=== PATIENT | female | born 1955 | race Caucasian/White ===

== ENCOUNTER 2019-03-03 06:52 | Inpatient (IN) ==
[2019-03-03] MEDS ORDERED: ONDANSETRON INJ 2 MG/ML 2 ML VIAL IV STA (07:04)
[2019-03-03] MEDS ORDERED: SODIUM CHLORIDE 0.9% 1000ML 1,000 ML IV ONE (07:04)
[2019-03-03 07:11] LABS: Basophils # (auto) 0.02 K/uL (0-0.2); Basophils % (auto) 0.4 %; Eosinophils # (auto) 0.11 K/uL (0-0.5); Hematocrit (blood only) 24.8 % (37-47); Hemoglobin 8.4 g/dL (12.0-16.0); Immature Granulocytes # (auto) 0.01 K/uL (0.00-0.02); Immature Granulocytes % (auto) 0.2 %; Lymphocytes # (auto) 2.25 K/uL (1.2-3.4); Lymphocytes % (auto) 40.3 %; Mean Corpuscular Hemoglobin 28.1 pg (25-34); Mean Corpuscular Hgb Conc 33.9 g/dL (32-36); Mean Corpuscular Volume 82.9 fL (80-100); Mean Platelet Volume 9.4 fL (7.4-10.4); Monocytes # (auto) 0.42 K/uL (0.11-0.59); Monocytes % (auto) 7.5 %; Neutrophils # (auto) 2.78 K/uL (1.4-6.5); Neutrophils % (auto) 49.6 %; Platelet Count 305 K/uL (130-400); RDW Coefficient of Variation 14.6 % (11.5-14.5); Red Blood Count 2.99 M/uL (4.2-5.4); White Blood Count 5.59 K/uL (4.8-10.8)
[2019-03-03] MEDS ORDERED: PANTOprazole 80 MG in DEXTROSE 5% 100 ML IV SCH (07:15)
[2019-03-03] MEDS ORDERED: SODIUM CHLORIDE 0.9% 1000ML 1,000 ML IV SCH (07:15)
[2019-03-03 07:28] LABS: Alanine Aminotransferase 25 U/L (12-78); Aspartate Aminotransferase 14 U/L (15-37); BUN Creatinine Ratio 35.1 (10-20); Blood Urea Nitrogen 20 mg/dl (7-18); Calcium 8.2 mg/dl (8.5-10.1); Carbon Dioxide 25 mmol/L (21-32); Chloride 104 mmol/L (98-107); Creatinine Clr Calc Pharmacy 106.8 ml/min; Est GFR (African American) 114.5; Est GFR (Non-African American) 98.8; Glucose 150 mg/dl (70-99); Partial Thromboplastin Time 25.8 Seconds (21.0-31.0); Potassium 3.8 mmol/L (3.5-5.1); Prothrombin Time 10.3 Seconds (9.0-12.0); Sodium 139 mmol/L (136-145)
[2019-03-03] MEDS ORDERED: PANTOprazole 40 MG in DEXTROSE 5% 100 ML IV SCH (07:30)
[2019-03-03 07:33] LABS: Alkaline Phosphatase 80 U/L (45-117); Bilirubin,Total 0.6 mg/dl (0.2-1); Troponin I < 0.015 ng/ml (0-0.045)
--- NOTE | 2019-03-03 08:08 | Emergency Department Note ---
Entered by Hang Beyer acting as a scribe for History of Present Illness General Chief complaint: GI Assessment Stated complaint: DIZZY/GI ASSESSMENT Time Seen by Provider: 03/03/19 06:54 Source: patient and EMS History of Present Illness Provider complaint: GI assessment Onset (ago): day(s) 3 Location: abdomen Severity: similar to prior episodes Pain Consistency: + constant Relieved By: + none Exacerbated By: + none Associated symptoms: + denies other symptoms (Abdominal pain); no fever/chills and no nausea/vomiting The patient is a 63 year old female who presents to the Emergency Room for a GI assessment after having black tarry stool consistently for the past 3 days. Per EMS, the patient woke up this morning and became dizzy and short of breath while ambulating so she called EMS. The patient states she has had prior episodes of GI bleeding in the past and has needed blood transfusions. The patient also has a history of gastric ulcer and reports taking a lot of Ibuprofen as of late for chronic back pain caused by her history of scoliosis, spinal stenosis, and bulging discs. The patient adds that she has a colonoscopy scheduled in 2 days and she has had one before. She also has a history of hypertension. Per EMS, the patient's blood pressure was initially 107/52, his BSG was 172, and he was 98% on room air. Home Medications Home Medications Medication Instructions Recorded Confirmed Type alprazolam [Xanax] 0.5 mg PO HS PRN 03/03/19 03/03/19 History amlodipine [Norvasc] 10 mg PO DAILY 03/03/19 03/03/19 History aripiprazole [Abilify] 10 mg PO DAILY 03/03/19 03/03/19 History bupropion HCl [Wellbutrin SR] 450 mg PO DAILY 03/03/19 03/03/19 History dextroamphetamine-amphetamine 45 mg PO BID 03/03/19 03/03/19 History [Adderall] gabapentin 1,800 mg PO BID 03/03/19 03/03/19 History hydrocodone-acetaminophen [Stanton] 0 tab PO DAILY PRN 03/03/19 03/03/19 History hydromorphone [Dilaudid] 4 mg PO TID PRN 03/03/19 03/03/19 History Allergies Allergy/AdvReac Type Severity Reaction Status Date / Time Bactrim Allergy Unknown unknown Verified 03/20/13 21:21 Cipro Allergy Unknown unknown Verified 03/20/13 21:21 ciprofloxacin Allergy Unknown unknown Verified 03/03/19 07:19 sulfamethoxazole Allergy Unknown unknown Verified 03/03/19 07:19 trimethoprim Allergy Unknown unknown Verified 03/03/19 07:19 IVP CONTRAST DYE Allergy Unknown UNKNOWN Uncoded 03/03/19 07:19 Past Med/Surg History Medical History GI bleed Family History Other No pertinent family history in first degree relatives Social History Feels Safe at Home: Yes Smoking Status: Never smoker Review of Systems See HPI for pertinent positives & negatives. and A total of 10 systems reviewed and were otherwise negative Physical Exam Vital Signs Vital Signs - 24 hr 03/03/19 07:12 03/03/19 07:24 03/03/19 07:30 Temperature 36.6 C Temperature Source Oral Sepsis Recent Fever Within 48 Hours No Sepsis New/Unexplained Change in Mental Status No Sepsis Action Taken by Nursing No Action Required Pulse Rate 91 H 90 Pulse Rate [Apical] Pulse Rate from SpO2 Sensor 91 H Pulse Rhythm Regular Pulse Rhythm [Apical] Pulse Strength Normal Respiratory Rate 20 17 Respiratory Effort / Characteristics Non-Labored Spontaneous Respiratory Depth Normal Respiratory Pattern Regular Blood Pressure 118/70 124/66 Blood Pressure [Right Arm] Blood Pressure Mean 86 85 Blood Pressure Mean [Right Arm] Blood Pressure Position Lying Pulse Oximetry 99 99 100 Oxygen Delivery Method Room Air Room Air 03/03/19 08:00 Temperature Temperature Source Sepsis Recent Fever Within 48 Hours Sepsis New/Unexplained Change in Mental Status Sepsis Action Taken by Nursing Pulse Rate 89 Pulse Rate [Apical] 88 Pulse Rate from SpO2 Sensor 88 Pulse Rhythm Pulse Rhythm [Apical] Regular Pulse Strength Respiratory Rate 17 Respiratory Effort / Characteristics Non-Labored Spontaneous Respiratory Depth Normal Respiratory Pattern Regular Blood Pressure 121/64 Blood Pressure [Right Arm] 121/64 Blood Pressure Mean 83 Blood Pressure Mean [Right Arm] 83 Blood Pressure Position Pulse Oximetry 95 Oxygen Delivery Method Room Air GENERAL: Awake, alert, well-appearing, in no distress HENT: Normocephalic, atraumatic. Oropharynx unremarkable. EYES: Normal conjunctiva. Sclera non-icteric. NECK: Supple. No nuchal rigidity. FROM. No masses. RESPIRATORY: Clear to auscultation. No wheezes. No rales. Normal respiratory effort. CARDIAC: Normal rate. Normal rhythm. No murmurs. No rubs. Extremities warm and well perfused. Pulses equal. No JVD. GI: Soft, non-distended. No tenderness to palpation. No rebound or guarding. No masses. RECTAL: Black melanotic stool, heme positive. MUSCULOSKELETAL: Atraumatic. Chest examination reveals no tenderness. The back is symmetrical on inspection without obvious abnormality. There is no CVA tenderness to palpation. No joint edema. LOWER EXTREMITIES: Calves are equal size bilaterally and non-tender. No edema. No discoloration. NEURO: Normal sensorium. No sensory or motor deficits noted. Course 0655: Past medical records reviewed. The patient was evaluated in room B02, and a complete history and physical examination were performed. Given the patient's current symptoms and history, I informed her that it is very likely she will be hospitalized for further care. She is aware of the severity of the situation and agrees with the treatment plan. 0730: I spoke to Dr. Shea [facility] Hospitalist about the patient's case. He is going to accept the patient for further evaluation. Consultations Consultation #1: I spoke to Dr. Shabbir Munroe [facility] Hospitalist about the patient's case. He is going to accept the patient for further evaluation. Time: 07:30 Administered Medications Sodium Chloride (Nss 1000ml) 1,000 mls @ 100 mls/hr IV .Q10H TON Stop: 03/03/19 17:14 Last Admin: 03/03/19 07:30 Dose: 100 mls/hr Documented by: [id number] Pantoprazole Sodium 40 mg/ (Dextrose) 100 mls @ 20 mls/hr IV Q5H TON Stop: 03/03/19 12:29 Last Admin: 03/03/19 07:51 Dose: 20 mls/hr Documented by: [id number] Discontinued Medications Sodium Chloride (Nss 1000ml) 1,000 mls @ 999 mls/hr IV .Q1H1M ONE Stop: 03/03/19 08:04 Last Infusion: 03/03/19 07:48 Dose: 0 mls/hr Documented by: [id number] Admin: 03/03/19 07:23 Dose: 999 mls/hr Documented by: [id number] Pantoprazole Sodium 80 mg/ (Dextrose) 120 mls @ 480 mls/hr IV TODAY@0715 TON Stop: 03/03/19 07:29 Last Infusion: 03/03/19 07:51 Dose: 0 mls/hr Documented by: [id number] Admin: 03/03/19 07:29 Dose: 480 mls/hr Documented by: [id number] Ondansetron HCl (Zofran) 4 mg IV NOW STA Stop: 03/03/19 07:05 Last Admin: 03/03/19 07:29 Dose: 4 mg Documented by: [id number] Medical Decision Making Differential Diagnosis Differential: Diverticulitis, AVM, Coagulopathy, Colitis, Malignancy, Upper GI bleed, Fissure, Hemorrhoids, amongst other pathologies entertained. Medical Records Attestation: I reviewed the patient's medical records. Home Medications Current Medication List: was personally reviewed by me Laboratory Data Attestation: I reviewed the patient's lab results. Result diagrams: 03/03/19 06:25 03/03/19 06:25 Lab Results 03/03/19 03/03/19 03/03/19 Range/Units 06:25 06:25 06:25 WBC 5.59 (4.8-10.8) K/uL RBC 2.99 L (4.2-5.4) M/uL Hgb 8.4 L (12.0-16.0) g/dL Hct 24.8 L (37-47) % MCV 82.9 (80-100) fL MCH 28.1 (25-34) pg MCHC 33.9 (32-36) g/dL RDW Std Deviation 44.0 (36.4-46.3) fL RDW Coeff of Faizan 14.6 H (11.5-14.5) % Plt Count 305 (130-400) K/uL MPV 9.4 (7.4-10.4) fL Immature Gran % (Auto) 0.2 % Neut % (Auto) 49.6 % Lymph % (Auto) 40.3 % [place] % (Auto) 7.5 % Eos % (Auto) 2.0 % Baso % (Auto) 0.4 % Immature Gran # (Auto) 0.01 (0.00-0.02) K/uL Neut # (Auto) 2.78 (1.4-6.5) K/uL Lymph # (Auto) 2.25 (1.2-3.4) K/uL [place] # (Auto) 0.42 (0.11-0.59) K/uL Eos # (Auto) 0.11 (0-0.5) K/uL Baso # (Auto) 0.02 (0-0.2) K/uL PT 10.3 (9.0-12.0) Seconds INR 1.0 (0.9-1.1) APTT 25.8 (21.0-31.0) Seconds PTT Ratio 1.0 Sodium 139 (136-145) mmol/L Potassium 3.8 (3.5-5.1) mmol/L Chloride 104 (98-107) mmol/L Carbon Dioxide 25 (21-32) mmol/L Anion Gap 10.0 (3-11) BUN 20 H (7-18) mg/dl Creatinine 0.58 L (0.6-1.2) mg/dl Est Cr Clr Drug Dosing 106.8 ml/min Est GFR ( Amer) 114.5 Est GFR (Non-Af Amer) 98.8 BUN/Creatinine Ratio 35.1 H (10-20) Glucose 150 H (70-99) mg/dl Calcium 8.2 L (8.5-10.1) mg/dl Total Bilirubin 0.6 (0.2-1) mg/dl AST 14 L (15-37) U/L ALT 25 (12-78) U/L Alkaline Phosphatase 80 (45-117) U/L Troponin I < 0.015 (0-0.045) ng/ml Total Protein 6.0 L (6.4-8.2) gm/dl Albumin 3.0 L (3.4-5.0) gm/dl Globulin 3.0 (2.5-4.0) gm/dl Albumin/Globulin Ratio 1.0 (0.9-2) POC Stool Occult Blood (Negative) 03/03/19 Range/Units 07:11 WBC (4.8-10.8) K/uL RBC (4.2-5.4) M/uL Hgb (12.0-16.0) g/dL Hct (37-47) % MCV (80-100) fL MCH (25-34) pg MCHC (32-36) g/dL RDW Std Deviation (36.4-46.3) fL RDW Coeff of Faizan (11.5-14.5) % Plt Count (130-400) K/uL MPV (7.4-10.4) fL Immature Gran % (Auto) % Neut % (Auto) % Lymph % (Auto) % [place] % (Auto) % Eos % (Auto) % Baso % (Auto) % Immature Gran # (Auto) (0.00-0.02) K/uL Neut # (Auto) (1.4-6.5) K/uL Lymph # (Auto) (1.2-3.4) K/uL [place]ley # (Auto) (0.11-0.59) K/uL Eos # (Auto) (0-0.5) K/uL Baso # (Auto) (0-0.2) K/uL PT (9.0-12.0) Seconds INR (0.9-1.1) APTT (21.0-31.0) Seconds PTT Ratio Sodium (136-145) mmol/L Potassium (3.5-5.1) mmol/L Chloride (98-107) mmol/L Carbon Dioxide (21-32) mmol/L Anion Gap (3-11) BUN (7-18) mg/dl Creatinine (0.6-1.2) mg/dl Est Cr Clr Drug Dosing ml/min Est GFR ( Amer) Est GFR (Non-Af Amer) BUN/Creatinine Ratio (10-20) Glucose (70-99) mg/dl Calcium (8.5-10.1) mg/dl Total Bilirubin (0.2-1) mg/dl AST (15-37) U/L ALT (12-78) U/L Alkaline Phosphatase (45-117) U/L Troponin I (0-0.045) ng/ml Total Protein (6.4-8.2) gm/dl Albumin (3.4-5.0) gm/dl Globulin (2.5-4.0) gm/dl Albumin/Globulin Ratio (0.9-2) POC Stool Occult Blood Positive A (Negative) ECG Data Attestation: I personally reviewed and interpreted this ECG as follows: Indication: other (GI Bleed) Rate (beats per minute): 91 Rhythm: normal sinus Findings: no PAC, no PVC, no ST depression, no ST elevation, no acute ischemic change and no ectopy Blood Pressure Blood Pressure Findings: Normal blood pressure Blood Pressure Disposition: further management by hospitalist KERRI Narrative This is a 63-year-old female who presents emergency department complaining of melanotic stools. Patient has history of GI bleed and has been taking ibuprofen. She wishes to start following up with physicians up here as opposed to the [facility]. Her hemoglobin here was found to be 8.5. She was typed and screened and started on a Protonix bolus and drip. The patient was original ly hypotensive upon arrival to the emergency department therefore she was given a normal saline bolus x2. Repeat blood pressure revealed improvement in the patient's symptoms. I did discuss the case with the hospitalist service who agreed to admit the patient. Patient was in agreement with the treatment plan. Impression & Plan Acute GI bleeding, Acute hypotension, Anemia Discharge Plan Visit Data Chief Complaint: GI Assessment Stated Complaint: DIZZY/GI ASSESSMENT Other Complaint: Dizziness ED Provider: Killian Pratt Discharge Problem: Acute GI bleeding, Acute hypotension, Anemia Forms Stand Alone Forms: My [facility] Prescriptions Prescriptions: No Action bupropion HCl [Wellbutrin SR] 150 mg Tablet Sustained-Release 12 Hr 450 mg PO DAILY RF: 0 gabapentin 600 mg Tablet 1,800 mg PO BID RF: 0 hydrocodone-acetaminophen [Stanton] 10-325 mg Tablet PO DAILY PRN (Reason: Pain) RF: 0 dextroamphetamine-amphetamine [Adderall] 30 mg Tablet 45 mg PO BID RF: 0 alprazolam [Xanax] 0.5 mg Tablet 0.5 mg PO HS PRN (Reason: Sleep) RF: 0 amlodipine [Norvasc] 10 mg Tablet 10 mg PO DAILY RF: 0 hydromorphone [Dilaudid] 4 mg Tablet 4 mg PO TID PRN (Reason: Pain) RF: 0 aripiprazole [Abilify] 10 mg Tablet 10 mg PO DAILY RF: 0 Referrals Referrals: PCP,NO [Primary Care Provider] - Discharge Problem: Anemia Qualifiers: Anemia type: unspecified type Qualified Code(s): D64.9 - Anemia, unspecified The scribe's documentation has been prepared under my direction and personally reviewed by me in its entirety. I confirm that the note above accurately reflects all work, treatment, procedures, and medical decision making performed by me.
[2019-03-03] MEDS ORDERED: METOCLOPRAMIDE HCL INJ 5 MG/ML 2 ML VIAL IV STA (09:24)
--- NOTE | 2019-03-03 09:24 | Gastrointestinal Consultation ---
Date of Consultation March 03, 2019 Assessment & Plan (1) Acute GI bleeding: (2) Melena: 1. NPO for now. 2. Reglan 10 mg IV now. 3. EGD with Dr. Montgomery for further evaluation. 4. Continue PPI ggt at 8 mg/hr. 5. Maintain 2 large bore IVs. 6. Additional recommendations pending results of testing. Supervising Physician Co-Signing Physician Notes I personally evaluated the patient and agree with the findings as documented by MERNA Mackenzie Exam: abd: soft, nt, nd History of Present Illness Reason for Consultation: Melena Requesting Physician: Dr. Shea Attending Physician: Dr. Shea History of Present Illness Patient is a pleasant 63 year-old female with a history of obesity, depression, chronic low back pain, ADD, HTN and GIB one year ago. She is status post Manolo-en-Y gastric bypass greater than 5 years ago. She reports she had been taking Protonix after her last hospitalization for GIB she was taking oral Protonix but did eventually stop the medication as she was not having any abdominal pain or other GI complaints. One month ago, however, she moved from [place], [place] to [place], [place]. She reports that over the past two weeks, she has been taking oral NSAIDs as moving heavy boxes caused her low back pain to worsen. Three days ago, she began to notice black and tarry stools. This morning she passed two dark stools as well as became quite dizzy and short of breath just ambulating to the restroom from her bedroom. Due to these symptoms and prior history of GIB, she presented to the ER for further evaluation. On arrival, she was noted to have a H&H of 8.4/24.8 with MCV 82.9. BUN was slightly elevated at 20. INR was 1.0. Currently, she is reporting some mild nausea but no vomiting or hematemesis. She has been on placed on a PPI ggt. Last meal was yesterday. She has not had any liquids. Allergies Allergy/AdvReac Type Severity Reaction Status Date / Time Bactrim Allergy Unknown unknown Verified 03/20/13 21:21 Cipro Allergy Unknown unknown Verified 03/20/13 21:21 ciprofloxacin Allergy Unknown unknown Verified 03/03/19 07:19 sulfamethoxazole Allergy Unknown unknown Verified 03/03/19 07:19 trimethoprim Allergy Unknown unknown Verified 03/03/19 07:19 IVP CONTRAST DYE Allergy Unknown UNKNOWN Uncoded 03/03/19 07:19 Home Medications Home Medications Medication Instructions Recorded Confirmed Type alprazolam [Xanax] 0.5 mg PO HS PRN 03/03/19 03/03/19 History amlodipine [Norvasc] 10 mg PO DAILY 03/03/19 03/03/19 History aripiprazole [Abilify] 10 mg PO DAILY 03/03/19 03/03/19 History bupropion HCl [Wellbutrin SR] 450 mg PO DAILY 03/03/19 03/03/19 History dextroamphetamine-amphetamine 45 mg PO BID 03/03/19 03/03/19 History [Adderall] gabapentin 1,800 mg PO BID 03/03/19 03/03/19 History hydrocodone-acetaminophen [Gorin] 0 tab PO DAILY PRN 03/03/19 03/03/19 History hydromorphone [Dilaudid] 4 mg PO TID PRN 03/03/19 03/03/19 History Patient History Medical History GI bleed Family History Mother Colorectal cancer Father Lung cancer Social History Current Living Situation: Family Feels Safe at Home: Yes Smoking Status: Never smoker Hx Alcohol Use: No Immunizations: History as per HPI. Past surgical history significant for: EGD, colonoscopy, Manolo-en-Y bypass, L TKA, R MARTÍN, R TSA, R ankle surgery. Review of Systems Review of Systems: All systems reviewed & are unremarkable except as noted in HPI & below Physical Exam Constitutional: WD/WN, vitals as above Eyes: EOM intact bilaterally Neck: normal appearance Respiratory: normal respiratory effort, lungs clear to auscultation Cardiovascular: Rate/Rhythm: regular rhythm and + tachycardic Gastrointestinal (Abdomen): Inspection/Auscultation: abdomen normal to ins pection and + hyperactive bowel sounds Percussion/Palpation: + abdomen tender (bilateral lower quadrant) Musculoskeletal: Extremities: no cyanosis no lower extremity edema Skin: no rashes, warm and dry Neurologic: moves all extremities Psychiatric: A+Ox3, euthymic affect Results & Data Vital Signs (Past 12 Hours) Vital Signs Temp Pulse Pulse Resp BP BP Pulse Ox 03/03/19 08:00 89 88 17 121/64 121/64 95 10/03/19 07:30 90 17 124/66 100 03/03/19 07:24 99 03/03/19 07:12 36.6 C 91 H 20 118/70 99 Laboratory Results Abnormal lab results 03/03/19 03/03/19 03/03/19 Range/Units 06:25 06:25 07:11 RBC 2.99 L (4.2-5.4) M/uL Hgb 8.4 L (12.0-16.0) g/dL Hct 24.8 L (37-47) % RDW Coeff of Faizan 14.6 H (11.5-14.5) % BUN 20 H (7-18) mg/dl Creatinine 0.58 L (0.6-1.2) mg/dl BUN/Creatinine Ratio 35.1 H (10-20) Glucose 150 H (70-99) mg/dl Calcium 8.2 L (8.5-10.1) mg/dl AST 14 L (15-37) U/L Total Protein 6.0 L (6.4-8.2) gm/dl Albumin 3.0 L (3.4-5.0) gm/dl POC Stool Occult Blood Positive A (Negative) PG Care Time/CCT Total # of Minutes Spent Total Time Spent with Patient: Total time spent is greater than 50% in coordination of care (as documented) at patient's floor/unit and/or counseling patient:
[2019-03-03] MEDS ORDERED: METOCLOPRAMIDE HCL INJ 5 MG/ML 2 ML VIAL ONE (09:37)
--- NOTE | 2019-03-03 09:55 | History & Physical Report ---
Date of Service March 03, 2019 Assessment & Plan (1) Acute GI bleeding: likely upper GI bleed given h/o melena, epigastric pain, Ibuprofen use for the past few weeks will make NPO, plan for EGD of gastric pouch today Protonix drip GI consulted admit to tele (2) Melena: likely due to upper GI bleed melena for past three days (3) Acute hypotension: resolved with NSS bolus no signs of hemorrhagic shock HR < 100 (4) Anemia: acute blood loss anemia Hb is 8.4 repeat this afternoon with a type and cross at that time (5) Chronic pain: continue Dilaudid 4mg PO TID with sip of water (6) H/O gastric bypass: 9 years ago if the pouch shows no signs of bleeding then will discuss with GI to determine if we should transfer to tertiary care (7) Neuropathy: continue Gabapentin (8) Anxiety: continue Xanax HS (9) Depression: Abilify Wellbutrin (10) Osteoarthritis: advised to not take Ibuprofen in the future History of Present Illness Chief Complaint: I've had dark stools Primary Care Provider: NO PCP 63 yo female with history of gastric bypass, Hepatitis C that has been treated, chronic pain syndrome, severe osteoarthritis with multiple joint replacements p resents to the ED today with a chief complaint of dark stools for three days. She says she has a remote history of gastric ulcers. She says that she followed with GI group in the [place] area, her last colonoscopy was 7 years ago and she was actually scheduled for routine screening scope tomorrow. She just moved to the [facility] in the past few weeks. Has yet to establish medical c are here but is interested in transferring her care. She says that her stools have been dark, have been formed. She has had a poor appetite and has been experiencing nausea but no vomiting. She has some lower abdominal pain. She feels weak, light headed, short of breath on exertion. She did not eat this morning, last time she ate or drank was yesterday at 1pm. She denies any hematemesis, denies seeing any bright red blood per rectum. Confirmed her history of gastric bypass 9 years ago, Manolo-en-Y. She says that she has been taking Ibuprofen twice a day for the past few weeks due to arthritis pain. She does not always take the Ibuprofen with food. She denies alcohol consumption, denies taking steroids, denies smoking. In the ED her Hb is 8.4, vitals are stable. Asked to see patient for admission. Medical history: chronic pain syndrome, anxiety disorder, neuropathy, depression, severe osteoarthritis, spinal stenosis, scoliosis, degenerative disc disease, diverticular disease, h/o peptic ulcers, h/o hepatitis C that she reports is fully treated Surgical history: gastric bypass Manolo-en-Y 9 years ago, subsequent breast reduction surgery and tummy tuck, right MARTÍN, right TKA, multiple surgeries on her feet, total ankle replacement, colonoscopy, EGD Social history: non smoker, no alcohol, no drugs, retired Family history: mother from colon cancer, father from lung cancer with brain mets, he was a smoker Allergies Allergy/AdvReac Type Severity Reaction Status Date / Time Bactrim Allergy Unknown unknown Verified 03/20/13 21:21 Cipro Allergy Unknown unknown Verified 03/20/13 21:21 ciprofloxacin Allergy Unknown unknown Verified 03/03/19 07:19 sulfamethoxazole Allergy Unknown unknown Verified 03/03/19 07:19 trimethoprim Allergy Unknown unknown Verified 03/03/19 07:19 IVP CONTRAST DYE Allergy Unknown UNKNOWN Uncoded 03/03/19 07:19 Home Medications Home Medications Medication Instructions Recorded Confirmed Type alprazolam [Xanax] 0.5 mg PO HS PRN 03/03/19 03/03/19 History amlodipine [Norvasc] 10 mg PO DAILY 03/03/19 03/03/19 History aripiprazole [Abilify] 10 mg PO DAILY 03/03/19 03/03/19 History bupropion HCl [Wellbutrin SR] 450 mg PO DAILY 03/03/19 03/03/19 History dextroamphetamine-amphetamine 45 mg PO BID 03/03/19 03/03/19 History [Adderall] gabapentin 1,800 mg PO BID 03/03/19 03/03/19 History hydrocodone-acetaminophen [[place]] 0 tab PO DAILY PRN 03/03/19 03/03/19 History hydromorphone [Dilaudid] 4 mg PO TID PRN 03/03/19 03/03/19 History Past Med/Surg History Medical History GI bleed Family History Mother Colorectal cancer Father Lung cancer Social History Current Living Situation: Family Feels Safe at Home: Yes Smoking Status: Never smoker Hx Alcohol Use: No Review of Systems Review of Systems: All systems reviewed & are unremarkable except as noted in HPI & below Constitutional: + fatigue and + weakness; no fever, no chills and no sweats Respiratory: + dyspnea on exertion; no cough and no dyspnea Cardiovascular: no chest pain, no palpitations, no syncope and no edema Gastrointestinal: + abdominal pain, + nausea and + melena; no vomiting, no constipation, no diarrhea/loose stools and no blood in stools Genitourinary: no dysuria and no urinary frequency Musculoskeletal: + back pain and + joint pain Physical Exam Constitutional: WD/WN, vitals as above + overweight Eyes: PERRL, conjunctivae normal, anicteric sclerae ENMT: external ear and nose normal, oropharynx normal Neck: trachea midline, no thyromegaly Respiratory: normal respiratory effort, lungs clear to auscultation Cardiovascular: RRR, no murmur, no edema Gastrointestinal (Abdomen): Inspection/Auscultation: abdomen normal to inspection; abdomen not distended Percussion/Palpation: + abdomen tender (mild, diffuse), abdomen soft and normal to percussion; no guarding and no hepatosplenomegaly Musculoskeletal: no cyanosis or clubbing, extremities motor strength 5/5 Skin: no rashes, warm and dry Neurologic: patellar DTR's 2+ bilat, sensation intact and PERRL, EOMI, accommodation nl, no face palsy, no dysarthria Psychiatric: A+Ox3, euthymic affect Lymphatic: no cervical or axillary lymphadenopathy Results & Data Vital Signs (Past 12 Hours) Vital Signs Temp Pulse Pulse Resp BP BP Pulse Ox 03/03/19 08:00 89 88 17 121/64 121/64 95 03/03/19 07:30 90 17 124/66 100 03/03/19 07:24 99 03/03/19 07:12 36.6 C 91 H 20 118/70 99 Laboratory Results Laboratory Results - last 24 hr 03/03/19 03/03/19 03/03/19 06:25 06:25 06:25 WBC 5.59 RBC 2.99 L Hgb 8.4 L Hct 24.8 L MCV 82.9 MCH 28.1 MCHC 33.9 RDW Std Deviation 44.0 RDW Coeff of Faizan 14.6 H Plt Count 305 MPV 9.4 Immature Gran % (Auto) 0.2 Neut % (Auto) 49.6 Lymph % (Auto) 40.3 [place] % (Auto) 7.5 Eos % (Auto) 2.0 Baso % (Auto) 0.4 Immature Gran # (Auto) 0.01 Neut # (Auto) 2.78 Lymph # (Auto) 2.25 [place] # (Auto) 0.42 Eos # (Auto) 0.11 Baso # (Auto) 0.02 PT 10.3 INR 1.0 APTT 25.8 PTT Ratio 1.0 Sodium 139 Potassium 3.8 Chloride 104 Carbon Dioxide 25 Anion Gap 10.0 BUN 20 H Creatinine 0.58 L Est Cr Clr Drug Dosing 106.8 Est GFR ( Amer) 114.5 Est GFR (Non-Af Amer) 98.8 BUN/Creatinine Ratio 35.1 H Glucose 150 H Calcium 8.2 L Total Bilirubin 0.6 AST 14 L ALT 25 Alkaline Phosphatase 80 Troponin I < 0.015 Total Protein 6.0 L Albumin 3.0 L Globulin 3.0 Albumin/Globulin Ratio 1.0 POC Stool Occult Blood Blood Type Antibody Screen 03/03/19 03/03/19 07:11 07:11 WBC RBC Hgb Hct MCV MCH MCHC RDW Std Deviation RDW Coeff of Faizan Plt Count MPV Immature Gran % (Auto) Neut % (Auto) Lymph % (Auto) [place] % (Auto) Eos % (Auto) Baso % (Auto) Immature Gran # (Auto) Neut # (Auto) Lymph # (Auto) [place] # (Auto) Eos # (Auto) Baso # (Auto) PT INR APTT PTT Ratio Sodium Potassium Chloride Carbon Dioxide Anion Gap BUN Creatinine Est Cr Clr Drug Dosing Est GFR ( Amer) Est GFR (Non-Af Amer) BUN/Creatinine Ratio Glucose Calcium Total Bilirubin AST ALT Alkaline Phosphatase Troponin I Total Protein Albumin Globulin Albumin/Globulin Ratio POC Stool Occult Blood Positive A Blood Type A Positive Antibody Screen NEGATIVE Code Status & VTE Plan Code Status full code VTE Prophylaxis Plan VTE Prophylaxis will be ordered: Yes PG Care Time/CCT Total # of Minutes Spent Total Time Spent with Patient: Total time spent is greater than 50% in coordination of care (as documented) at patient's floor/unit and/or counseling patient: (1) Anemia Anemia type: unspecified type Qualified Code(s): D64.9 - Anemia, unspecified
[2019-03-03] MEDS ORDERED: MIDAZOLAM HCL 1 MG/ML 2ML VIAL ONE (10:30)
[2019-03-03] MEDS ORDERED: LIDOCAINE HCL 2% 2 ML VIAL/AMP(20MG/ML) INFIL ONE (10:30)
[2019-03-03] MEDS ORDERED: PROPOFOL IV EMULSION 10 MG/ML 20 ML VIAL IV ONE ×2 (10:30→11:17)
[2019-03-03] MEDS ORDERED: ONDANSETRON INJ 2 MG/ML 2 ML VIAL ONE (10:31)
--- NOTE | 2019-03-03 10:38 | Anesthesiology Consultation ---
Date of Service March 03, 2019 Assessment & Plan (1) Encounter for pre-operative examination: Chart Review Chart Review: Acceptable Risk for Surgery and Patient NOT seen in Pre Admission Testing Consults Requested none History Surgery Operation Date: 03/03/19 09:30 Proposed Procedures p Esophagogastroduodenoscopy Dr. Ulises Montgomery MD Height/Weight Height: 5 ft 4 in Weight: 86.1 kg Allergies Allergy/AdvReac Type Severity Reaction Status Date / Time Bactrim Allergy Unknown unknown Verified 03/20/13 21:21 Cipro Allergy Unknown unknown Verified 03/20/13 21:21 ciprofloxacin Allergy Unknown unknown Verified 03/03/19 07:19 sulfamethoxazole Allergy Unknown unknown Verified 03/03/19 07:19 trimethoprim Allergy Unknown unknown Verified 03/03/19 07:19 IVP CONTRAST DYE Allergy Unknown UNKNOWN Uncoded 03/03/19 07:19 Medications Home Medications Medication Instructions Recorded Confirmed Last Taken alprazolam [Xanax] 0.5 mg PO HS PRN 03/03/19 03/03/19 Unknown amlodipine [Norvasc] 10 mg PO DAILY 03/03/19 03/03/19 03/02/19 aripiprazole [Abilify] 10 mg PO DAILY 03/03/19 03/03/19 03/02/19 bupropion HCl [Wellbutrin SR] 450 mg PO DAILY 03/03/19 03/03/19 03/02/19 dextroamphetamine-amphetamine 45 mg PO BID 03/03/19 03/03/19 03/02/19 [Adderall] gabapentin 1,800 mg PO BID 03/03/19 03/03/19 03/02/19 hydrocodone-acetaminophen [[place]] 0 tab PO DAILY PRN 03/03/19 03/03/19 Unknown hydromorphone [Dilaudid] 4 mg PO TID PRN 03/03/19 03/03/19 Unknown Active Medications Generic Name Dose Route Start Last Admin Trade Name Freq PRN Reason Stop Dose Admin Sodium Chloride 1,000 mls @ 100 mls/hr 03/03/19 07:15 03/03/19 07:30 Nss 1000ml IV 03/03/19 17:14 100 mls/hr .Q10H TON Administration Pantoprazole Sodium 40 mg/ 100 mls @ 20 mls/hr 03/03/19 07:30 03/03/19 07:51 Dextrose IV 03/03/19 12:29 20 mls/hr Q5H TON Administration Past Medical History Medical History Osteoarthritis Neuropathy Chronic pain Melena Anemia (Acute) Anxiety Anxiety Depression GI bleed Hypertension Past Family History Family History Mother Colorectal cancer Father Lung cancer Past Surgical History Surgical History H/O gastric bypass Social History Smoking Status: Never smoker Hx Alcohol Use: No Physical Exam Vital Signs Last Vital Signs Temp 36.7 C 03/03/19 10:30 Pulse 89 03/03/19 10:30 Resp 16 03/03/19 10:30 BP 103/66 03/03/19 10:30 Pulse Ox 95 03/03/19 10:30 Testing Laboratory Results 03/03/19 06:25 03/03/19 06:25 PT 10.3 Seconds (9.0-12.0) 03/03/19 06:25 INR 1.0 (0.9-1.1) 03/03/19 06:25 APTT 25.8 Seconds (21.0-31.0) 03/03/19 06:25 Blood Type A Positive 03/03/19 07:11 Antibody Screen NEGATIVE 03/03/19 07:11 Electrocardiogram Date: 03/03/19 Findings: + NSR @ (91) and + NSST changes
[2019-03-03] MEDS ORDERED: ENDOSCOPIC MARKER 5 ML SYR TOP ONE (11:17)
[2019-03-03] MEDS ORDERED: PHENYLEPHRINE 100MCG/ML 5ML SYR ONE (11:27)
--- NOTE | 2019-03-03 11:31 | GI REPORT ---
Patient Name: Milagros Mcgraw Procedure Date: 03/03/2019 10:48 AM Date of : 1955 Admit Type: Emergency Department Age: 63 Gender: Female Attending MD: Anders Montgomery MD Procedure: Upper GI endoscopy Providers: Anders Montgomery MD Referring MD: Referred Self Indications: Melena Medicines: Monitored Anesthesia Care Complications: No immediate complications. Estimated blood loss: None. Estimated Blood Loss: Estimated blood loss: none. Procedure: Pre-Anesthesia Assessment: - Prior Anticoagulants: The patient has taken ibuprofen, last dose was 1 day prior to procedure. - ASA Grade Assessment: III - A patient with severe systemic disease. After obtaining informed consent, the endoscope was passed under direct vision. Throughout the procedure, the patient's blood pressure, pulse, and oxygen saturations were monitored continuously. The Endoscope was introduced through the mouth, and advanced to the afferent and efferent jejunal loops. The patient tolerated the procedure well. Findings: The examined esophagus was normal. Three non-bleeding cratered and superficial gastric ulcers were found. One ulcer with a visible vessel was found at the anastomosis. Area was successfully injected with 8 mL of a 1:10,000 solution of epinephrine for hemostasis. For hemostasis, two hemostatic clips were successfully placed. There was no bleeding at the end of the procedure. Estimated blood loss: none. --the remaining examined stomach was otherwise normal. The examined duodenum was normal. The examined jejunum was normal. Both afferent and efferent loops were examined without active bleeding. Impression: - Normal esophagus. - Non-bleeding gastric ulcers with a visible vessel. Injected. Clips were placed. - Normal examined duodenum. - Normal examined jejunum. - No specimens collected. Recommendation: - [facility]. - Clear liquid diet today. - No ibuprofen, naproxen, or other non-steroidal anti-inflammatory drugs. -Continue PPI drip for 72 hours then switch to protonix 40 mg BID for 8 weeks Anders Montgomery MD 03/03/2019 11:30:50 AM This report has been signed electronically. Note Initiated On: 03/03/2019 10:48 AM Number of Addenda: 0 I attest to the content of the Intraoperative Record and orders documented therein, exceptions below {[id number]}
--- NOTE | 2019-03-03 11:33 | Communication Note ---
Date of Service: March 03, 2019 GI brief procedure note: see full procedure note for complete details EGD performed and showed anastomotic ulcer with visible vessel, this was treated with epinephrine 1:10,000, 8 mL, and endoclips x 2 Recs: protonix drip for 72 hours, then protonix 40 mg BID for 8 weeks clear liquids now, advance diet as tolerated tomorrow morning rest as per primary team
--- NOTE | 2019-03-03 11:36 | Anesthesiology Progress Note ---
Date of Service March 03, 2019 Anesthesia Post Procedure Vital Signs Vital Signs: Temp Pulse Pulse Resp BP BP Pulse Ox 03/03/19 10:30 36.7 C 89 16 103/66 95 03/03/19 09:30 88 17 105/68 03/03/19 08:00 89 88 17 121/64 121/64 95 03/03/19 07:30 90 17 124/66 100 03/03/19 07:24 99 03/03/19 07:12 36.6 C 91 H 20 118/70 99 Transfer of Care Handoff Completed per policy Notes Mental Status: alert / awake / arousable Patient Amnestic to Procedure: Yes Nausea / Vomiting: adequately controlled Pain: adequately controlled Airway Patency, RR, SpO2: stable & adequate BP & HR: stable & adequate Hydration State: stable & adequate Anesthetic Complications: no major complications apparent and Pt Satisfied with anesthetic care Notes: The patient is awake and her vitals are stable.
[2019-03-03] MEDS: PANTOprazole 40 MG in DEXTROSE 5% 100 ML IV SCH ×3 (12:15→22:50)
[2019-03-03] MEDS ORDERED: SODIUM CHLORIDE 0.9% 250 ML IV PRN ×2 (12:44→13:40)
[2019-03-03] MEDS ORDERED: AMPHETAMINE ASP/SULF/DEXTRAMPH 20 MG TAB PO SCH (12:44)
[2019-03-03] MEDS ORDERED: ONDANSETRON INJ 2 MG/ML 2 ML VIAL IV PRN (12:44)
[2019-03-03 13:37] LABS: Hematocrit (blood only) 19.4 % (37-47); Hemoglobin 6.5 g/dL (12.0-16.0)
[2019-03-03] MEDS: GABAPENTIN 600 MG TAB PO SCH ×2 (13:48→21:25)
[2019-03-03] MEDS: ARIPiprazole 10 MG TAB PO SCH (13:48)
[2019-03-03] MEDS: BuPROPion SR 150 MG TABCR PO SCH (13:49)
[2019-03-03] MEDS: AMPHETAMINE ASP/SULF/DEXTRAMPH 5 MG TAB PO SCH ×2 (13:54→21:25)
[2019-03-03] MEDS: AMPHETAMINE ASP/SULF/DEXTRAMPH 20 MG TAB PO SCH ×2 (13:54→21:25)
[2019-03-03] MEDS: HYDROmorphone HCL 2 MG TAB PO PRN ×2 (13:55→18:21)
[2019-03-03 14:06] LABS: iSTAT Creatinine 0.5 mg/dl (0.6-1.3); iSTAT Hemoglobin 7.5 g/dl (12.0-16.0); iSTAT Ionized Calcium 1.1 mmol/l (1.12-1.32); iSTAT Potassium 3.8 mEq/L (3.3-5.0)
[2019-03-03] MEDS ORDERED: SUMAtriptan succinate 25 MG TAB PO ONE (20:53)
[2019-03-03] MEDS ORDERED: SUMAtriptan succinate 100 MG TAB PO ONE (20:53)
[2019-03-03] MEDS: ALPRAZolam 0.5 MG TABLET PO PRN (21:25)
[2019-03-03] MEDS: TRAVOPROST Z 0.004% OPH SOLN 2.5 ML BTL OPB SCH (21:26)
[2019-03-04] MEDS: HYDROmorphone HCL 2 MG TAB PO PRN ×3 (02:40→14:23)
[2019-03-04] MEDS: PANTOprazole 40 MG in DEXTROSE 5% 100 ML IV SCH ×5 (03:54→23:45)
[2019-03-04] MEDS ORDERED: SUMAtriptan succinate 100 MG TAB PO ONE (04:15)
[2019-03-04 07:36] LABS: Hematocrit (blood only) 26.6 % (37-47)
--- NOTE | 2019-03-04 07:41 | Anesthesiology Progress Note ---
Date of Service March 04, 2019 Anesthesia Post Procedure Vital Signs Vital Signs: Temp Pulse Pulse Pulse Resp BP BP 03/04/19 07:29 36.4 C L 81 18 115/74 03/04/19 04:00 36.7 C 92 H 18 03/03/19 23:50 36.9 C 95 H 20 106/70 03/03/19 20:13 36.7 C 92 H 18 129/77 03/03/19 19:32 36.7 C 90 18 117/66 03/03/19 18:42 36.7 C 94 H 20 122/74 03/03/19 18:22 90 18 121/73 03/03/19 18:00 36.9 C 97 H 16 115/70 03/03/19 17:57 36.9 C 93 H 20 122/72 03/03/19 17:41 36.9 C 97 H 20 120/72 03/03/19 17:33 36.9 C 97 H 18 114/69 03/03/19 17:15 36.4 C L 94 H 20 03/03/19 16:10 36.9 C 92 H 18 122/69 03/03/19 16:01 98 H 18 122/69 03/03/19 16:00 99 H 26 H 03/03/19 15:53 36.9 C 98 H 16 121/64 03/03/19 15:46 94 H 17 119/67 03/03/19 15:45 94 H 18 03/03/19 15:31 96 H 19 117/64 03/03/19 15:30 36.9 C 97 H 20 117/64 03/03/19 15:16 96 H 20 119/63 03/03/19 15:15 96 H 19 03/03/19 15:11 97 H 20 120/64 03/03/19 15:10 36.2 C L 64 20 120/64 03/03/19 15:00 97 H 24 03/03/19 14:54 36.2 C L 113 H 19 134/57 L 03/03/19 14:52 120 H 24 134/57 L 03/03/19 14:45 96 H 23 03/03/19 14:30 95 H 19 03/03/19 14:15 85 12 03/03/19 14:00 90 18 03/03/19 13:45 87 17 03/03/19 13:30 89 19 03/03/19 13:15 87 16 03/03/19 13:00 87 13 03/03/19 12:45 90 28 H 03/03/19 12:30 86 19 03/03/19 12:19 36.5 C 86 15 03/03/19 12:16 88 20 03/03/19 12:14 87 89 15 115/62 03/03/19 12:13 03/03/19 11:37 85 22 03/03/19 11:22 36.7 C 89 16 03/03/19 10:30 36.7 C 89 16 03/03/19 09:45 85 15 03/03/19 09:30 88 17 105/68 03/03/19 09:15 89 18 03/03/19 08:45 85 17 03/03/19 08:15 87 18 03/03/19 08:00 89 88 17 121/64 03/03/19 07:45 87 16 BP Pulse Ox 03/04/19 07:29 91 03/04/19 04:00 117/71 91 03/03/19 23:50 95 03/03/19 20:13 96 03/03/19 19:32 94 03/03/19 18:42 96 03/03/19 18:22 98 03/03/19 18:00 94 03/03/19 17:57 98 03/03/19 17:41 98 03/03/19 17:33 98 03/03/19 17:15 122/77 99 03/03/19 16:10 93 03/03/19 16:01 93 03/03/19 16:00 93 03/03/19 15:53 96 03/03/19 15:46 93 03/03/19 15:45 93 03/03/19 15:31 94 03/03/19 15:30 94 03/03/19 15:16 95 03/03/19 15:15 94 03/03/19 15:11 94 03/03/19 15:10 95 03/03/19 15:00 96 03/03/19 14:54 100 03/03/19 14:52 03/03/19 14:45 03/03/19 14:30 03/03/19 14:15 03/03/19 14:00 03/03/19 13:45 03/03/19 13:30 03/03/19 13:15 03/03/19 13:00 03/03/19 12:45 03/03/19 12:30 03/03/19 12:19 115/62 94 03/03/19 12:16 03/03/19 12:14 123/66 95 03/03/19 12:13 94 03/03/19 11:37 123/62 98 03/03/19 11:22 109/57 L 97 03/03/19 10:30 103/66 95 03/03/19 09:45 97 03/03/19 09:30 03/03/19 09:15 100 03/03/19 08:45 98 03/03/19 08:15 95 03/03/19 08:00 121/64 95 03/03/19 07:45 96 Pain Intensity Abdomen: Pain Intensity: 7 Notes Mental Status: alert / awake / arousable and participated in evaluation Patient Amnestic to Procedure: Yes Nausea / Vomiting: adequately controlled Pain: adequately controlled Airway Patency, RR, SpO2: stable & adequate BP & HR: stable & adequate Hydration State: stable & adequate Anesthetic Complications: Pt Satisfied with anesthetic care
[2019-03-04] MEDS: GABAPENTIN 600 MG TAB PO SCH ×2 (08:01→20:46)
[2019-03-04] MEDS: ARIPiprazole 10 MG TAB PO SCH (08:01)
[2019-03-04] MEDS: BuPROPion SR 150 MG TABCR PO SCH (08:01)
[2019-03-04 08:12] LABS: BUN Creatinine Ratio 23.7 (10-20); Calcium 8.1 mg/dl (8.5-10.1); Creatinine Clr Calc Pharmacy 105.5 ml/min; Est GFR (African American) 113.2; Est GFR (Non-African American) 97.7
[2019-03-04] MEDS: AMPHETAMINE ASP/SULF/DEXTRAMPH 20 MG TAB PO SCH ×2 (08:13→20:46)
[2019-03-04] MEDS: AMPHETAMINE ASP/SULF/DEXTRAMPH 5 MG TAB PO SCH ×2 (08:14→20:45)
--- NOTE | 2019-03-04 09:37 | Gastroenterology Progress Note ---
Date of Service March 04, 2019 Assessment & Plan (1) Ulcer at site of surgical anastomosis following bypass of stomach: (2) Melena: 1. Continue Protonix ggt for a total of 72 hours, then can switch to Protonix 40 mg PO BID. 2. Advance diet as tolerated. 3. Avoid NSAIDs. 4. Continue supportive care. 5. Recommend outpatient follow up in our office. Supervising Physician Co-Signing Physician Notes Agree with MERNA Mackenzie Complaining of "upset stomach after eating." Did have a black stool overnight H/H improved s/p transfusion Abd: Soft, NT, ND Continue current therapy with PPI gtt x [address] Pinzon to see patient over the weekend while console attendant. Subjective Status post EGD yesterday with findings of 3 ulcers at the anastomosis one with visible vessel requiring hemostasis with Endoclip placement. She remains on PPI ggt in this regard. Patient reports feeling well today. Did pass some melanotic stool overnight. Denies any abdominal pain, n/v or hematemesis. She did receive 2 units PRBCs. H&H was noted to be 9.0/26.6 this morning. On a clear liquid diet. Review of Systems Constitutional: no fever and no chills Respiratory: no cough and no dyspnea Cardiovascular: no chest pain Gastrointestinal: as per Subjective / HPI Psychiatric: see below Physical Exam Constitutional: WD/WN, vitals as above Respiratory: normal respiratory effort, lungs clear to auscultation Cardiovascular: RRR, no murmur, no edema Gastrointestinal (Abdomen): normal bowel sounds, soft, nontender, no hepatosplenomegaly Psychiatric: A+Ox3, euthymic affect Results & Data Vital Signs (Past 12 Hours) Vital Signs Temp Pulse Resp BP BP Pulse Ox 03/04/19 07:29 36.4 C L 81 18 115/74 91 03/04/19 04:00 36.7 C 92 H 18 117/71 91 03/03/19 23:50 36.9 C 95 H 20 106/70 95 Laboratory Results Abnormal lab results 03/03/19 03/03/19 03/03/19 Range/Units 07:04 07:11 12:59 Hgb 6.5 L* (12.0-16.0) g/dL POC Hgb 7.5 L (12.0-16.0) g/dl Hct 19.4 L* (37-47) % POC Hct 22 L (37-47) % Chloride (98-107) mmol/L POC Creatinine 0.5 L (0.6-1.3) mg/dl BUN/Creatinine Ratio (10-20) Glucose (70-99) mg/dl POC Glucose (other) 157 H (70-99) mg/dl Calcium (8.5-10.1) mg/dl POC Ioniz Calcium [place] 1.10 L (1.12-1.32) mmol/l Crossmatch See Detail 03/04/19 03/04/19 Range/Units 07:17 07:17 Hgb 9.0 L (12.0-16.0) g/dL POC Hgb (12.0-16.0) g/dl Hct 26.6 L (37-47) % POC Hct (37-47) % Chloride 112 H (98-107) mmol/L POC Creatinine (0.6-1.3) mg/dl BUN/Creatinine Ratio 23.7 H (10-20) Glucose 108 H (70-99) mg/dl POC Glucose (other) (70-99) mg/dl Calcium 8.1 L (8.5-10.1) mg/dl POC Ioniz Calcium [place] (1.12-1.32) mmol/l Crossmatch PG Care Time/CCT Total # of Minutes Spent Total Time Spent with Patient: Total time spent is greater than 50% in coordination of care (as documented) at patient's floor/unit and/or counseling patient:
--- NOTE | 2019-03-04 09:50 | Hospitalist Progress Note ---
Date of Service March 04, 2019 Assessment & Plan (1) Ulcer at site of surgical anastomosis following bypass of stomach: seen on EGD on 03/03 one ulcer with visible vessel, successfully treated with epinephrine and clip no signs of active bleeding needs Protonix drip for 72 hours, this will be up Thursday morning 03/06 NO MORE NSAIDS (2) Acute GI bleeding: due to bleeding ulcers, found 3 cratered ulcers in pouch near anastamosis one ulcer with visible vessel, treated with epinephrine and clip no signs of active bleeding, had one dark stool but likely old blood can likely transfer to medical later today (3) Melena: due to bleeding ulcers one episode this AM, old blood, watch for resolution (4) Acute hypotension: resolved with NSS bolus no signs of hemorrhagic shock HR < 100 (5) Anemia: acute blood loss anemia Hb dropped to 6.5 transfused two units, up to 9.0 this morning repeat tomorrow (6) Chronic pain: continue Dilaudid 4mg PO TID with sip of water (7) H/O gastric bypass: 9 years ago (8) Neuropathy: continue Gabapentin (9) Anxiety: continue Xanax HS (10) Depression: Abilify Wellbutrin (11) Osteoarthritis: advised to not take Ibuprofen in the future Subjective patient feeling really good this morning, no abdominal pain, no dyspnea, no light headedness had a small dark stool this AM, discussed that this is likely old blood Hb is 9.0 this morning GI saw patient, she can have regular diet this morning plan for 72 hours of PPI drip which will be Thursday AM d/w RN, if she remains stable this morning will transfer to medical this afternoon no chest pain, no fever, no nausea Review of Systems Review of Systems: All systems reviewed & are unremarkable except as noted in HPI & below Constitutional: no fever Respiratory: no cough and no dyspnea Cardiovascular: no chest pain Gastrointestinal: + melena (one episode); no abdominal pain, no nausea, no vomiting, no constipation, no diarrhea/loose stools and no blood in stools Physical Exam Constitutional: WD/WN, vitals as above + overweight Eyes: PERRL, conjunctivae normal, anicteric sclerae ENMT: external ear and nose normal, oropharynx normal Neck: trachea midline, no thyromegaly Respiratory: normal respiratory effort, lungs clear to auscultation Cardiovascular: RRR, no murmur, no edema Gastrointestinal (Abdomen): normal bowel sounds, soft, nontender, no hepatosplenomegaly Percussion/Palpation: normal to percussion Musculoskeletal: no cyanosis or clubbing, extremities motor strength 5/5 Skin: no rashes, warm and dry Neurologic: patellar DTR's 2+ bilat, sensation intact and PERRL, EOMI, accommodation nl, no face palsy, no dysarthria Psychiatric: A+Ox3, euthymic affect Lymphatic: no cervical or axillary lymphadenopathy Results & Data Vital Signs (Past 12 Hours) Vital Signs Temp Pulse Resp BP BP Pulse Ox 03/04/19 07:29 36.4 C L 81 18 115/74 91 03/04/19 04:00 36.7 C 92 H 18 117/71 91 03/03/19 23:50 36.9 C 95 H 20 106/70 95 Laboratory Results Laboratory Results - last 24 hr 03/03/19 03/03/19 03/03/19 07:04 07:11 12:59 Hgb 6.5 L* POC Hgb 7.5 L Hct 19.4 L* POC Hct 22 L POC Sodium 137 Sodium POC Potassium 3.8 Potassium POC Chloride 101 Chloride Carbon Dioxide POC Total CO2 25 Anion Gap POC Anion Gap 16.0 POC BUN 18 BUN Creatinine POC Creatinine 0.5 L Est Cr Clr Drug Dosing Est GFR ( Amer) Est GFR (Non-Af Amer) BUN/Creatinine Ratio Glucose POC Glucose (other) 157 H Calcium POC Ioniz Calcium Kelsey 1.10 L Blood Type A Positive Blood Type Recheck Antibody Screen NEGATIVE Crossmatch See Detail 03/03/19 03/04/19 03/04/19 13:05 07:17 07:17 Hgb 9.0 L POC Hgb Hct 26.6 L POC Hct POC Sodium Sodium 143 POC Potassium Potassium 4.0 POC Chloride Chloride 112 H Carbon Dioxide 27 POC Total CO2 Anion Gap 5.0 POC Anion Gap POC BUN BUN 14 Creatinine 0.60 POC Creatinine Est Cr Clr Drug Dosing 105.5 Est GFR ( Amer) 113.2 Est GFR (Non-Af Amer) 97.7 BUN/Creatinine Ratio 23.7 H Glucose 108 H POC Glucose (other) Calcium 8.1 L POC Ioniz Calcium Kelsey Blood Type Blood Type Recheck A Positive Antibody Screen Crossmatch Medications Administered Current Inpatient Medications Alprazolam (Xanax) 0.5 mg PO HS PRN PRN Reason: Sleep Stop: 04/02/19 12:43 Last Admin: 03/03/19 21:25 Dose: 0.5 mg Documented by: Amphetamine/Dextroamphetamine (Adderall) 5 mg PO BID [facility] Stop: 03/17/19 12:43 Last Admin: 03/04/19 08:14 Dose: 5 mg Documented by: Amphetamine/Dextroamphetamine (Adderall) 40 mg PO BID [facility] Stop: 04/02/19 12:43 Last Admin: 03/04/19 08:13 Dose: 40 mg Documented by: Aripiprazole (Abilify) 10 mg PO DAILY [facility] Stop: 04/02/19 12:43 Last Admin: 03/04/19 08:01 Dose: 10 mg Documented by: Bupropion HCl (Wellbutrin-Sr) 450 mg PO DAILY [facility] Stop: 04/02/19 12:43 Last Admin: 03/04/19 08:01 Dose: 450 mg Documented by: Gabapentin (Neurontin) 1,800 mg PO BID [facility] Stop: 04/02/19 12:43 Last Admin: 03/04/19 08:01 Dose: 1,800 mg Documented by: Hydromorphone HCl (Dilaudid) 4 mg PO TID PRN PRN Reason: Pain Stop: 04/02/19 12:43 Last Admin: 03/04/19 08:00 Dose: 4 mg Documented by: Sodium Chloride (Nss) 250 mls @ 15 mls/hr IV .[id number] PRN PRN Reason: For Transfusion Stop: 04/02/19 13:39 Pantoprazole Sodium 40 mg/ (Dextrose) 100 mls @ 20 mls/hr IV Q5H [facility] Stop: 03/06/19 06:59 Last Admin: 03/04/19 08:14 Dose: 20 mls/hr Documented by: Ondansetron HCl (Zofran) 4 mg IV Q6H PRN PRN Reason: Nausea Stop: 04/02/19 12:43 PG Care Time/CCT Total # of Minutes Spent Total Time Spent with Patient: Total time spent is greater than 50% in coordination of care (as documented) at patient's floor/unit and/or counseling patient: (1) Anemia Anemia type: unspecified type Qualified Code(s): D64.9 - Anemia, unspecified
[2019-03-04] MEDS: SUMAtriptan succinate 100 MG TAB PO PRN (16:02)
[2019-03-04] MEDS: TRAVOPROST Z 0.004% OPH SOLN 2.5 ML BTL OPB SCH (20:47)
[2019-03-04] MEDS: ALPRAZolam 0.5 MG TABLET PO PRN (20:50)
[2019-03-05] MEDS: HYDROmorphone HCL 2 MG TAB PO PRN ×2 (01:14→17:52)
[2019-03-05] MEDS ORDERED: ALPRAZolam 0.5 MG TABLET PO STA (01:44)
[2019-03-05] MEDS: PANTOprazole 40 MG in DEXTROSE 5% 100 ML IV SCH ×5 (04:27→23:16)
[2019-03-05 05:07] LABS: Hematocrit (blood only) 28.9 % (37-47); Hemoglobin 9.6 g/dL (12.0-16.0)
[2019-03-05 05:32] LABS: BUN Creatinine Ratio 20.4 (10-20); Calcium 8.2 mg/dl (8.5-10.1); Creatinine Clr Calc Pharmacy 95.9 ml/min; Est GFR (African American) 109.7; Est GFR (Non-African American) 94.7
[2019-03-05] MEDS: BuPROPion SR 150 MG TABCR PO SCH (08:51)
[2019-03-05] MEDS: AMPHETAMINE ASP/SULF/DEXTRAMPH 20 MG TAB PO SCH ×2 (08:52→13:55)
[2019-03-05] MEDS: ARIPiprazole 10 MG TAB PO SCH (08:52)
[2019-03-05] MEDS: GABAPENTIN 600 MG TAB PO SCH ×2 (08:52→20:26)
[2019-03-05] MEDS: AMPHETAMINE ASP/SULF/DEXTRAMPH 5 MG TAB PO SCH ×2 (08:53→13:56)
[2019-03-05] MEDS: SUMAtriptan succinate 100 MG TAB PO PRN (08:53)
[2019-03-05] MEDS ORDERED: DICYCLOMINE HCL 10 MG CAP PO PRN (12:48)
--- NOTE | 2019-03-05 12:59 | Hospitalist Progress Note ---
Date of Service March 05, 2019 Assessment & Plan (1) Ulcer at site of surgical anastomosis following bypass of stomach: seen on EGD on 03/03 one ulcer with visible vessel, successfully treated with epinephrine and clip no signs of active bleeding needs Protonix drip for 72 hours, this will be up Thursday morning 03/06 NO MORE NSAIDS (2) Acute GI bleeding: due to bleeding ulcers, found 3 cratered ulcers in pouch near anastamosis one ulcer with visible vessel, treated with epinephrine and clip had a loose dark stool this morning with some cramping and diaphoresis however, Hb went up to 9.6 from 9.0 no further dark stools this AM, will repeat Hb this afternoon (3) Melena: due to bleeding ulcers appear resolved, likely passed old blood this morning (4) Acute hypotension: resolved with NSS bolus no signs of hemorrhagic shock HR < 100 (5) Anemia: acute blood loss anemia Hb dropped to 6.5 transfused two units, up to 9.6 this morning repeat later today (6) Chronic pain: continue Dilaudid 4mg PO TID with sip of water (7) H/O gastric bypass: 9 years ago (8) Neuropathy: continue Gabapentin (9) Anxiety: continue Xanax HS (10) Depression: Abilify Wellbutrin (11) Osteoarthritis: advised to not take Ibuprofen in the future Subjective patient had some loose stools that were dark this morning associated with some abdominal cramping and diaphoresis she feels a little better this morning no nausea or vomiting Hb is up slightly at 9.6 vitals stable she later requested carafate and Bentyl as that makes her feel better in the past Review of Systems Review of Systems: All systems reviewed & are unremarkable except as noted in HPI & below Gastrointestinal: + abdominal pain (cramping), + diarrhea/loose stools and + melena; no nausea, no vomiting and no constipation Physical Exam Constitutional: WD/WN, vitals as above + overweight Eyes: PERRL, conjunctivae normal, anicteric sclerae ENMT: external ear and nose normal, oropharynx normal Neck: trachea midline, no thyromegaly Respiratory: normal respiratory effort, lungs clear to auscultation Cardiovascular: RRR, no murmur, no edema Gastrointestinal (Abdomen): normal bowel sounds, soft, nontender, no hepatosplenomegaly Inspection/Auscultation: abdomen normal to inspection; abdomen not distended Percussion/Palpation: normal to percussion Musculoskeletal: no cyanosis or clubbing, extremities motor strength 5/5 Skin: no rashes, warm and dry Neurologic: patellar DTR's 2+ bilat, sensation intact and PERRL, EOMI, accommodation nl, no face palsy, no dysarthria Psychiatric: A+Ox3, euthymic affect Lymphatic: no cervical or axillary lymphadenopathy Results & Data Vital Signs (Past 12 Hours) Vital Signs Temp Pulse Resp BP Pulse Ox 03/05/19 07:20 36.6 C 89 18 113/70 94 Laboratory Results Laboratory Results - last 24 hr 03/05/19 03/05/19 04:45 04:45 Hgb 9.6 L Hct 28.9 L Sodium 142 Potassium 4.0 Chloride 107 Carbon Dioxide 28 Anion Gap 7.0 BUN 13 Creatinine 0.66 Est Cr Clr Drug Dosing 95.9 Est GFR ( Amer) 109.7 Est GFR (Non-Af Amer) 94.7 BUN/Creatinine Ratio 20.4 H Glucose 95 Calcium 8.2 L Medications Administered Current Inpatient Medications Alprazolam (Xanax) 0.5 mg PO HS PRN PRN Reason: Sleep Stop: 04/02/19 12:43 Last Admin: 03/04/19 20:50 Dose: 0.5 mg Documented by: Amphetamine/Dextroamphetamine (Adderall) 5 mg PO BID [facility] Stop: 03/17/19 12:43 Last Admin: 03/05/19 08:53 Dose: 5 mg Documented by: Amphetamine/Dextroamphetamine (Adderall) 40 mg PO BID [facility] Stop: 04/02/19 12:43 Last Admin: 03/05/19 08:52 Dose: 40 mg Documented by: Aripiprazole (Abilify) 10 mg PO DAILY [facility] Stop: 04/02/19 12:43 Last Admin: 03/05/19 08:52 Dose: 10 mg Documented by: Bupropion HCl (Wellbutrin-Sr) 450 mg PO DAILY [facility] Stop: 04/02/19 12:43 Last Admin: 03/05/19 08:51 Dose: 450 mg Documented by: Dicyclomine HCl (Bentyl) 10 mg PO Q12 PRN PRN Reason: Cramping Stop: 04/04/19 20:59 Gabapentin (Neurontin) 1,800 mg PO BID [facility] Stop: 04/02/19 12:43 Last Admin: 03/05/19 08:52 Dose: 1,800 mg Documented by: Hydromorphone HCl (Dilaudid) 4 mg PO TID PRN PRN Reason: Pain Stop: 04/02/19 12:43 Last Admin: 03/05/19 01:14 Dose: 4 mg Documented by: Sodium Chloride (Nss) 250 mls @ 15 mls/hr IV .[id number] PRN PRN Reason: For Transfusion Stop: 04/02/19 13:39 Pantoprazole Sodium 40 mg/ (Dextrose) 100 mls @ 20 mls/hr IV Q5H [facility] Stop: 03/06/19 06:59 Last Admin: 03/05/19 08:57 Dose: 20 mls/hr Documented by: Ondansetron HCl (Zofran) 4 mg IV Q6H PRN PRN Reason: Nausea Stop: 04/02/19 12:43 Last Admin: 03/04/19 13:14 Dose: 4 mg Documented by: Sucralfate (Carafate) 1 gm PO QID [facility] Stop: 04/04/19 12:59 Sumatriptan Succinate (Imitrex) 100 mg PO DAILY PRN PRN Reason: Migraine Headache Stop: 04/03/19 14:58 Last Admin: 03/05/19 08:53 Dose: 100 mg Documented by: PG Care Time/CCT Total # of Minutes Spent Total Time Spent with Patient: Total time spent is greater than 50% in c oordination of care (as documented) at patient's floor/unit and/or counseling patient: (1) Anemia Anemia type: unspecified type Qualified Code(s): D64.9 - Anemia, unspecified
[2019-03-05] MEDS: SUCRALFATE 1 GM/10 ML UDC PO SCH ×3 (13:25→20:26)
[2019-03-05 13:28] LABS: Hematocrit (blood only) 27.8 % (37-47); Hemoglobin 9.2 g/dL (12.0-16.0)
[2019-03-05] MEDS: TRAVOPROST Z 0.004% OPH SOLN 2.5 ML BTL OPB SCH (20:27)
[2019-03-06] MEDS: SUMAtriptan succinate 100 MG TAB PO PRN (00:20)
[2019-03-06] MEDS: PANTOprazole 40 MG in DEXTROSE 5% 100 ML IV SCH (04:49)
[2019-03-06 06:27] LABS: Hematocrit (blood only) 26.8 % (37-47)
[2019-03-06] MEDS: SUCRALFATE 1 GM/10 ML UDC PO SCH (08:17)
[2019-03-06] MEDS: BuPROPion SR 150 MG TABCR PO SCH (08:17)
[2019-03-06] MEDS: GABAPENTIN 600 MG TAB PO SCH (08:18)
[2019-03-06] MEDS: ARIPiprazole 10 MG TAB PO SCH (08:18)
[2019-03-06] MEDS: AMPHETAMINE ASP/SULF/DEXTRAMPH 20 MG TAB PO SCH (08:19)
[2019-03-06] MEDS: AMPHETAMINE ASP/SULF/DEXTRAMPH 5 MG TAB PO SCH (08:19)
--- NOTE | 2019-03-06 10:15 | Discharge Summary ---
Date of Service March 06, 2019 Admission HPI Per Admitting Provider 63 yo female with history of gastric bypass, Hepatitis C that has been treated, chronic pain syndrome, severe osteoarthritis with multiple joint replacements presents to the ED today with a chief complaint of dark stools for three days. She says she has a remote history of gastric ulcers. She says that she followed with GI group in the [facility], her last colonoscopy was 7 years ago and she was actually scheduled for routine screening scope tomorrow. She just moved to the [facility] in the past few weeks. Has yet to establish medical care here but is interested in transferring her care. She says that her stools have been dark, have been formed. She has had a poor appetite and has been experiencing nausea but no vomiting. She has some lower abdominal pain. She feels weak, light headed, short of breath on exertion. She did not eat this morning, last time she ate or drank was yesterday at 1pm. She denies any hematemesis, denies seeing any bright red blood per rectum. Confirmed her history of gastric bypass 9 years ago, Manolo-en-Y. She says that she has been taking Ibuprofen twice a day for the past few weeks due to arthritis pain. She does not always take the Ibuprofen with food. She denies alcohol consumption, denies taking steroids, denies smoking. In the ED her Hb is 8.4, vitals are stable. Asked to see patient for admission. Medical history: chronic pain syndrome, anxiety disorder, neuropathy, depression, severe osteoarthritis, spinal stenosis, scoliosis, degenerative disc disease, diverticular disease, h/o peptic ulcers, h/o hepatitis C that she reports is fully treated Surgical history: gastric bypass Manolo-en-Y 9 years ago, subsequent breast reduction surgery and tummy tuck, right MARTÍN, right TKA, multiple surgeries on her feet, total ankle replacement, colonoscopy, EGD Social history: non smoker, no alcohol, no drugs, retired Family history: mother from colon cancer, father from lung cancer with brain mets, he was a smoker Principal Diagnosis GI bleed due to gastric ulcers Discharge Exam Constitutional WD/WN, vitals as above + overweight Eyes PERRL, conjunctivae normal, anicteric sclerae ENMT external ear and nose normal, oropharynx normal Neck trachea midline, no thyromegaly Respiratory normal respiratory effort, lungs clear to auscultation Cardiovascular RRR, no murmur, no edema Gastrointestinal (Abdomen) normal bowel sounds, soft, nontender, no hepatosplenomegaly Inspection/Auscultation: abdomen normal to inspection; abdomen not distended Percussion/Palpation: normal to percussion Musculoskeletal no cyanosis or clubbing, extremities motor strength 5/5 Skin no rashes, warm and dry Neurologic patellar DTR's 2+ bilat, sensation intact and PERRL, EOMI, accommodation nl, no face palsy, no dysarthria Psychiatric A+Ox3, euthymic affect Lymphatic no cervical or axillary lymphadenopathy Discharge Data Allergies Allergy/AdvReac Type Severity Reaction Status Date / Time Bactrim Allergy Unknown unknown Verified 03/20/13 21:21 Cipro Allergy Unknown unknown Verified 03/20/13 21:21 ciprofloxacin Allergy Unknown unknown Verified 03/03/19 07:19 Iodinated Contrast Media Allergy Unknown Unknown Verified 03/05/19 12:54 sulfamethoxazole Allergy Unknown unknown Verified 03/03/19 07:19 trimethoprim Allergy Unknown unknown Verified 03/03/19 07:19 Consultations 03/03/19 07:41 ED Decision to Admit Stat Procedures Performed Operation Date: 03/03/19 09:30 Actual Procedures p Esophagogastroduodenoscopy - Anders Montgomery MD Hospital Course (1) Ulcer at site of surgical anastomosis following bypass of stomach: seen on EGD on 03/03 one ulcer with visible vessel, successfully treated with epinephrine and clip no signs of active bleeding received Protonix drip for 72 hours, finished morning of 03/06 change to Protonix 40mg BID for next 4 weeks then once a day follow up with [facility] in [place] few weeks NO MORE NSAIDS (2) Acute GI bleeding: due to bleeding ulcers, found 3 cratered ulcers in pouch near anastamosis one ulcer with visible vessel, treated with epinephrine and clip had a loose dark stool in morning on 03/05 with some cramping and diaphoresis however, Hb has been stable for over 48 hours, 9.0 this morning no further dark stools the past 24 hours (3) Melena: due to bleeding ulcers appear resolved, likely passed old blood morning of 03/05 (4) Acute hypotension: resolved with NSS bolus no signs of hemorrhagic shock HR < 100 (5) Anemia: acute blood loss anemia Hb dropped to 6.5 on 03/03 (day of admission) transfused two units, up to 9.0 the following morning stable for 48 hours, 9.0 the day of discharge (6) Chronic pain: continue Dilaudid 4mg PO TID with sip of water (7) H/O gastric bypass: 9 years ago (8) Neuropathy: continue Gabapentin (9) Anxiety: continue Xanax HS (10) Depression: Abilify Wellbutrin (11) Osteoarthritis: advised to avoid all NSAIDS will need to discuss alternatives with her PCP Total Time Total Time Spent Total Time Spent (In Minutes): 35 minutes Total Time Includes: Examination of the Patient, Discharge Planning and Medication Reconciliation Discharge Plan Discharge Items Patient Disposition: Home - Self-Care Reason For Visit: GI BLEED Discharge Diagnosis: GI bleed due to ulcers at anastamosis of gastric bypass Acute blood loss anemia Condition on Discharge: Good Health Concerns: avoid all NSAIDs in the future (ibuprofen, naproxen, etc) Goals: improve disease control follow up with PCP and GI Activity: Resume your previous activity Non-emergency contact: Primary Care Provider and Portfolio Assistant Call non-emergency contact if: you have any medication questions, your symptoms worsen and you have a fever Follow-up/Referrals: PCP,NO [Primary Care Provider] - Diet: Regular Addtl Attending Provider Instructions: Medications: - PROTONIX: take twice a day for 4 weeks and then once a day to help prevent ulcers - CARAFATE: finish several more days to help ulcers heal Gastric ulcers at site of gastric bypass anastamosis, with signs of bleeding, acute blood loss anemia ulcers treated with Protonix drip for 72 hours, Hb has been stable since transfusion one ulcer was injected with epinephrine and clip was placed you will continue on Protonix 40mg twice a day for 4 weeks and then daily complete several more days of carafate AVOID ALL NSAIDS IN THE FUTURE, no ibuprofen, naproxen, etc FOLLOW UP - PCP in [place] in 1-2 weeks - [facility] in a few weeks, Pending Studies at Discharge: No Stand-Alone Forms: My [facility] Medications and DC Order Prescriptions: New sucralfate [Carafate] 100 mg/mL suspension 10 ml PO QID 6 Days Qty: 240 RF: 0 pantoprazole [Protonix] 40 mg tablet,delayed release (DR/EC) 40 mg PO BID 30 Days Qty: 60 RF: 1 Continued bupropion HCl [Wellbutrin SR] 150 mg Tablet Sustained-Release 12 Hr 450 mg PO DAILY RF: 0 gabapentin 600 mg Tablet 1,800 mg PO BID RF: 0 hydrocodone-acetaminophen [[place]] 10-325 mg Tablet PO DAILY PRN (Reason: Pain) RF: 0 dextroamphetamine-amphetamine [Adderall] 30 mg Tablet 45 mg PO BID RF: 0 alprazolam [Xanax] 0.5 mg Tablet 0.5 mg PO HS PRN (Reason: Sleep) RF: 0 amlodipine [Norvasc] 10 mg Tablet 10 mg PO DAILY RF: 0 hydromorphone [Dilaudid] 4 mg Tablet 4 mg PO TID PRN (Reason: Pain) RF: 0 aripiprazole [Abilify] 10 mg Tablet 10 mg PO DAILY RF: 0 Discharge Orders: Discharge Order (Routine); Ordered 03/06/19 Ordered By: Compa Shea Admission Data Admit Date/Time: 03/03/19 07:43 Attending Provider: Compa Shea Admit Provider: Compa Shea Primary Care Provider: PCP,NO Other Providers: Compa Shea Other Interventions: Discharge Summary Assessment (RN) Last Done: 03/06/19 09:44
[2019-03-06] MEDS ORDERED: ONDANSETRON 4 MG OD TAB PO STA (10:16)
== END 2019-03-06 12:41 | disposition home or self-care (01) | DRG 378 ==
LOC: ED 06:52 → 1E 07:43 → 2S 17:20 → 4W 03-04 09:50

== ENCOUNTER 2020-03-04 08:30 | Observation (INO) ==
[2020-03-04] MEDS ORDERED: PANTOprazole 80 MG in DEXTROSE 5% 100 ML IV ONE (08:45)
[2020-03-04] MEDS ORDERED: SODIUM CHLORIDE 0.9% 1000ML 1,000 ML IV SCH (08:45)
[2020-03-04] MEDS ORDERED: PANTOprazole 40 MG in SYRINGE 0 ML IV ONE (08:45)
[2020-03-04 09:01] LABS: Basophils # (auto) 0.04 K/uL (0-0.2); Basophils % (auto) 0.8 %; Eosinophils # (auto) 0.22 K/uL (0-0.5); Eosinophils % (auto) 4.4 %; Hematocrit (blood only) 34.4 % (37-47); Hemoglobin 11.3 g/dL (12.0-16.0); Lymphocytes # (auto) 1.85 K/uL (1.2-3.4); Lymphocytes % (auto) 36.9 %; Mean Corpuscular Hemoglobin 27.4 pg (25-34); Mean Corpuscular Hgb Conc 32.8 g/dL (32-36); Mean Corpuscular Volume 83.3 fL (80-100); Mean Platelet Volume 9.1 fL (7.4-10.4); Monocytes # (auto) 0.38 K/uL (0.11-0.59); Monocytes % (auto) 7.6 %; Neutrophils # (auto) 2.53 K/uL (1.4-6.5); Neutrophils % (auto) 50.3 %; Platelet Count 290 K/uL (130-400); RDW Coefficient of Variation 14.6 % (11.5-14.5); RDW Standard Deviation 44.8 fL (36.4-46.3); Red Blood Count 4.13 M/uL (4.2-5.4); White Blood Count 5.02 K/uL (4.8-10.8)
[2020-03-04 09:11] LABS: Partial Thromboplastin Time 27.6 Seconds (21.0-31.0); Prothrombin Time 10.6 Seconds (9.0-12.0)
[2020-03-04 09:17] LABS: Alanine Aminotransferase 21 U/L (12-78); Aspartate Aminotransferase 16 U/L (15-37); BUN Creatinine Ratio 40.1 (10-20); Blood Urea Nitrogen 25 mg/dl (7-18); Carbon Dioxide 29 mmol/L (21-32); Chloride 107 mmol/L (98-107); Creatinine Clr Calc Pharmacy 98.4 ml/min; Est GFR (African American) 110.6; Est GFR (Non-African American) 95.5; Glucose 132 mg/dl (70-99); Potassium 4.5 mmol/L (3.5-5.1); Sodium 140 mmol/L (136-145)
[2020-03-04 09:21] LABS: Albumin Globulin Ratio 0.9 (0.9-2); Alkaline Phosphatase 80 U/L (45-117); Bilirubin,Total 0.5 mg/dl (0.2-1); Globulin 3.4 gm/dl (2.5-4.0); Total Protein 6.4 gm/dl (6.4-8.2); Troponin I < 0.015 ng/ml (0-0.045)
[2020-03-04] MEDS: PANTOprazole 40 MG in DEXTROSE 5% 100 ML IV SCH ×2 (09:45→15:24)
--- NOTE | 2020-03-04 09:56 | Electrocardiogram Report ---
Test Reason : Blood Pressure : / mmHG Vent. Rate : 089 BPM Atrial Rate : 089 BPM P-R Int : 162 ms QRS Dur : 080 ms QT Int : 364 ms P-R-T Axes : 041 -19 049 degrees QTc Int : 442 ms Poor data quality, interpretation may be adversely affected Normal sinus rhythm Poor R wave progression, consider anterior VT vs. lead placement vs. LVH Abnormal ECG When compared with ECG of 03-MAR-2019 06:56, Minimal criteria for Anterior infarct are now Present Confirmed by Vic Crain ([id number]) on 03/04/2020 9:56:15 AM Referred By: REFERRED SELF Confirmed By:Prashant Crain
[2020-03-04] MEDS ORDERED: ONDANSETRON INJ 2 MG/ML 2 ML VIAL IV STA (12:19)
[2020-03-04] MEDS ORDERED: SODIUM CHLORIDE 0.9% 1000ML 1,000 ML IV ONE (12:19)
[2020-03-04] MEDS ORDERED: SODIUM CHLORIDE 0.9% 250 ML IV PRN ×2 (12:47→15:00)
[2020-03-04 12:48] LABS: iSTAT Creatinine 0.4 mg/dl (0.6-1.3); iSTAT Hemoglobin 7.8 g/dl (12.0-16.0); iSTAT Ionized Calcium 1.15 mmol/l (1.12-1.32); iSTAT Potassium 4.4 mmol/L (3.3-5.0)
--- NOTE | 2020-03-04 13:21 | Emergency Department Note ---
History of Present Illness General Chief complaint: GI Assessment Time Seen by Provider: 03/04/20 08:38 Source: patient Mode of arrival: ambulatory Limitations: no limitations History of Present Illness HPI Narrative: This is a 64-year-old female who presents to the ED with a chief complaint of rectal bleeding. The patient states that her symptoms started at 8:30 PM last night. She states that she has had 3 episodes of dark red bleeding from the rectum since 8:30 PM. She states that she has a history of gastric bypass with a anastomosis ulcer with previous bleeding from the area at least twice in the past. She has seen Dr. Montgomery for this. The patient has required intervention for this by Dr. Montgomery. She has a little shortness of breath and a little lightheadedness. The patient denies any other complaints at this time. Home Medications Home Medications Medication Instructions Recorded Confirmed Type gabapentin See Rx Instructions .ROUTE .COMPLEX 03/03/19 03/04/20 History bupropion HCl 150 mg tablet,12 hr 450 mg PO QAM ea 08/02/19 03/04/20 History sustained-release hydrocodone bitartrate 30 mg PO QAM 12/07/19 03/04/20 History hydromorphone 4 mg PO BID PRN 12/07/19 03/04/20 History Brain Power ~ Dr Stewart 2 tab PO BID 03/04/20 03/04/20 History Cholacol 1 tab PO TIDM 03/04/20 03/04/20 History Focus Energy ~ Dr Stewart 2 tab PO BID 03/04/20 03/04/20 History amlodipine 10 mg PO QAM 03/04/20 03/04/20 History aripiprazole 5 mg PO HS 03/04/20 03/04/20 History ascorbic acid (vitamin C) [Vitamin 3,000 mg PO TID 03/04/20 03/04/20 History C] dextroamphetamine-amphetamine 30 mg PO BID 03/04/20 03/04/20 History digestive enzymes 1 cap PO TIDM 03/04/20 03/04/20 History epinephrine 0.3 mg SUBCUT UD 03/04/20 03/04/20 History lorazepam 1.5 mg PO HS PRN 03/04/20 03/04/20 History magnesium oxide 800 mg PO HS 03/04/20 03/04/20 History melatonin 20 mg PO HS 03/04/20 03/04/20 History metoclopramide HCl [Reglan] 10 mg PO AC 03/04/20 03/04/20 History omega 3-chc-wwb-fish oil [Fish Oil] 1 cap PO BID 03/04/20 03/04/20 History sumatriptan succinate 4 mg SUBCUT UD PRN 03/04/20 03/04/20 History Allergies Allergy/AdvReac Type Severity Reaction Status Date / Time Bactrim Allergy Unknown unknown Verified 03/20/13 21:21 sulfamethoxazole Allergy Unknown at age 20, Verified 03/04/20 09:16 can not remember what happened trimethoprim Allergy Unknown at age 20, Verified 03/04/20 09:16 can not remember what happened Past Med/Surg History Medical History Anemia Anxiety Attention deficit disorder (ADD) Bulging discs Chronic pain Depression GI bleed hx of Glaucoma Hepatitis C hx - treated History of anesthesia reaction hx of waking up during procedures Hypertension Medical marijuana use Migraine Neuropathy Osteoarthritis Scoliosis Spinal stenosis Surgical History History of appendectomy History of bilateral breast reduction surgery History of bilateral cataract extraction History of bilateral tubal ligation History of cardiac cath 2005 [facility]---"fistula in heart between 2 valves"--no stents History of cholecystectomy History of colonoscopy History of esophagogastroduodenoscopy (EGD) History of eye surgery right---scar tissue from cataract sx History of fusion of cervical spine C4-C5--normal ROM History of lung biopsy right side--benign History of mandibular surgery 1978--wired shut History of open reduction and internal fixation (ORIF) procedure right ankle--hardware in place History of partial hysterectomy History of right shoulder replacement History of Manolo-en-Y gastric bypass History of tooth extraction History of total left knee replacement (TKR) x2 History of total right hip replacement History of wisdom tooth extraction Status post left foot surgery x7-hardware in place Status post right foot surgery x7--hardware in place Family History Mother Colorectal cancer Father Lung cancer Family history of esophageal cancer Brother Family history of esophageal cancer Grandfather (Maternal) Family history of esophageal cancer Other No family history of adverse response to anesthesia Social History Smoking Status: Never smoker Second Hand Exposure: Yes (parents smoked); Hx Alcohol Use: No Hx Substance Use: Yes (medical marijuana card) Last Used Substance: Days (ago) Last Used Substance Other:: uses daily for sleep Preferred Language: Faroese Communication Ability: Effective Non Destructive Testing Supervisor Required: No Beliefs That Will Affect Care: None Current Living Situation: Family Current Living Situation Comment: Lives with brother Feels Safe at Home: Yes Assistive Devices: None Review of Systems A total of 10 systems reviewed and were otherwise negative Physical Exam Vital Signs: Vital Signs - 24 hr 03/04/20 08:32 03/04/20 08:36 03/04/20 08:40 Temperature 36.7 C Temperature Source Oral Pulse Rate 91 H 95 H 92 H Pulse Rate from Sp O2 Sensor 91 H 92 H Respiratory Rate 14 18 20 Blood Pressure 136/75 136/75 Blood Pressure Lani n 83 95 Pulse Oximetry 94 96 96 Oxygen Delivery Me thod Room Air Sepsis Recent Feve r Within 48 Hours No Sepsis New/Unexpla ined Change in Men floyd Status No Sepsis Action Take n by Nursing No Action Required 03/04/20 08:56 03/04/20 09:27 03/04/20 09:28 Temperature Temperature Source Pulse Rate 98 H 94 H Pulse Rate from Sp O2 Sensor Respiratory Rate 16 16 Blood Pressure 111/70 Blood Pressure Lani n 93 Pulse Oximetry 96 Oxygen Delivery Me thod Room Air Sepsis Recent Feve r Within 48 Hours Sepsis New/Unexpla ined Change in Men floyd Status Sepsis Action Take n by Nursing 03/04/20 09:30 03/04/20 10:00 03/04/20 10:01 Temperature Temperature Source Pulse Rate 97 H 86 91 H Pulse Rate from Sp O2 Sensor Respiratory Rate 22 16 17 Blood Pressure 119/75 118/70 Blood Pressure Lani n 88 75 Pulse Oximetry Oxygen Delivery Me thod Sepsis Recent Feve r Within 48 Hours Sepsis New/Unexpla ined Change in Men floyd Status Sepsis Action Take n by Nursing 03/04/20 10:30 03/04/20 10:31 03/04/20 11:00 Temperature Temperature Source Pulse Rate 81 82 88 Pulse Rate from Sp O2 Sensor Respiratory Rate 15 18 26 H Blood Pressure 121/68 119/72 Blood Pressure Lani n 74 88 Pulse Oximetry Oxygen Delivery Me thod Sepsis Recent Feve r Within 48 Hours Sepsis New/Unexpla ined Change in Men floyd Status Sepsis Action Take n by Nursing 03/04/20 11:30 03/04/20 11:48 03/04/20 12:00 Temperature Temperature Source Pulse Rate 82 82 77 Pulse Rate from Sp O2 Sensor Respiratory Rate 17 16 15 Blood Pressure 93/58 L 92/55 L Blood Pressure Lani n 71 66 Pulse Oximetry Oxygen Delivery Me thod Sepsis Recent Feve r Within 48 Hours Sepsis New/Unexpla ined Change in Men floyd Status Sepsis Action Take n by Nursing 03/04/20 12:18 03/04/20 12:30 03/04/20 12:32 Temperature Temperature Source Pulse Rate 84 78 78 Pulse Rate from Sp O2 Sensor 83 79 79 Respiratory Rate 14 16 15 Blood Pressure 72/55 L 99/63 L Blood Pressure Lani n 59 73 Pulse Oximetry 93 93 93 Oxygen Delivery Me thod Sepsis Recent Feve r Within 48 Hours Sepsis New/Unexpla ined Change in Men floyd Status Sepsis Action Take n by Nursing Physical Exam: CONSTITUTIONAL/VITAL SIGNS: Reviewed / noted above. GENERAL: Non-toxic in appearance. INTEGUMENTARY: Warm, dry, and [place]. HEAD: Normocephalic. EYES: without scleral icterus or trauma. ENT/OROPHARYNX: clear and moist. LYMPHADENOPATHY/NECK: Is supple without lymphadenopathy or meningismus. RESPIRATORY: Lungs clear and equal. CARDIOVASCULAR: Regular rate and rhythm. GI/ABDOMEN: Soft and nontender. No organomegaly or pulsatile mass. No rebound or guarding. Normal bowel sounds. EXTREMITIES: Warm and well perfused. BACK: No CVA tenderness. NEUROLOGICAL: Intact without focal deficits. PSYCHIATRIC: normal affect. MUSCULOSKELETAL: Normally developed with good muscle tone. TRIAGE NURSING DOCUMENTATION REVIEWED. Course Administered Medications Pantoprazole Sodium 40 mg/ (Dextrose) 100 mls @ 20 mls/hr IV Q5H TON Stop: 04/03/20 09:29 Last Admin: 03/04/20 09:45 Dose: 8 mg/hr, 20 mls/hr Documented by: [id number] Sodium Chloride (Nss 1000ml) 1,000 mls @ 999 mls/hr IV .Q1H1M ONE Stop: 03/04/20 13:19 Last Admin: 03/04/20 12:39 Dose: 999 mls/hr Documented by: [id number] Discontinued Medications Sodium Chloride (Nss 1000ml) 1,000 mls @ 999 mls/hr IV .Q1H1M TON Stop: 03/04/20 09:45 Last Infusion: 03/04/20 10:45 Dose: 0 mls/hr Documented by: [id number] Admin: 03/04/20 09:45 Dose: 999 mls/hr Documented by: [id number] Pantoprazole Sodium 80 mg/ (Dextrose) 100 mls @ 400 mls/hr IV NOW ONE Stop: 03/04/20 08:59 Last Infusion: 03/04/20 10:00 Dose: 0 mls/hr Documented by: [id number] Admin: 03/04/20 09:45 Dose: 400 mls/hr Documented by: [id number] Ondansetron HCl (Ondansetron Inj 2 Mg/Ml 2 Ml Vial) 4 mg IV NOW STA Stop: 03/04/20 12:20 Last Admin: 03/04/20 12:39 Dose: 4 mg Documented by: [id number] Medical Decision Making Differential Diagnosis + hemorrhoids, + gastritis, + Ashley-Orta syndrome, + Upper gastrointestinal hemorrhage, + Lower gastrointestinal hemorrhage, + hematochezia, + melena, + coagulopathy, + malignancy and + variceal bleed Medical Records Attestation: I reviewed the patient's medical records. Home Medications Current Medication List: was personally reviewed by me Laboratory Data Attestation: I reviewed the patient's lab results. Result diagrams: 03/04/20 08:49 03/04/20 08:49 Lab Results 03/04/20 03/04/20 03/04/20 Range/Units 08:49 08:49 08:49 WBC 5.02 (4.8-10.8) K/uL RBC 4.13 L (4.2-5.4) M/uL Hgb 11.3 L (12.0-16.0) g/dL POC Hgb (12.0-16.0) g/dl Hct 34.4 L (37-47) % POC Hct (37-47) % MCV 83.3 (80-100) fL MCH 27.4 (25-34) pg MCHC 32.8 (32-36) g/dL RDW Std Deviation 44.8 (36.4-46.3) fL RDW Coeff of Faizan 14.6 H (11.5-14.5) % Plt Count 290 (130-400) K/uL MPV 9.1 (7.4-10.4) fL Immature Gran % (Auto) 0.0 % Neut % (Auto) 50.3 % Lymph % (Auto) 36.9 % [place] % (Auto) 7.6 % Eos % (Auto) 4.4 % Baso % (Auto) 0.8 % Neut # (Auto) 2.53 (1.4-6.5) K/uL Lymph # (Auto) 1.85 (1.2-3.4) K/uL [place] # (Auto) 0.38 (0.11-0.59) K/uL Eos # (Auto) 0.22 (0-0.5) K/uL Baso # (Auto) 0.04 (0-0.2) K/uL Immature Gran # (Auto) 0.00 (0.00-0.02) K/uL PT 10.6 (9.0-12.0) Seconds INR 1.0 (0.9-1.1) APTT 27.6 (21.0-31.0) Seconds PTT Ratio 1.0 POC Sodium (135-144) mmol/L Sodium (136-145) mmol/L POC Potassium (3.3-5.0) mmol/L Potassium (3.5-5.1) mmol/L POC Chloride (101-112) mmol/L Chloride (98-107) mmol/L Carbon Dioxide (21-32) mmol/L POC Total CO2 (24-31) mmol/L Anion Gap (3-11) POC Anion Gap (16-25) mmol/L POC BUN (7-18) mg/dl BUN (7-18) mg/dl Creatinine (0.6-1.2) mg/dl POC Creatinine (0.6-1.3) mg/dl Est Cr Clr Drug Dosing ml/min Est GFR ( Amer) Est GFR (Non-Af Amer) BUN/Creatinine Ratio (10-20) Glucose (70-99) mg/dl POC Glucose (other) (70-99) mg/dl Calcium (8.5-10.1) mg/dl POC Ioniz Calcium Kelsey (1.12-1.32) mmol/l Total Bilirubin (0.2-1) mg/dl AST (15-37) U/L ALT (12-78) U/L Alkaline Phosphatase (45-117) U/L Troponin I (0-0.045) ng/ml Total Protein (6.4-8.2) gm/dl Albumin (3.4-5.0) gm/dl Globulin (2.5-4.0) gm/dl Albumin/Globulin Ratio (0.9-2) Blood Type A Positive Antibody Screen POSITIVE A Antibody Identification Anti-E Antigen Identification E Antigen - NEGATIVE Crossmatch See Detail 03/04/20 03/04/20 Range/Units 08:49 12:35 WBC (4.8-10.8) K/uL RBC (4.2-5.4) M/uL Hgb (12.0-16.0) g/dL POC Hgb 7.8 L (12.0-16.0) g/dl Hct (37-47) % POC Hct 23 L (37-47) % MCV (80-100) fL MCH (25-34) pg MCHC (32-36) g/dL RDW Std Deviation (36.4-46.3) fL RDW Coeff of Faizan (11.5-14.5) % Plt Count (130-400) K/uL MPV (7.4-10.4) fL Immature Gran % (Auto) % Neut % (Auto) % Lymph % (Auto) % [place] % (Auto) % Eos % (Auto) % Baso % (Auto) % Neut # (Auto) (1.4-6.5) K/uL Lymph # (Auto) (1.2-3.4) K/uL [place] # (Auto) (0.11-0.59) K/uL Eos # (Auto) (0-0.5) K/uL Baso # (Auto) (0-0.2) K/uL Immature Gran # (Auto) (0.00-0.02) K/uL PT (9.0-12.0) Seconds INR (0.9-1.1) APTT (21.0-31.0) Seconds PTT Ratio POC Sodium 139 (135-144) mmol/L Sodium 140 (136-145) mmol/L POC Potassium 4.4 (3.3-5.0) mmol/L Potassium 4.5 (3.5-5.1) mmol/L POC Chloride 104 (101-112) mmol/L Chloride 107 (98-107) mmol/L Carbon Dioxide 29 (21-32) mmol/L POC Total CO2 25 (24-31) mmol/L Anion Gap 4.0 (3-11) POC Anion Gap 15.0 L (16-25) mmol/L POC BUN 23 H (7-18) mg/dl BUN 25 H (7-18) mg/dl Creatinine 0.63 (0.6-1.2) mg/dl POC Creatinine 0.4 L (0.6-1.3) mg/dl Est Cr Clr Drug Dosing 98.4 ml/min Est GFR ( Amer) 110.6 Est GFR (Non-Af Amer) 95.5 BUN/Creatinine Ratio 40.1 H (10-20) Glucose 132 H (70-99) mg/dl POC Glucose (other) 144 H (70-99) mg/dl Calcium 9.0 (8.5-10.1) mg/dl POC Ioniz Calcium Kelsey 1.15 (1.12-1.32) mmol/l Total Bilirubin 0.5 (0.2-1) mg/dl AST 16 (15-37) U/L ALT 21 (12-78) U/L Alkaline Phosphatase 80 (45-117) U/L Troponin I < 0.015 (0-0.045) ng/ml Total Protein 6.4 (6.4-8.2) gm/dl Albumin 3.0 L (3.4-5.0) gm/dl Globulin 3.4 (2.5-4.0) gm/dl Albumin/Globulin Ratio 0.9 (0.9-2) Blood Type Antibody Screen Antibody Identification Antigen Identification Crossmatch MDM Narrative The patient presents to the ED as above with history of upper GI bleeding related to an ulcer from her gastric bypass. The patient has had problems with this in the past and required transfusion and intervention. The patient states that she had 3 bloody bowel movement since last night. Her initial hemoglobin today was 11.3 and her BUN was 25. During the patient's ED stay, she became hypotensive with blood pressures in the 70 systolic range. A repeat hemoglobin 4 hours later shows a hemoglobin of 7.8 the patient was typed and crossed for 2 units of blood. Consent was signed. The blood was ordered for ministration in the emergency department. 2 IVs were established. The patient was seen by the hospitalist for further inpatient evaluation and care. She initially received 1000 cc of normal saline. A second liter bolus was provided after the h ypotension. She was also placed on Protonix IV bolus and drip. She was given IV Zofran. Impression & Plan Acute GI bleeding Critical Care Time Critical Care Time: Yes Total Critical Care Time: 40 I have personally spent 40 minutes of critical care time in the direct management of this patient. This includes bedside care, interpretation of diagnostic studies, and testing, discussion with consultants, patient, and family members, and other required patient management activities. This 40 minutes is in excess of all separately billable procedures. Discharge Plan Visit Data Chief Complaint: GI Assessment ED Provider: Killian Cortez Discharge Problem: Acute GI bleeding Patient Disposition: Being Evaluated by Hospitalist Forms Stand Alone Forms: My [facility] Prescriptions Prescriptions: No Action digestive enzymes Capsule 1 cap PO TIDM RF: 0 ascorbic acid (vitamin C) [Vitamin C] 1,000 mg Tablet 3,000 mg PO TID RF: 0 dextroamphetamine-amphetamine 30 mg tablet 30 mg PO BID RF: 0 magnesium oxide 400 mg (241.3 mg magnesium) Tablet 800 mg PO HS RF: 0 amlodipine 10 mg tablet 10 mg PO QAM RF: 0 lorazepam 1 mg tablet 1.5 mg PO HS PRN (Reason: .) RF: 0 epinephrine 0.3 mg/0.3 mL auto-injector 0.3 mg subcut UD RF: 0 metoclopramide HCl [Reglan] 10 mg Tablet 10 mg PO AC RF: 0 aripiprazole 5 mg tablet 5 mg PO HS RF: 0 sumatriptan succinate 4 mg/0.5 mL pen injector 4 mg SUBCUT UD PRN (Reason: Migraine Headache) RF: 0 omega 5-efp-psn-fish oil [Fish Oil] 1,000 mg (120 mg-180 mg) Capsule 1 cap PO BID RF: 0 melatonin 10 mg Tablet 20 mg PO HS RF: 0 Brain Power ~ Dr Amen 2 tab PO BID RF: 0 Cholacol 1 tab PO TIDM RF: 0 Focus Energy ~ Dr Amen 2 tab PO BID RF: 0 gabapentin 600 mg Tablet See Rx Instructions .ROUTE .COMPLEX RF: 0 bupropion HCl [Wellbutrin SR] 150 mg tablet sustained-release 12 hr 450 mg PO QAM RF: 0 hydromorphone 4 mg Tablet 4 mg PO BID PRN (Reason: Pain) RF: 0 hydrocodone bitartrate 30 mg Tablet,Oral Only,Ext.Rel.24 Hr 30 mg PO QAM RF: 0 Referrals Referrals: Sergio Peacock MD [Primary Care Provider] -
--- NOTE | 2020-03-04 13:22 | History & Physical Report ---
Date of Service March 04, 2020 Assessment & Plan (1) Acute GI bleedinyo C female with history of Manolo-en-Y gastric bypass surgery ?15 years ago, gastritis, prior UGIB secondary to ulcers at the anastamosis presenting with melena/symptomatic anemia/hypotension concerning for UGIB. Patient has been seen by GI in the past, most recently by Dr. Montgomery on 12/22/19. Last EGD on 12/13/19 with normal esophagus and gastritis present Last Colonoscopy on 07/05/19 with one 10mm polyp s/p resection otherwise normal -Admit to MICU -NPO -Maintain 2 large bore PIVs -Transfuse 2u PRBCs when blood becomes available. Patient has antibodies - spoke with blood bank who is in the process of identifying antibodies -Monitor CBC q 6 hours, transfuse for active bleed, symptomatic anemia, Hgb <7 -Protonix gtt -Zofran PRN -GI consult appreciated - [facility] -Patient should avoid ASA in the future given history of Gastritis and ulcers Present on Admission?: Yes (2) Acute hypotension: Patient with episode of hypotension, pre-syncope following a bloody BM in the ER. BP has improved with IVF -Transfusion of blood products as above -Normosol 125mL/hr x 1L Present on Admission?: Yes (3) Depression: Chronic. -Continue Bupropion 450mg po qAM -Continue [id number] po qHS Present on Admission?: Yes (4) Anxiety: Chronic -Holding PRN Lorazepam HS dosing -Continue to monitor Present on Admission?: Yes (5) Hypertension: Acute hypotension as above in setting of GIB -Hold Amlodipine -Continue to monitor Present on Admission?: Yes (6) Chronic pain: Patient feels well currently -Continue Hydrocodone 30mg po qAM -Continue Gabapentin -Holding PRN hydrmorphone -Continue to monitor and adjust treatment as needed F/E/N - Normosol 125mL/hr x 1L, transfusion as above, electrolytes WNL, NPO PPx - low risk for dvt, SCDs Code - Full Dispo - Admit to MICU Present on Admission?: Yes History of Present Illness Chief Complaint: UGIB Primary Care Provider: Sergio Peacock MD Milagros Mcgraw is a 64yo C female with history of Manolo-en-Y gastric bypass s urgery, gastritis, HTN. Patient has had 4 prior episodes of UGIB, most recently was March 2019. Yesterday AM she began having bloody bowel movements, 5 episodes of dark maroon stools. She has mild lower abdominal pain as well as nausea. +dizziness +presyncope +chills. No epigastric pain. No hematemesis. Patient does not drink EtOH. She does take ASA for migraine headache - approximately 500mg every other day. Denies vomiting/CP/SOB/fevers/chills. Patient had Coronavirus on November 10 and states she now has antibodies. No concern for additional exposure. Upon arrival to the ER patient afebrile, HD stable. HR =91, WO=598/75. Initial H/H found to be 11.3/34.4. Patient had a bloody BM in the ER with feeling of dizziness and pre-syncope. Her blood pressure dropped to 72/55 at that time. IStat Hgt/Hct performed at that time found to be 7.8/23 ER Course: Zofran 4mg IV, Protonix bolus and gtt, NSS x 2L Allergies Allergy/AdvReac Type Severity Reaction Status Date / Time Bactrim Allergy Unknown unknown Verified 03/20/13 21:21 sulfamethoxazole Allergy Unknown at age 20, Verified 03/04/20 09:16 can not remember what happened trimethoprim Allergy Unknown at age 20, Verified 03/04/20 09:16 can not remember what happened Home Medications Home Medications Medication Instructions Recorded Confirmed Type gabapentin See Rx Instructions .ROUTE .COMPLEX 03/03/19 03/04/20 History bupropion HCl 150 mg tablet,12 hr 450 mg PO QAM ea 08/02/19 03/04/20 History sustained-release hydrocodone bitartrate 30 mg PO QAM 12/07/19 03/04/20 History hydromorphone 4 mg PO BID PRN 12/07/19 03/04/20 History [employer] ~ Dr Stewart 2 tab PO BID 03/04/20 03/04/20 History Cholacol 1 tab PO TIDM 03/04/20 03/04/20 History [employer] ~ Dr Stewart 2 tab PO BID 03/04/20 03/04/20 History amlodipine 10 mg PO QAM 03/04/20 03/04/20 History aripiprazole 5 mg PO HS 03/04/20 03/04/20 History ascorbic acid (vitamin C) [Vitamin 3,000 mg PO TID 03/04/20 03/04/20 History C] dextroamphetamine-amphetamine 30 mg PO BID 03/04/20 03/04/20 History digestive enzymes 1 cap PO TIDM 03/04/20 03/04/20 History epinephrine 0.3 mg SUBCUT UD 03/04/20 03/04/20 History lorazepam 1.5 mg PO HS PRN 03/04/20 03/04/20 History magnesium oxide 800 mg PO HS 03/04/20 03/04/20 History melatonin 20 mg PO HS 03/04/20 03/04/20 History metoclopramide HCl [Reglan] 10 mg PO AC 03/04/20 03/04/20 History omega 8-[id number]-zmw-fish oil [Fish Oil] 1 cap PO BID 03/04/20 03/04/20 History sumatriptan succinate 4 mg SUBCUT UD PRN 03/04/20 03/04/20 History Past Med/Surg History Medical History Anemia Anxiety Attention deficit disorder (ADD) Bulging discs Chronic pain Depression GI bleed hx of Glaucoma Hepatitis C hx - treated History of anesthesia reaction hx of waking up during procedures Hypertension Medical marijuana use Migraine Neuropathy Osteoarthritis Scoliosis Spinal stenosis Surgical History History of appendectomy History of bilateral breast reduction surgery History of bilateral cataract extraction History of bilateral tubal ligation History of cardiac cath 2005 [facility]---"fistula in heart between 2 valves"--no stents History of cholecystectomy History of colonoscopy History of esophagogastroduodenoscopy (EGD) History of eye surgery right---scar tissue from cataract sx History of fusion of cervical spine C4-C5--normal ROM History of lung biopsy right side--benign History of mandibular surgery 1978--wired shut History of open reduction and internal fixation (ORIF) procedure right ankle--hardware in place History of partial hysterectomy History of right shoulder replacement History of Manolo-en-Y gastric bypass History of tooth extraction History of total left knee replacement (TKR) x2 History of total right hip replacement History of wisdom tooth extraction Status post left foot surgery x7-hardware in place Status post right foot surgery x7--hardware in place Family History Mother Colorectal cancer Father Lung cancer Family history of esophageal cancer Brother Family history of esophageal cancer Grandfather (Maternal) Family history of esophageal cancer Other No family history of adverse response to anesthesia Social History Smoking Status: Never smoker Second Hand Exposure: Yes (parents smoked); Hx Alcohol Use: No Hx Substance Use: Yes (medical marijuana card) Last Used Substance: Days (ago) Last Used Substance Other:: uses daily for sleep Preferred Language: Hungarian Communication Ability: Effective Low Raw Sugar Cutter Required: No Beliefs That Will Affect Care: None Current Living Situation: Family Current Living Situation Comment: Lives with brother Feels Safe at Home: Yes Assistive Devices: None Review of Systems Review of Systems: All systems reviewed & are unremarkable except as noted in HPI & below Physical Exam Physical Exam: General: patient resting comfortably, NAD, ill in appearance, AA&O x 4 Skin: warm, dry, intact, no rashes or lesions, patient appears pale HEENT: NC/AT, PERRL, EOMI, anicteric sclera, conjunctiva without injection, external ear normal to inspection and nontender, nares patent, moist mucus membranes, dentition intact, no oropharyngeal lesions, neck supple, trachea midline, no LAD, no thyromegaly, no JVD Heart: +S1/S2, regular, no m/r/g Lungs: equal air entry bilaterally, no rales/rhonchi/wheezes Abd: +BS, soft, ND, tender in the lower abdomen with deep palpation, voluntary guarding, no epigastric pain, no masses/organomegaly/ascites Ext: warm, 2+ pulses in UE/LE bilaterally, no clubbing/cyanosis or edema Neuro: nonfocal, patient AA&O x 4, speech intact, no facial droop, moving all extremities on command with equal strength 5/5 Results & Data Results & Data ([facility]) Vital Signs (Past 12 Hours) Vital Signs Temp Pulse Resp BP Pulse Ox 03/04/20 13:01 82 21 95 03/04/20 13:00 83 108/68 93 03/04/20 12:33 82 19 94 03/04/20 12:32 78 15 99/63 L 93 03/04/20 12:30 78 16 93 03/04/20 12:18 84 14 72/55 L 93 03/04/20 12:00 77 15 92/55 L 03/04/20 11:48 82 16 93/58 L 03/04/20 11:30 82 17 03/04/20 11:00 88 26 H 119/72 03/04/20 10:31 82 18 03/04/20 10:30 81 15 121/68 03/04/20 10:01 91 H 17 03/04/20 10:00 86 16 118/70 03/04/20 09:30 97 H 22 119/75 03/04/20 09:28 94 H 16 03/04/20 09:27 98 H 16 111/70 03/04/20 08:56 96 03/04/20 08:40 92 H 20 96 03/04/20 08:36 36.7 C 95 H 18 136/75 96 03/04/20 08:32 91 H 14 136/75 94 Laboratory Results Lab Results 03/04/20 03/04/20 03/04/20 Range/Units 08:49 08:49 08:49 WBC 5.02 (4.8-10.8) K/uL RBC 4.13 L (4.2-5.4) M/uL Hgb 11.3 L (12.0-16.0) g/dL POC Hgb (12.0-16.0) g/dl Hct 34.4 L (37-47) % POC Hct (37-47) % MCV 83.3 (80-100) fL MCH 27.4 (25-34) pg MCHC 32.8 (32-36) g/dL RDW Std Deviation 44.8 (36.4-46.3) fL RDW Coeff of Faizan 14.6 H (11.5-14.5) % Plt Count 290 (130-400) K/uL MPV 9.1 (7.4-10.4) fL Immature Gran % (Auto) 0.0 % Neut % (Auto) 50.3 % Lymph % (Auto) 36.9 % [place] % (Auto) 7.6 % Eos % (Auto) 4.4 % Baso % (Auto) 0.8 % Neut # (Auto) 2.53 (1.4-6.5) K/uL Lymph # (Auto) 1.85 (1.2-3.4) K/uL [place] # (Auto) 0.38 (0.11-0.59) K/uL Eos # (Auto) 0.22 (0-0.5) K/uL Baso # (Auto) 0.04 (0-0.2) K/uL Immature Gran # (Auto) 0.00 (0.00-0.02) K/uL PT 10.6 (9.0-12.0) Seconds INR 1.0 (0.9-1.1) APTT 27.6 (21.0-31.0) Seconds PTT Ratio 1.0 POC Sodium (135-144) mmol/L Sodium (136-145) mmol/L POC Potassium (3.3-5.0) mmol/L Potassium (3.5-5.1) mmol/L POC Chloride (101-112) mmol/L Chloride (98-107) mmol/L Carbon Dioxide (21-32) mmol/L POC Total CO2 (24-31) mmol/L Anion Gap (3-11) POC Anion Gap (16-25) mmol/L POC BUN (7-18) mg/dl BUN (7-18) mg/dl Creatinine (0.6-1.2) mg/dl POC Creatinine (0.6-1.3) mg/dl Est Cr Clr Drug Dosing ml/min Est GFR ( Amer) Est GFR (Non-Af Amer) BUN/Creatinine Ratio (10-20) Glucose (70-99) mg/dl POC Glucose (other) (70-99) mg/dl Calcium (8.5-10.1) mg/dl POC Ioniz Calcium Kelsey (1.12-1.32) mmol/l Total Bilirubin (0.2-1) mg/dl AST (15-37) U/L ALT (12-78) U/L Alkaline Phosphatase (45-117) U/L Troponin I (0-0.045) ng/ml Total Protein (6.4-8.2) gm/dl Albumin (3.4-5.0) gm/dl Globulin (2.5-4.0) gm/dl Albumin/Globulin Ratio (0.9-2) Blood Type A Positive Antibody Screen POSITIVE A Antibody Identification Anti-E Antigen Identification E Antigen - NEGATIVE Crossmatch See Detail 03/04/20 03/04/20 Range/Units 08:49 12:35 WBC (4.8-10.8) K/uL RBC (4.2-5.4) M/uL Hgb (12.0-16.0) g/dL POC Hgb 7.8 L (12.0-16.0) g/dl Hct (37-47) % POC Hct 23 L (37-47) % MCV (80-100) fL MCH (25-34) pg MCHC (32-36) g/dL RDW Std Deviation (36.4-46.3) fL RDW Coeff of Faizan (11.5-14.5) % Plt Count (130-400) K/uL MPV (7.4-10.4) fL Immature Gran % (Auto) % Neut % (Auto) % Lymph % (Auto) % [place] % (Auto) % Eos % (Auto) % Baso % (Auto) % Neut # (Auto) (1.4-6.5) K/uL Lymph # (Auto) (1.2-3.4) K/uL [place] # (Auto) (0.11-0.59) K/uL Eos # (Auto) (0-0.5) K/uL Baso # (Auto) (0-0.2) K/uL Immature Gran # (Auto) (0.00-0.02) K/uL PT (9.0-12.0) Seconds INR (0.9-1.1) APTT (21.0-31.0) Seconds PTT Ratio POC Sodium 139 (135-144) mmol/L Sodium 140 (136-145) mmol/L POC Potassium 4.4 (3.3-5.0) mmol/L Potassium 4.5 (3.5-5.1) mmol/L POC Chloride 104 (101-112) mmol/L Chloride 107 (98-107) mmol/L Carbon Dioxide 29 (21-32) mmol/L POC Total CO2 25 (24-31) mmol/L Anion Gap 4.0 (3-11) POC Anion Gap 15.0 L (16-25) mmol/L POC BUN 23 H (7-18) mg/dl BUN 25 H (7-18) mg/dl Creatinine 0.63 (0.6-1.2) mg/dl POC Creatinine 0.4 L (0.6-1.3) mg/dl Est Cr Clr Drug Dosing 98.4 ml/min Est GFR ( Amer) 110.6 Est GFR (Non-Af Amer) 95.5 BUN/Creatinine Ratio 40.1 H (10-20) Glucose 132 H (70-99) mg/dl POC Glucose (other) 144 H (70-99) mg/dl Calcium 9.0 (8.5-10.1) mg/dl POC Ioniz Calcium Kelsey 1.15 (1.12-1.32) mmol/l Total Bilirubin 0.5 (0.2-1) mg/dl AST 16 (15-37) U/L ALT 21 (12-78) U/L Alkaline Phosphatase 80 (45-117) U/L Troponin I < 0.015 (0-0.045) ng/ml Total Protein 6.4 (6.4-8.2) gm/dl Albumin 3.0 L (3.4-5.0) gm/dl Globulin 3.4 (2.5-4.0) gm/dl Albumin/Globulin Ratio 0.9 (0.9-2) Blood Type Antibody Screen Antibody Identification Antigen Identification Crossmatch ECG Additional Comments: Normal sinus rhythm Poor R wave progression, consider anterior MN vs. lead placement vs. LVH Abnormal ECG When compared with ECG of 03-MAR-2019 06:56, Minimal criteria for Anterior infarct are now Present Confirmed by Vic Crain ([id number]) on 03/04/2020 9:56:15 AM Code Status & VTE Plan Code Status FULL CODE Critical Care Time Critical Care Time: Yes Total Critical Care Time: 45 PG Care Time/CCT Total # of Minutes Spent Total Time Spent with Patient: Total time spent is greater than 50% in coordination of care (as documented) at patient's floor/unit and/or counseling patient: Critical Care Time: Yes Total Critical Care Time: 45 Coding Level of Care Code None Diagnoses Acute GI bleeding K92.2 Acute hypotension I95.9 Depression F32.9 Depression Type: major depressive disorder Major depression recurrence: unspecified whether recurrent Active/Remission status: remission status unspecified Anxiety F41.9 Hypertension I10 Hypertension type: essential hypertension Chronic pain G89.29 Chronic pain type: other chronic pain Additional Codes Critical Care Time - Critical Care Time: Yes ([id number]) (1) Depression Depression Type: major depressive disorder Major depression recurrence: unspecified whether recurrent Active/Remission status: remission status unspecified Qualified Code(s): F32.9 - Major depressive disorder, single episode, unspecified (2) Hypertension Hypertension type: essential hypertension Qualified Code(s): I10 - Essential (primary) hypertension (3) Chronic pain Chronic pain type: other chronic pain Qualified Code(s): G89.29 - Other chronic pain
--- NOTE | 2020-03-04 13:27 | Critical Care Consultation ---
Date of Consultation March 04, 2020 Assessment & Plan (1) Acute GI bleeding: Reason Critically Ill: 64-year-old female with acute GI bleed presumptively from anastomotic area of prior Manolo-en-Y. PLAN: Neuro: Chronic narcotic use -Dilaudid PRN for abdominal pain Anxiety Resp: Tachypnea -Likely secondary to functional anemia Fluids/Renal: Normosol at 125/h PPI infusion GI/Nutrition: Acute gastrointestinal hemorrhage Anastomosis ulcer Irritable bowel syndrome -PPI infusion Heme: Acute blood loss anemia -Receiving 2 units packed red blood cells DVT prophylaxis: SCDs Endocrine: Vascular access: 18-gauge IV in AC with 20-gauge IV, additional 18-gauge being placed by IV team Code Status: Full Disposition: Transfer to [facility] for interventional radiology and blood bank. I discussed the case with Dr. Shields at [facility] who is accepting the patient. We will proceed with helicopter transfer to minimize time outside the hospital as transport time is greater than 3 hours and the patient has had a significant drop in her H&H. (2) Ulcer at site of surgical anastomosis following bypass of stomach: (3) Melena: (4) H/O gastric bypass: (5) Gastritis: (6) Depression: (7) Anemia: (8) Chronic pain: (9) Irritable bowel syndrome with constipation: (10) Anxiety: (11) Red blood cell antibody positive, compatible PRBC difficult to obtain: History of Present Illness Reason for Consultation: Gastrointestinal hemorrhage Requesting Physician: Denise Posada DO Attending Physician: Denise Posada DO History of Present Illness Patient is a 64-year-old female with a significant past medical history of gastric bypass with recurrent anastomotic ulcer intervened 3 times. She had rectal bleeding which started at approximately 830 last night and has had 3 episodes of black tarry stools. Most recently she had another occurrence in the emergency department. Initially in the emergency department her initial hemoglobin was 11 it returned at 7.8. I spoke with gastroenterology given that she has been intervened upon 3 different times which includes clipping and injecting of the area this is likely entry level account representative of ischemia in scar tissue and would likely require interventions from interventional radiology. Additionally we are limited in our blood supply given red cell antibodies which are making obtaining crossmatch blood difficult. We have 2 units which we are transfusing at this time and have no additional blood aside from emergency release type O. Given these concerns both gastroenterology and myself recommend transfer to a [facility] with IR capabilities and a more robust blood bank supply. Allergies Allergy/AdvReac Type Severity Reaction Status Date / Time Bactrim Allergy Unknown unknown Verified 03/20/13 21:21 sulfamethoxazole Allergy Unknown at age 20, Verified 03/04/20 09:16 can not remember what happened trimethoprim Allergy Unknown at age 20, Verified 03/04/20 09:16 can not remember what happened Home Medications Home Medications Medication Instructions Recorded Confirmed Type gabapentin See Rx Instructions .ROUTE .COMPLEX 03/03/19 03/04/20 History bupropion HCl 150 mg tablet,12 hr 450 mg PO QAM ea 08/02/19 03/04/20 History sustained-release hydrocodone bitartrate 30 mg PO QAM 12/07/19 03/04/20 History hydromorphone 4 mg PO BID PRN 12/07/19 03/04/20 History Brain Power ~ Dr Stewart 2 tab PO BID 03/04/20 03/04/20 History Cholacol 1 tab PO TIDM 03/04/20 03/04/20 History [employer] ~ Dr Stewart 2 tab PO BID 03/04/20 03/04/20 History amlodipine 10 mg PO QAM 03/04/20 03/04/20 History aripiprazole 5 mg PO HS 03/04/20 03/04/20 History ascorbic acid (vitamin C) [Vitamin 3,000 mg PO TID 03/04/20 03/04/20 History C] dextroamphetamine-amphetamine 30 mg PO BID 03/04/20 03/04/20 History digestive enzymes 1 cap PO TIDM 03/04/20 03/04/20 History epinephrine 0.3 mg SUBCUT UD 03/04/20 03/04/20 History lorazepam 1.5 mg PO HS PRN 03/04/20 03/04/20 History magnesium oxide 800 mg PO HS 03/04/20 03/04/20 History melatonin 20 mg PO HS 03/04/20 03/04/20 History metoclopramide HCl [Reglan] 10 mg PO AC 03/04/20 03/04/20 History omega 0-vgv-ljh-fish oil [Fish Oil] 1 cap PO BID 03/04/20 03/04/20 History sumatriptan succinate 4 mg SUBCUT UD PRN 03/04/20 03/04/20 History Patient History Medical History Anemia Anxiety Attention deficit disorder (ADD) Bulging discs Chronic pain Depression GI bleed hx of Glaucoma Hepatitis C hx - treated History of anesthesia reaction hx of waking up during procedures Hypertension Medical marijuana use Migraine Neuropathy Osteoarthritis Scoliosis Spinal stenosis Surgical History History of appendectomy History of bilateral breast reduction surgery History of bilateral cataract extraction History of bilateral tubal ligation History of cardiac cath 2005 @ [facility]---"fistula in heart between 2 valves"--no stents History of cholecystectomy History of colonoscopy History of esophagogastroduodenoscopy (EGD) History of eye surgery right---scar tissue from cataract sx History of fusion of cervical spine C4-C5--normal ROM History of lung biopsy right side--benign History of mandibular surgery 1978--wired shut History of open reduction and internal fixation (ORIF) procedure right ankle--hardware in place History of partial hysterectomy History of right shoulder replacement History of Manolo-en-Y gastric bypass History of tooth extraction History of total left knee replacement (TKR) x2 History of total right hip replacement History of wisdom tooth extraction Status post left foot surgery x7-hardware in place Status post right foot surgery x7--hardware in place Family History Mother Colorectal cancer Father Lung cancer Family history of esophageal cancer Brother Family history of esophageal cancer Grandfather (Maternal) Family history of esophageal cancer Other No family history of adverse response to anesthesia Social History Smoking Status: Never smoker Second Hand Exposure: Yes (parents smoked); Hx Alcohol Use: No Hx Substance Use: No Preferred Language: Libyan Communication Ability: Effective Emergency Veterinary Technician Required: No Beliefs That Will Affect Care: None Current Living Situation: Family Current Living Situation Comment: Lives with brother Feels Safe at Home: Yes Assistive Devices: Glasses Review of Systems Review of Systems: Abdominal pain, dizziness, lightheadedness, pre-syncope. No hematemesis. NSAIDs for migraine headaches: Approximately 500 mg every other day. Patient had coronavirus on November 10 and now reports antibodies. No additional concern for exposures. Physical Exam Physical Exam: General: Alert. nontoxic. Skin: Warm, dry, pallor Head: Atraumatic Ears, nose, mouth and throat: airway patent Cardiovascular: Normal peripheral perfusion Respiratory: no respiratory distress Gastrointestinal: Non distended Musculoskeletal: No deformity Results & Data Results & Data ([facility]) Vital Signs (Past 12 Hours) Vital Signs Temp Pulse Resp BP Pulse Ox 03/04/20 13:01 82 21 95 03/04/20 13:00 83 108/68 93 03/04/20 12:33 82 19 94 03/04/20 12:32 78 15 99/63 L 93 03/04/20 12:30 78 16 93 03/04/20 12:18 84 14 72/55 L 93 03/04/20 12:00 77 15 92/55 L 03/04/20 11:48 82 16 93/58 L 03/04/20 11:30 82 17 03/04/20 11:00 88 26 H 119/72 03/04/20 10:31 82 18 03/04/20 10:30 81 15 121/68 03/04/20 10:01 91 H 17 03/04/20 10:00 86 16 118/70 03/04/20 09:30 97 H 22 119/75 03/04/20 09:28 94 H 16 03/04/20 09:27 98 H 16 111/70 03/04/20 08:56 96 03/04/20 08:40 92 H 20 96 03/04/20 08:36 36.7 C 95 H 18 136/75 96 03/04/20 08:32 91 H 14 136/75 94 Laboratory Results 03/04/20 03/04/20 03/04/20 Range/Units 15:30 15:08 15:08 WBC 4.21 L (4.8-10.8) K/uL RBC 3.30 L (4.2-5.4) M/uL Hgb 9.0 L (12.0-16.0) g/dL POC Hgb (12.0-16.0) g/dl Hct 27.2 L (37-47) % POC Hct (37-47) % MCV 82.4 (80-100) fL MCH 27.3 (25-34) pg MCHC 33.1 (32-36) g/dL RDW Std Deviation 44.1 (36.4-46.3) fL RDW Coeff of Faizan 14.6 H (11.5-14.5) % Plt Count 221 (130-400) K/uL MPV 8.9 (7.4-10.4) fL Immature Gran % (Auto) 0.2 % Neut % (Auto) 58.0 % Lymph % (Auto) 33.5 % [place] % (Auto) 5.7 % Eos % (Auto) 2.4 % Baso % (Auto) 0.2 % Neut # (Auto) 2.44 (1.4-6.5) K/uL Lymph # (Auto) 1.41 (1.2-3.4) K/uL [place] # (Auto) 0.24 (0.11-0.59) K/uL Eos # (Auto) 0.10 (0-0.5) K/uL Baso # (Auto) 0.01 (0-0.2) K/uL Immature Gran # (Auto) 0.01 (0.00-0.02) K/uL PT (9.0-12.0) Seconds INR (0.9-1.1) APTT (21.0-31.0) Seconds PTT Ratio POC Sodium (135-144) mmol/L Sodium (136-145) mmol/L POC Potassium (3.3-5.0) mmol/L Potassium (3.5-5.1) mmol/L POC Chloride (101-112) mmol/L Chloride (98-107) mmol/L Carbon Dioxide (21-32) mmol/L POC Total CO2 (24-31) mmol/L Anion Gap (3-11) POC Anion Gap (16-25) mmol/L POC BUN (7-18) mg/dl BUN (7-18) mg/dl Creatinine (0.6-1.2) mg/dl POC Creatinine (0.6-1.3) mg/dl Est Cr Clr Drug Dosing ml/min Est GFR ( Amer) Est GFR (Non-Af Amer) BUN/Creatinine Ratio (10-20) Glucose (70-99) mg/dl POC Glucose (other) (70-99) mg/dl Calcium (8.5-10.1) mg/dl POC Ioniz Calcium Kelsey (1.12-1.32) mmol/l Total Bilirubin (0.2-1) mg/dl AST (15-37) U/L ALT (12-78) U/L Alkaline Phosphatase (45-117) U/L Troponin I (0-0.045) ng/ml Total Protein (6.4-8.2) gm/dl Albumin (3.4-5.0) gm/dl Globulin (2.5-4.0) gm/dl Albumin/Globulin Ratio (0.9-2) Lipase 33 L (73-393) U/L Urine Color Urine Appearance (Clear) Urine pH (4.5-7.5) Ur Specific [place] (1.000-1.030) Urine Protein (Negative) Urine Glucose (UA) (Negative) Urine Ketones (Negative) Urine Blood (Negative) Urine Nitrite (Negative) Urine Bilirubin (Negative) Urine Urobilinogen (Negative) Ur Leukocyte Esterase (Negative) Urine WBC (Auto) (0-5) /hpf Urine RBC (Auto) (0-4) /hpf U Hyaline Cast (Auto) (0-5) /lpf U Epithel Cells (Auto) (0-5) /lpf Urine Bacteria (Auto) (Negative) Nasal Screen MRSA (PCR) Pending Blood Type Antibody Screen Antibody Identification Antibody ID Comment Antigen Identification Crossmatch 03/04/20 03/04/20 03/04/20 Range/Units 12:35 09:25 08:49 WBC (4.8-10.8) K/uL RBC (4.2-5.4) M/uL Hgb (12.0-16.0) g/dL POC Hgb 7.8 L (12.0-16.0) g/dl Hct (37-47) % POC Hct 23 L (37-47) % MCV (80-100) fL MCH (25-34) pg MCHC (32-36) g/dL RDW Std Deviation (36.4-46.3) fL RDW Coeff of Fazian (11.5-14.5) % Plt Count (130-400) K/uL MPV (7.4-10.4) fL Immature Gran % (Auto) % Neut % (Auto) % Lymph % (Auto) % [place] % (Auto) % Eos % (Auto) % Baso % (Auto) % Neut # (Auto) (1.4-6.5) K/uL Lymph # (Auto) (1.2-3.4) K/uL [place] # (Auto) (0.11-0.59) K/uL Eos # (Auto) (0-0.5) K/uL Baso # (Auto) (0-0.2) K/uL Immature Gran # (Auto) (0.00-0.02) K/uL PT (9.0-12.0) Seconds INR (0.9-1.1) APTT (21.0-31.0) Seconds PTT Ratio POC Sodium 139 (135-144) mmol/L Sodium 140 (136-145) mmol/L POC Potassium 4.4 (3.3-5.0) mmol/L Potassium 4.5 (3.5-5.1) mmol/L POC Chloride 104 (101-112) mmol/L Chloride 107 (98-107) mmol/L Carbon Dioxide 29 (21-32) mmol/L POC Total CO2 25 (24-31) mmol/L Anion Gap 4.0 (3-11) POC Anion Gap 15.0 L (16-25) mmol/L POC BUN 23 H (7-18) mg/dl BUN 25 H (7-18) mg/dl Creatinine 0.63 (0.6-1.2) mg/dl POC Creatinine 0.4 L (0.6-1.3) mg/dl Est Cr Clr Drug Dosing 98.4 ml/min Est GFR ( Amer) 110.6 Est GFR (Non-Af Amer) 95.5 BUN/Creatinine Ratio 40.1 H (10-20) Glucose 132 H (70-99) mg/dl POC Glucose (other) 144 H (70-99) mg/dl Calcium 9.0 (8.5-10.1) mg/dl POC Ioniz Calcium Kel[place] 1.15 (1.12-1.32) mmol/l Total Bilirubin 0.5 (0.2-1) mg/dl AST 16 (15-37) U/L ALT 21 (12-78) U/L Alkaline Phosphatase 80 (45-117) U/L Troponin I < 0.015 (0-0.045) ng/ml Total Protein 6.4 (6.4-8.2) gm/dl Albumin 3.0 L (3.4-5.0) gm/dl Globulin 3.4 (2.5-4.0) gm/dl Albumin/Globulin Ratio 0.9 (0.9-2) Lipase (73-393) U/L Urine Color Yellow Urine Appearance Clear (Clear) Urine pH 7.0 (4.5-7.5) Ur Specific [place] 1.026 (1.000-1.030) Urine Protein Negative (Negative) Urine Glucose (UA) Negative (Negative) Urine Ketones Negative (Negative) Urine Blood Negative (Negative) Urine Nitrite Positive A (Negative) Urine Bilirubin Negative (Negative) Urine Urobilinogen Negative (Negative) Ur Leukocyte Esterase Trace H (Negative) Urine WBC (Auto) 1-5 (0-5) /hpf Urine RBC (Auto) 0-4 (0-4) /hpf U Hyaline Cast (Auto) 0 (0-5) /lpf U Epithel Cells (Auto) 5-10 H (0-5) /lpf Urine Bacteria (Auto) 4+ H (Negative) Nasal Screen MRSA (PCR) Blood Type Antibody Screen Antibody Identification Antibody ID Comment Antigen Identification Crossmatch 03/04/20 03/04/20 03/04/20 Range/Units 08:49 08:49 08:49 WBC 5.02 (4.8-10.8) K/uL RBC 4.13 L (4.2-5.4) M/uL Hgb 11.3 L (12.0-16.0) g/dL POC Hgb (12.0-16.0) g/dl Hct 34.4 L (37-47) % POC Hct (37-47) % MCV 83.3 (80-100) fL MCH 27.4 (25-34) pg MCHC 32.8 (32-36) g/dL RDW Std Deviation 44.8 (36.4-46.3) fL RDW Coeff of Faizan 14.6 H (11.5-14.5) % Plt Count 290 (130-400) K/uL MPV 9.1 (7.4-10.4) fL Immature Gran % (Auto) 0.0 % Neut % (Auto) 50.3 % Lymph % (Auto) 36.9 % [place] % (Auto) 7.6 % Eos % (Auto) 4.4 % Baso % (Auto) 0.8 % Neut # (Auto) 2.53 (1.4-6.5) K/uL Lymph # (Auto) 1.85 (1.2-3.4) K/uL [place] # (Auto) 0.38 (0.11-0.59) K/uL Eos # (Auto) 0.22 (0-0.5) K/uL Baso # (Auto) 0.04 (0-0.2) K/uL Immature Gran # (Auto) 0.00 (0.00-0.02) K/uL PT 10.6 (9.0-12.0) Seconds INR 1.0 (0.9-1.1) APTT 27.6 (21.0-31.0) Seconds PTT Ratio 1.0 POC Sodium (135-144) mmol/L Sodium (136-145) mmol/L POC Potassium (3.3-5.0) mmol/L Potassium (3.5-5.1) mmol/L POC Chloride (101-112) mmol/L Chloride (98-107) mmol/L Carbon Dioxide (21-32) mmol/L POC Total CO2 (24-31) mmol/L Anion Gap (3-11) POC Anion Gap (16-25) mmol/L POC BUN (7-18) mg/dl BUN (7-18) mg/dl Creatinine (0.6-1.2) mg/dl POC Creatinine (0.6-1.3) mg/dl Est Cr Clr Drug Dosing ml/min Est GFR ( Amer) Est GFR (Non-Af Amer) BUN/Creatinine Ratio (10-20) Glucose (70-99) mg/dl POC Glucose (other) (70-99) mg/dl Calcium (8.5-10.1) mg/dl POC Ioniz Calcium [place] (1.12-1.32) mmol/l Total Bilirubin (0.2-1) mg/dl AST (15-37) U/L ALT (12-78) U/L Alkaline Phosphatase (45-117) U/L Troponin I (0-0.045) ng/ml Total Protein (6.4-8.2) gm/dl Albumin (3.4-5.0) gm/dl Globulin (2.5-4.0) gm/dl Albumin/Globulin Ratio (0.9-2) Lipase (73-393) U/L Urine Color Urine Appearance (Clear) Urine pH (4.5-7.5) Ur Specific [place] (1.000-1.030) Urine Protein (Negative) Urine Glucose (UA) (Negative) Urine Ketones (Negative) Urine Blood (Negative) Urine Nitrite (Negative) Urine Bilirubin (Negative) Urine Urobilinogen (Negative) Ur Leukocyte Esterase (Negative) Urine WBC (Auto) (0-5) /hpf Urine RBC (Auto) (0-4) /hpf U Hyaline Cast (Auto) (0-5) /lpf U Epithel Cells (Auto) (0-5) /lpf Urine Bacteria (Auto) (Negative) Nasal Screen MRSA (PCR) Blood Type A Positive Antibody Screen POSITIVE A Antibody Identification Anti-E Antibody ID Comment Pending Antigen Identification E Antigen - NEGATIVE Crossmatch See Detail Coding Level of Care Code Critical Care 1st 30-74 mins Diagnoses Acute GI bleeding K92.2 Ulcer at site of surgical anastomosis following bypass of stomach K28.9 Melena K92.1 H/O gastric bypass Z98.84 Gastritis K29.01 Gastritis type: other gastritis Chronicity: acute Gastritis bleeding: with bleeding Depression F32.9 Depression Type: major depressive disorder Major depression recurrence: unspecified whether recurrent Active/Remission status: remission status unspecified Anemia D62 Anemia type: other cause Other causes of anemia: acute posthemorrhagic Chronic pain G89.29 Chronic pain type: other chronic pain Irritable bowel syndrome with constipation K58.1 Anxiety F41.9 Red blood cell antibody positive, compatible PRBC difficult to obtain R76.8 Time Spent (min) 45 Comment I have personally spent 45 minutes of critical care time in the direct management of this patient. This is a life/limb threatening event. This includes time spent evaluating patient, direct bedside care, chart review, placing orders, interpretation of diagnostic studies, discussion with consultants, patient, and/or family members regarding treatment decisions, as well as other required patient management activities. This time is exclusive of all separately billable procedures, and teaching time and separate from and in addition to any other critical care service time. (1) Gastritis Gastritis type: other gastritis Chronicity: acute Gastritis bleeding: with bleeding Qualified Code(s): K29.01 - Acute gastritis with bleeding (2) Depression Depression Type: major depressive disorder Major depression recurrence: unspecified whether recurrent Active/Remission status: remission status unspecified Qualified Code(s): F32.9 - Major depressive disorder, single episode, unspecified (3) Anemia Anemia type: other cause Other causes of anemia: acute posthemorrhagic Qualified Code(s): D62 - Acute posthemorrhagic anemia (4) Chronic pain Chronic pain type: other chronic pain Qualified Code(s): G89.29 - Other chronic pain
[2020-03-04 14:48] LABS: Appearance Urine Clear (Clear); Bacteria Urine Automated 4+ (Negative); Bilirubin Urine Negative (Negative); Blood Urine Negative (Negative); Cast Urine Automated 0 /lpf (0-5); Color Urine Yellow; Glucose Urine UA Negative (Negative); Ketones Urine Negative (Negative); Leukocyte Esterase Urine Trace (Negative); Nitrite Urine Positive (Negative); Protein Urine Negative (Negative); RBC Urine Automated 0-4 /hpf (0-4); Specific Gravity Urine 1.026 (1.000-1.030); Urobilinogen Urine Negative (Negative)
[2020-03-04] MEDS ORDERED: ONDANSETRON INJ 2 MG/ML 2 ML VIAL IV PRN (14:58)
[2020-03-04] MEDS ORDERED: NORMOSOL-R 1,000 ML IV SCH (14:58)
[2020-03-04] MEDS ORDERED: ICU PROTOCOL FOR HYPERGLYCEMIA PRN (14:58)
[2020-03-04 15:23] LABS: Basophils # (auto) 0.01 K/uL (0-0.2); Basophils % (auto) 0.2 %; Eosinophils % (auto) 2.4 %; Hematocrit (blood only) 27.2 % (37-47); Immature Granulocytes # (auto) 0.01 K/uL (0.00-0.02); Immature Granulocytes % (auto) 0.2 %; Lymphocytes # (auto) 1.41 K/uL (1.2-3.4); Lymphocytes % (auto) 33.5 %; Mean Corpuscular Hemoglobin 27.3 pg (25-34); Mean Corpuscular Hgb Conc 33.1 g/dL (32-36); Mean Corpuscular Volume 82.4 fL (80-100); Mean Platelet Volume 8.9 fL (7.4-10.4); Monocytes # (auto) 0.24 K/uL (0.11-0.59); Monocytes % (auto) 5.7 %; Neutrophils # (auto) 2.44 K/uL (1.4-6.5); Platelet Count 221 K/uL (130-400); RDW Coefficient of Variation 14.6 % (11.5-14.5); RDW Standard Deviation 44.1 fL (36.4-46.3); White Blood Count 4.21 K/uL (4.8-10.8)
--- NOTE | 2020-03-04 20:55 | Consultation Report ---
DATE OF CONSULTATION: 03/04/2020 GASTROENTEROLOGY CONSULTATION NOTE REFERRED BY: Denise Posada DO. I was asked by Dr. Posada to consult on this woman for evaluation of GI bleeding. HISTORY OF PRESENT ILLNESS: The patient is a 64-year-old who is status post gastric bypass approximately 10 years ago at an outside institution. Over the past 2 years, she has had 4 GI bleeds related to anastomotic ulcer bleeding. She has had injection and clipping. She is maintained on a proton pump inhibitor at home. She is compliant with this. She does take occasional aspirin for migraines, but does not take any other nonsteroidal products. Last evening, she had a melenic stool and she had more this morning, which made her present to the Emergency Room. Initially, her hemoglobin was 11___ and with hydration went to 7.8. She has some mild generalized abdominal discomfort, but no significant abdominal pain. She has had no hematemesis. The patient received a transfusion of unmatched blood and has a significant history of multiple antibodies to blood products. PAST MEDICAL HISTORY: I reviewed her medical records and past medical history, and her past medical history is significant for what is already mentioned as well as a history of depression, anxiety, hypertension. ALLERGIES: SHE IS ALLERGIC TO SULFA AND TRIMETHOPRIM. OUTPATIENT MEDICATIONS: Include gabapentin, bupropion, hydrocodone p.r.n., Cholacol, amlodipine, aripiprazole, vitamins, dextroamphetamine, lorazepam, melatonin, metoclopramide p.r.n., sumatriptan. FAMILY HISTORY: Significant for colorectal cancer in her mother. Her most recent colonoscopy was this year. SOCIAL HISTORY: Significant for no smoking, but history of marijuana use. She does not drink. REVIEW OF SYSTEMS: As above, otherwise she has had no recent change in vision or hearing. She has had weakness. She denies any skin rashes, pruritus or jaundice. She has had no hair loss. She has had no easy bruising. She denies any joint swelling. She denies any heat or cold intolerance. She has had no productive cough. She has no chest pain. She has no dysuria. She denies any history of recent seizures. She has had no change in mood or mental status. She has had no change in gait. PHYSICAL EXAMINATION: GENERAL: Reveals a woman in the intensive care unit in no obvious distress. VITAL SIGNS: Most recent blood pressure is 108/62, pulse is 80, temperature is 36.9. SKIN: Anicteric. EYES: Show anicteric sclerae. MOUTH: Clear of lesions. NECK: Supple with no adenopathy. CHEST: Clear. HEART: Regular rate and rhythm. ABDOMEN: Has some mild tenderness to deep palpation, but is otherwise soft with good bowel sounds. There are no obvious masses or rebound tenderness. EXTREMITIES: Warm with fair distal pulses. NEUROLOGIC: She is alert and oriented x3 and grossly intact. LABORATORY DATA: Again, her hemoglobin on admission was 11.3 and after hydration went down to 7.8. BUN and creatinine are 23 and 0.4, respectively. Platelet count is normal and INR is normal. IMPRESSION AND PLAN: A 64-year-old woman with gastrointestinal bleeding, most likely related to anastomotic ulcer again. It is concerning that she has had 4 bleeds. It is also concerning that we do not have a robust blood supply to meet her needs if needed. I will discuss with the intensive care team consideration of where she might be best served since one therapeutic option might be needed such as interventional radiology with coiling of blood vessel. It may be difficult to give her the blood she may need as well. I have discussed these potential issues with the patient. At this point, we will continue to keep her n.p.o., keep her on IV proton pump inhibitor. Follow her hemoglobin. She will be stabilized.
[2020-03-04] MEDS ORDERED: AMPHETAMINE ASP/SULF/DEXTRAMPH 10 MG TAB PO SCH (21:00)
[2020-03-04] MEDS ORDERED: MAGNESIUM OXIDE 400 MG TAB PO SCH (21:00)
[2020-03-04] MEDS ORDERED: ARIPiprazole 5 MG TAB PO SCH (21:00)
[2020-03-04] MEDS ORDERED: MELATONIN 3 MG TAB PO SCH (21:00)
[2020-03-04] MEDS ORDERED: GABAPENTIN 600 MG TAB PO SCH (21:00)
[2020-03-05] MEDS ORDERED: BuPROPion SR 150 MG TABCR PO SCH (09:00)
[2020-03-05] MEDS ORDERED: GABAPENTIN 800 MG TAB PO SCH ×2 (09:00)
== END 2020-03-04 16:35 | disposition short-term general hospital (02) ==
LOC: ED 08:30 → INTOOBSV 13:20 → 1E 13:20

== ENCOUNTER 2022-06-02 21:11 | Inpatient (IN) ==
[2022-06-02 21:42] LABS: Basophils # (auto) 0.03 K/uL (0-0.2); Basophils % (auto) 0.5 %; Eosinophils # (auto) 0.09 K/uL (0-0.50); Eosinophils % (auto) 1.5 %; Hematocrit (blood only) 33.9 % (34.1-44.9); Hemoglobin 11.5 g/dl (12.0-16.0); Immature Granulocytes # (auto) 0.01 K/uL (0.00-0.02); Immature Granulocytes % (auto) 0.2 %; Lymphocytes % (auto) 33.4 %; Mean Corpuscular Hemoglobin 28.2 pg (25.0-34.0); Mean Corpuscular Hgb Conc 33.9 g/dL (32.0-36.0); Mean Corpuscular Volume 83.1 fL (80.0-100.0); Mean Platelet Volume 9.5 fL (9.4-12.3); Monocytes # (auto) 0.47 K/uL (0.24-0.82); Monocytes % (auto) 7.8 %; Neutrophils # (auto) 3.39 K/uL (1.4-6.5); Neutrophils % (auto) 56.6 %; Platelet Count 246 K/uL (130-400); RDW Coefficient of Variation 12.9 % (11.5-14.5); Red Blood Count 4.08 M/uL (3.93-5.22); White Blood Count 5.99 K/ul (4.8-10.8)
[2022-06-02 21:59] LABS: Albumin Globulin Ratio 1.6 (0.9-2); Albumin Level 4.2 gm/dl (3.4-5.0); BUN Creatinine Ratio 38.3 (10-20); Bilirubin,Total 0.7 mg/dl (0.2-1.0); Calcium 9.2 mg/dl (8.5-10.1); Creatinine Clr Calc Pharmacy 107.2 ml/min; Est GFR (African American) 110.9 ml/min; Est GFR (Non-African American) 95.7 ml/min; Globulin 2.6 gm/dl (2.5-4.0); Potassium 4.1 mmol/L (3.5-5.1); Total Protein 6.8 gm/dl (6.0-8.3)
[2022-06-02] MEDS ORDERED: PANTOPRAZOLE BOLUS/DRIP 1 EACH IV STA (22:03)
[2022-06-02] MEDS ORDERED: FAMOTIDINE 20MG IV PUSH 20 MG/5 ML SYR IV STA (22:03)
[2022-06-02] MEDS ORDERED: PANTOprazole 80 MG in DEXTROSE 5% 100 ML IV ONE (22:03)
[2022-06-02] MEDS ORDERED: SODIUM CHLORIDE 0.9% 1000ML 500 ML IV ONE (22:03)
[2022-06-02] MEDS ORDERED: SODIUM CHLORIDE 0.9% 1000ML 1,000 ML IV SCH (22:15)
[2022-06-02] MEDS ORDERED: HYDROmorphone INJ 0.5 MG/0.5 ML SYR IV STA (22:35)
[2022-06-02] MEDS ORDERED: ONDANSETRON INJ 2 MG/ML 2 ML VIAL IV STA (22:35)
--- NOTE | 2022-06-02 23:15 | Emergency Department Note ---
Impression & Plan UGIB (upper gastrointestinal bleed) ED Provider Note INFORMANT: Patient ED PROVIDER(S): Malcolm Fitch MD CHIEF COMPLAINT: Rectal bleeding PLAN: Disposition: Admitted Condition: Good Outpatient prescription management: none Referral: None MEDICAL DECISION MAKING: Patient presented with history concerning for GI bleed. She had tarry stools, black then noted some red blood. She has history of GI bleed as well as gastric bypass. Patient notes she is using NSAIDs which increases risk for GI bleeding significantly patient had an IV established. She was hydrated. Because of her history she was started on a Protonix bolus and drip. She was also given IV Pepcid. Patient did have some epigastric pain and was treated with IV Zofran and Dilaudid. Patient's ECG showed a sinus rhythm. Her CBC showed a mild anemia. Chemistry panel was unremarkable. CT imaging showed postsurgical changes without acute process. Chest x-ray was negative for acute process as well. Patient is going to require further management in the hospital due to her history and symptoms. Consultation was made with Dr. Bebeto Uribe of the [facility] service. Case was discussed and diagnostics were reviewed patient was evaluated in the ER for further management. Triage Nursing notes reviewed and agree them. Vital Signs: reviewed and remarkable for no significant abnormalities Prior /Outside records reviewed: none Differential diagnosis: Marginal ulcer, NSAID use, AVM, coagulopathy, colitis, inflammatory bowel disease, malignancy, Ashley-Orta tear, esophagitis, peptic ulcer disease, variceal bleed, gastritis, epistaxis, fissure, hemorrhoids, as well as other pathologies. Diagnostics, as interpreted by me: ECG: Twelve-lead ECG reveals normal sinus rhythm at 87 bpm. Poor R wave progression. No ST elevation or depression. Cardiac Monitoring: Cardiac monitoring ordered by me: The patient was placed on continuous cardiac monitoring and observed. It revealed a normal sinus rhythm at 92 beats per minute without ectopy or evidence of dysrhythmia. Medical decision rules: none Imaging studies: CT scan of the abdomen pelvis reveals no acute process. Prior surgical changes noted. I refer you to the EMR for further details. HPI: The patient is a 66 year old female with past medical history of GI bleed and gastric bypass who presents to the Emergency Room with complaints of rectal bleeding. This started today and is accompanied by a few days of dark tarry stools. The patient also notes the following associated symptoms, upper abdominal pain mild shortness of breath, nausea and dizziness. History of GI bleed 2 years ago. Patient notes she does use Aleve. The patient has taken no medication for relieving factors. Current pain is rated as 5/10. Pt denies LOC, headache, fevers, chills, diaphoresis, visual changes, neck pain, chest pain, vomiting, back pain, urinary symptoms, numbness, weakness, lymphadenopathy, rash, or other complaints. PAST MEDICAL HISTORY: See Below, GI bleed PAST SURGICAL HISTORY: See Below, gastric bypass SOCIAL HISTORY: See Below, non-smoker HOME MEDICATIONS: See Below ALLERGIES: See Below VITALS: See Below PHYSICAL EXAMINATION: GENERAL: Awake, alert, nontoxic-appearing, in no distress HENT: Normocephalic, atraumatic. Oropharynx unremarkable. EYES: Normal conjunctiva. Sclera non-icteric. NECK: Inspection normal. Non-tender. Supple. No nuchal rigidity. FROM. No masses. RESPIRATORY: Clear to auscultation. No wheezes. No rales. Normal respiratory effort. CARDIAC: Normal rate. Normal rhythm. No murmurs. No rubs. Extremities warm and well perfused. Pulses equal. No JVD. GI: Soft, non-distended. Epigastric tenderness to palpation. No rebound or guarding. No masses. RECTAL: Deferred. MUSCULOSKELETAL: Atraumatic. Chest examination reveals no tenderness. The back is symmetrical on inspection without obvious abnormality. There is no CVA tenderness to palpation. No joint edema. LOWER EXTREMITIES: Calves are equal size bilaterally and non-tender. No edema. No discoloration. NEURO: Normal sensorium. No sensory or motor deficits noted. SKIN: No rash or jaundice noted. Past Med/Surg History Medical History (Updated 06/03/22 @ 00:04 by René Miramontes MD) Anemia Anxiety Attention deficit disorder (ADD) Bulging discs Chronic back pain Chronic pain Depression GI bleed hx of Glaucoma Hepatitis C hx - treated History of anesthesia reaction hx of waking up during procedures Hypertension Medical marijuana use Migraine Neuropathy Osteoarthritis Scoliosis Spinal stenosis Surgical History History of appendectomy History of bilateral breast reduction surgery History of bilateral cataract extraction History of bilateral tubal ligation History of cardiac cath 2005 @ [facility]---"fistula in heart between 2 valves"--no stents History of cholecystectomy History of colonoscopy History of esophagogastroduodenoscopy (EGD) History of eye surgery right---scar tissue from cataract sx History of fusion of cervical spine C4-C5--normal ROM History of lung biopsy right side--benign History of mandibular surgery 1978--wired shut History of open reduction and internal fixation (ORIF) procedure right ankle--hardware in place History of partial hysterectomy History of right shoulder replacement History of Manolo-en-Y gastric bypass History of tooth extraction History of total left knee replacement (TKR) x2 History of total right hip replacement History of wisdom tooth extraction Status post left foot surgery x7-hardware in place Status post right foot surgery x7--hardware in place Family History Mother Colorectal cancer Father Lung cancer Family history of esophageal cancer Brother Family history of esophageal cancer Grandfather (Maternal) Family history of esophageal cancer Other No family history of adverse response to anesthesia Social History Smoking Status: Never smoker Second Hand Exposure: Yes (parents smoked); Hx Alcohol Use: No Hx Substance Use: No Preferred Language: Kazakh Communication Ability: Effective Air Brake Man Required: No Beliefs That Will Affect Care: None Current Living Situation: Family Current Living Situation Comment: Lives with brother Feels Safe at Home: Yes Assistive Devices: Glasses Allergies Allergies Allergy/AdvReac Type Severity Reaction Status Date / Time Bactrim Allergy Unknown unknown Verified 03/20/13 21:21 sulfamethoxazole Allergy Unknown at age 20, Verified 06/03/22 00:12 can not remember what happened trimethoprim Allergy Unknown at age 20, Verified 06/03/22 00:12 can not remember what happened milk AdvReac Diarrhea Unverified 06/03/22 00:13 ice cream AdvReac Diarrhea Uncoded 06/03/22 00:14 Home Meds Home Medications Medication Instructions Recorded Confirmed aripiprazole 10 mg tablet 10 mg PO QAM 06/03/22 06/03/22 bupropion HCl 150 mg 24 hr tablet, 150 mg PO QAM 06/03/22 06/03/22 extended release (Wellbutrin XL) bupropion HCl 300 mg 24 hr tablet, 300 mg PO QAM 06/03/22 06/03/22 extended release (Wellbutrin XL) cholecalciferol (vitamin D3) 10 10 mcg PO DAILY 06/03/22 06/03/22 mcg (400 unit) tablet dextroamphetamine-amphetamine 30 30 mg PO BID 06/03/22 06/03/22 mg tablet etodolac 500 mg tablet,extended 1,000 mg PO DAILY 06/03/22 06/03/22 release 24 hr gabapentin 600 mg tablet 1,800 mg PO AMHS 06/03/22 06/03/22 metoclopramide HCl 10 mg tablet 10 mg PO AC 06/03/22 06/03/22 morphine 15 mg tablet,extended 15 mg PO BID 06/03/22 06/03/22 release multivitamin (Multiple Vitamins 1 tab PO DAILY 06/03/22 06/03/22 tablet) sumatriptan succinate 100 mg tablet 100 mg PO .DAILY/UD PRN Migraine 06/03/22 06/03/22 Headache tizanidine 4 mg tablet 4 - 12 mg PO HS PRN Muscle Spasm 06/03/22 06/03/22 vitamin B complex 1 tab PO DAILY 06/03/22 06/03/22 Results & Data (ED) Vital Signs Vital Signs - 24 hr 06/02/22 21:29 06/02/22 21:33 06/02/22 21:35 Temperature 36.5 C Temperature Source Oral Pulse Rate Pulse Rate [Right Finger] 92 H Pulse Rhythm [Right Finger] Pulse Strength [Right Finger] Respiratory Rate Respiratory Effort / Characteristics Respiratory Depth Respiratory Pattern Blood Pressure Blood Pressure [Right Arm] 140/95 Blood Pressure Mean Blood Pressure Mean [Right Arm] 110 Blood Pressure Position [Right Arm] Pulse Oximetry 95 96 Oxygen Delivery Method Room Air Room Air Sepsis Recent Fever Within 48 Hours No Sepsis New/Unexplained Change in Mental Status No Sepsis Action Taken by Nursing No Action Required 06/02/22 23:31 06/03/22 00:30 06/03/22 01:00 Temperature Temperature Source Pulse Rate 81 92 H Pulse Rate [Right Finger] 83 Pulse Rhythm [Right Finger] Regular Pulse Strength [Right Finger] Normal Respiratory Rate 17 23 16 Respiratory Effort / Characteristics Non-Labored Spontaneous Respiratory Depth Normal Respiratory Pattern Regular Blood Pressure 138/78 124/55 L Blood Pressure [Right Arm] 134/79 Blood Pressure Mean 98 78 Blood Pressure Mean [Right Arm] 97 Blood Pressure Position [Right Arm] Sitting Pulse Oximetry 98 95 97 Oxygen Delivery Method Room Air Room Air Room Air Sepsis Recent Fever Within 48 Hours Sepsis New/Unexplained Change in Mental Status Sepsis Action Taken by Nursing 06/03/22 02:00 Temperature Temperature Source Pulse Rate 92 H Pulse Rate [Right Finger] Pulse Rhythm [Right Finger] Pulse Strength [Right Finger] Respiratory Rate 18 Respiratory Effort / Characteristics Respiratory Depth Respiratory Pattern Blood Pressure 116/79 Blood Pressure [Right Arm] Blood Pressure Mean 91 Blood Pressure Mean [Right Arm] Blood Pressure Position [Right Arm] Pulse Oximetry 95 Oxygen Delivery Method Room Air Sepsis Recent Fever Within 48 Hours Sepsis New/Unexplained Change in Mental Status Sepsis Action Taken by Nursing Laboratory Data Result diagrams: 06/02/22 21:28 06/02/22 21:28 Lab Results 06/02/22 06/02/22 06/02/22 Range/Units 21:28 21:28 21:28 WBC 5.99 (4.8-10.8) K/ul RBC 4.08 (3.93-5.22) M/uL Hgb 11.5 L (12.0-16.0) g/dl Hct 33.9 L (34.1-44.9) % MCV 83.1 (80.0-100.0) fL MCH 28.2 (25.0-34.0) pg MCHC 33.9 (32.0-36.0) g/dL RDW Std Deviation 39.0 (36.4-46.3) fL RDW Coeff of Faizan 12.9 (11.5-14.5) % Plt Count 246 (130-400) K/uL MPV 9.5 (9.4-12.3) fL Immature Gran % (Auto) 0.2 % Neut % (Auto) 56.6 % Lymph % (Auto) 33.4 % Pen[place] % (Auto) 7.8 % Eos % (Auto) 1.5 % Baso % (Auto) 0.5 % Neut # (Auto) 3.39 (1.4-6.5) K/uL Lymph # (Auto) 2.00 (1.2-3.4) K/uL [place] # (Auto) 0.47 (0.24-0.82) K/uL Eos # (Auto) 0.09 (0-0.50) K/uL Baso # (Auto) 0.03 (0-0.2) K/uL Immature Gran # (Auto) 0.01 (0.00-0.02) K/uL Sodium 139 (136-145) mmol/L Potassium 4.1 (3.5-5.1) mmol/L Chloride 103 (98-107) mmol/L Carbon Dioxide 30 (21-32) mmol/L Anion Gap 6 (3-11) BUN 23 (6-23) mg/dl Creatinine 0.60 (0.6-1.2) mg/dl Est Cr Clr Drug Dosing 107.2 ml/min Est GFR ( Amer) 110.9 ml/min Est GFR (Non-Af Amer) 95.7 ml/min BUN/Creatinine Ratio 38.3 H (10-20) Glucose 116 H (70-99(Fasting)) mg/dl Calcium 9.2 (8.5-10.1) mg/dl Magnesium (1.7-2.4) mg/dl Total Bilirubin 0.7 (0.2-1.0) mg/dl AST 19 (13-39) U/L ALT 18 (7-52) U/L Alkaline Phosphatase 78 (34-104) U/L Total Protein 6.8 (6.0-8.3) gm/dl Albumin 4.2 (3.4-5.0) gm/dl Globulin 2.6 (2.5-4.0) gm/dl Albumin/Globulin Ratio 1.6 (0.9-2) Lipase 10 L (11-82) U/L SARS-CoV-2, RNA, NAAT (NEGATIVE) Blood Type A Positive Antibody Screen POSITIVE A 06/02/22 06/02/22 Range/Units 21:28 22:27 WBC (4.8-10.8) K/ul RBC (3.93-5.22) M/uL Hgb (12.0-16.0) g/dl Hct (34.1-44.9) % MCV (80.0-100.0) fL MCH (25.0-34.0) pg MCHC (32.0-36.0) g/dL RDW Std Deviation (36.4-46.3) fL RDW Coeff of Faizan (11.5-14.5) % Plt Count (130-400) K/uL MPV (9.4-12.3) fL Immature Gran % (Auto) % Neut % (Auto) % Lymph % (Auto) % Pennington % (Auto) % Eos % (Auto) % Baso % (Auto) % Neut # (Auto) (1.4-6.5) K/uL Lymph # (Auto) (1.2-3.4) K/uL Pennington # (Auto) (0.24-0.82) K/uL Eos # (Auto) (0-0.50) K/uL Baso # (Auto) (0-0.2) K/uL Immature Gran # (Auto) (0.00-0.02) K/uL Sodium (136-145) mmol/L Potassium (3.5-5.1) mmol/L Chloride (98-107) mmol/L Carbon Dioxide (21-32) mmol/L Anion Gap (3-11) BUN (6-23) mg/dl Creatinine (0.6-1.2) mg/dl Est Cr Clr Drug Dosing ml/min Est GFR ( Amer) ml/min Est GFR (Non-Af Amer) ml/min BUN/Creatinine Ratio (10-20) Glucose (70-99(Fasting)) mg/dl Calcium (8.5-10.1) mg/dl Magnesium 2.0 (1.7-2.4) mg/dl Total Bilirubin (0.2-1.0) mg/dl AST (13-39) U/L ALT (7-52) U/L Alkaline Phosphatase (34-104) U/L Total Protein (6.0-8.3) gm/dl Albumin (3.4-5.0) gm/dl Globulin (2.5-4.0) gm/dl Albumin/Globulin Ratio (0.9-2) Lipase (11-82) U/L SARS-CoV-2, RNA, NAAT NEGATIVE (NEGATIVE) Blood Type Antibody Screen Administered Medications Pantoprazole Sodium 40 mg/ (Dextrose) 100 mls @ 20 mls/hr IV Q5H TON Stop: 07/02/22 22:29 Last Admin: 06/02/22 23:17 Dose: 8 mg/hr, 20 mls/hr Documented By: JEANA Sodium Chloride (Nss 1000ml) 1,000 mls @ 125 mls/hr IV .Q8H TON Stop: 07/02/22 22:14 Last Admin: 06/02/22 23:18 Dose: 125 mls/hr Documented By: JEANA Discontinued Medications Hydromorphone HCl (Hydromorphone Inj 0.5 Mg/0.5 Ml Syr) 0.25 mg IV NOW STA Stop: 06/02/22 22:36 Last Admin: 06/02/22 22:51 Dose: 0.25 mg Documented By: MELONIE Hydromorphone HCl (Hydromorphone Inj 0.5 Mg/0.5 Ml Syr) 0.25 mg IV NOW STA Stop: 06/03/22 00:51 Last Admin: 06/03/22 01:04 Dose: 0.25 mg Documented By: JEANA Famotidine (Pepcid 20mg Iv Push) 20 mg in 5 mls @ 2.5 mls/min IV NOW STA Stop: 06/02/22 22:04 Last Admin: 06/02/22 22:38 Dose: 2.5 mls/min Documented By: MELONIE Pantoprazole Sodium (Protonix Bolus/Drip) 0 mls @ 1 mls/hr IV ONE STA Stop: 06/02/22 22:04 Last Admin: 06/02/22 22:52 Dose: Not Given Documented By: MELONIE Pantoprazole Sodium 80 mg/ (Dextrose) 120 mls @ 400 mls/hr IV NOW ONE Stop: 06/02/22 22:20 Last Infusion: 06/02/22 22:48 Dose: 0 mls/hr Documented By: Admin: 06/02/22 22:30 Dose: 400 mls/hr Documented By: MELONIE Sodium Chloride (Nss 1000ml) 500 mls @ 999 mls/hr IV .Q31M ONE Stop: 06/02/22 22:33 Last Infusion: 06/02/22 23:12 Dose: 0 mls/hr Documented By: Admin: 06/02/22 22:24 Dose: 999 mls/hr Documented By: MELONIE Desmopressin Acetate 30 mcg/ (Sodium Chloride) 57.5 mls @ 100 mls/hr IV 0000 ONE Stop: 06/03/22 00:34 Last Infusion: 06/03/22 01:42 Dose: 0 mls/hr Documented By: Admin: 06/03/22 00:43 Dose: 100 mls/hr Documented By: JEANA Ondansetron HCl (Ondansetron Inj 2 Mg/Ml 2 Ml Vial) 4 mg IV NOW STA Stop: 06/02/22 22:36 Last Admin: 06/02/22 22:51 Dose: 4 mg Documented By: MELONIE Discharge Plan Visit Data Chief Complaint: Rectal Bleed ED Provider: Malcolm Fitch Discharge Problem: UGIB (upper gastrointestinal bleed) Forms Stand Alone Forms: [facility] [employer] Prescriptions Prescriptions: No Action bupropion HCl [Wellbutrin XL] 300 mg Tablet Extended Release 24 Hr 300 mg PO QAM Rx Instructions: TAKE WITH 15O MG ER = 450MG EVERY MORNING bupropion HCl [Wellbutrin XL] 150 mg Tablet Extended Release 24 Hr 150 mg PO QAM Rx Instructions: TAKE WITH 300MG XL =450MG XL EVERY MORNING sumatriptan succinate 100 mg tablet 100 mg PO .DAILY/UD MDD 2TABS PRN (Reason: Migraine Headache) Rx Instructions: ONE TABLET, NEEDED FOR MIGRAINE, MAY REPEAT IN TWO HOURS. MAX DAILY = 2 TABS gabapentin 600 mg tablet 1,800 mg PO AMHS dextroamphetamine-amphetamine 30 mg tablet 30 mg PO BID morphine 15 mg tablet extended release 15 mg PO BID aripiprazole 10 mg tablet 10 mg PO QAM etodolac 500 mg tablet extended release 24 hr 1,000 mg PO DAILY Rx Instructions: TAKE WITH FOOD tizanidine 4 mg tablet 4 - 12 mg PO HS PRN (Reason: Muscle Spasm) metoclopramide HCl 10 mg tablet 10 mg PO AC vitamin B complex Tablet 1 tab PO DAILY multivitamin [Multiple Vitamins] Tablet 1 tab PO DAILY cholecalciferol (vitamin D3) 10 mcg (400 unit) Tablet 10 mcg PO DAILY Referrals Referrals: Sergio Peacock MD [Primary Care Provider] -
[2022-06-02] MEDS: PANTOprazole 40 MG in DEXTROSE 5% 100 ML IV SCH (23:17)
[2022-06-03] MEDS ORDERED: DESMOPRESSIN ACETATE 30 MCG in SODIUM CHLORIDE 0.9% 50 ML IV ONE
--- NOTE | 2022-06-03 00:16 | History & Physical Report ---
Date of Service June 02, 2022 Assessment & Plan (1) UGIB (upper gastrointestinal bleed): Plan: Symptoms x1 week, progressive, with active melanotic/loose stools with dark red blood - 7-8 BMs per day. Hemodynamically stable. Suspect recurrent bleeding ulcer, likely near Manolo-en-Y anastomosis as previously. Patient is chronically on NSAIDs which is the likely impetus for upper GI bleed. - started on Protonix 80mg bolus + gtt - continue gtt - given recent NSAID use (Naproxen), in addition to difficulty obtaining pRBCs in this patient with RBC antibodies, will give Desmopressin 30mcg IV dose x1 - Hgb 11.1 currently - trend H/H Q6H and transfuse for Hgb <8 (symptomatic) - s/p NSS 500cc bolus in ED - continue with LR @125cc/hr - consulted GI - appreciate recs - counseled on NO NSAIDs - FOBT all stools (2) Chronic back pain: Plan: Patient takes long-acting Morphine 15mg BID, with Naproxen for breakthrough pain. - NO NSAIDs as stated above - continue with Dilaudid 0.5mg IV Q3H (~50% of chronic Morphine dose) - graduated PRN pain regimen for breakthrough pain: Tylenol 1g IV Q8H; Dilaudid 0.25mg IV Q6H (3) Hypertension: Plan: Normotensive in ED. Hold home Amlodipine while NPO (4) Irritable bowel syndrome with constipation: Plan: Hold home Reglan, Plecanatide and supplements while NPO (5) Depression: Plan: Hold home Wellbutrin and Abilify while NPO (6) Attention deficit disorder (ADD): Plan: Hold home meds while NPO (7) Migraine: Plan: No headache currently. Hold home PRN Triptan while NPO Plan FEN/GI: NPO, LR @125cc/hr DVT Prophylaxis: SCDs, chemoppx contraindicated due to upper GI bleed Code Status: full code Disposition: med/tele History of Present Illness Chief Complaint: rectal bleed Primary Care Provider: Sergio Peacock MD Milagros Mcgraw is a 66yo female with PMHx significant for Manolo-en-Y gastric bypass (~15 years ago), previous upper GI bleeds (last in 2019, due to ulceration at Manolo-en-Y anastomosis), chronic upper back pain (f/w pain management, on Morphine 30MMEs daily as well as chronic Naproxen PRN), gastroparesis, HTN and depression. She presented to [facility] ED on 06/02 for concern for upper GI bleed. Patient has been taking Naproxen at least 3x per week for breakthrough back pain for some time, and has had progressively worsening epigastric pain with associated nausea over the last week; has been difficult to eat/drink without symptoms. Then started to have 7-8 loose melanotic BMs with dark blood over the last 2 days, with associated lightheadedness and dyspnea on exertion. Last BM was loose/melanotic/bloody and at 19:00. In the ED the patient was afebrile and hemodynamically stable on room air. Labs significant for Hgb 11.5 (baseline 13.2). Type/screen with positive antibodies (h/o RBC antibodies on type/screen). CBC/CMP/Lipase otherwise WNL. COVID-[address] A/P without acute pathology. In the ED the patient received NSS 500cc bolus and was started on NSS @125cc/hr. Also Pepcid 20mg IV x1, Protonix 80mg IV bolus + gtt, Zofran x1, and Dilaudid 0.25mg IV x1. Allergies Allergy/AdvReac Type Severity Reaction Status Date / Time Bactrim Allergy Unknown unknown Verified 03/20/13 21:21 sulfamethoxazole Allergy Unknown at age 20, Verified 06/03/22 00:12 can not remember what happened trimethoprim Allergy Unknown at age 20, Verified 06/03/22 00:12 can not remember what happened milk AdvReac Diarrhea Unverified 06/03/22 00:13 ice cream AdvReac Diarrhea Uncoded 06/03/22 00:14 Home Medications Medication Instructions Recorded Confirmed Type aripiprazole 10 mg tablet 10 mg PO QAM 06/03/22 06/03/22 History bupropion HCl 150 mg 24 hr tablet, 150 mg PO QAM 06/03/22 06/03/22 History extended release (Wellbutrin XL) bupropion HCl 300 mg 24 hr tablet, 300 mg PO QAM 06/03/22 06/03/22 History extended release (Wellbutrin XL) cholecalciferol (vitamin D3) 10 10 mcg PO DAILY 06/03/22 06/03/22 History mcg (400 unit) tablet dextroamphetamine-amphetamine 30 30 mg PO BID 06/03/22 06/03/22 History mg tablet etodolac 500 mg tablet,extended 1,000 mg PO DAILY 06/03/22 06/03/22 History release 24 hr gabapentin 600 mg tablet 1,800 mg PO AMHS 06/03/22 06/03/22 History metoclopramide HCl 10 mg tablet 10 mg PO AC 06/03/22 06/03/22 History morphine 15 mg tablet,extended 15 mg PO BID 06/03/22 06/03/22 History release multivitamin (Multiple Vitamins 1 tab PO DAILY 06/03/22 06/03/22 History tablet) sumatriptan succinate 100 mg tablet 100 mg PO .DAILY/UD PRN Migraine 06/03/22 06/03/22 History Headache tizanidine 4 mg tablet 4 - 12 mg PO HS PRN Muscle Spasm 06/03/22 06/03/22 History vitamin B complex 1 tab PO DAILY 06/03/22 06/03/22 History Past Med/Surg History Medical History Anemia Anxiety Attention deficit disorder (ADD) Bulging discs Chronic back pain Chronic pain Depression GI bleed hx of Glaucoma Hepatitis C hx - treated History of anesthesia reaction hx of waking up during procedures Hypertension Medical marijuana use Migraine Neuropathy Osteoarthritis Scoliosis Spinal stenosis Surgical History History of appendectomy History of bilateral breast reduction surgery History of bilateral cataract extraction History of bilateral tubal ligation History of cardiac cath 2005 @ [facility]---"fistula in heart between 2 valves"--no stents History of cholecystectomy History of colonoscopy History of esophagogastroduodenoscopy (EGD) History of eye surgery right---scar tissue from cataract sx History of fusion of cervical spine C4-C5--normal ROM History of lung biopsy right side--benign History of mandibular surgery 1978--wired shut History of open reduction and internal fixation (ORIF) procedure right ankle--hardware in place History of partial hysterectomy History of right shoulder replacement History of Manolo-en-Y gastric bypass History of tooth extraction History of total left knee replacement (TKR) x2 History of total right hip replacement History of wisdom tooth extraction Status post left foot surgery x7-hardware in place Status post right foot surgery x7--hardware in place Family History Mother Colorectal cancer Father Lung cancer Family history of esophageal cancer Brother Family history of esophageal cancer Grandfather (Maternal) Family history of esophageal cancer Other No family history of adverse response to anesthesia Social History Smoking Status: Never smoker Second Hand Exposure: Yes (parents smoked); Hx Alcohol Use: No Hx Substance Use: No Preferred Language: Ukrainian Communication Ability: Effective Printing Supervisor Required: No Beliefs That Will Affect Care: None Current Living Situation: Family Current Living Situation Comment: Lives with brother Other Information That Helps Us Care for You: No Feels Safe at Home: Yes Assistive Devices: Glasses Review of Systems Review of Systems: All systems reviewed & are unremarkable except as noted in HPI & below Physical Exam Physical Exam: General: A&Ox3. NAD. Cooperative. HEENT: Atraumatic, normocephalic. Pulm: CTAB A&P. -wheezes, -rales, -rhonchi. Symmetrical chest rise. No increase work of breathing. No respiratory distress. Cardiac: RRR, -mrg. Radial pulses intact and symmetrical. No LE edema. Abdominal: soft, non-distended, moderate epigastric tenderness without guarding/rebound, NA BS x 4 Skin: warm, dry, no rash Results & Data Results & Data ([facility]) Vital Signs (Past 12 Hours) Vital Signs Temp Pulse Resp BP Pulse Ox O2 Del Method 06/02/22 23:31 83 17 134/79 98 Room Air 06/02/22 21:35 96 Room Air 06/02/22 21:33 92 H 140/95 95 Room Air 06/02/22 21:29 36.5 C Code Status & VTE Plan VTE Prophylaxis Plan VTE Prophylaxis will be ordered: Yes Supervising Physician Co-Signing Physician Notes Attending addendum: I have physically seen this patient, have supervised the medical residents activities, and agree with the H&P unless as otherwise noted. Assessment and Plan: Upper GI bleed- Likely brought on by use of naproxen- DDAVP 30 mcg IV x1 Suspect anastomotic ulcer Received Protonix 80 mg IV bolus and then Protonix drip, which will be continued H&H every 6 hours N.p.o. LR at 125 mils per hour Vital signs stable at this time, will admit to monitored bed Consult to gastroenterology Remaining orders and notations as noted Resident Activity Tracking Resident Involvement: Resident Care Provided Care Provided: Adult [facility] (1) Depression Active/Remission status: remission status unspecified Depression Type: major depressive disorder Major depression recurrence: unspecified whether recurrent Qualified Code(s): F32.9 - Major depressive disorder, single episode, unspecified (2) Hypertension Hypertension type: essential hypertension Qualified Code(s): I10 - Essential (primary) hypertension
[2022-06-03] MEDS ORDERED: HYDROmorphone INJ 0.5 MG/0.5 ML SYR IV STA (00:50)
[2022-06-03] MEDS ORDERED: ACETAMINOPHEN 1,000 MG/100 ML VIAL IV PRN (03:12)
[2022-06-03] MEDS ORDERED: ONDANSETRON INJ 2 MG/ML 2 ML VIAL IV PRN (03:12)
[2022-06-03] MEDS: LACTATED RINGER'S 1,000 ML IV SCH ×3 (03:27→21:10)
[2022-06-03] MEDS: HYDROmorphone INJ 0.5 MG/0.5 ML SYR IV SCH ×6 (03:28→18:16)
[2022-06-03] MEDS: PANTOprazole 40 MG in DEXTROSE 5% 100 ML IV SCH ×4 (03:43→21:09)
[2022-06-03 04:44] LABS: Basophils # (auto) 0.03 K/uL (0-0.2); Basophils % (auto) 0.4 %; Eosinophils # (auto) 0.16 K/uL (0-0.50); Eosinophils % (auto) 2.1 %; Hematocrit (blood only) 29.2 % (34.1-44.9); Immature Granulocytes # (auto) 0.02 K/uL (0.00-0.02); Immature Granulocytes % (auto) 0.3 %; Lymphocytes # (auto) 2.12 K/uL (1.2-3.4); Lymphocytes % (auto) 28.3 %; Mean Corpuscular Hemoglobin 28.7 pg (25.0-34.0); Mean Corpuscular Hgb Conc 34.2 g/dL (32.0-36.0); Mean Corpuscular Volume 83.9 fL (80.0-100.0); Mean Platelet Volume 9.5 fL (9.4-12.3); Monocytes # (auto) 0.63 K/uL (0.24-0.82); Monocytes % (auto) 8.4 %; Neutrophils # (auto) 4.52 K/uL (1.4-6.5); Neutrophils % (auto) 60.5 %; Platelet Count 215 K/uL (130-400); RDW Coefficient of Variation 13.2 % (11.5-14.5); RDW Standard Deviation 39.6 fL (36.4-46.3); Red Blood Count 3.48 M/uL (3.93-5.22); White Blood Count 7.48 K/ul (4.8-10.8)
[2022-06-03 05:25] LABS: BUN Creatinine Ratio 37.3 (10-20); Calcium 7.9 mg/dl (8.5-10.1); Est GFR (African American) 111.5 ml/min; Est GFR (Non-African American) 96.2 ml/min; Magnesium 1.8 mg/dl (1.7-2.4); Potassium 3.8 mmol/L (3.5-5.1)
--- NOTE | 2022-06-03 07:23 | CT Scan Report ---
ABDOMEN AND PELVIS CT WITHOUT CONTRAST CT DOSE: 1039.90 mGy.cm HISTORY: Acute generalized abdominal pain with GI bleed gi bleed TECHNIQUE: Multiaxial CT images of the abdomen and pelvis were performed without contrast. A dose lo wering technique was utilized adhering to the principles of ALARA. COMPARISON STUDY: None. FINDINGS: Clear lung bases. No pneumatosis or pneumoperitoneum. The unenhanced spleen, moderately atr ophic pancreas and adrenal glands are unremarkable. Cholecystectomy. Unremarkable liver. Right kidney is within normal limits. There are approximately 3 nonobstructing calculi of the left kidney measuri ng up to 3 mm. No ureteral calculi or hydronephrosis identified. Unremarkable urinary bladder. Hyster ectomy. Aorta and IVC are unremarkable. There is no lymphadenopathy identified. Small hiatal hernia. Manolo-en- Y gastric bypass. No bowel obstruction or bowel wall thickening. Mild colonic diverticulosis with mil d to moderate colonic fecal retention. The appendix is reportedly surgically absent. Unremarkable sof t tissues. No acute fracture identified. Right hip total joint arthroplasty. Lumbar levoscoliosis. IMPRESSION: 1. No bowel obstruction or bowel wall thickening. 2. Mild colonic diverticulosis without acute diverticulitis. 3. Nonobstructing left renal calculi. 4. Additional findings as above. ACT 112: Negative or not required by law. The above report was generated using voice recognition software. It may contain grammatical, syntax o r spelling errors. Electronically signed by: Reji Christine M.D. 06/03/2022 7:22 AM
--- NOTE | 2022-06-03 08:36 | XRay Report ---
XR chest 1V portable CLINICAL HISTORY: sob, gi bleed TECHNIQUE: Single frontal radiograph of the chest was obtained. Comparison: Comparison is made to chest radiograph 03/20/2013 FINDINGS: No lines and tubes are seen. The cardiomediastinal silhouette is normal. The lungs are clear. No evid ence of pleural effusion or pneumothorax. IMPRESSION: No acute chest disease. ACT 112: Negative or not required by law. Electronically signed by: Compa Garsia M.D. 06/03/2022 8:34 AM
--- NOTE | 2022-06-03 09:29 | Gastrointestinal Consultation ---
Date of Consultation June 03, 2022 Assessment & Plan (1) Melena: (2) Anemia: Plan Suspect anastomotic ulcer given history of repeated ulcers and her consistent NSAID use. Of note, her PPI was recently stopped. -IV Protonix 40 mg BID -Keep NPO for EGD today -Continue to monitor H/H -Given this patient's repeated hospitalizations for GI bleeding, I would advise continuing a PPI indefinitely. -Avoidance of NSAIDs. Further recommendations pending results of EGD. Supervising Physician Co-Signing Physician Notes I personally evaluated the patient and agree with the findings as documented by Denise Saenz, PAC Exam: abd: soft, mild diffuse tenderness, nd Proceed with EGD. risks/benefits and procedure discussed with patient, who agrees to proceed History of Present Illness Reason for Consultation: Anemia, Melena Attending Physician: Bill Rodriguez History of Present Illness Patient is a 66 yo female with PMH of ADD, migraines, HTN, anxiety, IBS-C, depression, osteoarthritis, & repeated GI bleeds from an anastomotic ulcer given her history of Manolo-en-y bypass. Unfortunately, she notes that she was told to stop her Protonix recently. After that, she began having epigastric abdominal pain. She takes Aleve 3 times per week. She notes that over the past 1 week she started noticing melena. She notes that her symptoms worsened to the point of seeking medical care. Her last EGD was in 2019 and was unremarkable. She denies pertinent family history. She notes she is exhausted and has not been able to properly sleep. She has an H/H of 10.0/29.2. She denies ongoing melena. She has not moved her bowels since presenting to the hospital. No additional symptoms to report. She has been NPO since prior to midnight. Allergies Allergy/AdvReac Type Severity Reaction Status Date / Time Bactrim Allergy Unknown unknown Verified 03/20/13 21:21 sulfamethoxazole Allergy Unknown at age 20, Verified 06/03/22 00:12 can not remember what happened trimethoprim Allergy Unknown at age 20, Verified 06/03/22 00:12 can not remember what happened milk AdvReac Diarrhea Unverified 06/03/22 00:13 ice cream AdvReac Diarrhea Uncoded 06/03/22 00:14 Home Medications Medication Instructions Recorded Confirmed Type aripiprazole 10 mg tablet 10 mg PO QAM 06/03/22 06/03/22 History bupropion HCl 150 mg 24 hr tablet, 150 mg PO QAM 06/03/22 06/03/22 History extended release (Wellbutrin XL) bupropion HCl 300 mg 24 hr tablet, 300 mg PO QAM 06/03/22 06/03/22 History extended release (Wellbutrin XL) cholecalciferol (vitamin D3) 10 10 mcg PO DAILY 06/03/22 06/03/22 History mcg (400 unit) tablet dextroamphetamine-amphetamine 30 30 mg PO BID 06/03/22 06/03/22 History mg tablet etodolac 500 mg tablet,extended 1,000 mg PO DAILY 06/03/22 06/03/22 History release 24 hr gabapentin 600 mg tablet 1,800 mg PO AMHS 06/03/22 06/03/22 History metoclopramide HCl 10 mg tablet 10 mg PO AC 06/03/22 06/03/22 History morphine 15 mg tablet,extended 15 mg PO BID 06/03/22 06/03/22 History release multivitamin (Multiple Vitamins 1 tab PO DAILY 06/03/22 06/03/22 History tablet) sumatriptan succinate 100 mg tablet 100 mg PO .DAILY/UD PRN Migraine 06/03/22 06/03/22 History Headache tizanidine 4 mg tablet 4 - 12 mg PO HS PRN Muscle Spasm 06/03/22 06/03/22 History vitamin B complex 1 tab PO DAILY 06/03/22 06/03/22 History Patient History Medical History Anemia Anxiety Attention deficit disorder (ADD) Bulging discs Chronic back pain Chronic pain Depression GI bleed hx of Glaucoma Hepatitis C hx - treated History of anesthesia reaction hx of waking up during procedures Hypertension Medical marijuana use Migraine Neuropathy Osteoarthritis Scoliosis Spinal stenosis Surgical History History of appendectomy History of bilateral breast reduction surgery History of bilateral cataract extraction History of bilateral tubal ligation History of cardiac cath 2005 @ [facility]---"fistula in heart between 2 valves"--no stents History of cholecystectomy History of colonoscopy History of esophagogastroduodenoscopy (EGD) History of eye surgery right---scar tissue from cataract sx History of fusion of cervical spine C4-C5--normal ROM History of lung biopsy right side--benign History of mandibular surgery 1978--wired shut History of open reduction and internal fixation (ORIF) procedure right ankle--hardware in place History of partial hysterectomy History of right shoulder replacement History of Manolo-en-Y gastric bypass History of tooth extraction History of total left knee replacement (TKR) x2 History of total right hip replacement History of wisdom tooth extraction Status post left foot surgery x7-hardware in place Status post right foot surgery x7--hardware in place Family History Mother Colorectal cancer Father Lung cancer Family history of esophageal cancer Brother Family history of esophageal cancer Grandfather (Maternal) Family history of esophageal cancer Other No family history of adverse response to anesthesia Social History Smoking Status: Never smoker Second Hand Exposure: Yes (parents smoked); Hx Alcohol Use: No Hx Substance Use: No Preferred Language: Kazakh Communication Ability: Effective Manager Skilled Required: No Beliefs That Will Affect Care: None Current Living Situation: Family Current Living Situation Comment: Lives with brother Other Information That Helps Us Care for You: No Feels Safe at Home: Yes Assistive Devices: Glasses Review of Systems Constitutional: no fever and no chills Respiratory: no cough and no dyspnea Cardiovascular: no chest pain Gastrointestinal: + melena (improved since admission) Integumentary: no problem reported Psychiatric: no problem reported Hematologic / Lymphatic: no unexplained weight loss Physical Exam Constitutional: well developed Respiratory: normal respiratory effort Cardiovascular: Rate/Rhythm: regular rate Gastrointestinal (Abdomen): normal bowel sounds, soft, nontender, no hepatosplenomegaly Musculoskeletal: Head/Neck/Chest: normocephalic Psychiatric: Orientation: alert and oriented x 3 Results & Data ([facility]) Vital Signs (Past 12 Hours) Vital Signs Temp Pulse Pulse Resp BP BP Pulse Ox 06/03/22 08:00 36.6 C 80 18 122/61 93 06/03/22 04:44 88 06/03/22 04:44 06/03/22 04:44 36.4 C L 110 H 16 151/84 H 96 06/03/22 02:31 92 H 17 130/73 96 06/03/22 02:00 92 H 18 116/79 95 06/03/22 01:00 92 H 16 124/55 L 97 06/03/22 00:30 81 23 138/78 95 06/02/22 23:31 83 17 134/79 98 06/02/22 21:35 96 06/02/22 21:33 92 H 140/95 95 06/02/22 21:29 36.5 C O2 Del Method 06/03/22 08:00 Room Air 06/03/22 04:44 06/03/22 04:44 Room Air 06/03/22 04:44 Room Air 06/03/22 02:31 Room Air 06/03/22 02:00 Room Air 06/03/22 01:00 Room Air 06/03/22 00:30 Room Air 06/02/22 23:31 Room Air 06/02/22 21:35 Room Air 06/02/22 21:33 Room Air 06/02/22 21:29 PG Care Time/CCT Total # of Minutes Spent Total Time Spent with Patient: Total time spent is greater than 50% in coordination of care (as documented) at patient's floor/unit and/or counseling patient: Coding Level of Care Code 78298 Initial Inpt Care Lvl 3 Diagnoses Melena K92.1 Anemia D62 Anemia type: other cause Other causes of anemia: acute posthemorrhagic (1) Anemia Anemia type: other cause Other causes of anemia: acute posthemorrhagic Qualified Code(s): D62 - Acute posthemorrhagic anemia
[2022-06-03 10:02] LABS: Hematocrit (blood only) 26.4 % (34.1-44.9)
--- NOTE | 2022-06-03 11:21 | Anesthesiology Consultation ---
Date of Service June 03, 2022 Assessment & Plan (1) Encounter for pre-operative examination: Chart Review Chart Review: Acceptable Risk for Surgery and Patient NOT seen in Pre Admission Testing Consults Requested none History Surgery Operation Date: 06/03/22 16:30 Proposed Procedures p Esophagogastroduodenoscopy Dr. Montgomery - Anders Montgomery MD Height/Weight Height: 5 ft 4 in Weight: 99.6 kg Allergies Allergy/AdvReac Type Severity Reaction Status Date / Time Bactrim Allergy Unknown unknown Verified 03/20/13 21:21 sulfamethoxazole Allergy Unknown at age 20, Verified 06/03/22 00:12 can not remember what happened trimethoprim Allergy Unknown at age 20, Verified 06/03/22 00:12 can not remember what happened milk AdvReac Diarrhea Unverified 06/03/22 00:13 ice cream AdvReac Diarrhea Uncoded 06/03/22 00:14 Medications Home Medications Medication Instructions Recorded Confirmed Last Taken aripiprazole 10 mg tablet 10 mg PO QAM 06/03/22 06/03/22 Unknown bupropion HCl 150 mg 24 hr tablet, 150 mg PO QAM 06/03/22 06/03/22 Unknown extended release (Wellbutrin XL) bupropion HCl 300 mg 24 hr tablet, 300 mg PO QAM 06/03/22 06/03/22 Unknown extended release (Wellbutrin XL) cholecalciferol (vitamin D3) 10 10 mcg PO DAILY 06/03/22 06/03/22 Unknown mcg (400 unit) tablet dextroamphetamine-amphetamine 30 30 mg PO BID 06/03/22 06/03/22 Unknown mg tablet etodolac 500 mg tablet,extended 1,000 mg PO DAILY 06/03/22 06/03/22 Unknown release 24 hr gabapentin 600 mg tablet 1,800 mg PO AMHS 06/03/22 06/03/22 Unknown metoclopramide HCl 10 mg tablet 10 mg PO AC 06/03/22 06/03/22 Unknown morphine 15 mg tablet,extended 15 mg PO BID 06/03/22 06/03/22 Unknown release multivitamin (Multiple Vitamins 1 tab PO DAILY 06/03/22 06/03/22 Unknown tablet) sumatriptan succinate 100 mg tablet 100 mg PO .DAILY/UD PRN Migraine 06/03/22 06/03/22 Unknown Headache tizanidine 4 mg tablet 4 - 12 mg PO HS PRN Muscle Spasm 06/03/22 06/03/22 Unk nown vitamin B complex 1 tab PO DAILY 06/03/22 06/03/22 Unknown Active Medications Generic Name Dose Route Start Last Admin Trade Name Annabel PRN Reason Stop Dose Admin Hydromorphone HCl 0.5 mg 06/03/22 03:30 06/03/22 08:48 Hydromorphone Inj 0.5 Mg/0.5 Ml Syr IV 06/17/22 03:11 0.5 mg Q3H TON Administration Pantoprazole Sodium 40 mg/ 100 mls @ 20 mls/hr 06/02/22 22:30 06/03/22 08:52 Dextrose IV 07/02/22 22:29 8 mg/hr Q5H TON 20 mls/hr Administration 8 MG/HR Lactated Ringer's 1,000 mls @ 125 mls/hr 06/03/22 03:12 06/03/22 03:27 Lr IV 07/03/22 03:11 125 mls/hr .Q8H TON Administration NPO Date Last Intake of Fluids: 06/02/22 Time Last Intake of Fluids: 19:30 Date Last Intake of Solids: 06/02/22 Time Last Intake of Solids: 17:00 Past Medical History Medical History Anemia Anxiety Attention deficit disorder (ADD) Bulging discs Chronic back pain Chronic pain Depression GI bleed hx of Glaucoma Hepatitis C hx - treated History of anesthesia reaction hx of waking up during procedures Hypertension Medical marijuana use Migraine Neuropathy Osteoarthritis Scoliosis Spinal stenosis Past Family History Family History Mother Colorectal cancer Father Lung cancer Family history of esophageal cancer Brother Family history of esophageal cancer Grandfather (Maternal) Family history of esophageal cancer Other No family history of adverse response to anesthesia Past Surgical History Surgical History History of appendectomy History of bilateral breast reduction surgery History of bilateral cataract extraction History of bilateral tubal ligation History of cardiac cath 2005 @ [facility]---"fistula in heart between 2 valves"--no stents History of cholecystectomy History of colonoscopy History of esophagogastroduodenoscopy (EGD) History of eye surgery right---scar tissue from cataract sx History of fusion of cervical spine C4-C5--normal ROM History of lung biopsy right side--benign History of mandibular surgery 1978--wired shut History of open reduction and internal fixation (ORIF) procedure right ankle--hardware in place History of partial hysterectomy History of right shoulder replacement History of Manolo-en-Y gastric bypass History of tooth extraction History of total left knee replacement (TKR) x2 History of total right hip replacement History of wisdom tooth extraction Status post left foot surgery x7-hardware in place Status post right foot surgery x7--hardware in place Social History Smoking Status: Never smoker Hx Alcohol Use: No Hx Substance Use: No substance use type: marijuana Last Used Substance: Days (ago) Last Used Substance Other:: uses daily for sleep Physical Exam Vital Signs Last Vital Signs Temp 36.6 C 06/03/22 11:01 Pulse 87 06/03/22 11:01 Resp 16 06/03/22 11:01 BP 123/70 06/03/22 11:01 Pulse Ox 94 06/03/22 11:01 O2 Del Method 06/03/22 11:01 Testing Laboratory Results 06/03/22 09:38 06/03/22 04:01 Blood Type A Positive 06/02/22 21:28 Antibody Screen POSITIVE A 06/02/22 21:28 Electrocardiogram Date: 06/02/22 Findings: + NSR @ (87) possible anterior infarct - similar to 2019 EKG Chest X-Ray Date: 06/02/22 XR chest 1V portable CLINICAL HISTORY: sob, gi bleed TECHNIQUE: Single frontal radiograph of the chest was obtained. Comparison: Comparison is made to chest radiograph 03/20/2013 FINDINGS: No lines and tubes are seen. The cardiomediastinal silhouette is normal. The lungs are clear. No evidence of pleural effusion or pneumothorax. IMPRESSION: No acute chest disease. ACT 112: Negative or not required by law. Electronically signed by: Compa Garsia M.D. 06/03/2022 8:34 AM Dictated:06/03/22 0832 Other Testing ABDOMEN AND PELVIS CT WITHOUT CONTRAST CT DOSE: 1039.90 mGy.cm HISTORY: Acute generalized abdominal pain with GI bleed gi bleed TECHNIQUE: Multiaxial CT images of the abdomen and pelvis were performed without contrast. A dose lowering technique was utilized adhering to the principles of ALARA. COMPARISON STUDY: None. FINDINGS: Clear lung bases. No pneumatosis or pneumoperitoneum. The unenhanced spleen, moderately atrophic pancreas and adrenal glands are unremarkable. Cholecystectomy. Unremarkable liver. Right kidney is within normal limits. There are approximately 3 nonobstructing calculi of the left kidney measuring up to 3 mm. No ureteral calculi or hydronephrosis identified. Unremarkable urinary bladder. Hysterectomy. Aorta and IVC are unremarkable. There is no lymphadenopathy identified. Small hiatal hernia. Manolo-en-Y gastric bypass. No bowel obstruction or bowel wall thickening. Mild colonic diverticulosis with mild to moderate colonic fecal retention. The appendix is reportedly surgically absent. Unremarkable soft tissues. No acute fracture identified. Right hip total joint arthroplasty. Lumbar levoscoliosis. IMPRESSION: 1. No bowel obstruction or bowel wall thickening. 2. Mild colonic diverticulosis without acute diverticulitis. 3. Nonobstructing left renal calculi. 4. Additional findings as above. ACT 112: Negative or not required by law. The above report was generated using voice recognition software. It may contain grammatical, syntax or spelling errors. Electronically signed by: Reji Christine M.D. 06/03/2022 7:22 AM Dictated:06/03/22 0714 Transcribed: 06/03/22 0714
--- NOTE | 2022-06-03 11:42 | XCELERA ---
[id number] \\[id number]
[2022-06-03] MEDS ORDERED: fentaNYL citrate 100 MCG/2 ML VIAL ONE (11:56)
[2022-06-03] MEDS ORDERED: PROPOFOL IV EMULSION 10 MG/ML 20 ML VIAL IV ONE ×2 (12:01→12:13)
[2022-06-03] MEDS ORDERED: ONDANSETRON INJ 2 MG/ML 2 ML VIAL ONE (12:01)
[2022-06-03] MEDS ORDERED: LIDOCAINE 2% MPF LOCAL 5 ML VIAL INFIL ONE (12:01)
--- NOTE | 2022-06-03 12:22 | GI REPORT ---
Patient Name: Milagros Mcgraw Procedure Date: 06/03/2022 11:35 AM Date of : 1955 Admit Type: Inpatient Age: 66 Gender: Female Attending MD: Anders Montgomery MD, Procedure: Upper GI endoscopy Providers: Anders Montgomery MD Referring MD: Sergio Peacock Md Indications: Hematochezia Medicines: Monitored Anesthesia Care Complications: No immediate complications. Estimated blood loss: None. Estimated Blood Loss: Estimated blood loss: none. Procedure: Pre-Anesthesia Assessment: - Prior Anticoagulants: The patient has taken no anticoagulant or antiplatelet agents. - ASA Grade Assessment: II - A patient with mild systemic disease. After obtaining informed consent, the endoscope was passed under direct vision. Throughout the procedure, the patient's blood pressure, pulse, and oxygen saturations were monitored continuously. The Endoscope was introduced through the mouth, and advanced to the second part of duodenum. The upper GI endoscopy was accomplished without difficulty. The patient tolerated the procedure well. Findings: The examined esophagus was normal. One linear gastric ulcer with a visible vessel was found at the anastomosis. Area was successfully injected with 4 mL of a 0.1 mg/mL solution of epinephrine for hemostasis. For hemostasis, two hemostatic clips were successfully placed. 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 There was no bleeding at the end of the procedure. The examined duodenum was normal. Impression: - Normal esophagus. - Gastric ulcer with a visible vessel. Injected. Clips were placed. 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 - Normal examined duodenum. - No specimens collected. Recommendation: - [facility]. - Clear liquid diet today. advance as tolerated if stable tonight. -protonix 40 mg BID for at least 3 months -avoid NSAIDS -repeat EGD in 3 months Anders Montgomery MD 06/03/2022 12:22:23 PM This report has been signed electronically. Note Initiated On: 06/03/2022 11:35 AM Number of Addenda: 0 I attest to the content of the Intraoperative Record and orders documented therein, exceptions below {[id number]}
--- NOTE | 2022-06-03 12:35 | Anesthesiology Progress Note ---
Date of Service June 03, 2022 Anesthesia Post Procedure Vital Signs Vital Signs: Temp Pulse Pulse Resp BP BP Pulse Ox 06/03/22 12:32 89 16 146/78 H 96 06/03/22 12:15 79 16 137/61 98 06/03/22 11:01 36.6 C 87 16 123/70 94 06/03/22 08:00 36.6 C 80 18 122/61 93 06/03/22 04:44 88 06/03/22 04:44 06/03/22 04:44 36.4 C L 110 H 16 151/84 H 96 06/03/22 02:31 92 H 17 130/73 96 06/03/22 02:00 92 H 18 116/79 95 06/03/22 01:00 92 H 16 124/55 L 97 06/03/22 00:30 81 23 138/78 95 06/02/22 23:31 83 17 134/79 98 06/02/22 21:35 96 06/02/22 21:33 92 H 140/95 95 06/02/22 21:29 36.5 C O2 Del Method 06/03/22 12:32 Room Air 06/03/22 12:15 Room Air 06/03/22 11:01 Room Air 06/03/22 08:00 Room Air 06/03/22 04:44 06/03/22 04:44 Room Air 06/03/22 04:44 Room Air 06/03/22 02:31 Room Air 06/03/22 02:00 Room Air 06/03/22 01:00 Room Air 06/03/22 00:30 Room Air 06/02/22 23:31 Room Air 06/02/22 21:35 Room Air 06/02/22 21:33 Room Air 06/02/22 21:29 Pain Intensity Abdomen: Pain Intensity: 3 Transfer of Care Handoff Completed per policy Notes Mental Status: alert / awake / arousable Patient Amnestic to Procedure: Yes Nausea / Vomiting: adequately controlled Pain: adequately controlled Airway Patency, RR, SpO2: stable & adequate BP & HR: stable & adequate Hydration State: stable & adequate Anesthetic Complications: no major complications apparent and Pt Satisfied with anesthetic care Notes: The patient has some abdominal pain related to the procedure. Her vital signs are stable.
--- NOTE | 2022-06-03 12:43 | Electrocardiogram Report ---
Test Reason : Blood Pressure : / mmHG Vent. Rate : 087 BPM Atrial Rate : 087 BPM P-R Int : 166 ms QRS Dur : 074 ms QT Int : 340 ms P-R-T Axes : 034 -15 021 degrees QTc Int : 409 ms Normal sinus rhythm Poor R wave progression, consider anterior GA vs. lead placement vs. LVH Abnormal ECG When compared with ECG of 04-MAR-2020 08:55, No significant change was found Confirmed by Zach Aceves ([id number]) on 06/03/2022 12:43:01 PM Referred By: REFERRED SELF Confirmed By:Zach Aceves
[2022-06-03] MEDS: HYDROmorphone INJ 0.5 MG/0.5 ML SYR IV PRN ×2 (14:22→21:21)
[2022-06-03 15:38] LABS: Hematocrit (blood only) 25.8 % (34.1-44.9); Hemoglobin 8.9 g/dl (12.0-16.0)
--- NOTE | 2022-06-03 20:50 | Hospitalist Progress Note ---
Date of Service June 03, 2022 Assessment & Plan (1) UGIB (upper gastrointestinal bleed): Plan: 2nd to gastric ulcer w/ visible vessel. s/p epi and clips x [address] Montgomery cont PPI twice daily IV then PO at discharge 2nd NSAIDs check Fe studies, B12, folate in am NO FURTHER NSAIDS Check CBC am (2) Chronic back pain: Plan: Patient takes long-acting Morphine 15mg BID Cont such but stop all NSAID use (3) Hypertension: Plan: cont to hold norvasc for now (4) Irritable bowel syndrome with constipation: Plan: Hold home Reglan, Plecanatide and supplements for now (5) Depression: Plan: resumed wellbutrin/abilify/stimulant meds (6) Attention deficit disorder (ADD): Plan: resume amphetamine/dextroamphetamine (7) Migraine: Plan: triptans prn (8) Acute blood loss anemia: Plan: 2nd to #1 cont to trend H/H check Fe studies, B12, folate in am cont PPI twice daily for gastric ulcer Plan start clears cont iv fluids advance diet in am if tolerating clears Admission and Anticipated Discharge Date Admission Date: June 02, 2022 Subjective saw patient post-EGD c/o mild stomach discomfort but has appetite and looking forward to liquids no nausea or emesis no BRBPR Review of Systems Review of Systems: gen - feels good, no fever cv- no chest pain pulm - no dyspnea Physical Exam Physical Exam: gen - obese, NAD mouth - MMM neck - no JVD heart - RRR, s1, s2, 1/6 STEPHANIE LSB lungs - CTA b/l abd - soft NT ND BS+ ext - no edema, pulses 2+ b/l psych - a/o x 3 Results & Data Results & [facility] ([facility]) Vital Signs (Past 12 Hours) Vital Signs Temp Pulse Resp BP Pulse Ox O2 Del Method 06/03/22 19:13 36.6 C 82 18 160/79 H 96 Room Air 06/03/22 16:00 36.5 C 73 18 148/75 H 96 Room Air 06/03/22 12:45 85 16 146/73 H 94 Room Air 06/03/22 12:32 89 16 146/78 H 96 Room Air 06/03/22 12:15 79 16 137/61 98 Room Air 06/03/22 11:01 36.6 C 87 16 123/70 94 Room Air Laboratory Results Laboratory Results - last 24 hr 06/03/22 15:16 WBC RBC Hgb 8.9 L Hct 25.8 L MCV MCH MCHC RDW Std Deviation RDW Coeff of Faizan Plt Count MPV Sodium Potassium Chloride Carbon Dioxide Anion Gap BUN Creatinine Est Cr Clr Drug Dosing Est GFR ( Amer) Est GFR (Non-Af Amer) BUN/Creatinine Ratio Glucose Calcium Iron TIBC Unsaturated IBC Transferrin % Sat Ferritin Vitamin B12 25-OH Vitamin D Total Folate PG Care Time/CCT Total # of Minutes Spent Total Time Spent with Patient: Total time spent is greater than 50% in coordination of care (as documented) at patient's floor/unit and/or counseling patient: Coding Level of Care Code 93886 SUB INP/OBS CARE MIN Diagnoses UGIB (upper gastrointestinal bleed) K92.2 Chronic back pain M54.9; G89.29 Hypertension I10 Hypertension type: essential hypertension Irritable bowel syndrome with constipation K58.1 Depression F32.9 Depression Type: major depressive disorder Major depression recurrence: unspecified whether recurrent Active/Remission status: remission status unspecified Attention deficit disorder (ADD) F98.8 Migraine G43.909 Acute blood loss anemia D62 (1) Hypertension Hypertension type: essential hypertension Qualified Code(s): I10 - Essential (primary) hypertension (2) Depression Depression Type: major depressive disorder Major depression recurrence: unspecified whether recurrent Active/Remission status: remission status unspecified Qualified Code(s): F32.9 - Major depressive disorder, single episode, unspecified
[2022-06-03] MEDS ORDERED: SUMAtriptan succinate 100 MG TAB PO PRN (20:54)
[2022-06-03] MEDS: MoRPHine SULFATE CR 15 MG TABCR PO SCH (22:36)
[2022-06-03] MEDS: GABAPENTIN 600 MG TAB PO SCH (22:36)
[2022-06-03] MEDS: ARIPiprazole 10 MG TAB PO SCH (22:37)
[2022-06-03] MEDS: AMPHETAMINE ASP/SULF/DEXTRAMPH 10 MG TAB PO SCH (22:46)
[2022-06-04] MEDS: PANTOprazole 40 MG in DEXTROSE 5% 100 ML IV SCH ×3 (00:01→09:27)
[2022-06-04] MEDS: LACTATED RINGER'S 1,000 ML IV SCH (04:43)
--- NOTE | 2022-06-04 06:18 | Billing Data ---
Date of Service June 04, 2022 Coding Level of Care Code 08271 INT INP/OBS CARE
[2022-06-04 07:18] LABS: Hemoglobin 8.7 g/dl (12.0-16.0); Mean Corpuscular Hemoglobin 28.6 pg (25.0-34.0); Mean Corpuscular Hgb Conc 34.8 g/dL (32.0-36.0); Mean Corpuscular Volume 82.2 fL (80.0-100.0); Mean Platelet Volume 9.2 fL (9.4-12.3); Platelet Count 166 K/uL (130-400); RDW Coefficient of Variation 12.8 % (11.5-14.5); RDW Standard Deviation 38.5 fL (36.4-46.3); Red Blood Count 3.04 M/uL (3.93-5.22); White Blood Count 5.28 K/ul (4.8-10.8)
[2022-06-04 07:47] LABS: BUN Creatinine Ratio 21.3 (10-20); Calcium 7.9 mg/dl (8.5-10.1); Creatinine Clr Calc Pharmacy 135.7 ml/min; Est GFR (African American) 120.1 ml/min; Est GFR (Non-African American) 103.7 ml/min; Potassium 3.6 mmol/L (3.5-5.1)
[2022-06-04 07:54] LABS: Ferritin 27.1 ng/ml (8-388)
[2022-06-04] MEDS: CHOLECALCIFEROL 400 UNITS 10 MCG TAB PO SCH (07:59)
[2022-06-04] MEDS: METOCLOPRAMIDE HCL 10 MG TABLET PO SCH ×3 (07:59→17:14)
[2022-06-04] MEDS: VITAMIN B COMPLEX TAB PO SCH (07:59)
[2022-06-04] MEDS: buPROPion XL 150 MG TABCR PO SCH (07:59)
[2022-06-04 08:00] LABS: Vitamin B12 906 pg/ml (180-914)
[2022-06-04] MEDS: buPROPion XL 300 MG TABCR PO SCH (08:00)
[2022-06-04] MEDS: GABAPENTIN 600 MG TAB PO SCH ×2 (08:00→20:32)
[2022-06-04 08:03] LABS: Vitamin D, 25 Hydrox 23.4 ng/ml (30-100)
[2022-06-04] MEDS: AMPHETAMINE ASP/SULF/DEXTRAMPH 10 MG TAB PO SCH ×2 (08:05→20:30)
[2022-06-04] MEDS: MoRPHine SULFATE CR 15 MG TABCR PO SCH ×2 (08:05→20:35)
--- NOTE | 2022-06-04 09:58 | Communication Note ---
Date of Service: June 04, 2022 Patient is a 66 yo female who underwent an EGD on 06/03/22 and was found to have a gastric ulcer. At the present time, I would advise Protonix 40 mg BID, complete avoidance of NSAIDs, and an EGD in 3 months. Our outpatient office will be in contact with patient to arrange a repeat EGD in 3 months. This patient should remain on PPI therapy indefinitely given her history of repeated GI bleeds.
[2022-06-04] MEDS ORDERED: IRON SUCROSE 300 MG in SODIUM CHLORIDE 0.9% 250 ML IV ONE (10:00)
[2022-06-04] MEDS: PANTOprazole 40 MG TAB PO SCH ×2 (13:17→20:32)
[2022-06-04 15:54] LABS: Hematocrit (blood only) 26.6 % (34.1-44.9); Hemoglobin 9.2 g/dl (12.0-16.0)
--- NOTE | 2022-06-04 18:12 | XRay Report ---
XR abdomen min 2V CLINICAL HISTORY: abd pain, gastric ulcer, constipation TECHNIQUE: 2 views of the abdomen were obtained. Comparison: Comparison is made to CT abdomen pelvis 06/02/2022 FINDINGS: Scattered surgical clips are seen within the abdomen. Degenerative changes are seen in the visualized skeleton. Scoliosis noted. Right hip total arthroplasty is seen. The bowel gas pattern is nonobstruc tive. Small stool burden is seen. IMPRESSION: Small stool burden without evidence of obstruction or fecal impaction. ACT 112: Negative or not required by law. Electronically signed by: Compa Garsia M.D. 06/04/2022 6:09 PM
--- NOTE | 2022-06-04 20:21 | Hospitalist Progress Note ---
Date of Service June 04, 2022 Assessment & Plan (1) UGIB (upper gastrointestinal bleed): Plan: 2nd to gastric ulcer w/ visible vessel. s/p epi and clips x [address] Montgomery 2nd NSAIDs in setting of gastric bypass status cont PPI BID add carafate 1mg QID due to mild post-prandial pain KUB x-ray checked to ensure no free air or significant constipation - neg for both H/H stable this afternoon despite her abd complaints Check CBC am (2) Chronic back pain: Plan: Patient takes long-acting Morphine 15mg BID Cont such but stop all NSAID use (3) Hypertension: Plan: resume amlodipine (4) Irritable bowel syndrome with constipation: Plan: resumed home Reglan (5) Depression: Plan: resumed wellbutrin/abilify/stimulant meds (6) Attention deficit disorder (ADD): Plan: resumed amphetamine/dextroamphetamine (7) Migraine: Plan: triptans prn (8) Acute blood loss anemia: Plan: 2nd to #1 cont to trend H/H Fe studies c/w Fe deficiency as below cont PPI twice daily for gastric ulcer add carafate QID (9) Iron deficiency: Plan: venofer 300mg IV x 1 today then repeat tomorrow will need another run in a couple of weeks as outpatient Plan allow diet as tolerated watch overnight for ongoing pain and to trend h/h if stable h/h and pain improved d/c home tomorrow with close f/u next week with PCP and later on GI Admission and Anticipated Discharge Date Admission Date: June 02, 2022 Subjective patient with mild post-prandial stomach discomfort this is despite PPI twice daily able to keep the food down - no vomiting no BRBPR otherwise feeling well tele wnl overnight Review of Systems Review of Systems: gen - no fevers, good energy cv - no chest pain pulm - no dyspnea GI - no nausea Physical Exam Physical Exam: gen - obese, NAD mouth - MMM neck - no JVD heart - RRR, s1, s2, 1/6 STEPHANIE LSB lungs - CTA b/l abd - soft NT ND BS+; same exam as yesterday, no changes ext - no edema, pulses 2+ b/l psych - a/o x 3 Results & Data Results & Data ([facility]) Vital Signs (Past 12 Hours) Vital Signs Temp Pulse Resp BP Pulse Ox O2 Del Method 06/04/22 19:08 36.5 C 90 16 160/81 H 92 Room Air 06/04/22 15:51 37.0 C 92 H 18 144/79 H 91 Room Air 06/04/22 11:23 36.8 C 86 18 132/82 93 Room Air Laboratory Results Laboratory Results - last 24 hr 06/04/22 06/04/22 06/04/22 06:52 06:52 06:52 WBC 5.28 RBC 3.04 L Hgb 8.7 L Hct 25.0 L MCV 82.2 MCH 28.6 MCHC 34.8 RDW Std Deviation 38.5 RDW Coeff of Faizan 12.8 Plt Count 166 MPV 9.2 L Sodium 132 L Potassium 3.6 Chloride 99 Carbon Dioxide 28 Anion Gap 5 BUN 10 Creatinine 0.47 L Est Cr Clr Drug Dosing 135.7 Est GFR ( Amer) 120.1 Est GFR (Non-Af Amer) 103.7 BUN/Creatinine Ratio 21.3 H Glucose 116 H Calcium 7.9 L Iron 61 TIBC 281 Unsaturated IBC 220 Transferrin % Sat 22 Ferritin 27.1 Vitamin B12 906 25-OH Vitamin D Total 23.4 L Folate > 22.30 06/04/22 15:32 WBC RBC Hgb 9.2 L Hct 26.6 L MCV MCH MCHC RDW Std Deviation RDW Coeff of Faizan Plt Count MPV Sodium Potassium Chloride Carbon Dioxide Anion Gap BUN Creatinine Est Cr Clr Drug Dosing Est GFR ( Amer) Est GFR (Non-Af Amer) BUN/Creatinine Ratio Glucose Calcium Iron TIBC Unsaturated IBC Transferrin % Sat Ferritin Vitamin B12 25-OH Vitamin D Total Folate PG Care Time/CCT Total # of Minutes Spent Total Time Spent with Patient: Total time spent is greater than 50% in coordination of care (as documented) at patient's floor/unit and/or counseling patient: Coding Level of Care Code 98493 SUB INP/OBS CARE 2/35MIN Diagnoses UGIB (upper gastrointestinal bleed) K92.2 Chronic back pain M54.9; G89.29 Hypertension I10 Hypertension type: essential hypertension Irritable bowel syndrome with constipation K58.1 Depression F32.9 Active/Remission status: remission status unspecified Depression Type: major depressive disorder Major depression recurrence: unspecified whether recurrent Attention deficit disorder (ADD) F98.8 Migraine G43.909 Acute blood loss anemia D62 Iron deficiency E61.1 (1) Depression Active/Remission status: remission status unspecified Depression Type: major depressive disorder Major depression recurrence: unspecified whether recurrent Qualified Code(s): F32.9 - Major depressive disorder, single episode, unspecified (2) Hypertension Hypertension type: essential hypertension Qualified Code(s): I10 - Essential (primary) hypertension
[2022-06-04] MEDS: SUCRALFATE 1 GM/10 ML UDC PO SCH ×2 (20:29)
[2022-06-04] MEDS: ARIPiprazole 10 MG TAB PO SCH (20:33)
[2022-06-05] MEDS: AMPHETAMINE ASP/SULF/DEXTRAMPH 10 MG TAB PO SCH (05:35)
[2022-06-05 06:39] LABS: Hematocrit (blood only) 27.6 % (34.1-44.9); Hemoglobin 9.4 g/dl (12.0-16.0); Mean Corpuscular Hemoglobin 28.6 pg (25.0-34.0); Mean Corpuscular Hgb Conc 34.1 g/dL (32.0-36.0); Mean Corpuscular Volume 83.9 fL (80.0-100.0); Mean Platelet Volume 9.2 fL (9.4-12.3); Platelet Count 192 K/uL (130-400); RDW Coefficient of Variation 13.3 % (11.5-14.5); RDW Standard Deviation 40.3 fL (36.4-46.3); Red Blood Count 3.29 M/uL (3.93-5.22); White Blood Count 3.47 K/ul (4.8-10.8)
[2022-06-05 07:25] LABS: BUN Creatinine Ratio 11.1 (10-20); Calcium 8.6 mg/dl (8.5-10.1); Creatinine Clr Calc Pharmacy 101.2 ml/min; Est GFR (African American) 109.1 ml/min; Est GFR (Non-African American) 94.1 ml/min; Potassium 3.9 mmol/L (3.5-5.1)
[2022-06-05] MEDS: PANTOprazole 40 MG TAB PO SCH (08:35)
[2022-06-05] MEDS: VITAMIN B COMPLEX TAB PO SCH (08:35)
[2022-06-05] MEDS: SUCRALFATE 1 GM/10 ML UDC PO SCH ×2 (08:35→11:49)
[2022-06-05] MEDS: GABAPENTIN 600 MG TAB PO SCH (08:35)
[2022-06-05] MEDS: CHOLECALCIFEROL 400 UNITS 10 MCG TAB PO SCH (08:36)
[2022-06-05] MEDS: METOCLOPRAMIDE HCL 10 MG TABLET PO SCH ×2 (08:36→11:49)
[2022-06-05] MEDS: buPROPion XL 300 MG TABCR PO SCH (08:36)
[2022-06-05] MEDS: buPROPion XL 150 MG TABCR PO SCH (08:36)
[2022-06-05] MEDS: MoRPHine SULFATE CR 15 MG TABCR PO SCH (08:48)
[2022-06-05] MEDS ORDERED: IRON SUCROSE 300 MG in SODIUM CHLORIDE 0.9% 250 ML IV ONE (09:00)
[2022-06-05] MEDS: HYDROmorphone INJ 0.5 MG/0.5 ML SYR IV PRN (10:35)
--- NOTE | 2022-06-05 13:56 | Discharge Summary ---
Date of Service date of admission - June 02, 2022 date of discharge - June 05, 2022 Admission HPI Per Admitting Provider Milagros Mcgraw is a 66yo female with PMHx significant for Manolo-en-Y gastric bypass (~15 years ago), previous upper GI bleeds (last in 2019, due to ulceration at Manolo-en-Y anastomosis), chronic upper back pain (f/w pain management, on Morphine 30MMEs daily as well as chronic Naproxen PRN), gastroparesis, HTN and depression. She presented to [facility] on 06/02 for concern for upper GI bleed. Patient has been taking Naproxen at least 3x per week for breakthrough back pain for some time, and has had progressively worsening epigastric pain with associated nausea over the last week; has been difficult to eat/drink without symptoms. Then started to have 7-8 loose melanotic BMs with dark blood over the last 2 days, with associated lightheadedness and dyspnea on exertion. Last BM was loose/melanotic/bloody and at 19:00. In the ED the patient was afebrile and hemodynamically stable on room air. Labs significant for Hgb 11.5 (baseline 13.2). Type/screen with positive antibodies (h/o RBC antibodies on type/screen). CBC/CMP/Lipase otherwise WNL. COVID-[address] A/P without acute pathology. In the ED the patient received NSS 500cc bolus and was started on NSS @125cc/hr. Also Pepcid 20mg IV x1, Protonix 80mg IV bolus + gtt, Zofran x1, and Dilaudid 0.25mg IV x1. Principal Diagnosis Upper GI bleeding due to gastric ulcer Discharge Exam gen - obese, NAD, looks good mouth - MMM neck - no JVD heart - RRR, s1, s2, 1/6 STEPHANIE LSB lungs - CTA b/l abd - soft NT ND BS+ ext - no edema, pulses 2+ b/l psych - a/o x 3 Discharge Data Allergies Allergy/AdvReac Type Severity Reaction Status Date / Time Bactrim Allergy Unknown unknown Verified 03/20/13 21:21 sulfamethoxazole Allergy Unknown at age 20, Verified 06/03/22 00:12 can not remember what happened trimethoprim Allergy Unknown at age 20, Verified 06/03/22 00:12 can not remember what happened milk AdvReac Diarrhea Unverified 06/03/22 00:13 ice cream AdvReac Diarrhea Uncoded 06/03/22 00:14 Consultations [facility] Procedures Performed 1. Operation Date: 06/03/22 16:30 Actual Procedures EGD Hemostasis - Anders Montgomery MD Findings: The examined esophagus was normal. One linear gastric ulcer with a visible vessel was found at the anastomosis. Area was successfully injected with 4 mL of a 0.1 mg/mL solution of epinephrine for hemostasis. For hemostasis, two hemostatic clips were successfully placed. Clip studio operations engineer in charge: [employer]. There was no bleeding at the end of the procedure. The examined duodenum was normal. 2. IV Venofer x 2 infusions Ordered Studies Abdomen/Pelvis CT 06/02/22 22:[address] WITHOUT CONTRAST CT DOSE: 1039.90 mGy.cm HISTORY: Acute generalized abdominal pain with GI bleed gi bleed TECHNIQUE: Multiaxial CT images of the abdomen and pelvis were performed without contrast. A dose lowering technique was utilized adhering to the principles of ALARA. COMPARISON STUDY: None. FINDINGS: Clear lung bases. No pneumatosis or pneumoperitoneum. The unenhanced spleen, moderately atrophic pancreas and adrenal glands are unremarkable. Cholecystectomy. Unremarkable liver. Right kidney is within normal limits. There are approximately 3 nonobstructing calculi of the left kidney measuring up to 3 mm. No ureteral calculi or hydronephrosis identified. Unremarkable urinary bladder. Hysterectomy. Aorta and IVC are unremarkable. There is no lymphadenopathy identified. Small hiatal hernia. Manolo-en-Y gastric bypass. No bowel obstruction or bowel wall thickening. Mild colonic diverticulosis with mild to moderate colonic fecal retention. The appendix is reportedly surgically absent. Unremarkable soft tissues. No acute fracture identified. Right hip total joint arthroplasty. Lumbar levoscoliosis. IMPRESSION: 1. No bowel obstruction or bowel wall thickening. 2. Mild colonic diverticulosis without acute diverticulitis. 3. Nonobstructing left renal calculi. 4. Additional findings as above. ACT 112: Negative or not required by law. The above report was generated using voice recognition software. It may contain grammatical, syntax or spelling errors. Electronically signed by: Reji Christine M.D. 06/03/2022 7:22 AM Chest X-Ray 06/02/22 22:03 XR chest 1V portable CLINICAL HISTORY: sob, gi bleed TECHNIQUE: Single frontal radiograph of the chest was obtained. Comparison: Comparison is made to chest radiograph 03/20/2013 FINDINGS: No lines and tubes are seen. The cardiomediastinal silhouette is normal. The lungs are clear. No evidence of pleural effusion or pneumothorax. IMPRESSION: No acute chest disease. ACT 112: Negative or not required by law. Electronically signed by: Compa Garsia M.D. 06/03/2022 8:34 AM Abdomen X-Ray 06/04/22 17:20 XR abdomen min 2V CLINICAL HISTORY: abd pain, gastric ulcer, constipation TECHNIQUE: 2 views of the abdomen were obtained. Comparison: Comparison is made to CT abdomen pelvis 06/02/2022 FINDINGS: Scattered surgical clips are seen within the abdomen. Degenerative changes are seen in the visualized skeleton. Scoliosis noted. Right hip total arthroplasty is seen. The bowel gas pattern is nonobstructive. Small stool burden is seen. IMPRESSION: Small stool burden without evidence of obstruction or fecal impaction. ACT 112: Negative or not required by law. Electronically signed by: Compa Garsia M.D. 06/04/2022 6:09 PM Hospital Course (1) UGIB (upper gastrointestinal bleed): 2nd to gastric ulcer with visible vessel as seen on EGD by Dr Anders Montgomery. s/p epi and clips x [address] Montgomery. This ulcer was 2nd NSAIDs in setting of gastric bypass status. Initially was on IV PPI --> transitioned to PO pantoprazole 40mg BID. After her EGD she continued with mild abdominal pain despite PPI; thus, carafate was added. With the addition of carafate her abdominal pain fully resolved. She was resumed on a clear liquid diet, and slowly advanced to regular diet. She was tolerating such prior to discharge. Presenting hemoglobin was 11.5; discharge hemoglobin was 9.4. Hemoglobin was stable for minimum 24+ hours prior to discharge. At discharge we advised - * pantoprazole 40mg BID x 3 months, then once daily thereafter - probably lifelong * carafate 1gm before meals x 7 days * discontinue ALL NSAIDs * bland diet for 7-10 days * avoid etoh, excessive use of caffeinated beverages, etc f/u with [facility] within 2-3 weeks of discharge. (2) Acute blood loss anemia: 2nd to #1 Fe studies c/w Fe deficiency as below cont PPI twice daily for gastric ulcer along with carafate discharge hemoglobin 9.4 (3) Iron deficiency: Ferritin = 27 s/p 2 doses of IV venofer while here recommend additional IV venofer as outpatient (4) Chronic back pain: Patient takes long-acting Morphine 15mg BID Cont morphine, but stop all NSAID use due to #1 Patient reported that she had a follow-up appointment with her pain management provider within 5 days of discharge Unfortunately she did not have enough supply to last her to that appointment Our team contacted her pain management office to alert them of this and the fact that we were going to prescribe her a very short course of her morphine A 3-day supply of her morphine was prescribed at discharge (5) Hypertension: continue amlodipine (6) Irritable bowel syndrome with constipation: continue home Reglan (7) Depression: continue wellbutrin/abilify (8) Attention deficit disorder (ADD): continue amphetamine/dextroamphetamine (9) Migraine: triptans prn (10) Vitamin D insufficiency: 25-OH vitamin D level = 23 we advised INCREASE in her vitamin D supplement to 1200 units / day (at minimum) with f/u level in a few months Total Time Total Time Spent Total Time Spent (In Minutes): 45 Discharge Plan Discharge Items Patient Disposition: Home - Self-Care Reason For Visit: UPPER GI BLEED Discharge Diagnosis: 1. Upper gastrointestinal bleeding due to gastric (stomach) ulcer 2. Iron deficiency anemia due to bleeding and prior gastric bypass procedure Activity: As commented below Activity Comment: gradually increase activities over the next 7-10 days Non-emergency contact: Primary Care Provider, Specialist and Tobacco Sorter Call non-emergency contact if: you have any medication questions and your symptoms worsen Follow-up/Referrals: Anders Montgomery MD [Physician] - (2 weeks - follow-up of gastric ulcer ) Sergio Peacock MD [Primary Care Provider] - (Please call to schedule an appointment tomorrow between 8am and 4pm) Diet: Bariatric Diet Comment: avoid fried/spicy foods for 7-10 days; avoid caffeinated drinks x 2 weeks Addtl Attending Provider Instructions: Mrs Mcgraw, You were hospitalized for upper gastrointestinal (GI) bleeding. Fortunately you did not require a blood transfusion. [facility] performed upper endoscopy ("EGD"). This showed a gastric (stomach) ulcer. This was the cause of your bleeding. The ulcer likely formed as a result of chronic use of anti-inflammatory pills for back pain. Heavy alcohol use, heavy caffeine consumption, and other factors sometimes can contribute to gastric ulcers. But, in this case, it was likely the etodolac anti-inflammatory pill. You improved with IV acid reducers. Your hemoglobin on day of discharge is 9.4. We checked your vitamin B12 and folate levels - these were sufficient. We checked your iron levels and these were LOW. Thus, we gave you 2 runs of IV iron. We also checked your vitamin D level and this was mildly low at 23 (normal 30 and up). Your echocardiogram showed normal heart function and normal valves. Recommendations - 1. DISCONTINUE etodolac. DO NOT USE any [id number] aspirin, motrin, ibuprofen, alleve, naprosyn, goodie powders, BC powders, etc. 2. OK to take tylenol if desired for aches/pains. Tylenol does not cause ulcers or bleeding. 3. RESUME pantoprazole 40mg twice daily. Take it twice daily for 3 months, then once daily indefinitely after that. 4. Take sucralfate (carafate) 1 gm before meals x 7 days. 5. For your mild vitamin D deficiency please INCREASE your vitamin D supplement to 1200 units daily. Have your vitamin D level repeated in a few months. 6. Please speak to your family doctor or your GI doctor about getting another outpatient iron infusion. This is not urgent; it can be done in a few weeks. 7. Avoid fried foods, spicy food, etc for at least 7-10 days. 8. No alcohol please. 9. Restrict caffeinated beverages over the next 2 weeks. 10. I have given you a 3-day supply of your morphine for you. Please follow-up with your pain management physician as scheduled next week for further refills. 11. Follow-up [facility] in about 2-3 weeks. 12. See your family doctor within 1 week. You will need a repeat hemoglobin (CBC) at that time. Know that you may see dark stool over the next few days. This is OLD blood. The stool should return to brown color after that. If you see dark/black stool at any time over the next few weeks this may indicate you are having GI bleeding again. Return to [facility] if - * you have concerns about recurrent GI bleeding * you are short of breath or have chest pain * you have worsening abdominal pains * you are dizzy or lightheaded * any other concerns It was our pleasure to care for you at [facility]! Dr Rodriguez Pending Studies at Discharge: No Stand-Alone Forms: My [facility], Smoking Cessation Medications and DC Order Prescriptions: New pantoprazole 40 mg Tablet,Delayed Release (Dr/Ec) 40 mg PO BID Qty: 60 2RF Continued bupropion HCl [Wellbutrin XL] 300 mg Tablet Extended Release 24 Hr 300 mg PO QAM Rx Instructions: TAKE WITH 15O MG ER = 450MG EVERY MORNING bupropion HCl [Wellbutrin XL] 150 mg Tablet Extended Release 24 Hr 150 mg PO QAM Rx Instructions: TAKE WITH 300MG XL =450MG XL EVERY MORNING sumatriptan succinate 100 mg tablet 100 mg PO .DAILY/UD MDD 2TABS PRN (Reason: Migraine Headache) Rx Instructions: ONE TABLET, NEEDED FOR MIGRAINE, MAY REPEAT IN TWO HOURS. MAX DAILY = 2 TABS gabapentin 600 mg tablet 1,800 mg PO AMHS dextroamphetamine-amphetamine 30 mg tablet 30 mg PO BID aripiprazole 10 mg tablet 10 mg PO QAM tizanidine 4 mg tablet 4 - 12 mg PO HS PRN (Reason: Muscle Spasm) metoclopramide HCl 10 mg tablet 10 mg PO AC vitamin B complex Tablet 1 tab PO DAILY multivitamin [Multiple Vitamins] Tablet 1 tab PO DAILY morphine 15 mg tablet extended release 15 mg PO BID 3 Days Qty: 6 0RF Changed cholecalciferol (vitamin D3) 10 mcg (400 unit) Tablet 30 mcg PO DAILY Qty: 1 0RF Discontinued etodolac 500 mg tablet extended release 24 hr 1,000 mg PO DAILY Rx Instructions: TAKE WITH FOOD Discharge Orders: Discharge Order (Routine); Ordered 06/05/22 Ordered By: Bill Reyes/Other Patient Handouts: Understanding Gastric Ulcers, ED Anemia, Iron- Deficiency (Adult) Admission Data Admit Date/Time: 06/02/22 23:49 Attending Provider: Bill Rodriguez Admit Provider: René Miramontes Primary Care Provider: Sergio Peacock Other Providers: Bebeto Uribe ; Anders Montgomery Other Interventions: Discharge Summary Assessment (RN) Last Done: 06/05/22 13:50 Coding Level of Care Code HOSP INP/OBS DISCH >30 MIN Diagnoses UGIB (upper gastrointestinal bleed) K92.2 Acute blood loss anemia D62 Iron deficiency E61.1 Chronic back pain M54.9; G89.29 Hypertension I10 Hypertension type: essential hypertension Irritable bowel syndrome with constipation K58.1 Depression F32.9 Active/Remission status: remission status unspecified Depression Type: major depressive disorder Major depression recurrence: unspecified whether recurrent Attention deficit disorder (ADD) F98.8 Migraine G43.909 Vitamin D insufficiency E55.9
== END 2022-06-05 15:45 | disposition home or self-care (01) | DRG 378 ==
LOC: ED 21:11 → SUATTDRO 23:49 → 2W 23:49

== ENCOUNTER 2023-11-28 23:46 | Inpatient (IN) ==
[2023-11-29 00:38] LABS: Basophils # (auto) 0.02 K/uL (0.00-0.20); Basophils % (auto) 0.3 %; Eosinophils # (auto) 0.07 K/uL (0.00-0.50); Eosinophils % (auto) 1.2 %; Hematocrit (blood only) 33.4 % (37.0-47.0); Hemoglobin 10.5 g/dl (12.0-16.0); Immature Granulocytes # (auto) 0.03 K/uL (0.01-0.20); Immature Granulocytes % (auto) 0.5 %; Lymphocytes % (auto) 16.8 %; Mean Corpuscular Hemoglobin 27.1 pg (25.0-34.0); Mean Corpuscular Hgb Conc 31.4 g/dL (32.0-36.0); Mean Corpuscular Volume 86.3 fL (80.0-100.0); Mean Platelet Volume 8.8 fL (9.4-12.4); Monocytes # (auto) 0.61 K/uL (0.11-0.59); Monocytes % (auto) 10.3 %; Neutrophils # (auto) 4.22 K/uL (1.40-6.50); Neutrophils % (auto) 70.9 %; Platelet Count 305 K/uL (130-400); RDW Coefficient of Variation 19.2 % (11.5-14.5); RDW Standard Deviation 58.8 fL (36.4-46.3); Red Blood Count 3.87 M/uL (4.20-5.40); White Blood Count 5.95 K/ul (4.8-10.8)
[2023-11-29 00:39] LABS: Appearance Urine Clear (Clear); Bacteria Urine Automated None Seen (None Seen); Bilirubin Urine Negative (Negative); Blood Urine Negative (Negative); Cast Urine Automated 0-2 /lpf (0-2); Color Urine Dark Yellow; Epithelial Cell Urine Auto 0-2 /hpf (0-2); Glucose Urine UA Negative (Negative); Ketones Urine Negative (Negative); Leukocyte Esterase Urine 1+ (Negative); Nitrite Urine Negative (Negative); Protein Urine Negative (Negative); Specific Gravity Urine 1.016 (1.000-1.030); Urobilinogen Urine Negative (Negative); pH Urine 5.5 (4.5-7.5)
[2023-11-29 00:46] LABS: Base Excess VBG 4.5 mEq/L; HCO3 VBG 30 mmol/L; Oxygen Saturation VBG < 60.0 %; PCO2 VBG 49 mmHg (38-50); PO2 VBG 32 mmHg
[2023-11-29 00:47] LABS: Albumin Level 3.8 gm/dl (3.4-5.0); BUN Creatinine Ratio 17.3 (10-20); Bilirubin Direct 0.3 mg/dl (0-0.2); Bilirubin,Total 1.2 mg/dl (0.2-1.0); Calcium 8.8 mg/dl (8.6-10.3); Creatinine Clr Calc Pharmacy 122.9 ml/min; Est GFR (African American) 114.6 ml/min; Est GFR (Non-African American) 98.9 ml/min; Magnesium 1.5 mg/dl (1.7-2.4); Potassium 3.3 mmol/L (3.5-5.1)
[2023-11-29 00:53] LABS: Troponin I High Sensitivity 6.9 pg/ml (0-14)
[2023-11-29] MEDS: ACETAMINOPHEN 1,000 MG/100 ML VIAL IV STA (00:57)
[2023-11-29] MEDS: SODIUM CHLORIDE 0.9% 1,000 ML IV SCH (00:58)
--- NOTE | 2023-11-29 01:04 | Emergency Department Note ---
Impression & Plan Acute hypoxemic respiratory failure, Acute alteration in mental status ED Provider Note NAME: IRVIN CERRATO AGE: 68 SEX: F : 1955 ARRIVES VIA: Ambulance INFORMANT: Patient, ED PROVIDER(S): Melissa Santillan MD CHIEF COMPLAINT: Altered mental status, hypoxia HPI: This is a 68-year-old female presenting for altered mental status. Patient is poorly found in a dry parking lot as she lost her keys to her car and was locked out. She had been acting somewhat confused and EMS was alerted. Upon my evaluation, patient is appear oriented and answering all questions appropriately. She notes that she feels somewhat weak and has had increased urination and generalized fatigue for the past 2 weeks. Her mother think she was having a stroke today but otherwise patient reports no previous history of stroke. She notes she has chronic left knee pain. ROS: See above HPI for pertinent positives & negatives. A total of 10 systems reviewed and were otherwise negative. PHYSICAL EXAMINATION: General: resting comfortably in no acute distress Head: Normocephalic and atraumatic Eyes: Normal inspection, extraocular muscles intact Ear, nose, throat: Normal external exam Neck: Normal range of motion Respiratory: lungs clear to auscultation bilaterally Cardiovascular: Regular rate/rhythm, no murmur GI: soft, nontender, no guarding or rebound Extremities: nontender, moves all extremities Neuro: The patient awake and alert, appropriately conversive, no focal deficits, symmetric faces, NIH 0 Skin: Warm, dry, and intact MEDICAL DECISION MAKING: This is a 68-year-old female presenting for confusion, hypoxia. Patient currently is hypoxic to around 88% on room air. Patient was initially on 2 L with oxygen saturation 90-91%. She was bumped up to 5 L with improvement to 95%. She denies any current cough, congestion. She is currently febrile to 38.2. Slightly tachycardic. Consider sepsis. -Upon record review present patient was here in the ER few days ago requesting opiate prescriptions due to running out of her previous. She was refilled for about 1 week. Patient does not have pinpoint pupils at this time and is not bradypneic. Opiate overdose is considered but considered less likely at this time clinically. -Will get basic blood work, chest x-ray, urinalysis and upper respiratory panel. -Chest Xray independently interpreted by me showing no pneumothorax, focal opacity, or pleural effusions. -Blood was reviewed showing no significant leukocytosis or anemia. Patient's electrolytes generally within normal limits. Procalcitonin negative. Urinalysis shows possible UTI. Will treat ceftriaxone due to her altered mental status initially. -Viral panel negative -Patient still hypoxic, has no chest pain. Will admit for further evaluation and workup. Differential diagnosis: Pneumonia, respiratory infection, opiate overdose, UTI, ER treatment provided: See below Diagnostics interpreted by me: ECG: ECG independently interpreted by me with normal sinus rhythm, rate of 109, normal CO, normal QRS, normal QTc, no ST segment elevations consistent with STEMI criteria Cardiac Monitoring: An order was placed for continuous cardiac monitoring. The monitor shows a rate of 86 with sinus rhythm. Laboratory studies: As stated above and show below. Imaging studies: See below. Past Med/Surg History Problem List (Updated 11/29/23 @ 06:17 by Melissa Santillan MD) Acute alteration in mental status (Acute) Acute hypoxemic respiratory failure (Acute) Hypokalemia Altered mental status Encounter for medication refill (Acute) Opiate withdrawal (Acute) Gastric ulcer Left wrist fracture Left wrist pain Painful total knee replacement Acute GI bleeding (Acute) Acute hypotension (Acute) Melena Encounter for pre-operative examination Ulcer at site of surgical anastomosis following bypass of stomach Diarrhea Medical marijuana use has not used several years Adenoma Gastritis Red blood cell antibody positive, compatible PRBC difficult to obtain Vitamin D insufficiency H/O gastric bypass Anxiety Osteoarthritis Neuropathy Chronic pain Anemia (Acute) Medical History Hx MRSA infection [facility] years ago, "it was in her blood" Irritable bowel syndrome with constipation Hepatitis C hx - treated History of anesthesia reaction hx of waking up during procedures Bulging discs Scoliosis Spinal stenosis Glaucoma Attention deficit disorder (ADD) Migraine Depression Hypertension hx GI bleed admitted to [facility] 06/2022; no current problems Surgical History History of partial hysterectomy History of bilateral breast reduction surgery History of bilateral tubal ligation Status post right foot surgery x7--hardware in place Status post left foot surgery x7-hardware in place History of open reduction and internal fixation (ORIF) procedure right ankle--hardware in place History of fusion of cervical spine C4-C5--normal ROM History of right shoulder replacement History of total right hip replacement History of total left knee replacement (TKR) x2 History of colonoscopy History of esophagogastroduodenoscopy (EGD) History of cholecystectomy History of appendectomy History of mandibular surgery 1978--wired shut History of tooth extraction History of wisdom tooth extraction History of eye surgery right---scar tissue from cataract sx History of bilateral cataract extraction History of cardiac cath 2005 [facility]---"fistula in heart between 2 valves"--no stents; no cardio, just PCP History of lung biopsy right side--benign Family History Mother Colorectal cancer Father Lung cancer Family history of esophageal cancer Brother Family history of esophageal cancer Grandfather (Maternal) Family history of esophageal cancer Other No family history of adverse response to anesthesia Social History Smoking Status: Never smoker Second Hand Exposure: Yes (hx growing up); Do You Dip or Chew Tobacco: No; Hx Alcohol Use: Yes Alcohol type: beer Hx Substance Use: No Preferred Language: Slovenian Communication Ability: Effective Nail Welter Required: No Beliefs That Will Affect Care: None Current Living Situation: Alone Current Living Situation Comment: Lives with brother Feels Safe at Home: Yes Assistive Devices: Glasses Allergies Allergies Allergy/AdvReac Type Severity Reaction Status Date / Time bee venom protein (honey bee) Allergy Severe Anaphylaxis Verified 11/29/23 01:06 sulfamethoxazole Allergy Unknown at age 20, Verified 11/29/23 01:06 can not remember what happened trimethoprim Allergy Unknown at age 20, Verified 11/29/23 01:06 can not remember what happened lactose AdvReac Intermediate ice cream Verified 11/29/23 04:52 gives her diarrhea milk AdvReac Intermediate Diarrhea Verified 11/29/23 01:06 Home Meds Home Medications Medication Instructions Recorded Confirmed bupropion HCl 150 mg 24 hr tablet, 150 mg PO QAM 06/03/22 11/29/23 extended release (Wellbutrin XL) bupropion HCl 300 mg 24 hr tablet, 300 mg PO QAM 06/03/22 11/29/23 extended release (Wellbutrin XL) dextroamphetamine-amphetamine 30 30 mg PO BID 06/03/22 11/29/23 mg tablet gabapentin 600 mg tablet 1,800 mg PO BID 06/03/22 11/29/23 metoclopramide HCl 10 mg tablet 10 mg PO BID PRN Nausea 06/03/22 11/29/23 multivitamin (Multiple Vitamins 1 tab PO QAM 06/03/22 11/29/23 tablet) sumatriptan succinate 100 mg tablet 100 mg PO UD PRN Migraine Headache 06/03/22 11/29/23 tizanidine 4 mg tablet 4 mg PO HS PRN MUSCLE SPASMS 06/03/22 11/29/23 vitamin B complex 1 tab PO QAM 06/03/22 11/29/23 aspirin 500 mg tablet,delayed 500 - 2,500 mg PO DAILY PRN Pain 09/24/23 11/29/23 release bismuth subsalicylate 262 mg 524 mg PO QID PRN .gi-upset 09/24/23 11/29/23 tablet (Pepto-Bismol) tafluprost (PF) 0.0015 % eye drops 2 drp OPB HS 09/24/23 11/29/23 in a dropperette timolol maleate 0.5 % eye drops 1 drp OPB QAM 09/24/23 11/29/23 epinephrine 0.3 mg/0.3 mL 0.3 mg IM DIRECTED PRN Allergic 11/29/23 11/29/23 injection, auto-injector (EpiPen) Reaction trazodone 150 mg tablet 150 mg PO HS PRN Sleep 11/29/23 11/29/23 Previous Rx's Medication Instructions Recorded pantoprazole 40 mg tablet,delayed 40 mg PO BID 90 days #180 tabs 10/14/23 release sucralfate 100 mg/mL oral 10 ml PO QID #1,000 mL 10/15/23 suspension (Carafate) hydrocodone 5 mg-acetaminophen 325 1 tab PO TID PRN pain 7 days #21 11/27/23 mg tablet tabs morphine 15 mg tablet,extended 15 mg PO Q12H 7 days #14 tabs 11/27/23 release Results & Data (ED) Vital Signs Vital Signs - 24 hr 11/28/23 23:53 11/28/23 23:54 11/28/23 23:57 Temperature 38.2 C H Temperature Source Oral Pulse Rate 110 H 109 H 112 H Pulse Rate from SpO2 Sensor 109 H Respiratory Rate 16 16 Blood Pressure 175/88 H 175/88 H Blood Pressure Mean 117 117 Pulse Oximetry 92 88 L Oxygen Delivery Method Nasal Cannula Room Air Oxygen Flow Rate 2 Sepsis Recent Fever Within 48 Hours Yes Sepsis New/Unexplained Change in Mental Status Yes Sepsis Action Taken by Nursing No Action Required Pulse Oximetry Post Tiitration 11/29/23 00:04 11/29/23 00:23 11/29/23 01:00 Temperature Temperature Source Pulse Rate 102 H Pulse Rate from SpO2 Sensor Respiratory Rate 18 Blood Pressure 112/90 Blood Pressure Mean 97 Pulse Oximetry 88 L 96 95 Oxygen Delivery Method Nasal Cannula Nasal Cannula Nasal Cannula Oxygen Flow Rate 2 5 5 Sepsis Recent Fever Within 48 Hours Sepsis New/Unexplained Change in Mental Status Sepsis Action Taken by Nursing Pulse Oximetry Post Tiitration 92 11/29/23 01:00 11/29/23 01:27 11/29/23 01:30 Temperature 37.4 C Temperature Source Oral Pulse Rate 102 H 99 H Pulse Rate from SpO2 Sensor 102 H 98 H Respiratory Rate 20 20 Blood Pressure 112/90 145/78 H Blood Pressure Mean 96 96 Pulse Oximetry 96 95 Oxygen Delivery Method Nasal Cannula Nasal Cannula Oxygen Flow Rate 5 5 Sepsis Recent Fever Within 48 Hours Sepsis New/Unexplained Change in Mental Status Sepsis Action Taken by Nursing Pulse Oximetry Post Tiitration 11/29/23 02:00 11/29/23 03:00 11/29/23 03:00 Temperature Temperature Source Pulse Rate 92 H 94 H 90 Pulse Rate from SpO2 Sensor 92 H 90 Respiratory Rate 17 18 17 Blood Pressure 128/72 124/70 124/70 Blood Pressure Mean 90 88 102 Pulse Oximetry 95 95 96 Oxygen Delivery Method Nasal Cannula Nasal Cannula Nasal Cannula Oxygen Flow Rate 5 3 3 Sepsis Recent Fever Within 48 Hours Sepsis New/Unexplained Change in Mental Status Sepsis Action Taken by Nursing Pulse Oximetry Post Tiitration 11/29/23 03:45 11/29/23 04:00 11/29/23 04:33 Temperature Temperature Source Pulse Rate 88 87 83 Pulse Rate from SpO2 Sensor 87 83 Respiratory Rate 20 19 Blood Pressure 128/72 118/68 Blood Pressure Mean 86 84 Pulse Oximetry 95 95 Oxygen Delivery Method Nasal Cannula Nasal Cannula Oxygen Flow Rate 3 3 Sepsis Recent Fever Within 48 Hours Sepsis New/Unexplained Change in Mental Status Sepsis Action Taken by Nursing Pulse Oximetry Post Tiitration 11/29/23 05:01 11/29/23 05:06 Temperature Temperature Source Pulse Rate 85 86 Pulse Rate from SpO2 Sensor 87 Respiratory Rate 18 22 Blood Pressure 119/61 119/61 Blood Pressure Mean 78 80 Pulse Oximetry 95 96 Oxygen Delivery Method Nasal Cannula Nasal Cannula Oxygen Flow Rate 3 3 Sepsis Recent Fever Within 48 Hours Sepsis New/Unexplained Change in Mental Status Sepsis Action Taken by Nursing Pulse Oximetry Post Tiitration Laboratory Data 11/29/23 00:00 11/29/23 00:00 Lab Results 11/29/23 11/29/23 11/29/23 Range/Units 00:00 00:08 00:31 WBC 5.95 (4.8-10.8) K/ul RBC 3.87 L (4.20-5.40) M/uL Hgb 10.5 L (12.0-16.0) g/dl Hct 33.4 L (37.0-47.0) % MCV 86.3 (80.0-100.0) fL MCH 27.1 (25.0-34.0) pg MCHC 31.4 L (32.0-36.0) g/dL RDW Std Deviation 58.8 H (36.4-46.3) fL RDW Coeff of Faizan 19.2 H (11.5-14.5) % Plt Count 305 (130-400) K/uL MPV 8.8 L (9.4-12.4) fL Immature Gran % (Auto) 0.5 % Neut % (Auto) 70.9 % Lymph % (Auto) 16.8 % [place] % (Auto) 10.3 % Eos % (Auto) 1.2 % Baso % (Auto) 0.3 % Neut # (Auto) 4.22 (1.40-6.50) K/uL Lymph # (Auto) 1.00 L (1.20-3.40) K/uL [place] # (Auto) 0.61 H (0.11-0.59) K/uL Eos # (Auto) 0.07 (0.00-0.50) K/uL Baso # (Auto) 0.02 (0.00-0.20) K/uL Immature Gran # (Auto) 0.03 (0.01-0.20) K/uL VBG pH 7.40 (7.36-7.41) VBG pCO2 49 (38-50) mmHg VBG pO2 32 mmHg VBG HCO3 30 mmol/L VBG O2 Saturation < 60.0 % VBG Base Excess 4.5 mEq/L Sodium 137 (136-145) mmol/L Potassium 3.3 L (3.5-5.1) mmol/L Chloride 101 (98-107) mmol/L Carbon Dioxide 29 (21-32) mmol/L Anion Gap 7 (3-11) BUN 9 (6-23) mg/dl Creatinine 0.52 L (0.6-1.2) mg/dl Est Cr Clr Drug Dosing 122.9 ml/min Est GFR ( Amer) 114.6 ml/min Est GFR (Non-Af Amer) 98.9 ml/min BUN/Creatinine Ratio 17.3 (10-20) Glucose 121 H (70-99(Fasting)) mg/dl POC Glucose (70-99) mg/dl Lactate 1.4 (0.4-2.0) mmol/L Calcium 8.8 (8.6-10.3) mg/dl Magnesium 1.5 L (1.7-2.4) mg/dl Total Bilirubin 1.2 H (0.2-1.0) mg/dl Direct Bilirubin 0.3 H (0-0.2) mg/dl AST 21 (13-39) U/L ALT 12 (7-52) U/L Alkaline Phosphatase 62 (34-104) U/L Troponin I High Sens 6.9 (0-14) pg/ml Total Protein 7.0 (6.0-8.3) gm/dl Albumin 3.8 (3.4-5.0) gm/dl Procalcitonin < 0.02 (0-0.5) ng/ml Urine Color Dark Yellow Urine Appearance Clear (Clear) Urine pH 5.5 (4.5-7.5) Ur Specific [place] 1.016 (1.000-1.030) Urine Protein Negative (Negative) Urine Glucose (UA) Negative (Negative) Urine Ketones Negative (Negative) Urine Blood Negative (Negative) Urine Nitrite Negative (Negative) Urine Bilirubin Negative (Negative) Urine Urobilinogen Negative (Negative) Ur Leukocyte Esterase 1+ H (Negative) Urine WBC (Auto) 6-10 H (0-5) /hpf Urine RBC (Auto) 3-5 H (0-2) /hpf U Hyaline Cast (Auto) 0-2 (0-2) /lpf U Epithel Cells (Auto) 0-2 (0-2) /hpf Urine Bacteria (Auto) None Seen (None Seen) Urine Opiates Screen Pos H (Neg) Ur Methadone, Qual Neg (Neg) Urine Fentanyl Screen Neg (Neg) Urine Barbiturates Neg (Neg) Ur Phencyclidine (PCP) Neg (Neg) U Amphetamin/Meth Scrn Neg (Neg) MDMA (Ecstasy) Screen Pos H (Neg) U Benzodiazepines Scrn Neg (Neg) Ur Cocaine Metabolite Neg (Neg) U Marijuana (THC) Screen Neg (Neg) Ethyl Alcohol mg/dL < 10.0 (<10.0) mg/dl Adenovirus (PCR) (NotDetected) B. pertussis DNA (PCR) (NotDetected) B.parapertussis DNA PCR (NotDetected) C. pneumoniae DNA (PCR) (NotDetected) Coronavirus OC43 (PCR) (NotDetected) Coronavirus HKU1 (PCR) (NotDetected) Coronavirus 229E (PCR) (NotDetected) SARS-CoV-2 (PCR) (NotDetected) Coronavirus NL63 (PCR) (NotDetected) Human Metapneumovir PCR (NotDetected) Influenza Type A (PCR) (NotDetected) Influenza Type B (PCR) (NotDetected) M. pneumoniae (PCR) (NotDetected) Parainfluenza 1 (PCR) (NotDetected) Parainfluenza 2 (PCR) (NotDetected) Parainfluenza 3 (PCR) (NotDetected) Parainfluenza 4 (PCR) (NotDetected) RSV (PCR) (NotDetected) Entero/Rhino (PCR) (NotDetected) 11/29/23 11/29/23 Range/Units 00:34 01:04 WBC (4.8-10.8) K/ul RBC (4.20-5.40) M/uL Hgb (12.0-16.0) g/dl Hct (37.0-47.0) % MCV (80.0-100.0) fL MCH (25.0-34.0) pg MCHC (32.0-36.0) g/dL RDW Std Deviation (36.4-46.3) fL RDW Coeff of Faizan (11.5-14.5) % Plt Count (130-400) K/uL MPV (9.4-12.4) fL Immature Gran % (Auto) % Neut % (Auto) % Lymph % (Auto) % [place] % (Auto) % Eos % (Auto) % Baso % (Auto) % Neut # (Auto) (1.40-6.50) K/uL Lymph # (Auto) (1.20-3.40) K/uL [place] # (Auto) (0.11-0.59) K/uL Eos # (Auto) (0.00-0.50) K/uL Baso # (Auto) (0.00-0.20) K/uL Immature Gran # (Auto) (0.01-0.20) K/uL VBG pH (7.36-7.41) VBG pCO2 (38-50) mmHg VBG pO2 mmHg VBG HCO3 mmol/L VBG O2 Saturation % VBG Base Excess mEq/L Sodium (136-145) mmol/L Potassium (3.5-5.1) mmol/L Chloride (98-107) mmol/L Carbon Dioxide (21-32) mmol/L Anion Gap (3-11) BUN (6-23) mg/dl Creatinine (0.6-1.2) mg/dl Est Cr Clr Drug Dosing ml/min Est GFR ( Amer) ml/min Est GFR (Non-Af Amer) ml/min BUN/Creatinine Ratio (10-20) Glucose (70-99(Fasting)) mg/dl POC Glucose 124 H (70-99) mg/dl Lactate (0.4-2.0) mmol/L Calcium (8.6-10.3) mg/dl Magnesium (1.7-2.4) mg/dl Total Bilirubin (0.2-1.0) mg/dl Direct Bilirubin (0-0.2) mg/dl AST (13-39) U/L ALT (7-52) U/L Alkaline Phosphatase (34-104) U/L Troponin I High Sens (0-14) pg/ml Total Protein (6.0-8.3) gm/dl Albumin (3.4-5.0) gm/dl Procalcitonin (0-0.5) ng/ml Urine Color Urine Appearance (Clear) Urine pH (4.5-7.5) Ur Specific [place] (1.000-1.030) Urine Protein (Negative) Urine Glucose (UA) (Negative) Urine Ketones (Negative) Urine Blood (Negative) Urine Nitrite (Negative) Urine Bilirubin (Negative) Urine Urobilinogen (Negative) Ur Leukocyte Esterase (Negative) Urine WBC (Auto) (0-5) /hpf Urine RBC (Auto) (0-2) /hpf U Hyaline Cast (Auto) (0-2) /lpf U Epithel Cells (Auto) (0-2) /hpf Urine Bacteria (Auto) (None Seen) Urine Opiates Screen (Neg) Ur Methadone, Qual (Neg) Urine Fentanyl Screen (Neg) Urine Barbiturates (Neg) Ur Phencyclidine (PCP) (Neg) U Amphetamin/Meth Scrn (Neg) MDMA (Ecstasy) Screen (Neg) U Benzodiazepines Scrn (Neg) Ur Cocaine Metabolite (Neg) U Marijuana (THC) Screen (Neg) Ethyl Alcohol mg/dL (<10.0) mg/dl Adenovirus (PCR) Not Detected (NotDetected) B. pertussis DNA (PCR) Not Detected (NotDetected) B.parapertussis DNA PCR Not Detected (NotDetected) C. pneumoniae DNA (PCR) Not Detected (NotDetected) Coronavirus OC43 (PCR) Not Detected (NotDetected) Coronavirus HKU1 (PCR) Not Detected (NotDetected) Coronavirus 229E (PCR) Not Detected (NotDetected) SARS-CoV-2 (PCR) Not Detected (NotDetected) Coronavirus NL63 (PCR) Not Detected (NotDetected) Human Metapneumovir PCR Not Detected (NotDetected) Influenza Type A (PCR) Not Detected (NotDetected) Influenza Type B (PCR) Not Detected (NotDetected) M. pneumoniae (PCR) Not Detected (NotDetected) Parainfluenza 1 (PCR) Not Detected (NotDetected) Parainfluenza 2 (PCR) Not Detected (NotDetected) Parainfluenza 3 (PCR) Not Detected (NotDetected) Parainfluenza 4 (PCR) Not Detected (NotDetected) RSV (PCR) Not Detected (NotDetected) Entero/Rhino (PCR) Not Detected (NotDetected) Administered Medications Discontinued Medications Sodium Chloride (Nss) 1,000 mls @ 999 mls/hr IV .Q1H1M TON Stop: 11/29/23 01:15 Last Infusion: 11/29/23 02:01 Dose: Infused Documented By: Admin: 11/29/23 00:58 Dose: 999 mls/hr Documented By: NELI Acetaminophen (Ofirmev) 1,000 mg in 100 mls @ 400 mls/hr IV NOW STA Stop: 11/29/23 00:55 Last Infusion: 11/29/23 01:13 Dose: Infused Documented By: Admin: 11/29/23 00:57 Dose: 400 mls/hr Documented By: NELI Ceftriaxone Sodium (Rocephin) 2,000 mg in 50 mls @ 100 mls/hr IV NOW STA Stop: 11/29/23 02:56 Last Infusion: 11/29/23 04:38 Dose: Infused Documented By: Admin: 11/29/23 03:40 Dose: 100 mls/hr Documented By: NELI Potassium Chloride (Potassium Chloride Crtab 20 Meq Tabcr) 40 meq PO NOW STA Stop: 11/29/23 04:51 Last Admin: 11/29/23 05:04 Dose: 40 meq Documented By: NELI Discharge Plan Visit Data Chief Complaint: Altered Mental Status Stated Complaint: AMS, Fever, Possible R Side Facial Droop ED Provider: Melissa Santillan Discharge Problem: Acute hypoxemic respiratory failure, Acute alteration in mental status Forms Stand Alone Forms: [facility] [email or web address] Prescriptions Prescriptions: No Action pantoprazole 40 mg tablet,delayed release (DR/EC) 40 mg PO BID 90 Days Qty: 180 1RF sucralfate [Carafate] 100 mg/mL suspension 10 ml PO QID Qty: 1000 2RF Rx Instructions: LAST FILLED 10/16/23 FOR 25 DAYS. swish in mouth and swallow; use after food/drink bupropion HCl [Wellbutrin XL] 300 mg Tablet Extended Release 24 Hr 300 mg PO QAM Rx Instructions: TAKE WITH 150 MG ER = 450MG EVERY MORNING bupropion HCl [Wellbutrin XL] 150 mg Tablet Extended Release 24 Hr 150 mg PO QAM Rx Instructions: TAKE WITH 300MG XL =450MG XL EVERY MORNING sumatriptan succinate 100 mg tablet 100 mg PO UD MDD 2TABS PRN (Reason: Migraine Headache) Rx Instructions: ONE TABLET, NEEDED FOR MIGRAINE, MAY REPEAT IN TWO HOURS. MAX DAILY = 2 TABS gabapentin 600 mg tablet 1,800 mg PO BID dextroamphetamine-amphetamine 30 mg tablet 30 mg PO BID Rx Instructions: LAST FILLED 09/25/23 FOR 60 TABS/30 DAYS. tizanidine 4 mg tablet 4 mg PO HS PRN (Reason: MUSCLE SPASMS) Rx Instructions: LAST FILLED 01/07/23 FOR 270 TABS/90 DAYS. metoclopramide HCl 10 mg tablet 10 mg PO BID PRN (Reason: Nausea) vitamin B complex Tablet 1 tab PO QAM multivitamin [Multiple Vitamins] Tablet 1 tab PO QAM morphine 15 mg tablet extended release 15 mg PO Q12H 7 Days Qty: 14 0RF hydrocodone-acetaminophen 5-325 mg tablet 1 tab PO TID PRN (Reason: pain) 7 Days Qty: 21 0RF trazodone 150 mg tablet 150 mg PO HS PRN (Reason: Sleep) epinephrine [EpiPen] 0.3 mg/0.3 mL Auto-Injector 0.3 mg IM DIRECTED PRN (Reason: Allergic Reaction) aspirin 500 mg Tablet,Delayed Release (Dr/Ec) 500 - 2,500 mg PO DAILY PRN (Reason: Pain) Pepto-Bismol 262 mg Tablet 524 mg PO QID PRN (Reason: .gi-upset) timolol maleate 0.5 % drops 1 drp OPB QAM tafluprost (PF) 0.0015 % dropperette 2 drp OPB HS Referrals Referrals: Sergio Peacock MD [Primary Care Provider] -
[2023-11-29 02:10] LABS: Adenovirus PCR Not Detected (NotDetected); Bordetella parapertussis PCR Not Detected (NotDetected); Bordetella pertussis PCR Not Detected (NotDetected); Chlamydia pneumoniae PCR Not Detected (NotDetected); Coronavirus 229E PCR Not Detected (NotDetected); Coronavirus CoV-2 (COVID19)PCR Not Detected (NotDetected); Coronavirus HKU1 PCR Not Detected (NotDetected); Coronavirus NL63 PCR Not Detected (NotDetected); Coronavirus OC43PCR Not Detected (NotDetected); Human Metapneumovirus PCR Not Detected (NotDetected); Influenza A PCR Not Detected (NotDetected); Influenza B PCR Not Detected (NotDetected); Mycoplasma pneumoniae PCR Not Detected (NotDetected); Parainfluenza Virus 1 PCR Not Detected (NotDetected); Parainfluenza Virus 2 PCR Not Detected (NotDetected); Parainfluenza Virus 3 PCR Not Detected (NotDetected); Parainfluenza Virus 4 PCR Not Detected (NotDetected); Respiratory Syncytial VirusPCR Not Detected (NotDetected); Rhinovirus/Enterovirus PCR Not Detected (NotDetected)
[2023-11-29 02:59] LABS: Amphetamines+Metham, Urine Neg (Neg); Barbiturates, Urine Neg (Neg); Benzodiazepine, Urine Neg (Neg); Cocaine, Urine Neg (Neg); Fentanyl, Urine Neg (Neg); MDMA (Ecstacy), Urine Pos (Neg); Marijuana, Urine Neg (Neg); Methadone, Urine Neg (Neg); Opiate, Urine Pos (Neg); Phencyclidine, Urine Neg (Neg)
[2023-11-29] MEDS: cefTRIAXone SODIUM 2,000 MG/50 ML BAG IV STA (03:40)
--- NOTE | 2023-11-29 04:36 | History & Physical Report ---
Date of Service November 29, 2023 Assessment & Plan (1) Altered mental status: Plan: Pt is 68 yo female with PMH of recurrent upper GI bleeds (2022), gastroparesis, HTN, and depression presenting after an episode of AMS. AMS - Lab work significant for no leukocytosis, Hgb 10.5, hypokalemia of 3.3, Cr 0.52, glucose 121, lactate 1.4, procal 0.02 - drug screen pos for opiates (pt does have prescriptions for morphine and hydrocodone d/t chronic knee pain- most recently filled 7 day script 11/26, prior to that 10/28 for 26 and 27 day scripts per PDMP) and MDMA (pt prescribed Wellbutrin and Adderall although pt has not had Adderall for at least a month); pt denies illicit drug use- awaiting confirmation studies - Alcohol level neg; however, will place pt on AWSS at risk protocol in case of unexpected withdrawal symptoms - VBG showing pH 7.40, pCO2 49, pO2 32 -RVP negative -CXR w/o obvious pathology; CT chest pending - CT head w/o obvious stroke, bleed, or mass- pending final read -Blood cultures pending -No obvious metabolic etiology for her AMS -Low suspicion for infectious source at this time d/t no leukocytosis, neg procal/lactate, neg UA; s/p ceftriaxone x1 in ER; will defer further ABX on admission - consider brain MRI pending final result of head CT Hypoxia - lowest recorded SpO2 88%; originally requiring 5L, now weaned to 3L upon admission - no hx of lung disease - CXR unrevealing; CT chest pending - do not suspect infectious etiology at this time - wean O2 as able Anemia - Hgb 10.5 upon admission (09/24/2023 showed Hgb of 12.2) - pt with extensive hx of bleeding ulcers; high suspicion for recurrence (despite no symptoms noted by pt) - continue home PPI - hemoccult stools; trend CBC Hypokalemia - 3.3 upon admission - supplement PRN; trend BMP Chronic pain - pt notes her pain management doc closed his office abruptly leading her to seek a refill recently at the ER - PDMP checked and appropriate with pts history in terms of controlled pain medications - low suspicion for drug misuse/opioid OD contributing to presentation - urine + for opiates as expected; confirmation pending Diet: heart healthy DVT ppx: will defer in the setting of concern for GI bleed; if Hgb remains stable and hospitalization prolonged, would recommend addition of DVT ppx Code: DNR/DNI Dispo: admit to PCU/tele (2) Anemia: (3) Chronic pain: (4) Hypokalemia: History of Present Illness Chief Complaint: AMS Primary Care Provider: Sergio Peacock MD Pt is 68 yo female with PMH of recurrent upper GI bleeds (2019, 2022), gastroparesis, HTN, and depression presenting after an episode of AMS. Pt found brought in via EMS from grocery store parking lot of being unable to get into her car and acting confused. Pt explains that she does not recall this episode. The last thing she remembers is shopping. She does not remember how she got to her car. However, she does recall being very stressed while shopping d/t the fact that she locked the keys in her car. She remembers waking up with lots of people around her and her riding in the ambulance. She notes that her PCP told her that he is suspicious that she may have had a series of strokes throughout this year. She has been having issues with her memory since Jun 2023. She also endorses some trouble walking and with word finding. She denies other hx of stroke or MA. She denies any recent med changes aside from being taken off etodolac and reglan- no new medications have been added. She denies drinking alcohol and denies drug use (specifically, MDMA). Pt endorses long standing hx of chronic left knee pain and bleeding ulcers. She has not had any recent increase in her pain medications and denies BRBPR/dark stools. In the ER, she was given 1L NS, Tylenol 1000mg x1, and ceftriaxone x1. Allergies Allergy/AdvReac Type Severity Reaction Status Date / Time bee venom protein (honey bee) Allergy Severe Anaphylaxis Verified 11/29/23 01:06 sulfamethoxazole Allergy Unknown at age 20, Verified 11/29/23 01:06 can not remember what happened trimethoprim Allergy Unknown at age 20, Verified 11/29/23 01:06 can not remember what happened lactose AdvReac Intermediate ice cream Verified 11/29/23 04:52 gives her diarrhea milk AdvReac Intermediate Diarrhea Verified 11/29/23 01:06 Home Medications Medication Instructions Recorded Confirmed Type bupropion HCl 150 mg 24 hr tablet, 150 mg PO QAM 06/03/22 11/29/23 History extended release (Wellbutrin XL) bupropion HCl 300 mg 24 hr tablet, 300 mg PO QAM 06/03/22 11/29/23 History extended release (Wellbutrin XL) dextroamphetamine-amphetamine 30 30 mg PO BID 06/03/22 11/29/23 History mg tablet gabapentin 600 mg tablet 1,800 mg PO BID 06/03/22 11/29/23 History metoclopramide HCl 10 mg tablet 10 mg PO BID PRN Nausea 06/03/22 11/29/23 History multivitamin (Multiple Vitamins 1 tab PO QAM 06/03/22 11/29/23 History tablet) sumatriptan succinate 100 mg tablet 100 mg PO UD PRN Migraine Headache 06/03/22 11/29/23 History tizanidine 4 mg tablet 4 mg PO HS PRN MUSCLE SPASMS 06/03/22 11/29/23 History vitamin B complex 1 tab PO QAM 06/03/22 11/29/23 History aspirin 500 mg tablet,delayed 500 - 2,500 mg PO DAILY PRN Pain 09/24/23 11/29/23 History release bismuth subsalicylate 262 mg 524 mg PO QID PRN .gi-upset 09/24/23 11/29/23 History tablet (Pepto-Bismol) tafluprost (PF) 0.0015 % eye drops 2 drp OPB HS 09/24/23 11/29/23 History in a dropperette timolol maleate 0.5 % eye drops 1 drp OPB QAM 09/24/23 11/29/23 History pantoprazole 40 mg tablet,delayed 40 mg PO BID 90 days #180 tabs 10/14/23 11/29/23 Rx release sucralfate 100 mg/mL oral 10 ml PO QID #1,000 mL 10/15/23 11/29/23 Rx suspension (Carafate) hydrocodone 5 mg-acetaminophen 325 1 tab PO TID PRN pain 7 days #21 11/27/23 11/29/23 Rx mg tablet tabs morphine 15 mg tablet,extended 15 mg PO Q12H 7 days #14 tabs 11/27/23 11/29/23 Rx release epinephrine 0.3 mg/0.3 mL 0.3 mg IM DIRECTED PRN Allergic 11/29/23 11/29/23 History injection, auto-injector (EpiPen) Reaction trazodone 150 mg tablet 150 mg PO HS PRN Sleep 11/29/23 11/29/23 History Past Med/Surg History Problem List (Updated 11/29/23 @ 18:14 by Vic Carpenter MD) Iron deficiency Acute alteration in mental status (Acute) Hypokalemia Painful total knee replacement Ulcer at site of surgical anastomosis following bypass of stomach Adenoma Red blood cell antibody positive, compatible PRBC difficult to obtain Vitamin D insufficiency H/O gastric bypass Anxiety Osteoarthritis Neuropathy Chronic pain Anemia (Acute) Medical History (Updated 11/29/23 @ 18:14 by Vic Carpenter MD) Acute hypoxemic respiratory failure Altered mental status Encounter for medication refill Opiate withdrawal Gastric ulcer Left wrist fracture Left wrist pain Gastritis Medical marijuana use has not used several years Diarrhea Encounter for pre-operative examination Melena Acute hypotension Acute GI bleeding Hx MRSA infection dx [facility] years ago, "it was in her blood" Irritable bowel syndrome with constipation Hepatitis C hx - treated History of anesthesia reaction hx of waking up during procedures Bulging discs Scoliosis Spinal stenosis Glaucoma Attention deficit disorder (ADD) Migraine Depression Hypertension hx GI bleed admitted to [facility] 06/2022; no current problems Surgical History History of partial hysterectomy History of bilateral breast reduction surgery History of bilateral tubal ligation Status post right foot surgery x7--hardware in place Status post left foot surgery x7-hardware in place History of open reduction and internal fixation (ORIF) procedure right ankle--hardware in place History of fusion of cervical spine C4-C5--normal ROM History of right shoulder replacement History of total right hip replacement History of total left knee replacement (TKR) x2 History of colonoscopy History of esophagogastroduodenoscopy (EGD) History of cholecystectomy History of appendectomy History of mandibular surgery 1978--wired shut History of tooth extraction History of wisdom tooth extraction History of eye surgery right---scar tissue from cataract sx History of bilateral cataract extraction History of cardiac cath [address] [facility]---"fistula in heart between 2 valves"--no stents; no cardio, just PCP History of lung biopsy right side--benign Family History Mother Colorectal cancer Father Lung cancer Family history of esophageal cancer Brother Family history of esophageal cancer Grandfather (Maternal) Family history of esophageal cancer Other No family history of adverse response to anesthesia Social History Smoking Status: Former smoker Second Hand Exposure: No; Do You Dip or Chew Tobacco: No; Tobacco Cessation Education Requested by Patient: No Hx Alcohol Use: No Hx Substance Use: No Preferred Language: Pashto Communication Ability: Effective Content Editor Required: No Beliefs That Will Affect Care: None Current Living Situation: Alone Current Living Situation Comment: Lives with brother Other Information That Helps Us Care for You: No Feels Safe at Home: Yes Safety Concerns: Feels Safe At This Time Assistive Devices: Cane Review of Systems Review of Systems: As per HPI Physical Exam Constitutional: NAD, vitals WNL. Eyes: Conjunctivae normal. Respiratory: CTA bilaterally. Non labored breathing. No rhonchi, wheezing, or crackles. Cardiovascular: RRR. No murmurs noted. Bilateral 1+ LE edema. Gastrointestinal (Abdomen): Nontender. No masses noted. Skin: No rashes or skin lesions noted. Neurologic: Sensation grossly intact. No FND appreciated. Psychiatric: Alert and oriented. Speech of normal pace and content. Mood and affect congruent. Results & Data Results & Data Vital Signs (Past 12 Hours) Vital Signs Temp Pulse Resp BP Pulse Ox O2 Del Method O2 Flow Rate 11/29/23 03:45 88 11/29/23 03:00 90 17 124/70 96 Nasal Cannula 3 11/29/23 03:00 94 H 18 124/70 95 Nasal Cannula 3 11/29/23 02:00 92 H 17 128/72 95 Nasal Cannula 5 11/29/23 01:30 99 H 20 145/78 H 95 Nasal Cannula 5 11/29/23 01:27 37.4 C 11/29/23 01:00 102 H 20 112/90 96 Nasal Cannula 5 11/29/23 01:00 102 H 18 112/90 95 Nasal Cannula 5 11/29/23 00:23 96 Nasal Cannula 5 11/29/23 00:04 88 L Nasal Cannula 2 11/28/23 23:57 38.2 C H 112 H 16 175/88 H 88 L Room Air 11/28/23 23:54 109 H 16 175/88 H 92 Nasal Cannula 2 11/28/23 23:53 110 H Supervising Physician Co-Signing Physician Notes Attending addendum: I have physically seen this patient, have supervised the medical residents activities, and agree with the H&P unless as otherwise noted. Assessment and Plan: Altered mental status- The patient will be admitted to telemetry for serial cardiac enzymes, serial EKG's, cardiac rhythm monitoring and a 2-D echocardiogram with Dopplers. UDS positive for opiates and MDMA, Alcohol level negative, but will be placed on AWSS protocol CT head negative Respiratory BioFire negative Received 1 L normal saline and Tylenol 1 g IV from the ED Follow urine cultures and blood cultures Clear etiology at this time, however, patient appears to have improved while in the ED, so may be a function of dehydration Hypoxia- Recorded is 88% on room air, with relatively normal-appearing chest x-ray Order CTA chest for further evaluation History of anemia- Hemoglobin 10.5 on admission Continue pantoprazole Chronic pain- UDS positive for opiates as expected No suggestion of inappropriate use of narcotics Resident Activity Tracking Resident Involvement: Resident Care Provided Care Provided: Adult Hospital Medicine (2) Anemia Anemia type: unspecified type Qualified Code(s): D64.9 - Anemia, unspecified (3) Chronic pain Chronic pain type: other chronic pain Qualified Code(s): G89.29 - Other chronic pain
[2023-11-29] MEDS: POTASSIUM CHLORIDE CRTAB 20 MEQ TABCR PO STA (05:04)
[2023-11-29] MEDS ORDERED: POLYETHYLENE (MIRALAX) 17 GM PACK PO PRN (05:05)
[2023-11-29] MEDS ORDERED: MELATONIN 3 MG TAB PO PRN (05:05)
[2023-11-29] MEDS ORDERED: ACETAMINOPHEN 325 MG TAB PO PRN (05:05)
[2023-11-29] MEDS ORDERED: LORazepam 1 MG TAB PO PRN (05:14)
[2023-11-29] MEDS ORDERED: LORazepam 1 MG in SYRINGE 0.5 ML IV PRN (05:14)
[2023-11-29 06:15] LABS: Hematocrit (blood only) 32.2 % (37.0-47.0)
--- NOTE | 2023-11-29 06:51 | Hospitalist Progress Note ---
Date of Service November 29, 2023 Assessment & Plan (1) H/O gastric bypass: (2) Acute alteration in mental status: (3) Hypokalemia: (4) Iron deficiency: Plan Pt is 68 yo female with PMH of recurrent upper GI bleeds (2022), gastroparesis, HTN, and depression presenting after an episode of AMS. 1) AMS - Lab work significant for no leukocytosis, Hgb 10.5, hypokalemia of 3.3, Cr 0.52, glucose 121, lactate 1.4, procal 0.02 - drug screen pos for opiates (pt does have prescriptions for morphine and hydrocodone d/t chronic knee pain- most recently filled 7 day script 11/26, prior to that 10/28 for 26 and 27 day scripts per PDMP) and MDMA (pt prescribed Wellbutrin and Adderall although pt has not had Adderall for at least a month); pt denies illicit drug use- awaiting confirmation studies - Alcohol level neg; however, will place pt on AWSS at risk protocol in case of unexpected withdrawal symptoms - VBG w/out concerning findings: pH 7.40, pCO2 49, pO2 32; BioFire RVP negative -CXR w/o obvious pathology - CT-chest: 1. Limited evaluation in the absence of contrast 2. No gross evidence of consolidation - CT head w/o obvious stroke, bleed, or mass; no acute intracranial abnormality seen -Blood cultures pending -Low suspicion for infectious source at this time d/t no leukocytosis, neg procal/lactate, neg UA; s/p ceftriaxone x1 in ER; will defer further ABX on admission - MRI-Brain: no acute intracranial findings/no foci of restricted diffusion to suggest acute infarcts - Iron panel: Fe, 15; TIBC, 241; %SatTransferrin, 6; transferrin, 190; ferritin pending --> see below (3) - Mg, 1.5; B12, pending 2) Hypoxia - lowest recorded SpO2 88%; originally requiring 5L, now weaned to 3L upon admission - no hx of lung disease - CXR unrevealing; CT chest pending - do not suspect infectious etiology at this time - wean O2 as able 3) Anemia - Hgb, 10.0 <-- 10.5 upon admission (09/24/2023 Hgb of 12.2) - pt with extensive hx of bleeding ulcers; high suspicion for recurrence (despite no symptoms noted by pt) - continue home PPI; hemoccult stools; trend CBC - Iron panel: Fe, 15; TIBC, 241; %SatTransferrin, 6; Transferrin, 190; ferritin, pending - Iron panel suggests inflammatory anemia 4) Hypokalemia - 3.3 upon admission - supplement PRN; trend BMP 5) Chronic pain - pt notes her pain management doc closed his office abruptly leading her to seek a refill recently at the ER - PDMP checked and appropriate with pts history in terms of controlled pain medications - low suspicion for drug misuse/opioid OD contributing to presentation - urine + for opiates as expected; confirmation pending 6) Anxiety - patient on Wellbutrin, 450 mg, daily, PO - positive Ecstasy UDS likely due to Wellbutrin 7) Hx of gastric bypass Diet: heart healthy DVT ppx: will defer in the setting of concern for GI bleed; if Hgb remains stable and hospitalization prolonged, would recommend addition of DVT ppx Code: DNR/DNI Dispo: admit to PCU/tele (2) Anemia: (3) Chronic pain: (4) Hypokalemia: Supervising Physician Co-Signing Physician Notes Attending attestation Pt seen and examined in concert with Dr. Carpenter. In agreement with the documented findings as noted in the resident documentation with any exceptions or additions as noted here. Resting comfortably in bed without acute complaint at present beyond chronic knee pain which is unchanged. On examination, S1/S2 nl RRR no MCG. CTAB. Abd NT/ND BS+ve. Some mild right sided facial droop with CN testing which may be chronic. Slight slowing of speech & distractability but AAOx4 Delirium without apparent etiology - CT without causation - MRI ordered today, as well as TSH, RPR, iron profile. Neurology consultation for ?seizure. UA mildly abnormal without urinary symptoms reported at present, f/u Cx. Else see resident documentation as noted. Subjective Chief Complaint: AMS Primary Care Provider: Sergio Peacock MD Pt is 68 yo female with PMH of recurrent upper GI bleeds (2022), gastroparesis, HTN, and depression presenting after an episode of AMS. Patient feels that since her fall in June, that she's had progressive worsening of word-finding difficulty and short-term memory issues. She has had co-workers that mentioned her behavior to her, wondering if she's had a stroke. Patient had her gastric bypass surgery done in ~ 2005 and has been very compliant in terms of taking recommended vitamin and mineral supplementation post-surgery. Patient was on her pain medication due to spinal stenosis of thoraco-lumbar region and a knee injury suffered during the fall in June. This past week patient said there were 2 days where she states that she felt "normal". Patient also states that she has had lots of FIERRO's recently and that her near vision has worsened this year. In August the patient was on a course of oral steroids (prednisone) due to recent hearing loss. Patient no longer on metoclopramide (stopped Abilify for similar reason), due to onset of tremors w/ this medication. Patient no longer takes trazodone. Patient no longer takes tizanidine. Patient takes sumatriptan for acute migraines. Patient had 2 [id number]-[id number] falls in Jun, 2023. Periodically since Jun, patient has felt "off", patient has continued to hold down 1 (and 2 previously) jobs. 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 Review of Systems Constitutional: + sweats, + fatigue and + weakness; no f ever and no chills Respiratory: + cough; no chest congestion and no dysp coty Cardiovascular: no chest pain and no palpitations Gastrointestinal: + abdominal pain (epigastric pain (4/10) ), + nausea and + constipation (weeklong Hx of constipation (takes nothing)); no vomiting and no diarrhea/loose stools Genitourinary: + urinary frequency (2 month Hx of incre ased freq) and + urinary urgency; no dysuria Neurologic: + falls (3 in calendar year), + localize d weakness (left leg gives out occasionally), + tremor(s) (both hands, both arms), + headache(s) and + memory loss; no tingling and no numbness Psychiatric: + depression (depressed in July, August) , + irritability, + anxiety and + difficulty concentrating Physical Exam Constitutional: WD/WN, vitals as above Respiratory: normal respiratory effort, lungs clear to auscultation Cardiovascular: RRR, no murmur, no edema Extremities: normal capillary refill; no calf tenderness and no pedal edema Gastrointestinal (Abdomen): normal bowel sounds, soft, nontender, no hepatosplenomegaly Musculoskeletal: l. knee pain at baseline since June 2023 fall Neurologic: Speech / Cognition: normal speech Motor/Sensory: + abnormal movement (decreased LLE strength secondary to pain (+4/5 strength)); no sensory deficit Cranial Nerves: PERRL, normal accommodation, EOM intact bilaterally, tongue midline, normal hearing and able to elevate shoulders bilaterally; + abnormal facial strength (slight r. facial droop w/ smile, seen w/ frown lines too pt unaware of this) Coordination: normal [id number]-[id number] test, normal [id number] test and normal rapid alternating movements Psychiatric: A+Ox3, euthymic affect Results & Data Results & Data Vital Signs (Past 12 Hours) Vital Signs Temp Pulse Resp BP Pulse Ox O2 Del Method O2 Flow Rate 11/29/23 06:00 87 13 124/72 95 Nasal Cannula 3 11/29/23 05:06 86 22 119/61 96 Nasal Cannula 3 11/29/23 05:01 85 18 119/61 95 Nasal Cannula 3 11/29/23 04:33 83 19 118/68 95 Nasal Cannula 3 11/29/23 04:00 87 20 128/72 95 Nasal Cannula 3 11/29/23 03:45 88 11/29/23 03:00 90 17 124/70 96 Nasal Cannula 3 11/29/23 03:00 94 H 18 124/70 95 Nasal Cannula 3 11/29/23 02:00 92 H 17 128/72 95 Nasal Cannula 5 11/29/23 01:30 99 H 20 145/78 H 95 Nasal Cannula 5 11/29/23 01:27 37.4 C 11/29/23 01:00 102 H 20 112/90 96 Nasal Cannula 5 11/29/23 01:00 102 H 18 112/90 95 Nasal Cannula 5 11/29/23 00:23 96 Nasal Cannula 5 11/29/23 00:04 88 L Nasal Cannula 2 11/28/23 23:57 38.2 C H 112 H 16 175/88 H 88 L Room Air 11/28/23 23:54 109 H 16 175/88 H 92 Nasal Cannula 2 11/28/23 23:53 110 H
--- NOTE | 2023-11-29 07:20 | CT Scan Report ---
Exam(s): CT CHEST Without Contrast EXAM: CT Chest Without Intravenous Contrast CLINICAL HISTORY: Reason for exam: hypoxia. TECHNIQUE: Axial computed tomography images of the chest without intravenous contrast. Automated exposure control was utilized for the study. A dose lowering technique was utilized adhering to the principles of ALARA. COMPARISON: No relevant prior studies available. FINDINGS: Limitations: Limited evaluation in the absence of contrast. Lungs: Mild dependent atelectatic changes. No mass. Pleural space: Unremarkable. No pneumothorax. No significant effusion. Heart: Coronary artery calcifications. No cardiomegaly. No significant pericardial effusion. Bones/joints: Right total shoulder arthroplasty changes. Degenerative changes in the spine. Partially visualized ACDF changes at C6-C7. No acute fracture. No dislocation. Soft tissues: Unremarkable. Vasculature: See above. Lymph nodes: Unremarkable. No enlarged lymph nodes. Gallbladder and bile ducts: Cholecystectomy changes. Stomach and bowel: Partially visualized Manolo-en-Y gastric bypass changes. Herniation of the gastric pouch and excluded stomach above the esophageal hiatus. IMPRESSION: 1. Limited evaluation in the absence of contrast. 2. No gross evidence of consolidation. 3. Incidental findings as described. Electronically signed by: Cruz Naqvi MD 11/29/23 07:19 AM
--- NOTE | 2023-11-29 07:22 | CT Scan Report ---
Exam(s): CT HEAD Without Contrast EXAM: CT Head Without Intravenous Contrast CLINICAL HISTORY: Reason for exam: AMS. TECHNIQUE: Axial computed tomography images of the head/brain without intravenous contrast. CTDI is 69.41 mGy and DLP is 1650.15 mGy-cm. Automated exposure control was utilized for the study. A dose lowering technique was utilized adhering to the principles of ALARA. COMPARISON: No relevant prior studies available. FINDINGS: Brain: No acute intracranial abnormality. Consider MRI if there is further concern. There are a few areas of decreased attenuation in the deep cerebral white matter consistent with mild small vessel ischemic/degenerative changes. The cerebral and cerebellar sulci are mildly prominent consistent with mild brain atrophy. No hemorrhage. Ventricles: Unremarkable. No ventriculomegaly. Bones/joints: Unremarkable. No acute fracture. Soft tissues: Unremarkable. Vasculature: Atherosclerotic disease. Sinuses: Unremarkable as visualized. Mastoid air cells: Unremarkable as visualized. No mastoid effusion. IMPRESSION: No acute intracranial abnormality. Consider MRI if there is further concern. Electronically signed by: Cruz Naqvi MD 11/29/23 07:21 AM
--- NOTE | 2023-11-29 07:36 | XRay Report ---
XR chest 1V portable CLINICAL HISTORY: Sepsis. COMPARISON STUDY: Chest radiograph September 24, 2023. FINDINGS: Right shoulder arthroplasty and postoperative findings within the cervical spine are incide ntally noted. Lung volumes are normal. Lungs are clear. There is no pneumothorax or pleural effusion. Cardiac size is normal. There is a small hiatal hernia. There is no evidence for pulmonary edema. IMPRESSION: No acute cardiopulmonary findings. ACT 112: Negative or not required by law. Electronically signed by: Shaggy Burris M.D. 11/29/2023 7:35 AM
[2023-11-29] MEDS ORDERED: traZODone HCL 50 MG TAB PO PRN (08:13)
[2023-11-29] MEDS: MoRPHine SULFATE CR 15 MG TABCR PO SCH (08:43)
[2023-11-29] MEDS: buPROPion XL 300 MG TABCR PO SCH (08:44)
[2023-11-29] MEDS: SUCRALFATE 1 GM/10 ML UDC PO SCH (08:44)
[2023-11-29] MEDS: PANTOprazole 40 MG TAB PO SCH (08:44)
[2023-11-29] MEDS: buPROPion XL 150 MG TABCR PO SCH (08:44)
[2023-11-29] MEDS: GABAPENTIN 600 MG TAB PO SCH (11:49)
[2023-11-29] MEDS: TIMOLOL MALEATE 0.5% OP SOLN 5 ML BTL OPB SCH (11:49)
[2023-11-29] MEDS: HYDROCODONE/ACETAMOPHEN 5/325MG TAB PO PRN (11:52)
[2023-11-29 12:29] LABS: Thyroid Stimulating Hormone 1.59 uIu/ml (0.300-4.500)
--- NOTE | 2023-11-29 14:19 | Electrocardiogram Report ---
Test Reason : Blood Pressure : / mmHG Vent. Rate : 109 BPM Atrial Rate : 109 BPM P-R Int : 172 ms QRS Dur : 090 ms QT Int : 314 ms P-R-T Axes : 051 -11 055 degrees QTc Int : 422 ms Sinus tachycardia Otherwise normal ECG When compared with ECG of 24-SEP-2023 18:38, No significant change was found Confirmed by Dayton Hagan ([id number]) on 11/29/2023 2:18:35 PM Referred By: REFERRED SELF Confirmed By:Dayton Hagan
--- NOTE | 2023-11-29 14:32 | Magnetic Resonance Report ---
MRI OF THE BRAIN WITHOUT CONTRAST CLINICAL HISTORY: Altered mental status. COMPARISON STUDY: Head CT November 29, 2023 at 3:04 AM. TECHNIQUE: Utilizing a 1.5 Nadia magnet and dedicated coil, multiplanar, multiecho imaging of the bra in was performed without IV contrast. FINDINGS: There are no foci of restricted diffusion to suggest acute infarct. No acute intracranial h emorrhage, midline shift or mass effect is present. Ventricular system is unremarkable. Basal cistern s are patent. There are no extra-axial collections. Flow-voids for the major intracranial vessels are present. No intracranial masses are identified on unenhanced exam. Coronal FLAIR sequence is mildly compromised by motion artifact. Calvarial signal is normal. There is no evidence for sinusitis. There is no mastoid fluid. IMPRESSION: No acute intracranial findings. ACT 112: Negative or not required by law. Electronically signed by: Shaggy Burris M.D. 11/29/2023 2:30 PM
[2023-11-29 18:07] LABS: Ferritin 81.2 ng/ml (8-388)
--- NOTE | 2023-11-29 18:21 | Neurology Consultation ---
Date of Consultation November 29, 2023 Assessment & Plan (1) Acute alteration in mental status: History of Present Illness Attending Physician: Bebeto Uribe MD History of Present Illness pt currently back to baseline and AOx4. no confusion. mri brain negative. chart reviewed. admission HPI: This is a 68-year-old female presenting for altered mental status. Patient is poorly found in a dry parking lot as she lost her keys to her car and was locked out. She had been acting somewhat confused and EMS was alerted. Upon my evaluation, patient is appear oriented and answering all questions appropriately. She notes that she feels somewhat weak and has had increased urination and generalized fatigue for the past 2 weeks. Her mother think she was having a stroke today but otherwise patient reports no previous history of stroke. She notes she has chronic left knee pain. Allergies Allergy/AdvReac Type Severity Reaction Status Date / Time bee venom protein (honey bee) Allergy Severe Anaphylaxis Verified 11/29/23 01:06 sulfamethoxazole Allergy Unknown at age 20, Verified 11/29/23 01:06 can not remember what happened trimethoprim Allergy Unknown at age 20, Verified 11/29/23 01:06 can not remember what happened lactose AdvReac Intermediate ice cream Verified 11/29/23 04:52 gives her diarrhea milk AdvReac Intermediate Diarrhea Verified 11/29/23 01:06 Home Medications Medication Instructions Recorded Confirmed Type bupropion HCl 150 mg 24 hr tablet, 150 mg PO QAM 06/03/22 11/29/23 History extended release (Wellbutrin XL) bupropion HCl 300 mg 24 hr tablet, 300 mg PO QAM 06/03/22 11/29/23 History extended release (Wellbutrin XL) dextroamphetamine-amphetamine 30 30 mg PO BID 06/03/22 11/29/23 History mg tablet gabapentin 600 mg tablet 1,800 mg PO BID 06/03/22 11/29/23 History metoclopramide HCl 10 mg tablet 10 mg PO BID PRN Nausea 06/03/22 11/29/23 History multivitamin (Multiple Vitamins 1 tab PO QAM 06/03/22 11/29/23 History tablet) sumatriptan succinate 100 mg tablet 100 mg PO UD PRN Migraine Headache 06/03/22 11/29/23 History tizanidine 4 mg tablet 4 mg PO HS PRN MUSCLE SPASMS 06/03/22 11/29/23 History vitamin B complex 1 tab PO QAM 06/03/22 11/29/23 History aspirin 500 mg tablet,delayed 500 - 2,500 mg PO DAILY PRN Pain 09/24/23 11/29/23 History release bismuth subsalicylate 262 mg 524 mg PO QID PRN .gi-upset 09/24/23 11/29/23 History tablet (Pepto-Bismol) tafluprost (PF) 0.0015 % eye drops 2 drp OPB HS 09/24/23 11/29/23 History in a dropperette timolol maleate 0.5 % eye drops 1 drp OPB QAM 09/24/23 11/29/23 History pantoprazole 40 mg tablet,delayed 40 mg PO BID 90 days #180 tabs 10/14/23 11/29/23 Rx release sucralfate 100 mg/mL oral 10 ml PO QID #1,000 mL 10/15/23 11/29/23 Rx suspension (Carafate) hydrocodone 5 mg-acetaminophen 325 1 tab PO TID PRN pain 7 days #21 11/27/23 11/29/23 Rx mg tablet tabs morphine 15 mg tablet,extended 15 mg PO Q12H 7 days #14 tabs 11/27/23 11/29/23 Rx release epinephrine 0.3 mg/0.3 mL 0.3 mg IM DIRECTED PRN Allergic 11/29/23 11/29/23 History injection, auto-injector (EpiPen) Reaction trazodone 150 mg tablet 150 mg PO HS PRN Sleep 11/29/23 11/29/23 History Patient History Medical History (Updated 11/29/23 @ 18:14 by Vic Carpenter MD) Acute hypoxemic respiratory failure Altered mental status Encounter for medication refill Opiate withdrawal Gastric ulcer Left wrist fracture Left wrist pain Gastritis Medical marijuana use has not used several years Diarrhea Encounter for pre-operative examination Melena Acute hypotension Acute GI bleeding Hx MRSA infection [facility] years ago, "it was in her blood" Irritable bowel syndrome with constipation Hepatitis C hx - treated History of anesthesia reaction hx of waking up during procedures Bulging discs Scoliosis Spinal stenosis Glaucoma Attention deficit disorder (ADD) Migraine Depression Hypertension hx GI bleed admitted to [facility] 06/2022; no current problems Surgical History History of partial hysterectomy History of bilateral breast reduction surgery History of bilateral tubal ligation Status post right foot surgery x7--hardware in place Status post left foot surgery x7-hardware in place History of open reduction and internal fixation (ORIF) procedure right ankle--hardware in place History of fusion of cervical spine C4-C5--normal ROM History of right shoulder replacement History of total right hip replacement History of total left knee replacement (TKR) x2 History of colonoscopy History of esophagogastroduodenoscopy (EGD) History of cholecystectomy History of appendectomy History of mandibular surgery 1978--wired shut History of tooth extraction History of wisdom tooth extraction History of eye surgery right---scar tissue from cataract sx History of bilateral cataract extraction History of cardiac cath 2005 [facility]---"fistula in heart between 2 valves"--no stents; no cardio, just PCP History of lung biopsy right side--benign Family History Mother Colorectal cancer Father Lung cancer Family history of esophageal cancer Brother Family history of esophageal cancer Grandfather (Maternal) Family history of esophageal cancer Other No family history of adverse response to anesthesia Social History Smoking Status: Former smoker Second Hand Exposure: No; Do You Dip or Chew Tobacco: No; Tobacco Cessation Education Requested by Patient: No Hx Alcohol Use: No Hx Substance Use: No Preferred Language: Serbian Communication Ability: Effective Transmission Specialist Required: No Beliefs That Will Affect Care: None Current Living Situation: Alone Current Living Situation Comment: Lives with brother Other Information That Helps Us Care for You: No Feels Safe at Home: Yes Safety Concerns: Feels Safe At This Time Assistive Devices: Cane Exam (Neuro) Physical Exam: HEENT: normocephalic grossly Neuro: Mental: AOx4, fluent speech, normal comprehension, no apraxia, no L/R confusion, no neglect CN: Full EOM, symmetric face, midline T/U/P, Motor: No abnormal movements, normal tone, 5/5 t/o bilaterally (left leg deferred testing as pt does not want left leg touched due to pain). Sens: intact to touch b/l grossly Coord: intact DTR: 1+ sym b/l Gait: intact grossly Impression: 68 yo female with subjective confusion/cognitive symptoms chronically in setting of polypharmacy and UTI and depression. her mri brain and work up is reassuring and it is likely that her symptoms are from polypharmacy (including opiates, high does of neurontin, and psych meds) and possibly UTI contributing also. I do not feel she has seizure disorder or s troke. Recommendations: continue current work up and care. i do not see need for further neuro work up at this point consider psych consult. f/u on Urine cx and possible tx. consider reducing neurontin dosage and avoid using opiates much as possible. please call again if new question. Chart reviewed I have spent more than 50% educating patient about potential diagnosis and neurological evaluation and coordinating care with patient's treatment team. Total time spent (including chart review and coordination of care): 60 min (this includes chart review). Results & Data Vital Signs (Past 12 Hours) Vital Signs Temp Pulse Pulse Pulse Resp BP BP 11/29/23 15:28 36.7 C 72 19 11/29/23 11:21 37.1 C 71 16 11/29/23 09:26 68 11/29/23 08:00 36.8 C 68 14 128/77 11/29/23 07:24 65 16 127/60 BP Pulse Ox O2 Del Method O2 Flow Rate 11/29/23 15:28 128/65 95 Room Air 11/29/23 11:21 134/72 92 Room Air 11/29/23 09:26 11/29/23 08:00 95 Room Air 11/29/23 07:24 96 3 PG Care Time/CCT Total # of Minutes Spent Total Time Spent with Patient: Total time spent is greater than 50% in coordination of care (as documented) at patient's floor/unit and/or counseling patient: Coding Level of Care Code 89925 IN/OBS CONSULT LVL 4,60M Diagnoses Acute alteration in mental status R41.82
--- NOTE | 2023-11-29 19:01 | Billing Data ---
Date of Service November 29, 2023 Coding Level of Care Code 52748 INT INP/OBS CARE
[2023-11-29] MEDS: POTASSIUM CHLORIDE 20 MEQ/15 ML UDC PO STA (19:54)
[2023-11-29] MEDS: LATANOPROST 0.005% OP SOLN 2.5 ML BTL OPB SCH (20:10)
[2023-11-30 06:51] LABS: Hematocrit (blood only) 29.9 % (37.0-47.0); Hemoglobin 9.1 g/dl (12.0-16.0); Mean Corpuscular Hemoglobin 26.6 pg (25.0-34.0); Mean Corpuscular Hgb Conc 30.4 g/dL (32.0-36.0); Mean Corpuscular Volume 87.4 fL (80.0-100.0); Mean Platelet Volume 8.8 fL (9.4-12.4); Platelet Count 273 K/uL (130-400); RDW Coefficient of Variation 18.9 % (11.5-14.5); RDW Standard Deviation 60.8 fL (36.4-46.3); Red Blood Count 3.42 M/uL (4.20-5.40); White Blood Count 4.17 K/ul (4.8-10.8)
--- NOTE | 2023-11-30 06:52 | Hospitalist Progress Note ---
Date of Service November 30, 2023 Assessment & Plan (1) H/O gastric bypass: (2) Acute alteration in mental status: (3) Hypokalemia: (4) Iron deficiency: Plan Pt is 68 yo female with PMH of recurrent upper GI bleeds (2022), gastroparesis, HTN, and depression presenting after an episode of AMS. #AMS, resolved - labs unremarkable for metabolic or infectious sources as a cause for AMS - no prior hx of AMS or seizures - drugs screen + opioids but pt has script and MDMA but has wellbutryin and adderall (although no adderall refill in 1 mo), alcohol neg - CT head wnl, MRI brain wnl, - ultimately unsure why pt has episode of AMS but this appears to have totally resolves and neuro consulted and recommend no further workup as pt is back to baseline #Anemia - Hgb, 10.5 upon admission (09/24/2023 Hgb of 12.2), today 9.1 - pt with extensive hx of bleeding ulcers; high suspicion for recurrence (despite no symptoms noted by pt) - Iron panel: Fe, 15; TIBC, 241; %SatTransferrin, 6; Transferrin, 190; ferritin 81.2 - continue home PPI; #Hypoxia, resolved - lowest recorded SpO2 88%; originally requiring 5L, now on RA - no hx of lung disease - CXR unrevealing; CT chest wnl - do not suspect infectious etiology at this time #Chronic pain - pt notes her pain management doc closed his office abruptly leading her to seek a refill recently at the ER - PDMP checked and appropriate with pts history in terms of controlled pain medications - low suspicion for drug misuse/opioid OD contributing to presentation - urine + for opiates as expected #Anxiety - patient on Wellbutrin, 450 mg, daily, PO - positive Ecstasy UDS likely due to Wellbutrin #Hx of gastric bypass DVT ppx: will defer in the setting of concern for GI bleed; if Hgb remains stable and hospitalization prolonged, would add DVT ppx Admission and Anticipated Discharge Date Admission Date: November 29, 2023 Subjective Pt is 68 yo female with PMH of recurrent upper GI bleeds (2022), gastro paresis, HTN, and depression presenting after an episode of AMS. Today, pt states she generally feels well. Alert and oriented x3. No questions or complaints at this time. Review of Systems Review of Systems: As per HPI Physical Exam Physical Exam: General:Alert and oriented, no acute distress, HEENT: Normocephalic, moist oral mucosa, Cardio: Regular rate and rhythm, no murmur, Resp:Lungs clear to auscultation b/l, no wheezes or rhonchi, Skin: Warm, pink, dry, Results & Data Results & Data Vital Signs (Past 12 Hours) Vital Signs Temp Pulse Pulse Resp BP Pulse Ox O2 Del Method 11/30/23 03:14 36.4 C L 68 18 127/75 92 Room Air 11/29/23 23:27 36.4 C L 72 19 134/72 94 Room Air 11/29/23 22:56 74 11/29/23 19:34 36.6 C 70 17 139/75 91 Room Air
[2023-11-30] MEDS ORDERED: ENOXAPARIN INJ 40 MG/0.4 ML SYR SQ SCH (09:00)
[2023-11-30 10:26] LABS: Calcium 8.8 mg/dl (8.6-10.3); Potassium 3.9 mmol/L (3.5-5.1)
[2023-11-30 10:31] LABS: BUN Creatinine Ratio 19.2 (10-20); Creatinine Clr Calc Pharmacy 122.9 ml/min; Est GFR (African American) 114.6 ml/min; Est GFR (Non-African American) 98.9 ml/min
[2023-11-30] MEDS: ONDANSETRON INJ 2 MG/ML 2 ML VIAL IV PRN (13:28)
--- NOTE | 2023-11-30 16:18 | Discharge Summary ---
Date of Service November 30, 2023 Admission HPI Per Admitting Provider Pt is 68 yo female with PMH of recurrent upper GI bleeds (2022), gastroparesis, HTN, and depression presenting after an episode of AMS. Pt found brought in via EMS from grocery store parking lot of being unable to get into her car and acting confused. Pt explains that she does not recall this episode. The last thing she remembers is shopping. She does not remember how she got to her car. However, she does recall being very stressed while shopping d/t the fact that she locked the keys in her car. She remembers waking up with lots of people around her and her riding in the ambulance. She notes that her PCP told her that he is suspicious that she may have had a series of strokes throughout this year. She has been having issues with her memory since Jun 2023. She also endorses some trouble walking and with word finding. She denies other hx of stroke or MD. She denies any recent med changes aside from being taken off etodolac and reglan- no new medications have been added. She denies drinking alcohol and denies drug use (specifically, MDMA). Pt endorses long standing hx of chronic left knee pain and bleeding ulcers. She has not had any recent increase in her pain medications and denies BRBPR/dark stools. In the ER, she was given 1L NS, Tylenol 1000mg x1, and ceftriaxone x1. Admission Exam Per Admitting Provider Constitutional: NAD, vitals WNL. Eyes: Conjunctivae normal. Respiratory: CTA bilaterally. Non labored breathing. No rhonchi, wheezing, or crackles. Cardiovascular: RRR. No murmurs noted. Bilateral 1+ LE edema. Gastrointestinal (Abdomen): Nontender. No masses noted. Skin: No rashes or skin lesions noted. Neurologic: Sensation grossly intact. No FND appreciated. Psychiatric: Alert and oriented. Speech of normal pace and content. Mood and affect congruent. Principal Diagnosis Altered mental status Discharge Exam General:Alert and oriented, no acute distress, HEENT: Normocephalic, moist oral mucosa, Cardio: Regular rate and rhythm, no murmur, Resp:Lungs clear to auscultation b/l, no wheezes or rhonchi, Skin: Warm, pink, dry, Discharge Data Allergies Allergy/AdvReac Type Severity Reaction Status Date / Time bee venom protein (honey bee) Allergy Severe Anaphylaxis Verified 11/29/23 01:06 sulfamethoxazole Allergy Unknown at age 20, Verified 11/29/23 01:06 can not remember what happened trimethoprim Allergy Unknown at age 20, Verified 11/29/23 01:06 can not remember what happened lactose AdvReac Intermediate ice cream Verified 11/29/23 04:52 gives her diarrhea milk AdvReac Intermediate Diarrhea Verified 11/29/23 01:06 Consultations 11/29/23 02:27 ED Decision to Admit Stat 11/29/23 11:33 Consult Neurology Routine Ordered Studies 11/29/23 02:28 CT head/brain wo con Stat 11/29/23 02:33 CT chest diagnostic wo con Stat 11/29/23 08:01 MRI Brain [MR brain wo con] Routine Hospital Course (1) H/O gastric bypass: (2) Acute alteration in mental status: (3) Hypokalemia: (4) Iron deficiency: Plan Pt is 68 yo female with PMH of recurrent upper GI bleeds (2019, 2022), gastroparesis, HTN, and depression presenting after an episode of AMS. #AMS, resolved - labs unremarkable for metabolic or infectious sources as a cause for AMS - no prior hx of AMS or seizures - drugs screen + opioids but pt has script and MDMA but has wellbutryin and adderall (although no adderall refill in 1 mo), alcohol neg - CT head wnl, MRI brain wnl, - ultimately unsure why pt has episode of AMS but this appears to have totally resolves and neuro consulted and recommend no further workup as pt is back to baseline - etiology of AMS polypharmacy vs mild dehydration, advised pt that given the number of medications she is on that a pill box for am and pm meds may help to avoid missing doses or accidental double dosing #Anemia, chronic - Hgb, 10.5 upon admission (09/24/2023 Hgb of 12.2), today 9.1 - pt with extensive hx of bleeding ulcers; no active signs of bleeding this admission - Iron panel: Fe, 15; TIBC, 241; %SatTransferrin, 6; Transferrin, 190; ferritin 81.2 - continue home PPI on discharge #Hypoxia, resolved - lowest recorded SpO2 88%; originally requiring 5L, now on RA - no hx of lung disease - CXR unrevealing; CT chest wnl - do not suspect infectious etiology at this time as scans negative and has resolved #Chronic pain, resolved - pt notes her pain management doc closed his office abruptly leading her to seek a refill recently at the ER - PDMP checked and appropriate with pts history in terms of controlled pain medications - low suspicion for drug misuse/opioid OD contributing to presentation - urine + for opiates as expected Will follow up in our [facility] office December 10 at 1:[address] Antoine, as her current pain management doctor quit and her pcp is unable to fill opioids. Total Time Total Time Spent Total Time Spent (In Minutes): <30 Discharge Plan Discharge Items Patient Disposition: Home - Self-Care Reason For Visit: ams Discharge Diagnosis: Altered mental status Activity: Resume your previous activity Non-emergency contact: Primary Care Provider Call non-emergency contact if: you have any medication questions and your symptoms worsen Follow-up/Referrals: Sergio Peacock MD [Primary Care Provider] - Diet: Regular Addtl Attending Provider Instructions: You were admitted to the hospital for altered mental status. While we cannot be 100% sure why you had this episode of forgetting what happened over the course of a few hours, we believe it may have been what we call transient global amnesia, or a short duration of forgetfulness, in the setting of mild dehydration or in relation to the drugs you take at home. As we discussed, you are on a lot of medications and it can be very easy to accidentally take a pill twice or forget to take it when not using an AM and PM labeled pill box. Usually when this happens, people do not even realized they have missed or doubled up. We advise you get a pill box that is labeled for AM and PM medications to further help ensure you only take what you need when you need to take them. On the dehydration front, try to keep well hydrated with 60-80 ounces of noncaffeinated beverages daily, more if out doing yard work, working out, or out in the hot weather. In terms of your chronic pain, I believe the best plan going forward to get your prescriptions refilled is for you to follow-up in our [facility] clinic with me (Dr. Odalys Antoine) so I can help bridge you to a new pain management doctor. I have made an appointment for you for next week, ThursdayDecember 10 at 1:25 pm. Our clinic is located on the second floor of the building in front of the hospital and our address is [address] [place] [address] [address], [place] [address]. 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 If you cannot make this appointment, please call [phone] during the hours of 8 am and 4:30 pm M-F (excluding this for the ) to let our office know. Thank you for letting us participate in your care. Pending Studies at Discharge: No Stand-Alone Forms: [facility] Medications and DC Order Prescriptions: Continued pantoprazole 40 mg tablet,delayed release (DR/EC) 40 mg PO BID 90 Days Qty: 180 1RF sucralfate [Carafate] 100 mg/mL suspension 10 ml PO QID Qty: 1000 2RF Rx Instructions: LAST FILLED 10/16/23 FOR 25 DAYS. swish in mouth and swallow; use after food/drink bupropion HCl [Wellbutrin XL] 300 mg Tablet Extended Release 24 Hr 300 mg PO QAM Rx Instructions: TAKE WITH 150 MG ER = 450MG EVERY MORNING bupropion HCl [Wellbutrin XL] 150 mg Tablet Extended Release 24 Hr 150 mg PO QAM Rx Instructions: TAKE WITH 300MG XL =450MG XL EVERY MORNING sumatriptan succinate 100 mg tablet 100 mg PO UD MDD 2TABS PRN (Reason: Migraine Headache) Rx Instructions: ONE TABLET, NEEDED FOR MIGRAINE, MAY REPEAT IN TWO HOURS. MAX DAILY = 2 TABS gabapentin 600 mg tablet 1,800 mg PO BID dextroamphetamine-amphetamine 30 mg tablet 30 mg PO BID Rx Instructions: LAST FILLED 09/25/23 FOR 60 TABS/30 DAYS. metoclopramide HCl 10 mg tablet 10 mg PO BID PRN (Reason: Nausea) vitamin B complex Tablet 1 tab PO QAM multivitamin [Multiple Vitamins] Tablet 1 tab PO QAM epinephrine [EpiPen] 0.3 mg/0.3 mL Auto-Injector 0.3 mg IM DIRECTED PRN (Reason: Allergic Reaction) hydrocodone-acetaminophen 5-325 mg tablet 1 tab PO TID PRN (Reason: pain) 14 Days Qty: 42 0RF morphine 15 mg tablet extended release 15 mg PO Q12H 14 Days Qty: 28 0RF aspirin 500 mg Tablet,Delayed Release (Dr/Ec) 500 - 2,500 mg PO DAILY PRN (Reason: Pain) Pepto-Bismol 262 mg Tablet 524 mg PO QID PRN (Reason: .gi-upset) timolol maleate 0.5 % drops 1 drp OPB QAM tafluprost (PF) 0.0015 % dropperette 2 drp OPB HS Discontinued tizanidine 4 mg tablet 4 mg PO HS PRN (Reason: MUSCLE SPASMS) Rx Instructions: LAST FILLED 01/07/23 FOR 270 TABS/90 DAYS. trazodone 150 mg tablet 150 mg PO HS PRN (Reason: Sleep) Discharge Orders: Discharge Order (Routine); Ordered 11/30/23 Ordered By: Odalys Antoine Admission Data Admit Date/Time: 11/29/23 05:05 Attending Provider: Candelario Morgan Admit Provider: Brie Payne Primary Care Provider: Sergio Peacock Other Providers: Bebeto Uribe; Daniel Anna; Quinton Spivey; Krissy Fonseca; Nadia Pulliam; Kalani Marshall; Malcolm Moody Other Interventions: Discharge Summary Assessment (RN) Last Done: 11/30/23 17:20 Supervising Physician Co-Signing Physician Notes I personally examined the patient and verified all delacruz points of history and exam, discussed case, and agree with decision making with Dr Antoine feels good. Feels like her normal self. Does not really recall events around admission. Once she became lucid again, however, she has stayed that way. Vitals noted, in general she is awake and alert oriented x 3 pleasant no d istress. HEENT normocephalic atraumatic mucous membranes moist. Breathing unlabored no accessory muscle use good effort. Skin shows no rashes no pallor or icterus. Neuro without focal deficits. Altered mental statustotally resolved. No CUSTOMER SERVICE ADMINISTRATOR injury; neurology input appreciateddoes not appear to be a primary neurologic process. As far as deliriumdoes not appear to have been dehydrated or infected in any way, accidental polypharmacy certainly could be the culpritwe discussed how this could, bowelshe keeps her medicines and attacker walks quite well organized, but does simply take them from the pill bottle, and we discussed how it could be very easy to take her meds without really being aware that she had taken them, forget that she had taken them, and then accidentally double dose. In that respect she will get daily pill counters so that she can slick out her pills and know whether or not she took them that day. Is no longer on tizanidine or trazodone. If it was not accidental polypharmacy, and a loose way a transient global amnesia phenotype could fit, and in that respect, the reassuring stroke workup is also doubly reassuring. Safe/stable for home. Chronic krupa notes having been on stable dosing of morphine and Vicodin for years as prescribed by pain management doctor she saw a reliably (review of the PDMP suggests this is reliable/is the case) but that her pain management doc recently and abruptly closed his practice due to his own health issues. Her PCPs entire group does not prescribe opiates at all, and understandably she has had an extremely difficult time finding a pain management physician who will prescribe medications. We discussed different optionsand we discussed that ultimately following up with the pain management physician would be optimal, but in the meantime PCP being able to act as a "bridge" so that she does not suffer withdrawal would be quite reasonable, and given that her PCP is entire practice does not prescribe opiates, she can transition to [facility] for ongoing care, at least until pain management can be set up. She was seen in the ER last week running out of medications and a week long refill was prescribed; she was scheduled with Dr Antoine At [facility] at the end of next weekso as to prevent withdrawal/medication crises I prescribed an additional 14 days of her chronic regimen so that she has enough to get through to her follow-up visit with a short buffer if needed for gathering details as she establishes with her new PCP. Will ask nurse navigator to assist in finding pain management as well. Resident Activity Tracking Resident Involvement: Resident Care Provided Care Provided: Adult Hospital Medicine
--- NOTE | 2023-11-30 19:10 | Billing Data ---
Date of Service November 30, 2023 Coding Level of Care Code 96884 IN/OBS DISCH 30 MIN/LESS
[2023-11-30] MEDS ORDERED: LATANOPROST 0.005% OP SOLN 2.5 ML BTL OPB SCH (21:00)
== END 2023-11-30 18:21 | disposition home or self-care (01) | DRG 918 ==
LOC: SUATTDRO → ED 23:46 → SUATTDRO 11-29 05:05 → 2S 11-29 05:05

== ENCOUNTER 2023-12-13 11:44 | Inpatient (IN) ==
--- OUTSIDE RECORDS SUMMARY | 2023-12-13 11:49 | External Medical Summary | Summary of Care ---
Author Name Unknown Organization [facility] Address [address] [place] [address] Phone [phone] Care Team Providers Care Pricing Coordinator Name Role Phone Sergio Peacock MD Primary Care Provider [phone] Reason for Visit * Reason Comments Follow Up Imaging studies Encounter Details Date Type Department Care Team ([facility] st Contact Info) Description 12/01/2023 12:30 PM EDT Telemedicine Orthopaedics, [facility] [address] [place] [address] Sergio Thomas, DO [address] [place] [id number] History of revision of total replacement of left knee joint*; Chronic pain of left knee Allergies Active Allergy Reactions Criticality Noted Date Comments Bee Venom Anaphylaxis High 10/09/2015 Other reaction(s): Other (document details in comments), Unspecified anaphylasis Ciprofloxacin 10/09/2015 Other reaction(s): Other (See Comments) nightmares Milk (Cow) 10/09/2015 Other reaction(s): Other (See Comments) Bloating, IBS Other Allergy (See Comments) 03/05/2020 Adhesive Tape Sulfamethoxazole-Trimetho prim Anaphylaxis,Hives High 10/09/2015 Other reaction(s): Other (document details in comments) documented as of this encounter (statuses as of 12/01/2023) Medications Medication Sig Dispensed Refills Start Date End Date Status ARIPiprazole 5 MG Oral Tablet (Abilify) Take 1 Tablet by mouth every night at bedtime. Active SUMAtriptan Succinate 100 MG Oral Tablet (Imitrex) Take 100 mg by mouth every 2 hours as needed for Migraine. Active Melatonin 10 MG Oral Tablet Take 2 Tablets by mouth at bedtime. Active Dextroamphetamine Sulfate 30 MG Oral Tablet (Zenzedi) Take 30 mg by mouth 2 times a day. Active Metoclopramide HCl 10 MG Oral Tablet (REGLAN) Take 1 Tablet by mouth in the morning. Active Morphine Sulfate ER 15 MG Oral Tablet Extended Release (Ms Contin) Take 1 Tablet by mouth in the morning and 1 Tablet before bedtime. 08/27/2021 Active Pantoprazole Sodium 40 MG Oral Tablet Delayed Release (Protonix) 06/25/2021 Active Ledipasvir-Sofosbuv ir 90-400 MG Oral Tablet Take by mouth 1 Tablet in the morning. Active Latanoprost 0.005 % Ophthalmic Solution (Xalatan) 1 Drop in the morning. Active Fluticasone Propionate HFA 110 MCG/ACT Inhalation Aerosol (Flovent Hfa) Inhale by mouth 1 Puff in the morning AND 1 Puff before bedtime. Active Bumetanide 1 MG Oral Tablet (Bumex) Take 1 Tablet by mouth in the morning. Active Bimatoprost 0.03 % External Solution (Latisse) 07/17/2021 Active Amoxicillin 500 MG Oral Capsule (Amoxil) TAKE FOUR CAPSULES BY MOUTH ONE HOUR BEFORE APPOINTMENT 07/30/2021 Active SUMAtriptan Succinate 4 MG/0.5ML Subcutaneous Solution Auto-injector (Imitrex STATdose System) use 1 injection every day as needed 12 mL 1 03/19/2023 Active predniSONE 10 MG Oral Tablet (Deltasone) Take 6 tab daily x 14 days, then 4 tab daily x 2 days, 2 tab daily x 3 days. 98 Tablet 07/24/2023 Active buPROPion HCl ER (XL) 150 MG Oral Tablet Extended Release 24 Hour (Wellbutrin XL) Take one tablet by mouth every day in the evening (total daily dose 450mg) 90 Tablet 08/01/2023 Active buPROPion HCl ER (XL) 300 MG Oral Tablet Extended Release 24 Hour (Wellbutrin XL) take 1 tablet by mouth every day in the am with 150mg to make 450mg 90 Tablet 2 08/19/2023 Active Gabapentin 600 MG Oral Tablet (Neurontin) take 2 tablets by mouth three times daily 540 Tablet 1 09/11/2023 Active documented as of this encounter (statuses as of 12/01/2023) Active Problems Problem Noted Date Diagnosed Date Upper gastrointestinal bleed 03/04/2020 Chronic low back pain 03/04/2020 Migraine 03/04/2020 Essential hypertension 03/04/2020 Depression 03/04/2020 documented as of this encounter (statuses as of 12/01/2023) Social History Tobacco Use Types Packs/Day Years Used Date Smoking Tobacco: Never Smokeless Tobacco: Never Alcohol Use Standard Drinks/Week Comments Yes 0 (1 standard drink = 0.6 oz pur e alcohol) occasional Utilities Answer Date Recorded Do you have trouble paying y our heating, water, or electric bill? (Adult - for ages 18 years and over) Not on file 11/17/2023 Is your family able to pay t he heat, water, or electric bill? (Household - for ages 0-17 years) Not on file 11/17/2023 Does your family have access to good internet? (Household - for ages 0-17 years) Not on file 11/17/2023 Social Connections Answer Date Recorded How often do you feel lonely or isolated from those around you? (Adult - for ages 18 years and over) Not on file 11/17/2023 Sex and Gender Information Value Date Recorded Sex Assigned at Female 12/14/2022 5:28 AM EDT Gender Identity Female 12/14/2022 5:28 AM EDT Sexual Orientation Straight 10/11/2023 4: 47 AM EDT Job Start Date Occupation Industry Not on file Not on file Not on file documented as of this encounter Functional Status Functional Status Response Date of Assess ment Are you deaf or do you have serious difficulty h earing? No 03/04/2020 Are you blind or do you have serious difficulty seeing, even when wearing glasses? No 03/04/2020 Do you have serious difficul ty walking or climbing stairs? (5 years old or older) No 03/04/2020 Do you have difficulty dress ing or bathing? (5 years old or older) No 03/04/2020 Because of a physical, menta l, or emotional condition, do you have difficulty doing errands alone such as visiting a doctor s office or shopping? (15 years old or older) No 10/04/20 20 Cognitive Status Response Date of Assessm ent Because of a physical, menta l, or emotional condition, do you have serious difficulty concentrating, remembering, or making decisions? (5 years old or older) No 03/04/2020 documented as of this encounter Progress Notes * Sergio Thomas DO - 12/01/2023 3:33 PM EDT Telephonic appointment needs to be rescheduled as current imaging studies have not been completed for review and discussion. documented in this encounter Plan of Treatment Upcoming Encounters Date Type Department Care Team (Late st Contact Info) Description 12/16/2023 2:15 PM EDT Office Visit Urogynecology [facility] [address] [place] [address] René Bar MD [address] [place] [address] Nurse Kristine Gomes [facility] [address] [place] [address] 12/24/2023 2:45 PM EDT Imaging Radiology [facility] [address] [place] [address] 01/12/2024 10:00 AM EDT Office Visit Otolaryngology [facility] [address] [place] [address] Bruce Vásquez DO [address] [place] [address] Health Maintenance Due Date Last Done Comments DXA Scan 1956 Depression Monitoring 1968 Hepatitis C Screening 1974 DTaP,Tdap,and Td Vaccines (1 - Tdap) 10/13/1975 Cologuard 2001 Colonoscopy 2001 Sigmoidoscopy 2001 Zoster Vaccines (1 of 2) 2006 Colorectal Cancer Screening 06/26/2010 Fecal Occult Blood Test 06/26/2010 06/26/2009 Mammogram 09/28/2012 09/29/2011 Pneumococcal Vaccine: 65+ Years (3 of 3 - PPSV23 or PCV20) 2021 05/23/2015, 02/16/2014, 04/25/2008 GFR 03/05/2022 03/05/2021, 10/2019, 03/05/2020, Additional history exists COVID-19 Vaccine ( season) 2023 09/23/2022, 08/31/2022, 08/31/2022, Additional history exists *BASELINE EKG FOR HTN 07/25/2023 Influenza Vaccine (FLU shot) (#1) 2024 02/24/2019, 03/03/2017, 03/18/2016, Additional history exists Diabetes Screening 03/05/2024 03/05/2021, 1 , 03/05/2020, Additional history exists Lipid Panel 03/05/2026 03/05/2021 Albumin/Creatinine Ratio 11/18/2026 11/19/2023 GARDASIL-HPV IMMUNIZATION SERIES Aged Out No longer eligible based on patient's age to complete this topic Hepatitis B Aged Out No longer eligi ble based on patient's age to complete this topic MENINGOCOCCAL (MENACTRA/MENVEO) Aged Out No longer eligible based on patient's age to complete this topic documented as of this encounter Medical Devices Not on filedocumented as of this encounter Visit Diagnoses Diagnosis History of revision of total replacement of left knee joint- Primary Chronic pain of left knee Pain in joint, lower leg documented in this encounter Advance Directives * Full Code (Latest Code Status on File) Date Activated Date Inactivated Comments 03/04/2020 5:15 PM 03/06/2020 7:49 PM This order r eflects the patients wishes and were consensually agreed upon. (Per discussion at referring hospital) Question Answer Comments Discussion of Advance Directives occurred with: Patient Does the patient have a Living Will? No Does the patient have Health Care Power of Attor diallo? No Care Teams Pricing Coordinator Relationship Specialty Start Date End Date Sergio Peacock MD [address] [place] [id number] PCP - General Geriatric Medicine 07/29/19 documented as of this encounter
--- OUTSIDE RECORDS SUMMARY | 2023-12-13 11:49 | External Medical Summary | Summary of Care ---
Author Name Unknown Organization [facility] Address [address] [place] [address] Phone [phone] Care Team Providers Care Lead Developer Name Role Phone Sergio Peacock MD Primary Care Provider [phone] Encounter Details Date Type Department Care Team (Late st Contact Info) Description 12/08/2023 Population Health External Data Unspecified Department Allergies Active Allergy Reactions Criticality Noted Date [...] as of this encounter (statuses as of 12/08/2023) Medications Medication Sig Dispensed Refills Start Date [...] as of this encounter (statuses as of 12/08/2023) Active Problems Problem Noted Date Diagnosed Date Upper gastrointestinal bleed 03/04/2020 Chronic low back pain 03/04/2020 Migraine 03/04/2020 Essential hypertension 03/04/2020 Depression 03/04/2020 documented as of this encounter (statuses as of 12/08/2023) Social History Tobacco Use Types Packs/Day Years [...] shopping? (15 years old or older) No 03/04/20 20 Cognitive Status Response Date of Assessm ent Because of a physical, menta l, or emotional condition, do you have serious difficulty concentrating, remembering, or making decisions? (5 years old or older) No 03/04/2020 documented as of this encounter Plan of Treatment Upcoming Encounters Date Type Department Care Team (Late st Contact Info) Description 12/16/2023 2:15 PM EDT Office Visit Urogynecology [facility] [address] [place] [id number] René Bar MD [address] [place] [address] [employer] Kristine newell Ryan [address] [place] [address] 12/24/2023 2:45 PM EDT Imaging Radiology [facility] [facility] [place] [address] [place] [address] 01/12/2024 10:00 AM EDT Office Visit Otolaryngology [facility] [address] [place] [id number] Bruce Vásquez DO [address] [place] [id number] Health Maintenance Due Date Last Done Comments [...] 10/2019, 03/05/2020, Additional history exists COVID-19 Vaccine (2022- season) 2023 09/23/2022, 08/31/2022, 08/31/2022, Additional history exists *BASELINE EKG FOR HTN 07/25/2023 Influenza Vaccine (FLU shot) (#1) 2024 02/24/2019, 03/03/2017, 03/18/2016, Additional history exists Diabetes Screening 03/05/2024 03/05/2021, 1 , 03/05/2020, Additional history exists Lipid Panel 03/05/2026 03/05/2021 Albumin/Creatinine Ratio 11/18/2026 11/19/2023 HPV (Gardasil) Vaccine Aged Out No lo nger eligible based on patient's age to complete this topic Hepatitis B Vaccine Aged Out No longe r eligible based on patient's age to complete this topic MENINGOCOCCAL (MENACTRA/MENVEO) Aged Out No longer eligible based on patient's age to complete this topic documented as of this encounter Medical Devices Not on filedocumented as of this encounter Advance Directives * Full Code [...] Power of Attor diallo? No Care Teams Lead Developer Relationship Specialty Start Date End Date Sergio Peacock MD [address] [place] [id number] PCP - General Geriatric Medicine 07/29/19 documented as of this encounter
[2023-12-13] MEDS ORDERED: fentaNYL citrate PF 100 MCG/2 ML VIAL ONE (11:55)
--- NOTE | 2023-12-13 12:06 | Emergency Department Note ---
Impression & Plan Fall, Rhabdomyolysis, Back pain, Bilateral hip pain, Bilateral knee pain ED Provider Note NAME: IRVIN CERRATO AGE: 68 SEX: F : 1955 ARRIVES VIA: Ambulance INFORMANT: Patient ED PROVIDER(S): Candelario Rosales DO CHIEF COMPLAINT: fall HPI: Patient is a 68-year-old female with a past medical history of anxiety, anemia, adenoma who presents to the ER following a fall on Thursday which she does not remember. She remembers waking up on the ground in the bathroom. She has been on the floor since then. She had to drive herself to the kitchen to be able to get a hold of anybody. She admits to a mild headache. Bilateral hip and knee pain. She notes she is unable to walk. Denies any chest pain or belly pain. Has pain in the lower lumbar region. No dysuria, urgency or frequency. No fevers. No other exacerbating or remitting factors. ADDITIONAL HISTORY OBTAINED: Per HPI Chronic Medical/Social Conditions Affecting Care: Per HPI PAST MEDICAL HISTORY:See Below PAST SURGICAL HISTORY:See Below FAMILY HISTORY:See Below SOCIAL HISTORY:See Below HOME MEDICATIONS:See Below ALLERGIES:See Below VITALS:See Below PHYSICAL EXAMINATION: GENERAL: Sitting up in bed, alert, well appearing, well nourished, no distress, non-toxic HEAD: NC/AT EYE EXAM: normal conjunctiva. PERRL and EOM's grossly intact. OROPHARYNX: no exudate, no erythema, lips, buccal mucosa, and tongue normal and mucous membranes are moist NECK: supple, no nuchal rigidity, no adenopathy, non-tender LUNGS: Clear to auscultation. Normal chest wall mechanics HEART: no murmurs, S1 normal and S2 normal ABDOMEN: abdomen soft, non-tender, normo-active bowel sounds, no masses, no rebound or guarding. BACK: Back is symmetrical on inspection and there is no deformity, no midline tenderness, no CVA tenderness. SKIN: no rashes and no bruising UPPER EXTREMITIES: Bilateral hips are tender to palpation at the right lower extremity externally rotated. Tenderness over the left knee. No tenderness over the mid or distal tib-fib ankle or foot. DPs and PTs 2 out of 4 bilaterally. Significant pain around right hip and right knee. No tenderness throughout the mid femur mid or distal tib-fib ankle or foot on the right. LOWER EXTREMITIES: No pitting edema. NEURO EXAM: Normal sensorium, cranial nerves II-XII grossly intact, normal speech, no gross weakness of arms. MEDICAL DECISION MAKING: Patient is a 68-year-old female who presents ER for the above-stated complaint. IV was established blood work was obtained. Labs show no significant leukocytosis. Mild anemia 10.8. INR unremarkable. BMP with mild hypokalemia 3.1. LFTs and bilirubin were unremarkable. Troponin was negative. Lipase normal. X-rays as well as CT of the head and cervical spine were fairly unremarkable. She was given multiple doses of morphine. She is updated bedside. Admitted to the hospitalist Dr. Bill Sims for further evaluation and management treatment after my discussion with him. Consults/Care Managements Discussions: Per MDM Triage Nursing notes reviewed. Limited review of prior medical records performed Vital Signs: reviewed and remarkable for no significant abnormalities Differential diagnosis: Infection, dehydration, metabolic abnormality, hypo/hyperglycemia, electrolyte disturbance, anemia, hypoxia, cardiac sources, intracerebral event, toxicologic, neurologic, as well as other pathologies. ER treatment provided: See below Diagnostics interpreted by me include EKG and cardiac monitoring as listed below: -Cardiac Monitoring: An order was placed for continuous cardiac monitoring. The monitor shows a rate of 80 with sinus rhythm. -ECG: none -Laboratory studies:Interpreted by me as stated above in MDM and shown below. Imaging studies: Xrays: As interpreted by me: X-ray of the pelvis and hip show no acute fracture X-rays of bilateral knees showed no acute fracture X-rays of the lumbar spine show no acute fracture CTs show: CT head and cervical spine was negative Procedures:none Critical Care: None Past Med/Surg History Problem List (Updated 12/13/23 @ 17:14 by Candelario Rosales DO) Bilateral knee pain (Acute) Bilateral hip pain (Acute) Back pain (Acute) Rhabdomyolysis (Acute) Fall (Acute) Iron deficiency Acute alteration in mental status (Acute) Hypokalemia Painful total knee replacement Ulcer at site of surgical anastomosis following bypass of stomach Adenoma Red blood cell antibody positive, compatible PRBC difficult to obtain Vitamin D insufficiency H/O gastric bypass Anxiety Osteoarthritis Neuropathy Chronic pain Anemia (Acute) Medical History (Updated 12/13/23 @ 17:14 by Candelario Rosales DO) Acute hypoxemic respiratory failure Altered mental status Gastric ulcer Left wrist fracture Left wrist pain Gastritis Medical marijuana use has not used several years Diarrhea Encounter for pre-operative examination Melena Acute hypotension Acute GI bleeding Hx MRSA infection dx [facility] years ago, "it was in her blood" Irritable bowel syndrome with constipation Hepatitis C hx - treated History of anesthesia reaction hx of waking up during procedures Bulging discs Scoliosis Spinal stenosis Glaucoma Attention deficit disorder (ADD) Migraine Depression Hypertension hx GI bleed admitted to [facility] 06/2022; no current problems Surgical History History of partial hysterectomy History of bilateral breast reduction surgery History of bilateral tubal ligation Status post right foot surgery x7--hardware in place Status post left foot surgery x7-hardware in place History of open reduction and internal fixation (ORIF) procedure right ankle--hardware in place History of fusion of cervical spine C4-C5--normal ROM History of right shoulder replacement History of total right hip replacement History of total left knee replacement (TKR) x2 History of colonoscopy History of esophagogastroduodenoscopy (EGD) History of cholecystectomy History of appendectomy History of mandibular surgery 1978--wired shut History of tooth extraction History of wisdom tooth extraction History of eye surgery right---scar tissue from cataract sx History of bilateral cataract extraction History of cardiac cath 2005 @ [facility]---"fistula in heart between 2 valves"--no stents; no cardio, just PCP History of lung biopsy right side--benign Family History Mother Colorectal cancer Father Lung cancer Family history of esophageal cancer Brother Family history of esophageal cancer Grandfather (Maternal) Family history of esophageal cancer Other No family history of adverse response to anesthesia Social History Smoking Status: Never smoker Second Hand Exposure: No; Do You Dip or Chew Tobacco: No; Hx Alcohol Use: No Hx Substance Use: No Preferred Language: Jordanian Communication Ability: Effective Exotic Dancer Required: No Beliefs That Will Affect Care: None Current Living Situation: Alone Current Living Situation Comment: Lives with brother Feels Safe at Home: Yes Assistive Devices: Cane Allergies Allergies Allergy/AdvReac Type Severity Reaction Status Date / Time aripiprazole [From Abilify] Allergy Severe Tremors Unverified 12/13/23 15:38 bee venom protein (honey bee) Allergy Severe Anaphylaxis Verified 12/13/23 15:38 sulfamethoxazole Allergy Unknown at age 20, Verified 12/13/23 15:38 can not remember what happened trimethoprim Allergy Unknown at age 20, Verified 12/13/23 15:38 can not remember what happened lactose AdvReac Intermediate ice cream Verified 12/13/23 15:38 gives her diarrhea milk AdvReac Intermediate Diarrhea Verified 12/13/23 15:38 Home Meds Home Medications Medication Instructions Recorded Confirmed bupropion HCl 150 mg 24 hr tablet, 150 mg PO QAM 06/03/22 12/13/23 extended release (Wellbutrin XL) bupropion HCl 300 mg 24 hr tablet, 300 mg PO QAM 06/03/22 12/13/23 extended release (Wellbutrin XL) dextroamphetamine-amphetamine 30 30 mg PO BID 06/03/22 12/13/23 mg tablet gabapentin 600 mg tablet 1,800 mg PO BID 06/03/22 12/13/23 metoclopramide HCl 10 mg tablet 10 mg PO BID PRN Nausea 06/03/22 12/13/23 multivitamin (Multiple Vitamins 1 tab PO QAM 06/03/22 12/13/23 tablet) sumatriptan succinate 100 mg tablet 100 mg PO UD PRN Migraine Headache 06/03/22 12/13/23 vitamin B complex 1 tab PO QAM 06/03/22 12/13/23 aspirin 500 mg tablet,delayed 500 - 2,500 mg PO DAILY PRN Pain 09/24/23 12/13/23 release bismuth subsalicylate 262 mg 524 mg PO QID PRN .gi-upset 09/24/23 12/13/23 tablet (Pepto-Bismol) tafluprost (PF) 0.0015 % eye drops 2 drp OPB HS 09/24/23 12/13/23 in a dropperette timolol maleate 0.5 % eye drops 1 drp OPB QAM 09/24/23 12/13/23 epinephrine 0.3 mg/0.3 mL 0.3 mg IM DIRECTED PRN Allergic 11/29/23 12/13/23 injection, auto-injector (EpiPen) Reaction Previous Rx's Medication Instructions Recorded pantoprazole 40 mg tablet,delayed 40 mg PO BID 90 days #180 tabs 10/14/23 release sucralfate 100 mg/mL oral 10 ml PO QID #1,000 mL 10/15/23 suspension (Carafate) Results & Data (ED) Vital Signs Vital Signs - 24 hr 12/13/23 12:02 12/13/23 12:02 12/13/23 12:26 Temperature 36.6 C Temperature Source Oral Pulse Rate 92 H 95 H Pulse Rate [Apical] Pulse Rate from SpO2 Sensor Pulse Rhythm Regular Pulse Rhythm [Apical] Pulse Strength Normal Pulse Strength [Apical] Respiratory Rate 20 Respiratory Effort / Characteristics Non-Labored Respiratory Depth Normal Respiratory Pattern Regular Blood Pressure 148/73 H Blood Pressure [Left Arm] Blood Pressure Mean 98 Blood Pressure Mean [Left Arm] Pulse Oximetry 99 99 Oxygen Delivery Method Room Air Room Air Oxygen Flow Rate Sepsis Recent Fever Within 48 Hours No Sepsis New/Unexplained Change in Mental Status No Sepsis Action Taken by Nursing No Action Required 12/13/23 12:42 12/13/23 12:42 12/13/23 13:03 Temperature Temperature Source Pulse Rate 97 H Pulse Rate [Apical] 97 H Pulse Rate from SpO2 Sensor Pulse Rhythm Pulse Rhythm [Apical] Regular Pulse Strength Pulse Strength [Apical] Normal Respiratory Rate 20 22 Respiratory Effort / Characteristics Non-Labored Respiratory Depth Normal Respiratory Pattern Regular Blood Pressure 120/77 Blood Pressure [Left Arm] Blood Pressure Mean 91 Blood Pressure Mean [Left Arm] Pulse Oximetry 82 L 92 98 Oxygen Delivery Method Room Air Nasal Cannula Nasal Cannula Oxygen Flow Rate 3 3 Sepsis Recent Fever Within 48 Hours Sepsis New/Unexplained Change in Mental Status Sepsis Action Taken by Nursing 12/13/23 13:30 12/13/23 13:54 12/13/23 14:00 Temperature Temperature Source Pulse Rate 95 H 94 H Pulse Rate [Apical] Pulse Rate from SpO2 Sensor 96 H Pulse Rhythm Pulse Rhythm [Apical] Pulse Strength Pulse Strength [Apical] Respiratory Rate 17 25 H Respiratory Effort / Characteristics Respiratory Depth Respiratory Pattern Blood Pressure 102/74 143/84 H Blood Pressure [Left Arm] Blood Pressure Mean 83 99 Blood Pressure Mean [Left Arm] Pulse Oximetry 98 97 Oxygen Delivery Method Nasal Cannula Oxygen Flow Rate 3 Sepsis Recent Fever Within 48 Hours Sepsis New/Unexplained Change in Mental Status Sepsis Action Taken by Nursing 12/13/23 14:09 12/13/23 14:58 12/13/23 15:00 Temperature Temperature Source Pulse Rate 89 Pulse Rate [Apical] Pulse Rate from SpO2 Sensor 89 Pulse Rhythm Pulse Rhythm [Apical] Pulse Strength Pulse Strength [Apical] Respiratory Rate 14 Respiratory Effort / Characteristics Respiratory Depth Respiratory Pattern Blood Pressure 151/75 H 135/68 Blood Pressure [Left Arm] Blood Pressure Mean 94 84 Blood Pressure Mean [Left Arm] Pulse Oximetry 99 Oxygen Delivery Method Oxygen Flow Rate Sepsis Recent Fever Within 48 Hours Sepsis New/Unexplained Change in Mental Status Sepsis Action Taken by Nursing 12/13/23 15:00 12/13/23 15:09 12/13/23 15:30 Temperature Temperature Source Pulse Rate 86 93 H Pulse Rate [Apical] Pulse Rate from SpO2 Sensor 86 92 H Pulse Rhythm Pulse Rhythm [Apical] Pulse Strength Pulse Strength [Apical] Respiratory Rate 12 16 Respiratory Effort / Characteristics Respiratory Depth Respiratory Pattern Blood Pressure 135/68 Blood Pressure [Left Arm] Blood Pressure Mean 84 Blood Pressure Mean [Left Arm] Pulse Oximetry 99 98 Oxygen Delivery Method Oxygen Flow Rate Sepsis Recent Fever Within 48 Hours Sepsis New/Unexplained Change in Mental Status Sepsis Action Taken by Nursing 12/13/23 15:30 12/13/23 16:00 12/13/23 16:00 Temperature Temperature Source Pulse Rate Pulse Rate [Apical] Pulse Rate from SpO2 Sensor Pulse Rhythm Pulse Rhythm [Apical] Pulse Strength Pulse Strength [Apical] Respiratory Rate Respiratory Effort / Characteristics Respiratory Depth Respiratory Pattern Blood Pressure 124/92 138/76 138/76 Blood Pressure [Left Arm] Blood Pressure Mean 103 92 92 Blood Pressure Mean [Left Arm] Pulse Oximetry Oxygen Delivery Method Oxygen Flow Rate Sepsis Recent Fever Within 48 Hours Sepsis New/Unexplained Change in Mental Status Sepsis Action Taken by Nursing 12/13/23 16:00 12/13/23 16:00 12/13/23 16:07 Temperature 36.7 C Temperature Source Oral Pulse Rate 93 H Pulse Rate [Apical] 85 Pulse Rate from SpO2 Sensor 94 H Pulse Rhythm Pulse Rhythm [Apical] Pulse Strength Pulse Strength [Apical] Respiratory Rate 23 18 Respiratory Effort / Characteristics Respiratory Depth Respiratory Pattern Blood Pressure 138/76 Blood Pressure [Left Arm] 138/76 Blood Pressure Mean 92 Blood Pressure Mean [Left Arm] 96 Pulse Oximetry 98 98 Oxygen Delivery Method Nasal Cannula Oxygen Flow Rate 2 Sepsis Recent Fever Within 48 Hours Sepsis New/Unexplained Change in Mental Status Sepsis Action Taken by Nursing 12/13/23 16:27 12/13/23 16:30 12/13/23 16:30 Temperature Temperature Source Pulse Rate 87 Pulse Rate [Apical] Pulse Rate from SpO2 Sensor 84 Pulse Rhythm Pulse Rhythm [Apical] Pulse Strength Pulse Strength [Apical] Respiratory Rate 17 Respiratory Effort / Characteristics Respiratory Depth Respiratory Pattern Blood Pressure 131/86 131/86 Blood Pressure [Left Arm] Blood Pressure Mean 92 92 Blood Pressure Mean [Left Arm] Pulse Oximetry 97 Oxygen Delivery Method Oxygen Flow Rate Sepsis Recent Fever Within 48 Hours Sepsis New/Unexplained Change in Mental Status Sepsis Action Taken by Nursing 12/13/23 16:35 12/13/23 16:45 12/13/23 17:00 Temperature Temperature Source Pulse Rate 78 84 Pulse Rate [Apical] Pulse Rate from SpO2 Sensor 85 Pulse Rhythm Pulse Rhythm [Apical] Pulse Strength Pulse Strength [Apical] Respiratory Rate 17 Respiratory Effort / Characteristics Respiratory Depth Respiratory Pattern Blood Pressure 135/74 Blood Pressure [Left Arm] Blood Pressure Mean 91 Blood Pressure Mean [Left Arm] Pulse Oximetry 98 Oxygen Delivery Method Oxygen Flow Rate Sepsis Recent Fever Within 48 Hours Sepsis New/Unexplained Change in Mental Status Sepsis Action Taken by Nursing 12/13/23 17:03 Temperature Temperature Source Pulse Rate 87 Pulse Rate [Apical] Pulse Rate from SpO2 Sensor 87 Pulse Rhythm Pulse Rhythm [Apical] Pulse Strength Pulse Strength [Apical] Respiratory Rate 18 Respiratory Effort / Characteristics Respiratory Depth Respiratory Pattern Blood Pressure Blood Pressure [Left Arm] Blood Pressure Mean Blood Pressure Mean [Left Arm] Pulse Oximetry 98 Oxygen Delivery Method Oxygen Flow Rate Sepsis Recent Fever Within 48 Hours Sepsis New/Unexplained Change in Mental Status Sepsis Action Taken by Nursing Laboratory Data 12/13/23 12:11 12/13/23 12:11 Lab Results 12/13/23 12/13/23 12/13/23 Range/Units 12:11 12:16 12:35 WBC 8.39 (4.8-10.8) K/ul RBC 4.01 L (4.20-5.40) M/uL Hgb 10.8 L (12.0-16.0) g/dl POC Hgb 11.6 L (12.0-16.0) g/dl Hct 34.0 L (37.0-47.0) % POC Hct 34 L (37-47) % MCV 84.8 (80.0-100.0) fL MCH 26.9 (25.0-34.0) pg MCHC 31.8 L (32.0-36.0) g/dL RDW Std Deviation 50.4 H (36.4-46.3) fL RDW Coeff of Faizan 16.1 H (11.5-14.5) % Plt Count 317 (130-400) K/uL MPV 9.1 L (9.4-12.4) fL Immature Gran % (Auto) 0.2 % Neut % (Auto) 79.8 % Lymph % (Auto) 12.6 % Sampson % (Auto) 7.0 % Eos % (Auto) 0.0 % Baso % (Auto) 0.4 % Neut # (Auto) 6.69 H (1.40-6.50) K/uL Lymph # (Auto) 1.06 L (1.20-3.40) K/uL Sampson # (Auto) 0.59 (0.11-0.59) K/uL Eos # (Auto) 0.00 (0.00-0.50) K/uL Baso # (Auto) 0.03 (0.00-0.20) K/uL Immature Gran # (Auto) 0.02 (0.01-0.20) K/uL PT 11.9 (9.0-12.0) Seconds INR 1.1 (0.9-1.1) POC Sodium 140 (135-144) mmol/L Sodium 141 (136-145) mmol/L POC Potassium 3.0 L (3.3-5.0) mmol/L Potassium 3.1 L (3.5-5.1) mmol/L POC Chloride 103 (101-112) mmol/L Chloride 104 (98-107) mmol/L Carbon Dioxide 26 (21-32) mmol/L POC Total CO2 23 L (24-31) mmol/L Anion Gap 11 (3-11) POC Anion Gap 18.0 (16-25) mmol/L POC BUN 16 (7-18) mg/dl BUN 19 (6-23) mg/dl Creatinine 0.46 L (0.6-1.2) mg/dl POC Creatinine 0.4 L (0.6-1.3) mg/dl Est Cr Clr Drug Dosing 130.4 ml/min Est GFR ( Amer) 119.3 ml/min Est GFR (Non-Af Amer) 102.9 ml/min BUN/Creatinine Ratio 41.3 H (10-20) Glucose 126 H (70-99(Fasting)) mg/dl POC Glucose (other) 128 H (70-99) mg/dl Lactate 1.0 (0.4-2.0) mmol/L Calcium 8.5 L (8.6-10.3) mg/dl POC Ioniz Calcium Kelsey 1.12 (1.12-1.32) mmol/l Total Bilirubin 1.3 H (0.2-1.0) mg/dl AST 94 H (13-39) U/L ALT 43 (7-52) U/L Alkaline Phosphatase 57 (34-104) U/L Total Creatine Kinase 3164 H (26-192) U/L Troponin I High Sens 11.4 (0-14) pg/ml Total Protein 6.7 (6.0-8.3) gm/dl Albumin 3.6 (3.4-5.0) gm/dl Globulin 3.1 (2.5-4.0) gm/dl Albumin/Globulin Ratio 1.2 (0.9-2) Lipase 9 L (11-82) U/L Administered Medications Morphine Sulfate (Morphine Sulfate 2 Mg/Ml Carp) 2 mg IV Q1H PRN PRN Reason: Moderate Pain (Rating 3,4,5,6) Stop: 12/27/23 11:58 Last Admin: 12/13/23 14:13 Dose: 2 mg Documented By: BROOKE Morphine Sulfate (Morphine Sulfate 4 Mg/Ml 1 Ml Carp\\Vial) 4 mg IV Q1H PRN PRN Reason: Severe Pain (Rating 7,8,9,10) Stop: 12/27/23 11:58 Last Admin: 12/13/23 15:29 Dose: 4 mg Documented By: Admin: 12/13/23 13:17 Dose: 4 mg Documented By: Admin: 12/13/23 12:24 Dose: 4 mg Documented By: OAC Discontinued Medications Acetaminophen (Acetaminophen 500 Mg Tab) 1,000 mg PO NOW STA Stop: 12/13/23 16:08 Last Admin: 12/13/23 16:18 Dose: 1,000 mg Documented By: WHIT Parenteral Electrolytes (Plasma-Lyte A Ph 7.4) 2,000 mls @ 999 mls/hr IV .Q2H1M ONE Stop: 12/13/23 13:58 Last Infusion: 12/13/23 14:24 Dose: Infused Documented By: Admin: 12/13/23 12:22 Dose: 999 mls/hr Documented By: BROOKE Morphine Sulfate (Morphine Sulfate 2 Mg/Ml Carp) 2 mg IV NOW STA Stop: 12/13/23 14:37 Last Admin: 12/13/23 14:31 Dose: 2 mg Documented By: BROOKE Imaging Data Radiologist's Impression: Hip/Pelvis X-Ray 12/13/23 11:59 XR hip NIDAI 2v w pelvis CLINICAL HISTORY: fall b/l hip pain COMPARISON STUDY: None. FINDINGS: No acute fracture or dislocation within the pelvis or hips. There is a right total hip arthroplasty. The hardware appears intact. Moderate degenerative changes within the left hip. The sacrum is intact. IMPRESSION: No acute fracture or dislocation within the pelvis or hips. ACT 112: Negative or not required by law. Electronically signed by: Darci Weathers M.D. 12/13/2023 3:08 PM Knee X-Ray 12/13/23 11:59 XR knee RT 1 or 2V routine, XR knee LT 1 or 2V routine CLINICAL HISTORY: b/l knee pain. Fall. COMPARISON STUDY: Left knee radiograph 06/09/2023. FINDINGS: No acute fracture or dislocation within the right or left knee. There is mild tricompartmental osteoarthritis within the right knee. No right knee effusion. Soft tissues are unremarkable. There is a left total knee arthroplasty. The hardware appears intact. A moderate left knee effusion persists. IMPRESSION: 1. No acute fracture or dislocation within the right or left knee. 2. Moderate left knee effusion, unchanged. 3. Left total knee arthroplasty again noted. ACT 112: Negative or not required by law. Electronically signed by: Darci Weathers M.D. 12/13/2023 3:13 PM Knee X-Ray 12/13/23 11:59 XR knee RT 1 or 2V routine, XR knee LT 1 or 2V routine CLINICAL HISTORY: b/l knee pain. Fall. COMPARISON STUDY: Left knee radiograph 06/09/2023. FINDINGS: No acute fracture or dislocation within the right or left knee. There is mild tricompartmental osteoarthritis within the right knee. No right knee effusion. Soft tissues are unremarkable. There is a left total knee arthroplasty. The hardware appears intact. A moderate left knee effusion persists. IMPRESSION: 1. No acute fracture or dislocation within the right or left knee. 2. Moderate left knee effusion, unchanged. 3. Left total knee arthroplasty again noted. ACT 112: Negative or not required by law. Electronically signed by: Darci Weathers M.D. 12/13/2023 3:13 PM Lumbar Spine X-Ray 12/13/23 11:59 XR lumbar spine 2-3V CLINICAL HISTORY: fall. Back pain. COMPARISON STUDY: None. FINDINGS: Moderate levoscoliosis of the lumbar spine. No acute fracture or subluxation. The L1-L2 vertebral bodies are fused. Moderate degenerative disease and facet osteoarthritis throughout the remaining lumbar spine. The visualized sacrum is intact. IMPRESSION: No acute fracture or subluxation within the lumbar spine. ACT 112: Negative or not required by law. Electronically signed by: Darci Weathers M.D. 12/13/2023 3:[address] 12/13/23 12:[address] DOSE: 1263.39 mGy.cm HISTORY: fall TECHNIQUE: Multiaxial CT images of the cervical spine were performed and reformatted in the sagittal and coronal plane without the use of contrast. A dose lowering technique was utilized adhering to the principles of ALARA. COMPARISON: None. FINDINGS: No fractures. No subluxation. Prevertebral soft tissues and the C1-C2 interval are intact. No pneumothorax. The C3-C4 facets are fused. There is anterior cervical discectomy and fusion from C4 through C7. IMPRESSION: No fractures within the cervical spine. ACT 112: Negative or not required by law. Electronically signed by: Darci Weathers M.D. 12/13/2023 1:15 PM Chest X-Ray 12/13/23 12:01 XR chest 1V portable HISTORY: fall COMPARISON: Chest 11/29/2023. FINDINGS: No pneumothorax. No pleural effusions. The lungs are clear. The cardiac silhouette is top normal in size. Cervical spinal fusion hardware is again noted. There is a right shoulder prosthesis. No acute fractures. Suture material again noted within the right midlung zone. IMPRESSION: No significant change compared to the prior study. No acute process. ACT 112: Negative or not required by law. Electronically signed by: Darci Weathers M.D. 12/13/2023 3:[address] 12/13/23 12:[address] DOSE: HISTORY: fall TECHNIQUE: Multiaxial CT images of the head were performed without the use of intravenous contrast. Automated exposure control was utilized for this study. A dose lowering technique was utilized adhering to the principles of ALARA. Comparison: Head CT 11/29/2023. Findings: Mild motion artifact. The paranasal sinuses and mastoid air cells are clear. The calvarium and skull base are intact. The ventricles and sulci are within normal limits. There is no mass, hematoma, midline shift, or acute infarct. Impression: No acute intracranial abnormality. ACT 112: Negative or not required by law. Electronically signed by: Dacri Weathers M.D. 12/13/2023 1:11 PM Discharge Plan Visit Data Chief Complaint: Fall Stated Complaint: FALL,CONFUSION, HIP PAIN, ED Provider: Candelario Rosales Discharge Problem: Fall, Rhabdomyolysis, Back pain, Bilateral hip pain, Bilateral knee pain Forms Stand Alone Forms: [facility] Prescriptions Prescriptions: No Action pantoprazole 40 mg tablet,delayed release (DR/EC) 40 mg PO BID 90 Days Qty: 180 1RF sucralfate [Carafate] 100 mg/mL suspension 10 ml PO QID Qty: 1000 2RF Rx Instructions: LAST FILLED 10/16/23 FOR 25 DAYS. swish in mouth and swallow; use after food/drink bupropion HCl [Wellbutrin XL] 300 mg Tablet Extended Release 24 Hr 300 mg PO QAM Rx Instructions: TAKE WITH 150 MG ER = 450MG EVERY MORNING bupropion HCl [Wellbutrin XL] 150 mg Tablet Extended Release 24 Hr 150 mg PO QAM Rx Instructions: TAKE WITH 300MG XL =450MG XL EVERY MORNING sumatriptan succinate 100 mg tablet 100 mg PO UD MDD 2TABS PRN (Reason: Migraine Headache) Rx Instructions: ONE TABLET, NEEDED FOR MIGRAINE, MAY REPEAT IN TWO HOURS. MAX DAILY = 2 TABS gabapentin 600 mg tablet 1,800 mg PO BID dextroamphetamine-amphetamine 30 mg tablet 30 mg PO BID Rx Instructions: LAST FILLED 09/25/23 FOR 60 TABS/30 DAYS. metoclopramide HCl 10 mg tablet 10 mg PO BID PRN (Reason: Nausea) vitamin B complex Tablet 1 tab PO QAM multivitamin [Multiple Vitamins] Tablet 1 tab PO QAM epinephrine [EpiPen] 0.3 mg/0.3 mL Auto-Injector 0.3 mg IM DIRECTED PRN (Reason: Allergic Reaction) aspirin 500 mg Tablet,Delayed Release (Dr/Ec) 500 - 2,500 mg PO DAILY PRN (Reason: Pain) Pepto-Bismol 262 mg Tablet 524 mg PO QID PRN (Reason: .gi-upset) timolol maleate 0.5 % drops 1 drp OPB QAM tafluprost (PF) 0.0015 % dropperette 2 drp OPB HS Referrals Referrals: Sergio Peacock MD [Primary Care Provider] - Discharge Problem: Fall Qualifiers: Encounter type: initial encounter Qualified Code(s): W19.XXXA - Unspecified fall, initial encounter Rhabdomyolysis Qualifiers: Rhabdomyolysis type: non-traumatic Qualified Code(s): M62.82 - Rhabdomyolysis Back pain Qualifiers: Back pain location: low back pain Chronicity: acute Back pain laterality: u nspecified Sciatica presence: unspecified whether sciatica present Qualified Code(s): M54.50 - Low back pain, unspecified Bilateral knee pain Qualifiers: Chronicity: acute Qualified Code(s): M25.561 - Pain in right knee; M25.562 - Pain in left knee
[2023-12-13] MEDS: PLASMA-LYTE A 2,000 ML IV ONE (12:22)
[2023-12-13] MEDS: MoRPHine SULFATE 4 MG/ML 1 ML CARP\\VIAL IV PRN ×2 (12:24→23:13)
[2023-12-13 12:29] LABS: iSTAT Creatinine 0.4 mg/dl (0.6-1.3); iSTAT Hemoglobin 11.6 g/dl (12.0-16.0); iSTAT Ionized Calcium 1.12 mmol/l (1.12-1.32)
[2023-12-13 12:31] LABS: Basophils # (auto) 0.03 K/uL (0.00-0.20); Basophils % (auto) 0.4 %; Hemoglobin 10.8 g/dl (12.0-16.0); Immature Granulocytes # (auto) 0.02 K/uL (0.01-0.20); Immature Granulocytes % (auto) 0.2 %; Lymphocytes # (auto) 1.06 K/uL (1.20-3.40); Lymphocytes % (auto) 12.6 %; Mean Corpuscular Hemoglobin 26.9 pg (25.0-34.0); Mean Corpuscular Hgb Conc 31.8 g/dL (32.0-36.0); Mean Corpuscular Volume 84.8 fL (80.0-100.0); Mean Platelet Volume 9.1 fL (9.4-12.4); Monocytes # (auto) 0.59 K/uL (0.11-0.59); Neutrophils # (auto) 6.69 K/uL (1.40-6.50); Neutrophils % (auto) 79.8 %; Platelet Count 317 K/uL (130-400); RDW Coefficient of Variation 16.1 % (11.5-14.5); RDW Standard Deviation 50.4 fL (36.4-46.3); Red Blood Count 4.01 M/uL (4.20-5.40); White Blood Count 8.39 K/ul (4.8-10.8)
[2023-12-13 12:47] LABS: BUN Creatinine Ratio 41.3 (10-20); Calcium 8.5 mg/dl (8.6-10.3); Creatinine Clr Calc Pharmacy 130.4 ml/min; Est GFR (African American) 119.3 ml/min; Est GFR (Non-African American) 102.9 ml/min; Potassium 3.1 mmol/L (3.5-5.1)
[2023-12-13 12:53] LABS: Troponin I High Sensitivity 11.4 pg/ml (0-14)
[2023-12-13 12:54] LABS: Albumin Globulin Ratio 1.2 (0.9-2); Albumin Level 3.6 gm/dl (3.4-5.0); Bilirubin,Total 1.3 mg/dl (0.2-1.0); Globulin 3.1 gm/dl (2.5-4.0); Total Protein 6.7 gm/dl (6.0-8.3)
[2023-12-13 13:01] LABS: INR 1.1 (0.9-1.1); Prothrombin Time 11.9 Seconds (9.0-12.0)
--- NOTE | 2023-12-13 13:13 | CT Scan Report ---
HEAD CT NONCONTRAST CT DOSE: HISTORY: fall TECHNIQUE: Multiaxial CT images of the head were performed without the use of intravenous contrast. A utomated exposure control was utilized for this study. A dose lowering technique was utilized adheri ng to the principles of ALARA. Comparison: Head CT 11/29/2023. Findings: Mild motion artifact. The paranasal sinuses and mastoid air cells are clear. The calvarium and skull base are intact. The ventricles and sulci are within normal limits. There is no mass, hemat jossie, midline shift, or acute infarct. Impression: No acute intracranial abnormality. ACT 112: Negative or not required by law. Electronically signed by: Darci Weathers M.D. 12/13/2023 1:11 PM
--- NOTE | 2023-12-13 13:17 | CT Scan Report ---
CERVICAL SPINE CT CT DOSE: 1263.39 mGy.cm HISTORY: fall TECHNIQUE: Multiaxial CT images of the cervical spine were performed and reformatted in the sagittal and coronal plane without the use of contrast. A dose lowering technique was utilized adhering to th e principles of ALARA. COMPARISON: None. FINDINGS: No fractures. No subluxation. Prevertebral soft tissues and the C1-C2 interval are intact. No pneumothorax. The C3-C4 facets are fused. There is anterior cervical discectomy and fusion from C4 through C7. IMPRESSION: No fractures within the cervical spine. ACT 112: Negative or not required by law. Electronically signed by: Darci Weathers M.D. 12/13/2023 1:15 PM
[2023-12-13] MEDS: MoRPHine SULFATE 2 MG/ML CARP IV PRN (14:13)
[2023-12-13] MEDS: MoRPHine SULFATE 2 MG/ML CARP IV STA (14:31)
--- NOTE | 2023-12-13 15:08 | XRay Report ---
XR lumbar spine 2-3V CLINICAL HISTORY: fall. Back pain. COMPARISON STUDY: None. FINDINGS: Moderate levoscoliosis of the lumbar spine. No acute fracture or subluxation. The L1-L2 kelle tebral bodies are fused. Moderate degenerative disease and facet osteoarthritis throughout the remain ing lumbar spine. The visualized sacrum is intact. IMPRESSION: No acute fracture or subluxation within the lumbar spine. ACT 112: Negative or not required by law. Electronically signed by: Darci Weathers M.D. 12/13/2023 3:07 PM
--- NOTE | 2023-12-13 15:09 | XRay Report ---
XR hip NIDIA 2v w pelvis CLINICAL HISTORY: fall b/l hip pain COMPARISON STUDY: None. FINDINGS: No acute fracture or dislocation within the pelvis or hips. There is a right total hip arth roplasty. The hardware appears intact. Moderate degenerative changes within the left hip. The sacrum is intact. IMPRESSION: No acute fracture or dislocation within the pelvis or hips. ACT 112: Negative or not required by law. Electronically signed by: Darci Weathers M.D. 12/13/2023 3:08 PM
--- NOTE | 2023-12-13 15:12 | XRay Report ---
XR chest 1V portable HISTORY: fall COMPARISON: Chest 11/29/2023. FINDINGS: No pneumothorax. No pleural effusions. The lungs are clear. The cardiac silhouette is top n ormal in size. Cervical spinal fusion hardware is again noted. There is a right shoulder prosthesis. No acute fractures. Suture material again noted within the right midlung zone. IMPRESSION: No significant change compared to the prior study. No acute process. ACT 112: Negative or not required by law. Electronically signed by: Darci Weathers M.D. 12/13/2023 3:10 PM
--- NOTE | 2023-12-13 15:16 | XRay Report ---
XR knee RT 1 or 2V routine, XR knee LT 1 or 2V routine CLINICAL HISTORY: b/l knee pain. Fall. COMPARISON STUDY: Left knee radiograph 06/09/2023. FINDINGS: No acute fracture or dislocation within the right or left knee. There is mild tricompartmen floyd osteoarthritis within the right knee. No right knee effusion. Soft tissues are unremarkable. Ther e is a left total knee arthroplasty. The hardware appears intact. A moderate left knee effusion persi sts. IMPRESSION: 1. No acute fracture or dislocation within the right or left knee. 2. Moderate left knee effusion, unchanged. 3. Left total knee arthroplasty again noted. ACT 112: Negative or not required by law. Electronically signed by: Darci Weathers M.D. 12/13/2023 3:13 PM
--- NOTE | 2023-12-13 15:55 | History & Physical Report ---
Date of Service December 13, 2023 Assessment & Plan (1) Fall: Plan: Unknown history surrounding fall. Monitor on telemetry for arrhythmia Appears just tired rather than encephalopathic - will reduce gabapentin and hold ER opiates PT/OT assessments (2) Rhabdomyolysis: Plan: IV fluids Repeat CK/Mg with AM labs (3) Hypoxia: Plan: Hypoxic last admission in admission without etiology but with altered mental status and on room air on discharge, possibly some obesity hypoventilation/AAYUSH in setting of lethargy Aim O2 sats > 90% (4) Generalized pain: Plan: Acetaminophen regularly Hold NSAIDs due to history of GI bleed Chronic opiate use with morphine ER but given current lethargic state would avoid extended release and use oxycodone 1st line, morphine 2nd line for breakthrough pain Suspect generalized pain from being off her usual opiates and on the floor since Thursday (5) Anemia: Plan: At baseline, monitor Plan VTE Prophylaxis - Lovenox 40mg SQ daily Diet - lactose intolerant Disposition - observation to med/tele Admission and Anticipated Discharge Date Admission Date: December 13, 2023 History of Present Illness Chief Complaint: Fall, generalized weakness and pain Primary Care Provider: Sergio Peacock MD Keri Mcgraw is a 68 year old female who presents from home after falling in the bathroom 2 days previously. She cannot remember any events surrounding the fall. Unknown if she lost consciousness. She couldn't walk but eventually crawled to the living room to call for help. She reports pain currently everywhere despite Fentanyl given on route and morphine given in the ER. Severity 10/10 currently. No fever, chills, headache, respiratory, gastrointestinal or urinary symptoms. She reports not taking any of her usual medications since Thursday. She was recently discharged 13 days ago with a diagnosis of altered mental status with unclear etiology - ?polypharmacy vs. mild dehydration. Allergies Allergy/AdvReac Type Severity Reaction Status Date / Time aripiprazole [From Abilify] Allergy Severe Tremors Unverified 12/13/23 15:38 bee venom protein (honey bee) Allergy Severe Anaphylaxis Verified 12/13/23 15:38 sulfamethoxazole Allergy Unknown at age 20, Verified 12/13/23 15:38 can not remember what happened trimethoprim Allergy Unknown at age 20, Verified 12/13/23 15:38 can not remember what happened lactose AdvReac Intermediate ice cream Verified 12/13/23 15:38 gives her diarrhea milk AdvReac Intermediate Diarrhea Verified 12/13/23 15:38 Home Medications Medication Instructions Recorded Confirmed Type bupropion HCl 150 mg 24 hr tablet, 150 mg PO QAM 06/03/22 12/13/23 History extended release (Wellbutrin XL) bupropion HCl 300 mg 24 hr tablet, 300 mg PO QAM 06/03/22 12/13/23 History extended release (Wellbutrin XL) dextroamphetamine-amphetamine 30 30 mg PO BID 06/03/22 12/13/23 History mg tablet gabapentin 600 mg tablet 1,800 mg PO BID 06/03/22 12/13/23 History metoclopramide HCl 10 mg tablet 10 mg PO BID PRN Nausea 06/03/22 12/13/23 History multivitamin (Multiple Vitamins 1 tab PO QAM 06/03/22 12/13/23 History tablet) sumatriptan succinate 100 mg tablet 100 mg PO UD PRN Migraine Headache 06/03/22 12/13/23 History vitamin B complex 1 tab PO QAM 06/03/22 12/13/23 History aspirin 500 mg tablet,delayed 500 - 2,500 mg PO DAILY PRN Pain 09/24/23 12/13/23 History release bismuth subsalicylate 262 mg 524 mg PO QID PRN .gi-upset 09/24/23 12/13/23 History tablet (Pepto-Bismol) tafluprost (PF) 0.0015 % eye drops 2 drp OPB HS 09/24/23 12/13/23 History in a dropperette timolol maleate 0.5 % eye drops 1 drp OPB QAM 09/24/23 12/13/23 History pantoprazole 40 mg tablet,delayed 40 mg PO BID 90 days #180 tabs 10/14/23 0 12/13/23 Rx release sucralfate 100 mg/mL oral 10 ml PO QID #1,000 mL 10/15/23 12/13/23 Rx suspension (Carafate) epinephrine 0.3 mg/0.3 mL 0.3 mg IM DIRECTED PRN Allergic 11/29/23 12/13/23 History injection, auto-injector (EpiPen) Reaction Past Med/Surg History Problem List (Updated 12/14/23 @ 06:47 by Bill Sims MD) Acute encephalopathy Hypoxia Generalized pain Bilateral knee pain (Acute) Bilateral hip pain (Acute) Back pain (Acute) Rhabdomyolysis (Acute) Fall (Acute) Iron deficiency Acute alteration in mental status (Acute) Hypokalemia Painful total knee replacement Ulcer at site of surgical anastomosis following bypass of stomach Adenoma Red blood cell antibody positive, compatible PRBC difficult to obtain Vitamin D insufficiency Anxiety Osteoarthritis Neuropathy Chronic pain Anemia (Acute) Medical History (Updated 12/14/23 @ 06:47 by Bill Sims MD) Acute hypoxemic respiratory failure Altered mental status Gastric ulcer Left wrist fracture Left wrist pain Gastritis Medical marijuana use has not used several years Diarrhea Encounter for pre-operative examination Melena Acute hypotension Acute GI bleeding Hx MRSA infection dx [facility] years ago, "it was in her blood" Irritable bowel syndrome with constipation Hepatitis C hx - treated History of anesthesia reaction hx of waking up during procedures Bulging discs Scoliosis Spinal stenosis Glaucoma Attention deficit disorder (ADD) Migraine Depression Hypertension hx GI bleed admitted to [facility] 06/2022; no current problems Surgical History (Updated 12/13/23 @ 21:59 by Bill Sims MD) H/O gastric bypass History of partial hysterectomy History of bilateral breast reduction surgery History of bilateral tubal ligation Status post right foot surgery x7--hardware in place Status post left foot surgery x7-hardware in place History of open reduction and internal fixation (ORIF) procedure right ankle--hardware in place History of fusion of cervical spine C4-C5--normal ROM History of right shoulder replacement History of total right hip replacement History of total left knee replacement (TKR) x2 History of colonoscopy History of esophagogastroduodenoscopy (EGD) History of cholecystectomy History of appendectomy History of mandibular surgery 1978--wired shut History of tooth extraction History of wisdom tooth extraction History of eye surgery right---scar tissue from cataract sx History of bilateral cataract extraction History of cardiac cath 2005 @ [facility]---"fistula in heart between 2 valves"--no stents; no cardio, just PCP History of lung biopsy right side--benign Family History Mother Colorectal cancer Father Lung cancer Family history of esophageal cancer Brother Family history of esophageal cancer Grandfather (Maternal) Family history of esophageal cancer Other No family history of adverse response to anesthesia Social History Smoking Status: Never smoker Second Hand Exposure: No; Do You Dip or Chew Tobacco: No; Tobacco Cessation Education Requested by Patient: No Hx Alcohol Use: No Hx Substance Use: No Preferred Language: Luxembourgish Communication Ability: Effective Help Desk Technician Required: No Beliefs That Will Affect Care: None Current Living Situation: Alone Current Living Situation Comment: Lives with brother Other Information That Helps Us Care for You: No Feels Safe at Home: Yes Safety Concerns: Feels Safe At This Time Assistive Devices: Cane Review of Systems Review of Systems: All systems reviewed & are unremarkable except as noted in HPI & below Physical Exam Constitutional: well developed; + not well nourished and no acute distress Eyes: PERRL, conjunctivae normal, anicteric sclerae ENMT: Mouth: + dry oral mucous membranes Respiratory: normal respiratory effort, lungs clear to auscultation Cardiovascular: RRR, no murmur, no edema Gastrointestinal (Abdomen): normal bowel sounds, soft, nontender, no hepatosplenomegaly Musculoskeletal: no cyanosis or clubbing, extremities motor strength 5/5 Skin: no rashes, warm and dry Neurologic: moves all extremities and awake; no focal motor deficits and not confused Psychiatric: Orientation: alert, oriented to person, oriented to place and oriented to time (year only) Genitourinary: + CVA tenderness (bilateral) Results & Data Results & Data Vital Signs (Past 12 Hours) Vital Signs Temp Pulse Pulse Resp BP Pulse Ox O2 Del Method 12/13/23 13:30 95 H 17 102/74 98 Nasal Cannula 12/13/23 13:03 97 H 22 120/77 98 Nasal Cannula 12/13/23 12:42 97 H 20 92 Nasal Cannula 12/13/23 12:42 82 L Room Air 12/13/23 12:26 95 H 12/13/23 12:02 99 Room Air 12/13/23 12:02 36.6 C 92 H 20 148/73 H 99 Room Air O2 Flow Rate 12/13/23 13:30 3 12/13/23 13:03 3 12/13/23 12:42 3 12/13/23 12:42 12/13/23 12:26 12/13/23 12:02 12/13/23 12:02 Laboratory Results Abnormal lab results 12/13/23 12/13/23 Range/Units 12:11 12:16 RBC 4.01 L (4.20-5.40) M/uL Hgb 10.8 L (12.0-16.0) g/dl POC Hgb 11.6 L (12.0-16.0) g/dl Hct 34.0 L (37.0-47.0) % POC Hct 34 L (37-47) % MCHC 31.8 L (32.0-36.0) g/dL RDW Std Deviation 50.4 H (36.4-46.3) fL RDW Coeff of Faizan 16.1 H (11.5-14.5) % MPV 9.1 L (9.4-12.4) fL Neut # (Auto) 6.69 H (1.40-6.50) K/uL Lymph # (Auto) 1.06 L (1.20-3.40) K/uL POC Potassium 3.0 L (3.3-5.0) mmol/L Potassium 3.1 L (3.5-5.1) mmol/L POC Total CO2 23 L (24-31) mmol/L Creatinine 0.46 L (0.6-1.2) mg/dl POC Creatinine 0.4 L (0.6-1.3) mg/dl BUN/Creatinine Ratio 41.3 H (10-20) Glucose 126 H (70-99(Fasting)) mg/dl POC Glucose (other) 128 H (70-99) mg/dl Calcium 8.5 L (8.6-10.3) mg/dl Total Bilirubin 1.3 H (0.2-1.0) mg/dl AST 94 H (13-39) U/L Total Creatine Kinase 3164 H (26-192) U/L Lipase 9 L (11-82) U/L Diagnostic Findings HEAD CT NONCONTRAST CT DOSE: HISTORY: fall TECHNIQUE: Multiaxial CT images of the head were performed without the use of intravenous contrast. Automated exposure control was utilized for this study. A dose lowering technique was utilized adhering to the principles of ALARA. Comparison: Head CT 11/29/2023. Findings: Mild motion artifact. The paranasal sinuses and mastoid air cells are clear. The calvarium and skull base are intact. The ventricles and sulci are within normal limits. There is no mass, hematoma, midline shift, or acute infarct. Impression: No acute intracranial abnormality. CERVICAL SPINE CT CT DOSE: 1263.39 mGy.cm HISTORY: fall TECHNIQUE: Multiaxial CT images of the cervical spine were performed and reformatted in the sagittal and coronal plane without the use of contrast. A dose lowering technique was utilized adhering to the principles of ALARA. COMPARISON: None. FINDINGS: No fractures. No subluxation. Prevertebral soft tissues and the C1-C2 interval are intact. No pneumothorax. The C3-C4 facets are fused. There is anterior cervical discectomy and fusion from C4 through C7. IMPRESSION: No fractures within the cervical spine. XR chest 1V portable HISTORY: fall COMPARISON: Chest 11/29/2023. FINDINGS: No pneumothorax. No pleural effusions. The lungs are clear. The cardiac silhouette is top normal in size. Cervical spinal fusion hardware is again noted. There is a right shoulder prosthesis. No acute fractures. Suture material again noted within the right midlung zone. IMPRESSION: No significant change compared to the prior study. No acute process. XR lumbar spine 2-3V CLINICAL HISTORY: fall. Back pain. COMPARISON STUDY: None. FINDINGS: Moderate levoscoliosis of the lumbar spine. No acute fracture or subluxation. The L1-L2 vertebral bodies are fused. Moderate degenerative disease and facet osteoarthritis throughout the remaining lumbar spine. The visualized sacrum is intact. IMPRESSION: No acute fracture or subluxation within the lumbar spine. XR knee RT 1 or 2V routine, XR knee LT 1 or 2V routine CLINICAL HISTORY: b/l knee pain. Fall. COMPARISON STUDY: Left knee radiograph 06/09/2023. FINDINGS: No acute fracture or dislocation within the right or left knee. There is mild tricompartmental osteoarthritis within the right knee. No right knee effusion. Soft tissues are unremarkable. There is a left total knee arthroplasty. The hardware appears intact. A moderate left knee effusion persists. IMPRESSION: 1. No acute fracture or dislocation within the right or left knee. 2. Moderate left knee effusion, unchanged. 3. Left total knee arthroplasty again noted. Medications Administered ER Medications Given: Plasma-lyte 2000mg IV bolus Morphine 2mg IV x2 Morphine 4mg IV x3 ECG Rate (beats per minute): 88 Rhythm: normal sinus Findings: no acute ischemic change Comparison ECG Date: from (November 28, 2023) Change: no significant change Code Status & VTE Plan Code Status DNR/DNI VTE Prophylaxis Plan VTE Prophylaxis will be ordered: Yes PG Care Time/CCT Total # of Minutes Spent Total Time Spent with Patient: Total time spent is greater than 50% in coordination of care (as documented) at patient's floor/unit and/or counseling patient: Coding Level of Care Code 03730 INT INP/OBS CARE 3/75MIN Diagnoses Fall W19.XXXA Encounter type: initial encounter Rhabdomyolysis M62.82 Rhabdomyolysis type: non-traumatic Hypoxia R09.02 Generalized pain R52 Anemia D64.9 Anemia type: unspecified type (1) Fall Encounter type: initial encounter Qualified Code(s): W19.XXXA - Unspecified fall, initial encounter (2) Rhabdomyolysis Rhabdomyolysis type: non-traumatic Qualified Code(s): M62.82 - Rhabdomyolysis (5) Anemia Anemia type: unspecified type Qualified Code(s): D64.9 - Anemia, unspecified
[2023-12-13] MEDS: ACETAMINOPHEN 500 MG TAB PO STA (16:18)
[2023-12-13] MEDS: oxyCODONE HCL IR 5 MG TAB (IMMEDIATE RELEASE) PO PRN (19:22)
[2023-12-13] MEDS: PANTOprazole 40 MG TAB PO SCH (20:19)
[2023-12-13] MEDS: SUCRALFATE 1 GM/10 ML UDC PO SCH (20:19)
[2023-12-13] MEDS: GABAPENTIN 600 MG TAB PO SCH (20:19)
[2023-12-13] MEDS: ENOXAPARIN INJ 40 MG/0.4 ML SYR SQ SCH (22:19)
[2023-12-13] MEDS: POTASSIUM CHLORIDE CRTAB 20 MEQ TABCR PO STA (22:20)
[2023-12-13] MEDS: LACTATED RINGER'S 1,000 ML IV SCH (22:20)
[2023-12-13 22:57] LABS: Appearance Urine Cloudy (Clear); Bacteria Urine Automated 4+ (None Seen); Bilirubin Urine 1+ (Negative); Blood Urine 2+ (Negative); Cast Urine Automated 0-2 /lpf (0-2); Color Urine Dark Yellow; Epithelial Cell Urine Auto 0-2 /hpf (0-2); Glucose Urine UA Negative (Negative); Ketones Urine 1+ (Negative); Leukocyte Esterase Urine 1+ (Negative); Nitrite Urine Positive (Negative); Protein Urine 1+ (Negative); RBC Urine Automated >20 /hpf (0-2); Specific Gravity Urine 1.032 (1.000-1.030); Urobilinogen Urine Negative (Negative); WBC Urine Automated >50 /hpf (0-5); pH Urine 5.5 (4.5-7.5)
--- NOTE | 2023-12-13 23:21 | Communication Note ---
Date of Service: December 13, 2023 Notified by nursing at 2310 that patient continues to have urinary frequency and dysuria. Noting that patient's urinalysis returned positive and she is not actively receiving antibiotics. Patient otherwise asymptomatic. Vitals: Hemodynamically stable. Afebrile. Labs: Urinalysis positive for nitrites, leukocytes, blood, and WBCs. Urine cultures pending. Assessment/Plan: - Given patient's positive urinalysis and ongoing symptoms, diagnostic for UTI - Patient has history of brown-sensitive Klebsiella in urine - Will start Ceftriaxone 1g IV q24h (note allergy to Sulfas/Bactrim) - Continue to follow for urine culture and narrow PO as appropriate. Resident Activity Tracking Resident Involvement: Resident Care Provided Care Provided: Adult Hospital Medicine
[2023-12-13] MEDS ORDERED: cefTRIAXone SODIUM 1,000 MG/50 ML BAG IV SCH (23:30)
[2023-12-13] MEDS: cefTRIAXone SODIUM 2,000 MG/50 ML BAG IV SCH (23:43)
[2023-12-13] MEDS: ACETAMINOPHEN 500 MG TAB PO SCH (23:44)
[2023-12-14] MEDS: MELATONIN 3 MG TAB PO PRN (00:17)
[2023-12-14] MEDS: PHENAZOPYRIDINE HCL 100 MG TAB PO PRN (00:22)
[2023-12-14 06:35] LABS: Basophils # (auto) 0.02 K/uL (0.00-0.20); Basophils % (auto) 0.4 %; Eosinophils % (auto) 1.8 %; Hematocrit (blood only) 33.1 % (37.0-47.0); Hemoglobin 10.2 g/dl (12.0-16.0); Immature Granulocytes # (auto) 0.03 K/uL (0.01-0.20); Immature Granulocytes % (auto) 0.5 %; Lymphocytes # (auto) 1.46 K/uL (1.20-3.40); Lymphocytes % (auto) 25.6 %; Mean Corpuscular Hemoglobin 26.9 pg (25.0-34.0); Mean Corpuscular Hgb Conc 30.8 g/dL (32.0-36.0); Mean Corpuscular Volume 87.3 fL (80.0-100.0); Monocytes # (auto) 0.53 K/uL (0.11-0.59); Monocytes % (auto) 9.3 %; Neutrophils # (auto) 3.56 K/uL (1.40-6.50); Neutrophils % (auto) 62.4 %; Platelet Count 249 K/uL (130-400); RDW Standard Deviation 51.9 fL (36.4-46.3); Red Blood Count 3.79 M/uL (4.20-5.40)
[2023-12-14 06:54] LABS: Albumin Globulin Ratio 1.1 (0.9-2); BUN Creatinine Ratio 24.4 (10-20); Bilirubin,Total 0.6 mg/dl (0.2-1.0); Calcium 8.5 mg/dl (8.6-10.3); Creatinine Clr Calc Pharmacy 145.9 ml/min; Est GFR (African American) 123.9 ml/min; Est GFR (Non-African American) 106.9 ml/min; Globulin 2.7 gm/dl (2.5-4.0); Magnesium 1.9 mg/dl (1.7-2.4); Potassium 4.4 mmol/L (3.5-5.1); Total Protein 5.7 gm/dl (6.0-8.3)
[2023-12-14] MEDS: VITAMIN B COMPLEX TAB PO SCH (08:28)
[2023-12-14] MEDS: buPROPion XL 150 MG TABCR PO SCH (08:29)
[2023-12-14] MEDS: buPROPion XL 300 MG TABCR PO SCH (08:29)
[2023-12-14] MEDS: MULTIVITAMIN TAB PO SCH (08:29)
[2023-12-14] MEDS: TIMOLOL MALEATE 0.5% OP SOLN 5 ML BTL OP SCH (08:32)
[2023-12-14] MEDS ORDERED: DEXTROAMPHETAMINE AMPHETAMINE 30 MG PO SCH (09:00)
--- NOTE | 2023-12-14 10:07 | Hospitalist Progress Note ---
Date of Service December 14, 2023 Assessment & Plan (1) Fall: Plan: She cannot recollect any details regarding falling at home. She does state that she woke up naked however. She does have evidence of UTI and perhaps the syncope was related to the urinary tract infection. Gabapentin remains on hold. No evidence of acute CVA. OT and PT ordered (2) Rhabdomyolysis: Plan: Mild. CK is down to 1426 this morning, December 13. IV fluids have been tapered down. Serial labs (3) Hypoxia: Plan: Present on admission. Now resolved. She is on room air at the time of my rounds this morning, December 13. Admission chest x-ray is unremarkable. (4) Generalized pain: Plan: Opioid dependent. Undoubtedly aggravated by mild rhabdomyolysis. Supportive care (5) Anemia: Plan: No overt GI bleeding seen. Serial labs Plan To be determined. OT and PT assessments requested Admission and Anticipated Discharge Date Admission Date: December 13, 2023 Subjective Alert and oriented. She has an IV in the right upper extremity so the IV that was placed in the right ankle area while in the ER will be removed. CK level is down to 1426 and IV fluid rate has been discontinued. Urine culture is pending. Continue intravenous Rocephin. Gabapentin is on hold. Potassium has been corrected to 4.4. Review of Systems 2 Review of Systems: Constitutional-no fever or chills ENT-no blurred vision, no double vision, no epistaxis, no sore throat Respiratory-no cough, no wheezing, no shortness of breath Cardiac-no palpitations, no chest pain, no syncope GI-no nausea, vomiting, diarrhea, melena, hematochezia -no urinary retention, no urinary incontinence, no dysuria, no hematuria Musculoskeletal-chronic pain, no muscle tenderness Skin-no bruising, no rashes, no pruritus Neuro-no isolated weakness, no paresthesia, no weakness Psych-appears depressed Physical Exam 2 Physical Exam: General-alert and oriented x3, no fever, no chills HEENT-head atraumatic and normocephalic, pupils equal and reactive to light, extraocular muscles intact Neck-no lymphadenopathy or thyromegaly, trachea midline Chest-clear to auscultation. No rales, wheezing or rhonchi Cardiac-regular rate and rhythm, normal S1 and S2 Abdomen-normal bowel sounds, no hepatosplenomegaly Extremities-no cyanosis, clubbing, or edema Neuro-cranial nerves II through XII intact, motor and sensory function within normal limits, strength symmetrical, no focal deficits Psych-depressed flat affect Results & Data Results & Data Vital Signs (Past 12 Hours) Vital Signs Temp Pulse Pulse Resp BP Pulse Ox O2 Del Method 12/14/23 09:34 60 97 Nasal Cannula 12/14/23 07:46 36.7 C 71 16 145/80 H 98 Nasal Cannula 12/14/23 03:01 36.5 C 79 18 135/80 98 Nasal Cannula 12/13/23 22:43 77 12/13/23 22:36 36.5 C 78 18 146/74 H 98 Nasal Cannula O2 Flow Rate 12/14/23 09:34 2 12/14/23 07:46 3 12/14/23 03:01 3 12/13/23 22:43 12/13/23 22:36 3 Laboratory Results 12/14/23 05:52 12/14/23 05:52 PG Care Time/CCT Total # of Minutes Spent Total Time Spent with Patient: Total time spent is greater than 50% in coordination of care (as documented) at patient's floor/unit and/or counseling patient: Coding Level of Care Code 62012 SUB INP/OBS CARE 3/50MIN Diagnoses Fall W19.XXXA Encounter type: initial encounter Rhabdomyolysis M62.82 Rhabdomyolysis type: non-traumatic Hypoxia R09.02 Generalized pain R52 Anemia D64.9 Anemia type: unspecified type (1) Fall Encounter type: initial encounter Qualified Code(s): W19.XXXA - Unspecified fall, initial encounter (2) Rhabdomyolysis Rhabdomyolysis type: non-traumatic Qualified Code(s): M62.82 - Rhabdomyolysis (5) Anemia Anemia type: unspecified type Qualified Code(s): D64.9 - Anemia, unspecified
--- NOTE | 2023-12-14 12:29 | Electrocardiogram Report ---
Test Reason : Blood Pressure : / mmHG Vent. Rate : 088 BPM Atrial Rate : 088 BPM P-R Int : 164 ms QRS Dur : 088 ms QT Int : 378 ms P-R-T Axes : 060 -01 052 degrees QTc Int : 457 ms Normal sinus rhythm Normal ECG When compared with ECG of 28-NOV-2023 23:52, No significant change was found Confirmed by Zach Aceves ([id number]) on 12/14/2023 12:29:23 PM Referred By: Confirmed By:Zach Aceves
[2023-12-14] MEDS: SUMAtriptan succinate 100 MG TAB PO PRN (16:57)
[2023-12-15 06:56] LABS: Basophils # (auto) 0.04 K/uL (0.00-0.20); Basophils % (auto) 0.9 %; Eosinophils # (auto) 0.18 K/uL (0.00-0.50); Hematocrit (blood only) 33.2 % (37.0-47.0); Hemoglobin 10.3 g/dl (12.0-16.0); Immature Granulocytes # (auto) 0.02 K/uL (0.01-0.20); Immature Granulocytes % (auto) 0.4 %; Lymphocytes # (auto) 1.09 K/uL (1.20-3.40); Lymphocytes % (auto) 24.5 %; Mean Corpuscular Hemoglobin 26.7 pg (25.0-34.0); Mean Platelet Volume 9.2 fL (9.4-12.4); Monocytes # (auto) 0.46 K/uL (0.11-0.59); Monocytes % (auto) 10.3 %; Neutrophils # (auto) 2.66 K/uL (1.40-6.50); Neutrophils % (auto) 59.9 %; Platelet Count 277 K/uL (130-400); RDW Coefficient of Variation 15.9 % (11.5-14.5); RDW Standard Deviation 50.2 fL (36.4-46.3); Red Blood Count 3.86 M/uL (4.20-5.40); White Blood Count 4.45 K/ul (4.8-10.8)
[2023-12-15 07:15] LABS: BUN Creatinine Ratio 19.4 (10-20); Calcium 8.4 mg/dl (8.6-10.3); Creatinine Clr Calc Pharmacy 167.1 ml/min; Est GFR (African American) 129.3 ml/min; Est GFR (Non-African American) 111.6 ml/min; Potassium 3.5 mmol/L (3.5-5.1)
[2023-12-15] MEDS: hydrALAZINE HCL 20 MG/ML VIAL IV ONE (08:07)
[2023-12-15] MEDS: oxyCODONE HCL IR 5 MG TAB (IMMEDIATE RELEASE) PO PRN (10:21)
[2023-12-15] MEDS: LOPERAMIDE HCL 2 MG CAP PO PRN (10:37)
[2023-12-15] MEDS: ONDANSETRON INJ 2 MG/ML 2 ML VIAL IV PRN (13:19)
--- NOTE | 2023-12-15 15:27 | Hospitalist Progress Note ---
Date of Service December 15, 2023 Assessment & Plan (1) Fall: Plan: She cannot recollect any details regarding falling at home. She does state that she woke up naked however. She does have evidence of UTI and perhaps the syncope was related to the urinary tract infection. Gabapentin had been resumed at a lower dose. No evidence of acute CVA. OT and PT ordered, recommending short-term rehab (2) Rhabdomyolysis: Plan: Mild. CK is trending down. IV fluids discontinued as blood pressure is creeping up. (3) Hypoxia: Plan: Present on admission. Now resolved. She is on room air. Admission chest x-ray is unremarkable. (4) Generalized pain: Plan: Opioid dependent. Undoubtedly aggravated by mild rhabdomyolysis. Supportive care Gabapentin has been resumed at half the dose. The lower dose of gabapentin could be causing the increased pain. The patient has been informed that we are making a choice. (5) Anemia: Plan: No overt GI bleeding seen. Serial labs (6) Acute encephalopathy: Plan: Patient presented with encephalopathy which could be partly metabolic due to UTI and partly toxic due to narcotics and gabapentin. Resolved Patient is back to baseline Gabapentin resumed at half the dose UTI is being treated Plan PT/OT recommended short-term rehab. Case management on board Admission and Anticipated Discharge Date Admission Date: December 13, 2023 Subjective Patient is complaining of back pain today. Review of Systems Review of Systems: All systems reviewed & are unremarkable except as noted in Subjective Physical Exam Physical Exam: General: Awake, conversant Heart: S1, S2/regular rate and rhythm, no murmur rubs or gallops Lungs: Clear to auscultation bilaterally. Normal effort Abdomen: Soft/nontender/nondistended. No hepatosplenomegaly Extremities: No clubbing/cyanosis. No edema Behavior: Appropriate, cooperative Results & Data Results & Data Vital Signs (Past 12 Hours) Vital Signs Temp Pulse Pulse Resp BP Pulse Ox O2 Del Method 12/15/23 15:18 36.7 C 70 18 161/82 H 95 Room Air 12/15/23 11:07 37.0 C 65 18 150/81 H 92 Room Air 12/15/23 07:57 36.7 C 86 18 185/103 H 97 Room Air 12/15/23 07:21 75 Laboratory Results Abnormal lab results 12/15/23 Range/Units 06:13 WBC 4.45 L (4.8-10.8) K/ul RBC 3.86 L (4.20-5.40) M/uL Hgb 10.3 L (12.0-16.0) g/dl Hct 33.2 L (37.0-47.0) % MCHC 31.0 L (32.0-36.0) g/dL RDW Std Deviation 50.2 H (36.4-46.3) fL RDW Coeff of Faizan 15.9 H (11.5-14.5) % MPV 9.2 L (9.4-12.4) fL Lymph # (Auto) 1.09 L (1.20-3.40) K/uL Creatinine 0.36 L (0.6-1.2) mg/dl Glucose 100 H (70-99(Fasting)) mg/dl Calcium 8.4 L (8.6-10.3) mg/dl Total Creatine Kinase 712 H (26-192) U/L PG Care Time/CCT Total # of Minutes Spent Total Time Spent with Patient: Total time spent is greater than 50% in coordination of care (as documented) at patient's floor/unit and/or counseling patient: Coding Level of Care Code 56383 SUB INP/OBS CARE MIN Diagnoses Fall W19.XXXA Encounter type: initial encounter Rhabdomyolysis M62.82 Rhabdomyolysis type: non-traumatic Hypoxia R09.02 Generalized pain R52 Anemia D64.9 Anemia type: unspecified type Acute encephalopathy G93.40 (1) Fall Encounter type: initial encounter Qualified Code(s): W19.XXXA - Unspecified fall, initial encounter (2) Rhabdomyolysis Rhabdomyolysis type: non-traumatic Qualified Code(s): M62.82 - Rhabdomyolysis (5) Anemia Anemia type: unspecified type Qualified Code(s): D64.9 - Anemia, unspecified
[2023-12-16 07:03] LABS: Basophils # (auto) 0.02 K/uL (0.00-0.20); Basophils % (auto) 0.5 %; Eosinophils # (auto) 0.15 K/uL (0.00-0.50); Eosinophils % (auto) 4.1 %; Hematocrit (blood only) 35.7 % (37.0-47.0); Hemoglobin 10.8 g/dl (12.0-16.0); Lymphocytes # (auto) 1.28 K/uL (1.20-3.40); Lymphocytes % (auto) 35.2 %; Mean Corpuscular Hemoglobin 26.2 pg (25.0-34.0); Mean Corpuscular Hgb Conc 30.3 g/dL (32.0-36.0); Mean Corpuscular Volume 86.4 fL (80.0-100.0); Mean Platelet Volume 9.1 fL (9.4-12.4); Monocytes # (auto) 0.41 K/uL (0.11-0.59); Monocytes % (auto) 11.3 %; Neutrophils # (auto) 1.78 K/uL (1.40-6.50); Neutrophils % (auto) 48.9 %; Platelet Count 325 K/uL (130-400); RDW Coefficient of Variation 15.9 % (11.5-14.5); RDW Standard Deviation 50.3 fL (36.4-46.3); Red Blood Count 4.13 M/uL (4.20-5.40); White Blood Count 3.64 K/ul (4.8-10.8)
[2023-12-16 07:28] LABS: BUN Creatinine Ratio 9.5 (10-20); Calcium 8.8 mg/dl (8.6-10.3); Creatinine Clr Calc Pharmacy 142.9 ml/min; Est GFR (African American) 122.9 ml/min; Est GFR (Non-African American) 106.1 ml/min; Potassium 3.4 mmol/L (3.5-5.1)
[2023-12-16] MEDS: POTASSIUM CHLORIDE CRTAB 20 MEQ TABCR PO STA (08:58)
--- NOTE | 2023-12-16 15:00 | Discharge Summary ---
Date of Service December 16, 2023 Admission HPI Per Admitting Provider Keri Mcgraw is a 68 year old female who presents from home after falling in the bathroom 2 days previously. She cannot remember any events surrounding the fall. Unknown if she lost consciousness. She couldn't walk but eventually crawled to the living room to call for help. She reports pain currently everywhere despite Fentanyl given on route and morphine given in the ER. Severity 10/10 currently. No fever, chills, headache, respiratory, gastrointestinal or urinary symptoms. She reports not taking any of her usual medications since Thursday. She was recently discharged 13 days ago with a diagnosis of altered mental status with unclear etiology - ?polypharmacy vs. mild dehydration. Admission Exam Per Admitting Provider Constitutional: well developed; + not well nourished and no acute distress Eyes: PERRL, conjunctivae normal, anicteric sclerae ENMT: Mouth: + dry oral mucous membranes Respiratory: normal respiratory effort, lungs clear to auscultation Cardiovascular: RRR, no murmur, no edema Gastrointestinal (Abdomen): normal bowel sounds, soft, nontender, no hepatosplenomegaly Musculoskeletal: no cyanosis or clubbing, extremities motor strength 5/5 Skin: no rashes, warm and dry Neurologic: moves all extremities and awake; no focal motor deficits and not confused Psychiatric: Orientation: alert, oriented to person, oriented to place and oriented to time (year only) Genitourinary: + CVA tenderness (bilateral) Principal Diagnosis Acute metabolic/toxic encephalopathy Fall Rhabdomyolysis Discharge Exam General: Awake, conversant Heart: S1, S2/regular rate and rhythm, no murmur rubs or gallops Lungs: Clear to auscultation bilaterally. Normal effort Abdomen: Soft/nontender/nondistended. No hepatosplenomegaly Extremities: No clubbing/cyanosis. No edema Behavior: Appropriate, cooperative Discharge Data Allergies Allergy/AdvReac Type Severity Reaction Status Date / Time aripiprazole [From Abilify] Allergy Severe Tremors Unverified 12/13/23 15:38 bee venom protein (honey bee) Allergy Severe Anaphylaxis Verified 12/13/23 15:38 sulfamethoxazole Allergy Unknown at age 20, Verified 12/13/23 15:38 can not remember what happened trimethoprim Allergy Unknown at age 20, Verified 12/13/23 15:38 can not remember what happened lactose AdvReac Intermediate ice cream Verified 12/13/23 15:38 gives her diarrhea milk AdvReac Intermediate Diarrhea Verified 12/13/23 15:38 Consultations 12/13/23 15:48 ED Decision to Admit Stat Ordered Studies 12/13/23 12:01 CT cervical spine wo con Stat CT head/brain wo con Stat Hospital Course (1) Fall: She cannot recollect any details regarding falling at home. She does state that she woke up naked however. She does have evidence of UTI and perhaps the syncope was related to the urinary tract infection. Gabapentin had been resumed at a lower dose. No evidence of acute CVA. PT and OT cleared the patient for discharge today. (2) Rhabdomyolysis: Mild. CK has trended down. IV fluids discontinued (3) Hypoxia: Present on admission. Now resolved. She is on room air. Admission chest x-ray is unremarkable. (4) Generalized pain: Opioid dependent. Undoubtedly aggravated by mild rhabdomyolysis. Supportive care Gabapentin has been resumed at half the dose. The lower dose of gabapentin could be causing the increased pain. The patient has been informed that we are making a choice. (5) Anemia: No overt GI bleeding seen. Serial labs (6) Acute encephalopathy: Patient presented with encephalopathy which could be partly metabolic due to UTI and partly toxic due to narcotics and gabapentin. Resolved Patient is back to baseline Gabapentin resumed at half the dose UTI is being treated. Discharged on Keflex. Plan PT/OT recommended short-term rehab. Case management on board Total Time Total Time Spent Total Time Spent (In Minutes): 35 Discharge Plan Discharge Items Patient Disposition: Home - Self-Care Reason For Visit: FALL Discharge Diagnosis: Acute metabolic/toxic encephalopathy Fall Rhabdomyolysis Activity: Resume your previous activity Non-emergency contact: Primary Care Provider Call non-emergency contact if: you have any medication questions and your symptoms worsen Follow-up/Referrals: Sergio Peacock MD [Primary Care Provider] - Diet: Heart Healthy and Lactose Intolerant Addtl Attending Provider Instructions: Advised to follow-up with PCP in 1 week Pending Studies at Discharge: No Stand-Alone Forms: My [facility] Medications and DC Order Prescriptions: New cephalexin 500 mg capsule 500 mg PO BID 3 Days Qty: 6 0RF Continued pantoprazole 40 mg tablet,delayed release (DR/EC) 40 mg PO BID 90 Days Qty: 180 1RF sucralfate [Carafate] 100 mg/mL suspension 10 ml PO QID Qty: 1000 2RF Rx Instructions: LAST FILLED 10/16/23 FOR 25 DAYS. swish in mouth and swallow; use after food/drink bupropion HCl [Wellbutrin XL] 300 mg Tablet Extended Release 24 Hr 300 mg PO QAM Rx Instructions: TAKE WITH 150 MG ER = 450MG EVERY MORNING bupropion HCl [Wellbutrin XL] 150 mg Tablet Extended Release 24 Hr 150 mg PO QAM Rx Instructions: TAKE WITH 300MG XL =450MG XL EVERY MORNING sumatriptan succinate 100 mg tablet 100 mg PO UD MDD 2TABS PRN (Reason: Migraine Headache) Rx Instructions: ONE TABLET, NEEDED FOR MIGRAINE, MAY REPEAT IN TWO HOURS. MAX DAILY = 2 TABS dextroamphetamine-amphetamine 30 mg tablet 30 mg PO BID Rx Instructions: LAST FILLED 09/25/23 FOR 60 TABS/30 DAYS. metoclopramide HCl 10 mg tablet 10 mg PO BID PRN (Reason: Nausea) vitamin B complex Tablet 1 tab PO QAM multivitamin [Multiple Vitamins] Tablet 1 tab PO QAM epinephrine [EpiPen] 0.3 mg/0.3 mL Auto-Injector 0.3 mg IM DIRECTED PRN (Reason: Allergic Reaction) aspirin 500 mg Tablet,Delayed Release (Dr/Ec) 500 - 2,500 mg PO DAILY PRN (Reason: Pain) Pepto-Bismol 262 mg Tablet 524 mg PO QID PRN (Reason: .gi-upset) timolol maleate 0.5 % drops 1 drp OPB QAM tafluprost (PF) 0.0015 % dropperette 2 drp OPB HS Changed gabapentin 600 mg tablet 900 mg PO BID Qty: 0 0RF Discharge Orders: Discharge Order (Routine); Ordered 12/16/23 Ordered By: Ko Reyes/Other Patient Handouts: Falls Prevent Use Cane Walker, ED Chronic Pain Admission Data Admit Date/Time: 12/16/23 13:35 Attending Provider: Bill Sims Admit Provider: Bill Sims Primary Care Provider: Sergio Peacock Other Providers: Bill Sims Other Interventions: Discharge Summary Assessment (RN) Last Done: 12/16/23 16:29 Coding Level of Care Code 29517 INP/OBS DISCH >30 MIN Diagnoses Fall W19.XXXA Encounter type: initial encounter Rhabdomyolysis M62.82 Rhabdomyolysis type: non-traumatic Hypoxia R09.02 Generalized pain R52 Anemia D64.9 Anemia type: unspecified type Acute encephalopathy G93.40
--- OUTSIDE RECORDS SUMMARY | 2023-12-17 02:53 | External Medical Summary | Continuity of Care Document ---
Author Name Unknown Organization [facility] [id number] [place] [phone] Care Team Providers Care Computational Theory Scientist Name Role Phone Sergio Peacock Karen Primary Care Physician [phone] Encounter [id number] Date(s): 12/11/23 - 12/11/23 [facility] [address] [address] [phone] Encounter Diagnosis Body mass index [BMI] 34.0-34.9, adult(Discharge Diagnosis) - 12/11/23 Chronic back pain(Discharge Diagnosis) - 12/11/23 History of left knee surgery(Discharge Diagnosis) - 12/11/23 Knee pain, left(Discharge Diagnosis) - 12/11/23 Gait instability(Discharge Diagnosis) - 12/11/23 Hospital discharge follow-up(Discharge Diagnosis) - 12/11/23 Encounter to establish care(Discharge Diagnosis) - 12/11/23 Migraines(Discharge Diagnosis) - 12/11/23 Headache, chronic daily(Discharge Diagnosis) - 12/11/23 Discharge Disposition: Home or Self Care Attending Physician: DO Jerez Allison B Referring Physician: DO Oliver Gretchen Elizabeth Allergies, Adverse Reactions, Alerts Substance Criticality Severity Reaction Reaction Severity Status Bactrim Hives Active Reglan Tremor Active Abilify Tremor Active Bee stings Anaphylaxis Active Assessment and Plan Extracted from: Title:FCM: Establish, hosp f/u, chronic pain Aut hor:DO Antoine Amanda Date:12/11/23 1.Chronic back pain Chronic condition not at goal/exacerbated/progressive/side effects of treatment Goal: _ Data:_ Plan: Discussed pain in depth with patient. Discussed with her that ideally we wean her off of opioids as long termuse can cause hyper analgesia and pt expressed a desire to also wean down as at one point she was just on 5 mg morphine once a day. She states her knee pain has been very much limiting her activity and the more sedentary sheis the worse her pain in her back is. She expresses worry of withdrawal as she had in the past when weaned off of dilaudid andworry about having pain without opioids. Ultimately she is agreeable. Discussed trying cymbalta again but pt hesitant at todays visit. Will fill current regime for 2 weeks, then will slow wean morphine XR from 15-15 to 15-10 to 10-10 and so forth, goal to stop morphine or at least reduce to 5 mg daily. 2.Knee pain, left Chronic condition not at goal/exacerbated/progressive/side effects of treatment Goal: _ Data:_ Plan: Will send to pain management and orthopedics as she would like to see our orthopedics to see what they can offer her for her knee since PT and injections have failed and her increased opioid use is due to her knee pain. 3.Gait instability Chronic condition, at goal Goal: _ Data:_ Plan: Will send to PT for gait instability secondary to and that worsens her knee pain. 4.Hospital discharge follow-up Symptoms leading to her admission have resolved. Alert and oriented today. Reviewed [facility], work up there was negative. She was seen by me during the admission she is following up on. 5.Encounter to establish care Here to establish with me as her PCP is unwilling to take over her opioid scripts. History tab reviewed and partially completed this visit. Full medical history not reviewed and to be reviewed at subsequent visits. Pt is to complete release of records forms for us from her previous PCP, pain management doc, and [facility]. Medications acetaminophen-hydrocodone 325 mg-5 mg oral tablet Start: 12/11/23 5:17:00 PM EDT, 1 tab, PO, q6h, Disp# 30 tab, Refills: 0, PRN: as needed for pain, Pharmacy: [facility]/pharmacy #[id number] Start Date: 12/11/23 Stop Date: 01/10/24 Status: Ordered aspirin 81 mg oral capsule Start: 12/11/23 3:00:00 PM EDT Start Date: 12/11/23 Status: Ordered buPROPion 150 mg/24 hours (XL) oral tablet, extended release Start: 12/11/23 2:46:00 PM EDT, 1 tab, PO, q24h Start Date: 12/11/23 Status: Ordered buPROPion 300 mg/24 hours (XL) oral tablet, extended release Start: 12/11/23 2:46:00 PM EDT, 1 tab, PO, q24h Start Date: 12/11/23 Status: Ordered dextroamphetamine 30 mg oral tablet Start: 12/11/23 2:59:00 PM EDT, Refills: 0 Start Date: 12/11/23 Status: Ordered gabapentin 600 mg oral tablet TAKE 2 TABLETS BY MOUTH 3 TIMES A DAY Start Date: 12/11/23 Status: Ordered metoclopramide 10 mg oral tablet TAKE ONE TABLET BY MOUTH THREE TIMES A DAY NEEDED Start Date: 12/11/23 Status: Ordered morphine 15 mg (8-12 HR) oral tablet, extended release Start: 12/11/23 5:17:00 PM EDT, 1 tab, PO, q12h, Disp# 28 tab, Refills: 0, Pharmacy: [facility]/pharmacy #[id number] Start Date: 12/11/23 Status: Ordered multivitamin Start: 12/11/23 2:59:00 PM EDT, 1 tab, PO, Daily Start Date: 12/11/23 Status: Ordered pantoprazole 40 mg oral delayed release tablet Start: 12/11/23 3:01:00 PM EDT, Start Date: 12/11/23 Status: Ordered Pepto-Bismol Start: 12/11/23 3:00:00 PM EDT Start Date: 12/11/23 Status: Ordered sucralfate 1 g/10 mL oral suspension Start: 12/11/23 3:02:00 PM EDT, 10 mL, PO, bid Start Date: 12/11/23 Status: Ordered SUMAtriptan 100 mg oral tablet Start: 12/11/23 2:46:00 PM EDT, 1 tab, PO, ONCE, PRN: as needed for migraine headache Start Date: 12/11/23 Status: Ordered tafluprost 0.0015% ophthalmic solution Start: 12/11/23 3:00:00 PM EDT Start Date: 12/11/23 Status: Ordered timolol hemihydrate 0.25% ophthalmic solution Start: 12/11/23 3:01:00 PM EDT, 1 drop, both eyes, Daily Start Date: 12/11/23 Status: Ordered tiZANidine 4 mg oral tablet Start: 12/11/23 2:59:00 PM EDT Start Date: 12/11/23 Status: Ordered Vitamin B Complex oral tablet Start: 12/11/23 2:57:00 PM EDT, 1 tab, PO, Daily Start Date: 12/11/23 Status: Ordered Mental Status 12/11/23 Barriers to Learning one year None evide nt Mandatory Health Literacy Documentation Yes Health Literacy Communication Barriers N ever Primary Language Liberian Problem List Condition Confirmation Course Effective Dates Status Health St atus Informant Chronic back pain Confirmed Active Diagnosis Diagnosis Type Effective Dates Health Status Clinical Service Informant Chronic back pain Discharge Diagnosis 12/11/23 Non-Specified Body mass index [BMI] 34.0-34.9, adult Discharge Diagnosis 12/11/23 Non-Specified Gait instability Discharge Diagnosis 12/11/23 Non-Specified Knee pain, left Discharge Diagnosis 12/11/23 Non-Specified History of left knee surgery Discharge Diagnosis 12/11/23 Non-Specified Hospital discharge follow-up Discharge Diagnosis 12/11/23 Non-Specified Encounter to establish care Discharge Diagnosis 12/11/23 Non-Specified Migraines Discharge Diagnosis 12/11/23 Non-Specified Headache, chronic daily Discharge Diagnosis 12/11/23 Non-Specified Vital Signs Most recent to oldest [Reference Range]: 1 Height 162.5 cm (12/11/23 1:53 PM) Patient Weight 92.2 kg (12/11/23 1:53 PM) Body Mass Index 34.92 kg/m2 (12/11/23 1:53 PM) Heart Rate 79 bpm (12/11/23 1:53 PM) Respiratory Rate 18 br/min (12/11/23 1:53 PM) Blood Pressure 124/76mmHg (12/11/23 1:53 PM) Cuff Pulse Pressure 48 mmHg (12/11/23 1:53 PM) Social History Social History Type Response Smoking Status Never smoker entered on: 12/11/23 Sex Female FCM Outpt Note * DO Antoine Amanda: PERFORM DO Jerez Allison B: MODIFY Event Display: FCM Outpt Note Authored Date: [id number] Chief Complaint hospital f/u History of Present Illness Pt is a 68 yo female who presents for #Establish care #Hospital follow-up - was recently at [facility] for episode of confusion while at a grocery store, which has resolved and the workup was negative - would like to switch from her PCP in [place] to us for convenience as she is living in/around [place] since 2019 - issue patient noted in the hospital was that she has chronic pain and was seeing a chronic pain doctor Dr. Richie Campbell at [facility] for many years but when she went for an appt recently she was told he had to stop practicing for health reasons and that she would need to se ek care elsewhere, so she contacted her PCP and they said they would be unwilling toprescribe heropioids as their practice has agreed to not prescribe them for anyone - was seeing Dr. Quiroz because she previously lived close tohis office and wanted to stay consistently with him - has hx of multiple surgeries on L knee, ankles, hips, neck surgery - hx gastric bypass 2003 at , hx hysterectomyat age 33, appendectomy and cholecystectomy - states she had a telehealth appt with her orthopedic doc on 11/30 but they did not call her so apptwas missed, so looking to see orthopedics about her knee - endoscopy last 2 years ago for bleeding ulcers - colonoscopy; 4 years ago, 3-5 recommended due to f/u for polyps - had a pelvic sling placed in 2002, [facility] #Chronic pain - lower back pain to middle of spine has been chronic for her, states until more recently she was on 5 mg morphine daily only - states that her back pain gets much better when she is moving around and that when she was working out her pain was almost zero - was doing back injections with a doc in [place] that help a ton, last one was a year ago and she still feels it has been benefitting her - she states recently it has really been her knee that has been causing her significant issues - has done PT before for back with moderate benefit - has been on Vicodin the last 3mo (uses 1-3 pills a day)and has been on morphine ER for the last 12 years or so - tried cymbaltain the past for fibromyalgia but states it did not really seem to help Review of Systems Per HPI. Physical Exam Vitals & Measurements HR:79(Monitored) RR:18 BP:124/76 SpO2:96% HT:162.5cm WT:92.200kg(Dosing) WT:92.2kg BMI:34.92 PHQ2 Data(Data Documented on:12/11/2023 13:52) Emotional health assessment NEGATIVE General:Alert and oriented, no acute distress, HEENT: Normocephalic, moist oral mucosa, Cardiovascular:Regular rate and rhythm, Respiratory: No increased resp effort, no resp distress Integumentary:Warm, pink, dry, Psych: Mood-affect congruence. Assessment/Plan 1.Chronic back pain Chronic condition not at goal/exacerbated/progressive/side effects of treatment Goal: _ Data:_ Plan: Discussed pain in depth with patient. Discussed with her that ideally we wean her off of opioids as long termuse can cause hyper analgesia and pt expressed a desire to also wean down as at one point she was just on 5 mg morphine once a day. She states her knee pain has been very much limiting her activity and the more sedentary sheis the worse her pain in her back is. She expresses worry of withdrawal as she had in the past when weaned off of dilaudid andworry about having pain without opioids. Ultimately she is agreeable. Discussed trying cymbalta again but pt hesitant at todays visit. Will fill current regime for 2 weeks, then will slow wean morphine XR from 15-15 to 15-10 to 10-10 and so forth, goal to stop morphine or at least reduce to 5 mg daily. 2.Knee pain, left Chronic condition not at goal/exacerbated/progressive/side effects of treatment Goal: _ Data:_ Plan: Will send to pain management and orthopedics as she would like to see our orthopedics to see what they can offer her for her knee since PT and injections have failed and her increased opioid use is due to her knee pain. 3.Gait instability Chronic condition, at goal Goal: _ Data:_ Plan: Will send to PT for gait instability secondary to and that worsens her knee pain. 4.Hospital discharge follow-up Symptoms leading to her admission have resolved. Alert and oriented today. Reviewed [facility], work up there was negative. She was seen by me during the admission she is following up on. 5.Encounter to establish care Here to establish with me as her PCP is unwilling to take over her opioid scripts. History tab reviewed and partially completed this visit. Full medical history not reviewed and to be reviewed at subsequent visits. Pt is to complete release of records forms for us from her previous PCP, pain management doc, and [facility]. Attestation Pt seen and examined in concert with Dr. Antoine_, agree with history and physical as documented above. Plan reviewed in detail. Any corrections or additions are noted here - Agree with plan. Long discussion with patient and will wean patient. Need old records. Continue current dose for now with plan to wean and patient agreeable. To Orthopedics. To consider started Cymbalta. Follow up in the office in 2 weeks or sooner as needed. Problem List/Past Medical History Ongoing Chronic back pain Medications acetaminophen-hydrocodone(acetaminophen-hydrocodone 325 mg-5 mg oral tablet), 1 tab, PO, q6h, PRN aspirin(aspirin 81 mg oral capsule) bismuth subsalicylate(Pepto-Bismol) buPROPion(buPROPion 150 mg/24 hours (XL) oral tablet, extended release), 150 mg= 1 tab, PO, q24h buPROPion(buPROPion 300 mg/24 hours (XL) oral tablet, extended release), 300 mg= 1 tab, PO, q24h dextroamphetamine(dextroamphetamine 30 mg oral tablet) gabapentin(gabapentin 600 mg oral tablet) metoclopramide(metoclopramide 10 mg oral tablet) morphine(morphine 15 mg (8-12 HR) oral tablet, extended release), 15 mg= 1 tab, PO, q12h multivitamin, 1 tab, PO, Daily multivitamin(Vitamin B Complex oral tablet), 1 tab, PO, Daily pantoprazole(pantoprazole 40 mg oral delayed release tablet) sucralfate(sucralfate 1 g/10 mL oral suspension), 1 g= 10 mL, PO, bid SUMAtriptan(SUMAtriptan 100 mg oral tablet), 100 mg= 1 tab, PO, ONCE, PRN tafluprost ophthalmic(tafluprost 0.0015% ophthalmic solution) timolol ophthalmic(timolol hemihydrate 0.25% ophthalmic solution), 1 drop, both eyes, Daily tiZANidine(tiZANidine 4 mg oral tablet) Allergies AbilifyTremor Bactriives Bee stingsAnaphylaxis ReglanTremor Social History Smoking Status Never smoked cigarettes Alcohol - Comments: Formerly struggled with alcohol, no drinks since 2011, strong family hx alcoholuse Employment/School - Comments: On 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[employer] Home/Environment - Comments: Lives alone, 3 cats Substance Abuse - Comments: 1979 had used multiple drugs, 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 that year Tobacco Use:Never smoker Recommendations Health Maintenance Pending(in the next year) Due Adult Influenza Vaccine due11/29/23and every 1year Medicare Annual Wellness Visit due12/11/23and every 1year Satisfied(in the past 1 year) There are no satisfied recommendations within the defined date range Electronic Signature on File Electronically Reviewed/Signed by: Odalys Antoine DO Author Signature Dt/Tm:12/11/2023 05:53 PM Resident Department of Family Medicine Electronically Reviewed/Signed by: Luz Jerez DO Cosigner Signature Dt/Tm: 12/11/2023 06:12 PM Department of Family Medicine AB Patient Care team information Care Team Personnel Name: MD Madonna, Sergio Jones Position: Referring Member Role: Primary Care Provider Address: Address: [facility] [address] [address]
== END 2023-12-16 17:05 | disposition home or self-care (01) | DRG 92 ==
LOC: ED 11:44 → 2N 11:44 → SUATTDRO 15:41 → 2N 17:54

== ENCOUNTER 2024-06-21 14:49 | Inpatient (IN) ==
--- NOTE | 2024-06-21 15:17 | Emergency Department Note ---
ED Provider Note NAME: IRVIN CERRATO AGE: 68 SEX: F : 1955 ARRIVES VIA: Ambulance INFORMANT: Patient, ED PROVIDER(S): Gorge Sahu MD CHIEF COMPLAINT: Possible SVT MEDICAL DECISION MAKING: Patient presents due to concerns for possible SVT based on an episode of racing heart and looking at her smart watch which showed a heart rate in the 180s. Patient also did reporting significant amount of salicylate. I did speak with the poison control recommends salicylate level and VBG in addition to electrolytes. This was ordered. Patient's blood work shows a normal white count hemoglobin 11 with a normal platelet count. The patient's kidney function is unremarkable. VBG pH is normal. Patient's initial troponin is elevated. No signs of obvious ischemia on EKG. Patient's initial salicylate level is not elevated. Per discussion with poison control they did recommend a repeat level. I did speak the on-call hospitalist after informing the patient the findings and the patient was admitted to the medicine service. I did discuss the patient's knee x-ray with Dr. Oseguera as there is some periprosthetic lucency. He had recommended the patient follow-up with her surgeon of record as an outpatient. He did not recommend any additional imaging at this time. Of note I did offer to perform arthrocentesis but the patient would prefer to be treated at this time. Patient did receive IV methylprednisolone. NSAIDs avoided given the patient's significant salicylate use. The patient does have warmth of the knee the patient does not have fever. Inflammatory markers were elevated but the patient does not have any redness noted. Also was noted the patient was taking aspirin with caffeine which may contribute to the elevated heart rate. Discussion w/ other healthcare providers: [place] poison control Dr. Oseguera orthopedics Dr. Rodriguez inpatient medicine service Prior /Outside records reviewed: None Differential diagnosis: Benign positional vertigo, dehydration, hypovolemia, anemia, infection, hypoglycemia, electrolyte abnormalities, arrhythmia, tox among others were considered. Diagnostics, as interpreted by me: ECG: Normal sinus rhythm, rate of 98, normal intervals, normal axis no ST elevations. No significant change for comparison February 12, 2024. Cardiac monitoring: An order was placed for continuous cardiac monitoring. The monitor shows a rate of 88 with sinus rhythm. Patient was placed on pulse oximetry Medical decision rules: None Imaging studies: I informally interpreted the patient's left knee x-ray shows effusion with formal report to follow. HPI: Patient is a 68 yo F w/ a PMHx of anastomotic ulcer, gastric ulcer/gastritis, IBS w/ constipation, scoliosis, spinal stenosis, migraines, depression, HTN, among other conditions presenting today after a sustained elevated heart of at least 181 (recorded by her smartwatch) accompanied by dizziness and nausea. Patient denies any CP, dyspnea, or wheezing. Patient does endorse recent night sweats, tactile fever (but no known temp). This is in the context of recurrent urinary symptoms of increased freq/urg, dysuria, suprapubic pressure for 4 weeks that occurred 4 weeks after previous Tx for an E. coli UTI; increased knee pain for ~ 2 weeks which required her to cancel her PT appts last week, begin using a walker instead of just a cane. Pt w/ a Hx of 2 TKR of left knee (2005, 2009 per pt); and increased epigastric pain, for which she already has an EGD scheduled for next Jun 28.Patient reportedly did receive 6 mg and 12 mg of adenosine which converted her to sinus tachycardia. Patient reportedly had SVT for EMS. PAST MEDICAL HISTORY: See Below PAST SURGICAL HISTORY: See Below SOCIAL HISTORY: See Below HOME MEDICATIONS: See Below ALLERGIES: See Below VITALS: See Below PHYSICAL EXAMINATION: GENERAL: NAD, non-toxic. EYE EXAM: Normal conjunctiva. PERRL, no anisocoria and EOM's grossly intact w/o pain. OROPHARYNX: Moist mucus membranes, grossly normal dentition. NECK: Trachea midline, no stridor. Supple, no nuchal rigidity, no adenopathy, non-tender. No signs of meningismus. FROM of the neck with good chin to chest and neck extension. LUNGS: Clear to auscultation. Normal chest wall mechanics. HEART: NSR, no MRG. ABDOMEN: Abdomen soft, non-tender, no masses, no rebound or guarding. BACK: No CVA TTP. SKIN: No rashes and no bruising. UPPER EXTREMITIES: Upper extremities are grossly normal. LOWER EXTREMITIES: Grossly normal, left knee swelling with warmth but no obvious erythema, pain with range of motion but compartments are soft and neurovascular intact distally. NEURO EXAM: A&O x3, cranial nerves II-XII grossly intact, normal speech, moves all 4 extremities. Past Med/Surg History Problem List (Updated 06/22/24 @ 11:01 by Candelario Goodson PA-C) Elevated erythrocyte sedimentation rate CRP elevated Anastomotic ulcer Depression Hypertension hx Chronic pain syndrome Painful total knee replacement, left Epigastric pain Acute encephalopathy Hypoxia Generalized pain Bilateral knee pain (Acute) Bilateral hip pain (Acute) Back pain (Acute) Rhabdomyolysis (Acute) Fall (Acute) Iron deficiency Acute alteration in mental status (Acute) Hypokalemia Painful total knee replacement Ulcer at site of surgical anastomosis following bypass of stomach Adenoma Red blood cell antibody positive, compatible PRBC difficult to obtain Vitamin D insufficiency Anxiety Osteoarthritis Neuropathy Chronic pain Anemia (Acute) Medical History Anastomotic ulcer Acute hypoxemic respiratory failure Altered mental status Gastric ulcer Left wrist fracture Left wrist pain Gastritis Medical marijuana use has not used several years Diarrhea Encounter for pre-operative examination Melena Acute hypotension Acute GI bleeding Hx MRSA infection dx [facility] years ago, "it was in her blood" Irritable bowel syndrome with constipation Hepatitis C hx - treated History of anesthesia reaction hx of waking up during procedures Bulging discs Scoliosis Spinal stenosis Glaucoma Attention deficit disorder (ADD) Migraine Depression Hypertension hx GI bleed admitted to [facility] 06/2022; no current problems Surgical History H/O gastric bypass History of partial hysterectomy History of bilateral breast reduction surgery History of bilateral tubal ligation Status post right foot surgery x7--hardware in place Status post left foot surgery x7-hardware in place History of open reduction and internal fixation (ORIF) procedure right ankle--hardware in place History of fusion of cervical spine C4-C5--normal ROM History of right shoulder replacement History of total right hip replacement History of total left knee replacement (TKR) x2 History of colonoscopy History of esophagogastroduodenoscopy (EGD) History of cholecystectomy History of appendectomy History of mandibular surgery 1978--wired shut History of tooth extraction History of wisdom tooth extraction History of eye surgery right---scar tissue from cataract sx History of bilateral cataract extraction History of cardiac cath 2005 @ [facility]---"fistula in heart between 2 valves"--no stents; no cardio, just PCP History of lung biopsy right side--benign Family History Mother Colorectal cancer Father Lung cancer Family history of esophageal cancer Brother Family history of esophageal cancer Grandfather (Maternal) Family history of esophageal cancer Other No family history of adverse response to anesthesia Social History (Updated 06/22/24 @ 05:42 by Bill Rodriguez MD) Smoking Status: Never smoker Second Hand Exposure: No; Do You Dip or Chew Tobacco: No; Hx Alcohol Use: No Hx Substance Use: No Preferred Language: Polish Communication Ability: Effective Land Economist Required: No Beliefs That Will Affect Care: None marital status: Single Current Living Situation: Alone Current Living Situation Comment: live in one story home with her two cats How many Children do You have: 1 Feels Safe at Home: Yes Assistive Devices: Cane and Walker Allergies Allergies Allergy/AdvReac Type Severity Reaction Status Date / Time aripiprazole [From Abilify] Allergy Severe Tremors Unverified 06/17/24 13:03 bee venom protein (honey bee) Allergy Severe Anaphylaxis Verified 06/17/24 13:03 sulfamethoxazole Allergy Unknown at age 20, Verified 06/17/24 13:03 can not remember what happened trimethoprim Allergy Unknown at age 20, Verified 06/17/24 13:03 can not remember what happened metoclopramide [From Reglan] Allergy Verified 06/17/24 13:11 lactose AdvReac Intermediate ice cream Verified 06/17/24 13:03 gives her diarrhea milk AdvReac Intermediate Diarrhea Verified 06/17/24 13:03 Home Meds Home Medications Medication Instructions Recorded Confirmed bupropion HCl 150 mg 24 hr tablet, 150 mg PO QAM 06/03/22 06/21/24 extended release (Wellbutrin XL) bupropion HCl 300 mg 24 hr tablet, 300 mg PO QAM 06/03/22 06/21/24 extended release (Wellbutrin XL) sumatriptan succinate 100 mg tablet 100 mg PO UD PRN Migraine Headache 06/03/22 06/21/24 aspirin 500 mg tablet,delayed 500 - 2,500 mg PO DAILY PRN Pain 09/24/23 06/21/24 release bismuth subsalicylate 262 mg 524 mg PO QID PRN .gi-upset 09/24/23 06/21/24 tablet (Pepto-Bismol) tafluprost (PF) 0.0015 % eye drops 2 drp OPB HS 09/24/23 06/21/24 in a dropperette timolol maleate 0.5 % eye drops 1 drp OPB QAM 09/24/23 06/21/24 epinephrine 0.3 mg/0.3 mL 0.3 mg IM DIRECTED PRN Allergic 11/29/23 06/21/24 injection, auto-injector (EpiPen) Reaction loperamide 2 mg capsule (Imodium 2 mg PO Q6H PRN Diarrhea 06/17/24 06/21/24 A-D) morphine 15 mg tablet,extended 15 mg PO UD 06/21/24 06/21/24 release Previous Rx's Medication Instructions Recorded gabapentin 600 mg tablet 900 mg (1.5 x 600 mg) PO BID #0 12/16/23 tabs pantoprazole 40 mg tablet,delayed 40 mg PO BID 90 days #180 tabs 06/08/24 release ondansetron 4 mg disintegrating 4 mg PO Q8H PRN nausea and 06/17/24 tablet vomiting #30 tabs cefuroxime axetil 500 mg tablet 500 mg PO BID #10 tabs 06/22/24 Results & Data (ED) Vital Signs Vital Signs - 24 hr 06/21/24 16:21 06/21/24 16:21 06/21/24 16:21 Temperature 36.7 C Temperature Source Oral Pulse Rate 88 Pulse Rate [Right Brachial] 88 Pulse Rhythm Regular Pulse Rhythm [Right Brachial] Pulse Strength Normal Pulse Strength [Right Brachial] Respiratory Rate 22 22 Respiratory Effort / Characteristics Non-Labored Non-Labored Respiratory Depth Normal Normal Respiratory Pattern Regular Blood Pressure 127/73 Blood Pressure [Right Arm] 127/73 Blood Pressure Mean 91 Blood Pressure Mean [Right Arm] 91 Blood Pressure Position Lying Blood Pressure Position [Right Arm] Pulse Oximetry 94 94 Oxygen Delivery Method Room Air Room Air Room Air Sepsis Recent Fever Within 48 Hours No Sepsis New/Unexplained Change in Mental Status N/A Sepsis Action Taken by Nursing No Action Required 06/21/24 16:21 06/21/24 16:32 06/21/24 18:00 Temperature Temperature Source Pulse Rate 89 Pulse Rate [Right Brachial] 85 Pulse Rhythm Pulse Rhythm [Right Brachial] Regular Pulse Strength Pulse Strength [Right Brachial] Normal Respiratory Rate 18 Respiratory Effort / Characteristics Non-Labored Respiratory Depth Normal Respiratory Pattern Regular Blood Pressure Blood Pressure [Right Arm] 136/82 Blood Pressure Mean Blood Pressure Mean [Right Arm] 100 Blood Pressure Position Blood Pressure Position [Right Arm] Lying Pulse Oximetry 94 94 Oxygen Delivery Method Room Air Room Air Sepsis Recent Fever Within 48 Hours Sepsis New/Unexplained Change in Mental Status Sepsis Action Taken by Long Term Medications Current Medication List: was personally reviewed by me Laboratory Data Attestation: I reviewed the patient's lab results. 06/21/24 16:16 06/22/24 05:38 Lab Results 06/21/24 06/21/24 06/21/24 Range/Units 16:16 17:14 17:24 WBC 5.34 (4.8-10.8) K/ul RBC 4.32 (4.20-5.40) M/uL Hgb 11.1 L (12.0-16.0) g/dl Hct 35.5 L (37.0-47.0) % MCV 82.2 (80.0-100.0) fL MCH 25.7 (25.0-34.0) pg MCHC 31.3 L (32.0-36.0) g/dL RDW Std Deviation 55.8 H (36.4-46.3) fL RDW Coeff of Faizan 18.6 H (11.5-14.5) % Plt Count 340 (130-400) K/uL MPV 8.6 L (9.4-12.4) fL Immature Gran % (Auto) 0.4 % Neut % (Auto) 54.4 % Lymph % (Auto) 31.5 % Boundary % (Auto) 10.5 % Eos % (Auto) 2.1 % Baso % (Auto) 1.1 % Neut # (Auto) 2.91 (1.40-6.50) K/uL Lymph # (Auto) 1.68 (1.20-3.40) K/uL Boundary # (Auto) 0.56 (0.11-0.59) K/uL Eos # (Auto) 0.11 (0.00-0.50) K/uL Baso # (Auto) 0.06 (0.00-0.20) K/uL Immature Gran # (Auto) 0.02 (0.01-0.20) K/uL ESR 47 H (0-30) mm/hr PT Cancelled 11.2 INR Cancelled 1.0 APTT Cancelled 31 PTT Ratio Cancelled 1.2 VBG pH 7.39 (7.36-7.41) VBG pCO2 50 (38-50) mmHg VBG pO2 23 mmHg VBG HCO3 30 mmol/L VBG O2 Saturation < 60.0 % VBG Base Excess 4.2 mEq/L Sodium 139 (136-145) mmol/L Potassium TNP 3.8 Chloride 105 (98-107) mmol/L Carbon Dioxide 28 (21-32) mmol/L Anion Gap 6 (3-11) BUN 10 (6-23) mg/dl Creatinine 0.48 L (0.6-1.2) mg/dl Est Cr Clr Drug Dosing 123.0 ml/min eGFR 103.75 BUN/Creatinine Ratio 20.8 H (10-20) Glucose 97 (70-99(Fasting)) mg/dl Calcium 9.1 (8.6-10.3) mg/dl Phosphorus 4.6 (2.5-4.9) mg/dl Magnesium 1.7 (1.7-2.4) mg/dl Total Bilirubin 0.4 (0.2-1.0) mg/dl AST TNP 19 ALT 10 (7-52) U/L Alkaline Phosphatase 69 (34-104) U/L Troponin I High Sens 102.2 H* 110.9 H* (0-14) pg/ml C-Reactive Protein 2.14 H (0-0.5) mg/dl Total Protein 6.8 (6.0-8.3) gm/dl Albumin 3.5 (3.4-5.0) gm/dl Globulin 3.3 (2.5-4.0) gm/dl Albumin/Globulin Ratio 1.1 (0.9-2) Lipase 9 L (11-82) U/L Urine Color Dark Yellow Urine Appearance Clear (Clear) Urine pH 5.5 (4.5-7.5) Ur Specific [place] 1.013 (1.000-1.030) Urine Protein Negative (Negative) Urine Glucose (UA) Negative (Negative) Urine Ketones Negative (Negative) Urine Blood Negative (Negative) Urine Nitrite Positive A (Negative) Urine Bilirubin 1+ H (Negative) Urine Urobilinogen Negative (Negative) Ur Leukocyte Esterase 1+ H (Negative) Urine WBC (Auto) 0-5 (0-5) /hpf Urine RBC (Auto) 0-2 (0-2) /hpf U Hyaline Cast (Auto) 0-2 (0-2) /lpf U Epithel Cells (Auto) 0-2 (0-2) /hpf Urine Bacteria (Auto) None Seen (None Seen) Calcium Oxalate Crystal Present A (None Prsent) Salicylates 11.2 (3.0-30) mg/dl Administered Medications Discontinued Medications Bupropion HCl (Bupropion Xl 300 Mg Tabcr) 300 mg PO QAM [facility] Stop: 07/22/24 08:59 Last Admin: 06/22/24 08:56 Dose: 300 mg Documented By: FELICIA Bupropion HCl (Bupropion Xl 150 Mg Tabcr) 150 mg PO QAM [facility] Stop: 07/22/24 08:59 Last Admin: 06/22/24 08:56 Dose: 150 mg Documented By: FELICIA Gabapentin (Gabapentin 300 Mg Cap) 900 mg PO BID TON Stop: 07/21/24 23:11 Last Admin: 06/22/24 08:56 Dose: 900 mg Documented By: Admin: 06/21/24 23:58 Dose: 900 mg Documented By: MONAE Ceftriaxone Sodium (Rocephin) 2,000 mg in 50 mls @ 100 mls/hr IV NOW STA Stop: 06/21/24 20:05 Last Infusion: 06/21/24 22:13 Dose: Infused Documented By: Admin: 06/21/24 21:20 Dose: 100 mls/hr Documented By: DOC Vancomycin HCl 2,000 mg/ (Sodium Chloride) 540 mls @ 200 mls/hr IV ONE ONE Stop: 06/21/24 22:41 Last Infusion: 06/22/24 00:36 Dose: Infused Documented By: Admin: 06/21/24 21:25 Dose: 200 mls/hr Documented By: DOC Vancomycin HCl 1,500 mg/ (Sodium Chloride) 530 mls @ 200 mls/hr IV Q12H TON Stop: 08/03/24 05:59 Last Infusion: 06/22/24 08:58 Dose: Infused Documented By: Admin: 06/22/24 05:49 Dose: 200 mls/hr Documented By: MONAE Lidocaine HCl (Lidocaine 2% Local 50 Ml Vial) Confirm Administered Dose 50 ml .ROUTE .STK-MED ONE Stop: 06/22/24 10:07 Last Admin: 06/22/24 10:18 Dose: 50 ml Documented By: FELICIA Methylprednisolone (Methylprednisolone 125 Mg/2 Ml Vial) 125 mg IV NOW STA Stop: 06/21/24 16:31 Last Admin: 06/21/24 17:17 Dose: 125 mg Documented By: ONEL Metoprolol Tartrate (Metoprolol Tartrate 25 Mg Tab) 25 mg PO BID TON Stop: 07/21/24 23:11 Last Admin: 06/22/24 08:57 Dose: 25 mg Documented By: Admin: 06/21/24 23:58 Dose: 25 mg Documented By: MONAE Miscellaneous (Order Awaiting Action: Tafluprost (Pf) 0.0015 % Dropperette) 1 each N/A QS TON Stop: 07/22/24 00:00 Last Admin: 06/22/24 08:56 Dose: Not Given Documented By: Admin: 06/22/24 00:36 Dose: Not Given Documented By: MONAE Morphine Sulfate (Morphine Sulfate 4 Mg/Ml 1 Ml Carp\\Vial) 4 mg IV NOW STA Stop: 06/21/24 16:32 Last Admin: 06/21/24 17:16 Dose: 4 mg Documented By: ONEL Morphine Sulfate (Morphine Sulfate 4 Mg/Ml 1 Ml Carp\\Vial) 4 mg IV NOW STA Stop: 06/21/24 21:13 Last Admin: 06/21/24 21:19 Dose: 4 mg Documented By: DOC Morphine Sulfate (Morphine Sulfate Cr 15 Mg Tabcr) 15 mg PO Q12H TON Stop: 07/05/24 23:11 Last Admin: 06/22/24 08:57 Dose: 15 mg Documented By: Admin: 06/21/24 23:57 Dose: 15 mg Documented By: MONAE Oxycodone HCl (Oxycodone Hcl Ir 5 Mg Tab (Immediate Release)) 10 mg PO Q4H PRN PRN Reason: Pain Stop: 07/05/24 23:11 Last Admin: 06/22/24 10:32 Dose: 10 mg Documented By: FELICIA Pantoprazole Sodium (Pantoprazole 40 Mg Tab) 40 mg PO BID TON Stop: 07/21/24 23:11 Last Admin: 06/22/24 08:57 Dose: 40 mg Documented By: Admin: 06/21/24 23:58 Dose: 40 mg Documented By: [facility] Timolol Maleate (Timolol Maleate 0.5% Op Soln 5 Ml Btl) 1 drops OP QAM TON Stop: 07/22/24 08:59 Last Admin: 06/22/24 08:58 Dose: 1 drops Documented By: FELICIA Imaging Data Radiologist's Impression: Chest X-Ray 06/21/24 14:55 INDICATION: Chest pain TECHNIQUE: Frontal radiograph of the chest. COMPARISON: Radiograph from 02/12/2024. FINDINGS: The cardiomediastinal silhouette and pulmonary vasculature appear within normal limits. No infiltrate, pleural effusion or pneumothorax. No acute osseous abnormality evident. Right shoulder prosthesis noted. IMPRESSION: No acute cardiopulmonary process. Electronically signed by Jorge Beaver 06-21-2024 4:18 PM Knee X-Ray 06/21/24 15:43 INDICATION: Knee pain. TECHNIQUE: 4 views of the left knee. COMPARISON: Radiograph from 12/13/2023. FINDINGS/IMPRESSION: Periprosthetic lucency along the inferior/medial margin of the femoral hardware internally for hardware loosening. Femoral anterior periprosthetic lucency seen on the lateral view appears similar to prior. Linear lucency through the distal/anterior femoral cortex similar to prior. Otherwise no acute fracture or dislocation. Small to moderate joint effusion. Soft tissue swelling. Electronically signed by Jorge Beaver 06-21-2024 4:18 PM Discharge Plan Visit Data Chief Complaint: Cardiac Assessment Stated Complaint: CARDIAC ASSESMEENT ED Provider: Gorge Sahu ED Midlevel Provider: Vic Carpenter Patient Disposition: Admitted As Inpatient Discharge Instructions Interventions: ED Discharge Assessment Last Done: 06/21/24 22:23
--- NOTE | 2024-06-21 16:18 | XRay Report ---
INDICATION: Chest pain TECHNIQUE: Frontal radiograph of the chest. COMPARISON: Radiograph from 02/12/2024. FINDINGS: The cardiomediastinal silhouette and pulmonary vasculature appear within normal limits. No infiltrate, pleural effusion or pneumothorax. No acute osseous abnormality evident. Right shoulder prosthesis noted. IMPRESSION: No acute cardiopulmonary process. Electronically signed by Jorge Beaver 06-21-2024 4:18 PM
--- NOTE | 2024-06-21 16:19 | XRay Report ---
INDICATION: Knee pain. TECHNIQUE: 4 views of the left knee. COMPARISON: Radiograph from 12/13/2023. FINDINGS/IMPRESSION: Periprosthetic lucency along the inferior/medial margin of the femoral hardware internally for hardware loosening. Femoral anterior periprosthetic lucency seen on the lateral view appears similar to prior. Linear lucency through the distal/anterior femoral cortex similar to prior. Otherwise no acute fracture or dislocation. Small to moderate joint effusion. Soft tissue swelling. Electronically signed by Jorge Beaver 06-21-2024 4:18 PM
[2024-06-21 16:46] LABS: Basophils # (auto) 0.06 K/uL (0.00-0.20); Basophils % (auto) 1.1 %; Eosinophils # (auto) 0.11 K/uL (0.00-0.50); Eosinophils % (auto) 2.1 %; Hematocrit (blood only) 35.5 % (37.0-47.0); Hemoglobin 11.1 g/dl (12.0-16.0); Immature Granulocytes # (auto) 0.02 K/uL (0.01-0.20); Immature Granulocytes % (auto) 0.4 %; Lymphocytes # (auto) 1.68 K/uL (1.20-3.40); Lymphocytes % (auto) 31.5 %; Mean Corpuscular Hemoglobin 25.7 pg (25.0-34.0); Mean Corpuscular Hgb Conc 31.3 g/dL (32.0-36.0); Mean Corpuscular Volume 82.2 fL (80.0-100.0); Mean Platelet Volume 8.6 fL (9.4-12.4); Monocytes # (auto) 0.56 K/uL (0.11-0.59); Monocytes % (auto) 10.5 %; Neutrophils # (auto) 2.91 K/uL (1.40-6.50); Neutrophils % (auto) 54.4 %; Platelet Count 340 K/uL (130-400); RDW Coefficient of Variation 18.6 % (11.5-14.5); RDW Standard Deviation 55.8 fL (36.4-46.3); Red Blood Count 4.32 M/uL (4.20-5.40); White Blood Count 5.34 K/ul (4.8-10.8)
--- NOTE | 2024-06-21 16:54 | Electrocardiogram Report ---
Test Reason : Blood Pressure : */* mmHG Vent. Rate : 98 BPM Atrial Rate : 98 BPM P-R Int : 162 ms QRS Dur : 78 ms QT Int : 310 ms P-R-T Axes : 51 2 50 degrees QTcB Int : 395 ms Normal sinus rhythm Normal ECG When compared with ECG of 12-Feb-2024 16:44, No significant change was found Confirmed by Vic Crain ([id number]) on 06/21/2024 4:54:07 PM Referred By: Confirmed By: Vic Crain
[2024-06-21 17:14] LABS: Alanine Aminotransferase 10 U/L (7-52); Albumin Globulin Ratio 1.1 (0.9-2); Albumin Level 3.5 gm/dl (3.4-5.0); Alkaline Phosphatase 69 U/L (34-104); Anion Gap 6 (3-11); BUN Creatinine Ratio 20.8 (10-20); Bilirubin,Total 0.4 mg/dl (0.2-1.0); Blood Urea Nitrogen 10 mg/dl (6-23); C Reactive Protein 2.14 mg/dl (0-0.5); Calcium 9.1 mg/dl (8.6-10.3); Carbon Dioxide 28 mmol/L (21-32); Chloride 105 mmol/L (98-107); Globulin 3.3 gm/dl (2.5-4.0); Glucose 97 mg/dl (70-99(Fasting)); Lipase 9 U/L (11-82); Magnesium 1.7 mg/dl (1.7-2.4); Phosphorus 4.6 mg/dl (2.5-4.9); Sodium 139 mmol/L (136-145); Total Protein 6.8 gm/dl (6.0-8.3); Troponin I High Sensitivity 102.2 pg/ml (0-14)
[2024-06-21] MEDS: MoRPHine SULFATE 4 MG/ML 1 ML CARP\\VIAL IV STA ×2 (17:16→21:19)
[2024-06-21] MEDS: methylPREDNISolone 125 MG/2 ML VIAL IV STA (17:17)
[2024-06-21 17:27] LABS: Base Excess VBG 4.2 mEq/L; HCO3 VBG 30 mmol/L; Oxygen Saturation VBG < 60.0 %; PCO2 VBG 50 mmHg (38-50); PO2 VBG 23 mmHg; pH VBG 7.39 (7.36-7.41)
[2024-06-21 17:46] LABS: Appearance Urine Clear (Clear); Bacteria Urine Automated None Seen (None Seen); Bilirubin Urine 1+ (Negative); Blood Urine Negative (Negative); Calcium Oxalate Crystals Urine Present (None Prsent); Cast Urine Automated 0-2 /lpf (0-2); Color Urine Dark Yellow; Epithelial Cell Urine Auto 0-2 /hpf (0-2); Glucose Urine UA Negative (Negative); Ketones Urine Negative (Negative); Leukocyte Esterase Urine 1+ (Negative); Nitrite Urine Positive (Negative); Protein Urine Negative (Negative); RBC Urine Automated 0-2 /hpf (0-2); Specific Gravity Urine 1.013 (1.000-1.030); Urobilinogen Urine Negative (Negative); WBC Urine Automated 0-5 /hpf (0-5); pH Urine 5.5 (4.5-7.5)
[2024-06-21 17:50] LABS: Potassium 3.8 mmol/L (3.5-5.1)
[2024-06-21 18:11] LABS: Partial Thromboplastin Ratio 1.2; Partial Thromboplastin Time 31 Seconds (21-31); Prothrombin Time 11.2 Seconds (9.0-12.0)
[2024-06-21] MEDS ORDERED: VANCOMYCIN CONSULT ACTIVE PRN (19:36)
--- NOTE | 2024-06-21 19:48 | History & Physical Report ---
Date of Service June 21, 2024 Assessment & Plan (1) SVT (supraventricular tachycardia): Plan: patient presented to [facility] with report of SVT per EMS. again I do not have an EKG or rhythm strips from EMS to verify the rhythm. she converted to sinus tach following 6mg and 12mg of adenosine. her report of the HR varying from 150s to 180s makes a.fib or variable block a.flutter more likely than AVNRT SVT. emergency room notes from 01/2024 do substantiate "SVT." since her tachyarrhythmia is not frequent she might be a candidate for a loop recorder as opposed to a 30-day event monitor or 14-day Holter. this may be a poor time to pursue loop recorder, however, given #[address] on telemetry. add metoprolol 25mg BID. check echo. consider cardiology evaluation while here. (2) Painful total knee replacement, left: Plan: the patient has had chronic discomfort related to her left TKR as documented in a 06/2023 outpatient ortho note by Dr Nikolay Posada. she presents with 2 weeks of severe left knee pain with swelling, warmth, and systemic symptoms (poor PO intake, hot/cold chills, etc). will send blood cultures and start IV rocephin 2gm daily + IV vanco to cover for the possibility of a septic left TKR. I sent correspondence to on-call orthopedics with my concerns and placed formal consult. Suspect she will need arthrocentesis. cont her usual MS-cont. allow oxycodone 10mg prn. (3) Neuropathy: Plan: cont her usual gabapentin 900m BID (4) Chronic pain syndrome: Plan: cont MS-Contin 15mg BID. for acute pain - oxy 10mg q4h prn. cont gabapentin. (5) Hypertension: Plan: listed on her problem list, but is not on any anti-hypertensive medication. adding metoprolol for #1 above, however. follow BPs. (6) Depression: Plan: cont wellbutrin (7) Anastomotic ulcer: Plan: history of cont PPI twice daily she was taking very large amounts of aspirin at home she should be counseled to avoid NSAIDs given her gastric bypass status & her prior ulcer ER providers checked salicylate levels and these were acceptable Plan DVT proph - defer on chemical means for now as she may need arthrocentesis of left knee History of Present Illness Chief Complaint: palpitations, left knee pain Primary Care Provider: NO PCP 68yo female with history of SVT in 01/2024 (did not require hospitalization), gastric bypass status, prior treated HepC infection, chronic pain syndrome on chronic narcotics (MS-contin BID), h/o anastomotic ulcer, migraines, mood disorder, and HTN presents from home via EMS due to concern for SVT and left knee pain. Patient reports that about 11am this morning she began to feel palpitations. She has a fit-bit watch and it noted her HR to be in the 150s. The heart rate gradually increased to as high as the 180s. The HR varied - it did not stay at a particular rate over the several hours of tachycardia. Due to the persistence of the tachycardia she finally called 911 about 1pm. While in the ambulance en route to [facility] she was told she was in SVT. She was given 6mg and 12mg of adenosine, respectively, for the reported SVT. This was successful as her HRs were low 100s by the time of arrival to [facility]. Unfortunately I do not have the EKG and/or rhythm strips obtained by EMS showing the reported SVT. By the time of my admission assessment the patient's HR was <100 and she was in NSR. In addition to the above the patient reports worsening left knee pain for about 2 weeks. She has chronic left knee pain but it has gotten to the point recently where she finds it difficult to weight bear, bend it, etc. The knee has been warm & swollen. During this 2-week time period she has been having hot/cold chills, having sweats at night, and her appetite has been poor. She was seen by Dr Nikolay Posada of orthopedics in 06/2023 for the knee. His records show that the knee was replaced in 2009, then revised in 2011. Dr Rahman was the orthopedist who performed the original surgery in 2009. Due to pain and swelling the ER today administered 125mg of IV solumedrol and also gave IV morphine. Allergies Allergy/AdvReac Type Severity Reaction Status Date / Time aripiprazole [From Abilify] Allergy Severe Tremors Unverified 06/17/24 13:03 bee venom protein (honey bee) Allergy Severe Anaphylaxis Verified 06/17/24 13:03 sulfamethoxazole Allergy Unknown at age 20, Verified 06/17/24 13:03 can not remember what happened trimethoprim Allergy Unknown at age 20, Verified 06/17/24 13:03 can not remember what happened metoclopramide [From Reglan] Allergy Verified 06/17/24 13:11 lactose AdvReac Intermediate ice cream Verified 06/17/24 13:03 gives her diarrhea milk AdvReac Intermediate Diarrhea Verified 06/17/24 13:03 Home Medications Medication Instructions Recorded Confirmed Type bupropion HCl 150 mg 24 hr tablet, 150 mg PO QAM 06/03/22 06/21/24 History extended release (Wellbutrin XL) bupropion HCl 300 mg 24 hr tablet, 300 mg PO QAM 06/03/22 06/21/24 History extended release (Wellbutrin XL) sumatriptan succinate 100 mg tablet 100 mg PO UD PRN Migraine Headache 06/03/22 06/21/24 History aspirin 500 mg tablet,delayed 500 - 2,500 mg PO DAILY PRN Pain 09/24/23 06/21/24 History release bismuth subsalicylate 262 mg 524 mg PO QID PRN .gi-upset 09/24/23 06/21/24 History tablet (Pepto-Bismol) tafluprost (PF) 0.0015 % eye drops 2 drp OPB HS 09/24/23 06/21/24 History in a dropperette timolol maleate 0.5 % eye drops 1 drp OPB QAM 09/24/23 06/21/24 History epinephrine 0.3 mg/0.3 mL 0.3 mg IM DIRECTED PRN Allergic 11/29/23 06/21/24 History injection, auto-injector (EpiPen) Reaction gabapentin 600 mg tablet 900 mg (1.5 x 600 mg) PO BID #0 12/16/23 06/21/24 Rx tabs pantoprazole 40 mg tablet,delayed 40 mg PO BID 90 days #180 tabs 06/08/24 06/21/24 Rx release loperamide 2 mg capsule (Imodium 2 mg PO Q6H PRN Diarrhea 06/17/24 06/21/24 History A-D) ondansetron 4 mg disintegrating 4 mg PO Q8H PRN nausea and 06/17/24 06/21/24 Rx tablet vomiting #30 tabs morphine 15 mg tablet,extended 15 mg PO UD 06/21/24 06/21/24 History release Past Med/Surg History Problem List (Updated 06/22/24 @ 05:57 by Bill Rodriguez MD) Anastomotic ulcer Depression Hypertension hx Chronic pain syndrome Painful total knee replacement, left Epigastric pain Acute encephalopathy Hypoxia Generalized pain Bilateral knee pain (Acute) Bilateral hip pain (Acute) Back pain (Acute) Rhabdomyolysis (Acute) Fall (Acute) Iron deficiency Acute alteration in mental status (Acute) Hypokalemia Painful total knee replacement Ulcer at site of surgical anastomosis following bypass of stomach Adenoma Red blood cell antibody positive, compatible PRBC difficult to obtain Vitamin D insufficiency Anxiety Osteoarthritis Neuropathy Chronic pain Anemia (Acute) Medical History Anastomotic ulcer Acute hypoxemic respiratory failure Altered mental status Gastric ulcer Left wrist fracture Left wrist pain Gastritis Medical marijuana use has not used several years Diarrhea Encounter for pre-operative examination Melena Acute hypotension Acute GI bleeding Hx MRSA infection dx [facility] years ago, "it was in her blood" Irritable bowel syndrome with constipation Hepatitis C hx - treated History of anesthesia reaction hx of waking up during procedures Bulging discs Scoliosis Spinal stenosis Glaucoma Attention deficit disorder (ADD) Migraine Depression Hypertension hx GI bleed admitted to [facility] 06/2022; no current problems Surgical History H/O gastric bypass History of partial hysterectomy History of bilateral breast reduction surgery History of bilateral tubal ligation Status post right foot surgery x7--hardware in place Status post left foot surgery x7-hardware in place History of open reduction and internal fixation (ORIF) procedure right ankle--hardware in place History of fusion of cervical spine C4-C5--normal ROM History of right shoulder replacement History of total right hip replacement History of total left knee replacement (TKR) x2 History of colonoscopy History of esophagogastroduodenoscopy (EGD) History of cholecystectomy History of appendectomy History of mandibular surgery 1978--wired shut History of tooth extraction History of wisdom tooth extraction History of eye surgery right---scar tissue from cataract sx History of bilateral cataract extraction History of cardiac cath 2005 @ [facility]---"fistula in heart between 2 valves"--no stents; no cardio, just PCP History of lung biopsy right side--benign Family History Mother Colorectal cancer Father Lung cancer Family history of esophageal cancer Brother Family history of esophageal cancer Grandfather (Maternal) Family history of esophageal cancer Other No family history of adverse response to anesthesia Social History (Updated 06/22/24 @ 05:42 by Bill Rodriguez MD) Smoking Status: Never smoker Second Hand Exposure: No; Do You Dip or Chew Tobacco: No; Hx Alcohol Use: No Hx Substance Use: No Preferred Language: Tanzanian Communication Ability: Effective Public Relations Player Required: No Beliefs That Will Affect Care: None marital status: Single Current Living Situation: Alone Current Living Situation Comment: live in one story home with her two cats How many Children do You have: 1 Feels Safe at Home: Yes Assistive Devices: Glasses and Walker Review of Systems Review of Systems: gen - no fevers, but has had sweats & chills x 2 weeks eyes - no visual changes HENT - no URI symptoms CV - no chest pain, but had palpitations earlier today when in SVT pulm - no dyspnea GI - no abd pain or vomiting - slight dysuria recently musculo - chronic right hip and acute/chronic left knee pain neuro - no headaches today endo - no diabetes skin - no rash Physical Exam Physical Exam: gen - sitting in chair, NAD, awake/alert eyes - PERRL, lens implaints b/l HENT - MMM, no lesions neck - no JVD, no thyroidmegaly heart - RRR, s1 s2, no murmur lungs - CTA b/l abd - soft NT ND BS+ ext - no peripheral edema, pulses 2+ b/l musculo - left knee - warm to touch, tender to palpation especially along the medial joint line; passive ROM causes pain; mild effusion present; TKR scar present; right knee with OA changes skin - no rash neuro - strength 5/5 x 4 exts psych - a/o x 3 Results & Data Results & Data Vital Signs (Past 12 Hours) Vital Signs Temp Pulse Pulse Resp BP BP Pulse Ox 06/21/24 18:00 85 18 136/82 94 06/21/24 16:32 89 06/21/24 16:21 94 06/21/24 16:21 88 22 127/73 94 06/21/24 16:21 06/21/24 16:21 36.7 C 88 22 127/73 94 O2 Del Method 06/21/24 18:00 Room Air 06/21/24 16:32 06/21/24 16:21 Room Air 06/21/24 16:21 Room Air 06/21/24 16:21 Room Air 06/21/24 16:21 Room Air Laboratory Results Laboratory Results - last 24 hr 06/21/24 06/21/24 06/21/24 16:16 17:14 17:24 WBC 5.34 RBC 4.32 Hgb 11.1 L Hct 35.5 L MCV 82.2 MCH 25.7 MCHC 31.3 L RDW Std Deviation 55.8 H RDW Coeff of Faizan 18.6 H Plt Count 340 MPV 8.6 L Immature Gran % (Auto) 0.4 Neut % (Auto) 54.4 Lymph % (Auto) 31.5 [place] % (Auto) 10.5 Eos % (Auto) 2.1 Baso % (Auto) 1.1 Neut # (Auto) 2.91 Lymph # (Auto) 1.68 [place] # (Auto) 0.56 Eos # (Auto) 0.11 Baso # (Auto) 0.06 Immature Gran # (Auto) 0.02 ESR 47 H PT Cancelled 11.2 INR Cancelled 1.0 APTT Cancelled 31 PTT Ratio Cancelled 1.2 VBG pH 7.39 VBG pCO2 50 VBG pO2 23 VBG HCO3 30 VBG O2 Saturation < 60.0 VBG Base Excess 4.2 Sodium 139 Potassium TNP 3.8 Chloride 105 Carbon Dioxide 28 Anion Gap 6 BUN 10 Creatinine 0.48 L Est Cr Clr Drug Dosing 123.0 eGFR 103.75 BUN/Creatinine Ratio 20.8 H Glucose 97 Calcium 9.1 Phosphorus 4.6 Magnesium 1.7 Total Bilirubin 0.4 AST TNP 19 ALT 10 Alkaline Phosphatase 69 Troponin I High Sens 102.2 H* 110.9 H* C-Reactive Protein 2.14 H Total Protein 6.8 Albumin 3.5 Globulin 3.3 Albumin/Globulin Ratio 1.1 Lipase 9 L Urine Color Dark Yellow Urine Appearance Clear Urine pH 5.5 Ur Specific [place] 1.013 Urine Protein Negative Urine Glucose (UA) Negative Urine Ketones Negative Urine Blood Negative Urine Nitrite Positive A Urine Bilirubin 1+ H Urine Urobilinogen Negative Ur Leukocyte Esterase 1+ H Urine WBC (Auto) 0-5 Urine RBC (Auto) 0-2 U Hyaline Cast (Auto) 0-2 U Epithel Cells (Auto) 0-2 Urine Bacteria (Auto) None Seen Calcium Oxalate Crystal Present A Salicylates 11.2 06/21/24 19:55 WBC RBC Hgb Hct MCV MCH MCHC RDW Std Deviation RDW Coeff of Faizan Plt Count MPV Immature Gran % (Auto) Neut % (Auto) Lymph % (Auto) [place] % (Auto) Eos % (Auto) Baso % (Auto) Neut # (Auto) Lymph # (Auto) [place] # (Auto) Eos # (Auto) Baso # (Auto) Immature Gran # (Auto) ESR PT INR APTT PTT Ratio VBG pH VBG pCO2 VBG pO2 VBG HCO3 VBG O2 Saturation VBG Base Excess Sodium Potassium Chloride Carbon Dioxide Anion Gap BUN Creatinine Est Cr Clr Drug Dosing eGFR BUN/Creatinine Ratio Glucose Calcium Phosphorus Magnesium Total Bilirubin AST ALT Alkaline Phosphatase Troponin I High Sens C-Reactive Protein Total Protein Albumin Globulin Albumin/Globulin Ratio Lipase Urine Color Urine Appearance Urine pH Ur Specific [place] Urine Protein Urine Glucose (UA) Urine Ketones Urine Blood Urine Nitrite Urine Bilirubin Urine Urobilinogen Ur Leukocyte Esterase Urine WBC (Auto) Urine RBC (Auto) U Hyaline Cast (Auto) U Epithel Cells (Auto) Urine Bacteria (Auto) Calcium Oxalate Crystal Salicylates 8.4 Diagnostic Findings Chest X-Ray 06/21/24 14:55 INDICATION: Chest pain TECHNIQUE: Frontal radiograph of the chest. COMPARISON: Radiograph from 02/12/2024. FINDINGS: The cardiomediastinal silhouette and pulmonary vasculature appear within normal limits. No infiltrate, pleural effusion or pneumothorax. No acute osseous abnormality evident. Right shoulder prosthesis noted. IMPRESSION: No acute cardiopulmonary process. Electronically signed by Jorge Beaver 06-21-2024 4:18 PM Knee X-Ray 06/21/24 15:43 INDICATION: Knee pain. TECHNIQUE: 4 views of the left knee. COMPARISON: Radiograph from 12/13/2023. FINDINGS/IMPRESSION: Periprosthetic lucency along the inferior/medial margin of the femoral hardware internally for hardware loosening. Femoral anterior periprosthetic lucency seen on the lateral view appears similar to prior. Linear lucency through the distal/anterior femoral cortex similar to prior. Otherwise no acute fracture or dislocation. Small to moderate joint effusion. Soft tissue swelling. Electronically signed by Jorge Beaver 06-21-2024 4:18 PM Code Status & VTE Plan Code Status DNR/DNI PG Care Time/CCT Total # of Minutes Spent Total Time Spent with Patient: Total time spent is greater than 50% in coordination of care (as documented) at patient's floor/unit and/or counseling patient: Coding Level of Care Code 29842 INT INP/OBS CARE 3/75MIN Diagnoses SVT (supraventricular tachycardia) I47.10 Painful total knee replacement, left T84.84XA; Z96.652 Neuropathy G62.9 Chronic pain syndrome G89.4 Essential hypertension I10 Hypertension type: essential hypertension Depression F32.9 Anastomotic ulcer K28.9 (5) Hypertension Hypertension type: essential hypertension Qualified Code(s): I10 - Essential (primary) hypertension
[2024-06-21] MEDS: cefTRIAXone SODIUM 2,000 MG/50 ML BAG IV STA (21:20)
[2024-06-21] MEDS: VANCOMYCIN HCL 2,000 MG in SODIUM CHLORIDE 0.9% 500 ML IV ONE (21:25)
[2024-06-21 22:24] VITALS: RESP 18
[2024-06-21] MEDS ORDERED: EPINEPHrine ADULT AUTO-INJECT 0.3 MG SYR IM PRN (23:12)
[2024-06-21] MEDS ORDERED: SUMAtriptan succinate 100 MG TAB PO PRN (23:12)
[2024-06-21] MEDS ORDERED: LOPERAMIDE HCL 2 MG CAP PO PRN (23:12)
[2024-06-21] MEDS ORDERED: ONDANSETRON INJ 2 MG/ML 2 ML VIAL IV PRN (23:12)
[2024-06-21] MEDS ORDERED: PNEUMOCOCCAL VACCINE (PCV20) 20-VAL CONJ-DIP CRM/PF 0.5 ML SYR IM ONE (23:30)
[2024-06-21] MEDS: MoRPHine SULFATE CR 15 MG TABCR PO SCH (23:57)
[2024-06-21] MEDS: PANTOprazole 40 MG TAB PO SCH (23:58)
[2024-06-21] MEDS: METOPROLOL TARTRATE 25 MG TAB PO SCH (23:58)
[2024-06-21] MEDS: GABAPENTIN 300 MG CAP PO SCH (23:58)
[2024-06-22 03:22] VITALS: O2SAT 95
[2024-06-22] MEDS: VANCOMYCIN HCL 1,500 MG in SODIUM CHLORIDE 0.9% 500 ML IV SCH (05:49)
[2024-06-22] MEDS ORDERED: EPINEPHrine INJ 1 MG/ML AMP IM PRN (06:00)
[2024-06-22 06:12] LABS: BUN Creatinine Ratio 24.4 (10-20); Calcium 9.3 mg/dl (8.6-10.3); Creatinine Clr Calc Pharmacy 145.4 ml/min; Potassium 3.9 mmol/L (3.5-5.1)
[2024-06-22 08:06] VITALS: BP 137/68; PULSE 69; TEMP 97.7
[2024-06-22] MEDS: buPROPion XL 300 MG TABCR PO SCH (08:56)
[2024-06-22] MEDS: buPROPion XL 150 MG TABCR PO SCH (08:56)
[2024-06-22] MEDS: TIMOLOL MALEATE 0.5% OP SOLN 5 ML BTL OP SCH (08:58)
--- NOTE | 2024-06-22 10:05 | XCELERA ---
[id number] [id number]
[2024-06-22] MEDS: LIDOCAINE 2% LOCAL 50 ML VIAL ONE (10:18)
--- NOTE | 2024-06-22 10:23 | Cardiology Consultation ---
Date of Consultation June 22, 2024 Assessment & Plan (1) SVT (supraventricular tachycardia): Plan 1. 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 However, we are handicapped by the absence of recordings. There is no recording in her record of an SVT treated in January of this year in our emergency room. There were also no recordings from the ENT evaluation last evening. In both circumstances it was reported to be a narrow complex tachycardia. She has a structurally normal heart and no other symptoms of cardiac disease. 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 Atrial fibrillation or flutter could not be definitively excluded, but they should not respond to adenosine as described. We discussed options moving forward. Since she has only had 2 episodes total and has tolerated them very well she is more interested and simply monitoring for recurrence. I believe this is reasonable. We did discuss different vagal maneuvers to try at home for termination. I also described the option of medication to limit recurrences and catheter-based therapy to limit the tachycardia altogether. She can follow-up in the clinic in 6 months to review any additional symptoms and discuss her options again. History of Present Illness Reason for Consultation: The patient is a 68-year-old woman with a history of SVT who presented to the hospital with SVT. It seems that yesterday she was feeling somewhat poorly. Lately she has been feeling unwell in general and having more left knee discomfort. She does have a watch at home that monitors her heart rate. She noticed yesterday afternoon and a slight increase in the heart rate. The heart rate gradually increased throughout the course of the day and despite her efforts to relax, do deep breathing and massage her neck the tachycardia persisted. She had some associated dizziness and perhaps mild dyspnea. No severe symptoms. By report she was administered adenosine en route to the hospital and her tachycardia improved. She reports 1 similar episode in January 2024. Again, she noticed an elevated heart rate on her watch. Some sense of palpitation. She waited a couple of hours without resolution and presented to the emergency room where she was given adenosine. By report this terminated her arrhythmia. She did not report any additional episodes. Generally not aware of palpitations. Lately her activity has been limited by worsening left knee discomfort. She generally ambulates with a cane but more recently has been using a walker. She has some mild dyspnea at times but this does not appear to be limiting. Generally speaking no dizziness or lightheadedness. She did not report fevers or chills recently but as noted above has been feeling unwell. She felt that she may have another urinary tract infection. Perhaps some mild pelvic discomfort. Attending Physician: Refugio Stephenson Allergies Allergy/AdvReac Type Severity Reaction Status Date / Time aripiprazole [From Abilify] Allergy Severe Tremors Unverified 06/17/24 13:03 bee venom protein (honey bee) Allergy Severe Anaphylaxis Verified 06/17/24 13:03 sulfamethoxazole Allergy Unknown at age 20, Verified 06/17/24 13:03 can not remember what happened trimethoprim Allergy Unknown at age 20, Verified 06/17/24 13:03 can not remember what happened metoclopramide [From Reglan] Allergy Verified 06/17/24 13:11 lactose AdvReac Intermediate ice cream Verified 06/17/24 13:03 gives her diarrhea milk AdvReac Intermediate Diarrhea Verified 06/17/24 13:03 Home Medications Medication Instructions Recorded Confirmed Type bupropion HCl 150 mg 24 hr tablet, 150 mg PO QAM 06/03/22 06/21/24 History extended release (Wellbutrin XL) bupropion HCl 300 mg 24 hr tablet, 300 mg PO QAM 06/03/22 06/21/24 History extended release (Wellbutrin XL) sumatriptan succinate 100 mg tablet 100 mg PO UD PRN Migraine Headache 06/03/22 06/21/24 History aspirin 500 mg tablet,delayed 500 - 2,500 mg PO DAILY PRN Pain 09/24/23 06/21/24 History release bismuth subsalicylate 262 mg 524 mg PO QID PRN .gi-upset 09/24/23 06/21/24 History tablet (Pepto-Bismol) tafluprost (PF) 0.0015 % eye drops 2 drp OPB HS 09/24/23 06/21/24 History in a dropperette timolol maleate 0.5 % eye drops 1 drp OPB QAM 09/24/23 06/21/24 History epinephrine 0.3 mg/0.3 mL 0.3 mg IM DIRECTED PRN Allergic 11/29/23 06/21/24 History injection, auto-injector (EpiPen) Reaction gabapentin 600 mg tablet 900 mg (1.5 x 600 mg) PO BID #0 12/16/23 06/21/24 Rx tabs pantoprazole 40 mg tablet,delayed 40 mg PO BID 90 days #180 tabs 06/08/24 06/21/24 Rx release loperamide 2 mg capsule (Imodium 2 mg PO Q6H PRN Diarrhea 06/17/24 06/21/24 History A-D) ondansetron 4 mg disintegrating 4 mg PO Q8H PRN nausea and 06/17/24 06/21/24 Rx tablet vomiting #30 tabs morphine 15 mg tablet,extended 15 mg PO UD 06/21/24 06/21/24 History release Patient History Medical History Anastomotic ulcer Acute hypoxemic respiratory failure Altered mental status Gastric ulcer Left wrist fracture Left wrist pain Gastritis Medical marijuana use has not used several years Diarrhea Encounter for pre-operative examination Melena Acute hypotension Acute GI bleeding Hx MRSA infection dx [facility] years ago, "it was in her blood" Irritable bowel syndrome with constipation Hepatitis C hx - treated History of anesthesia reaction hx of waking up during procedures Bulging discs Scoliosis Spinal stenosis Glaucoma Attention deficit disorder (ADD) Migraine Depression Hypertension hx GI bleed admitted to [facility] 06/2022; no current problems Surgical History H/O gastric bypass History of partial hysterectomy History of bilateral breast reduction surgery History of bilateral tubal ligation Status post right foot surgery x7--hardware in place Status post left foot surgery x7-hardware in place History of open reduction and internal fixation (ORIF) procedure right ankle--hardware in place History of fusion of cervical spine C4-C5--normal ROM History of right shoulder replacement History of total right hip replacement History of total left knee replacement (TKR) x2 History of colonoscopy History of esophagogastroduodenoscopy (EGD) History of cholecystectomy History of appendectomy History of mandibular surgery 1978--wired shut History of tooth extraction History of wisdom tooth extraction History of eye surgery right---scar tissue from cataract sx History of bilateral cataract extraction History of cardiac cath 2005 @ [facility]---"fistula in heart between 2 valves"--no stents; no cardio, just PCP History of lung biopsy right side--benign Family History Mother Colorectal cancer Father Lung cancer Family history of esophageal cancer Brother Family history of esophageal cancer Grandfather (Maternal) Family history of esophageal cancer Other No family history of adverse response to anesthesia Social History (Updated 06/22/24 @ 05:42 by Bill Rodriguez MD) Smoking Status: Never smoker Second Hand Exposure: No; Do You Dip or Chew Tobacco: No; Hx Alcohol Use: No Hx Substance Use: No Preferred Language: Chadian Communication Ability: Effective Machinery Erector Required: No Beliefs That Will Affect Care: None marital status: Single Current Living Situation: Alone Current Living Situation Comment: live in one story home with her two cats How many Children do You have: 1 Feels Safe at Home: Yes Safety Concerns: Feels Safe At This Time Assistive Devices: Glasses and Walker Review of Systems Review of Systems: Per HPI. Patient does report a history of a cardiac evaluation. She was leaves this was as long as 20 years ago. She was told at that time that she had a "fistula". She was instructed to take antibiotic prophylaxis for dental procedures. Her evaluation seem to involve a cardiac catheterization, outpatient monitoring and an echocardiogram. No other diagnoses by her report. Physical Exam Physical Exam: She is alert and oriented x3. Mood affect appear normal. She answered all questions appropriately. HEENT: Sclerae are anicteric. Pupils are equal and reactive to light and accommodation. Extraocular movements were intact. Neuro: Cranial nerves intact Neck: Left sided scar. Lungs: Lungs are clear to auscultation bilaterally. There are no rales wheezes or rhonchi. She has normal respiratory effort without use of accessory muscles. There is normal pulmonary excursion. Cardiac: The rhythm was regular. S1 and S2 were normal. Systolic murmur. The PMI was not markedly displaced on palpation. Extremities: Patient has bilateral radial pulses that are equal in intensity. There is no evidence cyanosis or clubbing. There was no evidence of significant peripheral edema bilaterally. Left knee is somewhat warm to the touch, but patient overall is slightly warm. No erythema or tenderness to palpation. Skin: There are no rashes noted on examination today. Results & Data Vital Signs (Past 12 Hours) Vital Signs Temp Pulse Pulse Resp BP Pulse Ox O2 Del Method 06/22/24 08:06 36.5 C 69 18 137/68 95 Room Air 06/22/24 02:38 36.7 C 63 18 149/83 H 95 Room Air 06/21/24 23:14 76 06/21/24 23:14 36.6 C 79 18 150/66 H 96 Room Air 06/21/24 22:21 91 H 18 Laboratory Results Abnormal Lab Results 06/21/24 06/21/24 06/21/24 16:16 17:14 17:24 WBC 5.34 RBC 4.32 Hgb 11.1 L Hct 35.5 L MCV 82.2 MCH 25.7 MCHC 31.3 L RDW Std Deviation 55.8 H RDW Coeff of Faizan 18.6 H Plt Count 340 MPV 8.6 L Immature Gran % (Auto) 0.4 Neut % (Auto) 54.4 Lymph % (Auto) 31.5 Donley % (Auto) 10.5 Eos % (Auto) 2.1 Baso % (Auto) 1.1 Neut # (Auto) 2.91 Lymph # (Auto) 1.68 Donley # (Auto) 0.56 Eos # (Auto) 0.11 Baso # (Auto) 0.06 Immature Gran # (Auto) 0.02 ESR 47 H PT Cancelled 11.2 INR Cancelled 1.0 APTT Cancelled 31 PTT Ratio Cancelled 1.2 VBG pH 7.39 VBG pCO2 50 VBG pO2 23 VBG HCO3 30 VBG O2 Saturation < 60.0 VBG Base Excess 4.2 Sodium 139 Potassium TNP 3.8 Chloride 105 Carbon Dioxide 28 Anion Gap 6 BUN 10 Creatinine 0.48 L Est Cr Clr Drug Dosing 123.0 eGFR 103.75 BUN/Creatinine Ratio 20.8 H Glucose 97 Calcium 9.1 Phosphorus 4.6 Magnesium 1.7 Total Bilirubin 0.4 AST TNP 19 ALT 10 Alkaline Phosphatase 69 Troponin I High Sens 102.2 H* 110.9 H* C-Reactive Protein 2.14 H Total Protein 6.8 Albumin 3.5 Globulin 3.3 Albumin/Globulin Ratio 1.1 Lipase 9 L Urine Color Dark Yellow Urine Appearance Clear Urine pH 5.5 Ur Specific [place] 1.013 Urine Protein Negative Urine Glucose (UA) Negative Urine Ketones Negative Urine Blood Negative Urine Nitrite Positive A Urine Bilirubin 1+ H Urine Urobilinogen Negative Ur Leukocyte Esterase 1+ H Urine WBC (Auto) 0-5 Urine RBC (Auto) 0-2 U Hyaline Cast (Auto) 0-2 U Epithel Cells (Auto) 0-2 Urine Bacteria (Auto) None Seen Calcium Oxalate Crystal Present A Salicylates 11.2 06/21/24 06/22/24 19:55 05:38 WBC RBC Hgb Hct MCV MCH MCHC RDW Std Deviation RDW Coeff of Faizan Plt Count MPV Immature Gran % (Auto) Neut % (Auto) Lymph % (Auto) Donley % (Auto) Eos % (Auto) Baso % (Auto) Neut # (Auto) Lymph # (Auto) Donley # (Auto) Eos # (Auto) Baso # (Auto) Immature Gran # (Auto) ESR PT INR APTT PTT Ratio VBG pH VBG pCO2 VBG pO2 VBG HCO3 VBG O2 Saturation VBG Base Excess Sodium 138 Potassium 3.9 Chloride 105 Carbon Dioxide 26 Anion Gap 7 BUN 10 Creatinine 0.41 L Est Cr Clr Drug Dosing 145.4 eGFR 107.77 BUN/Creatinine Ratio 24.4 H Glucose 175 H Calcium 9.3 Phosphorus Magnesium Total Bilirubin AST ALT Alkaline Phosphatase Troponin I High Sens C-Reactive Protein Total Protein Albumin Globulin Albumin/Globulin Ratio Lipase Urine Color Urine Appearance Urine pH Ur Specific [place] Urine Protein Urine Glucose (UA) Urine Ketones Urine Blood Urine Nitrite Urine Bilirubin Urine Urobilinogen Ur Leukocyte Esterase Urine WBC (Auto) Urine RBC (Auto) U Hyaline Cast (Auto) U Epithel Cells (Auto) Urine Bacteria (Auto) Calcium Oxalate Crystal Salicylates 8.4 Diagnostic Findings Echocardiogram 06/22/2024: Preserved LV systolic function with ejection fraction of 60 to 65%. Mild LVH. Stage I diastolic dysfunction. Mild left atrial dilation. ECG Additional Comments: EKG at the time admission revealed normal sinus rhythm. Normal EKG. PG Care Time/CCT Total # of Minutes Spent Total Time Spent with Patient: Total time spent is greater than 50% in coordination of care (as documented) at patient's floor/unit and/or counseling patient: Coding Level of Care Code 55927 INT INP/OBS CARE 3/75MIN Diagnoses SVT (supraventricular tachycardia) I47.10
[2024-06-22] MEDS: oxyCODONE HCL IR 5 MG TAB (IMMEDIATE RELEASE) PO PRN (10:32)
--- NOTE | 2024-06-22 10:49 | Pharmacy Report ---
Pharmacy PK ABX Note - Date of Service June 22, 2024 - Assessment and Plan Assessment 68 year old F receiving vancomycin and ceftriaxone for treatment of possible septic left knee s/p total knee replacement last year. Blood cultures pending. Orthopedics consulted. Renal function stable. Day #2 of antimicrobial therapy. Plan Vancomycin * Loading dose: 2000 mg IV x 1 * Maintenance dose: 1500 mg IV every 12 hours * Regimen is predicted to achieve target AUC/LESA of 400-600 mg/L.hr * Will obtain a level if therapy continued beyond 48h, or sooner if clinically indicated. Pharmacy will continue to follow and will adjust dose/frequency as necessary. Thank you. Pharmacy has transitioned to AUC monitoring for vancomycin. AUC/LESA is the preferred PK/PD target and is associated with decreased risk of nephrotoxicity compared to traditional trough targets.
--- NOTE | 2024-06-22 11:08 | Orthopedic Consultation ---
Date of Consultation June 22, 2024 Assessment & Plan (1) Painful total knee replacement, left: (2) CRP elevated: (3) Elevated erythrocyte sedimentation rate: Plan LEFT KNEE ASPIRATION Diagnosis: Left knee pain s/p revision L TKA 2011 by REFUGIO Lindsey Performed by: Candelario Goodson PA-C Side: Left Anesthesia: local -- 10 cc 2% lidocaine Material forwarded to lab: none Prior to starting, the potential diagnosis and the procedure were reviewed with the patient in detail. Possible risks, complications and alternative therapies were also reviewed. All questions were answered. Informed consent was obtained. Allergies and medication list was reviewed. The anterolateral knee surrounding tissues were prepped with a prep consisting of Betadine swab x3 and ChloraPrep pad x2. Sterile technique was maintained throughout the procedure. Ethyl chloride spray was not available for topical anesthetic purposes. After cleansing the skin, a 1.5 inch 22-gauge needle upon a 10 cc syringe was utilized for local anesthetic purposes, and the needle was advanced into the anterolateral left knee, infiltrating the skin and subcutaneous tissues with 2% lidocaine, then advancing into the synovium for further anesthetic purposes. A total of 10 cc of 2% lidocaine was injected for local anesthesia. This was allowed to set up for approximately 5 to 10 minutes. The patient requested some pain medicine, which was administered by the bedside nurse. Next, a 1 inch 18-gauge needle upon 20 cc syringe was advanced into the suprapatellar pouch, with attempt at aspiration. Approximately 5 cc of blood was obtained. There was no appearance of any purulence or cloudy synovial or bloody fluid. Patient tolerated the procedure well with no complications. Adequate hemostasis was achieved. A sterile Band-Aid, along with a pressure dressing of folded 2x2 gauze and silk tape, was applied at the aspiration site. Patient was monitored for a brief period afterwards. Any specific questions were answered. Patient voiced understanding of the instructions. Educated patient that since minimal blood was obtained, and seemingly no synovial fluid, that it may be difficult to achieve any accurate lab results, if the laboratory is able to even run the tests. However, we will attempt to check for aerobic/anaerobic culture and Gram stain, as well as cell count and crystals. Currently, very low suspicion for septic knee joint. Suspect that elevated ESR and CRP may be relative to recently elevated troponin I cardiac enzyme, as well as potentially and/or findings on urinalysis indicative of UTI. Ultimately, it was discussed with the patient that Dr. Posada's recommendation would be to follow-up with a tertiary care center, such as [facility], due to her multiple left knee operations, with a resultant revision left total knee arthroplasty in 2011, which she says has been bothersome to her to a degree ever since the second operation. We briefly discussed that they may want to consider doing a Synovasure analysis. --------- The patient was seen and examined by myself Nikolay Posada. Agree with above. Structurally from a radiographic as well as clinical standpoint she is got loosening of this knee replacement. Clinically it does not appear infected although that is always a concern particularly with a an elevated sed rate and CRP. The knee has been aspirated and sent for analysis and will follow-up with those results. Regardless as she is going need to have follow-up at a tertiary care center as this is going to require revision surgery. I discussed with this with her in detail and that she likely like to go to [facility]. Obviously, the most important thing right now is to get her cardiac situation straightened out. She can weight-bear as tolerated. Would recommend she follow-up with [facility] for further management of her right knee replacement. Any orthopedic questions can direct me [phone]. History of Present Illness Attending Physician: Refugio Stephenson History of Present Illness 06/21/24 ED provider note: "HPI: Patient is a 68 yo F w/ a PMHx of anastomotic ulcer, gastric ulcer/gastritis, IBS w/ constipation, scoliosis, spinal stenosis, migraines, depression, HTN, among other conditions presenting today after a sustained elevated heart of at least 181 (recorded by her smartwatch) accompanied by dizziness and nausea. Patient denies any CP, dyspnea, or wheezing. Patient does endorse recent night sweats, tactile fever (but no known temp). This is in the context of recurrent urinary symptoms of increased freq/urg, dysuria, suprapubic pressure for 4 weeks that occurred 4 weeks after previous Tx for an E. coli UTI; increased knee pain for ~ 2 weeks which required her to cancel her PT appts last week, begin using a walker instead of just a cane. Pt w/ a Hx of 2 TKR of left knee (2005, 2009 per pt); and increased epigastric pain, for which she already has an EGD scheduled for next Jun 28." 06/21/24 attending note: (2) Painful total knee replacement, left: Plan: the patient has had chronic discomfort related to her left TKR as documented in a 06/2023 outpatient orth[address] note by Dr Nikolay Posada. she presents with 2 weeks of severe left knee pain with swelling, warmth, and systemic symptoms (poor PO intake, hot/cold chills, etc). will send blood cultures and start IV rocephin 2gm daily + IV vanco to cover for the possibility of a septic left TKR. I sent correspondence to on-call orthopedics with my concerns and placed formal consult. Suspect she will need arthrocentesis. cont her usual MS-cont. allow oxycodone 10mg prn. ------- [facility] physician group orthopedics was consulted for further management, as the patient has a history of having seen Dr. Posada back in June 2023. At that time, she was being seen pertaining to her left knee, which was noted to have undergone a revision left total knee arthroplasty done at [facility] in [place], [place] in 2011, with the original surgery being in 2009. She apparently did do fairly well postoperatively and denied any history of infection. She states an injury in early June of last year prior to being seen in the orthopedics clinic, wherein she noted a popping in the knee when she went to straighten out the knee while in bed. She did have some labs drawn back then, to include an ESR and CRP. She did have elevation of both about 1 year ago; results show ESR of 51 in June 2023 and 47 done just yesterday, with CRP of 8.80 in June 2023, and 2.14 yesterday. So, it does seem that these inflammatory markers have actually gone down since last year. Today, the patient notes that she has been dealing with pain to the left knee for quite some time. She says that it can be stiff at times, but then seem to function more normally at other times. She has noticed this stiffness and pain more recently over the past couple of months or more. She says that the knee was not the reason for her coming to the emergency department yesterday, but that it has just been bothering her. X-rays were taken and reported to demonstrate a lucency at the bone/cement/implant interface at the anterior aspect of the distal femur and femoral component. It is noted that this appeared similar to radiographs done prior. Allergies Allergy/AdvReac Type Severity Reaction Status Date / Time aripiprazole [From Abilify] Allergy Severe Tremors Unverified 06/17/24 13:03 bee venom protein (honey bee) Allergy Severe Anaphylaxis Verified 06/17/24 13:03 sulfamethoxazole Allergy Unknown at age 20, Verified 06/17/24 13:03 can not remember what happened trimethoprim Allergy Unknown at age 20, Verified 06/17/24 13:03 can not remember what happened metoclopramide [From Reglan] Allergy Verified 06/17/24 13:11 lactose AdvReac Intermediate ice cream Verified 06/17/24 13:03 gives her diarrhea milk AdvReac Intermediate Diarrhea Verified 06/17/24 13:03 Home Medications Medication Instructions Recorded Confirmed Type bupropion HCl 150 mg 24 hr tablet, 150 mg PO QAM 06/03/22 06/21/24 History extended release (Wellbutrin XL) bupropion HCl 300 mg 24 hr tablet, 300 mg PO QAM 06/03/22 06/21/24 History extended release (Wellbutrin XL) sumatriptan succinate 100 mg tablet 100 mg PO UD PRN Migraine Headache 06/03/22 06/21/24 History aspirin 500 mg tablet,delayed 500 - 2,500 mg PO DAILY PRN Pain 09/24/23 06/21/24 History release bismuth subsalicylate 262 mg 524 mg PO QID PRN .gi-upset 09/24/23 06/21/24 History tablet (Pepto-Bismol) tafluprost (PF) 0.0015 % eye drops 2 drp OPB HS 09/24/23 06/21/24 History in a dropperette timolol maleate 0.5 % eye drops 1 drp OPB QAM 09/24/23 06/21/24 History epinephrine 0.3 mg/0.3 mL 0.3 mg IM DIRECTED PRN Allergic 11/29/23 06/21/24 History injection, auto-injector (EpiPen) Reaction gabapentin 600 mg tablet 900 mg (1.5 x 600 mg) PO BID #0 12/16/23 06/21/24 Rx tabs pantoprazole 40 mg tablet,delayed 40 mg PO BID 90 days #180 tabs 06/08/24 06/21/24 Rx release loperamide 2 mg capsule (Imodium 2 mg PO Q6H PRN Diarrhea 06/17/24 06/21/24 History A-D) ondansetron 4 mg disintegrating 4 mg PO Q8H PRN nausea and 06/17/24 06/21/24 Rx tablet vomiting #30 tabs morphine 15 mg tablet,extended 15 mg PO UD 06/21/24 06/21/24 History release cefuroxime axetil 500 mg tablet 500 mg PO BID #10 tabs 06/22/24 Rx Patient History Medical History Anastomotic ulcer Acute hypoxemic respiratory failure Altered mental status Gastric ulcer Left wrist fracture Left wrist pain Gastritis Medical marijuana use has not used several years Diarrhea Encounter for pre-operative examination Melena Acute hypotension Acute GI bleeding Hx MRSA infection dx [facility] years ago, "it was in her blood" Irritable bowel syndrome with constipation Hepatitis C hx - treated History of anesthesia reaction hx of waking up during procedures Bulging discs Scoliosis Spinal stenosis Glaucoma Attention deficit disorder (ADD) Migraine Depression Hypertension hx GI bleed admitted to [facility] 06/2022; no current problems Surgical History H/O gastric bypass History of partial hysterectomy History of bilateral breast reduction surgery History of bilateral tubal ligation Status post right foot surgery x7--hardware in place Status post left foot surgery x7-hardware in place History of open reduction and internal fixation (ORIF) procedure right ankle--hardware in place History of fusion of cervical spine C4-C5--normal ROM History of right shoulder replacement History of total right hip replacement History of total left knee replacement (TKR) x2 History of colonoscopy History of esophagogastroduodenoscopy (EGD) History of cholecystectomy History of appendectomy History of mandibular surgery 1978--wired shut History of tooth extraction History of wisdom tooth extraction History of eye surgery right---scar tissue from cataract sx History of bilateral cataract extraction History of cardiac cath [address] [facility]---"fistula in heart between 2 valves"--no stents; no cardio, just PCP History of lung biopsy right side--benign Family History Mother Colorectal cancer Father Lung cancer Family history of esophageal cancer Brother Family history of esophageal cancer Grandfather (Maternal) Family history of esophageal cancer Other No family history of adverse response to anesthesia Social History (Updated 06/22/24 @ 05:42 by Bill Rodriguez MD) Smoking Status: Never smoker Second Hand Exposure: No; Do You Dip or Chew Tobacco: No; Hx Alcohol Use: No Hx Substance Use: No Preferred Language: Syriac Communication Ability: Effective Pulp Mill Operator Required: No Beliefs That Will Affect Care: None marital status: Single Current Living Situation: Alone Current Living Situation Comment: live in one story home with her two cats How many Children do You have: 1 Feels Safe at Home: Yes Assistive Devices: Cane and Walker Physical Exam Musculoskeletal: Knee: + effusion (Minimally palpable with patellar ballottement test), + surgical incision (Healed), + limited ROM of knee (Left knee - extension 5, flexion 90) and + joint line tenderness; knee normal to inspection, no skin erythema and no ecchymosis Results & Data Vital Signs (Past 12 Hours) Vital Signs Temp Pulse Pulse Resp BP Pulse Ox O2 Del Method 06/22/24 08:06 36.5 C 69 18 137/68 95 Room Air 06/22/24 02:38 36.7 C 63 18 149/83 H 95 Room Air 06/21/24 23:14 76 06/21/24 23:14 36.6 C 79 18 150/66 H 96 Room Air Laboratory Results Laboratory Results - last 48 hr 06/21/24 06/21/24 06/21/24 16:16 17:14 17:24 WBC 5.34 RBC 4.32 Hgb 11.1 L Hct 35.5 L MCV 82.2 MCH 25.7 MCHC 31.3 L RDW Std Deviation 55.8 H RDW Coeff of Faizan 18.6 H Plt Count 340 MPV 8.6 L Immature Gran % (Auto) 0.4 Neut % (Auto) 54.4 Lymph % (Auto) 31.5 Bent % (Auto) 10.5 Eos % (Auto) 2.1 Baso % (Auto) 1.1 Neut # (Auto) 2.91 Lymph # (Auto) 1.68 Bent # (Auto) 0.56 Eos # (Auto) 0.11 Baso # (Auto) 0.06 Immature Gran # (Auto) 0.02 ESR 47 H PT Cancelled 11.2 INR Cancelled 1.0 APTT Cancelled 31 PTT Ratio Cancelled 1.2 VBG pH 7.39 VBG pCO2 50 VBG pO2 23 VBG HCO3 30 VBG O2 Saturation < 60.0 VBG Base Excess 4.2 Sodium 139 Potassium TNP 3.8 Chloride 105 Carbon Dioxide 28 Anion Gap 6 BUN 10 Creatinine 0.48 L Est Cr Clr Drug Dosing 123.0 eGFR 103.75 BUN/Creatinine Ratio 20.8 H Glucose 97 Calcium 9.1 Phosphorus 4.6 Magnesium 1.7 Total Bilirubin 0.4 AST TNP 19 ALT 10 Alkaline Phosphatase 69 Troponin I High Sens 102.2 H* 110.9 H* C-Reactive Protein 2.14 H Total Protein 6.8 Albumin 3.5 Globulin 3.3 Albumin/Globulin Ratio 1.1 Lipase 9 L Urine Color Dark Yellow Urine Appearance Clear Urine pH 5.5 Ur Specific [place] 1.013 Urine Protein Negative Urine Glucose (UA) Negative Urine Ketones Negative Urine Blood Negative Urine Nitrite Positive A Urine Bilirubin 1+ H Urine Urobilinogen Negative Ur Leukocyte Esterase 1+ H Urine WBC (Auto) 0-5 Urine RBC (Auto) 0-2 U Hyaline Cast (Auto) 0-2 U Epithel Cells (Auto) 0-2 Urine Bacteria (Auto) None Seen Calcium Oxalate Crystal Present A Fluid Comment Synovial Source Synovial Color Synovial Appearance Synovial WBC (Auto) Synovial RBC (Auto) Synovial Polynuclear % Synovial Mononuclear % Synovial Crystals Salicylates 11.2 06/21/24 06/22/24 06/22/24 19:55 05:38 10:43 WBC RBC Hgb Hct MCV MCH MCHC RDW Std Deviation RDW Coeff of Faizan Plt Count MPV Immature Gran % (Auto) Neut % (Auto) Lymph % (Auto) Bent % (Auto) Eos % (Auto) Baso % (Auto) Neut # (Auto) Lymph # (Auto) Bent # (Auto) Eos # (Auto) Baso # (Auto) Immature Gran # (Auto) ESR PT INR APTT PTT Ratio VBG pH VBG pCO2 VBG pO2 VBG HCO3 VBG O2 Saturation VBG Base Excess Sodium 138 Potassium 3.9 Chloride 105 Carbon Dioxide 26 Anion Gap 7 BUN 10 Creatinine 0.41 L Est Cr Clr Drug Dosing 145.4 eGFR 107.77 BUN/Creatinine Ratio 24.4 H Glucose 175 H Calcium 9.3 Phosphorus Magnesium Total Bilirubin AST ALT Alkaline Phosphatase Troponin I High Sens C-Reactive Protein Total Protein Albumin Globulin Albumin/Globulin Ratio Lipase Urine Color Urine Appearance Urine pH Ur Specific [place] Urine Protein Urine Glucose (UA) Urine Ketones Urine Blood Urine Nitrite Urine Bilirubin Urine Urobilinogen Ur Leukocyte Esterase Urine WBC (Auto) Urine RBC (Auto) U Hyaline Cast (Auto) U Epithel Cells (Auto) Urine Bacteria (Auto) Calcium Oxalate Crystal Fluid Comment Synovial Source Left Knee Synovial Color Red Synovial Appearance Bloody Synovial WBC (Auto) 583 H Synovial RBC (Auto) 1619872 Synovial Polynuclear % 75.1 Synovial Mononuclear % 24.9 Synovial Crystals Salicylates 8.4 Diagnostic Findings Knee X-Ray 06/21/24 15:43 INDICATION: Knee pain. TECHNIQUE: 4 views of the left knee. COMPARISON: Radiograph from 12/13/2023. FINDINGS/IMPRESSION: Periprosthetic lucency along the inferior/medial margin of the femoral hardware internally for hardware loosening. Femoral anterior periprosthetic lucency seen on the lateral view appears similar to prior. Linear lucency through the distal/anterior femoral cortex similar to prior. Otherwise no acute fracture or dislocation. Small to moderate joint effusion. Soft tissue swelling. Electronically signed by Jorge Beaver 06-21-2024 4:18 PM
[2024-06-22 12:24] LABS: Appearance Synovial Fluid Bloody; Color Synovial Fluid Red; Mononuclear WBC Synovial 24.9 %; Polynuclear WBC Synovial 75.1 %; RBC Synovial Fluid Auto 1512000 /uL; Source Synovial Fluid Left Knee; WBC Synovial Fluid Auto 583 /ul (0-200)
[2024-06-22] MEDS ORDERED: cefTRIAXone SODIUM 2,000 MG/50 ML BAG IV SCH (19:00)
--- NOTE | 2024-06-23 22:38 | Discharge Summary ---
Discharge Summary Date of Service June 22, 2024 Principal Dx & Hospital Course #1 = Principal Diagnosis (1) SVT (supraventricular tachycardia): patient presented to [facility] with report of SVT per EMS. again I do not have an EKG or rhythm strips from EMS to verify the rhythm. she converted to sinus tach following 6mg and 12mg of adenosine. her report of the HR varying from 150s to 180s makes a.fib or variable block a.flutter more likely than AVNRT SVT. emergency room notes from 01/2024 do substantiate "SVT." since her tachyarrhythmia is not frequent and resolves on its own without consequence, cardiology recommended no further medications or monitoring uless symptoms worsen. (2) Painful total knee replacement, left: the patient has had chronic discomfort related to her left TKR as documented in a 06/2023 outpatient ortho note by Dr Nikolay Posada. she presents with 2 weeks of severe left knee pain with swelling, warmth, and systemic symptoms (poor PO intake, hot/cold chills, etc). Intially treated with IV antibiotics, however within 24 hours, no swelling and no significant effusion was found. Ortho treid to aspirate knee but only obtained blood. will recommend followup with ortho Miguel Ángel. (3) Neuropathy: cont her usual gabapentin 900m BID (4) Chronic pain syndrome: cont MS-Contin 15mg BID. for acute pain - oxy 10mg q4h prn. cont gabapentin. (5) Hypertension: listed on her problem list, but is not on any anti-hypertensive medication. adding metoprolol for #1 above, however. follow BPs. (6) Depression: cont wellbutrin (7) Anastomotic ulcer: history of cont PPI twice daily she was taking very large amounts of aspirin at home she should be counseled to avoid NSAIDs given her gastric bypass status & her prior ulcer ER providers checked salicylate levels and these were acceptable Admission HPI Per Admitting Provider 68yo female with history of SVT in 01/2024 (did not require hospitalization), gastric bypass status, prior treated HepC infection, chronic pain syndrome on ch ronic narcotics (MS-contin BID), h/o anastomotic ulcer, migraines, mood disorder, and HTN presents from home via EMS due to concern for SVT and left knee pain. Patient reports that about 11am this morning she began to feel palpitations. She has a fit-bit watch and it noted her HR to be in the 150s. The heart rate gradually increased to as high as the 180s. The HR varied - it did not stay at a particular rate over the several hours of tachycardia. Due to the persistence of the tachycardia she finally called 911 about 1pm. While in the ambulance en route to [facility] she was told she was in SVT. She was given 6mg and 12mg of adenosine, respectively, for the reported SVT. This was successful as her HRs were low 100s by the time of arrival to [facility]. Unfortunately I do not have the EKG and/or rhythm strips obtained by EMS showing the reported SVT. By the time of my admission assessment the patient's HR was <100 and she was in NSR. In addition to the above the patient reports worsening left knee pain for about 2 weeks. She has chronic left knee pain but it has gotten to the point recently where she finds it difficult to weight bear, bend it, etc. The knee has been warm & swollen. During this 2-week time period she has been having hot/cold chills, having sweats at night, and her appetite has been poor. She was seen by Dr Nikolay Posada of orthopedics in 06/2023 for the knee. His records show that the knee was replaced in 2009, then revised in 2011. Dr Rahman was the orthopedist who performed the original surgery in 2009. Due to pain and swelling the ER today administered 125mg of IV solumedrol and also gave IV morphine. Discharge Exam Constitutional WD/WN, vitals as above ENMT external ear and nose normal, oropharynx normal Respiratory normal respiratory effort, lungs clear to auscultation Cardiovascular RRR, no murmur, no edema Musculoskeletal left knee: minimal swelling. Discharge Plan Discharge Items Patient Disposition: Home - Self-Care Reason For Visit: SVT, PAINFUL LEFT KNEE Discharge Diagnosis: painful left knee Activity: Resume your previous activity Non-emergency contact: Primary Care Provider Call non-emergency contact if: you have any medication questions Follow-up/Referrals: Pierre Hill DO [Primary Care Provider] - Diet: Regular Addtl Attending Provider Instructions: Will treat for uncomplicated UTI for 5 more days. First dose will be tonight at [facility] time, please take every 12 hours. recommend followup with PCP on Thursday. Will defer to PCP on who you should followup with regarding cardiology and orthopedics. Pending Studies at Discharge: No Stand-Alone Forms: My [facility], Smoking Cessation Medications and DC Order Prescriptions: New cefuroxime axetil 500 mg tablet 500 mg PO BID Qty: 10 0RF Continued loperamide [Imodium A-D] 2 mg capsule 2 mg PO Q6H PRN (Reason: Diarrhea) ondansetron 4 mg tablet,disintegrating 4 mg PO Q8H PRN (Reason: nausea and vomiting) Qty: 30 0RF bupropion HCl [Wellbutrin XL] 300 mg Tablet Extended Release 24 Hr 300 mg PO QAM Rx Instructions: TAKE WITH 150 MG ER = 450MG EVERY MORNING bupropion HCl [Wellbutrin XL] 150 mg Tablet Extended Release 24 Hr 150 mg PO QAM Rx Instructions: TAKE WITH 300MG XL =450MG XL EVERY MORNING sumatriptan succinate 100 mg tablet 100 mg PO UD MDD 2TABS PRN (Reason: Migraine Headache) Rx Instructions: ONE TABLET, NEEDED FOR MIGRAINE, MAY REPEAT IN TWO HOURS. MAX DAILY = 2 TABS epinephrine [EpiPen] 0.3 mg/0.3 mL Auto-Injector 0.3 mg IM DIRECTED PRN (Reason: Allergic Reaction) morphine 15 mg tablet extended release 15 mg PO UD Rx Instructions: fill history of 05/20 30 day supply 15 mg po bid Pepto-Bismol 262 mg Tablet 524 mg PO QID PRN (Reason: .gi-upset) timolol maleate 0.5 % drops 1 drp OPB QAM tafluprost (PF) 0.0015 % dropperette 2 drp OPB HS gabapentin 600 mg tablet 900 mg PO BID Qty: 0 0RF Held pantoprazole 40 mg tablet,delayed release (DR/EC) 40 mg PO BID 90 Days Qty: 180 1RF Hold Instructions: Resume on 06/28/24. resume after you completed antibiotics aspirin 500 mg Tablet,Delayed Release (Dr/Ec) 500 - 2,500 mg PO DAILY PRN (Reason: Pain) Hold Instructions: Provider's Order until seen by PCP. Discharge Orders: Discharge Order (Routine); Ordered 06/22/24 Ordered By: Refugio Stephenson Admission Data Admit Date/Time: 01/21/25 19:48 Attending Provider: Refugio Stephenson Admit Provider: Bill Rodriguez Primary Care Provider: Pierre Hill Other Providers: Nikolay Posada; Vic Crain Other Interventions: Discharge Summary Assessment (RN) Last Done: 06/22/24 11:47 Hospital Stay Data Consultations 06/21/24 19:48 Consult Orthopedic Surgery Routine 06/22/24 08:35 Consult Cardiology Routine Pending Results Patient Have Any Pending Studies at Discharge: No Discharge Instructions Given to Patient (Per Discharging Provider) Will treat for uncomplicated UTI for 5 more days. First dose will be tonight at [facility] time, please take every 12 hours. recommend followup with PCP on Thursday. Will defer to PCP on who you should followup with regarding cardiology and orthopedics. Total Time Total Time Spent Total Time Spent (In Minutes): 32 Coding Level of Care Code 55691 INP/OBS DISCH >30 MIN Diagnoses SVT (supraventricular tachycardia) I47.10 Painful total knee replacement, left T84.84XA; Z96.652 Neuropathy G62.9 Chronic pain syndrome G89.4 Essential hypertension I10 Hypertension type: essential hypertension Depression F32.9 Anastomotic ulcer K28.9
== END 2024-06-22 12:52 | disposition home or self-care (01) | DRG 560 ==
LOC: ED 14:49 → SUATTDRO 19:48 → EDINP 19:48 → 2E 22:23
DX: Z79.82 Long term (current) use of aspirin; Z79.899 Other long term (current) drug therapy; I10 Essential (primary) hypertension; R79.89 Other specified abnormal findings of blood chemistry; Y79.2 Prosthetic and other implants, materials and accessory orthopedic devices associated with adverse incidents; T84.84XA Pain due to internal orthopedic prosthetic devices, implants and grafts, initial encounter; F32.A Depression, unspecified; G89.4 Chronic pain syndrome; Z86.14 Personal history of Methicillin resistant Staphylococcus aureus infection; Z91.011 Allergy to milk products; Z88.2 Allergy status to sulfonamides; R70.0 Elevated erythrocyte sedimentation rate; G62.9 Polyneuropathy, unspecified; Z98.84 Bariatric surgery status; Z87.11 Personal history of peptic ulcer disease; Z79.891 Long term (current) use of opiate analgesic; I47.10 Supraventricular tachycardia, unspecified; Z88.8 Allergy status to other drugs, medicaments and biological substances; T84.033A Mechanical loosening of internal left knee prosthetic joint, initial encounter

== ENCOUNTER 2024-08-03 18:32 | Inpatient (IN) ==
--- NOTE | 2024-08-03 19:00 | Emergency Department Note ---
Impression & Plan Sustained SVT, Elevated troponin, Shortness of breath ED Provider Note NAME: IRVIN CERRATO AGE: 68 SEX: F : 1955 ARRIVES VIA: Ambulance INFORMANT: Patient ED PROVIDER(S): Candelario Rosales DO CHIEF COMPLAINT: shortness of breath HPI: Patient is a 68-year-old female with a past medical history of SVT, rhabdo, arthritis, anemia who presents to the ER for palpitations. She notes her symptoms started around 3:00 and ended just around 6:00 after receiving a total of 18 of adenosine via EMS. Patient was having shortness of breath. She was dizzy and lightheaded with any movement. She was found to be hypoxic by EMS and was consequently placed on nasal cannula and brought in. She reported feeling close to the fourth or fifth episode of this. ADDITIONAL HISTORY OBTAINED: EMS provides additional history and notes that patient was found to be hypoxic and placed on 2 L nasal cannula. Chronic Medical/Social Conditions Affecting Care: Per HPI PAST MEDICAL HISTORY:See Below PAST SURGICAL HISTORY:See Below FAMILY HISTORY:See Below SOCIAL HISTORY:See Below HOME MEDICATIONS:See Below ALLERGIES:See Below VITALS:See Below PHYSICAL EXAMINATION: GENERAL: Sitting up in bed, alert, well appearing, well nourished, no distress, non-toxic EYE EXAM: normal conjunctiva. PERRL and EOM's grossly intact. OROPHARYNX: mucous membranes are moist NECK: supple, no nuchal rigidity, no adenopathy, non-tender LUNGS: Clear to auscultation. Normal chest wall mechanics HEART: no murmurs, S1 normal and S2 normal ABDOMEN: abdomen soft, non-tender, normo-active bowel sounds, no masses, no rebound or guarding. UPPER EXTREMITIES: upper extremities are grossly normal. LOWER EXTREMITIES: No pitting edema. NEURO EXAM: Normal sensorium, cranial nerves II-XII grossly intact, normal speech, no gross weakness of arms, no gross weakness of legs. MEDICAL DECISION MAKING: Patient is a 68-year-old female who presents ER with above-stated complaint. IV was established and blood work was obtained. Labs show no significant leukocytosis. Mild anemia 11.4. BMP along with LFTs and bilirubin is unremarkable. Troponin mildly elevated at 70. This is trending up from 30. Lipase was normal. Chest x-ray was unremarkable. Patient was updated at bedside. With the elevated troponin patient was discussed with the hospitalist for further evaluation management treatment. Shortness of breath had resolved upon here and she was taken off the oxygen. Consults/Care Managements Discussions: Per MDM Triage Nursing notes reviewed. Limited review of prior medical records performed Vital Signs: reviewed and remarkable for tachycardic Differential diagnosis: Differential diagnoses includes but is not limited to pneumonia, bronchitis, COPD/Asthma exacerbation, pneumothorax, pulmonary embolism, congestive heart failure, acute coronary syndrome ER treatment provided: See below Diagnostics interpreted by me include EKG and cardiac monitoring as listed below: -Cardiac Monitoring: An order was placed for continuous cardiac monitoring. The monitor shows a rate of 90 with sinus rhythm. -ECG: Sinus tachycardia rate of 107 Normal axis No PVCs QTc 432 -Laboratory studies:Interpreted by me as stated above in MDM and shown below. Imaging studies: Xrays: As interpreted by me: Portable AP upright 1 view of the chest shows no focal infiltrate CTs show: none Procedures:none Critical Care: None Past Med/Surg History Problem List (Updated 08/03/24 @ 23:11 by Candelario Rosales DO) Shortness of breath (Acute) Elevated troponin (Acute) Sustained SVT (Acute) Current use of aspirin (Acute) SVT (supraventricular tachycardia) (Acute) Elevated troponin (Acute) Elevated erythrocyte sedimentation rate CRP elevated Anastomotic ulcer Depression Hypertension hx Chronic pain syndrome Painful total knee replacement, left (Acute) Epigastric pain Acute encephalopathy Hypoxia Generalized pain Bilateral knee pain (Acute) Bilateral hip pain (Acute) Back pain (Acute) Rhabdomyolysis (Acute) Fall (Acute) Iron deficiency Acute alteration in mental status (Acute) Hypokalemia Painful total knee replacement Ulcer at site of surgical anastomosis following bypass of stomach Adenoma Red blood cell antibody positive, compatible PRBC difficult to obtain Vitamin D insufficiency Anxiety Osteoarthritis Neuropathy Chronic pain Anemia (Acute) Medical History Anastomotic ulcer Acute hypoxemic respiratory failure Altered mental status Gastric ulcer Left wrist fracture Left wrist pain Gastritis Medical marijuana use has not used several years Diarrhea Encounter for pre-operative examination Melena Acute hypotension Acute GI bleeding Hx MRSA infection [facility] years ago, "it was in her blood" Irritable bowel syndrome with constipation Hepatitis C hx - treated History of anesthesia reaction hx of waking up during procedures Bulging discs Scoliosis Spinal stenosis Glaucoma Attention deficit disorder (ADD) Migraine Depression Hypertension hx GI bleed admitted to [facility] 06/2022; no current problems Surgical History H/O gastric bypass History of partial hysterectomy History of bilateral breast reduction surgery History of bilateral tubal ligation Status post right foot surgery x7--hardware in place Status post left foot surgery x7-hardware in place History of open reduction and internal fixation (ORIF) procedure right ankle--hardware in place History of fusion of cervical spine C4-C5--normal ROM History of right shoulder replacement History of total right hip replacement History of total left knee replacement (TKR) x2 History of colonoscopy History of esophagogastroduodenoscopy (EGD) History of cholecystectomy History of appendectomy History of mandibular surgery 1978--wired shut History of tooth extraction History of wisdom tooth extraction History of eye surgery right---scar tissue from cataract sx History of bilateral cataract extraction History of cardiac cath 2005 @ [facility]---"fistula in heart between 2 valves"--no stents; no cardio, just PCP History of lung biopsy right side--benign Family History Mother Colorectal cancer Father Lung cancer Family history of esophageal cancer Brother Family history of esophageal cancer Grandfather (Maternal) Family history of esophageal cancer Other No family history of adverse response to anesthesia Social History (Updated 06/22/24 @ 05:42 by Bill Rodriguez MD) Smoking Status: Never smoker Second Hand Exposure: No; Do You Dip or Chew Tobacco: No; Hx Alcohol Use: No Hx Substance Use: No Preferred Language: Bulgarian Communication Ability: Effective [employer] Wafer Required: No Beliefs That Will Affect Care: None marital status: Single Current Living Situation: Alone Current Living Situation Comment: live in one story home with her two cats How many Children do You have: 1 Feels Safe at Home: Yes Assistive Devices: Cane and Walker Allergies Allergies Allergy/AdvReac Type Severity Reaction Status Date / Time aripiprazole [From Abilify] Allergy Severe Tremors Unverified 06/17/24 13:03 bee venom protein (honey bee) Allergy Severe Anaphylaxis Verified 06/17/24 13:03 sulfamethoxazole Allergy Unknown at age 20, Verified 06/17/24 13:03 can not remember what happened trimethoprim Allergy Unknown at age 20, Verified 06/17/24 13:03 can not remember what happened metoclopramide [From Reglan] Allergy Verified 06/17/24 13:11 lactose AdvReac Intermediate ice cream Verified 06/17/24 13:03 gives her diarrhea milk AdvReac Intermediate Diarrhea Verified 06/17/24 13:03 Home Meds Home Medications Medication Instructions Recorded Confirmed bupropion HCl 150 mg 24 hr tablet, 150 mg PO QAM 06/03/22 06/21/24 extended release (Wellbutrin XL) bupropion HCl 300 mg 24 hr tablet, 300 mg PO QAM 06/03/22 06/21/24 extended release (Wellbutrin XL) sumatriptan succinate 100 mg tablet 100 mg PO UD PRN Migraine Headache 06/03/22 06/21/24 aspirin 500 mg tablet,delayed 500 - 2,500 mg PO DAILY PRN Pain 09/24/23 06/21/24 release bismuth subsalicylate 262 mg 524 mg PO QID PRN .gi-upset 09/24/23 06/21/24 tablet (Pepto-Bismol) tafluprost (PF) 0.0015 % eye drops 2 drp OPB HS 09/24/23 06/21/24 in a dropperette timolol maleate 0.5 % eye drops 1 drp OPB QAM 09/24/23 06/21/24 epinephrine 0.3 mg/0.3 mL 0.3 mg IM DIRECTED PRN Allergic 11/29/23 06/21/24 injection, auto-injector (EpiPen) Reaction loperamide 2 mg capsule (Imodium 2 mg PO Q6H PRN Diarrhea 06/17/24 06/21/24 A-D) morphine 15 mg tablet,extended 15 mg PO UD 06/21/24 06/21/24 release Previous Rx's Medication Instructions Recorded gabapentin 600 mg tablet 900 mg (1.5 x 600 mg) PO BID #0 12/16/23 tabs pantoprazole 40 mg tablet,delayed 40 mg PO BID 90 days #180 tabs 06/08/24 release ondansetron 4 mg disintegrating 4 mg PO Q8H PRN nausea and 06/17/24 tablet vomiting #30 tabs cefuroxime axetil 500 mg tablet 500 mg PO BID #10 tabs 06/22/24 Results & Data (ED) Vital Signs Vital Signs - 24 hr 08/03/24 18:35 08/03/24 18:40 08/03/24 19:00 Temperature 36.3 C L Temperature Source Oral Pulse Rate 107 H 109 H 111 H Pulse Rate from SpO2 Sensor 99 H Respiratory Rate 19 24 Respiratory Effort / Characteristics Non-Labored Spontaneous Respiratory Depth Normal Blood Pressure 146/92 H 143/77 H Blood Pressure Mean 110 99 Pulse Oximetry 95 91 Oxygen Delivery Method Room Air Room Air Sepsis Recent Fever Within 48 Hours Yes Sepsis New/Unexplained Change in Mental Status No Sepsis Action Taken by Nursing No Action Required 08/03/24 19:18 08/03/24 19:19 08/03/24 20:00 Temperature Temperature Source Pulse Rate 97 H Pulse Rate from SpO2 Sensor 98 H Respiratory Rate 27 H Respiratory Effort / Characteristics Respiratory Depth Blood Pressure 167/95 H Blood Pressure Mean 119 Pulse Oximetry 91 91 92 Oxygen Delivery Method Room Air Room Air Room Air Sepsis Recent Fever Within 48 Hours Sepsis New/Unexplained Change in Mental Status Sepsis Action Taken by Nursing 08/03/24 20:15 08/03/24 20:30 08/03/24 21:00 Temperature Temperature Source Pulse Rate 92 H 88 Pulse Rate from SpO2 Sensor 92 H Respiratory Rate 16 12 Respiratory Effort / Characteristics Respiratory Depth Blood Pressure 153/82 H 152/84 H Blood Pressure Mean 122 106 Pulse Oximetry 95 92 Oxygen Delivery Method Room Air Room Air Sepsis Recent Fever Within 48 Hours Sepsis New/Unexplained Change in Mental Status Sepsis Action Taken by Nursing 08/03/24 21:00 08/03/24 21:18 08/03/24 21:30 Temperature Temperature Source Pulse Rate 90 Pulse Rate from SpO2 Sensor Respiratory Rate 14 Respiratory Effort / Characteristics Respiratory Depth Blood Pressure 152/84 H 164/87 H Blood Pressure Mean 107 109 Pulse Oximetry Oxygen Delivery Method Sepsis Recent Fever Within 48 Hours Sepsis New/Unexplained Change in Mental Status Sepsis Action Taken by Nursing Laboratory Data 08/03/24 18:45 08/03/24 18:45 Lab Results 08/03/24 08/03/24 Range/Units 18:45 20:24 WBC 5.13 (4.8-10.8) K/ul RBC 4.56 (4.20-5.40) M/uL Hgb 11.4 L (12.0-16.0) g/dl Hct 36.5 L (37.0-47.0) % MCV 80.0 (80.0-100.0) fL MCH 25.0 (25.0-34.0) pg MCHC 31.2 L (32.0-36.0) g/dL RDW Std Deviation 44.1 (36.4-46.3) fL RDW Coeff of Faizan 15.3 H (11.5-14.5) % Plt Count 232 (130-400) K/uL MPV 8.6 L (9.4-12.4) fL Immature Gran % (Auto) 0.4 % Neut % (Auto) 59.2 % Lymph % (Auto) 27.9 % [place] % (Auto) 8.2 % Eos % (Auto) 3.7 % Baso % (Auto) 0.6 % Neut # (Auto) 3.04 (1.40-6.50) K/uL Lymph # (Auto) 1.43 (1.20-3.40) K/uL [place] # (Auto) 0.42 (0.11-0.59) K/uL Eos # (Auto) 0.19 (0.00-0.50) K/uL Baso # (Auto) 0.03 (0.00-0.20) K/uL Immature Gran # (Auto) 0.02 (0.01-0.20) K/uL APTT 34 H (21-31) Seconds PTT Ratio 1.3 Sodium 143 (136-145) mmol/L Potassium 3.6 (3.5-5.1) mmol/L Chloride 108 H (98-107) mmol/L Carbon Dioxide 30 (21-32) mmol/L Anion Gap 5 (3-11) BUN 13 (6-23) mg/dl Creatinine 0.51 L (0.6-1.2) mg/dl Est Cr Clr Drug Dosing 117.2 ml/min eGFR 102.25 BUN/Creatinine Ratio 25.5 H (10-20) Glucose 118 H (70-99(Fasting)) mg/dl Estimat Average Glucose 111 mg/dl Hemoglobin A1c 5.5 (4.5-5.6) % Calcium 9.4 (8.6-10.3) mg/dl Magnesium 1.8 (1.7-2.4) mg/dl Total Bilirubin 0.3 (0.2-1.0) mg/dl AST 17 (13-39) U/L ALT 10 (7-52) U/L Alkaline Phosphatase 73 (34-104) U/L Troponin I High Sens 38.6 H 69.5 H* D (0-14) pg/ml Total Protein 7.3 (6.0-8.3) gm/dl Albumin 3.7 (3.4-5.0) gm/dl Globulin 3.6 (2.5-4.0) gm/dl Albumin/Globulin Ratio 1.0 (0.9-2) Lipase 11 (11-82) U/L TSH 1.157 (0.300-4.500) uIu/ml Administered Medications Magnesium Sulfate/Dextrose (Magnesium Sulfate / D5w) 1 gm in 100 mls @ 50 mls/hr IV ONE ONE Stop: 08/03/24 23:58 Last Admin: 08/03/24 22:09 Dose: 50 mls/hr Documented By: DOC Discontinued Medications Sodium Chloride (Nss) 1,000 mls @ 999 mls/hr IV .Q1H1M ONE Stop: 08/03/24 19:49 Last Infusion: 08/03/24 20:01 Dose: Infused Documented By: Admin: 08/03/24 19:07 Dose: 999 mls/hr Documented By: DOC Sodium Chloride (Nss) 500 mls @ 999 mls/hr IV .Q31M ONE Stop: 08/03/24 20:26 Last Infusion: 08/03/24 20:27 Dose: Infused Documented By: Admin: 08/03/24 20:01 Dose: 999 mls/hr Documented By: DOC Promethazine HCl (Phenergan) 6.25 mg in 50.25 mls @ 201 mls/hr IV NOW STA Stop: 08/03/24 22:26 Last Admin: 08/03/24 22:47 Dose: 201 mls/hr Documented By: DOC Metoprolol Tartrate (Metoprolol Tartrate 1 Mg/Ml Vial) 2.5 mg IV NOW STA Stop: 08/03/24 22:13 Last Admin: 08/03/24 22:53 Dose: Not Given Documented By: DOC Morphine Sulfate (Morphine Sulfate Cr 15 Mg Tabcr) 15 mg PO NOW STA Stop: 08/03/24 22:35 Last Admin: 08/03/24 22:47 Dose: 15 mg Documented By: DOC Potassium Chloride (Potassium Chloride Crtab 20 Meq Tabcr) 40 meq PO NOW STA Stop: 08/03/24 21:38 Last Admin: 08/03/24 22:08 Dose: 40 meq Documented By: DOC Imaging Data Radiologist's Impression: Chest X-Ray 08/03/24 18:50 Clinical History: Chest pain Technique: A frontal view of the chest was obtained Comparison is made to the prior examination dated 06/21/2024 Findings: There are no confluent pulmonary infiltrates. The heart size is within normal limits. No pleural effusion or pneumothorax is seen. There is no definite pulmonary nodule. There is a cervical fusion. There is a right shoulder replacement Impression: No active disease Electronically signed by Markie Varghese 08-03-2024 7:58 PM Discharge Plan Visit Data Chief Complaint: Arrhythmia/Palpitations Stated Complaint: CHEST PAIN, SVT ED Provider: Candelario Rosales Discharge Problem: Sustained SVT, Elevated troponin, Shortness of breath Patient Disposition: Admitted As Inpatient Discharge Instructions Interventions: ED Discharge Assessment Last Done: 08/03/24 22:28
[2024-08-03 19:01] LABS: Basophils # (auto) 0.03 K/uL (0.00-0.20); Basophils % (auto) 0.6 %; Eosinophils # (auto) 0.19 K/uL (0.00-0.50); Eosinophils % (auto) 3.7 %; Hematocrit (blood only) 36.5 % (37.0-47.0); Hemoglobin 11.4 g/dl (12.0-16.0); Immature Granulocytes # (auto) 0.02 K/uL (0.01-0.20); Immature Granulocytes % (auto) 0.4 %; Lymphocytes # (auto) 1.43 K/uL (1.20-3.40); Lymphocytes % (auto) 27.9 %; Mean Corpuscular Hgb Conc 31.2 g/dL (32.0-36.0); Mean Platelet Volume 8.6 fL (9.4-12.4); Monocytes # (auto) 0.42 K/uL (0.11-0.59); Monocytes % (auto) 8.2 %; Neutrophils # (auto) 3.04 K/uL (1.40-6.50); Neutrophils % (auto) 59.2 %; Platelet Count 232 K/uL (130-400); RDW Coefficient of Variation 15.3 % (11.5-14.5); RDW Standard Deviation 44.1 fL (36.4-46.3); Red Blood Count 4.56 M/uL (4.20-5.40); White Blood Count 5.13 K/ul (4.8-10.8)
[2024-08-03] MEDS: SODIUM CHLORIDE 0.9% 1,000 ML IV ONE (19:07)
[2024-08-03 19:16] LABS: Albumin Level 3.7 gm/dl (3.4-5.0); BUN Creatinine Ratio 25.5 (10-20); Bilirubin,Total 0.3 mg/dl (0.2-1.0); Calcium 9.4 mg/dl (8.6-10.3); Creatinine Clr Calc Pharmacy 117.2 ml/min; Globulin 3.6 gm/dl (2.5-4.0); Potassium 3.6 mmol/L (3.5-5.1); Total Protein 7.3 gm/dl (6.0-8.3)
[2024-08-03 19:23] LABS: Troponin I High Sensitivity 38.6 pg/ml (0-14)
--- NOTE | 2024-08-03 19:58 | XRay Report ---
Clinical History: Chest pain Technique: A frontal view of the chest was obtained Comparison is made to the prior examination dated 06/21/2024 Findings: There are no confluent pulmonary infiltrates. The heart size is within normal limits. No pleural effusion or pneumothorax is seen. There is no definite pulmonary nodule. There is a cervical fusion. There is a right shoulder replacement Impression: No active disease Electronically signed by Markie Varghese 08-03-2024 7:58 PM
[2024-08-03] MEDS: SODIUM CHLORIDE 0.9% 500 ML IV ONE (20:01)
[2024-08-03 21:56] LABS: Magnesium 1.8 mg/dl (1.7-2.4)
--- NOTE | 2024-08-03 21:57 | History & Physical Report ---
Date of Service August 03, 2024 Assessment & Plan (1) Palpitations: Plan: Palpitations likely from recurrent SVT Hypertension, currently elevated, not on maintenance medications GERD on PPI chronic anemia, hemoglobin at baseline HCV status post Rx history of gastric bypass ADHD, not on maintenance medications chronic pain on narcotic Rx hyperglycemia rule out DM Incidental finding of thyroid nodule on chest CTA OBS Admit to PCU Initiate beta-maren Cardiology consult re: palpitations, likely recurrent SVT (Patient awaiting outpatient [facility] Check hemoglobin A1c Outpatient workup/NT eval for nonfunctioning thyroid nodule DVT prophylaxis per Lovenox subcu Full code Text document was generated using [email or web address] voice recognition software. It may contain grammatical or spelling errors. Kindly contact undersigned for clarification of any documentation item in question. History of Present Illness Chief Complaint: Palpitations Primary Care Provider: Pierre Hill DO History obtained from patient and records. Medical history significant for PSVT, hypertension, GERD, chronic anemia (baseline hemoglobin 10-11), HCV status post Rx, history of gastric bypass, migraine, ADHD, mood disorder, chronic pain on narcotic Rx. Recent confinement June 2024 for palpitations at home attributed to recurrent SVT status post adenosine administration by EMS. 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 Vagal maneuvers recommended on discharge for termination of attacks. Patient awaiting for outpatient [facility] [place] cardi[place] EPS evaluation. ZIO monitor recommended by specialist office as per outpatient notes. Patient was watching television tonight when she experienced SOB, palpitations reminiscent of SVT attack but more intense. Patient felt sweaty, nauseous and dizzy. No actual chest pain. Heart rate on her watch 1 80-1 90s as per patient. EMS called to patient's home. Symptoms and heart rate improved after IV adenosine administration en route to the ER. Patient currently comfortable except for nausea symptoms.. SBP currently 160s. 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 Allergies Allergy/AdvReac Type Severity Reaction Status Date / Time bee venom protein (honey bee) Allergy Severe Anaphylaxis Verified 06/17/24 13:03 sulfamethoxazole Allergy Unknown at age 20, Verified 06/17/24 13:03 can not remember what happened trimethoprim Allergy Unknown at age 20, Verified 06/17/24 13:03 can not remember what happened aripiprazole [From Abilify] AdvReac Severe Tremors Unverified 08/04/24 01:19 lactose AdvReac Intermediate ice cream Verified 06/17/24 13:03 gives her diarrhea milk AdvReac Intermediate Diarrhea Verified 06/17/24 13:03 metoclopramide [From Reglan] AdvReac Unknown Verified 08/04/24 01:19 Home Medications Medication Instructions Recorded Confirmed Type bupropion HCl 150 mg 24 hr tablet, 150 mg PO QAM 06/03/22 08/03/24 History extended release (Wellbutrin XL) bupropion HCl 300 mg 24 hr tablet, 300 mg PO QAM 06/03/22 08/03/24 History extended release (Wellbutrin XL) sumatriptan succinate 100 mg tablet 100 mg PO UD PRN Migraine Headache 06/03/22 08/03/24 History bismuth subsalicylate 262 mg 524 mg PO QID PRN .gi-upset 09/24/23 08/03/24 History tablet (Pepto-Bismol) tafluprost (PF) 0.0015 % eye drops 2 drp OPB HS 09/24/23 08/03/24 History in a dropperette timolol maleate 0.5 % eye drops 1 drp OPB QAM 09/24/23 08/03/24 History epinephrine 0.3 mg/0.3 mL 0.3 mg IM DIRECTED PRN Allergic 11/29/23 08/03/24 History injection, auto-injector (EpiPen) Reaction pantoprazole 40 mg tablet,delayed 40 mg PO BID 90 days #180 tabs 06/08/24 08/03/24 Rx release loperamide 2 mg capsule (Imodium 2 mg PO Q6H PRN Diarrhea 06/17/24 08/03/24 H istory A-D) ondansetron 4 mg disintegrating 4 mg PO Q8H PRN nausea and 06/17/24 08/03/24 Rx tablet vomiting #30 tabs morphine 15 mg tablet,extended 15 mg PO UD 06/21/24 08/03/24 History release duloxetine 20 mg capsule,delayed 20 mg PO QAM 08/03/24 08/03/24 History release furosemide 20 mg tablet 20 mg PO QAM 08/03/24 08/03/24 History triamcinolone acetonide 0.1 % 1 applic topical BID 08/03/24 08/03/24 History topical ointment gabapentin 600 mg tablet 1,800 mg PO BID 08/04/24 08/04/24 History Past Med/Surg History Problem List (Updated 08/04/24 @ 08:56 by Dwight Hinson MD) Palpitations Shortness of breath (Acute) Elevated troponin (Acute) Sustained SVT (Acute) Current use of aspirin (Acute) SVT (supraventricular tachycardia) (Acute) Elevated troponin (Acute) Elevated erythrocyte sedimentation rate CRP elevated Anastomotic ulcer Depression Hypertension hx Chronic pain syndrome Painful total knee replacement, left (Acute) Epigastric pain Acute encephalopathy Hypoxia Generalized pain Bilateral knee pain (Acute) Bilateral hip pain (Acute) Back pain (Acute) Rhabdomyolysis (Acute) Fall (Acute) Iron deficiency Acute alteration in mental status (Acute) Hypokalemia Painful total knee replacement Ulcer at site of surgical anastomosis following bypass of stomach Adenoma Red blood cell antibody positive, compatible PRBC difficult to obtain Vitamin D insufficiency Anxiety Osteoarthritis Neuropathy Chronic pain Anemia (Acute) Medical History Anastomotic ulcer Acute hypoxemic respiratory failure Altered mental status Gastric ulcer Left wrist fracture Left wrist pain Gastritis Medical marijuana use has not used several years Diarrhea Encounter for pre-operative examination Melena Acute hypotension Acute GI bleeding Hx MRSA infection [facility] years ago, "it was in her blood" Irritable bowel syndrome with constipation Hepatitis C hx - treated History of anesthesia reaction hx of waking up during procedures Bulging discs Scoliosis Spinal stenosis Glaucoma Attention deficit disorder (ADD) Migraine Depression Hypertension hx GI bleed admitted to [facility] 06/2022; no current problems Surgical History H/O gastric bypass History of partial hysterectomy History of bilateral breast reduction surgery History of bilateral tubal ligation Status post right foot surgery x7--hardware in place Status post left foot surgery x7-hardware in place History of open reduction and internal fixation (ORIF) procedure right ankle--hardware in place History of fusion of cervical spine C4-C5--normal ROM History of right shoulder replacement History of total right hip replacement History of total left knee replacement (TKR) x2 History of colonoscopy History of esophagogastroduodenoscopy (EGD) History of cholecystectomy History of appendectomy History of mandibular surgery 1978--wired shut History of tooth extraction History of wisdom tooth extraction History of eye surgery right---scar tissue from cataract sx History of bilateral cataract extraction History of cardiac cath 2005 @ ---"fistula in heart between 2 valves"--no stents; no cardio, just PCP History of lung biopsy right side--benign Family History Mother Colorectal cancer Father Lung cancer Family history of esophageal cancer Brother Family history of esophageal cancer Grandfather (Maternal) Family history of esophageal cancer Other No family history of adverse response to anesthesia Social History (Updated 06/22/24 @ 05:42 by Bill Rodriguez MD) Smoking Status: Never smoker Second Hand Exposure: No; Do You Dip or Chew Tobacco: No; Hx Alcohol Use: No Hx Substance Use: No Preferred Language: Divehi Communication Ability: Effective Scow Captain Required: No Beliefs That Will Affect Care: None marital status: Single Current Living Situation: Alone Current Living Situation Comment: live in one story home with her two cats How many Children do You have: 1 Other Information That Helps Us Care for You: Yes (home alone, no support person) Feels Safe at Home: Yes Safety Concerns: Feels Safe At This Time Assistive Devices: Cane and Walker Review of Systems Review of Systems: As per HPI, all other systems reviewed and negative Physical Exam Physical Exam: GENERAL: Comfortable, pleasant, obese, no respiratory distress SKIN: Normal color, warm HEENT: [place] palpebral conjunctivae, no ptosis, dry buccal mucosa NECK : Supple, no tenderness CHEST : CTA, no tenderness HEART : RRR, no obvious murmurs ABDOMEN: Some distention, nontender EXTREMITIES : No LE swelling/tenderness, palpable pulses, no other conspicuous deformities noted NEUROLOGIC : Coherent, no facial asymmetry, no other gross focality Results & Data Results & Data Vital Signs (Past 12 Hours) Vital Signs Temp Pulse Resp BP Pulse Ox O2 Del Method 08/03/24 21:00 88 12 152/84 H 92 Room Air 08/03/24 20:30 153/82 H 08/03/24 20:15 92 H 16 95 Room Air 08/03/24 20:00 97 H 27 H 167/95 H 92 Room Air 08/03/24 19:19 91 Room Air 08/03/24 19:18 91 Room Air 08/03/24 19:00 111 H 24 143/77 H 91 Room Air 08/03/24 18:40 109 H 08/03/24 18:35 36.3 C L 107 H 19 146/92 H 95 Room Air Laboratory Results Laboratory Results WBC 5.13 K/ul (4.8-10.8) 08/03/24 18:45 RBC 4.56 M/uL (4.20-5.40) 08/03/24 18:45 Hgb 11.4 g/dl (12.0-16.0) L 08/03/24 18:45 Hct 36.5 % (37.0-47.0) L 08/03/24 18:45 MCV 80.0 fL (80.0-100.0) 08/03/24 18:45 MCH 25.0 pg (25.0-34.0) 08/03/24 18:45 MCHC 31.2 g/dL (32.0-36.0) L 08/03/24 18:45 RDW Std Deviation 44.1 fL (36.4-46.3) 08/03/24 18:45 RDW Coeff of Faizan 15.3 % (11.5-14.5) H 08/03/24 18:45 Plt Count 232 K/uL (130-400) 08/03/24 18:45 MPV 8.6 fL (9.4-12.4) L 08/03/24 18:45 Immature Gran % (Auto) 0.4 % 08/03/24 18:45 Neut % (Auto) 59.2 % 08/03/24 18:45 Lymph % (Auto) 27.9 % 08/03/24 18:45 [facility] % (Auto) 8.2 % 08/03/24 18:45 Eos % (Auto) 3.7 % 08/03/24 18:45 Baso % (Auto) 0.6 % 08/03/24 18:45 Neut # (Auto) 3.04 K/uL (1.40-6.50) 08/03/24 18:45 Lymph # (Auto) 1.43 K/uL (1.20-3.40) 08/03/24 18:45 [facility] # (Auto) 0.42 K/uL (0.11-0.59) 08/03/24 18:45 Eos # (Auto) 0.19 K/uL (0.00-0.50) 08/03/24 18:45 Baso # (Auto) 0.03 K/uL (0.00-0.20) 08/03/24 18:45 Immature Gran # (Auto) 0.02 K/uL (0.01-0.20) 08/03/24 18:45 Sodium 143 mmol/L (136-145) 08/03/24 18:45 Potassium 3.6 mmol/L (3.5-5.1) 08/03/24 18:45 Chloride 108 mmol/L (98-107) H 08/03/24 18:45 Carbon Dioxide 30 mmol/L (21-32) 08/03/24 18:45 Anion Gap 5 (3-11) 08/03/24 18:45 BUN 13 mg/dl (6-23) 08/03/24 18:45 Creatinine 0.51 mg/dl (0.6-1.2) L 08/03/24 18:45 Est Cr Clr Drug Dosing 117.2 ml/min 08/03/24 18:45 eGFR 102.25 08/03/24 18:45 BUN/Creatinine Ratio 25.5 (10-20) H 08/03/24 18:45 Glucose 118 mg/dl (70-99(Fasting)) H 08/03/24 18:45 Calcium 9.4 mg/dl (8.6-10.3) 08/03/24 18:45 Magnesium 1.8 mg/dl (1.7-2.4) 08/03/24 18:45 Total Bilirubin 0.3 mg/dl (0.2-1.0) 08/03/24 18:45 AST 17 U/L (13-39) 08/03/24 18:45 ALT 10 U/L (7-52) 08/03/24 18:45 Alkaline Phosphatase 73 U/L (34-104) 08/03/24 18:45 Troponin I High Sens 69.5 pg/ml (0-14) H* D 08/03/24 20:24 Total Protein 7.3 gm/dl (6.0-8.3) 08/03/24 18:45 Albumin 3.7 gm/dl (3.4-5.0) 08/03/24 18:45 Globulin 3.6 gm/dl (2.5-4.0) 08/03/24 18:45 Albumin/Globulin Ratio 1.0 (0.9-2) 08/03/24 18:45 Lipase 11 U/L (11-82) 08/03/24 18:45 Impressions Chest X-Ray 08/03/24 18:50 Clinical History: Chest pain Technique: A frontal view of the chest was obtained Comparison is made to the prior examination dated 06/21/2024 Findings: There are no confluent pulmonary infiltrates. The heart size is within normal limits. No pleural effusion or pneumothorax is seen. There is no definite pulmonary nodule. There is a cervical fusion. There is a right shoulder replacement Impression: No active disease Electronically signed by Markie Varghese 08-03-2024 7:[address] chest: 1. No evidence of pulmonary embolism or significant vascular stenosis. 2. Bilateral congestive changes with stable calcified right lung nodules 3. Moderate para-esophageal hiatus hernia, with related gastro-esophageal junction surgical sutures. 4. Right thyroid hypodense nodule measuring 12 mm. 5. Splenomegaly. Diagnostic Findings EKG as per my interpretation: rate 105, sinus tachycardia, LAD, LAFB, no ischemia
[2024-08-03 22:06] LABS: Estimated Average Glucose 111 mg/dl; Hemoglobin A1C 5.5 % (4.5-5.6)
[2024-08-03] MEDS: POTASSIUM CHLORIDE CRTAB 20 MEQ TABCR PO STA (22:08)
[2024-08-03] MEDS: MAGNESIUM SULFATE / D5W 1 GM/100 ML BAG IV ONE (22:09)
[2024-08-03 22:12] LABS: Thyroid Stimulating Hormone 1.157 uIu/ml (0.300-4.500)
[2024-08-03 22:18] LABS: Partial Thromboplastin Ratio 1.3; Partial Thromboplastin Time 34 Seconds (21-31)
[2024-08-03] MEDS: PROMETHAZINE 6.25 MG/50.25 ML BAG IV STA (22:47)
[2024-08-03] MEDS: MoRPHine SULFATE CR 15 MG TABCR PO STA (22:47)
[2024-08-03] MEDS: METOPROLOL TARTRATE 1 MG/ML VIAL IV STA (22:53)
[2024-08-03] MEDS: ACETAMINOPHEN 325 MG TAB PO STA (23:10)
[2024-08-04] MEDS: OPTIRAY 320 125ml IV ONE (00:14)
--- NOTE | 2024-08-04 01:47 | CT Scan Report ---
EXAM: CT angio chest PE protocol CLINICAL HISTORY: sob TECHNIQUE: CT angiography of the chest was performed with and without intravenous contrast with the following protocol: axial images with, reconstructed coronal and sagittal images. Non-contrast images were initially acquired, followed by contrast-enhanced images in arterial and venous phases. Intravenous contrast 118 ML OPTIRAY 320 was administered using automated injection techniques. Bolus tracking was employed to optimize arterial phase imaging. One of these 3D techniques was utilized: Maximum Intensity Pixel (MIP), 3D Reconstructed Images, Volume Rendered Images, Surface Shaded Rendering. One of the following dose reduction techniques was utilized for this exam: Automated exposure control, adjustment of the mA and/or kV according to patient size, and use of iterative reconstruction. COMPARISON: prior 02/12/2024 FINDINGS: Aorta and Great Vessels: Ascending Aorta: Normal in caliber, no aneurysm, dissection, or significant atherosclerosis. Aortic Arch: Normal in caliber, no aneurysm, dissection, or significant atherosclerosis. Descending Aorta: Normal in caliber, no aneurysm, dissection, or significant atherosclerosis. Pulmonary Arteries: The main pulmonary artery and its branches are patent. No evidence of pulmonary embolism or significant stenosis. Heart: Cardiac Chambers: no gross abnormality. Pericardium: No pericardial effusion or thickening. Lungs and Pleura: Bilateral congestive changes. No evidence of consolidation, collapse, or focal lesions. Bilateral upper lobar patchy ground glass attenuation, likely respiratory related. bilateral basal subpleural ground glass attenuation, likely gravitational. Right upper lobar apical and middle lobar perifissural 3 and 4 mm calcified nodules (stable). No pleural effusion or pleural thickening. Mediastinum: No mediastinal mass or abnormal lymphadenopathy. Normal appearance of the trachea and central bronchi. Hilar Structures: Hilar structures are normal without enlargement. Chest Wall: No mass lesions or abnormalities in the chest wall. Vascular Structures: Superior Vena Cava: Patent without evidence of stenosis or thrombus. Inferior Vena Cava: Patent without evidence of stenosis or thrombus. Bones and Soft Tissues: Spondylotic changes. Bilateral arthritic changes of the glenohumeral joints, with the right humeral hardware arthroplasty. No fractures, lytic, or blastic lesions of the visualized bony structures. Soft tissues are unremarkable. Moderate para-esophageal hiatus hernia, with related gastro-esophageal junction surgical sutures. Right thyroid hypodense nodule measuring 12 mm. Splenomegaly. IMPRESSION: 1. No evidence of pulmonary embolism or significant vascular stenosis. 2. Bilateral congestive changes with stable calcified right lung nodules 3. Moderate para-esophageal hiatus hernia, with related gastro-esophageal junction surgical sutures. 4. Right thyroid hypodense nodule measuring 12 mm. 5. Splenomegaly. 6. No significant interval changes. Electronically signed by Ainsley Galeas 08-04-2024 01:46 AM
[2024-08-04] MEDS: GABAPENTIN 600 MG TAB PO SCH ×2 (02:24→04:16)
[2024-08-04] MEDS: SODIUM CHLOR 0.45% + 20MEQ KCL 20 MEQ/1,000 ML BAG IV ONE (03:03)
[2024-08-04] MEDS: TRIAMCINOLONE ACET 0.1% OINT 15 GM TUBE TOP SCH (04:29)
[2024-08-04] MEDS: PROMETHAZINE 6.25 MG/50.25 ML BAG IV PRN (04:29)
[2024-08-04 06:54] LABS: Basophils # (auto) 0.03 K/uL (0.00-0.20); Basophils % (auto) 0.5 %; Eosinophils # (auto) 0.11 K/uL (0.00-0.50); Eosinophils % (auto) 1.7 %; Hematocrit (blood only) 35.8 % (37.0-47.0); Hemoglobin 11.3 g/dl (12.0-16.0); Immature Granulocytes # (auto) 0.02 K/uL (0.01-0.20); Immature Granulocytes % (auto) 0.3 %; Lymphocytes # (auto) 2.81 K/uL (1.20-3.40); Lymphocytes % (auto) 42.8 %; Mean Corpuscular Hemoglobin 25.3 pg (25.0-34.0); Mean Corpuscular Hgb Conc 31.6 g/dL (32.0-36.0); Mean Corpuscular Volume 80.3 fL (80.0-100.0); Mean Platelet Volume 8.6 fL (9.4-12.4); Monocytes # (auto) 0.59 K/uL (0.11-0.59); Neutrophils # (auto) 3.01 K/uL (1.40-6.50); Neutrophils % (auto) 45.7 %; Platelet Count 266 K/uL (130-400); RDW Coefficient of Variation 15.3 % (11.5-14.5); Red Blood Count 4.46 M/uL (4.20-5.40); White Blood Count 6.57 K/ul (4.8-10.8)
[2024-08-04 07:25] LABS: BUN Creatinine Ratio 20.5 (10-20); Calcium 9.3 mg/dl (8.6-10.3); Creatinine Clr Calc Pharmacy 135.9 ml/min; Potassium 4.2 mmol/L (3.5-5.1)
[2024-08-04 08:31] LABS: Troponin I High Sensitivity 57.4 pg/ml (0-14)
--- OUTSIDE RECORDS SUMMARY | 2024-08-04 08:57 | External Medical Summary | Summary of Care ---
Author Name Unknown Organization [facility] Address [address] [place] [address] Phone [phone] Care Team Providers Care General Operator Name Role Phone Pierre Hill DO Primary Care Provider [phone] Reason for Referral * Evaluate & Treat - Unlimited Visits (Within 10 days (routine)) - Authorized Specialty Diagnoses / Procedures Referred By Contkarin t Referred To Contact Psychiatry Diagnoses Chronic pain syndrome Severe episode of recurrent major depressive disorder, 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, predominantly inattentive type Pierre Hill DO [address] [place] [address] Phone: tel: fax: Referral ID Status Reason Start Date Expiration Date Visits Requested Visits Authorized [id number] Authorized Specialty Services Required 08/01/2024 999 [id number] Question Answer Referral Priority Within 10 days (routine) Where should this appointment be scheduled? [facility] Is this referral for medication management? Yes Reason for Referral ADHD Specific Condition ADHD Diagnosed and Needs Medication Management Comments Depression, and chronic pain Reason for Visit * Reason Comments Follow Up Pt here for 1m follo w up - bed sore on bottom: on going 4m. Washing the area, using Zinc oxide Pt is on Morphine ER and Aspirin for right hip pain - on going about 1 month. Rates pain about 8 Wants to know if she can go back on Aderall. Having a hard time getting daily things done. Gets overwhelmed. Encounter Details Date Type Department Care Team (Latest Contact Info) Description 08/01/2024 11:20 AM EST Office Visit [facility] [address], [place] [address] [place] [address] Pierre Hill, DO [address] [place] [address] HTN, goal below 140/90*; Chronic pain syndrome; Spinal stenosis of lumbar region with neurogenic claudication; Severe episode of recurrent major depressive disorder, without psychotic features (HCC); Status post total left knee replacement; Vitamin D deficiency; SVT (supraventricular tachycardia) (HCC); Gastroesophageal reflux disease without esophagitis; Gastric bypass status for obesity; Chronic pain of left knee; Attention-deficit hyperactivity disorder, predominantly inattentive type; Hepatitis C virus infection without hepatic coma, unspecified chronicity; Skin lesion Allergies Active Allergy Reactions Criticality Noted Date [...] as of this encounter (statuses as of 08/01/2024) Medications buPROPion HCl ER (XL) 300 MG Oral Tablet Extended Release 24 Hour (Wellbutrin XL) take 1 tablet by mouth every day in the am with 150mg to make 450mg 90 Tablet 2 5 12:05 PM EST 08/19/19 24 Active Gabapentin 600 MG Oral Tablet (Neurontin) take 2 tablets by mouth three times daily 540 Tablet 1 5 12:01 PM EST 09/11/19 24 Active Additional Information Patient taking differently: 1,800 mg Oral BID (.AM/PM), Reported on 08/01/2024 EPINEPHrine 0.3 MG/0.3ML Injection Solution Auto-injector (Autoinjector) USE DIRECTED 6 Each 3 03/08/20 Active Tafluprost (PF) 0.0015 % Ophthalmic Solution (Zioptan) Instill 1 Drop into both eyes at bedtime. Active Timolol Maleate 0.25 % Ophthalmic Solution (Timoptic) Instill 1 Drop into both eyes in the morning. 09/24/19 24 Active SUMAtriptan Succinate 100 MG Oral Tablet (Imitrex) Take 1 tablet at onset of migraine may repeat dose 2 hours later as needed for migraine headache maximum 200 mg per 24 hour 10 Tablet 2 03/31/20 24 Active buPROPion HCl ER (XL) 150 MG Oral Tablet Extended Release 24 Hour (Wellbutrin XL)Indications:E pisode of recurrent major depressive disorder, unspecified depression episode severity (HCC) Take 1 Tablet by mouth in the morning. 90 Tablet 3 06/03/19 25 Active Pepto-Bismol 262 MG Oral Tablet (Bismuth Subsalicylate) Take 2 Tablets by mouth daily as needed for Heartburn (abdominal pain). Active Pantoprazole Sodium 40 MG Oral Tablet Delayed Release (Protonix)Indica tions:Gastroesop hageal reflux disease without esophagitis Take 1 Tablet by mouth in the morning and 1 Tablet before bedtime. 120 Tablet 5 2:26 PM EST 06/13/19 25 Active Loperamide HCl 2 MG Oral Capsule (Imodium) Take 1 Capsule by mouth as needed for Diarrhea. Active Lactase 3000 UNIT Oral Tablet (Lactaid) Take 1 Tablet by mouth as needed (lactose intolerance). Active Acetaminophen 500 MG Oral Tablet (Tylenol) Take 1 Tablet by mouth 2 times a day as needed for Pain, Breakthrough (with the morphine dose). (Up to 3000 mg per day) Active Vitamin B-12 1000 MCG Oral Tablet (Cyanocobalamin) Indications:Praveena ike bypass status for obesity Take 1 Tablet by mouth in the morning. 06/28/19 25 Active Triamcinolone Acetonide 0.1 % External Ointment (Aristocort)Quin cations:Dermatit is Apply topically to affected area 2 times a day. To affected area. 30 g 1 5 7:25 AM EST 07/08/19 25 Active Furosemide 20 MG Oral Tablet (Lasix)Indicatio ns:Leg edema Take 1 Tablet by mouth in the morning. 100 Tablet 3 5 11:13 AM EST 07/08/19 25 Active Morphine Sulfate ER 15 MG Oral Tablet Extended Release (Ms Contin)Indicatio ns:Chronic pain syndrome,Chronic pain of left knee Take 1 Tablet by mouth in the morning and 1 Tablet before bedtime. 60 Tablet 07/28/19 25 Active Multivitamin Gummies Adult Oral Tablet Chewable Take 1 Tablet by mouth in the morning. Active DULoxetine HCl 20 MG Oral Capsule Delayed Release Particles (Cymbalta)Indica tions:Spinal stenosis of lumbar region with neurogenic claudication Take 2 Capsules by mouth in the morning. Do not cut, crush or chew. 200 Capsule 3 08/02/19 25 Active Cefuroxime Axetil 500 MG Oral Tablet (Ceftin) Take 1 Tablet by mouth in the morning and 1 Tablet before bedtime. 06/22/19 25 025 Discontin ued(Medic ation List Clean Up) DULoxetine HCl 20 MG Oral Capsule Delayed Release Particles (Cymbalta)Indica tions:Spinal stenosis of lumbar region with neurogenic claudication Take 1 Capsule by mouth in the morning. Do not cut, crush or chew. 100 Capsule 3 5 11:13 AM EST 07/08/19 25 025 Discontin ued(Refil l) documented as of this encounter (statuses as of 08/01/2024) Active Problems Problem Noted Date Diagnosed Date Hepatitis C virus infection without hepatic coma 06/26/2024 Severe episode of recurrent major depressive disorder, without psychotic features 06/24/2024 Gastric bypass status for obesity 06/24/2024 SVT (supraventricular tachycardia) 06/24/2024 Chronic pain of left knee 06/24/2024 Status post total left knee replacement 06/24/19 25 Food insecurity 04/11/2024 Overview: Per [facility] Protocol Chronic pain syndrome 04/08/2024 Gastroesophageal reflux disease without esophagi tis 04/08/2024 Postmenopausal status, age-related 03/20/2024 Vitamin D deficiency 03/20/2024 Controlled substance agreement signed 03/20/2024 Primary open angle glaucoma (POAG) of both eyes, severe stage 03/14/2024 Attention-deficit hyperactiv ity disorder, predominantly inattentive type 03/14/2024 Spinal stenosis of lumbar re gion with neurogenic claudication 03/14/2024 DDD (degenerative disc disease), cervical 2023 Chronic low back pain 03/04/2020 Migraine 03/04/2020 HTN, goal below 140/90 03/04/2020 documented as of this encounter (statuses as of 08/01/2024) Resolved Problems Problem Noted Date Diagnosed Date Resolved Date Severe episode of recurrent major depressive disorder, without psychotic features 06/24/2024 Opioid dependence with withdrawal 03/14/2024 06/24/2024 Acute respiratory failure with hypoxia 03/14/2024 03/14/2024 Primary open angle glaucoma (POAG) 03/14/2024 03/21/2024 Overview (03/21/2024): More specified on pl Right eye, severe stage Near syncope 03/07/2024 08/01/2024 Complicated UTI (urinary tract infection) 03/07/2024 06/24/2024 Upper gastrointestinal bleed 03/04/2020 03/21/2024 Overview (03/21/2024): historical Depression 03/04/2020 06/24/2024 documented as of this encounter (statuses as of 08/01/2024) Immunizations Name Administration Dates Next Due COVID-19 mRNA, LNP-s, No Pre serve, 2-Dose Series ([employer]) 08/31/2022,08/30/2020,07/30/2020 COVID-19, MRNA-LNP, PF, 30 M CG/0.3 mL, 12 YRS AND ABOVE, IM ([employer]-Comirnat) 03/14/2024 Covid-19, Mrna, Lnp-s, Pf, B ivalent, 30 Mcg, IM, 12 yrs and above (Pfizer) 09/23/2022 Pneumococcal Conjugate Vacc, 13 Valent (Prevnar) 05/23/2015 Pneumococcal Conjugate Vacci ne, 20-valent ([id number]) 06/24/2024 Pneumococcal Polysaccharide PPV23 (Pneumovax) 02/16/2014,04/25/2008 RSV Vac., Recomb, Adjuvant, PF,0.5 Ml (Arexvy) 06/24/2024 Seasonal Influenza Vac., MDV , IM, 0.5 mL (Fluzone) 02/24/2019,03/03/2017,03/18/2016,04/17,04/16/2015,02/02/2014,04/04/2013 ,04/03/2013,03/23/2013,04/12/2012,04/01,03/27/2011 Seasonal Influenza Virus Vac cine, Unspecified Formulation 02/19/2010 Seasonal Influenza, High Dos e, Trivalent, PF, IM (Fluzone HD) 03/14/2024 TDAP, Age 7 and older, IM (Adacel) 02/24/2019 documented as of this encounter Social History Tobacco Use Types Packs/Day Years Used Date Smoking Tobacco: Never Smokeless Tobacco: Never Tobacco Cessation:Counseling Given: Yes Alcohol Use Standard Drinks/Week Comments Not Currently 0 (1 standard drink = 0.6 oz pur e alcohol) occasional PHQ-2 Answer Date Recorded PHQ Adult Total Score 0 06/27/2024 Hunger Vital Sign Answer Date Recorded Within the past 12 months, y ou worried that your food would run out before you got the money to buy more. Sometimes true Within the past 12 months, t he food you bought just didn't last and you didn't have money to get more. Sometimes true Childcare Answer Date Recorded Do you feel overwhelmed with taking care of a child, family member or friend? No 06/24/2024 Does your family need help f inding childcare? (Household - for ages 0-17 years) Not on file 06/24/2024 Clothing Answer Date Recorded Have you been unable to get clothing when it was really needed? No 06/24/2024 Is your family able to get c lothes or diapers when needed? (Household - for ages 0-17 years) Not on file 06/24/2024 Personal Safety Answer Date Recorded Do you feel unsafe or have concerns for your saf ety? No 06/24/2024 Do you have concerns for you r family's safety? (Household - for ages 0-17 years) Not on file 06/24/2024 Utilities Answer Date Recorded Do you have trouble paying y our heating, water, or electric bill? Yes 06/24/2024 Is your family able to pay t he heat, water, or electric bill? (Household - for ages 0-17 years) Not on file 06/24/2024 Does your family have access to good internet? (Household - for ages 0-17 years) Not on file 06/24/2024 Employment Status Answer Date Recorded Are you unemployed or without regular income? No 06/24/2024 Does the household have a re gular source of income? (Household - for ages 0-17 years) Not on file 06/24/2024 Social Connections Answer Date Recorded How often do you feel lonely or isolated from th ose around you? Never 06/24/2024 Financial Resource Strain Answer Date R ecorded Do you have any trouble payi ng for your medications, or do you think you might in the future? Yes 06/24/2024 Does your family have troubl e paying for medicine? (Household - for ages 0-17 years) Not on file 06/24/2024 Transportation Needs Answer Date Record ed Do you have trouble getting a ride to medical visits or work? (Adult - for ages 18 years and over) Not on file 06/24/2024 Does your family have a hard time getting a ride to doctors visits? (Household - for ages 0-17 years) Not on file 06/24/2024 Has lack of transportation k ept you from medical appointments, meetings, work, or from getting things needed for daily living? Check all that apply. Yes, it has kept me from medical appointments 06/24/2024 Do you (or your family) have trouble finding or paying for a ride (transportation)? (Household - for ages 0-17 years) Not on file 06/24/2024 Housing Stability Answer Date Recorded Do you currently live in a s helter or have no steady place to sleep at night? No 06/24/2024 Do you think you are at risk of becoming homeless? (Adult - for ages 18 years and over) Not on file 06/24/2024 Does your family worry about paying for your home or becoming homeless? (Household - for ages 0-17 years) Not on file 0 06/24/2024 Are you homeless or worried that you might be in the future? No 06/24/2024 Are you (or your family) kathryn eless or worried that you might be in the future? (Household - for ages 0-17 years) Not on file 01 / Food Insecurity Answer Date Recorded Do you need food for this week? No 06/24/2024 Are you able to get enough f ood for your family? (Household - for ages 0-17 years) Not on file 06/24/2024 Does your family need food t his week? (Household - for ages 0-17 years) Not on file 06/24/2024 Do you always have enough fo od for your family? (Household - for ages 0-17 years) Not on file 06/24/2024 Food Insecurity Answer Date Recorded Within the past 12 months, y ou worried that your food would run out before you got the money to buy more. Sometimes true Within the past 12 months, t he food you bought just didn't last and you didn't have money to get more. Sometimes true Do you need food for this week? No 06/24/2024 Comments No Sex and Gender Information Value Date Recorded Sex Assigned at Female 12/14/2022 5:28 AM EDT Legal Sex Female 1:33 AM EDT Gender Identity Female 12/14/2022 5:28 AM EDT Sexual Orientation Straight 10/11/2023 4: 47 AM EDT documented as of this encounter Last Filed Vital Signs Vital Sign Reading Time Taken Comments Blood Pressure 154/84 08/01/2024 11:39 AM EST Pulse 73 08/01/2024 11:39 AM EST Temperature 36.9 C (98.5 F) 08/01/2024 11:[address] Respiratory Rate - - Oxygen Saturation 98% 08/01/2024 11:39 AM EST Inhaled Oxygen Concentration - - Weight 87.2 kg (192 lb 3.2 oz) 08/01/2024 11:39 AM EST Height 162.6 cm (5' 4") 08/01/2024 11:39 AM EST Body Mass Index 32.99 08/01/2024 11:39 AM EST documented in this encounter Functional Status * Are you deaf or do you have serious difficulty hearing? Answer Date of Assessment Author No 03/07/2024 3:06 PM EDT Kiki Lang RN * Are you blind or do you have serious difficulty seeing, even when wearing glasses? Answer Date of Assessment Author No 03/07/2024 3:06 PM EDT Kiki Lang RN * Do you have serious difficulty walking or climbing stairs? (5 years old or older) Answer Date of Assessment Author Yes 03/07/2024 3:06 PM EDT Kiki Lang RN * Do you have difficulty dressing or bathing? (5 years old or older) Answer Date of Assessment Author No 03/07/2024 3:06 PM Kiki Robin RN * Because of a physical, mental, or emotional condition, do you have difficulty doing errands alone such as visiting a doctors office or shopping? (15 years old or older) Answer Date of Assessment Author No 03/07/2024 3:06 PM Kiki Robin RN documented as of this encounter Mental Status * Because of a physical, mental, or emotional condition, do you have serious difficulty concentrating, remembering, or making decisions? (5 years old or older) Answer Entry Date Author Yes 03/07/2024 3:06 PM EDT Kiki Lang RN documented in this encounter Progress Notes * Pierre Hill, - 08/01/2024 1:14 PM EST SUBJECTIVE: Milagros Mcgraw is a 68 year old female. Chief Complaint Patient presents with Follow Up Pt here for 1m follow up - bed sore on bottom: on going 4m. Washing the area, using Zinc oxide Pt is on Morphine ER and Aspirin for right hip pain - on going about 1 month. Rates pain about 8 Wants to know if she can go back on Aderall. Having a hard time getting daily things done. Gets overwhelmed. HPI: Patient is a 68 year old female with a history of HTN, Chronic pain, Chronic back pain, Chronic left knee pain, left knee replacement, Migraine Headaches, Glaucoma, Lumbar Spinal Stenosis, Attention Deficit Disorder, DDD cervical spine, GERD, SVT, GAsric Bypass to treat Obesity, and Hepatitis C that is here for continued pain. Back pain is unchanged. The pain is in the left low back and radiates down the left thigh. Left knee pain is present at all times and the patient is scheduled for orthopedics evaluation in 07/2024. Chronic pain and myalgias are unchanged. No chest pain or shortness of breath are present. Weight is up weight is down and patient uses Furosemide as needed for leg swelling. BP is up. Patient Active Problem List Diagnosis Chronic low back pain Migraine HTN, goal below 140/90 Primary open angle glaucoma (POAG) of both eyes, severe stage Attention-deficit hyperactivity disorder, predominantly inattentive type Spinal stenosis of lumbar region with neurogenic claudication DDD (degenerative disc disease), cervical Postmenopausal status, age-related Vitamin D deficiency Controlled substance agreement signed Chronic pain syndrome Gastroesophageal reflux disease without esophagitis Food insecurity Severe episode of recurrent major depressive disorder, without psychotic features (HCC) Gastric bypass status for obesity SVT (supraventricular tachycardia) (HCC) Chronic pain of left knee Status post total left knee replacement Hepatitis C virus infection without hepatic coma Current Outpatient Medications Medication Sig Dispense Refill buPROPion HCl ER (XL) 300 MG Oral Tablet Extended Release 24 Hour (Wellbutrin XL) take 1 tablet by mouth every day in the am with 150mg to make 450mg 90 Tablet 2 Gabapentin 600 MG Oral Tablet (Neurontin) take 2 tablets by mouth three times daily (Patient takingdifferently: Take 3 Tablets by mouth in the morning and 3 Tablets before bedtime.) 540 Tablet 1 EPINEPHrine 0.3 MG/0.3ML Injection Solution Auto-injector (Autoinjector) USE DIRECTED 6 Each 3 Tafluprost (PF) 0.0015 % Ophthalmic Solution (Zioptan) Instill 1 Drop into both eyes at bedtime. Timolol Maleate 0.25 % Ophthalmic Solution (Timoptic) Instill 1 Drop into both eyes in the morning. SUMAtriptan Succinate 100 MG Oral Tablet (Imitrex) Take 1 tablet at onset of migraine may repeat dose 2 hours later as needed for migraine headache maximum 200 mg per 24 hour 10 Tablet 2 buPROPion HCl ER (XL) 150 MG Oral Tablet Extended Release 24 Hour (Wellbutrin XL) Take 1 Tablet by mouth in the morning. 90 Tablet 3 Pepto-Bismol 262 MG Oral Tablet (Bismuth Subsalicylate) Take 2 Tablets by mouth daily as needed forHeartburn (abdominal pain). Pantoprazole Sodium 40 MG Oral Tablet Delayed Release (Protonix) Take 1 Tablet by mouth in the morning and 1 Tablet before bedtime. 120 Tablet 0 Loperamide HCl 2 MG Oral Capsule (Imodium) Take 1 Capsule by mouth as needed for Diarrhea. Lactase 3000 UNIT Oral Tablet (Lactaid) Take 1 Tablet by mouth as needed (lactose intolerance). Acetaminophen 500 MG Oral Tablet (Tylenol) Take 1 Tablet by mouth 2 times a day as needed for Pain,Breakthrough (with the morphine dose). (Up to 3000 mg per day) Vitamin B-12 1000 MCG Oral Tablet (Cyanocobalamin) Take 1 Tablet by mouth in the morning. Furosemide 20 MG Oral Tablet (Lasix) Take 1 Tablet by mouth in the morning. 100 Tablet 3 Morphine Sulfate ER 15 MG Oral Tablet Extended Release (Ms Contin) Take 1 Tablet by mouth in the morning and 1 Tablet before bedtime. 60 Tablet 0 Multivitamin Gummies Adult Oral Tablet Chewable Take 1 Tablet by mouth in the morning. DULoxetine HCl 20 MG Oral Capsule Delayed Release Particles (Cymbalta) Take 2 Capsules by mouth in the morning. Do not cut, crush or chew. 200 Capsule 3 Triamcinolone Acetonide 0.1 % External Ointment (Aristocort) Apply topically to affected area 2 times a day. To affected area. 30 g 1 No current facility-administered medications for this visit. The patient's medication list was reviewed and updated as needed. Past Medical History: Diagnosis Date Attention-deficit hyperactivity disorder, predominantly inattentive type 03/14/2024 Chronic low back pain 03/04/2020 Chronic pain syndrome 04/08/2024 DDD (degenerative disc disease), cervical 03/14/2024 Depression Gastric bypass status for obesity 06/24/2024 Gastroesophageal reflux disease without esophagitis 04/08/2024 GI bleed Hypertension Migraine 03/04/2020 Personal history of gastric bypass Severe episode of recurrent major depressive disorder, without psychotic features ([facility]) 06/24/2024 Spinal stenosis of lumbar region with neurogenic claudication 03/14/2024 Status post total left knee replacement 06/24/2024 SVT (supraventricular tachycardia) ([facility]) 06/24/2024 Upper gastrointestinal bleed 03/04/2020 historical Past Surgical History: Procedure Laterality Date ARTHROPLASTY KNEE TOTAL Left EGD, FLEXIBLE, DIAGNOSTIC N/A 03/05/2020 ESOPHAGOGASTRODUODENOSCOPY (EGD), FLEXIBLE, TRANSORAL, DIAGNOSTIC performed by Cruz Cano DO at [facility] GASTRIC BYPASS FOR OBESITY 2009 MISCELLANEOUS ORDER Right Ankle fracture repair PARTIAL HYSTERECTOMY OH APPENDECTOMY N/A OH ARTHROPLASTY GLENOHUMERAL JOINT TOTAL SHOULDER Right OH CHOLECYSTECTOMY TOTAL HIP REPLACEMENT & PROSTHESIS Right Review of patient's allergies indicates: Allergen Reactions Bee Venom Anaphylaxis Other reaction(s): Other (document details in comments), Unspecified anaphylasis Sulfamethoxazole-Trimethoprim Anaphylaxis and Hives Other reaction(s): Other (document details in comments) Ciprofloxacin Other reaction(s): Other (See Comments) nightmares Milk (Cow) Other reaction(s): Other (See Comments) Bloating, IBS Other Allergy (See Comments) Adhesive Tape Review of Systems Constitutional: Positive for fatigue. Negative for unexpected weight change. HENT: Negative for congestion, sore throat and trouble swallowing. Respiratory: Negative for cough, shortness of breath and wheezing. Cardiovascular: Negative for chest pain, palpitations and leg swelling. Gastrointestinal: Negative for abdominal pain, blood in stool, constipation, diarrhea, nausea and vomiting. Genitourinary: Negative for dysuria, frequency and hematuria. Musculoskeletal: Positive for arthralgias, back pain, gait problem, myalgias and neck pain. Neurological: Negative for dizziness, syncope and headaches. Psychiatric/Behavioral: Positive for decreased concentration. Negative for dysphoric mood and sleepdisturbance. OBJECTIVE: BP 154/84 (BP Site: Left Arm, BP Position: Sitting, BP Cuff Size: Regular) | Pulse 73 | Temp 98.5 F (36.9 C) | Ht 5' 4" (1.626 m) | Wt 192 lb 3.2 oz (87.2 kg) | LMP (LMP Unknown) | SpO2 98% | BMI32.99 kg/m | BSA 1.98 m Physical Exam Vitals and nursing note reviewed. Exam conducted with a feed preparation operator present. Constitutional: General: She is not in acute distress. Appearance: Normal appearance. She is not toxic-appearing. HENT: Head: Normocephalic and atraumatic. Cardiovascular: Rate and Rhythm: Normal rate and regular rhythm. Heart sounds: Normal heart sounds. No murmur heard. No gallop. Pulmonary: Effort: Pulmonary effort is normal. Breath sounds: Normal breath sounds. No wheezing, rhonchi or rales. Abdominal: General: Bowel sounds are normal. There is no distension. Palpations: Abdomen is soft. Tenderness: There is no abdominal tenderness. Musculoskeletal: Right lower leg: No edema. Left lower leg: No edema. Skin: Comments: Area of dry skin on left guteal fold. No ulceration is presnet Neurological: Mental Status: She is alert and oriented to person, place, and time. Mental status is at baseline. Gait: Gait abnormal. Psychiatric: Attention and Perception: She is inattentive. Mood and Affect: Mood is anxious and depressed. PLAN AND ASSESSMENT: HTN, goal below 140/90 (Primary) Repeat BP in 1 month Chronic pain syndrome - ADULT/PEDS PSYCHIATRY REFERRAL OP Continue Morphine ER, Gabapentin, and Duloxetine Spinal stenosis of lumbar region with neurogenic claudication - DULoxetine HCl 20 MG Oral Capsule Delayed Release Particles (Cymbalta); Take 2 Capsules by mouthin the morning. Do not cut, crush or chew. Severe episode of recurrent major depressive disorder, without psychotic features (HCC) - ADULT/PEDS PSYCHIATRY REFERRAL OP Continue Bupropion ER Increase Duloxetine to 40 mg daily Status post total left knee replacement Chronic left knee pain unchanged Patient scheduled with Orthopedics for possible joint loosening Vitamin D deficiency Continue Vitamin D SVT (supraventricular tachycardia) (HCC) Gastroesophageal reflux disease without esophagitis Continue Pantoprazole Gastric bypass status for obesity - FOLIC ACID; Future; Expected date: 08/01/2024 - IRON SCREEN, INCLUDING TIBC; Future; Expected date: 08/01/2024 - FERRITIN; Future; Expected date: 08/01/2024 - VITAMIN B1 (THIAMINE), BLOOD, LC/MS/MS; Future; Expected date: 08/01/2024 - FOLIC ACID - IRON SCREEN, INCLUDING TIBC - FERRITIN - VITAMIN B1 (THIAMINE), BLOOD, LC/MS/MS Chronic pain of left knee Attention-deficit hyperactivity disorder, predominantly inattentive type - ADULT/PEDS PSYCHIATRY REFERRAL OP Hepatitis C virus infection without hepatic coma, unspecified chronicity - HEPATITIS C RNA QUANTITATIVE; Future; Expected date: 08/01/2024 - HEPATITIS C RNA QUANTITATIVE Skin lesion Area of dry skin. No ulceration is present. Follow Up: Return in about 1 month (around 09/01/2024), or if symptoms worsen or fail to improve. Pierre Hill DO 1:14 PM 08/01/2024 documented in this encounter Nursing Notes * Constance Nino CCMA - 08/01/2024 11:35 AM EST Chief Complaint Patient presents with Follow Up Pt here for 1m follow up - bed sore on bottom: on going 4m. Washing the area, using Zinc oxide Pt is on Morphine ER and Aspirin for right hip pain - on going about 1 month. Rates pain about 8 Wants to know if she can go back on Aderall. Having a hard time getting daily things done. Gets overwhelmed. Patient has been verbally educated on the need or importance of Breast Cancer Screening, Dexa Scan,and Shingles Vaccine and has declined topic(s). documented in this encounter Plan of Treatment Upcoming Encounters Date Type Department Care Team (Late st Contact Info) Description 08/04/2024 10:30 AM EST Office Visit Orthopaedics [facility] [address] [place] [phone] Sergio Thomas, [address] [place] [address] 08/12/2024 2:00 PM EDT Office Visit Orthopaedics Spine Surgery [facility] [address] [place] [phone] Hallie Faria CRNP [address] [place] [phone] 08/31/2024 11:00 AM EDT Office Visit Pharmacy, [facility] [address] [phone] [facility] [address] [place] [id number] 09/08/2024 12:30 PM EDT Office Visit Orthopaedics [facility] [address] [place] [phone] Sergio Thomas, [address] [place] [address] 09/19/2024 11:20 AM EDT Office Visit Family Practice [address] [place] [address] [address] [place] [phone] Pierre Hill, [address] [place] [address] 10/07/2024 10:30 AM EDT Office Visit Otolaryngology [facility] [address] [facility] [place] [address] Nanci Schwarz MD [address] [place] [address] Jovanna Salcedo Au.D. [address] [facility] [place] [address] 10/14/2024 11:45 AM EDT Office Visit Cardiology, [facility] [address] [facility] [place] [address] Leighann Lilly, DO [address] [facility] [address] Pending Results Name Type Priority Associated Diagnoses Date /Time HEPATITIS C RNA QUANTITATIVE Lab Routine Hepatitis C virus infection without hepatic coma, unspecified chronicity 08/01/2024 12:16 PM EST FOLIC ACID Lab Routine Gastric bypass status for obesity 08/01/2024 12:16 PM EST IRON SCREEN, INCLUDING TIBC Lab Routine Gastric bypass status for obesity 08/01/2024 12:16 PM EST FERRITIN Lab Routine Gastric bypass status for obesity 08/01/2024 12:16 PM EST VITAMIN B1 (THIAMINE), BLOOD, LC/MS/MS Lab Routine Gastric bypass status for obesity 08/01/2024 12:16 PM EST Scheduled Orders Name Type Priority Associated Diagnoses Orde r Schedule HEPATITIS C RNA QUANTITATIVE Lab Routine Hepatitis C virus infection without hepatic coma, unspecified chronicity Expected: 08/01/2024 (Approximate), Expires: 08/01/2025 FOLIC ACID Lab Routine Gastric bypass status for obesity Expected: 08/01/2024 (Approximate), Expires: 08/01/2025 IRON SCREEN, INCLUDING TIBC Lab Routine Gastric bypass status for obesity Expected: 08/01/2024 (Approximate), Expires: 08/01/2025 FERRITIN Lab Routine Gastric bypass status for obesity Expected: 08/01/2024 (Approximate), Expires: 08/01/2025 VITAMIN B1 (THIAMINE), BLOOD, LC/MS/MS Lab Routine Gastric bypass status for obesity Expected: 08/01/2024, Expires: 08/01/2025 Scheduled Referrals Name Type Priority Associated Diagnoses Orde r Schedule ADULT/PEDS PSYCHIATRY REFERRAL OP Referral Within 10 days (routine) Chronic pain syndrome Severe episode of recurrent major depressive disorder, 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, predominantly inattentive type Ordered: 08/01/2024 Health Maintenance Due Date Last Done Comments DXA Scan 1956 Cologuard 2001 Colonoscopy 2001 Sigmoidoscopy 2001 Zoster Vaccines (1 of 2) 2006 Colorectal Cancer Screening 06/26/2010 Fecal Occult Blood Test 06/26/2010 06/26/2009 Mammogram 09/28/2012 09/29/2011 Adult Wellness Visit 2022 COVID-19 Vaccine ( season) 2024 03/14/2024, 09/23/2022, 08/31/2022, Additional history exists GFR 06/24/2025 06/24/2024, 12/2023, 03/07/2024, Additional history exists Depression Monitoring 06/27/2025 06/27/2024, 025 Albumin/Creatinine Ratio 11/18/2026 11/19/2023 Diabetes Screening 06/24/2027 06/24/2024, 1 , 03/07/2024, Additional history exists DTap/Tdap Vaccines (2 - Td or Tdap) 02/24/2029 02/24/2019 Lipid Panel 06/24/2029 06/24/2024, 03/01, 03/05/2021 Influenza Vaccine (FLU shot) Completed , 02/24/2019, 03/03/2017, Additional history exists Pneumococcal Vaccine: 50+ Years Completed 06/24/2024, 05/23/2015, 02/16/2014, Additional history exists HPV (Gardasil) Vaccine Aged Out No lo nger eligible based on patient's age to complete this topic Hepatitis B Vaccine Aged Out No longe r eligible based on patient's age to complete this topic MENINGOCOCCAL (MENACTRA/MENVEO) Aged Out No longer eligible based on patient's age to complete this topic Meningitis B Vaccine (Bexsero/Trumemba) Aged Out No longer eligible based on patient's age to complete this topic documented as of this encounter Medical Devices Not on filedocumented as of this encounter Visit Diagnoses Diagnosis HTN, goal below 140/90- Primary Unspecified essential hypertension Chronic pain syndrome Spinal stenosis of lumbar region with neurogenic claudication Spinal stenosis, lumbar region, with neurogenic claudication Severe episode of recurrent major depressive disorder, without psychotic features (HCC) Status post total left knee replacement Vitamin D deficiency Unspecified vitamin D deficiency SVT (supraventricular tachycardia) (HCC) Other specified cardiac dysrhythmias Gastroesophageal reflux disease without esophagitis Esophageal reflux Gastric bypass status for obesity Bariatric surgery status Chronic pain of left knee Pain in joint, lower leg Attention-deficit hyperactivity disorder, predominantly inattentive type Attention deficit disorder without mention of hyperactivity Hepatitis C virus infection without hepatic coma, unspecified chronicity Skin lesion Unspecified disorder of skin and subcutaneous tissue documented in this encounter Advance Directives * Full Code (Latest Code Status on File) Date Activated Date Inactivated Comments 03/07/2024 2:08 PM 03/08/2024 9:35 PM This order r eflects the patients wishes and were consensually agreed upon. Question Answer Comments Discussion of Advance Directives occurred with: Patient * Full Code Date Activated Date Inactivated Comments 03/04/2020 5:15 PM 03/06/2020 7:49 PM This order r eflects the patients wishes and were consensually agreed upon. (Per discussion at referring hospital) Question Answer Comments Discussion of Advance Directives occurred with: Patient Does the patient have a Living Will? No Does the patient have Health Care Power of Attor diallo? No Care Teams General Operator Relationship Specialty Start Date End Date Pierre Hill DO [address] [facility] [place] [address] PCP - General Internal Medicine 06/24/24 documented as of this encounter
--- OUTSIDE RECORDS SUMMARY | 2024-08-04 08:58 | External Medical Summary ---
Author Name Unknown Address Unknown Organization [id number]:[facility] [address] [facility] [address] Laboratory Report Ordering Provider Test Date Status ROSA MEDRANO 08/01/2024 12:16:45 Final Observation Date Value Abnormality Reference (Units) Status Hep C RNA viral load 08/01/2024 12:16:45 Negative. No HCV RNA detected. Negative. No HCV RNA detected. Final Genetic variant clinical significance [Interpretation] in Blood or Tissue by Molecular genetics method 08/01/2024 12:16:45 The HCV assay is an in vitro nucleic acid amplification test for both the detection and quantitation of hepatitis C virus (HCV) RNA, in human EDTA plasma, of HCV antibody positive or HCV-infected individuals. Specimens containing HCV genotypes 1 to 6 are validated for detection and quantitation in the assay. This assay is intended for use as an aid in the diagnosis of HCV infection in the following populations: individuals who are HCV antibody-positive and with evidence of liver disease, individuals suspected to be actively infected with HCV antibody evidence, and individuals at risk for HCV infection with antibodies to HCV. Detection of HCV RNA indicates that the virus is replicating and therefore is evidence of active infection. This assay is intended for use as an aid in the management of HCV-infected patients undergoing anti-viral therapy. The assay can be used to quantify HCV RNA in serum of patients with chronic HCV infection (HCV antibody-positive), monitor disease progression in chronic HCV infection and response to antiviral therapy and determine cure and detection of relapse after completion of antiviral therapy. The results must be interpreted within the context of all relevant clinical and laboratory findings. This assay has not been approved for use as a screening test for the presence of HCV in blood or blood products. Final Genetic variant clinical significance [Interpretation] in Blood or Tissue by Molecular genetics method 08/01/2024 12:16:45 Final Additional comments [RFC] 08/01/2024 12:16:45 The HCV assay is an in vitro nucleic acid amplification test using an automated system for specimen processing, amplification and detection. Detection of antibodies to HCV (anti-HCV) indicates prior exposure to hepatitis C but does not distinguish between cleared or active infection (i.e where the virus is still replicating). Detection of HCV RNA with the detection of anti-HCV identifies an active hepatitis C infection. The results of HCV RNA testing together with other biochemical and clinical information, may be used to confirm an active HCV infection, measure the level of virus in the blood and assist in HCV prevention counseling, medical care and treatment decision making. The test can quantitate HCV RNA over the reportable range of 15-100,000,000 IU/mL (1.18 log to 8.00 log IU/mL). Final Additional comments [RFC] 08/01/2024 12:16:45 Final Additional comments [RFC] 08/01/2024 12:16:45 The assay was verified and performance characteristics determined by the [facility] at [facility]. This test is used for clinical purposes. Final FDA package insert References section 08/01/2024 12:16:45 1. Doyle P, Favian C, Corinne S: How to Use Virological Tools for the Optimal Management of Chronic Hepatitis C. Liver Int 2011;31 Suppl 1:3-12. Final FDA package insert References section 08/01/2024 12:16:45 2. Centers for Disease Control and Prevention. Testing for HCV Infection: an Update of Guidance for Clinicians and Laboratorians. MMWR Morb Mortal Wkly Rep 2013;62(18):362-365. Final FDA package insert References section 08/01/2024 12:16:45 3. [place] Association for the Study of Liver Diseases and Infectious Diseases Society of [place]: HCV Guidance: Recommendations for Testing, Managing, and Treating Hepatitis C. Accessed December 12, 2016. Available at www.hcvguidelines.org /vzrt-gokyak-[email or web address] Final FDA package insert References section 08/01/2024 12:16:45 Final Performing Location [facility] [address] [facility] [id number]
--- OUTSIDE RECORDS SUMMARY | 2024-08-04 08:58 | External Medical Summary | Summary of Care ---
Author Name Unknown Organization [facility] Address [address] [place] [address] Phone [phone] Care Team Providers Care Spray Applicator Name Role Phone Mitchell Hill DO Primary Care Provider [phone] Reason for Visit * Reason Onset Date Comments Medication Refill 07/28/2024 Encounter Details Date Type Department Care Team ([facility] st Contact Info) Description 07/28/2024 Refill Family Practice [address] [place] [phone] Mitchell Hill DO [address] [place] [address] Chronic pain syndrome; Chronic pain of left knee Allergies Active [...] as of this encounter (statuses as of 07/28/2024) Medications buPROPion HCl ER (XL) 300 MG [...] 1,800 mg Oral BID (.AM/PM), Reported on 07/08/2024 EPINEPHrine 0.3 MG/0.3ML Injection Solution Auto-injector (Autoinjector) [...] 120 Tablet 5 2:26 PM EST 06/13/19 Active Cefuroxime Axetil 500 MG Oral Tablet (Ceftin) Take 1 Tablet by mouth in the morning and 1 Tablet before bedtime. 06/22/19 25 Active Loperamide HCl 2 MG Oral [...] mouth in the morning. 06/28/19 25 Active DULoxetine HCl 20 MG Oral Capsule Delayed Release Particles (Cymbalta)Indica tions:Spinal stenosis of lumbar region with neurogenic claudication Take 1 Capsule by mouth in the morning. Do not cut, crush or chew. 100 Capsule 3 5 11:13 AM EST 07/08/19 25 Active Triamcinolone Acetonide 0.1 % External [...] before bedtime. 60 Tablet 07/28/19 25 Active Morphine Sulfate ER 15 MG Oral Tablet Extended Release (Ms Contin)Indicatio ns:Chronic pain syndrome,Chronic pain of left knee Take 1 Tablet by mouth in the morning and 1 Tablet before bedtime. 60 Tablet 06/24/19 25 025 Discontin ued(Refil l) documented as of this encounter (statuses as of 07/28/2024) Active Problems Problem Noted Date Diagnosed Date [...] 03/14/2024 DDD (degenerative disc disease), cervical 2023 Near syncope 03/07/2024 Chronic low back pain 03/04/2020 Migraine 03/04/2020 HTN, goal below 140/90 03/04/2020 documented as of this encounter (statuses as of 07/28/2024) Resolved Problems Problem Noted Date Diagnosed Date Resolved Date Severe episode of recurrent major depressive disorder, without psychotic features 06/24/2024 Opioid dependence with withdrawal 03/14/2024 06/24/2024 Acute respiratory failure with hypoxia 03/14/2024 03/14/2024 Primary open angle glaucoma (POAG) 03/14/2024 03/21/2024 Overview (03/21/2024): More specified on pl Right eye, severe stage Complicated UTI (urinary tract infection) 03/07/2024 06/24/2024 Upper gastrointestinal bleed 03/04/2020 03/21/2024 Overview (03/21/2024): historical Depression 03/04/2020 06/24/2024 documented as of this encounter (statuses as of 07/28/2024) Immunizations Name Administration Dates Next Due COVID-19 mRNA, LNP-s, No Pre serve, 2-Dose Series (Pfizer) 08/31/2022,08/30/2020,07/30/2020 COVID-19, MRNA-LNP, PF, 30 M CG/0.3 mL, 12 YRS AND ABOVE, IM ([employer]) 03/14/2024 Covid-19, Mrna, Lnp-s, Pf, B ivalent, 30 Mcg, IM, 12 yrs and above (Pfizer) 09/23/2022 Pneumococcal Conjugate Vacc, 13 Valent (Prevnar) 05/23/2015 Pneumococcal Conjugate Vacci ne, 20-valent ([id number]) 06/24/2024 Pneumococcal Polysaccharide PPV23 (Pneumovax) 02/16/2014,04/25/2008 RSV [...] Tobacco: Never Alcohol Use Standard Drinks/Week Comments Not Currently [...] 06/24/2024 Does the household have a re lar source of income? (Household - for ages [...] for ages 0-17 years) Not on file Food Insecurity Answer Date Recorded Do you [...] AM EDT documented as of this encounter Functional Status * Are you [...] 3:06 PM EDT Kiki Lang RN * Because of a physical, mental, or emotional condition, do you have difficulty doing errands alone such as visiting a doctors office or shopping? (15 years old or older) Answer Date of Assessment Author No 03/07/2024 3:06 PM EDT Kiki Lang RN documented as of this encounter Mental Status * Because of a physical, mental, or emotional condition, do you have serious difficulty concentrating, remembering, or making decisions? (5 years old or older) Answer Entry Date Author Yes 03/07/2024 3:06 PM EDT Kiki Lang RN documented in this encounter Miscellaneous Notes * Telephone Encounter - Mitchell Hill DO - 07/28/2024 3:56 PM ESTSigned Prescriptions: Disp Refills Morphine Sulfate ER 15 MG Oral Tablet Exte*60 Tab*0 Sig: Take 1 Tablet by mouth in the morning and 1 Tablet before bedtime.Authorizing Provider: MITCHELL HILL----- * Telephone Encounter - Mitchell Hill DO - 07/28/2024 3:55 PM EST I have reviewed the patients controlled substance dispensing history in the Prescription Drug Monitoring Program in compliance with the [facility] regulations before prescribing a controlled substance. Last Tox Screen Results: Results for orders placed or performed in visit on 06/24/24 PAIN MANAGEMENT DRUG PANEL, URINE W/ INTERPRETATION Result Value Pain Management Interpretation Based on the medication information provided: The positive morphine/codeine screening result is CONSISTENT with morphine use. Confirmatory testing is available upon request. Amphetamines Screen, U Negative Benzodiazepines Screen, U Negative Cannabinoids Screen, U Negative Cocaine Metabolite Screen, U Negative Fentanyl Screen, U Negative Hydrocodone Screen, U Negative Methadone Metabolite Screen, U Negative Morphine/Codeine Screen, U Positive (A) Oxycodone Screen, U Negative Specimen Validity Interpretation Normal Creatinine, U 41 Narrative Cutoff Concentrations: Drug Level Amphetamines 500 ng/mL Benzodiazepines 100 ng/mL Cannabinoids 50 ng/mL Cocaine Metabolite 150 ng/mL Fentanyl 1 ng/mL Hydrocodone / Hydromorphone 300 ng/mL Methadone Metabolite 100 ng/mL Morphine / Codeine 300 ng/mL Oxycodone / Oxymorphone 100 ng/mL Screening results are presumptive and can only be used for medical purposes. Confirmatory testing is available upon request. Results for orders placed or performed in visit on 03/14/24 PAIN MANAGEMENT DRUG PANEL, URINE Result Value Amphetamines Screen, U Negative Benzodiazepines Screen, U Negative Cannabinoids Screen, U Negative Cocaine Metabolite Screen, U Negative Fentanyl Screen, U Negative Hydrocodone Screen, U Negative Methadone Metabolite Screen, U Negative Morphine/Codeine Screen, U Positive (A) Oxycodone Screen, U Negative Specimen Validity Interpretation Normal Creatinine, U 51 Narrative Cutoff Concentrations: Drug Level Amphetamines 500 ng/mL Benzodiazepines 100 ng/mL Cannabinoids 50 ng/mL Cocaine Metabolite 150 ng/mL Fentanyl 1 ng/mL Hydrocodone / Hydromorphone 300 ng/mL Methadone Metabolite 100 ng/mL Morphine / Codeine 300 ng/mL Oxycodone / Oxymorphone 100 ng/mL Screening results are presumptive and can only be used for medical purposes. Confirmatory testing is available upon request. Medication due 07/23/2024 * Telephone Encounter - Natalia Crum [facility] - 07/28/2024 2:52 PM ESTPending Prescriptions: Disp Refills Morphine Sulfate ER 15 MG Oral Tablet Exte*60 Tab*0 Sig: Take 1 Tablet by mouth in the morning and 1 Tablet before bedtime. * Telephone Encounter - Natalia Crum RP - 07/28/2024 2:51 PM EST I have reviewed the patients controlled substance dispensing history in the Prescription Drug Monitoring Program in compliance with the [facility] regulations before prescribing a controlled substance. PDMP checked on 07/28/2024. Pending Prescriptions: Disp Refills Morphine Sulfate ER 15 MG Oral Tablet Ext*60 Tab*0 Sig: Take 1 Tablet by mouth in the morning and 1 Tablet before bedtime. Last Visit: 07/08/2024 (in office), Visit date not found (telemedicine) Next Visit: 08/01/2024 Date medication was last filled: 06/24/24 Date medication is due for refill: 07/23/24 Pharmacy: [id number] [facility] Is this request for a controlled substance? Yes and Urine Drug Screen was completed Toxicology results: Results for orders placed or performed in visit on 06/24/24 PAIN MANAGEMENT DRUG PANEL, URINE W/ INTERPRETATION Result Value Pain Management Interpretation Based on the medication information provided: The positive morphine/codeine screening result is CONSISTENT with morphine use. Confirmatory testing is available upon request. Amphetamines Screen, U Negative Benzodiazepines Screen, U Negative Cannabinoids Screen, U Negative Cocaine Metabolite Screen, U Negative Fentanyl Screen, U Negative Hydrocodone Screen, U Negative Methadone Metabolite Screen, U Negative Morphine/Codeine Screen, U Positive (A) Oxycodone Screen, U Negative Specimen Validity Interpretation Normal Creatinine, U 41 Narrative Cutoff Concentrations: Drug Level Amphetamines 500 ng/mL Benzodiazepines 100 ng/mL Cannabinoids 50 ng/mL Cocaine Metabolite 150 ng/mL Fentanyl 1 ng/mL Hydrocodone / Hydromorphone 300 ng/mL Methadone Metabolite 100 ng/mL Morphine / Codeine 300 ng/mL Oxycodone / Oxymorphone 100 ng/mL Screening results are presumptive and can only be used for medical purposes. Confirmatory testing is available upon request. Results for orders placed or performed in visit on 03/14/24 PAIN MANAGEMENT DRUG PANEL, URINE Result Value Amphetamines Screen, U Negative Benzodiazepines Screen, U Negative Cannabinoids Screen, U Negative Cocaine Metabolite Screen, U Negative Fentanyl Screen, U Negative Hydrocodone Screen, U Negative Methadone Metabolite Screen, U Negative Morphine/Codeine Screen, U Positive (A) Oxycodone Screen, U Negative Specimen Validity Interpretation Normal Creatinine, U 51 Narrative Cutoff Concentrations: Drug Level Amphetamines 500 ng/mL Benzodiazepines 100 ng/mL Cannabinoids 50 ng/mL Cocaine Metabolite 150 ng/mL Fentanyl 1 ng/mL Hydrocodone / Hydromorphone 300 ng/mL Methadone Metabolite 100 ng/mL Morphine / Codeine 300 ng/mL Oxycodone / Oxymorphone 100 ng/mL Screening results are presumptive and can only be used for medical purposes. Confirmatory testing is available upon request. Please approve if appropriate. Natalia Lentz Clinical Pharmacist [facility] ([facility]) [phone] 07/28/2024, 2:51 PM * Telephone Encounter - Neha Alegria PHARM Tech - 07/28/2024 2:43 PM EST Pt will be out of rx tomorrow. Did you pend patient's preferred pharmacy and medication before forwarding?yes Pharmacy: [id number] Pending Prescriptions: Disp Refills Morphine Sulfate ER 15 MG Oral Tablet Ext*60 Tab*0 Sig: Take 1 Tablet by mouth in the morning and 1 Tablet before bedtime. Last Visit: 07/08/2024 (in office), Visit date not found (telemedicine) Next Visit: 08/01/2024 If no future appointments scheduled, and last appointment is greater than a year ago, please schedule patient for a follow-up appointment Last date the medication was ordered: 06/24/2024 Is this request for a controlled substance?Yes, What was the last refill date 06/24/2024 w/ and dosage 15 and Urine Drug Screen was completed Urine Drug Screen: Results for orders placed or performed in visit on 06/24/24 PAIN MANAGEMENT DRUG PANEL, URINE W/ INTERPRETATION Result Value Pain Management Interpretation Based on the medication information provided: The positive morphine/codeine screening result is CONSISTENT with morphine use. Confirmatory testing is available upon request. Amphetamines Screen, U Negative Benzodiazepines Screen, U Negative Cannabinoids Screen, U Negative Cocaine Metabolite Screen, U Negative Fentanyl Screen, U Negative Hydrocodone Screen, U Negative Methadone Metabolite Screen, U Negative Morphine/Codeine Screen, U Positive (A) Oxycodone Screen, U Negative Specimen Validity Interpretation Normal Creatinine, U 41 Narrative Cutoff Concentrations: Drug Level Amphetamines 500 ng/mL Benzodiazepines 100 ng/mL Cannabinoids 50 ng/mL Cocaine Metabolite 150 ng/mL Fentanyl 1 ng/mL Hydrocodone / Hydromorphone 300 ng/mL Methadone Metabolite 100 ng/mL Morphine / Codeine 300 ng/mL Oxycodone / Oxymorphone 100 ng/mL Screening results are presumptive and can only be used for medical purposes. Confirmatory testing is available upon request. Results for orders placed or performed in visit on 03/14/24 PAIN MANAGEMENT DRUG PANEL, URINE Result Value Amphetamines Screen, U Negative Benzodiazepines Screen, U Negative Cannabinoids Screen, U Negative Cocaine Metabolite Screen, U Negative Fentanyl Screen, U Negative Hydrocodone Screen, U Negative Methadone Metabolite Screen, U Negative Morphine/Codeine Screen, U Positive (A) Oxycodone Screen, U Negative Specimen Validity Interpretation Normal Creatinine, U 51 Narrative Cutoff Concentrations: Drug Level Amphetamines 500 ng/mL Benzodiazepines 100 ng/mL Cannabinoids 50 ng/mL Cocaine Metabolite 150 ng/mL Fentanyl 1 ng/mL Hydrocodone / Hydromorphone 300 ng/mL Methadone Metabolite 100 ng/mL Morphine / Codeine 300 ng/mL Oxycodone / Oxymorphone 100 ng/mL Screening results are presumptive and can only be used for medical purposes. Confirmatory testing is available upon request. Patient Phone Numbers Labs: Lab Results Component Value Date/Time CREAT 0.6 06/24/2024 02:43 PM CREAT 0.6 03/06/2020 07:27 AM POTASSIUM 3.9 06/24/2024 02:43 PM POTASSIUM 3.7 03/06/2020 07:27 AM TSH 1.50 06/24/2024 02:43 PM LDL 81 06/24/2024 02:43 PM ALT 16 06/24/2024 02:43 PM ALT 16 03/04/2020 07:18 PM documented in this encounter Plan of Treatment Upcoming Encounters Date Type Department Care Team (Late st Contact Info) Description 08/01/2024 11:20 AM EST Office Visit Family Practice [address] [place] [address] Mitchell Hill, DO [address] [place] [address] 08/04/2024 10:30 AM EST Office Visit Orthopaedics [facility] [address] [place] [phone] Sergio Thomas, DO [address] [place] [address] 08/12/2024 2:00 PM EDT Office Visit Orthopaedics Spine Surgery [facility] [address] [place] [phone] Hallie Faria CRNP [address] [place] [address] 08/31/2024 11:00 AM EDT Office Visit Pharmacy, [facility] [address] [place] [address] [facility] [address] [place] [address] 09/08/2024 12:30 PM EDT Office Visit Orthopaedics [facility] [address] [place] [phone] Sergio Thomas, DO [address] [place] [address] 10/07/2024 10:30 AM EDT Office Visit Otolaryngology [facility] [address] [place] [address] Nanci Schwarz MD [address] [place] [address] Jovanna Salcedo Au.D. [address] [place] [address] 10/14/2024 11:45 AM EDT Office Visit Cardiology, [facility] [address] [place] [address] Leighann Lilly, [address] [place] [address] Health Maintenance Due Date Last Done Comments [...] as of this encounter Visit Diagnoses Diagnosis Chronic pain syndrome Chronic pain of left knee Pain in [...] Power of Attor diallo? No Care Teams Spray Applicator Relationship Specialty Start Date End Date Mitchell Hill DO [address] [place] [address] PCP - General Internal Medicine 06/24/24 documented as of this encounter
--- OUTSIDE RECORDS SUMMARY | 2024-08-04 08:58 | External Medical Summary | Summary of Care ---
Author Name Unknown Organization [facility] Address [address] [place] [address] Phone [phone] Care Team Providers Care Hand Binder Cutter Name Role Phone Pierre Hill DO Primary Care Provider [phone] Reason for Referral * Evaluate & Treat - Unlimited Visits (Within 30 days (routine)) - Authorized Specialty Diagnoses / Procedures Referred By Dmitri pitts Referred To Contact Physical Therapy / Physical Medicine And Rehab Diagnoses Knee pain, left Pierre Hill DO [address] [place] [address] Phone: tel: fax: Referral ID Status Reason Start Date Expiration Date Visits Requested Visits Authorized [id number] Authorized Specialty Services Required 07/13/2024 [id number] Question Answer Referral Priority Within 30 days (routine) Where should this appointment be scheduled? Donna Comments [facility] Reason for Visit * Reason Onset Date Comments Referral 07/12/2024 Encounter Details Date Type Department Care Team ([facility] st Contact Info) Description 07/12/2024 Telephone Family Practice [facility] [address] [place] [address] Pierre Hill DO [address] [place], [place] [phone] Referral Allergies Active Allergy Reactions Criticality Noted Date [...] as of this encounter (statuses as of 07/14/2024) Medications buPROPion HCl ER (XL) 300 MG Oral Tablet Extended Release 24 Hour (Wellbutrin XL) take 1 tablet by mouth every day in the am with 150mg to make 450mg 90 Tablet 2 07/13/2024 12:05 PM EST 4 Active Gabapentin 600 MG Oral Tablet (Neurontin) take 2 tablets by mouth three times daily 540 Tablet 1 06/20/2024 12:01 PM EST 4 Active Additional Information Patient taking differently: 1,800 mg Oral BID (.AM/PM), Reported on 07/08/2024 EPINEPHrine 0.3 MG/0.3ML Injection Solution Auto-injector (Autoinjector) USE DIRECTED 6 Each 3 4 Active Tafluprost (PF) 0.0015 % Ophthalmic Solution (Zioptan) Instill 1 Drop into both eyes at bedtime. Active Timolol Maleate 0.25 % Ophthalmic Solution (Timoptic) Instill 1 Drop into both eyes in the morning. 4 Active SUMAtriptan Succinate 100 MG Oral Tablet (Imitrex) Take 1 tablet at onset of migraine may repeat dose 2 hours later as needed for migraine headache maximum 200 mg per 24 hour 10 Tablet 2 4 Active buPROPion HCl ER (XL) 150 MG Oral Tablet Extended Release 24 Hour (Wellbutrin XL)Indications:E pisode of recurrent major depressive disorder, unspecified depression episode severity (HCC) Take 1 Tablet by mouth in the morning. 90 Tablet 3 5 Active Pepto-Bismol 262 MG Oral Tablet (Bismuth Subsalicylate) Take 2 Tablets by mouth daily as needed for Heartburn (abdominal pain). Active Pantoprazole Sodium 40 MG Oral Tablet Delayed Release (Protonix)Indica tions:Gastroesop hageal reflux disease without esophagitis Take 1 Tablet by mouth in the morning and 1 Tablet before bedtime. 120 Tablet 06/14/2024 2:26 PM EST 5 Active Cefuroxime Axetil 500 MG Oral Tablet (Ceftin) Take 1 Tablet by mouth in the morning and 1 Tablet before bedtime. 5 Active Loperamide HCl 2 MG Oral Capsule [...] (Up to 3000 mg per day) Active Morphine Sulfate ER 15 MG Oral Tablet Extended Release (Ms Contin)Indicatio ns:Chronic pain syndrome,Chronic pain of left knee Take 1 Tablet by mouth in the morning and 1 Tablet before bedtime. 60 Tablet 5 Active Vitamin B-12 1000 MCG Oral Tablet (Cyanocobalamin) Indications:Praveena ike bypass status for obesity Take 1 Tablet by mouth in the morning. 5 Active DULoxetine HCl 20 MG Oral Capsule Delayed Release Particles (Cymbalta)Indica tions:Spinal stenosis of lumbar region with neurogenic claudication Take 1 Capsule by mouth in the morning. Do not cut, crush or chew. 100 Capsule 3 07/12/2024 11:13 AM EST 5 Active Triamcinolone Acetonide 0.1 % External Ointment (Aristocort)Quin cations:Dermatit is Apply topically to affected area 2 times a day. To affected area. 30 g 1 07/12/2024 11:13 AM EST 5 Active Furosemide 20 MG Oral Tablet (Lasix)Indicatio ns:Leg edema Take 1 Tablet by mouth in the morning. 100 Tablet 3 07/12/2024 11:13 AM EST 5 Active documented as of this encounter (statuses as of 07/14/2024) Active Problems Problem Noted Date Diagnosed Date [...] as of this encounter (statuses as of 07/14/2024) Resolved Problems Problem Noted Date Diagnosed Date [...] as of this encounter (statuses as of 07/14/2024) Immunizations Name Administration Dates Next Due COVID-19 mRNA, LNP-s, No Pre serve, 2-Dose Series ([employer]) 08/31/2022,08/30/2020,07/30/2020 COVID-19, MRNA-LNP, PF, 30 M CG/0.3 mL, 12 YRS AND ABOVE, IM ([employer]-Com[employer]) 03/14/2024 Covid-19, Mrna, Lnp-s, Pf, B ivalent, 30 Mcg, IM, 12 yrs and above (Pfizer) 09/23/2022 Pneumococcal Conjugate Vacc, 13 Valent (Prevnar) 05/23/2015 Pneumococcal Conjugate Vacci ne, 20-valent ([id number]) 06/24/2024 Pneumococcal Polysaccharide PPV23 (Pneumovax) 02/16/2014,04/25/2008 RSV [...] No 06/24/2024 Does the household have a [facility] source of income? (Household - for ages [...] of Assessment Author No 03/07/2024 3:06 PM EDKiki Mendez RN documented as of this encounter Mental Status * Because of a physical, mental, or emotional condition, do you have serious difficulty concentrating, remembering, or making decisions? (5 years old or older) Answer Entry Date Author Yes 03/07/2024 3:06 PM EDT Kiki Lang RN documented in this encounter Miscellaneous Notes * Telephone Encounter - Araceli Aggarwal LPN - 07/13/2024 3:31 PM EST Message Faxed to [email or web address] in [place] per request * Addendum Note - Araceli Aggarwal LPN - 07/13/2024 3:19 PM ESTAddended by: ARACELI AGGARWAL on: 07/13/2024 03:19 PM Modules accepted: Orders * Telephone Encounter - Araceli Aggarwal LPN - 07/13/2024 3:19 PM EST Order placed, please assist. Thank you * Telephone Encounter - Sandra Delgado OSA - 07/13/2024 3:11 PM EST Patient called in requesting PT referral for left knee to be sent to [facility] in [facility], she is being seen there for her bback . * Telephone Encounter - Yandy Valentine LPN - 07/12/2024 2:16 PM EST Pt left voicemail asking for PT referral to be sent to [place]. Faxed info as requested. documented in this encounter Plan of Treatment Upcoming Encounters Date Type Department Care Team (Late st Contact Info) Description 07/19/2024 1:40 PM EST Office Visit Family Practice [address] [place] [address], [place] [address] Pierre Hill, DO [address] [place] [address] 08/01/2024 11:20 AM EST Office Visit Family [address] [facility] [place] [address] Pierre Hill, DO [address] [place] [address] 08/04/2024 10:30 AM EST Office Visit Orthopaedics [facility] [address] [place] [phone] Sergio Thomas, DO [address] [place] [address] 08/12/2024 2:00 PM EDT Office Visit Orthopaedics Spine Surgery [facility] [address] [place] [phone] Hallie Faria CRNP [address] [place] [address] 08/31/2024 11:00 AM EDT Office Visit Pharmacy, Health system [address] [facility] [place] [address] [facility] [place] [address] 10/07/2024 10:30 AM EDT Office Visit Otolaryngology Health system [address] [facility] [place] [address] Nanci Schwarz MD [address] [facility] [place] [address] Jovanna Salcedo Au.D. [address] [place] [address] 10/14/2024 11:45 AM EDT Office Visit Cardiology, Health system [address] [facility] [place] [address] [place] Araceli, [address] [place] [phone] Scheduled Referrals Name Type Priority Associated Diagnoses Orde r Schedule PHYSICAL THERAPY REFERRAL OP Referral Within 30 days (routine) Knee pain, left Ordered: 07/13/2024 Health Maintenance Due Date Last Done Comments DXA Scan 1956 Cologuard 2001 Colonoscopy 2001 Sigmoidoscopy 2001 Zoster Vaccines (1 of 2) 2006 Colorectal Cancer Screening 06/26/2010 Fecal Occult Blood Test 06/26/2010 06/26/2009 Mammogram 09/28/2012 09/29/2011 Adult Wellness Visit 2022 GFR 06/24/2025 06/24/2024, 10/0 12/2023, 03/07/2024, Additional history exists Depression Monitoring 06/27/2025 06/27/2024, 025 Albumin/Creatinine Ratio 11/18/2026 11/19/2023 Diabetes Screening 06/24/2027 06/24/2024, 1 , 03/07/2024, Additional history exists DTap/Tdap Vaccines (2 - Td or Tdap) 02/24/2029 02/24/2019 Lipid Panel 06/24/2029 06/24/2024, 03/01, 03/05/2021 COVID-19 Vaccine Completed 03/14/2024, , 08/31/2022, Additional history exists Influenza Vaccine (FLU shot) Completed , 02/24/2019, [...] as of this encounter Visit Diagnoses Diagnosis Knee pain, left- Primary Pain in joint, lower leg documented in [...] Power of Attor diallo? No Care Teams Hand Binder Cutter Relationship Specialty Start Date End Date Pierre Hill DO [address] [place] [address] PCP - General Internal Medicine 06/24/24 documented as of this encounter
--- OUTSIDE RECORDS SUMMARY | 2024-08-04 08:58 | External Medical Summary ---
Author Name Unknown Address Unknown Organization K01:[facility] [place] [address] [place] [address] Laboratory Report Ordering Provider Test Date Status ROSA MEDRANO 08/01/2024 12:16:45 Final Observation Date Value Abnormality Reference (Units ) Status Ferritin 08/01/2024 12:16:45 82 13-150 (ng /mL) Final Postmenopausal women have hi gher ferritin levels than pre-menopausal women. The above reference interval is based on pre-menopausal women. Performing Location [facility] - [address] [place] [address]
--- OUTSIDE RECORDS SUMMARY | 2024-08-04 08:58 | External Medical Summary | Summary of Care ---
Author Name Unknown Organization [facility] Address [address] [place] [address] Phone [phone] Care Team Providers Care Astronautical Engineer Name Role Phone Pierre Hill DO Primary Care Provider [phone] Reason for Referral * Evaluate & Treat - Unlimited Visits (Within 30 days (routine)) - Authorized Specialty Diagnoses / Procedures Referred By Dmitri pitts Referred To Contact Physical Therapy / Physical Medicine And Rehab Diagnoses Knee pain, left Pierre Hlil DO [address] [place] [address] Phone: tel: fax: Referral ID Status Reason Start Date Expiration Date Visits Requested Visits Authorized [id number] Authorized Specialty Services Required 07/13/2024 999 999 Question Answer Referral Priority Within 30 days (routine) Where should this appointment be scheduled? Donna Comments Pheabbix tiki Reason for Visit * Reason Onset Date Comments Referral 07/12/2024 Encounter Details Date Type Department Care Team ([facility] st Contact Info) Description 07/12/2024 Telephone Family Practice [facility] [address] [place] [address] Pierre Hill DO [address] [place], [place] [phone] Referral Allergies Active Allergy Reactions Criticality Noted [...] mRNA, LNP-s, No Pre serve, 2-Dose Series ([employer]) 08/31/2022,08/30/2020,07/30/2020 COVID-19, MRNA-LNP, PF, 30 M CG/0.3 mL, 12 YRS AND ABOVE, IM (PFIZER-Comirnaty) 03/14/2024 Covid-19, Mrna, Lnp-s, Pf, B ivalent, 30 Mcg, IM, 12 yrs and above (Pfizer) 09/23/2022 Pneumococcal Conjugate Vacc, 13 Valent (Prevnar) 05/23/2015 Pneumococcal Conjugate Vacci ne, 20-valent ([id number]) 06/24/2024 Pneumococcal Polysaccharide PPV23 (Pneumovax) 02/16/2014,04/25/2008 RSV [...] No 06/24/2024 Does the household have a [facility] source of income? (Household - for ages [...] 07/13/2024 3:31 PM EST Message Faxed to [employer] in [place] per request * Addendum Note - Araceli [...] for left knee to be sent to [facility] in [facility], she is being seen there for her bback . * Telephone Encounter - Yandy Valentine LPN - 07/12/2024 2:16 PM EST Pt left voicemail asking for PT referral to be sent to [place]. Faxed info as requested. documented in this encounter Plan of Treatment Upcoming Encounters Date Type Department Care Team (Late st Contact Info) Description 07/19/2024 1:40 PM EST Office Visit Family Practice [address] [place] [address], [place] [address] Pierre Hill, DO 293 [place] [address] 08/01/2024 11:20 AM EST Office Visit Family [address] 293 [facility] [place] [address] Pierre Hill, DO [address] [place] [address] 08/04/2024 10:30 AM EST Office Visit Orthopaedics [facility] [address] [place] [phone] Sergio Thomas, DO [address] [place] [address] 08/12/2024 2:00 PM EDT Office Visit Orthopaedics Spine Surgery [facility] [address] [place] [phone] Hallie Faria CRNP [address] [place] [address] 08/31/2024 11:00 AM EDT Office Visit Pharmacy, [facility] 132 [facility] [place] [address] Eliseo [facility] [place] [address] 10/07/2024 10:30 AM EDT Office Visit Otolaryngology [facility] 132 [facility] [place] [address] Nanci Schwarz MD 132 [facility] [place] [address] Jovanna Salcedo Au.D. [address] [place] [address] 10/14/2024 11:45 AM EDT Office Visit Cardiology, [facility] 132 [facility] [place] [address] Leighann Lilly Araceli, [address] [place] [phone] Scheduled Referrals Name Type Priority Associated Diagnoses [...] Power of Attor diallo? No Care Teams Astronautical Engineer Relationship Specialty Start Date End Date Pierre Hill DO [address] [place] [address] PCP - General Internal Medicine 06/24/24 documented as of this encounter
--- OUTSIDE RECORDS SUMMARY | 2024-08-04 08:58 | External Medical Summary ---
Author Name Unknown Address Unknown Organization K01:[facility] [place] [address] [place] [address] Laboratory Report Ordering Provider Test Date Status MITCHELLROSA 08/01/2024 12:16:45 Final Observation Date Value Abnormality Reference (Units ) Status Iron 08/01/2024 12:16:45 23 Below low normal 33-151 (ug/dL) Final Iron-binding capacity 08/01/2024 12:16:45 313 250-425 (ug/dL) Final Transferrin Sat % 08/01/2024 12:16:45 7 Below low normal 15-55 (%) Final Performing Location [facility] [place] [address] [place] [address]
--- OUTSIDE RECORDS SUMMARY | 2024-08-04 08:58 | External Medical Summary | Summary of Care ---
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, predominantly inattentive type Pierre Hill DO [address] [place] [address] Phone: tel: fax: Referral ID Status Reason Start Date Expiration Date Visits Requested Visits Authorized [id number] Authorized Specialty Services Required 08/01/2024 999 999 [...] EST Office Visit Family Practice [address] [place] [address] [place] [address] Pierre Hill, DO [address] [place] [address] HTN, goal below 140/90*; Chronic pain syndrome; [...] mRNA, LNP-s, No Pre serve, 2-Dose Series ([employer]) 08/31/2022,08/30/2020,07/30/2020 COVID-19, MRNA-LNP, PF, 30 M CG/0.3 mL, 12 YRS AND ABOVE, IM ([place] [employer]-Comirnat) 03/14/2024 Covid-19, Mrna, Lnp-s, Pf, B ivalent, 30 Mcg, IM, 12 yrs and above (Pfizer) 09/23/2022 Pneumococcal Conjugate Vacc, 13 Valent (Prevnar) 05/23/2015 Pneumococcal Conjugate Vacci ne, 20-valent ([id number]) 06/24/2024 Pneumococcal Polysaccharide PPV23 (Pneumovax) 02/16/2014,04/25/2008 RSV [...] recurrent major depressive disorder, without psychotic features ([facility]) 06/24/2024 Spinal stenosis of lumbar region with neurogenic claudication 03/14/2024 Status post total left knee replacement 06/24/2024 SVT (supraventricular tachycardia) ([facility]) 06/24/2024 Upper gastrointestinal bleed 03/04/2020 historical Past Surgical History: Procedure Laterality Date ARTHROPLASTY KNEE TOTAL Left EGD, FLEXIBLE, DIAGNOSTIC N/A 03/05/2020 ESOPHAGOGASTRODUODENOSCOPY (EGD), FLEXIBLE, TRANSORAL, DIAGNOSTIC performed by Cruz Cano DO at ENDOSCOPY [facility] GASTRIC BYPASS FOR OBESITY 2009 MISCELLANEOUS ORDER [...] nursing note reviewed. Exam conducted with a datastage architect present. Constitutional: General: She is not in [...] Release Particles (Cymbalta); Take 2 Capsules by mouth in the [...] 08/04/2024 10:30 AM EST Office Visit Orthopaedics [facility] [address] [place] [phone] Sergio Thomas, [address] [place] [address] 08/12/2024 2:00 PM EDT Office Visit Orthopaedics Spine [facility] [address] [place] [phone] Hallie Faria CRNP [address] [place] [address] 08/31/2024 11:00 AM EDT Office Visit Pharmacy, [facility] [address] [place] [address] [facility] [address] [place] [address] 09/08/2024 12:30 PM EDT Office Visit Orthopaedics [facility] [address] [place] [phone] Sergio Thomas, [address] [place] [address] 09/19/2024 11:20 AM EDT Office Visit Family Practice [address] [place] [address] 293 [facility] [place] [address] Pierre Hill, 293 [facility] [place] [address] 10/07/2024 10:30 AM EDT Office Visit [facility] [place] [address] Nanci Schwarz MD 132 [place] [address] Jovanna Salcedo Au.D. 132 [facility] [place] [address] 10/14/2024 11:45 AM EDT Office Visit Cardiology, [facility] [place] [address] Leighann Lilly, DO [address] [facility] [address] Pending Results Name Type Priority Associated Diagnoses [...] Power of Attor diallo? No Care Teams Bleacher Operator Relationship Specialty Start Date End Date Pierre Hill DO 293 [facility] [place] [address] PCP - General Internal Medicine 06/24/24 documented as of this encounter
--- OUTSIDE RECORDS SUMMARY | 2024-08-04 08:58 | External Medical Summary ---
Author Name Unknown Address Unknown Organization K01:[facility] [place] [address] [place] [address] Laboratory Report Ordering Provider Test Date Status ROSA MEDRANO 08/01/2024 12:16:45 Final Observation Date Value Abnormality Reference (Units ) Status Folic Acid 08/01/2024 12:16:45 17.6 >4.5 (ng/ mL) Final Performing Location [facility] [place] [address] [place] [address]
--- OUTSIDE RECORDS SUMMARY | 2024-08-04 08:58 | External Medical Summary | Summary of Care ---
Author Name Unknown Organization [facility] Address [address] [place] [address] Phone [phone] Care Team Providers Care Corporate Tax Manager Name Role Phone Pierre Hill DO Primary Care Provider [phone] Reason for Referral * Evaluate & Treat - Unlimited Visits (Within 30 days (routine)) - Authorized Specialty Diagnoses / Procedures Referred By Dmitri pitts Referred To Contact Physical Therapy / Physical Medicine And Rehab Diagnoses Knee pain, left Pierre Hill DO [address] [place] [address] Phone: tel: fax: Referral ID Status Reason Start Date Expiration Date Visits Requested Visits Authorized [id number] Authorized Specialty Services Required 07/13/2024 999 999 Question Answer Referral Priority Within 30 days (routine) Where should this appointment be scheduled? Donna Comments Pheabbix tiki Reason for Visit * Reason Onset Date Comments Referral 07/12/2024 Encounter Details Date Type Department Care Team ([facility] st Contact Info) Description 07/12/2024 Telephone Family Practice [facility] [address] [place] [address] Pierre Hill DO [address] [place], [place] [phone] Referral Allergies Active Allergy Reactions Criticality Noted [...] mRNA, LNP-s, No Pre serve, 2-Dose Series ([employer]) 08/31/2022,08/30/2020,07/30/2020 COVID-19, MRNA-LNP, PF, 30 M CG/0.3 mL, 12 YRS AND ABOVE, IM (PFIZER-Comirnaty) 03/14/2024 Covid-19, Mrna, Lnp-s, Pf, B ivalent, 30 Mcg, IM, 12 yrs and above (Pfizer) 09/23/2022 Pneumococcal Conjugate Vacc, 13 Valent (Prevnar) 05/23/2015 Pneumococcal Conjugate Vacci ne, 20-valent ([id number]) 06/24/2024 Pneumococcal Polysaccharide PPV23 (Pneumovax) 02/16/2014,04/25/2008 RSV [...] No 06/24/2024 Does the household have a [facility] source of income? (Household - for [...] 07/13/2024 3:31 PM EST Message Faxed to [employer] in [place] per request * Addendum Note - Araceli [...] left knee to be sent to [facility] in [facility], she is being seen there for her bback . * Telephone Encounter - Yandy Valentine LPN - 07/12/2024 2:16 PM EST Pt left voicemail asking for PT referral to be sent to [place]. Faxed info as requested. documented in this encounter Plan of Treatment Upcoming Encounters Date Type Department Care Team (Late st Contact Info) Description 07/19/2024 1:40 PM EST Office Visit Family Practice [address] [place] [address], [place] [address] Pierre Hill, DO 293 [place] [address] 08/01/2024 11:20 AM EST Office Visit Family [address] 293 [place] [address] Pierre Hill, DO 293 [place] [address] 08/04/2024 10:30 AM EST Office Visit Orthopaedics [facility] [address] [place] [phone] Sergio Thomas, DO [address] [place] [address] 08/12/2024 2:00 PM EDT Office Visit Orthopaedics Spine Surgery [facility] [address] [place] [phone] Hallie Faria CRNP [address] [place] [address] 08/31/2024 11:00 AM EDT Office Visit Pharmacy, [facility] 132 [facility] [place] [address] Eliseo [facility] [place] [address] 10/07/2024 10:30 AM EDT Office Visit Otolaryngology [facility] 132 [facility] [place] [address] Nanci Schwarz MD 132 [facility] [place] [address] Jovanna Salcedo Au.D. [address] [place] [address] 10/14/2024 11:45 AM EDT Office Visit Cardiology, [facility] 132 [facility] [place] [address] Leighann Lilly Araceli, [address] [place] [phone] Scheduled Referrals Name Type Priority Associated Diagnoses [...] Power of Attor diallo? No Care Teams Corporate Tax Manager Relationship Specialty Start Date End Date Pierre Hill DO [address] [place] [address] PCP - General Internal Medicine 06/24/24 documented as of this encounter
--- OUTSIDE RECORDS SUMMARY | 2024-08-04 08:58 | External Medical Summary | Summary of Care ---
Author Name Unknown Organization [facility] Address [address] [place] [address] Phone [phone] Care Team Providers Care Service Station Attendant Name Role Phone Pierre Hill DO Primary Care Provider [phone] Reason for Visit * Reason Onset Date Comments Appointment 07/25/2024 Right hip pain Encounter Details Date Type Department Care Team ([facility] st Contact Info) Description 07/25/2024 Telephone Family Practice 65 [facility] [address] [place] [address] Pierre Hill DO [address] [place] [address] Appointment (Right hip pain) Allergies Active Allergy Reactions Criticality Noted Date [...] as of this encounter (statuses as of 07/27/2024) Medications buPROPion HCl ER (XL) 300 MG [...] as of this encounter (statuses as of 07/27/2024) Active Problems Problem Noted Date Diagnosed Date [...] as of this encounter (statuses as of 07/27/2024) Resolved Problems Problem Noted Date Diagnosed Date [...] as of this encounter (statuses as of 07/27/2024) Immunizations Name Administration Dates Next Due COVID-19 mRNA, LNP-s, No Pre serve, 2-Dose Series ([employer]) 08/31/2022,08/30/2020,07/30/2020 COVID-19, MRNA-LNP, PF, 30 M CG/0.3 mL, 12 YRS AND ABOVE, IM ([employer]-Comirnat) 03/14/2024 Covid-19, Mrna, Lnp-s, Pf, B ivalent, 30 Mcg, IM, 12 yrs and above (Pfizer) 09/23/2022 Pneumococcal Conjugate Vacc, 13 Valent (Prevnar) 05/23/2015 Pneumococcal Conjugate Vacci ne, 20-valent ([id number]) 06/24/2024 Pneumococcal Polysaccharide PPV23 (Pneumovax) 02/16/2014,04/25/2008 RSV [...] Author No 03/07/2024 3:06 PM EDT Kiki Lang, RN documented as of this encounter Mental Status * Because of a physical, mental, or emotional condition, do you have serious difficulty concentrating, remembering, or making decisions? (5 years old or older) Answer Entry Date Author Yes 03/07/2024 3:06 PM EDT Kiki Lang RN documented in this encounter Miscellaneous Notes * Telephone Encounter - Flora Epps OSA - 07/27/2024 10:25 AM EST Pt has appt on 08/04 but it's for her R knee. I let her know she can ask questions if she'd like, butideally we would want to schedule her for a separate appt for her hip. Was able to get her on for 09/08 for the hip. She was agreeable to this. * Telephone Encounter - Jacqueline Drew RN - 07/27/2024 10:16 AM EST She is requesting to be seen by an orthopedic surgeon because it is for the right hip, which was replaced in approx 2012. She has transportation issues and needs to be seen at [facility] * Telephone Encounter - Jacqueline Drew RN - 07/25/2024 2:23 PM EST Patient called into PCP office with complaints of right hip pain that radiates down to the top of her thigh. It was replaced in 2012 at [facility] in [place]. Requesting CM to send message to an "experienced doctor" with orthopaedics. She can only be seen at [facility] office due to transportation issues. Please contact patient for scheduling. Thank you. documented in this encounter Plan of Treatment Upcoming Encounters Date Type Department Care Team (Late st Contact Info) Description 08/01/2024 11:20 AM EST Office Visit Family [address] 293 [facility] [place] [address] Pierre Hill, DO 293 [place] [address] 08/04/2024 10:30 AM EST Office Visit Orthopaedics [facility] [address] [place] [phone] Sergio Thomas, DO [address] [place] [address] 08/12/2024 2:00 PM EDT Office Visit Orthopaedics Spine Surgery [facility] [address] [place] [phone] Hallie Faria CRNP [address] [place] [address] 08/31/2024 11:00 AM EDT Office Visit Pharmacy, [facility] 132 [facility] [place] [address] [facility] 132 [facility] [place] [address] 09/08/2024 12:30 PM EDT Office Visit Orthopaedics [facility] [address] [place] [phone] Sergio Thomas, DO [address] [place] [address] 10/07/2024 10:30 AM EDT Office Visit Otolaryngology [facility] [address] [place] [address] Nanci Schwarz MD [address] [place] [address] Jovanna Salcedo Au.D. [address] [place] [address] 10/14/2024 11:45 AM EDT Office Visit Cardiology, [facility] [address] [place] [address] Leighann Lilly, [address] [place] [phone] Health Maintenance Due Date Last Done Comments [...] Power of Attor diallo? No Care Teams Service Station Attendant Relationship Specialty Start Date End Date Pierre Hill DO [address] [place] [address] PCP - General Internal Medicine 06/24/24 documented as of this encounter
--- OUTSIDE RECORDS SUMMARY | 2024-08-04 08:58 | External Medical Summary | Summary of Care ---
Author Name Unknown Organization [facility] Address [address] [place] [address] Phone [phone] Care Team Providers Care Technology Teacher Name Role Phone Pierre Hill DO Primary Care Provider [phone] Reason for Referral * Evaluate & Treat - Unlimited Visits (Within 30 days (routine)) - Authorized Specialty Diagnoses / Procedures Referred By Dmitri pitts Referred To Contact Physical Therapy / Physical Medicine And Rehab Diagnoses Knee pain, left Pierre Hill DO [address] [place] [address] Phone: tel: fax: Referral ID Status Reason Start Date Expiration Date Visits Requested Visits Authorized [id number] Authorized Specialty Services Required 07/13/2024 999 999 Question Answer Referral Priority Within 30 days (routine) Where should this appointment be scheduled? Donna Comments Pheabbix tiki Reason for Visit * Reason Onset Date Comments Referral 07/12/2024 Encounter Details Date Type Department Care Team ([facility] st Contact Info) Description 07/12/2024 Telephone Family Practice 65 [facility] [address] [place] [address] Pierre Hill DO [address] [place], [place] [phone] Referral Allergies Active Allergy Reactions Criticality Noted [...] mRNA, LNP-s, No Pre serve, 2-Dose Series ([employer]) 08/31/2022,08/30/2020,07/30/2020 COVID-19, MRNA-LNP, PF, 30 M CG/0.3 mL, 12 YRS AND ABOVE, IM (PFIZER-Comirnaty) 03/14/2024 Covid-19, Mrna, Lnp-s, Pf, B ivalent, 30 Mcg, IM, 12 yrs and above (Pfizer) 09/23/2022 Pneumococcal Conjugate Vacc, 13 Valent (Prevnar) 05/23/2015 Pneumococcal Conjugate Vacci ne, 20-valent ([id number]) 06/24/2024 Pneumococcal Polysaccharide PPV23 (Pneumovax) 02/16/2014,04/25/2008 RSV [...] No 06/24/2024 Does the household have a [facility] source of income? (Household - for ages [...] 07/13/2024 3:31 PM EST Message Faxed to [employer] in [place] per request * Addendum Note - Araceli [...] for left knee to be sent to [facility] in [facility], she is being seen there for her bback . * Telephone Encounter - Yandy Valentine LPN - 07/12/2024 2:16 PM EST Pt left voicemail asking for PT referral to be sent to [place]. Faxed info as requested. documented in this encounter Plan of Treatment Upcoming Encounters Date Type Department Care Team (Late st Contact Info) Description 07/19/2024 1:40 PM EST Office Visit Family Practice [address] [place] [address], [place] [address] Pierre Hill, DO 293 [facility] [place] [address] 08/01/2024 11:20 AM EST Office Visit Family [address] 293 [place] [address] Pierre Hill, DO 293 [facility] [place] [address] 08/04/2024 10:30 AM EST Office Visit Orthopaedics [facility] [address] [place] [phone] Sergio Thomas, DO [address] [place] [address] 08/12/2024 2:00 PM EDT Office Visit Orthopaedics Spine Surgery [facility] [address] [place] [phone] Hallie Faria CRNP [address] [place] [address] 08/31/2024 11:00 AM EDT Office Visit Pharmacy, [facility] 132 [facility] [place] [address] Eliseo [facility] [place] [address] 10/07/2024 10:30 AM EDT Office Visit Otolaryngology [facility] 132 [facility] [place] [address] Nanci Schwarz MD 132 [facility] [place] [address] Jovanna Salcedo Au.D. [address] [place] [address] 10/14/2024 11:45 AM EDT Office Visit Cardiology, [facility] 132 [facility] [place] [address] Leighann Lilly Araceli, [address] [place] [phone] Scheduled Referrals Name Type Priority Associated Diagnoses [...] Power of Attor diallo? No Care Teams Technology Teacher Relationship Specialty Start Date End Date Pierre Hill DO [address] [place] [address] PCP - General Internal Medicine 06/24/24 documented as of this encounter
--- OUTSIDE RECORDS SUMMARY | 2024-08-04 08:59 | External Medical Summary | Summary of Care ---
Author Name Unknown Organization [facility] Address [address] [place] [address] Phone [phone] Care Team Providers Care Filler Leaf Cutter Long Name Role Phone Pierre Hill DO Primary Care Provider [phone] Reason for Visit * Reason Onset Date Comments Referral 07/12/2024 Encounter Details Date Type Department Care Team ([facility] st Contact Info) Description 07/12/2024 Telephone Family Practice [address] [place] [address] [place] [address] Pierre Hill DO [address] [place] [address] Referral Allergies Active Allergy Reactions Criticality Noted [...] as of this encounter (statuses as of 07/12/2024) Medications buPROPion HCl ER (XL) 300 MG Oral Tablet Extended Release 24 Hour (Wellbutrin XL) take 1 tablet by mouth every day in the am with 150mg to make 450mg 90 Tablet 2 4 Active Gabapentin 600 MG Oral Tablet [...] as of this encounter (statuses as of 07/12/2024) Active Problems Problem Noted Date Diagnosed Date [...] as of this encounter (statuses as of 07/12/2024) Resolved Problems Problem Noted Date Diagnosed Date [...] as of this encounter (statuses as of 07/12/2024) Immunizations Name Administration Dates Next Due COVID-19 mRNA, LNP-s, No Pre serve, 2-Dose Series ([place]) 08/31/2022,08/30/2020,07/30/2020 COVID-19, MRNA-LNP, PF, 30 M CG/0.3 mL, 12 YRS AND ABOVE, IM ([employer]-Comirnat) 03/14/2024 Covid-19, Mrna, Lnp-s, Pf, B ivalent, 30 Mcg, IM, 12 yrs and above ([place]) 09/23/2022 Pneumococcal Conjugate Vacc, 13 Valent (Prevnar) 05/23/2015 Pneumococcal Conjugate Vacci ne, 20-valent ([id number]) 06/24/2024 Pneumococcal Polysaccharide PPV23 (Pneumovax) 02/16/2014,04/25/2008 RSV [...] encounter Miscellaneous Notes * Telephone Encounter - Yandy Valentine LPN - 07/12/2024 2:16 PM EST Pt left voicemail asking for PT referral to be sent to [place]. Faxed info as requested. documented in this encounter Plan of Treatment Upcoming Encounters Date Type Department Care Team (Late st Contact Info) Description 07/19/2024 1:40 PM EST Office Visit Family Practice [address] [place] [address] 293 [place] [address] Pierre Hill, DO [address] [place] [address] 08/01/2024 11:20 AM EST Office Visit Family [address] [place] [address] Pierre Hill, DO [address] [place] [address] 08/04/2024 10:30 AM EST Office Visit Orthopaedics [facility] [address] [place] [phone] Sergio Thomas, DO [address] [place] [address] 08/12/2024 2:00 PM EDT Office Visit Orthopaedics Spine Surgery [facility] [address] [place] [phone] Hallie Faria CRNP [address] [place] [address] 08/31/2024 11:00 AM EDT Office Visit Pharmacy, [facility] [address] [facility] [place] [address] [facility] [place] [address] 10/07/2024 10:30 AM EDT Office Visit Otolaryngology [facility] [address] [facility] [place] [address] Nanci Schwarz MD 132 [facility] [place] [address] Jovanna Salcedo Au.D. [address] [place] [address] 10/14/2024 11:45 AM EDT Office Visit Cardiology, [facility] [address] [facility] [place] [address] Leighann Lilly, [address] [place] [address] Health Maintenance Due Date Last Done Comments DXA Scan 1956 Cologuard 2001 Colonoscopy 2001 Sigmoidoscopy 2001 Zoster Vaccines (1 of 2) 2006 Colorectal Cancer Screening 06/26/2010 Fecal Occult Blood Test 06/26/2010 06/26/2009 Mammogram 09/28/2012 09/29/2011 Adult Wellness Visit 2022 GFR 06/24/2025 06/24/2024, 12/2023, 03/07/2024, Additional history [...] Power of Attor diallo? No Care Teams Filler Leaf Cutter Long Relationship Specialty Start Date End Date Pierre Hill DO [address] [place] [address] PCP - General Internal Medicine 06/24/24 documented as of this encounter
--- OUTSIDE RECORDS SUMMARY | 2024-08-04 08:59 | External Medical Summary | Summary of Care ---
Author Name Unknown Organization [facility] Address [address] [place] [address] Phone [phone] Care Team Providers Care Mental Health Advanced Practice Nurse Name Role Phone Pierre Hill Primary Care Provider [phone] Reason for Visit * Reason Onset Date Comments Referral 07/05/2024 Encounter Details Date Type Department Care Team (Late st Contact Info) Description 07/05/2024 New Patient Triage (RECORD CHANGER ASSEMBLER USE ONLY) Cardiology, [address] [id number] Araceli Joyner, BAIT MAKER [address] [place] [address] Referral Allergies Active Allergy Reactions Criticality Noted [...] as of this encounter (statuses as of 07/05/2024) Medications buPROPion HCl ER (XL) 300 MG [...] 1,800 mg Oral BID (.AM/PM), Reported on 06/24/2024 EPINEPHrine 0.3 MG/0.3ML Injection Solution Auto-injector (Autoinjector) [...] Oral Tablet Extended Release 24 Hour (Wellbutrin XL)Indications: Episode of recurrent major depressive disorder, unspecified depression episode severity (HCC) Take 1 Tablet by mouth in the morning. 90 Tablet 3 5 Active Pepto-Bismol 262 MG Oral Tablet (Bismuth Subsalicylate) Take 2 Tablets by mouth daily as needed for Heartburn (abdominal pain). Active Pantoprazole Sodium 40 MG Oral Tablet Delayed Release (Protonix)Indic ations:Gastroes ophageal reflux disease without esophagitis Take 1 Tablet [...] 15 MG Oral Tablet Extended Release (Ms Contin)Indicati ons:Chronic pain syndrome,Chroni c pain of left knee Take 1 Tablet by mouth in the morning and 1 Tablet before bedtime. 60 Tablet Active Vitamin B-12 1000 MCG Oral Tablet (Cyanocobalamin )Indications:Ga stric bypass status for obesity Take 1 Tablet by mouth in the morning. 5 Active documented as of this encounter (statuses as of 07/05/2024) Active Problems Problem Noted Date Diagnosed Date [...] as of this encounter (statuses as of 07/05/2024) Resolved Problems Problem Noted Date Diagnosed Date [...] as of this encounter (statuses as of 07/05/2024) Immunizations Name Administration Dates Next Due COVID-19 mRNA, LNP-s, No Pre serve, 2-Dose Series ([employer]) 08/31/2022,08/30/2020,07/30/2020 COVID-19, MRNA-LNP, PF, 30 M CG/0.3 mL, 12 YRS AND ABOVE, IM ([email or web address]) 03/14/2024 Covid-19, Mrna, Lnp-s, Pf, B ivalent, 30 Mcg, IM, 12 yrs and above ([employer]) 09/23/2022 Pneumococcal Conjugate Vacc, 13 Valent (Prevnar) 05/23/2015 Pneumococcal Conjugate Vacci ne, 20-valent ([id number]) 06/24/2024 Pneumococcal Polysaccharide PPV23 (Pneumovax) 02/16/2014,04/25/2008 RSV [...] ages 0-17 years) Not on file 06/24/2024 Comments No Sex and Gender Information [...] documented in this encounter Progress Notes * Annette Hill, FAUSTINO - 07/05/2024 8:31 AM EST Images from the original note were not included. New Patient Triage What is the diagnosis/reason for referral?: SVT (supraventricular tachycardia) ([facility]) [I47.10] - Primary Enter order ID here: [id number] Specialty specific documentation: Other Pt was in [facility] ER 03/07/24, Zio ordered but wasn't completed. Referral 06/28/24 from PCP is in regardsto ER visit at [place] 06/21/24. The patient was seen in the ED at [facility] on 06/21/2024 and was treated for SVT Discussed care plan with patient or proxy?: Yes pt via myg msg Communicated with patient on Date (mm/dd/yydaniely): 07/05/24 at Time ([facility]): [id number] APPOINTMENT INFO: 10/04/24 Dr Lilly INFO FROM CARDIAC REFERRAL Referred by PCP Liz EKG/ECHO/ZIO/CARDIAC TESTING Zio was ordered but looks like it was never applied & completed. Recommended in myg to pt that she wear monitor. LABS Results for orders placed or performed in visit on 06/24/24 COMPREHENSIVE METABOLIC PANEL Result Value Ref Range BUN 12 6 - 20 mg/dL CREATININE 0.6 0.5 - 1.0 mg/dL EGFR >90 >=60 mL/min SODIUM 139 135 - 146 mmol/L POTASSIUM 3.9 3.5 - 5.1 mmol/L CHLORIDE 101 98 - 107 mmol/L CO2 24 22 - 32 mmol/L ANION GAP 14 7 - 15 mmol/L GLUCOSE 76 70 - 120 mg/dL Albumin 4.1 3.8 - 5.0 g/dL AST 23 10 - 35 U/L Alkaline Phosphatase 100 35 - 130 U/L Bilirubin, Total 0.3 <=1.2 mg/dL CALCIUM 9.2 8.4 - 10.2 mg/dL Protein 7.1 6.0 - 8.3 g/dL ALT 16 10 - 35 U/L VITAMIN B12 Result Value Ref Range Vitamin B12 399 232 - 1,245 pg/mL LIPID PANEL WITH DIRECT LDL IF TG IS HIGH Result Value Ref Range Triglycerides 80 <=174 mg/dL Cholesterol 202 (H) <200 mg/dL HDL Cholesterol 105 >49 mg/dL Non-HDL Cholesterol 97 <=159 mg/dL LDL Cholesterol 81 <=129 mg/dL TSH WITH FREE T4 IF INDICATED Result Value Ref Range TSH 1.50 0.27 - 4.20 uIU/mL CBC Result Value Ref Range WBC 6.17 4.00 - 10.80 K/uL RBC 4.79 3.85 - 5.15 M/uL HGB 12.5 12.0 - 15.3 g/dL HCT 42.1 36.0 - 45.2 % MCV 87.9 81.5 - 97.5 fL MCH 26.1 27.0 - 34.0 pg MCHC 29.7 32.0 - 36.0 g/dL RDW 17.8 11.5 - 15.5 % PLT 485 (H) 140 - 400 K/uL MPV 8.9 6.6 - 11.1 fL nRBCs 0 <=0 /100 WBCs DIFFERENTIAL, AUTOMATED Result Value Ref Range WBC 6.17 4.00 - 10.80 K/uL Neutrophils % 54.7 40.0 - 75.0 % Lymphocytes % 31.3 18.0 - 42.0 % Monocytes % 8.9 1.0 - 11.0 % Eosinophils % 3.2 0.0 - 6.0 % Basophils % 1.1 0.0 - 2.0 % Immature Granulocytes % 0.8 0.0 - 2.0 % Absolute Neutrophils 3.37 1.80 - 7.70 K/uL Absolute Lymphocytes 1.93 1.00 - 4.80 K/ul Absolute Monocytes 0.55 0.00 - 1.10 K/uL Absolute Eosinophils 0.20 0.00 - 0.70 K/uL Absolute Basophils 0.07 0.00 - 0.20 K/uL Absolute Immature Granulocytes 0.05 0.00 - 0.20 K/uL PAIN MANAGEMENT DRUG PANEL, URINE W/ INTERPRETATION Result Value Ref Range Pain Management Interpretation Based on the medication information provided: The positive morphine/codeine screening result is CONSISTENT with morphine use. Confirmatory testing is available upon request. Amphetamines Screen, U Negative Negative Benzodiazepines Screen, U Negative Negative Cannabinoids Screen, U Negative Negative Cocaine Metabolite Screen, U Negative Negative Fentanyl Screen, U Negative Negative Hydrocodone Screen, U Negative Negative Methadone Metabolite Screen, U Negative Negative Morphine/Codeine Screen, U Positive (A) Negative Oxycodone Screen, U Negative Negative Specimen Validity Interpretation Normal Creatinine, U 41 mg/dL MEDICATIONS Current Outpatient Medications Medication Sig Dispense Refill [...] 1 Tablet before bedtime. 120 Tablet 0 Cefuroxime Axetil 500 MG Oral Tablet (Ceftin) Take 1 Tablet by mouth in the morning and 1 Tablet before bedtime. (Patient not taking: Reported on 06/24/2024) Loperamide HCl 2 MG Oral Capsule (Imodium) Take 1 Capsule by mouth as needed for Diarrhea. Lactase 3000 UNIT Oral Tablet (Lactaid) Take 1 Tablet by mouth as needed (lactose intolerance). Acetaminophen 500 MG Oral Tablet (Tylenol) Take 1 Tablet by mouth 2 times a day as needed for Pain,Breakthrough (with the morphine dose). (Up to 3000 mg per day) Morphine Sulfate ER 15 MG Oral Tablet Extended Release (Ms Contin) Take 1 Tablet by mouth in the morning and 1 Tablet before bedtime. 60 Tablet 0 Vitamin B-12 1000 MCG Oral Tablet (Cyanocobalamin) Take 1 Tablet by mouth in the morning. No current facility-administered medications for this visit. ' documented in this encounter Plan of Treatment Upcoming Encounters Date Type Department Care Team (Late st Contact Info) Description 08/01/2024 11:20 AM EST Office Visit Family Practice [address] [place] [address] 293 [facility] [place] [address] Pierre Hill DO 293 [facility], [place] [address] 08/04/2024 10:30 AM EST Office Visit Orthopaedics [facility] [address] [facility] [place] [phone] Sergio Thomas DO [address] [place] [address] 08/12/2024 2:00 PM EDT Office Visit Orthopaedics Spine Surgery [facility] [address] [place] [phone] Hallie Faria CRNP [address] [facility] [place] [phone] 08/31/2024 11:00 AM EDT Office Visit [facility], [facility] [place] [address] [facility] [address] [place] [address] 10/04/2024 1:00 PM EDT Office Visit Cardiology, [place] [address] [place] [address] Leighann Lilly DO [address] [place] [address] 10/07/2024 10:30 AM EDT Office Visit Otolaryngology [facility] [address] [place] [address] Nanci Schwarz MD [address] [place] [address] Jovanna Salcedo Au.D. [address] [place] [address] Health Maintenance Due Date Last Done Comments DXA Scan 1956 Cologuard 2001 Colonoscopy 2001 Sigmoidoscopy 2001 Zoster Vaccines (1 of 2) 2006 Colorectal Cancer Screening 06/26/2010 Fecal Occult Blood Test 06/26/2010 06/26/2009 Mammogram 09/28/2012 09/29/2011 Adult Wellness Visit 2022 GFR 06/24/2025 06/24/2024, 2023, 03/07/2024, Additional history exists Depression Monitoring 06/27/2025 [...] Power of Attor diallo? No Care Teams Mental Health Advanced Practice Nurse Relationship Specialty Start Date End Date Pierre Hill DO [address] [facility] [place] [address] PCP - General Internal Medicine 06/24/24 documented as of this encounter
--- OUTSIDE RECORDS SUMMARY | 2024-08-04 08:59 | External Medical Summary | Summary of Care ---
Author Name Unknown Organization [facility] Address [address] [place] [address] Phone [phone] Care Team Providers Care Fur Glosser Name Role Phone Pierre Hill DO Primary Care Provider [phone] Reason for Visit * Reason Comments Acute Encounter Details Date Type Department Care Team ([facility] st Contact Info) Description 07/08/2024 2:20 PM EST Office Visit Family Practice [facility] [address] [place] [address] Pierre Hill DO [address] [place] [address] Spinal stenosis of lumbar region with neurogenic claudication*; Dermatitis; Chronic pain of left knee; Leg edema; Gastric bypass status for obesity; Chronic pain syndrome; SVT (supraventricular tachycardia) (HCC); Severe episode of recurrent major depressive disorder, without psychotic features (HCC); Status post total left knee replacement; Hepatitis C virus infection without hepatic coma, unspecified chronicity; Gastroesophageal reflux disease without esophagitis; HTN, goal below 140/90 Allergies Active Allergy Reactions Criticality Noted Date [...] as of this encounter (statuses as of 07/08/2024) Medications buPROPion HCl ER (XL) 300 MG Oral Tablet Extended Release 24 Hour (Wellbutrin XL) take 1 tablet by mouth every day in the am with 150mg to make 450mg 90 Tablet 2 Active Gabapentin 600 MG Oral Tablet (Neurontin) take 2 tablets by mouth three times daily 540 Tablet 1 06/20/19 25 12:01 PM EST Active Additional Information Patient taking differently: 1,800 mg Oral BID (.AM/PM), Reported on 07/08/2024 EPINEPHrine 0.3 MG/0.3ML Injection Solution Auto-injector (Autoinjector) USE DIRECTED 6 Each 3 Active Tafluprost (PF) 0.0015 % Ophthalmic Solution (Zioptan) Instill 1 Drop into both eyes at bedtime. Active Timolol Maleate 0.25 % Ophthalmic Solution (Timoptic) Instill 1 Drop into both eyes in the morning. Active SUMAtriptan Succinate 100 MG Oral Tablet (Imitrex) Take 1 tablet at onset of migraine may repeat dose 2 hours later as needed for migraine headache maximum 200 mg per 24 hour 10 Tablet 2 Active buPROPion HCl ER (XL) 150 MG Oral Tablet Extended Release 24 Hour (Wellbutrin XL)Indications:E pisode of recurrent major depressive disorder, unspecified depression episode severity (HCC) Take 1 Tablet by mouth in the morning. 90 Tablet 3 Active Pepto-Bismol 262 MG Oral Tablet (Bismuth Subsalicylate) Take 2 Tablets by mouth daily as needed for Heartburn (abdominal pain). Active Pantoprazole Sodium 40 MG Oral Tablet Delayed Release (Protonix)Indica tions:Gastroesop hageal reflux disease without esophagitis Take 1 Tablet by mouth in the morning and 1 Tablet before bedtime. 120 Tablet 06/14/19 25 2:26 PM EST Active Cefuroxime Axetil 500 MG Oral Tablet (Ceftin) Take 1 Tablet by mouth in the morning and 1 Tablet before bedtime. Active Loperamide HCl 2 MG Oral Capsule [...] and 1 Tablet before bedtime. 60 Tablet 025 Active Vitamin B-12 1000 MCG Oral Tablet (Cyanocobalamin) Indications:Praveena ike bypass status for obesity Take 1 Tablet by mouth in the morning. Active DULoxetine HCl 20 MG Oral Capsule Delayed Release Particles (Cymbalta)Indica tions:Spinal stenosis of lumbar region with neurogenic claudication Take 1 Capsule by mouth in the morning. Do not cut, crush or chew. 100 Capsule 3 025 Active Triamcinolone Acetonide 0.1 % External Ointment (Aristocort)Quin cations:Dermatit is Apply topically to affected area 2 times a day. To affected area. 30 g 1 Active Furosemide 20 MG Oral Tablet (Lasix)Indicatio ns:Leg edema Take 1 Tablet by mouth in the morning. 100 Tablet 3 025 Active Arexvy 120 MCG/0.5ML Intramuscular Suspension Reconstituted (RSV PreF3 Vac Recomb Adjuvanted)Indic ations:Need for RSV vaccination Inject 0.5 mL into a large muscle once for 1 dose. 1 Each 06/24/19 25 3:19 PM EST 2024 Discontinued Furosemide 20 MG Oral Tablet (Lasix)Indicatio ns:Leg edema Take 1 Tablet by mouth in the morning. 30 Tablet 11 025 2024 Discontinued(R efill) documented as of this encounter (statuses as of 07/08/2024) Active Problems Problem Noted Date Diagnosed Date [...] as of this encounter (statuses as of 07/08/2024) Resolved Problems Problem Noted Date Diagnosed Date [...] as of this encounter (statuses as of 07/08/2024) Immunizations Name Administration Dates Next Due COVID-19 mRNA, LNP-s, No Pre serve, 2-Dose Series (Harvest) 08/31/2022,08/30/2020,07/30/2020 COVID-19, MRNA-LNP, PF, 30 M CG/0.3 mL, 12 YRS AND ABOVE, IM (PFIZER-Comirnaty) 03/14/2024 Covid-19, Mrna, Lnp-s, Pf, B ivalent, 30 Mcg, IM, 12 yrs and above (Pfizer) 09/23/2022 Pneumococcal Conjugate Vacc, 13 Valent (Prevnar) 05/23/2015 Pneumococcal Conjugate Vacci ne, 20-valent ([id number]) 06/24/2024 Pneumococcal Polysaccharide PPV23 (Pneumovax) 02/16/2014,04/25/2008 RSV [...] Sign Reading Time Taken Comments Blood Pressure 162/80 07/08/2024 2:35 PM EST Pulse 64 07/08/2024 2:35 PM EST Temperature 36.4 C (97.5 F) 07/08/2024 2:35 PM ES T Respiratory Rate 16 07/08/2024 2:35 PM EST Oxygen Saturation 95% 07/08/2024 2:35 PM EST Inhaled Oxygen Concentration - - Weight 90.3 kg (199 lb) 07/08/2024 2:35 PM EST Height 162.6 cm (5' 4") 07/08/2024 2:35 PM EST Body Mass Index 34.16 07/08/2024 2:35 PM EST documented in this encounter Functional Status [...] encounter Progress Notes * Pierre Hill, - 07/08/2024 3:18 PM EST SUBJECTIVE: Milagros Mcgraw is a 68 year old female. Chief Complaint Patient presents with Acute HPI: Patient is a 68 year old female with a history of HTN, Chronic pain, Chronic back pain, Chronic left knee pain, left knee replacement, Migraine Headaches, Glaucoma, Lumbar Spinal Stenosis, Attention Deficit Disorder, DDD cervical spine, GERD, SVT, GAsric Bypass to treat Obesity, and Hepatitis C that is here for bilateral ankle swelling. Back pain is unchanged. Left knee pain is present at all times and the patient is scheduled for orthopedics evaluation in 07/2024. Chronic pain and myalgias are unchanged. No chest pain ro shortness of breath are present. Weight is up. Patient has rash on arms,legs, neck and face for 6 days. Patient Active Problem List Diagnosis Chronic low back pain Migraine HTN, goal below 140/90 Near syncope Primary open angle glaucoma (POAG) of both [...] Auto-injector (Autoinjector) USE DIRECTED 6 Each 3 SUMAtriptan Succinate 100 MG Oral Tablet (Imitrex) [...] Oral Capsule Delayed Release Particles (Cymbalta) Take 1 Capsule by mouth in the morning. Do not cut, crush or chew. 100 Capsule 3 Triamcinolone Acetonide 0.1 % External Ointment (Aristocort) Apply topically to affected area 2 times a day. To affected area. 30 g 1 Furosemide 20 MG Oral Tablet (Lasix) Take 1 Tablet by mouth in the morning. 100 Tablet 3 Tafluprost (PF) 0.0015 % Ophthalmic Solution (Zioptan) Instill 1 Drop into both eyes at bedtime. Timolol Maleate 0.25 % Ophthalmic Solution (Timoptic) Instill 1 Drop into both eyes in the morning. Cefuroxime Axetil 500 MG Oral Tablet (Ceftin) Take 1 Tablet by mouth in the morning and 1 Tablet before bedtime. (Patient not taking: Reported on 06/24/2024) No current facility-administered medications for this visit. [...] recurrent major depressive disorder, without psychotic features ([facility]) 06/24/2024 Spinal stenosis of lumbar region with neurogenic claudication 03/14/2024 Status post total left knee replacement 06/24/2024 SVT (supraventricular tachycardia) ([facility]) 06/24/2024 Upper gastrointestinal bleed 03/04/2020 historical Past Surgical History: Procedure Laterality Date ARTHROPLASTY KNEE TOTAL Left EGD, FLEXIBLE, DIAGNOSTIC N/A 03/05/2020 ESOPHAGOGASTRODUODENOSCOPY (EGD), FLEXIBLE, TRANSORAL, DIAGNOSTIC performed by Cruz Cano DO at [facility]ES[facility] 2009 MISCELLANEOUS ORDER Right Ankle fracture repair PARTIAL HYSTERECTOMY ND APPENDECTOMY N/A ND ARTHROPLASTY GLENOHUMERAL JOINT TOTAL SHOULDER Right ND CHOLECYSTECTOMY TOTAL HIP REPLACEMENT & PROSTHESIS Right [...] Tape Review of Systems Constitutional: Positive for fatigue and unexpected weight change. Negative for appetite change, chills and fever. HENT: Negative for congestion, sore throat and trouble swallowing. Respiratory: Negative for cough, shortness of breath and wheezing. Cardiovascular: Positive for leg swelling. Negative for chest pain and palpitations. Gastrointestinal: Negative for abdominal pain, blood in stool, constipation, diarrhea, nausea and vomiting. Genitourinary: Negative for dysuria, frequency and hematuria. Musculoskeletal: Positive for arthralgias, back pain, gait problem, myalgias and neck pain. Neurological: Negative for dizziness, syncope and headaches. Psychiatric/Behavioral: Negative for confusion, decreased concentration and sleep disturbance. OBJECTIVE: BP 162/80 | Pulse 64 | Temp 97.5 F (36.4 C) | Resp 16 | Ht 5' 4" (1.626 m) | Wt 199 lb (90.3 kg) | LMP (LMP Unknown) | SpO2 95% | BMI 34.16 kg/m | BSA 2.02 m Physical Exam Vitals and nursing note reviewed. Constitutional: General: She is not in acute [...] no abdominal tenderness. Musculoskeletal: Right lower leg: Edema present. Left lower leg: Edema present. Skin: Comments: Maculopapular dermatitis on arms , legs, and neck Neurological: Mental Status: She is alert. Mental status is at baseline. Motor: No weakness. Gait: Gait abnormal. Psychiatric: Mood and Affect: Mood normal. Behavior: Behavior normal. PLAN AND ASSESSMENT: Spinal stenosis of lumbar region with neurogenic claudication (Primary) - Start DULoxetine HCl 20 MG Oral Capsule Delayed Release Particles (Cymbalta); Take 1 Capsule by mouth in the morning. Do not cut, crush or chew. Continue Gabapentin, and Morphine Dermatitis - Start Triamcinolone Acetonide 0.1 % External Ointment (Aristocort); Apply topically to affected area 2 times a day. To affected area. Chronic pain of left knee Patient scheduled to see orthopedics Continue current pain medications. Leg edema - Start Furosemide 20 MG Oral Tablet (Lasix); Take 1 Tablet by mouth in the morning. Gastric bypass status for obesity Chronic pain syndrome Start Duloxetine Continue Gabapentin SVT (supraventricular tachycardia) (HCC) Severe episode of recurrent major depressive disorder, without psychotic features (HCC) Continue Bupropion ER Start Duloxetine Status post total left knee replacement Hepatitis C virus infection without hepatic coma, unspecified chronicity Treated and cured Gastroesophageal reflux disease without esophagitis Continue Pantoprazole HTN, goal below 140/90 Follow Up: Return in about 1 week (around 07/15/2024), or if symptoms worsen or fail to improve. Pierre Hill DO 3:18 PM 07/08/2024 documented in this encounter Nursing Notes * Araceli Aggarwal LPN - 07/08/2024 2:35 PM EST Patient states both feet are swollen, L>R. States increased left knee pain--does not see ortho as of yet--has appt in July documented in this encounter Plan of Treatment Upcoming Encounters Date Type Department Care Team (Late st Contact Info) Description 07/19/2024 1:40 PM EST Office Visit Family Practice [address] [place] [address] [address] [place] [address] Pierre Hill, DO 293 [place] [address] 08/01/2024 11:20 AM EST Office Visit Family Practice [facility] [address] [facility], [place] [address] Pierre Hill, DO [address] [facility], [place] [address] 08/04/2024 10:30 AM EST Office Visit Orthopaedics [facility] [address] [place] [phone] Sergio Thomas, DO [address] [place] [address] 08/12/2024 2:00 PM EDT Office Visit Orthopaedics Spine Surgery [facility] [address] [place] [phone] Hallie Faria CRNP [address] [place] [phone] 08/31/2024 11:00 AM EDT Office Visit Pharmacy, [facility] [address] [place] [address] Eliseo [facility] [address] [place] [address] 10/07/2024 10:30 AM EDT Office Visit Otolaryngology [facility] [address] [place] [address] Nanci Schwarz MD [address] [place] [address] Jovanna Salcedo Au.D. [address] [place] [address] 10/14/2024 11:45 AM EDT Office Visit Cardiology, [facility] 132 [facility] [place] [address] Leighann Lilly, [address] [facility] [place] [address] Health Maintenance Due Date Last Done Comments [...] as of this encounter Visit Diagnoses Diagnosis Spinal stenosis of lumbar region with neurogenic claudication- Primary Spinal stenosis, lumbar region, with neurogenic claudication Dermatitis Contact dermatitis and other eczema, due to unspecified cause Chronic pain of left knee Pain in joint, lower leg Leg edema Edema Gastric bypass status for obesity Bariatric surgery status Chronic pain syndrome SVT (supraventricular tachycardia) (HCC) Other specified cardiac dysrhythmias Severe episode of recurrent major depressive disorder, without psychotic features (HCC) Status post total left knee replacement Hepatitis C virus infection without hepatic coma, unspecified chronicity Gastroesophageal reflux disease without esophagitis Esophageal reflux HTN, goal below 140/90 Unspecified essential hypertension documented in this encounter Advance Directives * [...] Power of Attor diallo? No Care Teams Fur Glosser Relationship Specialty Start Date End Date Pierre Hill DO [address] [place] [address] PCP - General Internal Medicine 06/24/24 documented as of this encounter
--- OUTSIDE RECORDS SUMMARY | 2024-08-04 08:59 | External Medical Summary | Summary of Care ---
Author Name Unknown Organization [facility] Address [address] [place] [address] Phone [phone] Care Team Providers Care Facing Machine Operator Name Role Phone LizPierre DO Primary Care Provider [phone] Reason for Visit * Reason Onset Date Comments Appointment 07/01/2024 Encounter Details Date Type Department Care Team (Late st Contact Info) Description 07/01/2024 Telephone Orthopaedics [facility] [address] [place] [phone] Breanna Jorge MD [address] [place] [address] Appointment Allergies Active Allergy Reactions Criticality Noted Date [...] as of this encounter (statuses as of 07/02/2024) Medications buPROPion HCl ER (XL) 300 MG Oral Tablet Extended Release 24 Hour (Wellbutrin XL) take 1 tablet by mouth every day in the am with 150mg to make 450mg 90 Tablet 2 03/20/202 4 Active Gabapentin 600 MG Oral Tablet [...] as of this encounter (statuses as of 07/02/2024) Active Problems Problem Noted Date Diagnosed Date [...] as of this encounter (statuses as of 07/02/2024) Resolved Problems Problem Noted Date Diagnosed Date [...] as of this encounter (statuses as of 07/02/2024) Immunizations Name Administration Dates Next Due COVID-19 mRNA, LNP-s, No Pre serve, 2-Dose Series (Virool) 08/31/2022,08/30/2020,07/30/2020 COVID-19, MRNA-LNP, PF, 30 M CG/0.3 mL, 12 YRS AND ABOVE, IM ([facility]) 03/14/2024 Covid-19, Mrna, Lnp-s, Pf, B ivalent, 30 Mcg, IM, 12 yrs and above (Virool) 09/23/2022 Pneumococcal Conjugate Vacc, 13 Valent (Prevnar) 05/23/2015 Pneumococcal Conjugate Vacci ne, 20-valent ([id number]) 06/24/2024 Pneumococcal Polysaccharide PPV23 (Pneumovax) 02/16/2014,04/25/2008 RSV [...] Telephone Encounter - Flora Epps OSA - 07/02/2024 10:59 AM EST Per message from Sarita yesterday, I re-scheduled pt with Dr. Thomas, pt has an appt for 08/04 at 10:30 * Telephone Encounter - Pierre Hill DO - 07/01/2024 11:43 AM EST Patient does not have transportation. See if she can be seen by local orthopedics group. * Telephone Encounter - Breanna Jorge MD - 07/01/2024 11:23 AM EST It appears this patient is scheduled me for chronic left knee pain status post left knee arthroplasty. Please note that I do not treat patient's who have had total knee replacements. This patient haspreviously seen Dr. Thomas and was referred to Dr. Lugo for this problem. She saw Dr. Lugo in the fall and was to follow up after 3 months. Please reschedule with Dr. Lugo accordingly. FYI to the referring doctor documented in this encounter Plan of Treatment Upcoming Encounters Date Type Department Care Team (Late st Contact Info) Description 07/06/2024 3:10 PM EST Home Visit Care Coordination and Integration [address] [place] [address] Silvia Erazo, [employer] Employee Communications Specialist [address] [place] [address] 08/01/2024 11:20 AM EST Office Visit Family Practice [address] [place] [address] [address] [place] [address] Pierre Hill, DO [address] [place] [address] 08/04/2024 10:30 AM EST Office Visit Orthopaedics [facility] [address] [place] [phone] Sergio Thomas, DO [address] [place] [address] 08/12/2024 2:00 PM EDT Office Visit Orthopaedics Spine Surgery [facility] [address] [place] [phone] Hallie Faria CRNP [address] [facility] [place] [phone] 08/31/2024 11:00 AM EDT Office Visit Pharmacy, [facility] [address] [place] [address] Eliseo [facility] [address] [place] [address] 10/04/2024 1:00 PM EDT Office Visit Cardiology, [place] [address] [place] [address] Leighann Lilly DO [address] [place] [address] 10/07/2024 10:30 AM EDT Office Visit Otolaryngology [facility] [address] [place] [address] Nanci Schwarz MD [address] [place] [address] Jovanna Salcedo Au.D. [address] [place] [address] Health Maintenance Due Date Last Done Comments [...] Power of Attor diallo? No Care Teams Facing Machine Operator Relationship Specialty Start Date End Date Pierre Hill DO 293 [place] [address] PCP - General Internal Medicine 06/24/24 documented as of this encounter
--- OUTSIDE RECORDS SUMMARY | 2024-08-04 08:59 | External Medical Summary | Summary of Care ---
Author Name Unknown Organization [facility] Address [address] [place] [address] Phone [phone] Care Team Providers Care Battery Filler Name Role Phone Pierre Hill Primary Care Provider [phone] Reason for Visit * Reason Onset Date Comments Referral 07/05/2024 Encounter Details Date Type Department Care Team (Late st Contact Info) Description 07/05/2024 New Patient Triage (BICYCLE MESSENGER USE ONLY) Cardiology, [address] [phone] Araceli Joyner, BUFFER CHROME [address] [place] [address] Referral Allergies Active Allergy Reactions [...] as of this encounter (statuses as of 07/06/2024) Medications buPROPion HCl ER (XL) 300 MG [...] as of this encounter (statuses as of 07/06/2024) Active Problems Problem Noted Date Diagnosed Date [...] as of this encounter (statuses as of 07/06/2024) Resolved Problems Problem Noted Date Diagnosed Date [...] as of this encounter (statuses as of 07/06/2024) Immunizations Name Administration Dates Next Due COVID-19 mRNA, LNP-s, No Pre serve, 2-Dose Series (Peach) 08/31/2022,08/30/2020,07/30/2020 COVID-19, MRNA-LNP, PF, 30 M CG/0.3 mL, 12 YRS AND ABOVE, IM ([employer]) 03/14/2024 Covid-19, Mrna, Lnp-s, Pf, B ivalent, 30 Mcg, IM, 12 yrs and above (Peach) 09/23/2022 Pneumococcal Conjugate Vacc, 13 Valent (Prevnar) 05/23/2015 Pneumococcal Conjugate Vacci ne, 20-valent ([id number]) 06/24/2024 Pneumococcal Polysaccharide PPV23 (Pneumovax) 02/16/2014,04/25/2008 RSV [...] documented in this encounter Progress Notes * Kalani Landa PA-C - 07/05/2024 7:26 PM EST Does patient need to be seen?: Yes Modality: Office visit Urgency: Within 30 days (routine) Discussed care plan with patient or proxy?: Yes via MyG Communicated with patient on Date (mm/dd/yyyy): 07/05/2024 at [facility] 0915 68 year old female referred by PCP for SVT. Eval in ED at [facility] 06/22/2024. No rhythm strip or EKG toconfirm SVT. HR 150-180 with conversion s/p 6mg and 12mg adenosine. Cardiology did not recommend further tx as SVT infrequent. Zio patch ordered but not completed Agree with application of zio patch prior to appointment Scheduled 10/04/[address] Lilly Appointment is appropriate as scheduled Thank you Kalani Landa PA-C Department of Cardiology, [facility] * Annette HillFAUSTINO - 07/05/2024 8:31 AM EST Images from the original note were not included. New Patient Triage What is the diagnosis/reason for referral?: SVT (supraventricular tachycardia) (HCC) [I47.10] - Primary Enter order ID here: [id number] Specialty specific documentation: Other Pt was in [facility] ER 03/07/24, Zio ordered but wasn't completed. Referral 06/28/24 from PCP is in regardsto ER visit at [place] 06/21/24. The patient was seen in the ED at [facility] on 06/21/2024 and was treated for SVT Discussed care plan with patient or proxy?: Yes pt via myg msg Communicated with patient on Date (mm/dd/yyyy): 07/05/24 at Time ([facility]): 0915 APPOINTMENT INFO: 10/04/24 Dr Lilly INFO FROM [...] 11:20 AM EST Office Visit Family Practice [address] [place] [address] 293 [facility] [place] [address] Pierre Hill, 293 [facility] [address] 08/04/2024 10:30 AM EST Office Visit Orthopaedics [facility] [address] [place] [phone] Sergio Thomas, 132 [facility] [place] [address] 08/12/2024 2:00 PM EDT Office Visit Orthopaedics Spine Surgery [facility] [address] [place] [phone] Hallie Faria CRNP [address] [place] [address] [place] [phone] 08/31/2024 11:00 AM EDT Office Visit Pharmacy, [facility] [address] [place] [address] Eliseo [facility] [place] [address] 10/04/2024 1:00 PM EDT Office Visit Cardiology, [place] [address] [place] [address] [place] [address] Leighann Lilly Araceli, DO [address] [place] [address] 10/07/2024 10:30 AM EDT Office Visit Otolaryngology [facility] [address] [place] [address] Nanci Schwarz MD [address] [place] [address] Jovanna Salcedo Au.D. [address] [place] [address] Health Maintenance Due Date Last Done Comments DXA Scan 1956 Cologuard 2001 Colonoscopy 2001 Sigmoidoscopy 2001 Zoster Vaccines (1 of 2) 2006 Colorectal Cancer Screening 06/26/2010 Fecal Occult Blood Test 06/26/2010 06/26/2009 Mammogram 09/28/2012 09/29/2011 Adult Wellness Visit 2022 GFR 06/24/2025 06/24/2024, 1012/2023, 03/07/2024, Additional history exists Depression Monitoring 06/27/2025 [...] Power of Attor diallo? No Care Teams Battery Filler Relationship Specialty Start Date End Date Pierre Hill DO [address] [place] [address] PCP - General Internal Medicine 06/24/24 documented as of this encounter
--- OUTSIDE RECORDS SUMMARY | 2024-08-04 09:00 | External Medical Summary | Summary of Care ---
Author Name Unknown Organization [facility] Address [address] [place] [address] Phone [phone] Care Team Providers Care Environmental Engineering Assistant Name Role Phone LizPierre DO Primary Care Provider [phone] Encounter Details Date Type Department Care Team (Late st Contact Info) Description 06/30/2024 11:00 AM EST Scheduled Telephone Care Coordination and Integration [address], [place] [id number] Giselle Garcia, Community Health Associate [address] [place] [address] Allergies Active Allergy Reactions Criticality Noted Date [...] as of this encounter (statuses as of 06/30/2024) Medications buPROPion HCl ER (XL) 300 MG [...] as of this encounter (statuses as of 06/30/2024) Active Problems Problem Noted Date Diagnosed Date [...] as of this encounter (statuses as of 06/30/2024) Resolved Problems Problem Noted Date Diagnosed Date [...] as of this encounter (statuses as of 06/30/2024) Immunizations Name Administration Dates Next Due COVID-19 mRNA, LNP-s, No Pre serve, 2-Dose Series (Kuddle) 08/31/2022,08/30/2020,07/30/2020 COVID-19, MRNA-LNP, PF, 30 M CG/0.3 mL, 12 YRS AND ABOVE, IM (RentShare-Comirnatttwick) 03/14/2024 Covid-19, Mrna, Lnp-s, Pf, B ivalent, 30 Mcg, IM, 12 yrs and above (Pfizer) 09/23/2022 Pneumococcal Conjugate Vacc, 13 Valent (Prevnar) 05/23/2015 Pneumococcal Conjugate Vacci ne, 20-valent ([id number]) 06/24/2024 Pneumococcal Polysaccharide PPV23 (Pneumovax) 02/16/2014,04/25/2008 RSV [...] Entry Date Author Yes 03/07/2024 3:06 PM Kiki Robin RN documented in this encounter Progress Notes * Giselle Garcia Community Health Associate - 06/30/2024 10:56 AM EST Telemedicine visit: No Community Health Associate (LUIS A) documentation: [facility] azra [facility] documented in this encounter Plan of Treatment Upcoming Encounters Date Type Department Care Team (Late st Contact Info) Description 07/04/2024 12:30 PM EST Office Visit [facility]opaedics [facility] [address] [place] [address] Breanna Jorge MD [address] [place] [address] 07/06/2024 3:10 PM EST Home Visit Care Coordination and Integration [address] [place] [address] Silvia Erazo, Community Health Associate [address] [place] [address] 08/01/2024 11:20 AM EST Office Visit Family Practice [address] [facility] [place] [address] [place] [address] Pierre Hill, DO [address] [place] [address] 08/12/2024 2:00 PM EDT Office Visit Orthopaedics Spine Surgery [facility] [address] [facility] [place] [phone] Hallie [facility]aria CR[facility] [phone] 08/31/2024 11:00 AM EDT Office Visit Pharmacy, Health system [address] [facility] [place] [address] [facility] 132 [facility] [place] [address] 10/04/2024 1:00 PM EDT Office Visit Cardiology, [place] [address] [facility] [place] [address] Leighann Lilly [address] [facility] [place] [address] 10/07/2024 10:30 AM EDT Office Visit Otolaryngology Health system 132 [facility] [place] [address] Nanci Schwarz MD 132 [facility] [place] [address] Jovanna Salcedo Au.D. [address] [place] [address] Health Maintenance Due Date Last Done Comments [...] Power of Attor diallo? No Care Teams Environmental Engineering Assistant Relationship Specialty Start Date End Date Pierre Hill DO [address] [place] [address] PCP - General Internal Medicine 06/24/24 documented as of this encounter
--- OUTSIDE RECORDS SUMMARY | 2024-08-04 09:00 | External Medical Summary | Summary of Care ---
Author Name Unknown Organization [facility] Address [address] [place] [address] Phone [phone] Care Team Providers Care Licensed Psychologist Name Role Phone Pierre Hill DO Primary Care Provider [phone] Reason for Visit * Reason Onset Date Comments Dosage Adjustment In Person (Anticoag Clinic) Follow Up New Consultation Immunization RSV Vaccine 06/24/2024 Encounter Details Date Type Department Care Team (Late st Contact Info) Description 06/24/2024 1:00 PM [facility] Pharmacy Family Practice [address] [phone] College, Pharmacist [address] [address] Medication management*; Need for RSV vaccination; Need for pneumococcal vaccination Allergies Active Allergy Reactions Criticality Noted Date [...] as of this encounter (statuses as of 06/26/2024) Medications buPROPion HCl ER (XL) 300 MG Oral Tablet Extended Release 24 Hour (Wellbutrin XL) take 1 tablet by mouth every day in the am with 150mg to make 450mg 90 Tablet 2 08/19/19 Active Gabapentin 600 MG Oral Tablet (Neurontin) take 2 tablets by mouth three times daily 540 Tablet 1 5 12:01 PM EST 09/11/19 Active Additional Information Patient taking differently: 1,800 mg Oral BID (.AM/PM), Reported on 06/24/2024 EPINEPHrine 0.3 MG/0.3ML Injection Solution Auto-injector (Autoinjector) USE DIRECTED 6 Each 3 03/08/20 Active Tafluprost (PF) 0.0015 % Ophthalmic Solution (Zioptan) Instill 1 Drop into both eyes at bedtime. Active Timolol Maleate 0.25 % Ophthalmic Solution (Timoptic) Instill 1 Drop into both eyes in the morning. 09/24/19 Active SUMAtriptan Succinate 100 MG Oral Tablet (Imitrex) Take 1 tablet at onset of migraine may repeat dose 2 hours later as needed for migraine headache maximum 200 mg per 24 hour 10 Tablet 2 03/31/20 Active buPROPion HCl ER (XL) 150 MG Oral Tablet Extended Release 24 Hour (Wellbutrin XL)Indications:Ep isode of recurrent major depressive disorder, unspecified depression episode severity (HCC) Take 1 Tablet by mouth in the morning. 90 Tablet 3 06/03/19 Active Pepto-Bismol 262 MG Oral Tablet (Bismuth Subsalicylate) Take 2 Tablets by mouth daily as needed for Heartburn (abdominal pain). Active Pantoprazole Sodium 40 MG Oral Tablet Delayed Release (Protonix)Indicat ions:Gastroesopha geal reflux disease without esophagitis Take 1 Tablet [...] (Up to 3000 mg per day) Active Melatonin 10 MG Oral Tablet Take 2 Tablets by mouth at bedtime. Discontinu ed(Medicat ion List Clean Up) Latanoprost 0.005 % Ophthalmic Solution (Xalatan) 1 Drop in the morning. Discontinu ed(Medicat ion List Clean Up) Bimatoprost 0.03 % External Solution (Latisse) 07/17/19 Discontinu ed(Medicat ion List Clean Up) B Complex Vitamins Oral Capsule Take 1 Capsule by mouth in the morning. Discontinu ed(Medicat ion List Clean Up) Multi-Vitamin HP/Minerals Oral Capsule Take by mouth. Discontinu ed(Medicat ion List Clean Up) NATURAL SUPPLEMENT Take by mouth daily. Sisal Brain Vitality Discontinu ed(Medicat ion List Clean Up) traZODone HCl 150 MG Oral Tablet (Desyrel) Take 1 Tablet by mouth at bedtime. Takes 2/3 of a tab at bedtime Discontinu ed(Medicat ion List Clean Up) Morphine Sulfate ER 15 MG Oral Tablet Extended Release (Ms Contin) Take 1 Tablet by mouth in the morning and 1 Tablet before bedtime. 60 Tablet 05/18/20 Discontinu ed(Refill) Aspirin 500 MG Oral Tablet Take 5 Tablets by mouth as needed for Pain. Discontinu ed(Medicat ion/Dose Changed) Arexvy 120 MCG/0.5ML Intramuscular Suspension Reconstituted (RSV PreF3 Vac Recomb Adjuvanted)Indica tions:Need for RSV vaccination Inject 0.5 mL into a large muscle once for 1 dose. 1 Each 5 3:19 PM EST 06/24/19 25 025 documented as of this encounter (statuses as of 06/26/2024) Active Problems Problem Noted Date Diagnosed Date [...] as of this encounter (statuses as of 06/26/2024) Resolved Problems Problem Noted Date Diagnosed Date [...] as of this encounter (statuses as of 06/26/2024) Immunizations Name Administration Dates Next Due COVID-19 mRNA, LNP-s, No Pre serve, 2-Dose Series (Adwanted) 08/31/2022,08/30/2020,07/30/2020 COVID-19, MRNA-LNP, PF, 30 M CG/0.3 mL, 12 YRS AND ABOVE, IM (PFIZER-Comirnaty) 03/14/2024 Covid-19, Mrna, Lnp-s, Pf, B ivalent, 30 Mcg, IM, 12 yrs and above (Pfizer) 09/23/2022 Pneumococcal Conjugate Vacc, 13 Valent (Prevnar) 05/23/2015 Pneumococcal Conjugate Vacci ne, 20-valent ([id number]) 06/24/2024 Pneumococcal Polysaccharide PPV23 (Pneumovax) 02/16/2014,04/25/2008 RSV [...] Answer Date Recorded PHQ Adult Total Score 1 06/24/2024 Hunger Vital Sign Answer Date Recorded Within [...] No 03/07/2024 3:06 PM EDKiki Mendez RN * Because of a physical, mental, [...] Kiki Robin RN documented in this encounter Patient Instructions * Patient Instructions* Gris Naik RPh - 06/24/2024 1:36 PM EST Possible side effects of RSV vaccine, (Respiratory Syncytial Virus), are usually mild and can include: Soreness, swelling or redness at injection site Low grade fever Body aches or joint pain Headache Nausea or diarrhea You may use a fever/pain reducing medication for these symptoms. LET YOUR DOCTOR KNOW IMMEDIATELY IF YOU HAVE DIFFICULTY BREATHING OR SWALLOWING, EXPERIENCE ITCHINGOF FEET OR HANDS, HAVE SWELLING OF EYES, FACE OR INSIDE OF NOSE. documented in this encounter Progress Notes * Gris Naik RPh - 06/24/2024 1:03 PM EST Medication Therapy Disease Management Clinic - Medication Reconciliation Encounter Type: discussed with patient Med Bottles Available for Review: no Med Rec Reason: New Patient Prescription insurance information: P Gold Other prescription coverage: None Transition of Care Date of Admission: 06/21/24 - [facility] Date of Discharge: 06/23/24 Reason for Admission: SVT and infected knee/pain Medication changes during admission/on discharge: Added: cefuroxime 500mg BID x 5 days Modified: none Discontinued: aspirin PRN Does the patient currently have all of their medications in their home? No, not able to get to pharmacy and can't afford the $10 copay until 07/05 when she has the money. [x] Preferred pharmacy reviewed/updated [x] Problem list reviewed [x] Allergies reviewed and updated if needed [x] Drug interaction check completed [x] HEDIS list addressed Immunizations indicated: Pneumococcal, RSV, Zoster Medication Organization/Adherence: Has home care nurse or caregiver: No Patient uses a pill box/blister packs? Yes, refill(s) completed by self When you are at home, how often do you miss doses of medications? Less than once a week Reason: missing due to not having money to get meds or no transportation. How difficult is it for you to pay for your medications? Very difficult How often do you experience adverse effects from your medications? Never Labs/Vitals/Risk Scores: The 10-year ASCVD risk score (Shad BARNES, et al., 2019) is: 8.7% Values used to calculate the score: Age: 68 years Sex: Female Is Non- : No Diabetic: No Tobacco smoker: No Systolic Blood Pressure: 150 mmHg Is BP treated: No HDL Cholesterol: 56 mg/dL Total Cholesterol: 174 mg/dL BP Readings from Last 3 Encounters: 04/08/24 150/76 03/14/24 152/80 03/08/24 141/59 No results for input(s): "HGBA1C" in the last 25670 hours. Recent Labs Units 03/08/24 0617 03/07/24 1041 ESTIMATED GLOMERULAR FILTRATION RATE - [facility] mL/min >90 >90 Serum creatinine: 0.5 mg/dL 03/08/24 0617 Estimated creatinine clearance: 72.6 mL/min Assessment: Medication discrepancies identified: - not taking ceforuxime for leg due to not able to pay at pharmacy - Reports being out of bupropion 150mg so taking 1.5 tabs of 300mg tabs - reports being out of morphine - taking multiple aspirin 500mg at a time - up to 5 at a time. - stopped sucralfate for ulcer due to diarrhea, not interested in trying again. Dose/frequency of medications appropriate for current renal function? yes Other medication problems identified: - overuse of aspirin while she has bleeding ulcer - uncontrolled pain - lack of migraine ppx - patient reports she's tried multiple agents in the past and nothing has worked. Plan: Immunizations facilitated: Pneumococcal, RSV Patient education provided: - risk of taking aspirin in high doses - better to take tylenol, also has analgesic effect with hermorphine. - vaccines - mail order Referral pended for follow up management of: N/A - PCP referred patient for pain management. Medication recommendations: - STOP aspirin, try tylenol coadministered with morphine (< 3000 mg per day) I spent a total of 20-29 minutes (exact time 27 mins) on the date of service in preparation, delivery, and documentation of the care provided to Milagros Mcgraw excluding any time spent in the performance of separately billed services or time spent by another provider/QHP. Gris Beltran [facility] Clinical Pharmacist - Hazardous Material Specialist Medication Therapy Management Clinic 06/24/2024, 1:04 PM documented in this encounter Plan of Treatment Upcoming Encounters Date Type Department Care Team (Late st Contact Info) Description 06/27/2024 1:00 PM EST Scheduled Telephone Family Practice [address] [place] [address] [address] [place] [phone] Araceli Edwards RN [address] [place] [phone] 08/01/2024 11:20 AM EST Office Visit Family [address] [place] [phone] Pierre Hill DO [address] [place] [address] 08/12/2024 2:00 PM EDT Office Visit Orthopaedics Spine Surgery [facility] [address] [place] [phone] Hallie Faria CRNP [address] [place] [address] 10/07/2024 10:30 AM EDT Office Visit Otolaryngology [facility] 132 [facility] [place] [address] Nanci Schwarz MD [address] [place] [address] Jovanna Salcedo Au.D. [address] [place] [address] Health Maintenance Due Date Last Done Comments DXA Scan 1956 Hepatitis C Screening 1974 Cologuard 2001 Colonoscopy 2001 Sigmoidoscopy 2001 Zoster Vaccines (1 of 2) 2006 Colorectal Cancer Screening 06/26/2010 Fecal Occult Blood Test 06/26/2010 06/26/2009 Mammogram 09/28/2012 09/29/2011 Adult Wellness Visit 2022 Depression Monitoring 06/24/2025 06/24/2024 GFR 06/24/2025 06/24/2024, 10/0 12/2023, 03/07/2024, Additional history exists Albumin/Creatinine Ratio 11/18/2026 11/19/2023 Diabetes Screening 06/24/2027 06/24/2024, 1 , 03/07/2024, Additional history exists DTap/Tdap Vaccines (2 - Td or Tdap) 02/24/2029 02/24/2019 Lipid Panel 06/24/2029 06/24/2024, 1008/2023, 03/05/2021 COVID-19 Vaccine Completed 03/14/2024, , 08/31/2022, [...] as of this encounter Visit Diagnoses Diagnosis Medication management- Primary Encounter for long-term (current) use of other medications Need for RSV vaccination Need for prophylactic vaccination and inoculation against respiratory syncytial virus Need for pneumococcal vaccination Need for prophylactic vaccination against streptococcus pneumoniae (pneumococcus) documented in this encounter Advance Directives * [...] Power of Attor diallo? No Care Teams Licensed Psychologist Relationship Specialty Start Date End Date Pierre Hill DO [address] [place] [address] PCP - General Internal Medicine 06/24/24 documented as of this encounter
--- OUTSIDE RECORDS SUMMARY | 2024-08-04 09:00 | External Medical Summary | Summary of Care ---
Author Name Unknown Organization [facility] Address [address] [place] [address] Phone [phone] Care Team Providers Care Lens Mold Setter Name Role Phone Pierre Hill DO Primary Care Provider [phone] Reason for Visit * Reason Onset Date Comments Appointment 07/01/2024 Encounter Details Date Type Department Care Team (Late st Contact Info) Description 07/01/2024 Telephone Orthopaedics [facility] [address] [place] [address] Sergio Thomas DO [address] [facility] [place] [address] Appointment Allergies Active Allergy Reactions Criticality Noted [...] as of this encounter (statuses as of 07/01/2024) Medications buPROPion HCl ER (XL) 300 MG [...] as of this encounter (statuses as of 07/01/2024) Active Problems Problem Noted Date Diagnosed Date [...] as of this encounter (statuses as of 07/01/2024) Resolved Problems Problem Noted Date Diagnosed Date [...] as of this encounter (statuses as of 07/01/2024) Immunizations Name Administration Dates Next Due COVID-19 mRNA, LNP-s, No Pre serve, 2-Dose Series (Virax) 08/31/2022,08/30/2020,07/30/2020 COVID-19, MRNA-LNP, PF, 30 M CG/0.3 mL, 12 YRS AND ABOVE, IM ([employer]) 03/14/2024 Covid-19, Mrna, Lnp-s, Pf, B ivalent, 30 Mcg, IM, 12 yrs and above (Virax) 09/23/2022 Pneumococcal Conjugate Vacc, 13 Valent (Prevnar) 05/23/2015 Pneumococcal Conjugate Vacci ne, 20-valent ([id number]) 06/24/2024 Pneumococcal Polysaccharide PPV23 (Pneumovax) 02/16/2014,04/25/2008 RSV [...] Telephone Encounter - Flora Epps OSA - 07/01/2024 2:50 PM EST Pt was scheduled with Dr. Jorge, she needs to be scheduled with a surgeon, as he had a Total Leftknee done. I left her a voicemail with the new date and time, if she needs to re-schedule, what's available is accurate. documented in this encounter Plan of Treatment Upcoming Encounters Date Type Department Care Team (Late st Contact Info) Description 07/06/2024 3:10 PM EST Home Visit Care Coordination and Integration [address] [place] [address] Silvia Erazo, Community Health [employer] Wireless Manager [address] [place] [address] 08/01/2024 11:20 AM EST Office Visit Family Practice [address] [place] [address], [place] 293 [facility] [place] [address] Pierre Hill, DO 293 [facility] [place] [address] 08/04/2024 10:30 AM EST Office Visit Orthopaedics [facility] [address] [place] [phone] Sergio Thomas, DO [address] [place] [address] 08/12/2024 2:00 PM EDT Office Visit Orthopaedics Spine Surgery [facility] [address] [place] [phone] Hallie Faria CRNP 310 [facility] [place] [phone] 08/31/2024 11:00 AM EDT Office Visit Pharmacy, [facility] 132 [facility] [place] [address] [facility] [address] [place] [address] 10/04/2024 1:00 PM EDT Office Visit Cardiology, [place] [address] [place] [address] Leighann Lilly DO [address] [place] [address] 10/07/2024 10:30 AM EDT Office Visit Otolaryngology [facility] [address] [place] [address] Nanci Schwarz MD [address] [place] [address] Jovanna Salcedo Au.D. [address] [place] [address] Health Maintenance Due Date Last Done Comments [...] Power of Attor diallo? No Care Teams Lens Mold Setter Relationship Specialty Start Date End Date Pierre Hill DO [address] [facility] [place] [address] PCP - General Internal Medicine 06/24/24 documented as of this encounter
--- OUTSIDE RECORDS SUMMARY | 2024-08-04 09:00 | External Medical Summary | Summary of Care ---
Author Name Unknown Organization [facility] Address [address] [place] [address] Phone [phone] Care Team Providers Care Aluminum Can Collector Name Role Phone SebastiánblossomPierre DO Primary Care Provider [phone] Reason for Visit * Reason Onset Date Comments Referral 06/24/2024 [facility] Pain Manage ment Encounter Details Date Type Department Care Team (Late st Contact Info) Description 06/24/2024 Telephone Pharmacy, [facility] [address] [place] [address] [facility] [address] [place] [address] Referral ([facility] Pain Management) Allergies Active Allergy Reactions Criticality Noted Date [...] as of this encounter (statuses as of 06/27/2024) Medications buPROPion HCl ER (XL) 300 MG [...] (Up to 3000 mg per day) Active documented as of this encounter (statuses as of 06/27/2024) Active Problems Problem Noted Date Diagnosed Date [...] as of this encounter (statuses as of 06/27/2024) Resolved Problems Problem Noted Date Diagnosed Date [...] as of this encounter (statuses as of 06/27/2024) Immunizations Name Administration Dates Next Due COVID-19 mRNA, LNP-s, No Pre serve, 2-Dose Series ([employer]) 08/31/2022,08/30/2020,07/30/2020 COVID-19, MRNA-LNP, PF, 30 M CG/0.3 mL, 12 YRS AND ABOVE, IM (PFIZER-Comirnaty) 03/14/2024 Covid-19, Mrna, Lnp-s, Pf, B ivalent, 30 Mcg, IM, 12 yrs and above (Pfizer) 09/23/2022 Pneumococcal Conjugate Vacc, 13 Valent (Prevnar) 05/23/2015 Pneumococcal Conjugate Vacci ne, 20-valent ([id number]) 06/24/2024 Pneumococcal Polysaccharide PPV23 (Pneumovax) 02/16/2014,04/25/2008 RSV [...] No 06/24/2024 Does the household have a rustlar source of income? (Household - for ages [...] Author No 03/07/2024 3:06 PM EDT Kiki aLng RN * Do you have serious difficulty walking or climbing stairs? (5 years old or older) Answer Date of Assessment Author Yes 03/07/2024 3:06 PM EDT iKki Lang RN * Do you have difficulty [...] encounter Miscellaneous Notes * Telephone Encounter - Hallie Randolph RPh - 06/27/2024 7:54 AM EST Referral reviewed and is appropriate. Please schedule. Initial appt length: 60 minutes Patient referred to [facility] clinic for Pain Management Regimen optimization on behalf of Dr. Hill. Referral reviewed and relevant pre-visit information listed below: Pain Follow-up as scheduled. Hallie Randolph RPh 06/27/2024, 7:54 AM * Telephone Encounter - Annette Jackson PHARM Tech - 06/24/2024 2:46 PM EST Comments Pharmacist Medication Therapy Management: Minimum frequency patient should be seen in person for medication management: as appropriate per clinical condition and patient status By my signature, I understand that my patient Milagros Mcgraw will have her medication therapy managed by the [facility] Medication Therapy Disease Management Clinic ([facility]) per established policies,procedures, and protocols. I also certify that this referral may serve as an initiation of service for the management of drug therapy in the above noted patient. [facility] providers will be responsible for scheduling patient visits, obtaining appropriate laboratory studies, and adjusting medication management therapy per patient's need, in addition to those roles spelled out in the clinic policy, procedures, and drug management protocols. I understand that the service provided by the [facility] is voluntary and have informed patient that they can refuse the service at their discretion. I am aware that the [facility] Clinic will provide me with a copy of the patient encounter via my [employer] [facility]. I authorize the [facility] to carry out these activities on my behalf. I consider this program to be a necessary part of the patient's medical care. Pierre Hill DO Order Specific Questions Referral Priority Within 10 days (routine) Where should this appointment be scheduled? [facility] Referring Provider Role: Primary Care Reason for Referral: Pain Pain Diagnosis: Back pain DJD Chronic Pain Syndrome Further Details of Diagnosis: Chronic pain back, neck, and left knee whiche was replaced Pain Treatment Options: Opioids and/or Non-opioids Does patient have a signed MICHELE? This is required for patients on opioids Yes Has patient completed a Urine Drug Screen in the past 3 months? This is required for patients on opioids Yes Pain Treatment Goal: Med Optimization documented in this encounter Plan of Treatment Upcoming Encounters Date Type Department Care Team (Late st Contact Info) Description 06/27/2024 1:00 PM EST Scheduled Telephone Family Practice [address] [place] [address] [facility] [phone] Araceli Edwards RN 293 [place] [address] Arrived 08/01/2024 11:20 AM EST Office Visit Family Practice [address] [facility] [address] [facility] [phone] Pierre Hill DO [facility] [address] 08/12/2024 2:00 PM EDT Office Visit Orthopaedics Spine Surgery [facility] [address] [place] [phone] Hallie Faria CRNP [address] [place] [phone] 10/07/2024 10:30 AM EDT Office Visit Otolaryngology [facility] [address] [place] [address] Nanci Schwarz MD [address] [place] [address] Jovanna Salcedo Au.D. [address] [place] [address] Health Maintenance Due Date Last Done Comments DXA Scan 1956 Cologuard 2001 Colonoscopy 2001 Sigmoidoscopy 2001 Zoster Vaccines (1 of 2) 2006 Colorectal Cancer Screening 06/26/2010 Fecal Occult Blood Test 06/26/2010 06/26/2009 Mammogram 09/28/2012 09/29/2011 Adult Wellness Visit 2022 Depression Monitoring 06/24/2025 06/24/2024 GFR 06/24/2025 06/24/2024, 1012/2023, 03/07/2024, Additional history exists Albumin/Creatinine Ratio 11/18/2026 [...] Power of Attor diallo? No Care Teams Aluminum Can Collector Relationship Specialty Start Date End Date Pierre Hill DO [address] [place] [address] PCP - General Internal Medicine 06/24/24 documented as of this encounter
--- OUTSIDE RECORDS SUMMARY | 2024-08-04 09:00 | External Medical Summary | Summary of Care ---
Author Name Unknown Organization [facility] Address [address] [place] [address] Phone [phone] Care Team Providers Care Hotel Maintenance Technician Name Role Phone Pierre Hill Ronna BESS Primary Care Provider [phone] Reason for Visit * Reason Onset Date Comments Appointment 07/01/2024 Encounter Details Date Type Department Care Team (Late st Contact Info) Description 07/01/2024 Telephone Orthopaedics [facility] [address] [place] [address] [...] Tablet by mouth in the morning. Active documented as of this encounter (statuses [...] mRNA, LNP-s, No Pre serve, 2-Dose Series ([employer]) 08/31/2022,08/30/2020,07/30/2020 COVID-19, MRNA-LNP, PF, 30 M CG/0.3 mL, 12 YRS AND ABOVE, IM ([employer] [employer]) 03/14/2024 Covid-19, Mrna, Lnp-s, Pf, B ivalent, 30 Mcg, IM, 12 yrs and above ([employer]) 09/23/2022 Pneumococcal Conjugate Vacc, 13 Valent (Prevnar) 05/23/2015 Pneumococcal Conjugate Vacci ne, 20-valent ([id number]) 06/24/2024 Pneumococcal Polysaccharide PPV23 (Pneumovax) 02/16/2014,04/25/2008 RSV [...] encounter Miscellaneous Notes * Telephone Encounter - Pierre Hill DO [...] Visit Care Coordination and Integration [address] [place] [address] Silvia Erazo, Community Health Engineering Lab Technician [address] [place] [address] 08/01/2024 11:20 AM EST Office Visit Family Practice [address] [place] [address] [address] [place] [address] Pierre Hill, DO [address] [place] [address] 08/04/2024 10:30 AM EST Office Visit Orthopaedics [facility] [address] [place] [phone] Sergio Thomas, DO [address] [place] [address] 08/12/2024 2:00 PM EDT Office Visit Orthopaedics Spine Surgery [facility] [address] [place] [phone] Hallie aFria CRNP [address] [place] [phone] 08/31/2024 11:00 AM EDT Office Visit Pharmacy, [facility] [address] [place] [address] Eliseo [facility] 132 [facility] [place] [address] 10/04/2024 1:00 PM EDT Office Visit Cardiology, [place] [address] [place] [address] Leighann Lilly DO [address] [place] [address] 10/07/2024 10:30 AM EDT Office Visit Otolaryngology [facility] [address] [place] [address] Nanci Schwarz MD [address] [place] [address] Jovanna Salcedo Au.D. [address] [place] [address] Health Maintenance Due Date Last Done Comments [...] Power of Attor diallo? No Care Teams Hotel Maintenance Technician Relationship Specialty Start Date End Date Pierre Hill DO [address] [facility] [place] [address] PCP - General Internal Medicine 06/24/24 documented as of this encounter
--- OUTSIDE RECORDS SUMMARY | 2024-08-04 09:00 | External Medical Summary | Summary of Care ---
Author Name Unknown Organization [facility] Address [address] [place] [address] Phone [phone] Care Team Providers Care Sheep Herder Name Role Phone Pierre Hill DO Primary Care Provider [phone] Reason for Visit * Reason Onset Date Comments Follow Up 06/27/2024 Encounter Details Date Type Department Care Team (Late st Contact Info) Description 06/27/2024 1:00 PM EST Scheduled Telephone Family Practice 65 [facility] [place] [address] [place] [address] Araceli Edwards RN [address] [place] [address] Arrived Allergies Active Allergy Reactions Criticality Noted Date [...] 1 Tablet before bedtime. 60 Tablet Active documented as of this encounter (statuses as of 06/27/2024) Active Problems Problem Noted Date Diagnosed Date Hepatitis C virus infection without hepatic coma 06/26/2024 Severe episode of recurrent major depressive disorder, without psychotic features 06/24/2024 Gastric bypass status for obesity 06/24/2024 SVT (supraventricular tachycardia) 06/24/2024 Chronic pain of left knee 06/24/2024 Status post total left knee replacement 06/24/19 Food insecurity 04/11/2024 Overview: Per [employer] [...] mRNA, LNP-s, No Pre serve, 2-Dose Series ([employer]) 08/31/2022,08/30/2020,07/30/2020 COVID-19, MRNA-LNP, PF, 30 M CG/0.3 mL, 12 YRS AND ABOVE, IM (PHARMAJET-Comirnaty) 03/14/2024 Covid-19, Mrna, Lnp-s, Pf, B ivalent, 30 Mcg, IM, 12 yrs and above (Pfizer) 09/23/2022 Pneumococcal Conjugate Vacc, 13 Valent (Prevnar) 05/23/2015 Pneumococcal Conjugate Vacci ne, 20-valent ([id number]) 06/24/2024 Pneumococcal Polysaccharide PPV23 (Pneumovax) 02/16/2014,04/25/2008 RSV [...] Miscellaneous Notes * Telephone Encounter - Araceli Edwards RN - 06/27/2024 1:46 PM EST Call not needed-pt is being followed by case management. documented in this encounter Plan of Treatment Upcoming Encounters Date Type Department Care Team (Late st Contact Info) Description 08/01/2024 11:20 AM EST Office Visit Family Practice 65 [facility] 293 [place] [address] Pierre Hill, 293 [place] [address] 08/12/2024 2:00 PM EDT Office Visit Orthopaedics Spine Surgery [facility] [address] [place] [phone] Hallie Faria CRNP [address] [place] [phone] 10/07/2024 10:30 AM EDT Office Visit Otolaryngology [facility] [address] [place] [address] Nanci Schwarz MD [address] [place] [address] Jovanna Salcedo Au.D. [address] [place] [address] Health Maintenance Due Date Last Done Comments [...] Power of Attor diallo? No Care Teams Sheep Herder Relationship Specialty Start Date End Date Pierre Hill DO 293 [place] [address] PCP - General Internal Medicine 06/24/24 documented as of this encounter
--- OUTSIDE RECORDS SUMMARY | 2024-08-04 09:00 | External Medical Summary | Summary of Care ---
Author Name Unknown Organization [facility] Address [address] [place] [address] Phone [phone] Care Team Providers Care Paperhanger Apprentice Name Role Phone Pierre iHll DO Primary Care Provider [phone] Reason for Referral * Evaluate & Treat - Unlimited Visits (Within 10 days (routine)) - Authorized Specialty Diagnoses / Procedures Referred By Contact Referred To Contact Cardiovascular Medicine / Cardiology Diagnoses SVT (supraventricular tachycardia) ([facility]) Pierre Hill DO [address] [place] [address] Phone: tel: fax: Referral ID Status Reason Start Date Expiration Date Visits Requested Visits Authorized [id number] Authorized Specialty Services Required 06/28/[phone] Question Answer Referral Priority Within 10 days (routine) [facility] this [facility] be scheduled? [facility] For which of the following conditions are you referring? SVT (Supraventricular Tachycardia) Is the patient symptomatic (palpitations, light headedness, chest discomfort)? Yes Reason for Visit * Reason Onset Date Comments Referral 06/28/2024 Encounter Details Date Type Department Care Team (Late st Contact Info) Description 06/28/2024 Telephone Family Practice 65 [facility] [place] [address] [place] [phone] Pierre Hill DO [address] [place] [address] Referral Allergies Active Allergy Reactions Criticality Noted [...] bedtime. 120 Tablet 06/14/2024 2:26 PM EST Active Cefuroxime Axetil 500 [...] mRNA, LNP-s, No Pre serve, 2-Dose Series (iDiDiD) 08/31/2022,08/30/2020,07/30/2020 COVID-19, MRNA-LNP, PF, 30 M CG/0.3 mL, 12 YRS AND ABOVE, IM (PFIZER-Comirnaty) 03/14/2024 Covid-19, Mrna, Lnp-s, Pf, B ivalent, 30 Mcg, IM, 12 yrs and above (Pfizer) 09/23/2022 Pneumococcal Conjugate Vacc, 13 Valent (Prevnar) 05/23/2015 Pneumococcal Conjugate Vacci ne, 20-valent ([id number]) 06/24/2024 Pneumococcal Polysaccharide PPV23 (Pneumovax) 02/16/2014,04/25/2008 RSV [...] encounter Miscellaneous Notes * Telephone Encounter - Lesia Nguyen OSA - 06/30/2024 1:16 PM EST Scheduled patient for first available which was September 30 and was placed on the wait list. Message left for patient and advised to call if this is not agreeable. * Telephone Encounter - Milagros Blair OSA - 06/28/2024 3:16 PM EST LMAM for patient to call and get appt scheduled * Telephone Encounter - Pierre Hill DO - 06/28/2024 2:22 PM EST Schedule with Cardiology. * Telephone Encounter - Araceli Aggarwal LPN - 06/28/2024 12:58 PM EST Pended referral for cardiology with SVT diagnosis. Should she see cardio? * Telephone Encounter - Sandra Delgado OSA - 06/28/2024 12:43 PM EST Patient called ,stating that when she was in hospital last week,they recommended for her to f/u with cardiology. She requests referral to cardiology. documented in this encounter Plan of Treatment Upcoming Encounters Date Type Department Care Team (Late st Contact Info) Description 07/04/2024 12:30 PM EST Office Visit Orthopaedics [facility] [address] [place] [phone] Breanna Jorge MD [address] [place] [phone] 07/06/2024 3:10 PM EST Home Visit Care Coordination and Integration [address] [facility] [place] [address] Silvia Erazo, Community Health Heavy Equipment Field Mechanic [address] [place] [address] 08/01/2024 11:20 AM EST Office Visit Family Practice [address] [place] [address] 293 [place] [address] Pierre Hill, DO [address] [place] [address] 08/12/2024 2:00 PM EDT Office Visit Orthopaedics Spine Surgery [facility] [address] [facility] [place] [phone] Hallie Faria CRNP [address] [facility] [place] [phone] 08/31/2024 11:00 AM EDT Office Visit Pharmacy, [facility] 132 [facility] [place] [address] [facility] 132 [facility] [place] [address] 10/04/2024 1:00 PM EDT Office Visit Cardiology, [place] [address] [place] [address] Leighann Lilly [address] [place] [address] 10/07/2024 10:30 AM EDT Office Visit Otolaryngology [facility] [address] [place] [address] Nanci Schwarz MD [address] [place] [address] Jovanna Salcedo Au.D. [address] [place] [address] Scheduled Referrals Name Type Priority Associated Diagnoses Orde r Schedule CARDIOLOGY REFERRAL OP Referral Within 10 days (routine) SVT (supraventricular tachycardia) (HCC) Ordered: 06/28/2024 Health Maintenance Due Date Last Done Comments [...] as of this encounter Visit Diagnoses Diagnosis SVT (supraventricular tachycardia) (HCC)- Primary Other specified cardiac dysrhythmias documented in this encounter Advance Directives * [...] Power of Attor diallo? No Care Teams Paperhanger Apprentice Relationship Specialty Start Date End Date Pierre Hill DO [address] [place] [address] PCP - General Internal Medicine 06/24/24 documented as of this encounter
--- OUTSIDE RECORDS SUMMARY | 2024-08-04 09:01 | External Medical Summary ---
Author Name Unknown Address Unknown Organization [id number]:LABORATORY [facility] [place] - [address] [facility] [address] [facility] [address] Laboratory Report Ordering Provider Test Date Status ROSA MEDRANO 06/24/2024 14:43:22 Final Observation Date Value Abnormality Reference (Units ) Status WBC, Total 06/24/2024 14:43:22 6.17 4.00-10.80 (K/uL) Final RBC 06/24/2024 14:43:22 4.79 3.85-5.15 (M/uL) Final Hemoglobin 06/24/2024 14:43:22 12.5 12.0-15.3 (g/dL) Final HCT 06/24/2024 14:43:22 42.1 36.0-45.2 (%) Final MCV 06/24/2024 14:43:22 87.9 81.5-97.5 (fL) Final MCH 06/24/2024 14:43:22 26.1 27.0-34.0 (pg) Final MCHC 06/24/2024 14:43:22 29.7 32.0-36.0 (g/dL) Final RDW 06/24/2024 14:43:22 17.8 11.5-15.5 (%) Final Platelets 06/24/2024 14:43:22 485 Above high normal 140-400 (K/uL) Final MPV 06/24/2024 14:43:22 8.9 6.6-11.1 (fL) Final Nucleated erythrocytes/100 leukocytes [Ratio] in Blood by Automated count 06/24/2024 14:43:22 0 <=0 (/100 WBCs) Final Performing Location LABORATORY [facility] - [address] [facility] [address]
--- OUTSIDE RECORDS SUMMARY | 2024-08-04 09:01 | External Medical Summary ---
Author Name Unknown Address Unknown Organization K01:LABORATORY [facility] [place] - [address] [place] [address] Laboratory Report Ordering Provider Test Date Status ROSA MEDRANO 06/24/2024 14:43:22 Final Observation Date Value Abnormality Reference (Units ) Status Vitamin B12 06/24/2024 14:43:22 700 [id number] (pg/mL) Final Performing Location LABORATORY [facility] - [address] [place] [address]
--- OUTSIDE RECORDS SUMMARY | 2024-08-04 09:01 | External Medical Summary | Summary of Care ---
Author Name Unknown Organization [facility] Address [address] [place] [address] Phone [phone] Care Team Providers Care Teletype Clerk Name Role Phone Pierre Hill DO Primary Care Provider Reason for Referral * Evaluate & Treat - Unlimited Visits (Within 10 days (routine)) - Authorized Specialty Diagnoses / Procedures Referred By Dmitri pitts Referred To Contact Pharmacist / Pharmacy Diagnoses Chronic pain syndrome Pierre Hill DO [address] [place] [address] Phone: tel: fax: Referral ID Status Reason Start Date Expiration Date Visits Requested Visits Authorized [id number] Authorized Specialty Services Required 06/24/2024 12/21/2024 99 [phone] Question Answer Referral Priority Within 10 days (routine) Where should this appointment be scheduled? [facility] Referring Provider Role: Primary Care Reason for Referral: Pain Pain Diagnosis: Back pain, DJD, Chronic Pain Syndrome Further Details of Diagnosis: Chronic pain back, neck, and left knee whiche was replaced Pain Treatment Options: Opioids and/or Non-opioids Does patient have a signed MICHELE? This is required for patients on opioids Yes Has patient completed a Urine Drug Screen in the past 3 months? This is required for patients on opioids Yes Pain Treatment Goal: Med Optimization Comments Pharmacist Medication Therapy Management: Minimum frequency patient should be seen in person for medication management: as appropriate per clinical condition and patient status By my signature, I understand that my patient Milagros Mcgraw will have her medication therapy managed by the [facility] ([facility] per established policies, procedures, and protocols. I also certify that this referral may serve as an initiation of service for the management of drug therapy in the above noted patient. [facility] providers will be responsible for scheduling patient visits, obtaining appropriate laboratory studies, and adjusting medication management therapy per patient's need, in addition to those roles spelled out in the clinic policy, procedures, and drug management protocols. I understand that the service provided by the [facility] is voluntary and have informed patient that they can refuse the service at their discretion. I am aware that the [facility] will provide me with a copy of the patient encounter via my [employer]. I authorize the [facility] to carry out these activities on my behalf. I consider this program to be a necessary part of the patient's medical care. Pierre Hill DO * Evaluate & Treat - Unlimited Visits (Within 10 days (routine)) - Authorized Specialty Diagnoses / Procedures Referred By Dmitri pitts Referred To Contact Orthopaedic Surgery / Orthopedics Diagnoses Chronic pain of left knee Pierre Hill DO [address] [place] [address] Phone: tel: fax: Referral ID Status Reason Start Date Expiration Date Visits Requested Visits Authorized [id number] Authorized Specialty Services Required 06/24/[phone] Question Answer Referral Priority Within 10 days (routine) Where should this appointment be scheduled? [facility] What body part is the patient being seen for? Thigh/Knee What condition is the patient being seen for? Arthritis including related infection * Evaluate & Treat - Unlimited Visits (Within 10 days (routine)) - Authorized Specialty Diagnoses / Procedures Referred By Dmitri pitts Referred To Contact Physical Therapy / Physical Medicine And Rehab Diagnoses DDD (degenerative disc disease), cervical Spinal stenosis of lumbar region with neurogenic claudication Pierre Hill DO [address] [place] [address] Phone: tel: fax: Referral ID Status Reason Start Date Expiration Date Visits Requested Visits Authorized [id number] Authorized Specialty Services Required 06/24/[phone] Question Answer Referral Priority Within 10 days (routine) Where should this appointment be scheduled? [facility] * Social Care (Within 10 days (routine)) - Authorized Specialty Diagnoses / Procedures Referred By Dmitri pitts Referred To Contact Rectifying Attendant Diagnoses Chronic pain syndrome Pierre Hill DO [address] [place] [address] Phone: tel: fax: Referral ID Status Reason Start Date Expiration Date Visits Requested Visits Authorized [id number] Authorized Specialty Services Required 06/24/[phone] Question Answer Referral Priority Within 10 days (routine) Where should this appointment be scheduled? [facility] Role Community Health Sales Floor Associate Community Health Sales Floor Associate Referral Reason Home Visit Comments Is patient being transitioned from [facility] to Complex Case Management? No * Ancillary Services (Within 30 days (routine)) - Authorized Specialty Diagnoses / Procedures Referred By Dmitri pitts Referred To Contact Gastroenterology Diagnoses Special screening for malignant neoplasms, colon Pierre Hill DO [address] [place] [address] Phone: tel: fax: Referral ID Status Reason Start Date Expiration Date Visits Requested Visits Authorized [id number] Authorized Ancillary Services Required 06/24/[phone] Question Answer Referral Priority Within 30 days (routine) Where should this appointment be scheduled? [facility] Comments ALERT: Do not order for pediatric patients (18 years or younger). Cancel off screen and order PEDS GASTROENTEROLOGY CONSULT (Type: 1 visit only-Evaluate and Treat) The following Pt. Instructions are available: - Gastro Colonoscopy Prep Instructions [[id number]] - Gastro Colonoscopy Prep Instructions (Mauritanian Version) [[id number]] Go to the Pt. Instructions section within the Visit Navigator to access. Colonoscopy ASGE Guidelines: Postadenoma resection: 1-2 tubular adenomas of less than 1 cm (5 yr intervals) ADDITIONAL INFORMATION 1. Is the patient on Coumadin? No 2. Is the patient on Pradaxa? No Reason for Visit * Reason Comments NEW PATIENT Encounter Details Date Type Department Care Team (Latest Contact Info) Description 06/24/2024 1:40 PM EST Office Visit Family Practice [address], [place] [address] [place] [id number] Pierre Hill DO [address] [place] [address] Chronic pain syndrome*; Severe episode of recurrent major depressive disorder, without psychotic features (HCC); Migraine without status migrainosus, not intractable, unspecified migraine type; Attention-deficit hyperactivity disorder, predominantly inattentive type; Primary open angle glaucoma (POAG) of both eyes, severe stage; Chronic pain of left knee; Status post total left knee replacement; DDD (degenerative disc disease), cervical; Food insecurity; HTN, goal below 140/90; Hepatitis C virus infection without hepatic coma, unspecified chronicity; Spinal stenosis of lumbar region with neurogenic claudication; Special screening for malignant neoplasms, colon; Screening for osteoporosis; Gastric bypass status for obesity; SVT (supraventricular tachycardia) ([facility]); Encounter for therapeutic drug monitoring; Screening for lipoid disorders; Tremor; Acute cystitis without hematuria Allergies Active Allergy Reactions Criticality Noted Date [...] 540 Tablet 1 06/20/2024 12:01 PM EST 04/12/202 4 Active Additional Information Patient taking differently: [...] and 1 Tablet before bedtime. 5 Active Melatonin 10 MG Oral Tablet Take 2 Tablets by mouth at bedtime. 025 Discontin ued(Medic ation List Clean Up) Latanoprost 0.005 % Ophthalmic Solution (Xalatan) 1 Drop in the morning. 025 Discontin ued(Medic ation List Clean Up) Bimatoprost 0.03 % External Solution (Latisse) 2 025 Discontin ued(Medic ation List Clean Up) B Complex Vitamins Oral Capsule Take 1 Capsule by mouth in the morning. 025 Discontin ued(Medic ation List Clean Up) Multi-Vitamin HP/Minerals Oral Capsule Take by mouth. 025 Discontin ued(Medic ation List Clean Up) NATURAL SUPPLEMENT Take by mouth daily. Sisal Brain Vitality 025 Discontin ued(Medic ation List Clean Up) traZODone HCl 150 MG Oral Tablet (Desyrel) Take 1 Tablet by mouth at bedtime. Takes 2/3 of a tab at bedtime 025 Discontin ued(Medic ation List Clean Up) Morphine Sulfate ER 15 MG Oral Tablet Extended Release (Ms Contin) Take 1 Tablet by mouth in the morning and 1 Tablet before bedtime. 60 Tablet 4 Discontin ued(Refil l) Hospital, Clinic, or Other Facility Administered Medication Ordered Dose Route Frequency Start Date End Date Status cefTRIAXone (Rocephin) (350 mg/mL) inj dilution 1,000 mgIndications:Acute cystitis without hematuria 1000 mg IM ONCE 06/24/2024 5 Ended documented as of this encounter (statuses as [...] mRNA, LNP-s, No Pre serve, 2-Dose Series ([employer]) 08/31/2022,08/30/2020,07/30/2020 COVID-19, MRNA-LNP, PF, 30 M CG/0.3 mL, 12 YRS AND ABOVE, IM (ShangPin-Comirnat) 03/14/2024 Covid-19, Mrna, Lnp-s, Pf, B ivalent, 30 Mcg, IM, 12 yrs and above ([employer]) 09/23/2022 Pneumococcal Conjugate Vacc, 13 Valent (Prevnar) 05/23/2015 Pneumococcal Conjugate Vacci ne, 20-valent ([id number]) 06/24/2024 Pneumococcal Polysaccharide PPV23 (Pneumovax) 02/16/2014,04/25/2008 RSV [...] Sign Reading Time Taken Comments Blood Pressure 140/74 06/24/2024 1:40 PM EST Pulse 87 06/24/2024 1:40 PM EST Temperature 37.5 C (99.5 F) 06/24/2024 1:40 PM ES T Respiratory Rate - - Oxygen Saturation 95% 06/24/2024 1:40 PM EST Inhaled Oxygen Concentration - - Weight 85.1 kg (187 lb 11.2 oz) 06/24/2024 1:40 PM EST Height 162.6 cm (5' 4") 06/24/2024 1:40 PM EST Body Mass Index 32.22 06/24/2024 1:40 PM EST documented in this encounter Functional [...] this encounter Patient Instructions * Patient Instructions* Yandy Valentine LPN - 06/24/2024 1:40 PM EST Images from the original note were not included. Colorectal Cancer Screening Colorectal cancer (cancer in the colon or rectum) is a leading cause of cancer deaths in the [place] But it doesnt have to be. When this cancer is found and removed early, the chances of a full recovery are very good. Because colorectal cancer rarely causes symptoms in its early stages, screening for the disease is important. Its even more crucial if you have risk factors for the disease. Learn more about colorectal cancer and its risk factors. Then talk to your healthcare provider about being screened. You could be saving your own life. Risk factors for colorectal cancer Your risk of having colorectal cancer increases if you: Are 50 years of age or older Have a family history or personal history of colorectal cancer or polyps Have a personal history of type 2 diabetes, Crohns disease, or ulcerative colitis Have an inherited genetic syndrome like Robledo syndrome (also known as HNPCC) or familial adenomatous polyposis (FAP) Are very overweight Are not physically active Smoke Drink a lot of alcohol Eat a lot of red or processed meat The colon and rectum Waste from food you eat enters the colon from the small intestine. As it travels through the colon,the waste (stool) loses water and becomes more solid. Intestinal muscles push it toward the sigmoid--the last section of the colon. Stool then moves into the rectum, where its stored until its ready to leave the body during a bowel movement. How cancer develops Polyps are growths that form on the inner lining of the colon or rectum. Most are benign, which means they arent cancerous. But over time, some polyps can become cancer (malignant). This happens when cells in these polyps begin growing abnormally. In time, malignant cells invade more and more ofthe colon and rectum. The cancer may also spread to nearby organs or lymph nodes or to other parts of the body. Finding and removing polyps can help prevent cancer from ever forming. Your screening Screening means looking for a health problem before you have symptoms. During screening for colorectal cancer, your healthcare provider will ask about your health history, examine you, and do one or more tests. History and exam The history and exam involve the following: Health history. Your healthcare provider will ask about your health history. Mention if a family member has had colon cancer or polyps. Also mention any health problems you have had in the past. Digital rectal exam (DANTE). During a DANTE, the healthcare provider inserts a lubricated gloved fingerinto the rectum. The test is painless and takes less than a minute. Healthcare providers agree thatthis test alone is not enough to screen for colorectal cancer. Screening test choices: Fecal occult blood test (FOBT) or fecal immunochemical test (FIT) These tests check for occult blood in stool (blood you cant see). Hidden blood may be a sign of colon polyps or cancer. A small sample of stool is tested for blood in a laboratory. Most often, youcollect this sample at home using a kit your healthcare provider gives you. Follow the instructionscarefully for using this kit. You might need to avoid certain foods and medicines before the test, as directed. Barium enema with contrast (double-contrast barium enema) This test uses X-rays to provide images of the entire colon and rectum. The day before this test, you will need to do a bowel prep to clean out the colon and rectum. A bowel prep is a liquid diet plus strong laxatives or enemas. You will be awake for the test, but you may be given medicine to help you relax. At the start of the test, a radiologist (a healthcare provider who specializes in imagingtests) places a soft tube into the rectum. The tube is used to fill the colon with a contrast liquid (barium) and air. This can be uncomfortable for some people. The liquid helps the colon show up clearly on the X-rays. Because the test uses X-rays, it exposes you to a small amount of radiation. Virtual colonoscopy This exam is also called a CT colonography. It uses a series of X-ray photographs to create a 3-D view of the colon and rectum. The day before the test, you will need to do a bowel prep to clean out your colon. Your healthcare provider will give you instructions on how to do this. During the procedure, you will lie on a table that is part of a special X-ray machine called a CT scanner. A small tube will be placed into your rectum to fill the colon and rectum with air. This can be uncomfortable for some people. Then, the table will move into the machine and pictures will be taken of your colonand rectum. A computer will combine these photos to create a 3-D picture. Because the test uses X-rays, it exposes you to a small amount of radiation. Cologuard Cologuard is an easy to use, noninvasive colon cancer screening test that you can use in the privacy of your own home. It identifies altered DNA and/or blood in stool, which are associated with the possibility of colon cancer or precancer. DNA is continuously shed from cells in the intestinal lining, where it is passed into the stool. Ifcancer or precancer is present, abnormal cells will shed into the colon and stool along with normalcells. A molecular biology process is used to capture specific pieces of DNA for further analysis. Scope exams Here are two types of scope exams: Colonoscopy. This test can be used to find and remove polyps anywhere in the colon or rectum. The day before the test, you will do a bowel prep. This is a liquid diet plus a strong laxative solution or an enema. The bowel prep will cleanse your colon. You will be given instructions for this. Just before the test, you are given a medicine to make you sleepy. Then, a long, flexible, lighted tube called a colonoscope is gently inserted into the rectum and guided through the entire colon. Images ofthe colon are viewed on a video screen. Any polyps that are found are removed and sent to a lab fortesting. If a polyp cant be removed, a sample of tissue is taken and the polyp might be removed l ater during surgery. You will need to bring someone with you to drive you home after this test. Sigmoidoscopy. This test is similar to colonoscopy, but focuses only on the sigmoid colon and rectum. As with colonoscopy, bowel prep must be done the day before this test. It might not need to be ascomplete as the bowel prep for a colonoscopy. You are awake during the procedure, but you may be given medicine to help you relax. During the test, the healthcare provider guides a thin, flexible, lighted tube called a sigmoidoscope through your rectum and lower colon. The images are displayed on avideo screen. Polyps are removed, if possible, and sent to a lab for testing. Colonoscopy is the only screening test that lets your healthcare provider see the entire colon and rectum. This test also lets your healthcare provider remove any pieces of tissue that need to be looked at by a lab. If something suspicious is found using any other tests, you will likely need a colonoscopy. When to call your healthcare provider after a test Call your healthcare provider if you have any of the following after any screening test: Bleeding Fever of 100.4F (38C) or higher, or as directed by your healthcare provider Abdominal pain Vomiting Date Last Reviewed: 04/04/201519995547-1326 [employer]. [address] [place] [address]. All rights reserved. This information is not intended as a substitute for professional medical care. Always follow your healthcare professional's instructions. documented in this encounter Progress Notes * Pierer Hill DO - 06/26/2024 10:40 AM EST SUBJECTIVE: Milagros Mcgraw is a 68 year old female. Chief Complaint Patient presents with NEW PATIENT HPI: Patient is a 68 year old female with a history of HTN, Chronic pain, Chronic back pain, Chronic left knee pain, left knee replacement, Migraine Headaches, Glaucoma, Lumbar Spinal Stenosis, Attention Deficit Disorder, DDD cervical spine, GERD, SVT, GAsric Bypass to treat Obesity, and Hepatitis C that is here to establish care. The patient complains of chronic pain and myalgias. The patient was seen in the ED at [facility] on 06/21/2024 and was treated for SVT , and left knee swelling. SVT resolved withAdenosine. The patient had left knee aspiration and only a small amount of blood was aspirated. Thepatient has questionable knee prosthesis loosening on x-rays. The patient has history of GI bleeding due to anastomotic ulcer. She is taking up to ten 325 mg ASA daily for pain as well as Morphine. SHe has been out of Morphine for a few days. No chest pain or shortness of breath are present. Weightis down. Patient Active Problem List Diagnosis Chronic low [...] 1 Tablet before bedtime. 60 Tablet 0 No current facility-administered medications for this visit. The patient's medication list was reviewed and updated as needed. Past Medical History: Diagnosis Date Attention-deficit hyperactivity disorder, predominantly inattentive type 03/14/2024 Chronic back pain Chronic low back pain 03/04/2020 Chronic pain syndrome 04/08/2024 DDD (degenerative disc disease), cervical 03/14/2024 Depression Gastric bypass status for obesity 06/24/2024 Gastroesophageal reflux disease without esophagitis 04/08/2024 GI bleed Hypertension Migraine 03/04/2020 Personal history of gastric bypass Severe episode of recurrent major depressive disorder, without psychotic features ([facility]) 06/24/2024 Spinal stenosis of lumbar region with neurogenic claudication 03/14/2024 Status post total left knee replacement 06/24/2024 SVT (supraventricular tachycardia) ([facility]) 06/24/2024 Upper gastrointestinal bleed 03/04/2020 historical Past Surgical History: Procedure Laterality Date ARTHROPLASTY KNEE TOTAL Left EGD, FLEXIBLE, DIAGNOSTIC N/A 03/05/2020 ESOPHAGOGASTRODUODENOSCOPY (EGD), FLEXIBLE, TRANSORAL, DIAGNOSTIC performed by Cruz Cano DO at [facility] 2009 MISCELLANEOUS ORDER Right Ankle fracture repair PARTIAL HYSTERECTOMY [place] APPENDECTOMY N/A [place] ARTHROPLASTY GLENOHUMERAL JOINT TOTAL SHOULDER Right [place] CHOLECYSTECTOMY TOTAL HIP REPLACEMENT & PROSTHESIS Right Family History Problem Relation Name Age of Onset Bowel Cancer Mother Hypertension Mother Throat cancer Father Lung cancer Father Brain cancer Father No Known Problems Brother Other (traumatic brain injury) Son Diabetes Son Social History Tobacco Use Smoking status: Never Smokeless tobacco: Never Vaping Use Vaping status: Never Used Substance Use Topics Alcohol use: Not Currently Comment: occasional Drug use: Never Review of patient's allergies indicates: Allergen Reactions Bee Venom Anaphylaxis Other reaction(s): Other (document details in comments), Unspecified anaphylasis Sulfamethoxazole-Trimethoprim Anaphylaxis and Hives Other reaction(s): Other (document details in comments) Ciprofloxacin Other reaction(s): Other (See Comments) nightmares Milk (Cow) Other reaction(s): Other (See Comments) Bloating, IBS Other Allergy (See Comments) Adhesive Tape Review of Systems Constitutional: Positive for fatigue. Negative for appetite change, chills, fever and unexpected weight change. HENT: Negative for congestion, sore throat and trouble swallowing. Respiratory: Negative for cough, shortness of breath and wheezing. Cardiovascular: Negative for chest pain, palpitations and leg swelling. Gastrointestinal: Negative for abdominal pain, blood in stool, constipation, diarrhea, nausea and vomiting. Genitourinary: Negative for dysuria, frequency and hematuria. Musculoskeletal: Positive for arthralgias, back pain, myalgias and neck pain. Neurological: Positive for headaches. Negative for dizziness and syncope. Psychiatric/Behavioral: Negative for confusion, decreased concentration and sleep disturbance. OBJECTIVE: BP 140/74 (BP Site: Right Arm, BP Position: Sitting, BP Cuff Size: Regular) | Pulse 87 | Temp 99.5 F (37.5 C) (Tympanic) | Ht 5' 4" (1.626 m) | Wt 187 lb 11.2 oz (85.1 kg) | LMP (LMP Unknown) | SpO2 95% | BMI 32.22 kg/m | BSA 1.96 m Physical Exam Vitals and nursing note [...] No edema. Left lower leg: No edema. Neurological: Mental Status: She is alert and oriented to person, place, and time. Mental status is at baseline. Motor: No weakness. Gait: Gait abnormal. Psychiatric: Mood and Affect: Mood normal. Behavior: Behavior normal. Thought Content: Thought content normal. PLAN AND ASSESSMENT: Chronic pain syndrome (Primary) - POPULATION HEALTH REFERRAL OP - PHARMACIST MEDS THERAPY MGMT REFERRAL OP Continue Morphine for now Patient instructed to stop ASA due to history of Gastric bypass due to concern for future GI Bleed. Patient instructed not to take NSAIDS as well. Severe episode of recurrent major depressive disorder, without psychotic features (HCC) Continue Bupropion ER Migraine without status migrainosus, not intractable, unspecified migraine type Continue Sumatriptan as needed Attention-deficit hyperactivity disorder, predominantly inattentive type - COMPREHENSIVE METABOLIC PANEL; Future; Expected date: 06/24/2024 - CBC WITH WBC DIFFERENTIAL; Future; Expected date: 06/24/2024 - COMPREHENSIVE METABOLIC PANEL - CBC WITH WBC DIFFERENTIAL Primary open angle glaucoma (POAG) of both eyes, severe stage Continue Timoptic, and Zioptan per Optometry Chronic pain of left knee - ORTHOPAEDICS REFERRAL OP Status post total left knee replacement DDD (degenerative disc disease), cervical - PHYSICAL THERAPY REFERRAL OP Food insecurity HTN, goal below 140/90 Hepatitis C virus infection without hepatic coma, unspecified chronicity Spinal stenosis of lumbar region with neurogenic claudication - PHYSICAL THERAPY REFERRAL OP Special screening for malignant neoplasms, colon - COLONOSCOPY, GI REFERRAL OP Screening for osteoporosis - DEXA SCAN/BONE MINERAL AXIAL; Future; Expected date: 06/24/2024 Gastric bypass status for obesity - VITAMIN B12; Future; Expected date: 06/24/2024 - VITAMIN B12 SVT (supraventricular tachycardia) (HCC) If SVT returns will start Metoprolol ER Encounter for therapeutic drug monitoring - PAIN MANAGEMENT DRUG PANEL, URINE W/ INTERPRETATION; Future; Expected date: 06/24/2024 - PAIN MANAGEMENT DRUG PANEL, URINE W/ INTERPRETATION - EXTRA URINE ALIQUOT Screening for lipoid disorders - LIPID PANEL WITH DIRECT LDL IF TG IS HIGH; Future; Expected date: 06/24/2024 - LIPID PANEL WITH DIRECT LDL IF TG IS HIGH Tremor - TSH WITH FREE T4 IF INDICATED; Future; Expected date: 06/24/2024 - TSH WITH FREE T4 IF INDICATED Acute cystitis without hematuria - cefTRIAXone (Rocephin) (350 mg/mL) inj dilution 1,000 mg I spent a total of 40-54 minutes (exact time 50 mins) on the date of service in preparation, delivery, and documentation of the care provided to Milagros Mcgraw excluding any time spent in the performance of separately billed services or time spent by another provider/QHP. Follow-up: Return in about 1 month (around 07/25/2024), or if symptoms worsen or fail to improve. | Check-out note: Please schedule DEXA. Schedule colonosocpy Schedule with orthopedics for left knee pain post knee replacement Schedule with [place] pain management Pierre Hill DO 10:40 AM 06/26/2024 * Araceli Edwards RN - 06/24/2024 2:43 PM EST LAB DRA[place] AND [place] [facility] documented in this encounter Plan of Treatment Upcoming Encounters Date Type Department Care Team (Late st Contact Info) Description 06/27/2024 1:00 PM EST Scheduled Telephone Family Practice [address] [place] [address] [address] [place] [phone] Araceli Edwards, [place] [address] [place] [address] 08/01/2024 11:20 AM EST Office Visit Family Practice [address] [place] [address] [address] [place] [phone] Pierre Hill DO [address] [place] [address] 08/12/2024 2:00 PM EDT Office Visit Orthopaedics Spine Surgery [facility] [address] [place] [address] Hallie Faria CRNP [address] [place] [address] 10/07/2024 10:30 AM EDT Office Visit Otolaryngology [facility] [address] [place] [address] Nanci Schwarz MD [address] [place] [address] Jovanna Salcedo Au.D. [address] [place] [address] Pending Results Name Type Priority Associated Diagnoses Date /Time PAIN MANAGEMENT DRUG PANEL, URINE W/ INTERPRETATION Lab Routine Encounter for therapeutic drug monitoring 06/24/2024 2:52 PM EST Scheduled Orders Name Type Priority Associated Diagnoses Orde r Schedule DEXA SCAN/BONE MINERAL AXIAL Medical Imaging Routine Screening for osteoporosis Expected: 06/24/2024, Expires: 07/25/2025 PAIN MANAGEMENT DRUG PANEL, URINE W/ INTERPRETATION Lab Routine Encounter for therapeutic drug monitoring Expected: 06/24/2024, Expires: 06/24/2025 Scheduled Referrals Name Type Priority Associated Diagnoses Orde r Schedule COLONOSCOPY, GI REFERRAL OP Referral Within 30 days (routine) Special screening for malignant neoplasms, colon Ordered: 06/24/2024 POPULATION HEALTH REFERRAL OP Referral Within 10 days (routine) Chronic pain syndrome Ordered: 06/24/2024 PHYSICAL THERAPY REFERRAL OP Referral Within 10 days (routine) DDD (degenerative disc disease), cervical Spinal stenosis of lumbar region with neurogenic claudication Ordered: 06/24/2024 ORTHOPAEDICS REFERRAL OP Referral Within 10 days (routine) Chronic pain of left knee Ordered: 06/24/2024 PHARMACIST MEDS THERAPY MGMT REFERRAL OP Referral Within 10 days (routine) Chronic pain syndrome Ordered: 06/24/2024 Health Maintenance Due Date Last Done Comments DXA Scan 1956 Hepatitis C Screening 1974 Cologuard 2001 Colonoscopy 2001 Sigmoidoscopy 2001 Zoster Vaccines (1 of 2) 2006 Colorectal Cancer Screening 06/26/2010 Fecal Occult Blood Test 06/26/2010 06/26/2009 Mammogram 09/28/2012 09/29/2011 Adult Wellness Visit 2022 Depression Monitoring 06/24/2025 06/24/2024 GFR 06/24/2025 06/24/2024, 12/2023, 03/07/2024, Additional history exists Albumin/Creatinine Ratio [...] Not on filedocumented as of this encounter Procedures Procedure Name Priority Date/Time Associated Diagnosis Comments EXTRA URINE ALIQUOT Routine 06/24/2024 2 :52 PM EST Encounter for therapeutic drug monitoring DIFFERENTIAL, AUTOMATED Routine 06/24/2024 2:43 PM EST Attention-deficit hyperactivity disorder, predominantly inattentive type TSH WITH FREE T4 IF INDICATED Routine 06/24/2024 2:43 PM EST Tremor LIPID PANEL WITH DIRECT LDL IF TG IS HIGH Routine 06/24/2024 2:43 PM EST Screening for lipoid disorders COMPREHENSIVE METABOLIC PANEL Routine 06/24/2024 2:43 PM EST Attention-deficit hyperactivity disorder, predominantly inattentive type CBC Routine 06/24/2024 2:43 PM EST Attention-deficit hyperactivity disorder, predominantly inattentive type CBC Routine 06/24/2024 2:43 PM EST Attention-deficit hyperactivity disorder, predominantly inattentive type VITAMIN B12 Routine 06/24/2024 2:43 PM EST Gastric bypass status for obesity documented in this encounter Results * EXTRA URINE ALIQUOT (06/24/2024 2:52 PM EST) Urine Urine specimen / Unknown Non-blood Collection / Unknown 06/24/2024 2:52 PM EST 06/24/2024 2:52 PM EST us Pierre Hill DO LAB URINE ORDERABLES Final Res ult [facility] [address] [place] [address] * DIFFERENTIAL, AUTOMATED (06/24/2024 2:43 PM EST) WBC 6.17 4.00 - 10.80 K/uL 06/24/2024 11:07 PM EST [facility] Neutrophils % 54.7 40.0 - 75.0 % 06/24/2024 11:07 PM EST [facility] Lymphocytes % 31.3 18.0 - 42.0 % 06/24/2024 11:07 PM EST [facility] Monocytes % 8.9 1.0 - 11.0 % 06/24/2024 11:07 PM EST [facility] Eosinophils % 3.2 0.0 - 6.0 % 06/24/2024 11:07 PM EST [facility] Basophils % 1.1 0.0 - 2.0 % 06/24/2024 11:07 PM EST [facility] Immature Granulocytes % 0.8 0.0 - 2.0 % 06/24/2024 11:07 PM EST [facility] Absolute Neutrophils 3.37 1.80 - 7.70 K/uL 06/24/2024 11:07 PM EST [facility] Absolute Lymphocytes 1.93 1.00 - 4.80 K/ul 06/24/2024 11:07 PM EST [facility] Absolute Monocytes 0.55 0.00 - 1.10 K/uL 06/24/2024 11:07 PM EST [facility] Absolute Eosinophils 0.20 0.00 - 0.70 K/uL 06/24/2024 11:07 PM EST [facility] Absolute Basophils 0.07 0.00 - 0.20 K/uL 06/24/2024 11:07 PM EST [facility] Absolute Immature Granulocytes 0.05 0.00 - 0.20 K/uL 06/24/2024 11:07 PM EST [facility] Blood Venous blood specimen / Unknown Venipuncture / Unknown 06/24/2024 2:43 PM EST 06/24/2024 2:43 PM EST us Pierre Hill DO LAB BLOOD ORDERABLES Final Res ult [facility] [address] [place] [address] * (ABNORMAL) CBC (06/24/2024 2:43 PM EST) WBC 6.17 4.00 - 10.80 K/uL 06/24/2024 11:07 PM EST [facility] RBC 4.79 3.85 - 5.15 M/uL 06/24/2024 11:07 PM EST [facility] HGB 12.5 12.0 - 15.3 g/dL 06/24/2024 11:07 PM EST [facility] HCT 42.1 36.0 - 45.2 % 06/24/2024 11:07 PM EST [facility] MCV 87.9 81.5 - 97.5 fL 06/24/2024 11:07 PM EST [facility] MCH 26.1 27.0 - 34.0 pg 06/24/2024 11:07 PM EST [facility] MCHC 29.7 32.0 - 36.0 g/dL 06/24/2024 11:07 PM EST [facility] RDW 17.8 11.5 - 15.5 % 06/24/2024 11:07 PM EST [facility] PLT 485(H) 140 - 400 K/uL 06/24/2024 11:07 PM EST [facility] MPV 8.9 6.6 - 11.1 fL 06/24/2024 11:07 PM EST [facility] nRBCs 0 <=0 /100 WBCs 06/24/2024 11:07 PM EST [facility] Blood Venous blood specimen / Unknown Venipuncture / Unknown 06/24/2024 2:43 PM EST 06/24/2024 2:43 PM EST Pierre Hill DO LAB BLOOD ORDERABLES Final Res ult Performing Organization Address City/[facility]/ZIP Co de Phone Number [facility] [address] [place] [address] * TSH WITH FREE T4 IF INDICATED (06/24/2024 2:43 PM EST) Pathologist [facility] [place] TSH 1.50 0.27 - 4.20 uIU/mL 06/25/2024 1:30 AM EST [facility] Blood Venous blood specimen / Unknown Venipuncture / Unknown 06/24/2024 2:43 PM EST 06/24/2024 2:43 PM EST Pierre Hill DO LAB BLOOD ORDERABLES Final Res ult Performing Organization Address City/[facility]/ZIP Co de Phone Number [facility] [address] [place] [address] * (ABNORMAL) LIPID PANEL WITH DIRECT LDL IF TG IS HIGH (06/24/2024 2:43 PM EST) Triglycerides 80 <=174 mg/dL 06/25/2024 12:54 AM EST [facility] Comment: Triglyceride Reference Ranges (mg/dL): <150 Acceptable 150-174 Borderline high 175-499 High >=500 Very high Cholesterol 202(H) <200 mg/dL 06/25/2024 12:54 AM EST [facility] Comment: Total Cholesterol Reference Ranges (mg/dL): <200 Desirable 200-239 Borderline high >=240 High HDL Cholesterol 105 >49 mg/dL 12:54 AM EST [facility] Comment: HDL Cholesterol Reference Ranges (mg/dL): >=60 High (Desirable) <50 Low (Undesirable) For Females <40 Low (Undesirable) For Males Non-HDL Cholesterol 97 <=159 mg/dL 06/25/2024 12:54 AM EST [facility] Comment: Non-HDL Cholesterol Reference Range (mg/dL): <100 Target level for high risk ASCVD patient <130 Optimal for general population 130-159 Near optimal for general population 160-189 Borderline High 190-219 High >=220 Very High LDL Cholesterol 81 <=129 mg/dL 06/25/2024 12:54 AM EST [facility] Comment: LDL Cholesterol Reference Ranges (mg/dL): <70 Target level for high risk ASCVD patient <100 Optimal for general population 100-129 Near optimal for general population 130-159 Borderline high 160-189 High >=190 Very high Blood Venous blood specimen / Unknown Venipuncture / Unknown 06/24/2024 2:43 PM EST 06/24/2024 2:43 PM EST Pierre Hill DO LAB BLOOD ORDERABLES Final Res ult Performing Organization Address City/[facility]/ZIP Co de Phone Number [facility] [address] [place] [address] * VITAMIN B12 (06/24/2024 2:43 PM EST) Vitamin B12 399 232 - 1,245 pg/mL 06/25/2024 1:30 AM EST [facility] Blood Venous blood specimen / Unknown Venipuncture / Unknown 06/24/2024 2:43 PM EST 06/24/2024 2:43 PM EST Pierre Hill DO LAB BLOOD ORDERABLES Final Res ult [facility] [address] [place] [address] * COMPREHENSIVE METABOLIC PANEL (06/24/2024 2:43 PM EST) BUN 12 6 - 20 mg/dL 06/25/2024 12:54 AM EST [facility] CREATININE 0.6 0.5 - 1.0 mg/dL 06/25/2024 12:54 AM EST [facility] EGFR >90 >=60 mL/min 06/25/2024 12:54 AM EST [facility] Comment:eGFR is calculated b ased on the CKD-EPI 2020 equation. SODIUM 139 135 - 146 mmol/L 06/25/2024 12:54 AM EST [facility] POTASSIUM 3.9 3.5 - 5.1 mmol/L 06/25/2024 12:54 AM EST [facility] CHLORIDE 101 98 - 107 mmol/L 06/25/2024 12:54 AM EST [facility] CO2 24 22 - 32 mmol/L 06/25/2024 12:54 AM EST [facility] ANION GAP 14 7 - 15 mmol/L 06/25/2024 12:54 AM EST [facility] GLUCOSE 76 70 - 120 mg/dL 06/25/2024 12:54 AM EST [facility] Albumin 4.1 3.8 - 5.0 g/dL 06/25/2024 12:54 AM EST [facility] AST 23 10 - 35 U/L 06/25/2024 12:54 AM EST [facility] Alkaline Phosphatase 100 35 - 130 U/L 06/25/2024 12:54 AM EST [facility] Bilirubin, Total 0.3 <=1.2 mg/dL 06/25/2024 12:54 AM EST [facility] CALCIUM 9.2 8.4 - 10.2 mg/dL 06/25/2024 12:54 AM EST [facility] Protein 7.1 6.0 - 8.3 g/dL 06/25/2024 12:54 AM EST [facility] ALT 16 10 - 35 U/L 06/25/2024 12:54 AM EST [facility] Blood Venous blood specimen / Unknown Venipuncture / Unknown 06/24/2024 2:43 PM EST 06/24/2024 2:43 PM EST us Pierre Hill DO LAB BLOOD ORDERABLES Final Res ult [facility] [address] [place] [address] documented in this encounter Visit Diagnoses Diagnosis Chronic pain syndrome- Primary Severe episode of recurrent major depressive disorder, without psychotic features (HCC) Migraine without status migrainosus, not intractable, unspecified migraine type Attention-deficit hyperactivity disorder, predominantly inattentive type Attention deficit disorder without mention of hyperactivity Primary open angle glaucoma (POAG) of both eyes, severe stage Chronic pain of left knee Pain in joint, lower leg Status post total left knee replacement DDD (degenerative disc disease), cervical Degeneration of cervical intervertebral disc Food insecurity HTN, goal below 140/90 Unspecified essential hypertension Hepatitis C virus infection without hepatic coma, unspecified chronicity Spinal stenosis of lumbar region with neurogenic claudication Spinal stenosis, lumbar region, with neurogenic claudication Special screening for malignant neoplasms, colon Screening for osteoporosis Special screening for osteoporosis Gastric bypass status for obesity Bariatric surgery status SVT (supraventricular tachycardia) (HCC) Other specified cardiac dysrhythmias Encounter for therapeutic drug monitoring Screening for lipoid disorders Tremor Abnormal involuntary movements Acute cystitis without hematuria Acute cystitis documented in this encounter Advance Directives * [...] Power of Attor diallo? No Care Teams Teletype Clerk Relationship Specialty Start Date End Date Pierre Hill DO [address] [place] [address] PCP - General Internal Medicine 06/24/24 documented as of this encounter
--- OUTSIDE RECORDS SUMMARY | 2024-08-04 09:01 | External Medical Summary | Summary of Care ---
Author Name Unknown Organization [facility] Address [address] [place] [address] Phone [phone] Care Team Providers Care Planning Director Name Role Phone Mitchell Hill DO Primary Care Provider [phone] Reason for Visit * Reason Onset Date Comments Medication Refill 06/24/2024 Encounter Details Date Type Department Care Team (Late st Contact Info) Description 06/24/2024 Refill Family Practice [address], [place] [address] [place] [phone] Mitchell Hill DO [address] [place] [address] Chronic pain syndrome*; Chronic pain of left knee Allergies Active [...] as of this encounter (statuses as of 06/24/2024) Medications buPROPion HCl ER (XL) 300 MG Oral Tablet Extended Release 24 Hour (Wellbutrin XL) take 1 tablet by mouth every day in the am with 150mg to make 450mg 90 Tablet 2 08/19/19 24 Active Gabapentin 600 MG Oral Tablet (Neurontin) take 2 tablets by mouth three times daily 540 Tablet 1 5 12:01 PM EST 09/11/19 24 Active Additional Information Patient taking differently: 1,800 mg Oral BID (.AM/PM), Reported on 06/24/2024 EPINEPHrine 0.3 MG/0.3ML Injection Solution Auto-injector (Autoinjector) USE DIRECTED 6 Each 3 03/08/20 24 Active Tafluprost (PF) 0.0015 % Ophthalmic Solution [...] (Up to 3000 mg per day) Active Aspirin 500 MG Oral Tablet Take 5 Tablets by mouth as needed for Pain. Active Arexvy 120 MCG/0.5ML Intramuscular Suspension Reconstituted (RSV PreF3 Vac Recomb Adjuvanted)Indica tions:Need for RSV vaccination Inject 0.5 mL into a large muscle once for 1 dose. 1 Each 5 3:19 PM EST 06/24/19 25 025 Active Morphine Sulfate ER 15 MG Oral Tablet Extended Release (Ms Contin)Indication s:Chronic pain syndrome,Chronic pain of left knee Take 1 Tablet by mouth in the morning and 1 Tablet before bedtime. 60 Tablet 06/24/19 25 Active Morphine Sulfate ER 15 MG Oral Tablet Extended Release (Ms Contin) Take 1 Tablet by mouth in the morning and 1 Tablet before bedtime. 60 Tablet 05/18/20 24 025 Discontin ued(Refil l) Hospital, Clinic, or Other Facility Administered Medication Ordered Dose Route Frequency Start Date End Date Status cefTRIAXone (Rocephin) (350 mg/mL) inj dilution 1,000 mgIndications:Acute cystitis without hematuria 1000 mg IM ONCE 06/24/2024 Active documented as of this encounter (statuses as of 06/24/2024) Active Problems Problem Noted Date Diagnosed Date Severe episode of recurrent major depressive [...] as of this encounter (statuses as of 06/24/2024) Resolved Problems Problem Noted Date Diagnosed Date [...] as of this encounter (statuses as of 06/24/2024) Immunizations Name Administration Dates Next Due COVID-19 mRNA, LNP-s, No Pre serve, 2-Dose Series ([employer]ios[employer]ia) 08/31/2022,08/30/2020,07/30/2020 COVID-19, MRNA-LNP, PF, 30 M CG/0.3 mL, 12 YRS AND ABOVE, IM (PFIZER-Comirnaty) 03/14/2024 Covid-19, Mrna, Lnp-s, Pf, B ivalent, 30 Mcg, IM, 12 yrs and above (Pfizer) 09/23/2022 Pneumococcal Conjugate Vacc, 13 Valent (Prevnar) 05/23/2015 Pneumococcal Conjugate Vacci ne, 20-valent ([id number]) 06/24/2024 Pneumococcal Polysaccharide PPV23 (Pneumovax) 02/16/2014,04/25/2008 RSV [...] Telephone Encounter - Mitchell Hill DO - 06/24/2024 3:13 PM ESTSigned Prescriptions: Disp Refills Morphine Sulfate ER 15 MG Oral Tablet Exte*60 Tab*0 Sig: Take 1 Tablet by mouth in the morning and 1 Tablet before bedtime.Authorizing Provider: MITCHELL HILL----- * Telephone Encounter - Mitchell Hill DO - 06/24/2024 3:12 PM EST I have reviewed the patients controlled substance dispensing history in the Prescription Drug Monitoring Program in compliance with the [facility] regulations before prescribing a controlled substance. [...] U Positive (A) Oxycodone Screen, U Negative Valid Interpretation Normal Creatinine, U 51 Narrative Cutoff [...] Confirmatory testing is available upon request. Medication is due documented in this encounter Plan of Treatment Upcoming Encounters Date Type Department Care Team (Late st Contact Info) Description 06/27/2024 1:00 PM EST Scheduled Telephone Family Practice [address], [place] [address] [place] [address] Araceli Edwards RN [address] [place] [address] 08/01/2024 11:20 AM EST Office Visit Family Practice [address] [place] [address] [address] [place], [place] [address] Mitchell Hill, 293 [facility], [place] [address] 08/12/2024 2:00 PM EDT Office Visit Orthopaedics Spine Surgery [facility] [address] [place] [phone] Hallie Faria CRNP [address] [place] [address] 10/07/2024 10:30 AM EDT Office Visit Otolaryngology [facility] [address] [place] [address] Nanci Schwarz MD [address] [place] [address] Jovanna Salcedo Au.D. [address] [place] [address] Health Maintenance Due Date Last Done Comments DXA Scan 1956 Hepatitis C Screening 1974 Cologuard 2001 Colonoscopy 2001 Sigmoidoscopy 2001 Zoster Vaccines (1 of 2) 2006 Colorectal Cancer Screening 06/26/2010 Fecal Occult Blood Test 06/26/2010 06/26/2009 Mammogram 09/28/2012 09/29/2011 Adult Wellness Visit 2022 GFR 03/08/2025 03/08/2024, 11/2023, 03/05/2021, Additional history exists Depression Monitoring 06/24/2025 06/24/2024 Albumin/Creatinine Ratio 11/18/2026 11/19/2023 Diabetes Screening 03/08/2027 03/08/2024, 1 , 03/05/2021, Additional history exists DTap/Tdap Vaccines (2 - Td or Tdap) 02/24/2029 02/24/2019 Lipid Panel 03/14/2029 03/14/2024, 03/05/2021 COVID-19 Vaccine Completed 03/14/2024, , 08/31/2022, [...] Visit Diagnoses Diagnosis Chronic pain syndrome- Primary Chronic pain of left knee Pain [...] Power of Attor diallo? No Care Teams Planning Director Relationship Specialty Start Date End Date Mitchell Hill DO [address] [place] [address] PCP - General Internal Medicine 06/24/24 documented as of this encounter
--- OUTSIDE RECORDS SUMMARY | 2024-08-04 09:01 | External Medical Summary ---
Author Name Unknown Address Unknown Organization [id number]:[facility] [place] - [address] [facility] [address] Laboratory Report Ordering Provider Test Date Status ROSA MEDRANO 06/24/2024 14:43:22 Final Observation Date Value Abnormality Reference (Units ) Status Triglyceride 06/24/2024 14:43:22 80 <=174 ( mg/dL) Final Triglyceride Reference Range s (mg/dL):
<150 Acceptable
150-174 Borderline high
175-499 High
>=500 Very high Cholesterol 06/24/2024 14:43:22 202 Above high normal <200 (mg/dL) Final Total Cholesterol Reference Ranges (mg/dL):
<200 Desirable
200-239 Borderline high
>=240 High HDL 06/24/2024 14:43:22 105 >49 (mg/dL ) Final HDL Cholesterol Reference Ra nges (mg/dL):
>=60 High (Desirable)
<50 Low (Undesirable) For Females
<40 Low (Undesirable) For Males NON-HDL CHOLESTEROL 06/24/2024 14:43:22 97 <=159 (mg/dL) Final Non-HDL Cholesterol Referenc e Range (mg/dL):
<100 Target level for high risk ASCVD patient
<130 Optimal for general population
130-159 Near optimal for general population
160-189 Borderline High
190-219 High
>=220 Very High LDL, (calculated) 06/24/2024 14:43:22 81 <= 129 (mg/dL) Final LDL Cholesterol Reference Ra nges (mg/dL):
<70 Target level for high risk ASCVD patient
<100 Optimal for general population
100-129 Near optimal for general population
130-159 Borderline high
160-189 High
>=190 Very high Performing Location LABORATORY [facility] [place] - [address] [facility] [address]
--- OUTSIDE RECORDS SUMMARY | 2024-08-04 09:01 | External Medical Summary | Summary of Care ---
Author Name Unknown Organization [facility] Address [address] [place] [address] Phone [phone] Care Team Providers Care Blue Line Operator Name Role Phone Pierre Hill DO Primary Care Provider [phone] Reason for Visit * Reason Onset Date Comments Encounter Created in Error 06/24/2024 Encounter Details Date Type Department Care Team (Late st Contact Info) Description 06/24/2024 Telephone Family Practice [address], [place] [address] [place] [address] Pierre Hill DO [address] [place] [address] Encounter Created in Error Allergies Active Allergy Reactions Criticality Noted Date [...] 5 2:26 PM EST 06/13/19 25 Active Cefuroxime Axetil 500 MG Oral [...] muscle once for 1 dose. 1 Each 3:19 PM EST 06/24/19 025 Active Morphine Sulfate ER 15 MG [...] mRNA, LNP-s, No Pre serve, 2-Dose Series ([employer]) 08/31/2022,08/30/2020,07/30/2020 COVID-19, MRNA-LNP, PF, 30 M CG/0.3 mL, 12 YRS AND ABOVE, IM ([employer]-Comirnat) 03/14/2024 Covid-19, Mrna, Lnp-s, Pf, B ivalent, 30 Mcg, IM, 12 yrs and above ([employer]) 09/23/2022 Pneumococcal Conjugate Vacc, 13 Valent (Prevnar) 05/23/2015 Pneumococcal Conjugate Vacci ne, 20-valent ([id number]) 06/24/2024 Pneumococcal Polysaccharide PPV23 (Pneumovax) 02/16/2014,04/25/2008 RSV [...] Date Author Yes 03/07/2024 3:06 PM EDT Kkii Lang RN documented in this encounter Miscellaneous Notes * Telephone Encounter - Jacqueline Derw RN - 06/24/2024 3:06 PM EST error documented in this encounter Plan of Treatment Upcoming Encounters Date Type Department Care Team (Late st Contact Info) Description 06/27/2024 1:00 PM EST Scheduled Telephone Family Practice [address] [facility] [address] [place] [phone] Araceli Edwards, [place] [address] [place] [phone] 08/01/2024 11:20 AM EST Office Visit Family Practice [address] [facility] [address] [place] [phone] Pierre Hill DO [address] [place] [address] 08/12/2024 2:00 PM EDT Office Visit Orthopaedics Spine Surgery [facility] [address] [place] [phone] Hlalie Faria CRNP [address] [address] 10/07/2024 10:30 AM EDT Office Visit Otolaryngology [facility] [address] [place] [address] Nanci Schwarz MD [address] [place] [address] Jovanna Salcedo Au.D. [address] [place] [address] Health Maintenance Due Date Last Done Comments [...] Power of Attor diallo? No Care Teams Blue Line Operator Relationship Specialty Start Date End Date Pierre Hill DO [address] [facility] [place] [place] [address] PCP - General Internal Medicine 06/24/24 documented as of this encounter
--- OUTSIDE RECORDS SUMMARY | 2024-08-04 09:01 | External Medical Summary ---
Author Name Unknown Address Unknown Organization K01:LABORATORY [facility] [place] - [address] [facility] [address] Laboratory Report Ordering Provider Test Date Status ROSA MEDRANO 06/24/2024 14:43:22 Final Observation Date Value Abnormality Reference (Units ) Status SYNC LEUKOCYTES IN BLOOD BY AUTOMATED COUNT 06/24/2024 14:43:22 6.17 4.00-10.80 (K/uL) Final Segs 06/24/2024 14:43:22 54.7 40.0-75.0 (%) Final Lymphs % 06/24/2024 14:43:22 31.3 18.0-42.0 (%) Final Monos 06/24/2024 14:43:22 8.9 1.0-11.0 (%) Final Eosinophils 06/24/2024 14:43:22 3.2 0.0-6.0 (%) Final Basos 06/24/2024 14:43:22 1.1 0.0-2.0 (%) Final Immature Granulocyte, Percent 06/24/2024 14:43:22 0.8 0.0-2.0 (%) Final Absolute Segs 06/24/2024 14:43:22 3.37 1.80-7.70 (K/uL) Final Lymphs, absolute 06/24/2024 14:43:22 1.93 1.00-4.80 (K/ul) Final Monos, Abs 06/24/2024 14:43:22 0.55 0.00-1.10 (K/uL) Final Eos, Abs 06/24/2024 14:43:22 0.20 0.00-0.70 (K/uL) Final Basos, Abs 06/24/2024 14:43:22 0.07 0.00-0.20 (K/uL) Final Immature Granulocytes, Number 06/24/2024 14:43:22 0.05 0.00-0.20 (K/uL) Final Performing Location LABORATORY [facility] [place] - [address] [facility] [address]
--- OUTSIDE RECORDS SUMMARY | 2024-08-04 09:01 | External Medical Summary ---
Author Name Unknown Address Unknown Organization K01:LABORATORY [facility] [place] - [address] [facility] [address] Laboratory Report Ordering Provider Test Date Status ROSA MEDRANO 06/24/2024 14:52:06 Final Drugs that require complianc e testing:

Opioids:
Morphine: Quantity 15 mg Date/Time of last Dose 2 days ago

Benzodiazepines
None

Cutoff Concentrations:
Drug Level
Amphetamines 500 ng/mL
Benzodiazepines 100 ng/mL
Cannabinoids 50 ng/mL
Cocaine Metabolite 150 ng/mL
Fentanyl 1 ng/mL
Hydrocodone / Hydromorphone 300 ng/mL
Methadone Metabolite 100 ng/mL
Morphine / Codeine 300 ng/mL
Oxycodone / Oxymorphone 100 ng/mL

Screening results are presumptive and can only be used for medical purposes. Confirmatory testing is available upon request. Observation Date Value Abnormality Reference (Units) Status COMPLIANCE INTERPRETATION 06/24/2024 14:52:06 Based on the medication information provided: Final COMPLIANCE INTERPRETATION 06/24/2024 14:52:06 The positive morphine/codeine screening result is CONSISTENT with morphine use. Confirmatory testing is available upon request. Final Changed Report: Previously r eported on 06/27/2024 at 1040 EST. See Results History in EPIC for previous versions of the report. Amphetamines, Urine screen 06/24/2024 14:52:06 Negative Negative Final Benzodiazepines, Urine screen 06/24/2024 14:52:06 Negative Negative Final Cannabinoids, Urine screen 06/24/2024 14:52:06 Negative Negative Final Cocaine Metabolite, Urine screen 06/24/2024 14:52:06 Negativ e Negative Final fentaNYL [Presence] in Urine by Screen method 06/24/2024 14:52:06 Negative Negative Final HYDROcodone [Presence] in Ur ine by Screen method 06/24/2024 14:52:06 Negative Negative Mary l 8-Uzdnsjhcmq-6,6-Fpigztyg-4, 3-Di phenylpyrrolidine (EDDP) [Presence] in Urine 06/24/2024 14:52:06 Negative Negative F inal Opiates, Urine screen 06/24/2024 14:52:06 Positive Abnormal Negative Final oxyCODONE [Presence] in Urin e by Screen method 06/24/2024 14:52:06 Negative Negative Final FORENSIC VALID INTERPRETATION 06/24/2024 14:52:06 Normal Final Creatinine, Urine 06/24/2024 14:52:06 41 (m g/dL) Final Performing Location LABORATORY [facility] [place] - [address] [facility] [address]
--- OUTSIDE RECORDS SUMMARY | 2024-08-04 09:01 | External Medical Summary ---
Author Name Unknown Address Unknown Organization K01:LABORATORY [facility] [place] - [address] [facility] [address] Laboratory Report Ordering Provider Test Date Status MITCHELLROSA 06/24/2024 14:43:22 Final Observation Date Value Abnormality Reference (Units ) Status TSH 06/24/2024 14:43:22 1.50 0.27-4.20 (uIU/mL) Final Performing Location LABORATORY C - [address] [facility] [address]
--- OUTSIDE RECORDS SUMMARY | 2024-08-04 09:01 | External Medical Summary ---
Author Name Unknown Address Unknown Organization K01:[place]ORY [facility] [place] [address] [facility] [address] Laboratory Report Ordering Provider Test Date Status ROSA MEDRANO 06/24/2024 14:43:22 Final Observation Date Value Abnormality Reference (Units ) Status BUN 06/24/2024 14:43:22 12 6-20 (mg/dL) Final Creatinine 06/24/2024 14:43:22 0.6 0.5-1.0 (mg/dL) Final Glomerular filtration rate/1.73 sq M.predicted [Volume Rate/Area] in Serum, Plasma or Blood by Creatinine-based formula (CKD-EPI) 06/24/2024 14:43:22 >90 >=60 (mL/min) Final eGFR is calculated based on the CKD-EPI 2020 equation. Sodium 06/24/2024 14:43:22 139 135-146 (m mol/L) Final Potassium 06/24/2024 14:43:22 3.9 3.5-5.1 (m mol/L) Final Cl 06/24/2024 14:43:22 101 98-107 (mm ol/L) Final CO2 06/24/2024 14:43:22 24 22-32 (mmo l/L) Final Anion gap 06/24/2024 14:43:22 14 7-15 (mmol /L) Final Glucose 06/24/2024 14:43:22 76 70-120 (mg /dL) Final Albumin 06/24/2024 14:43:22 4.1 3.8-5.0 (g /dL) Final AST (Aspartate aminotransferase) 06/24/2024 14:43:22 23 10-35 (U/L) Final Alk Phos 06/24/2024 14:43:22 100 35-130 (U/ L) Final Bilirubin, Total 06/24/2024 14:43:22 0.3 <=1 .2 (mg/dL) Final Calcium 06/24/2024 14:43:22 9.2 8.4-10.2 ( mg/dL) Final Protein 06/24/2024 14:43:22 7.1 6.0-8.3 (g /dL) Final ALT (Alanine aminotransferase) 06/24/2024 14:43:22 16 10-35 (U/L) Final Performing Location [facility] [facility] [place] [address] [facility] [address]
--- OUTSIDE RECORDS SUMMARY | 2024-08-04 09:02 | External Medical Summary | Summary of Care ---
Author Name Unknown Organization [facility] Address [address] [place] [address] Phone [phone] Care Team Providers Care Registered Public Health Nurse Name Role Phone Demetrio Polanco DO Primary Care Provider Reason for Visit * Reason Onset Date Comments Encounter Created in Error 06/23/2024 Encounter Details Date Type Department Care Team (Late st Contact Info) Description 06/23/2024 Telephone Family Practice [address] [facility] [place] [address] [place] [address] Demetrio Polanco DO [address] [place] [address] Encounter Created in Error Allergies Active Allergy [...] as of this encounter (statuses as of 06/23/2024) Medications Melatonin 10 MG Oral Tablet Take 2 Tablets by mouth at bedtime. Active Latanoprost 0.005 % Ophthalmic Solution (Xalatan) 1 Drop in the morning. Active Bimatoprost 0.03 % External Solution (Latisse) 2 Active buPROPion HCl ER (XL) 300 MG Oral Tablet Extended Release 24 Hour (Wellbutrin XL) take 1 tablet by mouth every day in the am with 150mg to make 450mg 90 Tablet 2 4 Active Gabapentin 600 MG Oral Tablet (Neurontin) take 2 tablets by mouth three times daily 540 Tablet 1 06/20/2024 12:01 PM EST 4 Active B Complex Vitamins Oral Capsule Take 1 Capsule by mouth in the morning. Active Multi-Vitamin HP/Minerals Oral Capsule Take by mouth. Active EPINEPHrine 0.3 MG/0.3ML Injection Solution Auto-injector (Autoinjector) USE DIRECTED 6 Each 3 4 Active Tafluprost (PF) 0.0015 % Ophthalmic Solution (Zioptan) Instill into eye at bedtime. Active NATURAL SUPPLEMENT Take by mouth daily. Sisal Brain Vitality Active traZODone HCl 150 MG Oral Tablet (Desyrel) Take 1 Tablet by mouth at bedtime. Takes 2/3 of a tab at bedtime Active Timolol Maleate 0.25 % Ophthalmic Solution (Timoptic) Instill 1 Drop into both eyes in the morning. 4 Active SUMAtriptan Succinate 100 MG Oral Tablet (Imitrex) Take 1 tablet at onset of migraine may repeat dose 2 hours later as needed for migraine headache maximum 200 mg per 24 hour 10 Tablet 2 4 Active Morphine Sulfate ER 15 MG Oral Tablet Extended Release (Ms Contin) Take 1 Tablet by mouth in the morning and 1 Tablet before bedtime. 60 Tablet 4 Active buPROPion HCl ER (XL) 150 MG Oral Tablet Extended Release 24 Hour (Wellbutrin XL)Indications:E pisode of recurrent major depressive disorder, unspecified depression episode severity (HCC) Take 1 Tablet by mouth in the morning. 90 Tablet 3 5 Active Pepto-Bismol 262 MG Oral Tablet (Bismuth Subsalicylate) Take 2 Tablets by mouth 3 times a day. Active Pantoprazole Sodium 40 MG Oral Tablet Delayed Release (Protonix)Indica tions:Gastroesop hageal reflux disease without esophagitis Take 1 Tablet by mouth in the morning and 1 Tablet before bedtime. 120 Tablet 06/14/2024 2:26 PM EST 5 Active documented as of this encounter (statuses as of 06/23/2024) Active Problems Problem Noted Date Diagnosed Date Food insecurity 04/11/2024 Overview: Per [facility] Protocol Chronic pain syndrome 04/08/2024 Gastroesophageal reflux disease without esophagi tis 04/08/2024 Postmenopausal status, age-related 03/20/2024 Vitamin D deficiency 03/20/2024 Controlled substance agreement signed 03/20/2024 Opioid dependence with withdrawal 03/14/2024 Primary open-angle glaucoma, right eye, severe s tage 03/14/2024 Attention-deficit hyperactiv ity disorder, predominantly inattentive type 03/14/2024 Spinal stenosis of lumbar re gion with neurogenic claudication 03/14/2024 DDD (degenerative disc disease), cervical 2023 Near syncope 03/07/2024 Complicated UTI (urinary tract infection) 2023 Chronic low back pain 03/04/2020 Migraine 03/04/2020 HTN, goal below 140/90 03/04/2020 Depression 03/04/2020 documented as of this encounter (statuses as of 06/23/2024) Resolved Problems Problem Noted Date Diagnosed Date Resolved Date Acute respiratory failure with hypoxia 03/14/2024 03/14/2024 Primary open angle glaucoma (POAG) 03/14/2024 03/21/2024 Overview (03/21/2024): More specified on pl Right eye, severe stage Upper gastrointestinal bleed 03/04/2020 03/21/2024 Overview (03/21/2024): historical documented as of this encounter (statuses as of 06/23/2024) Immunizations Name Administration Dates Next Due COVID-19, MRNA-LNP, PF, 30 M CG/0.3 mL, 12 YRS AND ABOVE, IM (PFIZER-Comirnaty) 03/14/2024 Seasonal Influenza, High Dos e, Trivalent, PF, IM (Fluzone HD) 03/14/2024 documented as of this encounter Social History Tobacco Use Types Packs/Day Years Used Date Smoking Tobacco: Never Smokeless Tobacco: Never Alcohol Use Standard Drinks/Week Comments Not Currently 0 (1 standard drink = 0.6 oz pur e alcohol) occasional PHQ-2 Answer Date Recorded PHQ Adult Total Score 2 04/08/2024 Hunger Vital Sign Answer Date Recorded Within the past 12 months, y ou worried that your food would run out before you got the money to buy more. Sometimes true Within the past 12 months, t he food you bought just didn't last and you didn't have money to get more. Sometimes true 12/2023 Childcare Answer Date Recorded Do you feel overwhelmed with taking care of a child, family member or friend? No 04/08/2024 Does your family need help f inding childcare? (Household - for ages 0-17 years) Not on file 04/08/2024 Clothing Answer Date Recorded Have you been unable to get clothing when it was really needed? No 04/08/2024 Is your family able to get c lothes or diapers when needed? (Household - for ages 0-17 years) Not on file 04/08/2024 Personal Safety Answer Date Recorded Do you feel unsafe or have concerns for your saf ety? No 04/08/2024 Do you have concerns for you r family's safety? (Household - for ages 0-17 years) Not on file 04/08/2024 Utilities Answer Date Recorded Do you have trouble paying y our heating, water, or electric bill? No 04/08/2024 Is your family able to pay t he heat, water, or electric bill? (Household - for ages 0-17 years) Not on file 04/08/2024 Does your family have access to good internet? (Household - for ages 0-17 years) Not on file 04/08/2024 Employment Status Answer Date Recorded Are you unemployed or without regular income? No 04/08/2024 Does the household have a re gular source of income? (Household - for ages 0-17 years) Not on file 04/08/2024 Social Connections Answer Date Recorded How often do you feel lonely or isolated from th ose around you? Never 04/08/2024 Financial Resource Strain Answer Date R ecorded Do you have any trouble payi ng for your medications, or do you think you might in the future? No 04/08/2024 Does your family have troubl e paying for medicine? (Household - for ages 0-17 years) Not on file 04/08/2024 Transportation Needs Answer Date Record ed Do you have trouble getting a ride to medical visits or work? (Adult - for ages 18 years and over) Not on file 04/08/2024 Does your family have a hard time getting a ride to doctors visits? (Household - for ages 0-17 years) Not on file 04/08/2024 Has lack of transportation k ept you from medical appointments, meetings, work, or from getting things needed for daily living? Check all that apply. Yes, it has kept me from non-medical meetings, appointments, work, or from getting things that I need;Yes, it has kept me from medical appointments 04/08/2024 Do you (or your family) have trouble finding or paying for a ride (transportation)? (Household - for ages 0-17 years) Not on file 04/08/2024 Housing Stability Answer Date Recorded Do you currently live in a s helter or have no steady place to sleep at night? No 04/08/2024 Do you think you are at risk of becoming homeless? (Adult - for ages 18 years and over) Not on file 04/08/2024 Does your family worry about paying for your home or becoming homeless? (Household - for ages 0-17 years) Not on file 1 06/08/2023 Are you homeless or worried that you might be in the future? Yes 04/08/2024 Are you (or your family) kathryn eless or worried that you might be in the future? (Household - for ages 0-17 years) Not on file Food Insecurity Answer Date Recorded Do you need food for this week? No 04/08/2024 Are you able to get enough f ood for your family? (Household - for ages 0-17 years) Not on file 04/08/2024 Does your family need food t his week? (Household - for ages 0-17 years) Not on file 04/08/2024 Do you always have enough fo od for your family? (Household - for ages 0-17 years) Not on file 04/08/2024 Comments No Sex and Gender Information Value [...] Kiki Lang RN documented in this encounter Plan of Treatment Upcoming Encounters Date Type Department Care Team (Late st Contact Info) Description 06/24/2024 1:00 PM EST Pharmacy Family Practice 65 [facility] 293 [facility], [place] [phone] College, Pharmacist [address], [place] [address] 06/24/2024 1:40 PM EST Office Visit Family Practice 65 [facility] 293 [facility], [place] [phone] Pierre Hill, DO 293 [facility] [place] [address] 08/12/2024 2:00 PM EDT Office Visit Orthopaedics Spine Surgery [facility] [address] [place] [phone] Hallie Faria CRNP [address] [place] [phone] 10/07/2024 10:30 AM EDT Office Visit Otolaryngology [facility] [address] [place] [address] Nanci Schwarz MD [address] [place] [address] Jovanna Salcedo Au.D. [address] [place] [address] Health Maintenance Due Date Last Done Comments DXA Scan 1956 Hepatitis C Screening 1974 DTap/Tdap Vaccines (1 - Tdap) 10/13/1975 Cologuard 2001 Colonoscopy 2001 Sigmoidoscopy 2001 Zoster Vaccines (1 of 2) 2006 Colorectal Cancer Screening 06/26/2010 Fecal Occult Blood Test 06/26/2010 06/26/2009 Mammogram 09/28/2012 09/29/2011 Pneumococcal Vaccine: 50+ Years (3 of 3 - PCV20 or PCV21) 05/23/2020 05/23/2015, 02/16/2014, 04/25/2008 Adult Wellness Visit 2022 GFR 03/08/2025 03/08/2024, 11/2023, 03/05/2021, Additional history exists Depression Monitoring 04/08/2025 04/08/2024 Albumin/Creatinine Ratio 11/18/2026 11/19/2023 Diabetes Screening 03/08/2027 03/08/2024, 1 , 03/05/2021, Additional history exists Lipid Panel 03/14/2029 03/14/2024, 03/05/2021 COVID-19 Vaccine Completed 03/14/2024, , 08/31/2022, Additional history exists Influenza Vaccine (FLU shot) Completed , 02/24/2019, 03/03/2017, Additional history exists HPV (Gardasil) Vaccine Aged [...] Power of Attor diallo? No Care Teams Registered Public Health Nurse Relationship Specialty Start Date End Date Demetrio Polanco DO [address] [place] [address] PCP - General Family Medicine 03/14/24 documented as of this encounter
--- OUTSIDE RECORDS SUMMARY | 2024-08-04 09:02 | External Medical Summary | Summary of Care ---
Author Name Unknown Organization [facility] Address [address] [place] [address] Phone [phone] Care Team Providers Care Catholic Priest Name Role Phone Demetrio Polanco Primary Care Provider [phone] Encounter Details Date Type Department Care Team (Late st Contact Info) Description 06/20/2024 Population Health External Data Unspecified Department Allergies [...] as of this encounter (statuses as of 06/20/2024) Medications Melatonin 10 MG Oral Tablet Take [...] as of this encounter (statuses as of 06/20/2024) Active Problems Problem Noted Date Diagnosed Date [...] as of this encounter (statuses as of 06/20/2024) Resolved Problems Problem Noted Date Diagnosed Date Resolved Date Acute respiratory failure with hypoxia 03/14/2024 03/14/2024 Primary open angle glaucoma (POAG) 03/14/2024 03/21/2024 Overview (03/21/2024): More specified on pl Right eye, severe stage Upper gastrointestinal bleed 03/04/2020 03/21/2024 Overview (03/21/2024): historical documented as of this encounter (statuses as of 06/20/2024) Immunizations Name Administration Dates Next Due COVID-19, [...] 04/08/2024 Does the household have a re lar [...] 1:00 PM EST Pharmacy Family Practice [address] [place] [address] 293 [place] [phone] College, Pharmacist [address] [address] 06/24/2024 1:40 PM EST Office Visit Family Practice 65 [facility] 293 [place] [address] Pierre Hill, DO 293 [place] [address] 08/12/2024 2:00 PM EDT Office Visit Orthopaedics Spine Surgery [facility] [address] [place] [phone] Hallie Faria CRNP [address] [place] [address] 10/07/2024 10:30 AM EDT Office Visit Otolaryngology [facility] [address] [place] [address] Nanci Schwarz MD [address] [place] [address] Jovanna Salcedo Au.D. [address] [place] [address] Health Maintenance Due Date Last Done Comments [...] 11/19/2023 Diabetes Screening 03/08/2027 03/08/2024, 1 , 03/07/2024, Additional history exists Lipid Panel 03/14/2029 03/14/2024, [...] Power of Attor diallo? No Care Teams Catholic Priest Relationship Specialty Start Date End Date Demetrio Polanco DO [address] [place] [address] PCP - General Family Medicine 03/14/24 documented as of this encounter
--- OUTSIDE RECORDS SUMMARY | 2024-08-04 09:02 | External Medical Summary | Summary of Care ---
Author Name Unknown Organization [facility] Address [address] [place] [address] Phone [phone] Care Team Providers Care Production Machine Tender Name Role Phone CollinDemetrio Primary Care Provider [phone] Reason for Visit * Reason Onset Date Comments Hospital Follow-Up 06/23/2024 Encounter Details Date Type Department Care Team (Late st Contact Info) Description 06/23/2024 1:00 PM EST Scheduled Telephone Family Practice [address], [place] [address] [place] [address] Araceli Edwards RN [address] [place] [address] Allergies Active Allergy Reactions Criticality Noted Date [...] Telephone Encounter - Araceli Edwards RN - 06/23/2024 3:15 PM EST MJ #1 Phone visit for post hospital d/c [facility] Dx: left knee pain, SVT Dates of stay: 06/21/2024-06/22/2024 Call to pt-no answer-message left to call back at [phone] documented in this encounter Plan of Treatment Upcoming Encounters Date Type Department Care Team (Late st Contact Info) Description 06/24/2024 1:00 PM EST Pharmacy Family Practice [address], [place] 293 [place] [phone] College, Pharmacist 65 [facility] [address] [place] [address] 06/24/2024 1:40 PM EST Office Visit Family Practice 65 [facility] 293 [place] [phone] Pierre Hill DO [address] [place] [address] 06/27/2024 1:00 PM EST Scheduled Telephone Family Practice [address] [place] [address] 293 [place] [phone] Araceli Edwards RN [address] [place] [phone] 08/12/2024 2:00 PM EDT Office Visit Orthopaedics Spine Surgery [facility] [address] [facility] [place] [phone] Hallie Faria CRNP [address] [place] [phone] 10/07/2024 10:30 AM EDT Office Visit Otolaryngology [facility] [address] [place] [address] Nanci Schwarz MD [address] [place] [address] Jovanna Salcedo Au.D. [address] [place] [address] Health Maintenance Due Date Last Done Comments [...] Power of Attor diallo? No Care Teams Production Machine Tender Relationship Specialty Start Date End Date Demetrio Polanco DO [address] [place] [phone] PCP - General Family Medicine 03/14/24 documented as of this encounter
--- OUTSIDE RECORDS SUMMARY | 2024-08-04 09:02 | External Medical Summary | Summary of Care ---
Author Name Unknown Organization [facility] Address [address] [place] [address] Phone [phone] Care Team Providers Care Hand Decorator Name Role Phone Demetrio Polanco DO Primary Care Provider Reason for Visit * Reason Onset Date Comments Medication Refill 06/16/2024 Encounter Details Date Type Department Care Team (Late st Contact Info) Description 06/16/2024 Refill Family Practice [facility] [address] [place] [address] Demetrio Polanco DO [address] [place] [address] Episode of recurrent major depressive disorder, unspecified depression episode severity (HCC) Allergies Active Allergy Reactions Criticality Noted Date [...] as of this encounter (statuses as of 06/22/2024) Medications Melatonin 10 MG Oral Tablet Take [...] as of this encounter (statuses as of 06/22/2024) Active Problems Problem Noted Date Diagnosed Date [...] as of this encounter (statuses as of 06/22/2024) Resolved Problems Problem Noted Date Diagnosed Date Resolved Date Acute respiratory failure with hypoxia 03/14/2024 03/14/2024 Primary open angle glaucoma (POAG) 03/14/2024 03/21/2024 Overview (03/21/2024): More specified on pl Right eye, severe stage Upper gastrointestinal bleed 03/04/2020 03/21/2024 Overview (03/21/2024): historical documented as of this encounter (statuses as of 06/22/2024) Immunizations Name Administration Dates Next Due COVID-19, [...] encounter Miscellaneous Notes * Telephone Encounter - Geri Cagle PHARM Tech - 06/17/2024 1:06 PM EST Pt calling to check on status of Morphine Sulfate ER 15 MG Oral Tablet Exte*60 T . Caller can be reached at [phone]. Thank you, Geri Cagle Vessel Master I [facility] 06/17/2024,1:06 PM * Telephone Encounter - Sindy Naylor CPhT - 06/17/2024 11:37 AM EST Patient has appt scheduled on 06/24/2024 and will not have medication until then she has 3 days remaining and will go into withdrawal without the medication asking if enough medication can be ordereduntil seen please advise and call patient Thank you, Sindy Naylor Toby Maker II [facility] (formerly Telepharm[facility]) 06/17/2024 11:39 AM * Telephone Encounter - Demetrio Polanco DO - 06/16/2024 5:40 PM ESTRefused Prescriptions: Disp Refills Morphine Sulfate ER 15 MG Oral Tablet Exte*60 Tab*0 Sig: Take 1 Tablet by mouth in the morning and 1 Tablet before bedtime. Refused By: DEMETRIO POLANCO Reason for Refusal: Appt. Required, please call patient Gabapentin 600 MG Oral Tablet (Neurontin) 540 Ta*1 Refused By: DEMETRIO POLANCO Reason for Refusal: Appt. Required, ple ase call patient buPROPion HCl ER (XL) 150 MG Oral Tablet E*90 Tab*3 Sig: Take 1 Tablet by mouth in the morning. Refused By: DEMETRIO POLANCO Reason for Refusal: Appt. Required, please call patient buPROPion HCl ER (XL) 300 MG Oral Tablet E*90 Tab*2 Sig: Take by mouth. Refused By: DEMETRIO POLANCO Reason for Refusal: Appt. Required, please call patient * Telephone Encounter - Pierre Hill DO - 06/16/2024 3:29 PM ESTPending Prescriptions: Disp Refills Morphine Sulfate ER 15 MG Oral Tablet Exte*60 Tab*0 Sig: Take 1 Tablet by mouth in the morning and 1 Tablet before bedtime. Gabapentin 600 MG Oral Tablet (Neurontin) 540 Ta*1 buPROPion HCl ER (XL) 150 MG Oral Tablet E*90 Tab*3 Sig: Take 1 Tablet by mouth in the morning. buPROPion HCl ER (XL) 300 MG Oral Tablet E*90 Tab*2 Sig: Take by mouth. * Telephone Encounter - Pierre Hill DO - 06/16/2024 3:28 PM EST I have not seen the patient yet. She will be establishing on 06/24/2024 Can you do her refills until she is seen here? * Telephone Encounter - Constance Nnio CCMA - 06/16/2024 12:15 PM EST Pending Prescriptions: Disp Refills Morphine Sulfate ER 15 MG Oral Tablet Exte*60 Tab*0 Sig: Take 1 Tablet by mouth in the morning and 1 Tablet before bedtime. Gabapentin 600 MG Oral Tablet (Neurontin) 540 Ta*1 buPROPion HCl ER (XL) 150 MG Oral Tablet E*90 Tab*3 Sig: Take 1 Tablet by mouth in the morning. buPROPion HCl ER (XL) 300 MG Oral Tablet E*90 Tab*2 Sig: Take by mouth. * Telephone Encounter - Sandra Delgado OSA - 06/16/2024 11:04 AM EST Did you pend patient's preferred pharmacy and medication before forwarding? Pharmacy: [id number] [id number] [facility] Pending Prescriptions: Disp Refills Morphine Sulfate ER 15 MG Oral Tablet Ext*60 Tab*0 Sig: Take 1 Tablet by mouth in the morning and 1 Tablet before bedtime. Gabapentin 600 MG Oral Tablet (Neurontin) 540 Ta*1 buPROPion HCl ER (XL) 150 MG Oral Tablet *90 Tab*3 Sig: Take 1 Tablet by mouth in the morning. buPROPion HCl ER (XL) 300 MG Oral Tablet *90 Tab*2 Sig: Take by mouth. Last Visit: 04/08/2024 (in office), Visit date not found (telemedicine) Next Visit: Visit date not found If no future appointments scheduled, and last appointment is greater than a year ago, please schedule patient for a follow-up appointment Last date the medication was ordered: Is this request for a controlled substance? Urine Drug Screen: Results for orders placed [...] Labs: Lab Results Component Value Date/Time CREAT 0.5 03/08/2024 06:17 AM CREAT 0.6 03/06/2020 07:27 AM POTASSIUM 3.5 03/08/2024 06:17 AM POTASSIUM 3.7 03/06/2020 07:27 AM TSH 0.91 03/07/2024 10:41 AM LDL 86 03/14/2024 02:49 PM ALT 8 (L) 03/07/2024 10:41 AM ALT 16 03/04/2020 07:18 PM documented in this encounter Plan of Treatment Upcoming Encounters Date Type Department Care Team (Late st Contact Info) Description 06/24/2024 1:00 PM EST Pharmacy Family Practice 65 [facility] [address] [facility] [phone] College, Pharmacist [address] [address] 06/24/2024 1:40 PM EST Office Visit Family Practice 65 [facility] [address] [facility] [phone] Pierre Hill, [address] [place] [address] 08/12/2024 2:00 PM EDT Office Visit Orthopaedics Spine Surgery [facility] [address] [place] [phone] Hallie Faria CRNP [address] [place] [address] 10/07/2024 10:30 AM EDT Office Visit Otolaryngology [facility] [address] [place] [address] Nanci Schwarz MD [address] [place] [address] Jovanna Salcedo Au.D. [address] [place] [address] Health Maintenance Due Date Last Done Comments [...] as of this encounter Visit Diagnoses Diagnosis Episode of recurrent major depressive disorder, unspecified depression episode severity (HCC) documented in this encounter Advance Directives * [...] of Attor diallo? No Care Teams Hand Decorator Relationship Specialty Start Date End Date Demetrio Polanco DO [address] [place] [address] PCP - General Family Medicine 03/14/24 documented as of this encounter
--- OUTSIDE RECORDS SUMMARY | 2024-08-04 09:02 | External Medical Summary | Summary of Care ---
Author Name Unknown Organization [facility] Address [address] [place] [address] Phone [phone] Care Team Providers Care Fast Brim Pouncer Name Role Phone Demetrio Polanco Primary Care Provider Encounter Details Date Type Department Care Team (Late st Contact Info) Description 06/24/2024 Population Health External Data Unspecified Department Allergies [...] this encounter (statuses as of 06/24/2024) Medications Melatonin 10 MG Oral Tablet Take [...] 06/24/2024) Immunizations Name Administration Dates Next Due COVID-19, [...] 1:00 PM EST Pharmacy Family Practice [address] [place] [phone] College, Pharmacist [address] [place] [address] 06/24/2024 1:40 PM EST Office Visit Family Practice [address] [place] [address], [place] [phone] Pierre Hill, [address] [place] [address], [place] [address] 06/27/2024 1:00 PM EST Scheduled Telephone Family Practice [address] [place] [phone] Araceli Edwards, PASQUALE [address] [place] [address], [place] [phone] 08/12/2024 2:00 PM EDT Office Visit Orthopaedics Spine Surgery [facility] [address] [place] [phone] Hallie Faria CRNP [address] [place] [phone] 10/07/2024 10:30 AM EDT Office Visit Otolaryngology [facility] [address] [place] [address] Nanci Schwarz MD [address] [place] [address] Jovanna Salcedo Au.D. [address] [place] [address] Health Maintenance Due Date Last Done Comments [...] Power of Attor diallo? No Care Teams Fast Brim Pouncer Relationship Specialty Start Date End Date Demetrio Polanco DO [address] [place] [address] PCP - General Family Medicine 03/14/24 documented as of this encounter
--- OUTSIDE RECORDS SUMMARY | 2024-08-04 09:02 | External Medical Summary | Summary of Care ---
Author Name Unknown Organization [facility] Address [address] [place] [address] Phone [phone] Care Team Providers Care Field Auto Appraiser Name Role Phone CollinDemetrio Primary Care Provider + [phone] Reason for Visit * Reason Onset Date Comments Hospital Follow-Up 06/23/2024 Encounter Details Date Type Department Care Team (Late st Contact Info) Description 06/23/2024 1:00 PM EST Scheduled Telephone Family Practice [address] [facility] [place] [address] [place] [address] Araceli Edwards RN [address] [place] [address] Allergies Active Allergy Reactions Criticality [...] #1 Phone visit for post hospital d/c [facility] Dx: left knee pain, SVT Dates of stay: 06/21/2024-06/22/2024 Call to pt-no answer-message left to call back at [phone] documented in this encounter Plan of Treatment Upcoming Encounters Date Type Department Care Team (Late st Contact Info) Description 06/24/2024 1:00 PM EST Pharmacy Family Practice [address] [facility] [place] [address] [facility] [place] [phone] College, Pharmacist 65 [facility] [address] [place] [address] 06/24/2024 1:40 PM EST Office Visit Family Practice 65 [facility] [address] [facility] [place] [phone] Pierre Hill DO [address] [place] [address] 06/27/2024 1:00 PM EST Scheduled Telephone Family Practice [address] [place] [address] [address] [facility] [place] [phone] Araceli Edwards RN [address] [place] [phone] 08/12/2024 2:00 PM EDT Office Visit Orthopaedics Spine Surgery [facility] [address] [facility] [place] [phone] Hallie Faria CRNP [address] [place] [phone] 10/07/2024 10:30 AM EDT Office Visit Otolaryngology [facility] [address] [place] [address] Nanci Schwarz MD [address] [place] [address] Jovanna Salcedo Au.D. [address] [place] [address] Health Maintenance Due Date Last Done Comments [...] Power of Attor diallo? No Care Teams Field Auto Appraiser Relationship Specialty Start Date End Date Demetrio Polanco DO [address] [place] [phone] PCP - General Family Medicine 03/14/24 documented as of this encounter
--- NOTE | 2024-08-04 09:04 | Cardiology Consultation ---
Date of Consultation August 04, 2024 Assessment & Plan (1) SVT (supraventricular tachycardia): (2) Palpitations: (3) Elevated troponin: Plan Patient with episode of (probable) recurrent SVT, converting with adenosine by EMS. Strips not available to review. HR reportedly 170-190's. No recurrence since admission. Low normal potassium and magnesium and these were supplemented. Patient was previously hesitant to initiate medication therapies for SVT. Now agreeable to try beta maren. Started on metoprolol tartrate 25 mg BID on admission. Transition to metoprolol succinate 25 mg BID. BP also uncontrolled since admission. Start losartan 25 mg daily HS troponin minimally elevated, but lower than admission in Jun 2024 echo at that time with preserved LVEF, no wall motion abnormalities. Consider outpatient nuclear Lexiscan stress test Currently no anginal symptoms. HS troponin likely due to demand ischemia in setting of tachyarrhythmia/SVT. Patient has EP visit in September [address] Lilly for SVT. will arrange outpatient ZIO monitor in the meantime Case discussed with Dr. Harp I spent a total of 60 minutes on the date of service in preparation, delivery, and documentation of the care provided to this patient, excluding any time spent in the performance of separately billed services. Mickie Ferraro PA-C Department of Cardiology, [facility] This chart was completed in part utilizing Speech Voice Recognition Software. Grammatical errors, random word insertions, pronoun errors, and incomplete sentences are an occasional consequence of this system due to software limitations, ambient noise, and hardware issues. Any formal questions or concerns about the content, text, or information contained within the body of this dictation should be directly addressed to the provider for clarification. Supervising Physician Co-Signing Physician Notes I have personally performed a history and physical examination on the patient. I have reviewed the advance practitioner's documentation, and I agree with, and take responsibility for the plan of care. 68-year-old female admitted secondary to palpitations, recurrent SVT status post treatment with adenosine en route to the ER. Mildly elevated high-sensitivity troponin secondary to prolonged tachycardia. Patient agreeable to medical therapy. Recommend ToprolXL 25 mg twice daily. Continue losartan as ordered. Outpatient electrophysiology consultation scheduled. Appropriate for vagal maneuvers reviewed. Encourage patient to maintain adequate hydration and electrolyte replacement. All questions answered to patient satisfaction. No further inpatient cardiac testing or intervention recommended at this time. I spent a total of 30 minutes on the date of service in preparation, delivery, and documentation of the care provided to this patient, excluding any time spent in the performance of separately billed services. Shabbir Harp DO, [facility] History of Present Illness Reason for Consultation: Palpitations; SVT Requesting Physician: Donna Hernandezist Attending Physician: Dr. Harp History of Present Illness Patient is a 68 year old female admitted to [facility] with complaints of palpitations, tachycardia. Apparently when EMS arrived at patient's house, she was found to be in a probable SVT and treated with adenosine by EMS and she converted to NSR. These strips are not available to review. This is approx 4th episode of arrhythmia. She was evaluated by EP, Dr. Crain in Jun 2024 for symptoms and preferred conservative therapies and no medicati ons. Upon arrival to ER, she was back in NSR. Potassium and magnesium were low normal and supplemented. BP was uncontrolled. Minimally elevated troponin noted, but lower than admission in Jun 2024 for similar findings. echo at that time demonstrated normal LVEF, now all motion abnormalities. Since admission patient was started on metoprolol tartrate 25 mg BID. Currently HR is controlled. BP has been elevated since admission. She does not take BP medication at home. She reports several days of fevers and not feeling well prior to admission. She reports when she has a "virus", she breaks out with diffuse "scabs" on her skin. At time of consult, patient resting in bed feeling ok. Notes fatigue and general weakness. No recurrent fevers or chills. No sense of palpitations or tachypalpitations. She had episode of chest tightness yesterday with the palpitations, but now resolved. HS troponin minimally elevated, likely due to tachyarrhythmia. Allergies Allergy/AdvReac Type Severity Reaction Status Date / Time bee venom protein (honey bee) Allergy Severe Anaphylaxis Verified 06/17/24 13:03 sulfamethoxazole Allergy Unknown at age 20, Verified 06/17/24 13:03 can not remember what happened trimethoprim Allergy Unknown at age 20, Verified 06/17/24 13:03 can not remember what happened aripiprazole [From Abilify] AdvReac Severe Tremors Unverified 08/04/24 01:19 lactose AdvReac Intermediate ice cream Verified 06/17/24 13:03 gives her diarrhea milk AdvReac Intermediate Diarrhea Verified 06/17/24 13:03 metoclopramide [From Reglan] AdvReac Unknown Verified 08/04/24 01:19 Home Medications Medication Instructions Recorded Confirmed Type bupropion HCl 150 mg 24 hr tablet, 150 mg PO QAM 06/03/22 08/03/24 History extended release (Wellbutrin XL) bupropion HCl 300 mg 24 hr tablet, 300 mg PO QAM 06/03/22 08/03/24 History extended release (Wellbutrin XL) sumatriptan succinate 100 mg tablet 100 mg PO UD PRN Migraine Headache 06/03/22 08/03/24 History bismuth subsalicylate 262 mg 524 mg PO QID PRN .gi-upset 09/24/23 08/03/24 History tablet (Pepto-Bismol) tafluprost (PF) 0.0015 % eye drops 2 drp OPB HS 09/24/23 08/03/24 History in a dropperette timolol maleate 0.5 % eye drops 1 drp OPB QAM 09/24/23 08/03/24 History epinephrine 0.3 mg/0.3 mL 0.3 mg IM DIRECTED PRN Allergic 11/29/23 08/03/24 History injection, auto-injector (EpiPen) Reaction pantoprazole 40 mg tablet,delayed 40 mg PO BID 90 days #180 tabs 06/08/24 08/03/24 Rx release loperamide 2 mg capsule (Imodium 2 mg PO Q6H PRN Diarrhea 06/17/24 08/03/24 H istory A-D) ondansetron 4 mg disintegrating 4 mg PO Q8H PRN nausea and 06/17/24 08/03/24 Rx tablet vomiting #30 tabs morphine 15 mg tablet,extended 15 mg PO UD 06/21/24 08/03/24 History release duloxetine 20 mg capsule,delayed 20 mg PO QAM 08/03/24 08/03/24 History release furosemide 20 mg tablet 20 mg PO QAM 08/03/24 08/03/24 History triamcinolone acetonide 0.1 % 1 applic topical BID 08/03/24 08/03/24 History topical ointment gabapentin 600 mg tablet 1,800 mg PO BID 08/04/24 08/04/24 History Patient History Medical History Anastomotic ulcer Acute hypoxemic respiratory failure Altered mental status Gastric ulcer Left wrist fracture Left wrist pain Gastritis Medical marijuana use has not used several years Diarrhea Encounter for pre-operative examination Melena Acute hypotension Acute GI bleeding Hx MRSA infection dx [facility] years ago, "it was in her blood" Irritable bowel syndrome with constipation Hepatitis C hx - treated History of anesthesia reaction hx of waking up during procedures Bulging discs Scoliosis Spinal stenosis Glaucoma Attention deficit disorder (ADD) Migraine Depression Hypertension hx GI bleed admitted to [facility] 06/2022; no current problems Surgical History H/O gastric bypass History of partial hysterectomy History of bilateral breast reduction surgery History of bilateral tubal ligation Status post right foot surgery x7--hardware in place Status post left foot surgery x7-hardware in place History of open reduction and internal fixation (ORIF) procedure right ankle--hardware in place History of fusion of cervical spine C4-C5--normal ROM History of right shoulder replacement History of total right hip replacement History of total left knee replacement (TKR) x2 History of colonoscopy History of esophagogastroduodenoscopy (EGD) History of cholecystectomy History of appendectomy History of mandibular surgery 1978--wired shut History of tooth extraction History of wisdom tooth extraction History of eye surgery right---scar tissue from cataract sx History of bilateral cataract extraction History of cardiac cath 2005 @ [facility]---"fistula in heart between 2 valves"--no stents; no car williams, just PCP History of lung biopsy right side--benign Family History Mother Colorectal cancer Father Lung cancer Family history of esophageal cancer Brother Family history of esophageal cancer Grandfather (Maternal) Family history of esophageal cancer Other No family history of adverse response to anesthesia Social History (Updated 06/22/24 @ 05:42 by Bill Rodriguez MD) Smoking Status: Never smoker Second Hand Exposure: No; Do You Dip or Chew Tobacco: No; Hx Alcohol Use: No Hx Substance Use: No Preferred Language: Telugu Communication Ability: Effective Storage Architect Required: No Beliefs That Will Affect Care: None marital status: Single Current Living Situation: Alone Current Living Situation Comment: live in one story home with her two cats How many Children do You have: 1 Other Information That Helps Us Care for You: Yes (home alone, no support person) Feels Safe at Home: Yes Safety Concerns: Feels Safe At This Time Assistive Devices: Cane and Walker Review of Systems Review of Systems: All systems reviewed & are unremarkable except as noted in HPI & below Physical Exam Constitutional: WD/WN, vitals as above Neck: normal visual inspection Respiratory: normal respiratory effort Auscultation: + diminished lung sounds; no rales and no rhonchi Cardiovascular: Rate/Rhythm: regular rate and regular rhythm Heart Sounds: normal S1 and normal S2; no murmur Gastrointestinal (Abdomen): normal bowel sounds, soft, nontender, no hepatosplenomegaly Skin: + ulcer (small ulcerations on upper and lower extremities and chest) Neurologic: PERRL, EOMI, accommodation nl, no face palsy, no dysarthria Results & Data Vital Signs (Past 12 Hours) Vital Signs Temp Pulse Pulse Resp BP BP Pulse Ox 08/04/24 07:50 36.4 C L 79 179/82 H 08/04/24 07:49 36.5 C 79 17 159/80 H 96 08/04/24 03:28 36.8 C 82 18 175/92 H 95 08/04/24 02:29 36.6 C 80 16 167/82 H 94 08/04/24 00:33 36.8 C 82 18 175/92 H 95 08/03/24 22:57 08/03/24 22:51 85 17 08/03/24 22:43 128/76 08/03/24 22:15 95 H 22 08/03/24 22:06 88 17 08/03/24 22:00 169/92 H 08/03/24 21:57 92 H 16 08/03/24 21:30 164/87 H 08/03/24 21:18 90 14 08/03/24 21:00 152/84 H 08/03/24 21:00 88 12 152/84 H 92 Pulse Ox O2 Del Method O2 Del Method 08/04/24 07:50 08/04/24 07:49 Room Air 08/04/24 03:28 Room Air 08/04/24 02:29 Room Air 08/04/24 00:33 Room Air 08/03/24 22:57 92 Room Air 08/03/24 22:51 08/03/24 22:43 08/03/24 22:15 08/03/24 22:06 08/03/24 22:00 08/03/24 21:57 08/03/24 21:30 08/03/24 21:18 08/03/24 21:00 08/03/24 21:00 Room Air Laboratory Results Cardiac Enzymes 08/03/24 08/03/24 08/04/24 Range/Units 18:45 20:24 06:16 AST 17 (13-39) U/L Troponin I High Sens 38.6 H 69.5 H* D 57.4 H* D (0-14) pg/ml Coagulation 08/03/24 Range/Units 18:45 APTT 34 H (21-31) Seconds CBC 08/03/24 08/04/24 Range/Units 18:45 06:16 WBC 5.13 6.57 (4.8-10.8) K/ul RBC 4.56 4.46 (4.20-5.40) M/uL Hgb 11.4 L 11.3 L (12.0-16.0) g/dl Hct 36.5 L 35.8 L (37.0-47.0) % Plt Count 232 266 (130-400) K/uL Neut # (Auto) 3.04 3.01 (1.40-6.50) K/uL Lymph # (Auto) 1.43 2.81 (1.20-3.40) K/uL Starke # (Auto) 0.42 0.59 (0.11-0.59) K/uL Eos # (Auto) 0.19 0.11 (0.00-0.50) K/uL Baso # (Auto) 0.03 0.03 (0.00-0.20) K/uL Comprehensive Metabolic Panel 08/03/24 08/04/24 Range/Units 18:45 06:16 Sodium 143 144 (136-145) mmol/L Potassium 3.6 4.2 (3.5-5.1) mmol/L Chloride 108 H 107 (98-107) mmol/L Carbon Dioxide 30 31 (21-32) mmol/L BUN 13 9 (6-23) mg/dl Creatinine 0.51 L 0.44 L (0.6-1.2) mg/dl Glucose 118 H 78 (70-99(Fasting)) mg/dl Calcium 9.4 9.3 (8.6-10.3) mg/dl AST 17 (13-39) U/L ALT 10 (7-52) U/L Alkaline Phosphatase 73 (34-104) U/L Total Protein 7.3 (6.0-8.3) gm/dl Albumin 3.7 (3.4-5.0) gm/dl Intake and Output 08/03/24 08/04/24 08/04/24 22:59 06:59 14:59 Intake Total 1500 / 2250.50 750.50 / 2250.50 Balance 1500 / 2250.50 750.50 / 2250.50 Intake: IV 1500 / 1700.50 200.50 / 1700.50 Magnesium Sulfate / D5w 1 gm In 100 / 100 100 ml @ 50 mls/hr IV ONE ONE Rx#:[id number] Promethazine 6.25 mg In 50.25 100.50 / 100.50 ml @ 201 mls/hr IV Q6H PRN Rx#: [id number] Sodium Chloride 0.9% 500 ml @ 1500 / 1500 999 mls/hr IV .Q31M ONE Rx#: [id number] Oral 550 / 550 Other: # Unmeasured Voids 2 Weight 91.4 kg 91.4 kg Weight Measurement Method Built in [facility] Built in [facility] Diagnostic Findings Telemetry reviewed: NSR ranging 80-90 bmp No recurrent SVT EKG reviewed from admission 08/03/24: Sinus tachycardia at 107 bmp otherwise normal EKG Chest X-Ray 08/03/24 18:50 Impression: No active disease Chest CTA 08/03/24 22:12 IMPRESSION: 1. No evidence of pulmonary embolism or significant vascular stenosis. 2. Bilateral congestive changes with stable calcified right lung nodules 3. Moderate para-esophageal hiatus hernia, with related gastro-esophageal junction surgical sutures. 4. Right thyroid hypodense nodule measuring 12 mm. 5. Splenomegaly. 6. No significant interval changes. Prior data reviewed: Echo reviewed form Jun 2024: LV systolic function is normal Mild concentric LVH Grade I diastolic dysfunction LA is mildly dilated RV systolic pressure is normal Medications Administered Current Inpatient Medications Acetaminophen (Acetaminophen 325 Mg Tab) 650 mg PO QID PRN PRN Reason: pain/fever Stop: 09/03/24 01:12 Bupropion HCl (Bupropion Xl 300 Mg Tabcr) 300 mg PO QAM [facility] Stop: 09/03/24 08:59 Bupropion HCl (Bupropion Xl 150 Mg Tabcr) 150 mg PO QAM [facility] Stop: 09/03/24 08:59 Duloxetine HCl (Duloxetine Hcl 20 Mg Cap) 20 mg PO QAM [facility] Stop: 09/03/24 08:59 Enoxaparin Sodium (Enoxaparin Inj 40 Mg/0.4 Ml Syr) 40 mg SQ QAM [facility] Stop: 09/03/24 08:59 Gabapentin (Gabapentin 600 Mg Tab) 1,800 mg PO BID [facility] Stop: 09/03/24 08:59 Last Admin: 08/04/24 04:16 Dose: 1,800 mg Promethazine HCl (Phenergan) 6.25 mg in 50.25 mls @ 201 mls/hr IV Q6H PRN PRN Reason: Nausea And Vomiting Stop: 09/02/24 22:11 Last Infusion: 08/04/24 04:56 Dose: Infused Potassium Chloride/Sodium Chloride (1/2 Nss + 20meq Kcl 1000ml) 20 meq in 1,000 mls @ 50 mls/hr IV .Q20H ONE Stop: 08/04/24 21:14 Last Admin: 08/04/24 03:03 Dose: 50 mls/hr Metoprolol Tartrate (Metoprolol Tartrate 25 Mg Tab) 25 mg PO BID [facility] Stop: 09/03/24 08:59 Miscellaneous (Tafluprost~Order Awaiting Action) 1 each N/A QS [facility] Stop: 09/03/24 00:14 Last Admin: 08/04/24 02:26 Dose: Not Given Morphine Sulfate (Morphine Sulfate Cr 15 Mg Tabcr) 15 mg PO BID [facility] Stop: 08/18/24 08:59 Oxycodone HCl (Oxycodone Hcl Ir 5 Mg Tab (Immediate Release)) 5 mg PO Q4H PRN PRN Reason: Pain Stop: 08/18/24 01:12 Pantoprazole Sodium (Pantoprazole 40 Mg Tab) 40 mg PO BID [facility] Stop: 09/03/24 08:59 Timolol Maleate (Timolol Maleate 0.5% Op Soln 5 Ml Btl) 1 drops OP QAM TON Stop: 09/03/24 08:59 Triamcinolone Acetonide (Triamcinolone Acet 0.1% Oint 15 Gm Tube) 1 appln TOP BID TON Stop: 09/03/24 03:19 Last Admin: 08/04/24 04:29 Dose: 1 appln
[2024-08-04] MEDS: METOPROLOL TARTRATE 25 MG TAB PO SCH (09:07)
[2024-08-04] MEDS: buPROPion XL 150 MG TABCR PO SCH (09:07)
[2024-08-04] MEDS: ENOXAPARIN INJ 40 MG/0.4 ML SYR SQ SCH (09:07)
[2024-08-04] MEDS: buPROPion XL 300 MG TABCR PO SCH (09:07)
[2024-08-04] MEDS: PANTOprazole 40 MG TAB PO SCH (09:08)
[2024-08-04] MEDS: DULoxetine HCL 20 MG CAP PO SCH (09:08)
[2024-08-04] MEDS: TIMOLOL MALEATE 0.5% OP SOLN 5 ML BTL OP SCH (09:10)
--- NOTE | 2024-08-04 09:36 | Electrocardiogram Report ---
Test Reason : Blood Pressure : */* mmHG Vent. Rate : 107 BPM Atrial Rate : 107 BPM P-R Int : 182 ms QRS Dur : 78 ms QT Int : 324 ms P-R-T Axes : 44 -1 47 degrees QTcB Int : 432 ms Sinus tachycardia Otherwise normal ECG When compared with ECG of 21-Jun-2024 15:01, No significant change was found Confirmed by Mason Mcmahon ([id number]) on 08/04/2024 9:36:20 AM Referred By: REFERRED SELF Confirmed By: Mason Mcmahon
[2024-08-04] MEDS: MoRPHine SULFATE CR 15 MG TABCR PO SCH (09:37)
[2024-08-04] MEDS: ACETAMINOPHEN 325 MG TAB PO PRN (09:38)
--- NOTE | 2024-08-04 10:40 | CT Scan Report ---
CT head/brain wo con CLINICAL HISTORY: 68 years-old Female with Dizziness. Acute dizziness TECHNIQUE: Multiple axial CT images of the head were obtained without contrast. A dose lowering tech nique was utilized adhering to the principles of ALARA. CT DOSE: 625.8 mGy.cm COMPARISON: 12/13/2023 FINDINGS: No acute intracranial hemorrhage, midline shift, intracranial mass, hydrocephalus, territorial ischem ia or abnormal extra-axial collection. Involutional changes of the brain parenchyma. Senescent calcif ications of the basal ganglia. The calvarium is intact. The paranasal sinuses, mastoid air cells, and middle ear cavities are clear . IMPRESSION: No acute intracranial abnormality. ACT 112: Negative or not required by law. The above report was generated using voice recognition software. It may contain grammatical, syntax o r spelling errors. Electronically signed by: Reji Christine M.D. 08/04/2024 10:38 AM
[2024-08-04] MEDS: LOSARTAN POTASSIUM 25 MG TAB PO SCH (14:09)
[2024-08-04] MEDS: ONDANSETRON INJ 2 MG/ML 2 ML VIAL IV ONE (14:29)
--- NOTE | 2024-08-04 14:42 | Hospitalist Progress Note ---
Date of Service August 04, 2024 Assessment & Plan (1) Palpitations: Plan: Recurrent SVT Presented with palpitations, dizziness, dyspnea, nausea Hypertension Elevated troponin likely demand ischemia secondary to above --CT head:No acute intracranial abnormality. -- Normal TSH Patient converted to sinus after adenosine by EMS Started on metoprolol succinate 25 mg twice a day Also started on losartan 25 mg daily Monitor blood pressure and adjust medications as needed Appreciate cardiology input Plan for outpatient Lexiscan stress test per cardiology Patient was also scheduled to be evaluated by EP as outpatient Will need outpatient ZIO monitor upon discharge Monitor on commodities broker and replete electrolytes as needed GERD H/O gastric bypass H/O anastomotic ulcer Continue PPI twice a day H/O chronic pain syndrome Neuropathy Depression ADHD Continue home medications Lung nodules--likely chronic Thyroid nodule--normal TSH --CT showed: Bilateral congestive changes with stable calcified right lung nodules. Right thyroid hypodense nodule measuring 12 mm. Will advised to follow-up for further workup as outpatient Chronic normocytic anemia Hemoglobin at baseline Monitor CBC HCV Completed treatment DVT Px: Lovenox SQ Code Status Full code Admission and Anticipated Discharge Date Admission Date: August 03, 2024 Subjective Patient is seen and examined at bedside Dizziness, palpitations, dyspnea better Still has nausea Also reports ongoing left knee pain Reports chronic cough which she attributes to allergies Review of Systems Review of Systems: All systems reviewed & are unremarkable except as noted in Subjective Physical Exam Physical Exam: Physical Exam: Vitals signs as noted above General Appearance:Obese, no apparent distress Head: normocephalic, Atraumatic Eyes: normal inspection, EOMI Neck: supple, Trachea midline Respiratory/Chest: Decreased breath sounds, CTA, No accessory muscle use Cardiovascular: S1, S2, No murmur Abdomen/GI:Soft, Non tender, Bowel sounds present Extremities/Musculoskeletal:normal inspection,Trace edema Neurologic/Psych:AAOX3, grossly no focal neurological deficits Skin: normal color, warm Results & Data Results & Data Vital Signs (Past 12 Hours) Vital Signs Temp Pulse Pulse Resp BP Pulse Ox O2 Del Method 08/04/24 11:23 36.7 C 61 16 151/86 H 97 Room Air 08/04/24 11:00 82 08/04/24 07:50 36.4 C L 79 179/82 H 08/04/24 07:49 36.5 C 79 17 159/80 H 96 Room Air 08/04/24 03:28 36.8 C 82 18 175/92 H 95 Room Air 08/04/24 02:29 36.6 C 80 16 167/82 H 94 Room Air Laboratory Results Short CBC 08/03/24 08/04/24 Range/Units 18:45 06:16 WBC 5.13 6.57 (4.8-10.8) K/ul Hgb 11.4 L 11.3 L (12.0-16.0) g/dl Hct 36.5 L 35.8 L (37.0-47.0) % Plt Count 232 266 (130-400) K/uL BMP 08/03/24 08/04/24 18:45 06:16 Sodium 143 144 Potassium 3.6 4.2 Chloride 108 H 107 Carbon Dioxide 30 31 BUN 13 9 Creatinine 0.51 L 0.44 L Glucose 118 H 78 Calcium 9.4 9.3 Liver Function 08/03/24 Range/Units 18:45 Total Bilirubin 0.3 (0.2-1.0) mg/dl AST 17 (13-39) U/L ALT 10 (7-52) U/L Alkaline Phosphatase 73 (34-104) U/L Albumin 3.7 (3.4-5.0) gm/dl
[2024-08-04] MEDS: oxyCODONE HCL IR 5 MG TAB (IMMEDIATE RELEASE) PO PRN (17:12)
--- NOTE | 2024-08-04 17:22 | CT Scan Report ---
INDICATION: Abdominal pain. COMPARISON: CT abdomen pelvis from 09/24/2023. TECHNIQUE: Axial CT images of the abdomen and pelvis were obtained without IV contrast administration. Coronal and sagittal reformations were reviewed. FINDINGS: Visualized lung bases appear unremarkable. The gallbladder is surgically absent. The liver, spleen, pancreas and adrenal glands appear unremarkable. No renal calculus or hydronephrosis. Postoperative changes in the stomach and small bowel. No evidence of bowel obstruction/colitis/appendicitis. Mild retained colonic stool. No free air. No drainable fluid collection. The urinary bladder appears unremarkable. No acute osseous abnormality evident. IMPRESSION: Mild retained colonic stool. Electronically signed by Jorge Beaver 08-04-2024 5:21 PM
[2024-08-04] MEDS ORDERED: POLYETHYLENE (MIRALAX) 17 GM PACK PO PRN (17:31)
[2024-08-04] MEDS: POLYETHYLENE (MIRALAX) 17 GM PACK PO ONE (18:49)
[2024-08-04] MEDS: METOPROLOL TARTRATE 1 MG/ML VIAL IV STA (19:05)
[2024-08-04] MEDS: METOPROLOL SUCC 25MG EXT REL TAB PO SCH (20:12)
[2024-08-05] MEDS: DOCUSATE SODIUM 100 MG CAP PO SCH (00:30)
[2024-08-05 06:03] LABS: Hematocrit (blood only) 42.6 % (37.0-47.0); Mean Corpuscular Hgb Conc 30.5 g/dL (32.0-36.0); Mean Corpuscular Volume 81.8 fL (80.0-100.0); Mean Platelet Volume 8.7 fL (9.4-12.4); Platelet Count 324 K/uL (130-400); RDW Coefficient of Variation 15.2 % (11.5-14.5); RDW Standard Deviation 45.3 fL (36.4-46.3); Red Blood Count 5.21 M/uL (4.20-5.40); White Blood Count 6.42 K/ul (4.8-10.8)
[2024-08-05 06:20] LABS: BUN Creatinine Ratio 14.3 (10-20); Calcium 9.5 mg/dl (8.6-10.3); Creatinine Clr Calc Pharmacy 91.5 ml/min
[2024-08-05 07:04] VITALS: RESP 19; TEMP 97.5
[2024-08-05 12:05] VITALS: BP 135/74; O2SAT 97
--- NOTE | 2024-08-05 14:00 | Hospitalist Progress Note ---
Date of Service August 05, 2024 Assessment & Plan (1) Palpitations: Plan: Recurrent SVT Presented with palpitations, dizziness, dyspnea, nausea Hypertension Elevated troponin likely demand ischemia secondary to above --CT head:No acute intracranial abnormality. -- Normal TSH Patient converted to sinus after adenosine by EMS Started on metoprolol succinate 25 mg twice a day Also started on losartan 25 mg daily Monitor blood pressure and adjust medications as needed Appreciate cardiology input Plan for outpatient Lexiscan stress test per cardiology Patient was also scheduled to be evaluated by EP as outpatient Will need outpatient ZIO monitor upon discharge Monitor on model maker and replete electrolytes as needed Continue current management Plan to discharge home today GERD H/O gastric bypass H/O anastomotic ulcer Continue PPI twice a day H/O chronic pain syndrome Neuropathy Depression ADHD Continue home medications Lung nodules--likely chronic Thyroid nodule--normal TSH --CT showed: Bilateral congestive changes with stable calcified right lung nodules. Right thyroid hypodense nodule measuring 12 mm. Will advised to follow-up for further workup as outpatient Chronic normocytic anemia Hemoglobin at baseline Monitor CBC HCV Completed treatment DVT Px: Lovenox SQ Code Status Full code Disposition Home Admission and Anticipated Discharge Date Admission Date: August 04, 2024 Subjective Patient is seen and examined at bedside Reports having chronic pain Feels tired No recurrence of palpitations, dyspnea Denies any chest pain, nausea, vomiting, abdominal pain Plan to be discharged home today Review of Systems Review of Systems: All systems reviewed & are unremarkable except as noted in Subjective Physical Exam Physical Exam: Physical Exam: Vitals signs as noted above General Appearance:Obese, no apparent distress Head: normocephalic, Atraumatic Eyes: normal inspection, EOMI Neck: supple, Trachea midline Respiratory/Chest: Decreased breath sounds, CTA, No accessory muscle use Cardiovascular: S1, S2, No murmur Abdomen/GI:Soft, Non tender, Bowel sounds present Extremities/Musculoskeletal:normal inspection,Trace edema Neurologic/Psych:AAOX3, grossly no focal neurological deficits Skin: normal color, warm Results & Data Results & Data Vital Signs (Past 12 Hours) Vital Signs Temp Pulse Pulse Resp BP Pulse Ox O2 Del Method 08/05/24 11:59 36.4 C L 58 L 19 135/74 97 Room Air 08/05/24 07:40 56 L 08/05/24 07:01 36.4 C L 59 L 19 109/68 95 Room Air 08/05/24 03:20 36.7 C 58 L 18 144/88 H 94 Room Air Laboratory Results Short CBC 08/05/24 Range/Units 05:39 WBC 6.42 (4.8-10.8) K/ul Hgb 13.0 (12.0-16.0) g/dl Hct 42.6 (37.0-47.0) % Plt Count 324 (130-400) K/uL BMP 08/05/24 05:39 Sodium 144 Potassium 4.0 Chloride 106 Carbon Dioxide 32 BUN 9 Creatinine 0.63 Glucose 92 Calcium 9.5
--- NOTE | 2024-08-05 14:13 | Discharge Summary ---
Date of Service August 05, 2024 Admission HPI Per Admitting Provider History obtained from patient and records. Medical history significant for PSVT, hypertension, GERD, chronic anemia (baseline hemoglobin 10-11), HCV status post Rx, history of gastric bypass, migraine, ADHD, mood disorder, chronic pain on narcotic Rx. Recent confinement June 2024 for palpitations at home attributed to recurrent SVT status post adenosine administration by EMS. 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 Vagal maneuvers recommended on discharge for termination of attacks. [place] [facility] [place]. ZIO monitor recommended by specialist office as per outpatient notes. Patient was watching television tonight when she experienced SOB, palpitations reminiscent of SVT attack but more intense. Patient felt sweaty, nauseous and dizzy. No actual chest pain. Heart rate on her watch 1 80-1 90s as per patient. EMS called to patient's home. Symptoms and heart rate improved after IV adenosine administration en route to the ER. Patient currently comfortable except for nausea symptoms.. SBP currently 160s. 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 Admission Exam Per Admitting Provider GENERAL: Comfortable, pleasant, obese, no respiratory distress SKIN: Normal color, warm HEENT: [place] palpebral conjunctivae, no ptosis, dry buccal mucosa NECK : Supple, no tenderness CHEST : CTA, no tenderness HEART : RRR, no obvious murmurs ABDOMEN: Some distention, nontender EXTREMITIES : No LE swelling/tenderness, palpable pulses, no other conspicuous deformities noted NEUROLOGIC : Coherent, no facial asymmetry, no other gross focality Principal Diagnosis Recurrent supraventricular tachycardia Chronic pain Lung nodules Thyroid nodule Discharge Data Allergies Allergy/AdvReac Type Severity Reaction Status Date / Time bee venom protein (honey bee) Allergy Severe Anaphylaxis Verified 06/17/24 13:03 sulfamethoxazole Allergy Unknown at age 20, Verified 06/17/24 13:03 can not remember what happened trimethoprim Allergy Unknown at age 20, Verified 06/17/24 13:03 can not remember what happened aripiprazole [From Abilify] AdvReac Severe Tremors Unverified 08/04/24 01:19 lactose AdvReac Intermediate ice cream Verified 06/17/24 13:03 gives her diarrhea milk AdvReac Intermediate Diarrhea Verified 06/17/24 13:03 metoclopramide [From Reglan] AdvReac Unknown Verified 08/04/24 01:19 Consultations 08/03/24 22:13 Consult Cardiology Routine Procedures Performed Laboratory Results WBC 6.42 K/ul (4.8-10.8) 08/05/24 05:39 RBC 5.21 M/uL (4.20-5.40) 08/05/24 05:39 Hgb 13.0 g/dl (12.0-16.0) 08/05/24 05:39 Hct 42.6 % (37.0-47.0) 08/05/24 05:39 MCV 81.8 fL (80.0-100.0) 08/05/24 05:39 MCH 25.0 pg (25.0-34.0) 08/05/24 05:39 MCHC 30.5 g/dL (32.0-36.0) L 08/05/24 05:39 RDW Std Deviation 45.3 fL (36.4-46.3) 08/05/24 05:39 RDW Coeff of Faizan 15.2 % (11.5-14.5) H 08/05/24 05:39 Plt Count 324 K/uL (130-400) 08/05/24 05:39 MPV 8.7 fL (9.4-12.4) L 08/05/24 05:39 Immature Gran % (Auto) 0.3 % 08/04/24 06:16 Neut % (Auto) 45.7 % 08/04/24 06:16 Lymph % (Auto) 42.8 % 08/04/24 06:16 [place] % (Auto) 9.0 % 08/04/24 06:16 Eos % (Auto) 1.7 % 08/04/24 06:16 Baso % (Auto) 0.5 % 08/04/24 06:16 Neut # (Auto) 3.01 K/uL (1.40-6.50) 08/04/24 06:16 Lymph # (Auto) 2.81 K/uL (1.20-3.40) 08/04/24 06:16 [place] # (Auto) 0.59 K/uL (0.11-0.59) 08/04/24 06:16 Eos # (Auto) 0.11 K/uL (0.00-0.50) 08/04/24 06:16 Baso # (Auto) 0.03 K/uL (0.00-0.20) 08/04/24 06:16 Immature Gran # (Auto) 0.02 K/uL (0.01-0.20) 08/04/24 06:16 APTT 34 Seconds (21-31) H 08/03/24 18:45 PTT Ratio 1.3 08/03/24 18:45 Sodium 144 mmol/L (136-145) 08/05/24 05:39 Potassium 4.0 mmol/L (3.5-5.1) 08/05/24 05:39 Chloride 106 mmol/L (98-107) 08/05/24 05:39 Carbon Dioxide 32 mmol/L (21-32) 08/05/24 05:39 Anion Gap 6 (3-11) 08/05/24 05:39 BUN 9 mg/dl (6-23) 08/05/24 05:39 Creatinine 0.63 mg/dl (0.6-1.2) 08/05/24 05:39 Est Cr Clr Drug Dosing 91.5 ml/min 08/05/24 05:39 eGFR 97.17 08/05/24 05:39 BUN/Creatinine Ratio 14.3 (10-20) 08/05/24 05:39 Glucose 92 mg/dl (70-99(Fasting)) 08/05/24 05:39 POC Glucose 92 mg/dl (70-99) 08/05/24 10:00 Estimat Average Glucose 111 mg/dl 08/03/24 18:45 Hemoglobin A1c 5.5 % (4.5-5.6) 08/03/24 18:45 Calcium 9.5 mg/dl (8.6-10.3) 08/05/24 05:39 Magnesium 2.0 mg/dl (1.7-2.4) 08/05/24 05:39 Total Bilirubin 0.3 mg/dl (0.2-1.0) 08/03/24 18:45 AST 17 U/L (13-39) 08/03/24 18:45 ALT 10 U/L (7-52) 08/03/24 18:45 Alkaline Phosphatase 73 U/L (34-104) 08/03/24 18:45 Troponin I High Sens 57.4 pg/ml (0-14) H* D 08/04/24 06:16 Total Protein 7.3 gm/dl (6.0-8.3) 08/03/24 18:45 Albumin 3.7 gm/dl (3.4-5.0) 08/03/24 18:45 Globulin 3.6 gm/dl (2.5-4.0) 08/03/24 18:45 Albumin/Globulin Ratio 1.0 (0.9-2) 08/03/24 18:45 Lipase 11 U/L (11-82) 08/03/24 18:45 TSH 1.157 uIu/ml (0.300-4.500) 08/03/24 18:45 Impressions Chest X-Ray 08/03/24 18:50 Clinical History: Chest pain Technique: A frontal view of the chest was obtained Comparison is made to the prior examination dated 06/21/2024 Findings: There are no confluent pulmonary infiltrates. The heart size is within normal limits. No pleural effusion or pneumothorax is seen. There is no definite pulmonary nodule. There is a cervical fusion. There is a right shoulder replacement Impression: No active disease Electronically signed by Markie Varghese 08-03-2024 7:58 PM Chest CTA 08/03/24 22:12 EXAM: CT angio chest PE protocol CLINICAL HISTORY: sob TECHNIQUE: CT angiography of the chest was performed with and without intravenous contrast with the following protocol: axial images with, reconstructed coronal and sagittal images. Non-contrast images were initially acquired, followed by contrast-enhanced images in arterial and venous phases. Intravenous contrast 118 ML OPTIRAY 320 was administered using automated injection techniques. Bolus tracking was employed to optimize arterial phase imaging. One of these 3D techniques was utilized: Maximum Intensity Pixel (MIP), 3D Reconstructed Images, Volume Rendered Images, Surface Shaded Rendering. One of the following dose reduction techniques was utilized for this exam: Automated exposure control, adjustment of the mA and/or kV according to patient size, and use of iterative reconstruction. COMPARISON: prior 02/12/2024 FINDINGS: Aorta and Great Vessels: Ascending Aorta: Normal in caliber, no aneurysm, dissection, or significant atherosclerosis. Aortic Arch: Normal in caliber, no aneurysm, dissection, or significant atherosclerosis. Descending Aorta: Normal in caliber, no aneurysm, dissection, or significant atherosclerosis. Pulmonary Arteries: The main pulmonary artery and its branches are patent. No evidence of pulmonary embolism or significant stenosis. Heart: Cardiac Chambers: no gross abnormality. Pericardium: No pericardial effusion or thickening. Lungs and Pleura: Bilateral congestive changes. No evidence of consolidation, collapse, or focal lesions. Bilateral upper lobar patchy ground glass attenuation, likely respiratory related. bilateral basal subpleural ground glass attenuation, likely gravitational. Right upper lobar apical and middle lobar perifissural 3 and 4 mm calcified nodules (stable). No pleural effusion or pleural thickening. Mediastinum: No mediastinal mass or abnormal lymphadenopathy. Normal appearance of the trachea and central bronchi. Hilar Structures: Hilar structures are normal without enlargement. Chest Wall: No mass lesions or abnormalities in the chest wall. Vascular Structures: Superior Vena Cava: Patent without evidence of stenosis or thrombus. Inferior Vena Cava: Patent without evidence of stenosis or thrombus. Bones and Soft Tissues: Spondylotic changes. Bilateral arthritic changes of the glenohumeral joints, with the right humeral hardware arthroplasty. No fractures, lytic, or blastic lesions of the visualized bony structures. Soft tissues are unremarkable. Moderate para-esophageal hiatus hernia, with related gastro-esophageal junction surgical sutures. Right thyroid hypodense nodule measuring 12 mm. Splenomegaly. IMPRESSION: 1. No evidence of pulmonary embolism or significant vascular stenosis. 2. Bilateral congestive changes with stable calcified right lung nodules 3. Moderate para-esophageal hiatus hernia, with related gastro-esophageal junction surgical sutures. 4. Right thyroid hypodense nodule measuring 12 mm. 5. Splenomegaly. 6. No significant interval changes. Electronically signed by Ainsley Galeas 08-04-2024 01:[address] 08/04/24 08:23 CT head/brain wo con CLINICAL HISTORY: 68 years-old Female with Dizziness. Acute dizziness TECHNIQUE: Multiple axial CT images of the head were obtained without contrast. A dose lowering technique was utilized adhering to the principles of ALARA. CT DOSE: 625.8 mGy.cm COMPARISON: 12/13/2023 FINDINGS: No acute intracranial hemorrhage, midline shift, intracranial mass, hydrocephalus, territorial ischemia or abnormal extra-axial collection. Involutional changes of the brain parenchyma. Senescent calcifications of the basal ganglia. The calvarium is intact. The paranasal sinuses, mastoid air cells, and middle ear cavities are clear. IMPRESSION: No acute intracranial abnormality. ACT 112: Negative or not required by law. The above report was generated using voice recognition software. It may contain grammatical, syntax or spelling errors. Electronically signed by: Reji Christine M.D. 08/04/2024 10:38 AM Abdomen/Pelvis CT 08/04/24 16:33 INDICATION: Abdominal pain. COMPARISON: CT abdomen pelvis from 09/24/2023. TECHNIQUE: Axial CT images of the abdomen and pelvis were obtained without IV contrast administration. Coronal and sagittal reformations were reviewed. FINDINGS: Visualized lung bases appear unremarkable. The gallbladder is surgically absent. The liver, spleen, pancreas and adrenal glands appear unremarkable. No renal calculus or hydronephrosis. Postoperative changes in the stomach and small bowel. No evidence of bowel obstruction/colitis/appendicitis. Mild retained colonic stool. No free air. No drainable fluid collection. The urinary bladder appears unremarkable. No acute osseous abnormality evident. IMPRESSION: Mild retained colonic stool. Electronically signed by Jorge Beaver 08-04-2024 5:21 PM Ordered Studies 08/03/24 22:12 CT angio chest PE protocol Stat 08/04/24 08:23 CT head/brain wo con Urgent 08/04/24 16:33 CT Abd and Pelvis [CT abd pelvis wo con] Urgent Hospital Course (1) Palpitations: Recurrent SVT Presented with palpitations, dizziness, dyspnea, nausea Hypertension Elevated troponin likely demand ischemia secondary to above --CT head:No acute intracranial abnormality. -- Normal TSH Patient converted to sinus after adenosine by EMS Started on metoprolol succinate 25 mg twice a day Also started on losartan 25 mg daily Monitor blood pressure and adjust medications as needed Appreciate cardiology input Plan for outpatient Lexiscan stress test per cardiology Patient was also scheduled to be evaluated by EP as outpatient Will need outpatient ZIO monitor upon discharge Monitor on sofa cover inspector and replete electrolytes as needed Continue current management Plan to discharge home today GERD H/O gastric bypass H/O anastomotic ulcer Continue PPI twice a day H/O chronic pain syndrome Neuropathy Depression ADHD Continue home medications Lung nodules--likely chronic Thyroid nodule--normal TSH --CT showed: Bilateral congestive changes with stable calcified right lung nodules. Right thyroid hypodense nodule measuring 12 mm. Will advised to follow-up for further workup as outpatient Chronic normocytic anemia Hemoglobin at baseline Monitor CBC HCV Completed treatment DVT Px: Lovenox SQ Code Status Full code Disposition Home Total Time Total Time Spent Total Time Spent (In Minutes): 47 minutes Discharge Plan Discharge Items Patient Disposition: Home - Self-Care Reason For Visit: PALPITATIONS Discharge Diagnosis: Recurrent supraventricular tachycardia Chronic pain Lung nodules Thyroid nodule Activity: Per Instructions section Exercise/Sports: Gradually increase as tolerated Non-emergency contact: Primary Care Provider and Set Up Mold Technician Call non-emergency contact if: you have any medication questions, your symptoms worsen, your pain is concerning for you and you have a fever Follow-up/Referrals: Pierre Hill, [Primary Care Provider] - (The office will call you with a follow up appointment.) Diet: Heart Healthy Addtl Attending Provider Instructions: Follow-up with your primary care doctor Dr. Hill in 1 week Follow-up with your ballpoint pen assembly machine operator Dr. Harp as advised Follow-up with your regulatory submissions specialist as scheduled -- ZIO monitor to be arranged by ballpoint pen assembly machine operator for ruling out arrhythmias. -- Cardiology to determine mine for possible stress test as outpatient -- Discuss with your physician for further management of thyroid, lung nodules which were incidentally noted on your CT scan as advised. --Start taking losartan, metoprolol as recommended by your ballpoint pen assembly machine operator. -- Stop taking sumatriptan as it can contribute to cardiac arrhythmias. Discuss with your primary care physician for alternative medications for migraine as needed. Seek immediate medical attention if your symptoms reoccur or worsen Please take all medications as instructed on discharge list below. Please call if you have any questions or problems. You can reach a [facility] hospitalist on duty at [facility] 24 hours a day by calling [phone] Pending Studies at Discharge: No Stand-Alone Forms: My [facility] [place], Smoking Cessation Medications and DC Order Prescriptions: New losartan 25 mg Tablet 25 mg PO QAM Qty: 30 1RF docusate sodium 100 mg Capsule 100 mg PO BID PRN (Reason: Constipation) Qty: 30 0RF metoprolol succinate 25 mg Tablet Extended Release 24 Hr 25 mg PO BID Qty: 60 1RF Continued pantoprazole 40 mg tablet,delayed release (DR/EC) 40 mg PO BID 90 Days Qty: 180 1RF Hold Instructions: Resume on 06/28/24. resume after you completed antibiotics loperamide [Imodium A-D] 2 mg capsule 2 mg PO Q6H PRN (Reason: Diarrhea) ondansetron 4 mg tablet,disintegrating 4 mg PO Q8H PRN (Reason: nausea and vomiting) Qty: 30 0RF bupropion HCl [Wellbutrin XL] 300 mg Tablet Extended Release 24 Hr 300 mg PO QAM Rx Instructions: TAKE WITH 150 MG ER = 450MG EVERY MORNING bupropion HCl [Wellbutrin XL] 150 mg Tablet Extended Release 24 Hr 150 mg PO QAM Rx Instructions: TAKE WITH 300MG XL =450MG XL EVERY MORNING epinephrine [EpiPen] 0.3 mg/0.3 mL Auto-Injector 0.3 mg IM DIRECTED PRN (Reason: Allergic Reaction) morphine 15 mg tablet extended release 15 mg PO UD Rx Instructions: fill history of 05/20 30 day supply 15 mg po bid triamcinolone acetonide 0.1 % ointment 1 applic TOPICAL BID furosemide 20 mg tablet 20 mg PO QAM duloxetine 20 mg capsule,delayed release(DR/EC) 20 mg PO QAM gabapentin 600 mg tablet 1,800 mg PO BID Pepto-Bismol 262 mg Tablet 524 mg PO QID PRN (Reason: .gi-upset) timolol maleate 0.5 % drops 1 drp OPB QAM tafluprost (PF) 0.0015 % dropperette 2 drp OPB HS Discontinued sumatriptan succinate 100 mg tablet 100 mg PO UD MDD 2TABS PRN (Reason: Migraine Headache) Rx Instructions: ONE TABLET, NEEDED FOR MIGRAINE, MAY REPEAT IN TWO HOURS. MAX DAILY = 2 TABS Discharge Orders: Discharge Order (Routine); Ordered 08/05/24 Ordered By: Phillip Dwyer Admission Data Admit Date/Time: 08/04/24 16:35 Attending Provider: Phillip Dwyer Admit Provider: Dwight Hinson Primary Care Provider: Pierre Hill Other Providers: Bethany Carpenter; Nikolay Solitario; Arben Cali; Shabbir Harp; Sergio Dior; Eliceo Gamboa; Mickie Ferraro; Leighann Lilly; Desiree Chen; Bethany Jefferson; Tay Gaspar; Guanaco Bah; Joanna Skinner; Magi Calles; Abby Landis; Guevara Huizar; Refugio Garcia; Kalani Landa; Stephanie Powers C
[2024-08-05 15:37] VITALS: PULSE 57
== END 2024-08-05 16:01 | disposition home or self-care (01) | DRG 309 ==
LOC: ED 18:32 → EDINP 18:32 → 2S 22:28

== ENCOUNTER 2024-09-29 13:00 | Inpatient (IN) ==
--- NOTE | 2024-09-29 13:27 | Emergency Department Note ---
Impression & Plan Acute knee pain, Ambulatory dysfunction, Weakness ED Provider Note NAME: IRVIN CERRATO AGE: 68 SEX: F : 1955 ARRIVES VIA: Ambulance INFORMANT: Patient ED PROVIDER(S): Candelario Rosales DO CHIEF COMPLAINT: Left knee pain HPI: Patient is a 68-year-old female with a past medical history of SVT, CRP, hypertension, hyperlipidemia, chronic knee pain who presents to the ER for left knee pain which started about 2 years ago. Has been waxing and waning in intensity. She has 2 replacements in the left knee. The symptoms started getting significantly worse over the past 24 to 48 hours. She notes she cannot walk. She cannot use crutches. She cannot move around. Patient denies any chest pain, shortness of breath, nausea, vomiting, or diarrhea. No dysuria, urgency, or frequency. No other exacerbating or remitting factors. She denies any redness of the knee but notes mild swelling. No pain in the hip hicks or femur. No pain in the foot. ADDITIONAL HISTORY OBTAINED: Per HPI Chronic Medical/Social Conditions Affecting Care: Per HPI PAST MEDICAL HISTORY:See Below PAST SURGICAL HISTORY:See Below FAMILY HISTORY:See Below SOCIAL HISTORY:See Below HOME MEDICATIONS:See Below ALLERGIES:See Below VITALS:See Below PHYSICAL EXAMINATION: GENERAL: Sitting up in bed, alert, well appearing, well nourished, no distress, non-toxic EYE EXAM: normal conjunctiva. OROPHARYNX: no exudate, no erythema, lips, buccal mucosa, and tongue normal and mucous membranes are moist NECK: supple, no nuchal rigidity, no adenopathy, non-tender LUNGS: Clear to auscultation. Normal chest wall mechanics HEART: no murmurs, S1 normal and S2 normal ABDOMEN: abdomen soft, non-tender, normo-active bowel sounds, no masses, no rebound or guarding. BACK: Back is symmetrical on inspection and there is no deformity, no midline tenderness, no CVA tenderness. SKIN: no rashes and no bruising UPPER EXTREMITIES: upper extremities are grossly normal. LOWER EXTREMITIES: No pain on palpation entire right lower extremity. Left lower extremity with no tenderness over the left hip or proximal and mid femur. Tenderness over the knee. No erythema. Slight effusion present. No tenderness throughout the mid or distal tib-fib, ankle, foot. DPs are 2 out of 4. Gross station intact. NEURO EXAM: Normal sensorium, cranial nerves II-XII grossly intact, normal speech, no gross weakness of arms, no gross weakness of legs. MEDICAL DECISION MAKING: Patient is a 68-year-old female who presents ER for left knee pain which has been getting worse. IVs were established and blood work was obtained. Labs show no significant leukocytosis and a mild anemia 11.6. BMP with mild hypokalemia 3.4. LFTs and bilirubin were unremarkable. This did occur following a fall about 2 weeks ago. X-rays show fluid. No pain with axial loading. Do not believe this consistent with a septic joint. Patient notes that she cannot take care of herself at home. Discussed case with the hospitalist for further evaluation management treatment. Consults/Care Managements Discussions: Per MDM Triage Nursing notes reviewed. Limited review of prior medical records performed Vital Signs: reviewed and remarkable for no significant abnormalities Differential diagnosis: Differential diagnosis includes etiologies such as sepsis, UTI, pneumonia, metabolic, electrolyte abnormalities, cardiac sources, intracerebral event, toxicologic, neurological, as well as others were entertained. ER treatment provided: See below Diagnostics interpreted by me include EKG and cardiac monitoring as listed below: -Cardiac Monitoring: An order was placed for continuous cardiac monitoring. The monitor shows a rate of 85 with sinus rhythm. -ECG: none -Laboratory studies:Interpreted by me as stated above in MDM and shown below. Imaging studies: Xrays: As interpreted by me: X-rays of the left knee show no acute fracture dislocation CTs show: none Procedures:none Critical Care: None Past Med/Surg History Problem List (Updated 09/29/24 @ 18:59 by Candelario Rosales DO) Weakness (Acute) Ambulatory dysfunction (Acute) Acute knee pain (Acute) History of left knee replacement Ambulatory dysfunction Palpitations Shortness of breath (Acute) Elevated troponin (Acute) Sustained SVT (Acute) Current use of aspirin (Acute) SVT (supraventricular tachycardia) (Acute) Elevated troponin (Acute) Elevated erythrocyte sedimentation rate CRP elevated Anastomotic ulcer Depression Hypertension hx Chronic pain syndrome Painful total knee replacement, left (Acute) Epigastric pain Acute encephalopathy Hypoxia Generalized pain Bilateral knee pain (Acute) Bilateral hip pain (Acute) Back pain (Acute) Rhabdomyolysis (Acute) Fall (Acute) Iron deficiency Acute alteration in mental status (Acute) Hypokalemia Painful total knee replacement Ulcer at site of surgical anastomosis following bypass of stomach Adenoma Red blood cell antibody positive, compatible PRBC difficult to obtain Vitamin D insufficiency Anxiety Osteoarthritis Neuropathy Chronic pain Anemia (Acute) Medical History Acute hypoxemic respiratory failure Altered mental status Gastric ulcer Left wrist fracture Left wrist pain Gastritis Medical marijuana use has not used several years Diarrhea Encounter for pre-operative examination Melena Acute hypotension Acute GI bleeding Hx MRSA infection dx [facility] years ago, "it was in her blood" Irritable bowel syndrome with constipation Hepatitis C hx - treated History of anesthesia reaction hx of waking up during procedures Bulging discs Scoliosis Spinal stenosis Glaucoma Attention deficit disorder (ADD) Migraine GI bleed admitted to [facility] 06/2022; no current problems Surgical History H/O gastric bypass History of partial hysterectomy History of bilateral breast reduction surgery History of bilateral tubal ligation Status post right foot surgery x7--hardware in place Status post left foot surgery x7-hardware in place History of open reduction and internal fixation (ORIF) procedure right ankle--hardware in place History of fusion of cervical spine C4-C5--normal ROM History of right shoulder replacement History of total right hip replacement History of total left knee replacement (TKR) x2 History of colonoscopy History of esophagogastroduodenoscopy (EGD) History of cholecystectomy History of appendectomy History of mandibular surgery 1978--wired shut History of tooth extraction History of wisdom tooth extraction History of eye surgery right---scar tissue from cataract sx History of bilateral cataract extraction History of cardiac cath 2005 @ [facility]---"fistula in heart between 2 valves"--no stents; no cardio, just PCP History of lung biopsy right side--benign Family History Mother Colorectal cancer Father Lung cancer Family history of esophageal cancer Brother Family history of esophageal cancer Grandfather (Maternal) Family history of esophageal cancer Other No family history of adverse response to anesthesia Social History Smoking Status: Never smoker Second Hand Exposure: No; Do You Dip or Chew Tobacco: No; Hx Alcohol Use: No Hx Substance Use: No Preferred Language: Estonian Communication Ability: Effective [employer] Supervisor Required: No Beliefs That Will Affect Care: None marital status: Single Current Living Situation: Alone Current Living Situation Comment: live in one story home with her two cats How many Children do You have: 1 Feels Safe at Home: Yes Assistive Devices: Cane and Walker Allergies Allergies Allergy/AdvReac Type Severity Reaction Status Date / Time bee venom protein (honey bee) Allergy Severe Anaphylaxis Verified 09/29/24 14:30 sulfamethoxazole Allergy Unknown at age 20, Verified 09/29/24 14:30 can not remember what happened trimethoprim Allergy Unknown at age 20, Verified 09/29/24 14:30 can not remember what happened aripiprazole [From Abilify] AdvReac Severe Tremors Unverified 09/29/24 14:30 lactose AdvReac Intermediate ice cream Verified 09/29/24 14:30 gives her diarrhea milk AdvReac Intermediate Diarrhea Verified 09/29/24 14:30 metoclopramide [From Reglan] AdvReac Unknown Verified 09/29/24 14:30 Home Meds Home Medications Medication Instructions Recorded Confirmed bupropion HCl 150 mg 24 hr tablet, 150 mg PO QAM 06/03/22 09/29/24 extended release (Wellbutrin XL) bupropion HCl 300 mg 24 hr tablet, 300 mg PO QAM 06/03/22 09/29/24 extended release (Wellbutrin XL) bismuth subsalicylate 262 mg 524 mg PO QID PRN .gi-upset 09/24/23 09/29/24 tablet (Pepto-Bismol) tafluprost (PF) 0.0015 % eye drops 2 drp OPB HS 09/24/23 09/29/24 in a dropperette timolol maleate 0.5 % eye drops 1 drp OPB QAM 09/24/23 09/29/24 epinephrine 0.3 mg/0.3 mL 0.3 mg IM DIRECTED PRN Allergic 11/29/23 09/29/24 injection, auto-injector (EpiPen) Reaction loperamide 2 mg capsule (Imodium 2 mg PO Q6H PRN Diarrhea 06/17/24 09/29/24 A-D) morphine 15 mg tablet,extended 15 mg PO BID 06/21/24 09/29/24 release duloxetine 20 mg capsule,delayed 20 mg PO QAM 08/03/24 09/29/24 release triamcinolone acetonide 0.1 % 1 applic topical BID 08/03/24 09/29/24 topical ointment gabapentin 600 mg tablet 1,800 mg PO BID 08/04/24 09/29/24 aspirin 500 mg tablet 2,500 mg PO BID 09/06/24 09/29/24 calcium carbonate (Tums) 300 mg PO BID 09/06/24 09/29/24 diphenhydramine HCl 25 mg capsule 25 mg PO DAILY PRN Allergy Symptoms 09/06/24 09/29/24 (Benadryl) metoprolol succinate 25 mg 25 mg PO BID 09/29/24 09/29/24 tablet,extended release 24 hr sumatriptan succinate 100 mg tablet 100 mg PO DAILY PRN Migraine 09/29/24 09/29/24 Headache Previous Rx's Medication Instructions Recorded pantoprazole 40 mg tablet,delayed 40 mg PO BID 90 days #180 tabs 06/08/24 release losartan 25 mg tablet 25 mg PO QAM #30 tabs 08/05/24 Results & Data (ED) Vital Signs Vital Signs - 24 hr 09/29/24 13:13 09/29/24 13:15 09/29/24 13:23 Temperature 36.7 C Temperature Source Oral Pulse Rate 74 74 73 Pulse Rate [Right Finger] Respiratory Rate 18 20 Respiratory Effort / Characteristics Respiratory Depth Blood Pressure 130/101 H Blood Pressure [Right Arm] Blood Pressure Mean 110 Blood Pressure Mean [Right Arm] Blood Pressure Position Sitting Pulse Oximetry 96 96 Oxygen Delivery Method Room Air Room Air Sepsis Recent Fever Within 48 Hours No Sepsis New/Unexplained Change in Mental Status No Sepsis Action Taken by Nursing No Action Required 09/29/24 15:13 Temperature Temperature Source Pulse Rate Pulse Rate [Right Finger] 76 Respiratory Rate 17 Respiratory Effort / Characteristics Non-Labored Respiratory Depth Normal Blood Pressure Blood Pressure [Right Arm] 100/77 Blood Pressure Mean Blood Pressure Mean [Right Arm] 84 Blood Pressure Position Pulse Oximetry 94 Oxygen Delivery Method Room Air Sepsis Recent Fever Within 48 Hours Sepsis New/Unexplained Change in Mental Status Sepsis Action Taken by Nursing Laboratory Data 09/29/24 13:39 09/29/24 13:39 Lab Results 09/29/24 Range/Units 13:39 WBC 5.18 (4.8-10.8) K/ul RBC 4.72 (4.20-5.40) M/uL Hgb 11.6 L (12.0-16.0) g/dl Hct 36.7 L (37.0-47.0) % MCV 77.8 L (80.0-100.0) fL MCH 24.6 L (25.0-34.0) pg MCHC 31.6 L (32.0-36.0) g/dL RDW Std Deviation 44.8 (36.4-46.3) fL RDW Coeff of Faizan 15.9 H (11.5-14.5) % Plt Count 278 (130-400) K/uL MPV 9.1 L (9.4-12.4) fL Immature Gran % (Auto) 0.2 % Neut % (Auto) 62.4 % Lymph % (Auto) 26.4 % [place] % (Auto) 8.3 % Eos % (Auto) 2.1 % Baso % (Auto) 0.6 % Neut # (Auto) 3.23 (1.40-6.50) K/uL Lymph # (Auto) 1.37 (1.20-3.40) K/uL [place] # (Auto) 0.43 (0.11-0.59) K/uL Eos # (Auto) 0.11 (0.00-0.50) K/uL Baso # (Auto) 0.03 (0.00-0.20) K/uL Immature Gran # (Auto) 0.01 (0.01-0.20) K/uL ESR 42 H (0-30) mm/hr Sodium 140 (136-145) mmol/L Potassium 3.4 L (3.5-5.1) mmol/L Chloride 104 (98-107) mmol/L Carbon Dioxide 29 (21-32) mmol/L Anion Gap 7 (3-11) BUN 8 (6-23) mg/dl Creatinine 0.52 L (0.6-1.2) mg/dl Est Cr Clr Drug Dosing 103.9 ml/min eGFR 101.77 BUN/Creatinine Ratio 15.4 (10-20) Glucose 105 H (70-99(Fasting)) mg/dl Calcium 9.3 (8.6-10.3) mg/dl Total Bilirubin 0.6 (0.2-1.0) mg/dl AST 16 (13-39) U/L ALT 7 (7-52) U/L Alkaline Phosphatase 72 (34-104) U/L C-Reactive Protein 1.77 H (0-0.5) mg/dl Total Protein 7.4 (6.0-8.3) gm/dl Albumin 3.9 (3.4-5.0) gm/dl Globulin 3.5 (2.5-4.0) gm/dl Albumin/Globulin Ratio 1.1 (0.9-2) Administered Medications Acetaminophen (Acetaminophen 325 Mg Tab) 650 mg PO Q6H TON Stop: 10/29/24 17:33 Last Admin: 09/29/24 18:14 Dose: 650 mg Documented By: MARSHA Diclofenac Sodium (Diclofenac Sod 1% Gel 100 Gm Tube) 4 gm EXT QID TON; Protocol Stop: 10/29/24 17:33 Last Admin: 09/29/24 18:46 Dose: 4 gm Documented By: MARSHA Famotidine (Famotidine 20 Mg Tab) 20 mg PO DAILY PRN PRN Reason: Heartburn Stop: 10/29/24 17:33 Last Admin: 09/29/24 18:18 Dose: 20 mg Documented By: MARSHA Oxycodone HCl (Oxycodone Hcl Ir 5 Mg Tab (Immediate Release)) 5 - 10 mg PO Q6H PRN PRN Reason: Pain Stop: 10/13/24 17:33 Last Admin: 09/29/24 18:21 Dose: 10 mg Documented By: MARSHA Discontinued Medications Morphine Sulfate (Morphine Sulfate 4 Mg/Ml 1 Ml Carp\\Vial) 4 mg IV NOW STA Stop: 09/29/24 13:24 Last Admin: 09/29/24 13:38 Dose: 4 mg Documented By: QGV Morphine Sulfate (Morphine Sulfate 4 Mg/Ml 1 Ml Carp\\Vial) 4 mg IV NOW STA Stop: 09/29/24 16:31 Last Admin: 09/29/24 16:37 Dose: 4 mg Documented By: CTK Ondansetron HCl (Ondansetron Inj 2 Mg/Ml 2 Ml Vial) 4 mg IV NOW STA Stop: 09/29/24 13:24 Last Admin: 09/29/24 13:38 Dose: 4 mg Documented By: QGV Potassium Chloride (Potassium Chloride Crtab 20 Meq Tabcr) 40 meq PO NOW STA Stop: 09/29/24 16:05 Last Admin: 09/29/24 16:21 Dose: 40 meq Documented By: CTK Imaging Data Radiologist's Impression: Knee X-Ray 09/29/24 13:23 XR knee LT 1 or 2V routine CLINICAL HISTORY: l knee pain COMPARISON: 09/06/2024 and 12/13/2023 FINDINGS: 2 views of the left knee demonstrate a progressive bony resorption surrounding the cement anchoring the tibial component of the left knee osteoplasty. This progressive resorption could be a manifestation of loosening or infection. There is a persistent a knee joint effusion. The margins of the articular disc space surface of the patella also appear to be more irregular. IMPRESSION: Patient who is status post left knee arthroplasty showing progressive periprosthetic bony resorption in the tibial component and the patella associated with a joint effusion. Consider infection and/ or prosthetic loosening. ACT 112: Negative or not required by law. Electronically signed by: Donna Erwin M.D. 09/29/2024 2:19 PM Discharge Plan Visit Data Chief Complaint: Knee Injury/Pain Stated Complaint: L KNEE PAIN ED Provider: Candelario Rosales Discharge Problem: Acute knee pain, Ambulatory dysfunction, Weakness Patient Disposition: Admitted As Inpatient Condition: Fair Discharge Instructions Interventions: ED Discharge Assessment Last Done: 09/29/24 17:02 Discharge Problem: Acute knee pain Qualifiers: Laterality: unspecified laterality Qualified Code(s): M25.569 - Pain in unspecified knee
[2024-09-29] MEDS: MoRPHine SULFATE 4 MG/ML 1 ML CARP\\VIAL IV STA ×2 (13:38→16:37)
[2024-09-29] MEDS: ONDANSETRON INJ 2 MG/ML 2 ML VIAL IV STA (13:38)
[2024-09-29 13:53] LABS: Basophils # (auto) 0.03 K/uL (0.00-0.20); Basophils % (auto) 0.6 %; Eosinophils # (auto) 0.11 K/uL (0.00-0.50); Eosinophils % (auto) 2.1 %; Hematocrit (blood only) 36.7 % (37.0-47.0); Hemoglobin 11.6 g/dl (12.0-16.0); Immature Granulocytes # (auto) 0.01 K/uL (0.01-0.20); Immature Granulocytes % (auto) 0.2 %; Lymphocytes # (auto) 1.37 K/uL (1.20-3.40); Lymphocytes % (auto) 26.4 %; Mean Corpuscular Hemoglobin 24.6 pg (25.0-34.0); Mean Corpuscular Hgb Conc 31.6 g/dL (32.0-36.0); Mean Corpuscular Volume 77.8 fL (80.0-100.0); Mean Platelet Volume 9.1 fL (9.4-12.4); Monocytes # (auto) 0.43 K/uL (0.11-0.59); Monocytes % (auto) 8.3 %; Neutrophils # (auto) 3.23 K/uL (1.40-6.50); Neutrophils % (auto) 62.4 %; Platelet Count 278 K/uL (130-400); RDW Coefficient of Variation 15.9 % (11.5-14.5); RDW Standard Deviation 44.8 fL (36.4-46.3); Red Blood Count 4.72 M/uL (4.20-5.40); White Blood Count 5.18 K/ul (4.8-10.8)
[2024-09-29 14:13] LABS: Albumin Globulin Ratio 1.1 (0.9-2); Albumin Level 3.9 gm/dl (3.4-5.0); BUN Creatinine Ratio 15.4 (10-20); Bilirubin,Total 0.6 mg/dl (0.2-1.0); Calcium 9.3 mg/dl (8.6-10.3); Creatinine Clr Calc Pharmacy 103.9 ml/min; Globulin 3.5 gm/dl (2.5-4.0); Potassium 3.4 mmol/L (3.5-5.1); Total Protein 7.4 gm/dl (6.0-8.3)
--- NOTE | 2024-09-29 14:21 | XRay Report ---
XR knee LT 1 or 2V routine CLINICAL HISTORY: l knee pain COMPARISON: 09/06/2024 and 12/13/2023 FINDINGS: 2 views of the left knee demonstrate a progressive bony resorption surrounding the cement anchoring the tibial component of the left knee osteoplasty. This progressive resorption could be a m anifestation of loosening or infection. There is a persistent a knee joint effusion. The margins of t he articular disc space surface of the patella also appear to be more irregular. IMPRESSION: Patient who is status post left knee arthroplasty showing progressive periprosthetic bony resorption in the tibial component and the patella associated with a joint effusion. Consider infect ion and/ or prosthetic loosening. ACT 112: Negative or not required by law. Electronically signed by: Donna Erwin M.D. 09/29/2024 2:19 PM
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
[2024-09-29] MEDS: POTASSIUM CHLORIDE CRTAB 20 MEQ TABCR PO STA (16:21)
[2024-09-29 16:27] LABS: C Reactive Protein 1.77 mg/dl (0-0.5)
[2024-09-29] MEDS ORDERED: POLYETHYLENE (MIRALAX) 17 GM PACK PO PRN (17:34)
[2024-09-29] MEDS ORDERED: MELATONIN 3 MG TAB PO PRN (17:34)
--- OUTSIDE RECORDS SUMMARY | 2024-09-29 17:37 | External Medical Summary | Summary of Care ---
Author Name Unknown Organization [facility] Address [address] [place] [address] Phone [phone] Care Team Providers Care Crystal Flat Grinder Name Role Phone Pierre Hill DO Primary Care Provider Reason for Referral * Ancillary Services (Within 10 days (routine)) - Authorized Specialty Diagnoses / Procedures Referred By Contac t Referred To Contact Cardiovascular Medicine Diagnoses Preoperative general physical examination Elevated troponin Pierre Hill DO [address] [place] [address] Phone: tel: fax: Referral ID Status Reason Start Date Expiration Date Visits Requested Visits Authorized [id number] Authorized Ancillary Services Required 09/26/2024 [id number] Question Answer Referral Priority Within 10 days (routine) Where should this appointment be scheduled? [place] What is the preferred location to have this test performed? [facility] How soon should this test be performed? 1 Week or Less Comments Not for rest Echo. Reason for Study (chest pain or anginal equivalent): Pre-op clearance Select the preferred exam: Stress Nuclear Adenosine: ischemia, viability, EF and wall motion Does the patient have a current EKG? Yes, done at [facility] Does the patient have a prior history of a stent or bypass? No Lab Results Component Value Date/Time CREATININE - GEISIN* 0.6 06/24/2024 02:43 PM CREATININE - GEISIN* 0.6 03/06/2020 07:27 AM CREATININE KADE - GE* 41 06/24/2024 02:52 PM CREATININE, RANDOM * 105 11/19/2023 12:19 PM Lab Results Component Value Date/Time BUN - [facility] 12 06/24/2024 02:43 PM BUN - [facility] 8 03/06/2020 07:27 AM Reason for Visit * Reason Comments Physical-Exam Encounter Details Date Type Department Care Team (Latest Contact Info) Description 09/26/2024 2:40 PM EDT Office Visit Family Practice [address] [facility] [place] [address] [place] [address] Pierre Hill DO [address] [place] [address] Preoperative general physical examination*; Elevated troponin; SVT (supraventricular tachycardia) (HCC); Spinal stenosis of lumbar region with neurogenic claudication; HTN, goal below 140/90; Gastroesophageal reflux disease without esophagitis; Right thyroid nodule; Gastric bypass status for obesity; DDD (degenerative disc disease), cervical; Chronic pain syndrome; Attention-deficit hyperactivity disorder, predominantly inattentive type; Status post total left knee replacement; Vitamin D deficiency; Severe episode of recurrent major depressive disorder, without psychotic features (HCC); Hepatitis C virus infection without hepatic coma, unspecified chronicity Allergies Active Allergy Reactions Criticality Noted Date [...] as of this encounter (statuses as of 09/28/2024) Medications buPROPion HCl ER (XL) 300 MG Oral Tablet Extended Release 24 Hour (Wellbutrin XL) take 1 tablet by mouth every day in the am with 150mg to make 450mg 90 Tablet 2 02/12/202 5 12:05 PM EST 08/19/19 Active Gabapentin 600 MG Oral Tablet (Neurontin) take 2 tablets by mouth three times daily 540 Tablet 1 5 12:01 PM EST 09/11/19 Active Additional Information Patient taking differently: 1,800 mg Oral BID (.AM/PM), Reported on 09/26/2024 EPINEPHrine 0.3 MG/0.3ML Injection Solution Auto-injector (Autoinjector) [...] 24 hour 10 Tablet 2 03/31/20 Active Pepto-Bismol 262 MG Oral Tablet (Bismuth Subsalicylate) Take 2 Tablets by mouth daily as needed for Heartburn (abdominal pain). Active Loperamide HCl 2 MG Oral Capsule [...] Active Vitamin B-12 1000 MCG Oral Tablet (Cyanocobalamin)In dications:Gastric bypass status for obesity Take 1 Tablet by mouth in the morning. 06/28/19 Active Furosemide 20 MG Oral Tablet (Lasix)Indications :Leg edema Take 1 Tablet by mouth in the morning. 100 Tablet 3 5 11:13 AM EST 07/08/19 25 Active Multivitamin Gummies Adult Oral Tablet Chewable Take 1 Tablet by mouth in the morning. Active DULoxetine HCl 20 MG Oral Capsule Delayed Release Particles (Cymbalta)Indicati ons:Spinal stenosis of lumbar region with neurogenic claudication Take 2 Capsules by mouth in the morning. Do not cut, crush or chew. 200 Capsule 3 08/02/19 25 Active Ferrous Sulfate 325 (65 Fe) MG Oral Tablet (Feosol) Take 1 Tablet by mouth daily. 08/09/19 25 Active Docusate Sodium 100 MG Oral Capsule (Colace) Take 1 Capsule by mouth 2 times a day as needed. 08/06/19 25 Active Losartan Potassium 25 MG Oral Tablet (Cozaar) Take 1 Tablet by mouth in the morning. 08/06/19 25 Active Metoprolol Succinate ER 25 MG Oral Tablet Extended Release 24 Hour (toPROL XL) Take 1 Tablet by mouth in the morning and 1 Tablet before bedtime. 08/06/19 25 Active Ondansetron 4 MG Oral Tablet Disintegrating (Zofran) Place 1 Tablet under the tongue every 8 hours as needed for Nausea or Vomiting. 07/07/19 25 Active Pantoprazole Sodium 40 MG Oral Tablet Delayed Release (Protonix)Indicati ons:Gastroesophage al reflux disease without esophagitis Take 1 Tablet by mouth in the morning and 1 Tablet before bedtime. 200 Tablet 1 5 4:42 PM EDT 08/10/19 25 Active Triamcinolone Acetonide 0.1 % External Ointment (Aristocort)Indica tions:Dermatitis Apply topically to affected area 2 times a day. 90 g 1 5 10:04 AM EDT 08/18/19 25 Active Knee Brace/Flex Stays LargeIndications:C hronic pain syndrome,Knee pain, left Left knee brace 1 Each 08/25/19 25 Active Morphine Sulfate ER 15 MG Oral Tablet Extended Release (Ms Contin)Indications :Chronic pain syndrome,Chronic pain of left knee Take 1 Tablet by mouth in the morning and 1 Tablet before bedtime. 60 Tablet 08/27/19 25 Active buPROPion HCl ER (XL) 150 MG Oral Tablet Extended Release 24 Hour (Wellbutrin XL)Indications:Epi sode of recurrent major depressive disorder, unspecified depression episode severity (HCC) Take 1 Tablet by mouth in the morning. 90 Tablet 2 5 1:39 PM EDT 09/20/19 25 025 Discontin ued(Refil l) documented as of this encounter (statuses as of 09/28/2024) Active Problems Problem Noted Date Diagnosed Date Right thyroid nodule 09/27/2024 Lumbar spine pain 09/01/2024 Scoliosis of lumbar spine 09/01/2024 Vertebrogenic low back pain 09/01/2024 Hepatitis C virus infection without hepatic coma [...] as of this encounter (statuses as of 09/28/2024) Resolved Problems Problem Noted Date Diagnosed Date Resolved Date Vertebrogenic low back pain 09/01/2024 09/26/2024 Severe episode of recurrent major depressive disorder, [...] as of this encounter (statuses as of 09/28/2024) Immunizations Name Administration Dates Next Due COVID-19 mRNA, LNP-s, No Pre serve, 2-Dose Series ([employer]) 08/31/2022,08/30/2020,07/30/2020 COVID-19, MRNA-LNP, PF, 30 M CG/0.3 mL, 12 YRS AND ABOVE, IM ([facility]) 03/14/2024 Covid-19, Mrna, Lnp-s, Pf, B ivalent, 30 Mcg, IM, 12 yrs and above ([employer]) 09/23/2022 Pneumococcal Conjugate Vacc, 13 Valent (Prevnar) 05/23/2015 Pneumococcal Conjugate Vacci ne, 20-valent ([id number]) 06/24/2024 Pneumococcal Polysaccharide PPV23 (Pneumovax) 02/16/2014,04/25/2008 RSV [...] Sign Reading Time Taken Comments Blood Pressure 138/74 09/26/2024 2:47 PM EDT Pulse 80 09/26/2024 2:47 PM EDT Temperature 36.4 °C (97.6 °F) 09/26/2024 2:47 PM ED T Respiratory Rate 14 09/26/2024 2:47 PM EDT Oxygen Saturation 97% 09/26/2024 2:47 PM EDT Inhaled Oxygen Concentration - - Weight 85.7 kg (189 lb) 09/26/2024 2:47 PM EDT Height 162.6 cm (5' 4") 09/26/2024 2:47 PM EDT Body Mass Index 32.44 09/26/2024 2:47 PM EDT documented in this encounter Functional Status * [...] doing errands alone such as visiting a doctor’s office or shopping? (15 years old or [...] this encounter Progress Notes * Pierre Hill, DO - 09/27/2024 12:43 PM EDT SUBJECTIVE: Milagros Mcgraw is a 68 year old female. Chief Complaint Patient presents with Physical-Exam HPI: Patient is a 68 year old female with a history of HTN, Chronic pain, Chronic back pain, Chronic left knee pain, left knee replacement, Migraine Headaches, Glaucoma, Lumbar Spinal Stenosis, Attention Deficit Disorder, DDD cervical spine, GERD, SVT, Gastric Bypass to treat Obesity, and Hepatitis C that is seen for medical evaluation prior to lumbar basivertebral nerve ablation. The patient has worsening back pain that radiates down the left leg. She was admitted to [facility] from 08/04/2024 - 08/05/2024 due to PSVT that broke with treatment with Adenosine. The patient was short of breath, sweaty and nauseous when in PSVT. Oral Metoprolol ER was started during hospitalization. Troponin was elevated due to likely demand ischemia during episode of PSVT. Cardiology evaluated the patient and recommended outpatient NM stress and Zio. No acute pathology was present on CT abdomen / pelvis. No pulmonary embolism present on CTA of the chest. Currently the patient does not have chest pain or shortness of br eath.Weight is stable and appetite is fair. Patient Active Problem List Diagnosis Chronic low [...] Hepatitis C virus infection without hepatic coma Lumbar spine pain Scoliosis of lumbar spine Current Outpatient Medications Medication Sig Dispense Refill [...] mg per 24 hour 10 Tablet 2 Loperamide HCl 2 MG Oral Capsule (Imodium) [...] mouth in the morning. 100 Tablet 3 Multivitamin Gummies Adult Oral Tablet Chewable Take 1 Tablet by mouth in the morning. DULoxetine HCl 20 MG Oral Capsule Delayed Release Particles (Cymbalta) Take 2 Capsules by mouth in the morning. Do not cut, crush or chew. 200 Capsule 3 Ferrous Sulfate 325 (65 Fe) MG Oral Tablet (Feosol) Take 1 Tablet by mouth daily. Docusate Sodium 100 MG Oral Capsule (Colace) Take 1 Capsule by mouth 2 times a day as needed. Losartan Potassium 25 MG Oral Tablet (Cozaar) Take 1 Tablet by mouth in the morning. Metoprolol Succinate ER 25 MG Oral Tablet Extended Release 24 Hour (toPROL XL) Take 1 Tablet by mouth in the morning and 1 Tablet before bedtime. Ondansetron 4 MG Oral Tablet Disintegrating (Zofran) Place 1 Tablet under the tongue every 8 hours as needed for Nausea or Vomiting. Pantoprazole Sodium 40 MG Oral Tablet Delayed Release (Protonix) Take 1 Tablet by mouth in the morning and 1 Tablet before bedtime. 200 Tablet 1 Morphine Sulfate ER 15 MG Oral Tablet Extended Release (Ms Contin) Take 1 Tablet by mouth in the morning and 1 Tablet before bedtime. 60 Tablet 0 Tafluprost (PF) 0.0015 % Ophthalmic Solution (Zioptan) Instill 1 Drop into both eyes at bedtime. Timolol Maleate 0.25 % Ophthalmic Solution (Timoptic) Instill 1 Drop into both eyes in the morning. Pepto-Bismol 262 MG Oral Tablet (Bismuth Subsalicylate) Take 2 Tablets by mouth daily as needed forHeartburn (abdominal pain). Triamcinolone Acetonide 0.1 % External Ointment (Aristocort) Apply topically to affected area 2 times a day. 90 g 1 Knee Brace/Flex Stays Large Left knee brace 1 Each 0 buPROPion HCl ER (XL) 150 MG Oral Tablet Extended Release 24 Hour (Wellbutrin XL) Take 1 Tablet by mouth in the morning. 100 Tablet 2 No current facility-administered medications for this visit. [...] recurrent major depressive disorder, without psychotic features ([facility]) 06/24/2024 Spinal stenosis of lumbar region with neurogenic claudication 03/14/2024 Status post total left knee replacement 06/24/2024 SVT (supraventricular tachycardia) ([facility]) 06/24/2024 Upper gastrointestinal bleed 03/04/2020 historical Past Surgical History: Procedure Laterality Date ARTHROPLASTY KNEE TOTAL Left EGD, FLEXIBLE, DIAGNOSTIC N/A 03/05/2020 ESOPHAGOGASTRODUODENOSCOPY (EGD), FLEXIBLE, TRANSORAL, DIAGNOSTIC performed by Cruz Cano DO at ENDOSCOPY [facility] GASTRIC BYPASS FOR OBESITY 2009 MISCELLANEOUS ORDER Right Ankle fracture repair PARTIAL HYSTERECTOMY MI APPENDECTOMY N/A MI ARTHROPLASTY GLENOHUMERAL JOINT TOTAL SHOULDER Right MI CHOLECYSTECTOMY TOTAL HIP REPLACEMENT & PROSTHESIS Right [...] Constitutional: Positive for fatigue. Negative for appetite change and unexpected weight change. HENT: Negative for [...] Psychiatric/Behavioral: Positive for decreased concentration. Negative for confusion and sleep disturbance. The patient is nervous/anxious. OBJECTIVE: BP 138/74 | Pulse 80 | Temp 97.6 °F (36.4 °C) | Resp 14 | Ht 5' 4" (1.626 m) | Wt 189 lb (85.7 kg) | LMP (LMP Unknown) | SpO2 97% | BMI 32.44 kg/m² | BSA 1.97 m² Physical Exam Vitals and nursing note reviewed. [...] is inattentive. Mood and Affect: Mood is anxious. LABS: Component Latest Ref Rng 06/24/2024 BUN 6 - 20 mg/dL 12 CREATININE 0.5 - 1.0 mg/dL 0.6 EGFR >=60 mL/min >90 SODIUM 135 - 146 mmol/L 139 POTASSIUM 3.5 - 5.1 mmol/L 3.9 CHLORIDE 98 - 107 mmol/L 101 CO2 22 - 32 mmol/L 24 ANION GAP 7 - 15 mmol/L 14 GLUCOSE 70 - 120 mg/dL 76 Albumin 3.8 - 5.0 g/dL 4.1 AST 10 - 35 U/L 23 Alkaline Phosphatase 35 - 130 U/L 100 Bilirubin, Total <=1.2 mg/dL 0.3 CALCIUM 8.4 - 10.2 mg/dL 9.2 Protein 6.0 - 8.3 g/dL 7.1 ALT 10 - 35 U/L 16 WBC 4.00 - 10.80 K/uL 6.17 Neutrophils % 40.0 - 75.0 % 54.7 Lymphocytes % 18.0 - 42.0 % 31.3 Monocytes % 1.0 - 11.0 % 8.9 Eosinophils % 0.0 - 6.0 % 3.2 Basophils % 0.0 - 2.0 % 1.1 Immature Granulocytes % 0.0 - 2.0 % 0.8 Absolute Neutrophils 1.80 - 7.70 K/uL 3.37 Absolute Lymphocytes 1.00 - 4.80 K/ul 1.93 Absolute Monocytes 0.00 - 1.10 K/uL 0.55 Absolute Eosinophils 0.00 - 0.70 K/uL 0.20 Absolute Basophils 0.00 - 0.20 K/uL 0.07 Absolute Immature Granulocytes 0.00 - 0.20 K/uL 0.05 Pain Management Interpretation Based on the medication information provided:… Amphetamine Screen, U Negative Negative Benzodiazepines Screen, U Negative Negative Cannabinoids Screen, U Negative Negative Cocaine Metabolite Screen, U Negative Negative Fentanyl Screen, U Negative Negative Hydrocodone Screen, U Negative Negative Methadone Metabolite Screen, U Negative Negative Morphine/Codeine Screen, U Negative Positive ! Oxycodone Screen, U Negative Negative Specimen Validity Interpretation Normal Creatinine, U mg/dL 41 WBC 4.00 - 10.80 K/uL 6.17 RBC 3.85 - 5.15 M/uL 4.79 HGB 12.0 - 15.3 g/dL 12.5 HCT 36.0 - 45.2 % 42.1 MCV 81.5 - 97.5 fL 87.9 MCH 27.0 - 34.0 pg 26.1 MCHC 32.0 - 36.0 g/dL 29.7 RDW 11.5 - 15.5 % 17.8 PLT 140 - 400 K/uL 485 (H) MPV 6.6 - 11.1 fL 8.9 NRBC % <=0 /100 WBCs 0 Triglycerides <=174 mg/dL 80 Cholesterol <200 mg/dL 202 (H) HDL Cholesterol >49 mg/dL 105 Non-HDL Cholesterol <=159 mg/dL 97 LDL Cholesterol <=129 mg/dL 81 HCV RNA Result Negative. No HCV RNA detected. Clinical Significance Result Comment Comment References Iron 33 - 151 ug/dL Iron Binding Capacity 250 - 425 ug/dL Transferrin Saturation Percent 15 - 55 % Vitamin B12 232 - 1,245 pg/mL 399 TSH 0.27 - 4.20 uIU/mL 1.50 Folic Acid >4.5 ng/mL Ferritin 13 - 150 ng/mL Vitamin B1 (Thiamine),B 78 - 185 nmol/L Component Latest Ref Rn 08/01/2024 BUN 6 - 20 mg/dL CREATININE 0.5 - 1.0 mg/dL EGFR >=60 mL/min SODIUM 135 - 146 mmol/L POTASSIUM 3.5 - 5.1 mmol/L CHLORIDE 98 - 107 mmol/L CO2 22 - 32 mmol/L ANION GAP 7 - 15 mmol/L GLUCOSE 70 - 120 mg/dL Albumin 3.8 - 5.0 g/dL AST 10 - 35 U/L Alkaline Phosphatase 35 - 130 U/L Bilirubin, Total <=1.2 mg/dL CALCIUM 8.4 - 10.2 mg/dL Protein 6.0 - 8.3 g/dL ALT 10 - 35 U/L WBC 4.00 - 10.80 K/uL Neutrophils % 40.0 - 75.0 % Lymphocytes % 18.0 - 42.0 % Monocytes % 1.0 - 11.0 % Eosinophils % 0.0 - 6.0 % Basophils % 0.0 - 2.0 % Immature Granulocytes % 0.0 - 2.0 % Absolute Neutrophils 1.80 - 7.70 K/uL Absolute Lymphocytes 1.00 - 4.80 K/ul Absolute Monocytes 0.00 - 1.10 K/uL Absolute Eosinophils 0.00 - 0.70 K/uL Absolute Basophils 0.00 - 0.20 K/uL Absolute Immature Granulocytes 0.00 - 0.20 K/uL Pain Management Interpretation Amphetamine Screen, U Negative Benzodiazepines Screen, U Negative Cannabinoids Screen, U Negative Cocaine Metabolite Screen, U Negative Fentanyl Screen, U Negative Hydrocodone Screen, U Negative Methadone Metabolite Screen, U Negative Morphine/Codeine Screen, U Negative Oxycodone Screen, U Negative Specimen Validity Interpretation Creatinine, U mg/dL WBC 4.00 - 10.80 K/uL RBC 3.85 - 5.15 M/uL HGB 12.0 - 15.3 g/dL HCT 36.0 - 45.2 % MCV 81.5 - 97.5 fL MCH 27.0 - 34.0 pg MCHC 32.0 - 36.0 g/dL RDW 11.5 - 15.5 % PLT 140 - 400 K/uL MPV 6.6 - 11.1 fL NRBC % <=0 /100 WBCs Triglycerides <=174 mg/dL Cholesterol <200 mg/dL HDL Cholesterol >49 mg/dL Non-HDL Cholesterol <=159 mg/dL LDL Cholesterol <=129 mg/dL HCV RNA Result Negative. No HCV RNA detected. Negative. No HCV RNA detected. Clinical Significance The HCV assay is an in vitro [...] who are HCV antibody-positive and with evidence ofliver disease, individuals suspected to be actively infected with HCV antibody evidence, and individuals at risk for HCV infection with antibodies to HCV. Detection of HCV RNA indicates that the virus is replicating and therefore is evidence of active infection. This assay is intended for use as sayra in the management of HCV-infected patients undergoing anti-viral therapy. The assay can be usedto quantify HCV RNA in serum of patients [...] of HCV in blood or blood products. Result Comment The HCV assay is an in vitro [...] IU/mL (1.18 log to 8.00 log IU/mL). Comment The assay was verified and performance characteristics determined by the [facility] at [facility]. This test is used for clinical purposes. References 1. Doyle P, Favian C, Corinne S: How to Use Virological Tools for the Optimal Management of Chronic Hepatitis C. Liver Int 2011;31 Suppl 1:3-12. … Iron 33 - 151 ug/dL 23 (L) Iron Binding Capacity 250 - 425 ug/dL 313 Transferrin Saturation Percent 15 - 55 % 7 (L) Vitamin B12 232 - 1,245 pg/mL TSH 0.27 - 4.20 uIU/mL Folic Acid >4.5 ng/mL 17.6 Ferritin 13 - 150 ng/mL 82 Vitamin B1 (Thiamine),B 78 - 185 nmol/L 168 Legend: ! Abnormal (H) High (L) Low Preoperative general physical examination (Primary) - CAD IMAGING REFERRAL OP Patient will need to have cardiac imaging as recommended at hospital discharge prior to procedure. Elevated troponin - CAD IMAGING REFERRAL OP SVT (supraventricular tachycardia) (HCC) Stable Continue Metoprolol ER Spinal stenosis of lumbar region with neurogenic claudication Continue to follow with Spine Surgery Continue Morphine, Duloxetine, and Gabapentin HTN, goal below 140/90 Continue Losartan and Metoprolol ER Gastroesophageal reflux disease without esophagitis Continue Pantoprazole Right thyroid nodule Check US at next visit Gastric bypass status for obesity DDD (degenerative disc disease), cervical Chronic pain syndrome Attention-deficit hyperactivity disorder, predominantly inattentive type Status post total left knee replacement Pain continues Vitamin D deficiency Severe episode of recurrent major depressive disorder, without psychotic features (HCC) Continue Duloxetine and Bupropion Hepatitis C virus infection without hepatic coma, unspecified chronicity Successfully treated. Follow Up: Return in about 3 months (around 12/26/2024), or if symptoms worsen or fail to improve. Pierre Hill DO 12:43 PM 09/27/2024 * Araceli Aggarwal LPN - 09/26/2024 2:45 PM EDT Pre op of back, Dr Hough 10/12 States she also needs ATB for pre op, cardiac fistula. Surgical plan: L3-4, L4-5 possible L5-S1 basivertebral nerve ablation and related procedures as indicated intraoperatively documented in this encounter Plan of Treatment Upcoming Encounters Date Type Department Care Team (Latest Contact Info) Description 09/28/2024 2:00 PM EDT Laboratory Lab [facility] [address] [place] [address] [place], Lab [address] [place] [address] 09/30/2024 1:00 PM EDT Office Visit Orthopaedics Spine Surgery [facility] [address] [place] [phone] Jarek Hough MD [address] [place] [address] 10/07/2024 10:30 AM EDT Office Visit Otolaryngology [facility] [address] [place] [address] Nanci Schwarz MD [address] [place] [address] Jovanna Salcedo Au.D. [address] [place] [address] 10/10/2024 11:45 AM EDT Imaging Radiology [facility] [address] [place] [phone] 2024 3:03 PM EDT Hospital Encounter OR [facility], Operating Room, [facility] - 4th Floor [address] [place] [address] Jarek Hough MD [address] [place] [address] 2024 3:03 PM EDT - 2024 5:12 PM EDT Surgery OR GL, Operating Room, [facility] - 4th Floor [address] [place] [address] Jarek Hough MD [address] [place] [address] THERMAL DESTRUCTION OF INTRAOSSEOUS BASIVERTEBRAL NERVE, INCLUDING ALL IMAGING GUIDANCE; FIRST 2 VERTEBRAL BODIES, LUMBAR OR SACRAL 10/17/2024 3:30 PM EDT Office Visit Orthopaedics, Tyron Hernandez [address] [place] [address] Everardo Ventura MD [address] [place] [address] 10/21/2024 1:00 PM EDT Office Visit Orthopaedics Spine Surgery [facility] [address] [facility] [place] [phone] Hallie Faria CRNP [address] [place] [phone] 11/01/2024 10:00 AM EDT Office Visit Pharmacy, [facility] [address] [facility] [place] [address] [facility] [address] [facility] [place] [address] 11/10/2024 9:00 AM EDT Office Visit Pharmacy, [facility] [address] [facility] [place] [address] [facility] [address] [place] [address] 11/10/2024 1:30 PM EDT Office Visit Orthopaedics [facility] [address] [place] [phone] Sergio Thomas, DO [address] [place] [phone] 11/14/2024 11:30 AM EDT Telemedicine Psychology [facility] [place] [address] [place] [address] Kristi Marlow, [facility] [address] [place] [address] 12/29/2024 1:00 PM EDT Office Visit Family Practice [address] [place] [address] [address] [place] [address] Pierre Hill, DO [address] [place] [address] 02/13/2025 11:30 AM EDT Imaging Radiology [facility] [address] [place] [phone] 04/25/2025 10:00 AM EST Office Visit Dermatology [facility] [address] [place] [address] Michael Tamayo MD [address] [place], [place] [address] Scheduled Procedures Name Priority Associated Diagnoses Date/Ti me THERMAL DESTRUCTION OF INTRAOSSEOUS BASIVERTEBRAL NERVE, INCLUDING ALL IMAGING GUIDANCE; FIRST 2 VERTEBRAL BODIES, LUMBAR OR SACRAL Lumbar spine pain Scoliosis of lumbar spine, unspecified scoliosis type Vertebrogenic low back pain 2024 3:03 PM EDT THERMAL DESTRUCTION OF INTRAOSSEOUS BASIVERTEBRAL NERVE, INCLUDING ALL IMAGING GUIDANCE; EACH ADD'L VERTEBRAL BODY, LUMBAR OR SACRAL Lumbar spine pain Scoliosis of lumbar spine, unspecified scoliosis type Vertebrogenic low back pain 2024 3:03 PM EDT Scheduled Referrals Name Type Priority Associated Diagnoses Orde r Schedule CAD IMAGING REFERRAL OP Referral Within 10 days (routine) Preoperative general physical examination Elevated troponin Ordered: 09/26/2024 Health Maintenance Due Date Last Done Comments [...] as of this encounter Visit Diagnoses Diagnosis Lumbar spine pain Lumbago Scoliosis of lumbar spine Scoliosis (and kyphoscoliosis), idiopathic Vertebrogenic low back pain Preoperative general physical examination- Primary Other specified pre-operative examination Elevated troponin Other abnormal blood chemistry SVT (supraventricular tachycardia) (HCC) Other specified cardiac dysrhythmias Spinal stenosis of lumbar region with neurogenic claudication Spinal stenosis, lumbar region, with neurogenic claudication HTN, goal below 140/90 Unspecified essential hypertension Gastroesophageal reflux disease without esophagitis Esophageal reflux Right thyroid nodule Nontoxic uninodular goiter Gastric bypass status for obesity Bariatric surgery status DDD (degenerative disc disease), cervical Degeneration of cervical intervertebral disc Chronic pain syndrome Attention-deficit hyperactivity disorder, predominantly inattentive type Attention deficit disorder without mention of hyperactivity Status post total left knee replacement Vitamin D deficiency Unspecified vitamin D deficiency Severe episode of recurrent major depressive disorder, without psychotic features (HCC) Hepatitis C virus infection without hepatic coma, unspecified chronicity Lumbar spine pain Lumbago Scoliosis of lumbar spine, unspecified scoliosis type Vertebrogenic low back pain documented in this encounter Advance Directives * [...] Power of Attor diallo? No Care Teams Crystal Flat Grinder Relationship Specialty Start Date End Date Pierre Hill DO [address] [place] [address] PCP - General Internal Medicine 06/24/24 documented as of this encounter
--- OUTSIDE RECORDS SUMMARY | 2024-09-29 17:37 | External Medical Summary | Summary of Care ---
Author Name Unknown Organization [facility] Address [address] [place] [address] Phone [phone] Care Team Providers Care Building Construction Contractor Name Role Phone Pierre Hill DO Primary Care Provider [phone] Reason for Referral * Precert (Within 10 days (routine)) - Authorized Specialty Diagnoses / Procedures Referred By Contac t Referred To Contact Radiology Diagnoses Lumbar spine pain Lumbar radiculopathy Spinal stenosis of lumbar region, unspecified whether neurogenic claudication present Scoliosis of lumbar spine, unspecified scoliosis type Vertebrogenic low back pain Pre-op testing Procedures MRI L SPINE WO CONTRAST Jarek Hough MD [address] [place] [address] Phone: tel: fax: Referral ID Status Reason Start Date Expiration Date V isits Requested Visits Authorized [id number] Authorized 09/01/2024 999 999 * Evaluate & Treat - Unlimited Visits (Within 10 days (routine)) - Authorized Specialty Diagnoses / Procedures Referred By Contac t Referred To Contact Physical Therapy / Physical Medicine And Rehab Diagnoses Lumbar spine pain Lumbar radiculopathy Spinal stenosis of lumbar region, unspecified whether neurogenic claudication present Scoliosis of lumbar spine, unspecified scoliosis type Jarek Hough MD [address] [facility] [place] [address] Phone: tel: fax: Referral ID Status Reason Start Date Expiration Date Visits Requested Visits Authorized [id number] Authorized Specialty Services Required 09/01/2024 999 999 Question Answer Referral Priority Within 10 days (routine) Where should this appointment be scheduled? Donna Comments Plan: cervical ROM, stretching, strengthening, periscapular strengthening, protraction/retraction exercises, gentle traction only if manual traction is beneficial 2 x week for 6 weeks Modalities for pain relief Plan: Back core strengthening, stretching, ROM, conditioning, lower extremity strengthening as needed, topicals as needed 2 x a week for 6 weeks Modalities for pain relief Reason for Visit * Reason Comments Follow Up Lumbar back pain, ra diculopathy Encounter Details Date Type Department Care Team (Late st Contact Info) Description 09/01/2024 10:45 AM EDT Office Visit Orthopaedics Spine Surgery, Tyron Hernandez [address] [place] [address] [place] [address] Jarek Hough MD [address] [place] [address] Pre-op testing*; Lumbar spine pain; Lumbar radiculopathy; Spinal stenosis of lumbar region, unspecified whether neurogenic claudication present; Scoliosis of lumbar spine, unspecified scoliosis type; Vertebrogenic low back pain Allergies Active Allergy Reactions Criticality Noted Date [...] as of this encounter (statuses as of 09/27/2024) Medications buPROPion HCl ER (XL) 300 MG Oral Tablet Extended Release 24 Hour (Wellbutrin XL) take 1 tablet by mouth every day in the am with 150mg to make 450mg 90 Tablet 2 5 12:05 PM EST 08/19/19 Active Gabapentin [...] Tablet 3 5 11:13 AM EST 07/08/19 Active Multivitamin Gummies Adult Oral Tablet Chewable [...] the morning. 90 Tablet 3 06/03/19 25 025 Discontin ued(Refil l) documented as of this encounter (statuses as of 09/27/2024) Active Problems Problem Noted Date Diagnosed Date [...] as of this encounter (statuses as of 09/27/2024) Resolved Problems Problem Noted Date Diagnosed Date [...] as of this encounter (statuses as of 09/27/2024) Immunizations Name Administration Dates Next Due COVID-19 mRNA, LNP-s, No Pre serve, 2-Dose Series ([employer]) 08/31/2022,08/30/2020,07/30/2020 COVID-19, MRNA-LNP, PF, 30 M CG/0.3 mL, 12 YRS AND ABOVE, IM ([employer]) 03/14/2024 Covid-19, Mrna, Lnp-s, Pf, B ivalent, 30 Mcg, IM, 12 yrs and above (Pfizer) 09/23/2022 Pneumococcal Conjugate Vacc, 13 Valent (Prevnar) 05/23/2015 Pneumococcal Conjugate Vacci ne, 20-valent ([id number]) 06/24/2024 Pneumococcal Polysaccharide PPV23 (Pneumovax) 02/16/2014,04/25/2008 RSV [...] Never Smokeless Tobacco: Never Tobacco Cessation:Counseling Given: No Alcohol Use Standard Drinks/Week Comments Not Currently [...] Sign Reading Time Taken Comments Blood Pressure - - Pulse - - Temperature 36.3 °C (97.4 °F) 09/01/2024 10:31 AM E DT Respiratory Rate - - Oxygen Saturation - - Inhaled Oxygen Concentration - - Weight 81.2 kg (179 lb) 09/01/2024 10:31 AM EDT Height 162.6 cm (5' 4") 09/01/2024 10:31 AM EDT Body Mass Index 30.73 09/01/2024 10:31 AM EDT documented in this encounter Functional Status [...] documented in this encounter Progress Notes * Jarek Hough MD - 09/01/2024 10:38 AM EDT Date of service: 09/01/2024 Milagros Mcgraw is a 68 year old female presents for a follow up visit with persistent back pain.She also has some episodes radiculopathy on the right side. But the back pain is the predominant problem it is worse when she sits or bends forward. This has been a longstanding problem. Patient has done some conservative measures in the past. She has a history of scoliosis and surgery has been discussed with her but considering her age, medical comorbidities as well as the extent of the surgery,that would be too high risk and option for her. She wants to look at other options. Patient denies any acute progressive neurological deficit, bowel bladder disturbances constitutional symptoms. Prior history: Allergies: Bee venom, Sulfamethoxazole-trimethoprim, Ciprofloxacin, Milk (cow), and Other allergy (see comments) The past medical, surgical, medication, family, social history was reviewed and has been documentedelsewhere in the chart ROS: Negative except as outlined in HPI Vitals: Temp 36.3 °C (97.4 °F) (Temporal Artery) | Ht 1.626 m (5' 4") | Wt 81.2 kg (179 lb) | LMP(LMP Unknown) | BMI 30.73 kg/m² | BSA 1.92 m² Body mass index is 30.73 kg/m². Physical Exam: General: alert, healthy and no distress. The general appearance appears normal. Cardiovascular system: Vascular status grossly preserved in the extremities Spine evaluation: Overlying skin unremarkable. No paraspinal swelling in the paraspinal and periscapular region. No obvious deformity. Diffuse tenderness in the lower lumbar region. Neurological examination: Gross motor power Upper extremities - Bilateral shoulder abductors, elbow flexors, triceps, wrist flexors and extensors and intrinsic muscles of the hand 5/5. Lower extremities - Bilateral hip flexors, knee extensors, ankle dorsiflexors, ankle plantar flexors, EHL/EDL, FHL/FDL 4+/5. The deep tendon reflexes - Bilateral Biceps, triceps, brachioradialis, Patellar tendon, Achilles tendon are 2+. Sensation are grossly preserved bilaterally in the upper extremities. Sensation are grossly preserved bilaterally in the lower extremities. Radiological imaging: I independently reviewed the relevant radiological imaging including the x-rays ordered at this visit and discussed with the patient X-rays of the lumbar spine including dynamic view show presence of multilevel degenerative changes.There is left-sided lumbar curvature. There is diffuse osteopenia. MRI lumbar September 18, 2021: Multilevel degenerative changes with varying degree of stenosis. Modic endplate changes at L3-4, L4-5, L5-S1 level. Lumbar levoscoliosis with associated multilevel degenerative disc disease seen throughout the lumbar spine, resulting in moderate to marked multilevel neuroforaminal stenosis. Overall, the findings are without significant change when compared to the prior MRI lumbar spine dated 01/11/2016. Assessment & Plan: Pt is a 68 year old female here for the following problems/concerns: Lumbar back pain Vertebrogenic back pain with Modic changes at L3-4, L4-5, L5-S1 Lumbar radiculopathy Lumbar spinal stenosis Lumbar scoliosis We discussed the diagnosis, the natural history and treatment options. The role of continued conservative treatment versus that of surgical intervention was again explained. Patient's symptoms appearto be multifactorial. Physical therapy was ordered. She is encouraged to discuss about evaluation treatment of osteoporosis with her primary care. Patient does not want an extensive surgery but is looking at options which can give her some relief of her back pain. We discussed the role of basivertebral nerve ablation procedure. Patient was made aware that this may address some of her back pain but will not be of any help with her scoliosis or the radiculopathy symptoms. After detailed discussion, patient would like to consider this option. Surgical indication: Vertebrogenic back pain with Modic changes at L3-4, L4-5, L5-S1 of many years duration. Symptoms persistent and affecting activities of daily living. Failed conservative treatment Surgical plan: L3-4, L4-5 possible L5-S1 basivertebral nerve ablation and related procedures as indicated intraoperatively Surgical workup Clearance by the primary care Investigations for medical optimization Repeat MRI of the lumbar spine for surgical planning Surgical counseling: The plan of management was device based on shared decision making with the patient. We discussed the various potential risks and complications associated with the procedure including but not limited to persistent back pain, surgical site infection, bleeding, hematoma, inadequate relief of symptoms,development endplate fractures, other known issues related to degenerative changes in the lumbar spine, need for repeat intervention, difficulty in approaching the area of concern because of imaging problems, retained foreign body other medical, surgical and anesthesia complications. The patient was also made aware about the possibility of persistent back pain and related issues in spite of a successful intervention. The patient understands the same and wants to proceed with the surgical intervention. The patient also understands that she is to follow up with her primary care for the management of chronic pain issues. The patient was given the opportunity to ask questions. The patient adequately understands the above risks and wants to proceed with the intervention. Additional recommendations: Activity modification as tolerated Pain medications as per the primary care. If the patient has persistence or worsening of symptoms additional investigations will be recommended. Warning signs have been discussed. Follow up: 4-6 weeks Patient to reach out earlier if any acute worsening of symptoms. The patient expressed understanding and agreement to the plan. Complexity of decision making: High I spent 35 minutes on 09/01/2024 in preparation, delivery and documentation of the care provided to the patient, excluding any time spent on the performance of the procedure are separately billable service. Jarek Hough MD This chart was completed in part utilizing [employer] Voice Recognition Software. Grammatical errors, random word insertions, prounoun errors and incomplete sentences are an occasional consequence of this system due to software limitations, ambient noise, and hardware issues. Any formal questions or concerns about the content, text, or information contained within the body of this dictation should be directly addressed to the provider for clarification. documented in this encounter Nursing Notes * Jamey Szymanski LPN - 09/01/2024 10:34 AM EDT F/U Lumbar back pain, radiculopathy Morphine PT for back was helping and knee 07/28/2024 stopped d/t pain of knee Pain management last injection was years ago in [facility] not recent . documented in this encounter Miscellaneous Notes * Addendum Note - Jamey Szymanski LPN - 09/02/2024 7:34 AM EDTAddended by: JAMEY SZYMANSKI on: 09/02/2024 07:34 AM Modules accepted: Orders * Addendum Note - Jamey Szymanski LPN - 09/01/2024 11:12 AM EDTAddended by: JAMEY SZYMANSKI on: 09/01/2024 11:12 AM Modules accepted: Orders documented in this encounter Plan of Treatment Upcoming Encounters Date Type Department Care Team (Latest Contact Info) Description 09/28/2024 2:00 PM EDT Laboratory Lab [address] [facility] [address], Lab [address] [place] [address], [place] [address] 09/30/2024 1:00 PM EDT Office Visit Orthopaedics Spine Surgery [facility] [address] [place] [phone] Jarek Hough MD [address] [place] [address] 10/07/2024 10:30 AM EDT Office Visit Otolaryngology [facility] [address] [place] [address] Nanci Schwarz MD [address] [place] [address] Jovanna Salcedo Au.D. [address] [place] [address] 10/10/2024 11:45 AM EDT Imaging Radiology [facility] [address] [place] [phone] 2024 3:03 PM EDT Hospital Encounter OR [facility], Operating Room, [facility] - 4th Floor [address] [place] [address] Jarek Hough MD [address] [place] [address] 2024 3:03 PM EDT - 2024 5:12 PM EDT Surgery OR [facility], Operating Room, [facility] - 4th Floor [address] [place] [address] Jarek Hough MD [address] [place] [address] THERMAL DESTRUCTION OF INTRAOSSEOUS BASIVERTEBRAL NERVE, INCLUDING ALL IMAGING GUIDANCE; FIRST 2 VERTEBRAL BODIES, LUMBAR OR SACRAL 10/17/2024 3:30 PM EDT Office Visit Orthopaedics, Tyron Hernandez [address] [place] [address] [place] [address] Everardo Ventura MD [address] [place] [address] 10/21/2024 1:00 PM EDT Office Visit Orthopaedics Spine Surgery [facility] [address] [phone] Hallie Faria CRNP [address] [place] [address] 11/01/2024 10:00 AM EDT Office Visit Pharmacy, [facility] [address] [place] [address] [place], [facility] [address] [place] [address] 11/10/2024 9:00 AM EDT Office Visit Pharmacy, [facility] [address] [place] [address] [facility] [address] [place] [address] 11/10/2024 1:30 PM EDT Office Visit Orthopaedics [facility] [address] [place] [phone] Sergio Thomas, DO [address] [place] [phone] 11/14/2024 11:30 AM EDT Telemedicine Psychology [facility] [address]ngel Hall [address] [place] [address] Kristi Marlow, [facility] [address] [place] [address] 12/29/2024 1:00 PM EDT Office Visit Family Practice [address] [place] [address] [address] [facility] [place] [address] Pierre Hill, DO [address] [place] [address] 02/13/2025 11:30 AM EDT Imaging Radiology [facility] [address] [place] [phone] 04/25/2025 10:00 AM EST [facility] [address] [place] [address] Michael Tamayo MD [address] [place] [address] Scheduled Orders Name Type Priority Associated Diagnoses Orde r Schedule MRI L SPINE WO CONTRAST Medical Imaging Routine Lumbar spine pain Lumbar radiculopathy Spinal stenosis of lumbar region, unspecified whether neurogenic claudication present Scoliosis of lumbar spine, unspecified scoliosis type Vertebrogenic low back pain Pre-op testing Expected: 09/01/2024, Expires: 10/01/2025 URINALYSIS, REFLEX TO MICROSCOPIC Lab Pre-operative Lumbar spine pain Lumbar radiculopathy Spinal stenosis of lumbar region, unspecified whether neurogenic claudication present Scoliosis of lumbar spine, unspecified scoliosis type Vertebrogenic low back pain Pre-op testing Expected: 09/02/2024 (Approximate), Expires: 09/02/2025 PT INR Lab Pre-operative Lumbar spine pain Lumbar radiculopathy Spinal stenosis of lumbar region, unspecified whether neurogenic claudication present Scoliosis of lumbar spine, unspecified scoliosis type Vertebrogenic low back pain Pre-op testing Expected: 09/02/2024 (Approximate), Expires: 09/02/2025 HEMOGLOBIN A1C Lab Pre-operative Lumbar spine pain Lumbar radiculopathy Spinal stenosis of lumbar region, unspecified whether neurogenic claudication present Scoliosis of lumbar spine, unspecified scoliosis type Vertebrogenic low back pain Pre-op testing Expected: 09/02/2024 (Approximate), Expires: 09/02/2025 COMPREHENSIVE METABOLIC PANEL Lab Pre-operative Lumbar spine pain Lumbar radiculopathy Spinal stenosis of lumbar region, unspecified whether neurogenic claudication present Scoliosis of lumbar spine, unspecified scoliosis type Vertebrogenic low back pain Pre-op testing Expected: 09/02/2024 (Approximate), Expires: 09/02/2025 CBC Lab Pre-operative Lumbar spine pain Lumbar radiculopathy Spinal stenosis of lumbar region, unspecified whether neurogenic claudication present Scoliosis of lumbar spine, unspecified scoliosis type Vertebrogenic low back pain Pre-op testing Expected: 09/02/2024 (Approximate), Expires: 09/02/2025 Scheduled Procedures Name Priority Associated Diagnoses Date/Ti [...] Schedule PHYSICAL THERAPY REFERRAL OP Referral Within 10 days (routine) Lumbar spine pain Lumbar radiculopathy Spinal stenosis of lumbar region, unspecified whether neurogenic claudication present Scoliosis of lumbar spine, unspecified scoliosis type Ordered: 09/01/2024 Health Maintenance Due Date Last Done Comments DXA Scan 1956 Cologuard 2001 Colonoscopy 2001 Sigmoidoscopy 2001 Zoster Vaccines (1 of 2) 2006 Colorectal Cancer Screening 06/26/2010 Fecal Occult Blood Test 06/26/2010 06/26/2009 Mammogram 09/28/2012 09/29/2011 Adult Wellness Visit 2022 *NEPHROLOGY REFERRAL DUE TO RESISTANT HTN 08/11/2024 COVID-19 Vaccine ( season) 2024 03/14/2024, 09/23/2022, [...] Procedure Name Priority Date/Time Associated Diagnosis Comments XR L SPINE COMPLETE Routine 09/01/2024 1 0:49 AM EDT Lumbar spine pain documented in this encounter Results * XR L SPINE MINIMUM 4 VIEWS (09/01/2024 10:49 AM EDT) Anatomical Region Laterality Modality Vertebra, Lspine Digital Radiogr aphy 09/02/2024 4:45 PM EDT Impressions 09/02/2024 4:42 PM EDT IMPRESSION Severe degenerative disc disease. Narrative 09/02/2024 4:42 PM EDT EXAM XR L SPINE MINIMUM 4 VIEWS - 09/01/2024 10:49 am HISTORY lumbar back pain COMPARISON XR L SPINE COMPLETE, ACC: [id number], dated 2024-02-12 11:23:53; MRI L SPINE WO CONTRAST, ACC: [id number], dated 2021-09-03 15:03:12 TECHNIQUE Four views FINDINGS Moderate levoscoliosis and straightening of lumbar lordosis, stable. Grade 1 anterolisthesis L4-L5 without significant dynamic instability. Severe diffuse degenerative disc disease lumbar spine. No evidence for fracture. Procedure Note Julius Bradshaw, DO - 09/02/2024 EXAM XR L SPINE MINIMUM 4 VIEWS - 09/01/2024 10:49 am HISTORY lumbar back pain COMPARISON XR L SPINE COMPLETE, ACC: [id number], dated 2024-02-12 11:23:53; MRI L SPINE WO CONTRAST, ACC: [id number], dated 2021-09-03 15:03:12 TECHNIQUE Four views FINDINGS Moderate levoscoliosis and straightening of lumbar lordosis, stable.Grade 1 anterolisthesis L4-L5 without significant dynamic instability.Severe diffuse degenerative disc disease lumbar spine. No evidence forfracture. IMPRESSION IMPRESSION Severe degenerative disc disease. Jarek Hough MD RADIOLOGY ([facility]) Final Result documented in this encounter Visit Diagnoses Diagnosis Pre-op testing- Primary Preoperative examination, unspecified Lumbar spine pain Lumbago Lumbar radiculopathy Thoracic or lumbosacral neuritis or radiculitis, unspecified Spinal stenosis of lumbar region, unspecified whether neurogenic claudication present Scoliosis of lumbar spine, unspecified scoliosis type Vertebrogenic low back pain Lumbar spine pain Lumbago Scoliosis of lumbar spine Scoliosis (and kyphoscoliosis), idiopathic Lumbar spine pain Lumbago Scoliosis of lumbar [...] Power of Attor diallo? No Care Teams Building Construction Contractor Relationship Specialty Start Date End Date Pierre Hill DO [address] [place] [address] PCP - General Internal Medicine 06/24/24 documented as of this encounter
--- OUTSIDE RECORDS SUMMARY | 2024-09-29 17:37 | External Medical Summary | Summary of Care ---
Author Name Unknown Organization [facility] Address [address] [place] [address] Phone [phone] Care Team Providers Care Wire Weaver Cloth Name Role Phone Pierre Hill DO Primary Care Provider [phone] Reason for Visit * Reason Onset Date Comments Scheduling 09/27/2024 Encounter Details Date Type Department Care Team (Late st Contact Info) Description 09/27/2024 Telephone Orthopaedics Spine Surgery, Tyron Hernandez [address] [place] [address] Jarek Hough MD [address] [place] [address] Scheduling Allergies Active Allergy Reactions Criticality Noted Date [...] mouth in the morning. 100 Tablet 2 09/27/19 25 Active documented as of this encounter (statuses [...] mRNA, LNP-s, No Pre serve, 2-Dose Series ([employer]) 08/31/2022,08/30/2020,07/30/2020 COVID-19, MRNA-LNP, PF, 30 M CG/0.3 mL, 12 YRS AND ABOVE, IM ([employer]) 03/14/2024 Covid-19, Mrna, Lnp-s, Pf, B ivalent, 30 Mcg, IM, 12 yrs and above ([employer]) 09/23/2022 Pneumococcal Conjugate Vacc, 13 Valent (Prevnar) 05/23/2015 Pneumococcal Conjugate Vacci ne, 20-valent ([id number]) 06/24/2024 Pneumococcal Polysaccharide PPV23 (Pneumovax) 02/16/2014,04/25/2008 RSV [...] encounter Miscellaneous Notes * Telephone Encounter - Balbina Awan CMA - 09/27/2024 11:52 AM EDT This patient needs her MRI r/s sooner. She is currently scheduled on the same day as her surgery, 10/10/2024. She needs to do this at minimal a day before. Thanks. documented in this encounter Plan of Treatment Upcoming Encounters Date Type Department Care Team (Latest Contact Info) Description 09/28/2024 1:00 PM EDT Laboratory Lab 65 [facility], [address] [address] [place], Lab [address] [place] [address] 09/30/2024 1:00 PM EDT Office Visit Orthopaedics Spine Surgery [facility] [address] [place] [phone] Jarek Hough MD [address] [place] [address] 10/07/2024 10:30 AM EDT Office Visit Otolaryngology [facility] [place] [address] Nanci Schwarz MD [address] [facility] [place] [address] Jovanna Salcedo Au.D. [facility] [place] [address] 10/10/2024 11:45 AM EDT Imaging Radiology [facility]st [facility] [address] [place] [phone] 2024 3:03 PM EDT Hospital Encounter OR [facility], Operating Room, [facility] - 4th Floor [address] [place] [phone] Jarek Hough MD [address] [place] [address] 2024 3:03 PM EDT - 2024 5:12 PM EDT Surgery OR [facility], Operating Room, [facility] - 4th Floor [address] [place] [phone] Jarek Hough MD [address] [place] [address] THERMAL DESTRUCTION OF INTRAOSSEOUS BASIVERTEBRAL NERVE, INCLUDING ALL IMAGING GUIDANCE; FIRST 2 VERTEBRAL BODIES, LUMBAR OR SACRAL 10/17/2024 3:30 PM EDT Office Visit Orthopaedics, Tyron Hernandez [address] [place] [address] Everardo Ventura MD [address] [place] [address] 10/21/2024 1:00 PM EDT Office Visit Orthopaedics Spine Surgery [facility] [address] [place] [phone] Hallie Faria CRNP [address] [place] [phone] 11/01/2024 10:00 AM EDT Office Visit Pharmacy, [facility] [address] [place] [address] [facility] [address] [place] [address] 11/10/2024 9:00 AM EDT Office Visit Pharmacy, [facility] [address] [place] [address] [facility] [address] [place] [address] 11/10/2024 1:30 PM EDT Office Visit Orthopaedics [facility] [address] [place] [phone] Sergio Thomas, [address] [place] [phone] 11/14/2024 11:30 AM EDT Telemedicine Psychology Miguel Ángel Hall [address] [place] [phone] Kristi Marlow PRODUCTION ENGINEER TRACK 9 [place] [phone] 12/29/2024 1:00 PM EDT Office Visit Family Practice 65 [facility] 293 [place] [address] Pierre Hill, 293 [place] [address] 02/13/2025 11:30 AM EDT Imaging Radiology [facility] [address] [place] [phone] 04/25/2025 10:00 AM EST Office Visit Dermatology [facility] [address] [place] [address] Michael Tamayo MD [address] [place] [address] Scheduled Procedures Name Priority Associated Diagnoses Date/Ti [...] low back pain 2024 3:03 PM EDT Health Maintenance Due Date Last Done Comments DXA Scan 1956 Cologuard 2001 Colonoscopy 2001 Sigmoidoscopy 2001 Zoster Vaccines (1 of 2) 2006 Colorectal Cancer Screening 06/26/2010 Fecal Occult Blood Test 06/26/2010 06/26/2009 Mammogram 09/28/2012 09/29/2011 Adult Wellness Visit 2022 *NEPHROLOGY REFERRAL DUE TO RESISTANT HTN 08/11/2024 COVID-19 Vaccine ( season) 2024 03/14/2024, 09/23/2022, 08/31/2022, Additional history exists GFR 06/24/2025 06/24/2024, 10/0 12/2023, 03/07/2024, Additional [...] Power of Attor diallo? No Care Teams Wire Weaver Cloth Relationship Specialty Start Date End Date Pierre Hill DO [address] [place] [address] PCP - General Internal Medicine 06/24/24 documented as of this encounter
--- OUTSIDE RECORDS SUMMARY | 2024-09-29 17:37 | External Medical Summary | Summary of Care ---
Author Name Unknown Organization [facility] Address [address] [place] [address] Phone [phone] Care Team Providers Care Millinery Blocker Name Role Phone Pierre Hill DO Primary Care Provider [phone] Reason for Referral * Precert (Within 10 days (routine)) - Authorized Specialty Diagnoses / Procedures Referred By Contac t Referred To Contact Radiology Diagnoses Preoperative cardiovascular examination Elevated troponin SVT (supraventricular tachycardia) (HCC) HTN, goal below 140/90 Chronic low back pain Spinal stenosis of lumbar region with neurogenic claudication Procedures NM MYOCARD PERF IMG SPECT MULT STUDIES WITH PHARM INTERV Shabbir Harp DO [address] [place] [address] Phone: tel: fax: Referral ID Status Reason Start Date Expiration Date V isits Requested Visits Authorized [id number] Authorized Precert 10/04/2024 [id number] Encounter Details Date Type Department Care Team (Late st Contact Info) Description 09/27/2024 Orders Only Cardiology, [facility] [address] [place] [phone] Shabbir Harp DO [address] [place] [address] Preoperative cardiovascular examination*; Elevated troponin; SVT (supraventricular tachycardia) (HCC); HTN, goal below 140/90; Chronic low back pain; Spinal stenosis of lumbar region with neurogenic claudication Allergies Active Allergy Reactions Criticality Noted Date [...] hour 10 Tablet 2 03/31/20 24 Active Pepto-Bismol 262 MG Oral Tablet (Bismuth [...] mouth in the morning. 06/28/19 25 Active Furosemide 20 MG Oral Tablet (Lasix)Indications [...] 2 times a day. 90 g 1 10:04 AM EDT 08/18/19 25 Active Knee [...] mRNA, LNP-s, No Pre serve, 2-Dose Series ([employer]) 08/31/2022,08/30/2020,07/30/2020 COVID-19, MRNA-LNP, PF, 30 M CG/0.3 mL, 12 YRS AND ABOVE, IM ([employer]) 03/14/2024 Covid-19, Mrna, Lnp-s, Pf, B ivalent, 30 Mcg, IM, 12 yrs and above ([employer]) 09/23/2022 Pneumococcal Conjugate Vacc, 13 Valent (Prevnar) 05/23/2015 Pneumococcal Conjugate Vacci ne, 20-valent ([id number]) 06/24/2024 Pneumococcal Polysaccharide PPV23 (Pneumovax) 02/16/2014,04/25/2008 RSV [...] documented in this encounter Progress Notes * Julee De Leon TECH - 09/27/2024 3:12 PM EDT Images from the original note were not included. CAD Imaging Referral Note Any response to this note should be sent to Julee De Leon MS, [employer], Cardiology Imaging Program. DO NOT REPLY TO THE PHYSICIAN REVIEWER Milagros Akira Mcgraw is a 68 year old female who was referred by Dr. Pierre Hill for evaluation of preop clearance (back surgery), elevated Troponin. Preferred exam: Pharm Nuclear Stress test Reviewing Correctional Supervisor Lieutenant: Dr Shabbir Harp Orders placed: Pharm Nuclear Stress test, patient will be contacted and scheduled. Test location: [facility] or [facility] location Referral priority: 1 week or less From Dr. Hill's Progress Note on 09/26/2024: HPI: Patient is a 68 year old [...] the left leg. She was admitted to [facility] from 08/04/2024 - 08/05/2024 due to [...] embolism present on CTA of the chest. From Dr. Hough's Orthopaedic Surgery Progress Note on 09/23/2024: As per patient preference, connection with the patient via audio only occurred. The patient was informed this was a phone call only visit and was identified by name and date of . The patient agreed to participate. Total call duration was 10 minutes. Patient continues to have back pain in relation to the degenerative changes in the back. She has occasional radiculopathy but the back pain is the predominant symptom. This is a longstanding problem and patient has done number of conservative measures in the past. She has significant scoliosis and the role of surgical intervention along with the risks have been discussed. With her age and medicalcomorbidities, patient is not keen on a major surgical intervention. She is looking for a less invasive procedure. In view of the same we discussed the intercept procedure. The patient had questions about the procedure and these were answered. All the details were provided. Patient would like to reschedule the procedure in view of some personal issues and the same has been conveyed that the surgical instrument maker. Radiological imaging: I independently reviewed the relevant [...] and wants to proceed with the intervention. From Dr. Harp's IP Cardiology Progress Note on 08/04/2024 ([facility]): Patient Active Problem List Diagnosis Chronic low [...] Lumbar spine pain Scoliosis of lumbar spine Right thyroid nodule Vertebrogenic low back pain Current Outpatient Medications Medication Sig Dispense Refill [...] mg per 24 hour 10 Tablet 2 Pepto-Bismol 262 MG Oral Tablet (Bismuth Subsalicylate) Take 2 Tablets by mouth daily as needed forHeartburn (abdominal pain). Loperamide HCl 2 MG Oral Capsule (Imodium) [...] 1 Tablet before bedtime. 200 Tablet 1 Triamcinolone Acetonide 0.1 % External Ointment (Aristocort) Apply topically to affected area 2 times a day. 90 g 1 Knee Brace/Flex Stays Large Left knee brace 1 Each 0 Morphine Sulfate ER 15 MG Oral Tablet Extended Release (Ms Contin) Take 1 Tablet by mouth in the morning and 1 Tablet before bedtime. 60 Tablet 0 buPROPion HCl ER (XL) 150 MG Oral Tablet Extended Release 24 Hour (Wellbutrin XL) Take 1 Tablet by mouth in the morning. 100 Tablet 2 No current facility-administered medications for this visit. ASCVD 10-Year Risk Score Current as of about an hour ago 8.7 0 to < 5 Points: Low Risk 5 to < 7.5 Points: Borderline Risk 7.5 to < 20 Points: Intermediate Risk 20 to 100 Points: High Risk Last Change: The ASCVD risk score (Edwardo MARTINES Jr, et al., 2013) returns the percentage likelihood of a first time ASCVD event. Age: 68 Legal Sex: Female Non- : No Smokes Tobacco: No Has Diabetes Excluding Gestational Diabetes: No Systolic BP: 138 HDL: 105 mg/dL Total cholesterol: 202 mg/dL Is BP Treated: Yes Cardiac Studies: See [facility] record system for most current EKG and Echocardiogram EKG 03/07/2024 CONCLUSIONS: Normal sinus rhythm some baseline wandering no significant ST and T wave abnormalities No previous ECGs available Ventricular Rate: 75 Atrial Rate: 250 QRS Duration: 100 QT/QTc: 370/413 ms P-R-T [place]: 0 : -9 : 25 degrees Echo 03/27/2016 The patient is in a sinus rhythm with a heart rate in the 70s. Contrast was utilized. FINAL IMPRESSIONS: 1. Very technically limited study with normal left ventricular size and function. 2. Grossly normal atrial sizes, but with the right atrium being poorly seen. 3. Right ventricular function in limited views appears normal. 4. No significant valvular stenosis or insufficiencies. 5. No evidence of intracardiac shunt. 6. No pericardial effusion. 7. A cardiac source of emboli is not identified on this transthoracic echocardiogram. Julee De Leon MS, [facility] [employer], Cardiology Imaging Program documented in this encounter Plan of Treatment Upcoming Encounters Date Type Department Care Team (Latest Contact Info) Description 09/28/2024 2:00 PM EDT Laboratory Lab 65 [facility] 293 [facility], [place] [address] [place], Lab [address] [place] [address] 09/30/2024 1:00 PM EDT Office Visit Orthopaedics [facility] [address] [place] [phone] Jarek Hough MD [address] [place] [address] 10/07/2024 10:30 AM EDT Office Visit Otol[facility] [address] [place] [address] Nanci Schwarz MD [address] [place] [address] Jovanna Salcedo Au.D. [address] [place] [address] 10/10/2024 11:45 AM EDT Imaging Radiology [address] [place] [phone] 2024 3:03 PM EDT Hospital Encounter OR [facility], Operating Room, [facility] - 4th Floor [address] [place] [phone] Jarek Hough MD [address] [place] [address] 2024 3:03 PM EDT - 2024 5:12 PM EDT Surgery OR [facility], Operating Room, [facility] - 4th Floor [address] [place] [phone] Jarek Hough MD [address] [place] [address] THERMAL DESTRUCTION OF INTRAOSSEOUS BASIVERTEBRAL NERVE, INCLUDING ALL IMAGING GUIDANCE; FIRST 2 VERTEBRAL BODIES, LUMBAR OR SACRAL 10/17/2024 3:30 PM EDT Office Visit Orthopaedics, Tyron Hernandez [address] [place] [address] Everardo Ventura MD [address] [place] [address] 10/21/2024 1:00 PM EDT Office Visit Orthopaedics Spine Surgery [facility] [address] [place] [phone] Hallie Faria CRNP [address] [place] [address] 11/01/2024 10:00 AM EDT Office Visit Pharmacy, [facility] [address] [place] [address] [facility] [address] [place], [place] [address] 11/10/2024 9:00 AM EDT Office Visit Pharmacy, [facility] [address] [place] [address] [facility] [address] [place], [place] [address] 11/10/2024 1:30 PM EDT Office Visit Orthopaedics [facility] [address] [place] [phone] Sergio Thomas DO [address] [place] [phone] 11/14/2024 11:30 AM EDT Telemedicine Psychology Miguel Ángel Hall [address] [place] [address] Kristi Marlow, GENERATION ENGINEERING TECHNOLOGIST [address] [place] [address] 12/29/2024 1:00 PM EDT Office Visit Family Practice [address] [place] 293 [place] [address] Pierre Hill, [address] [place] [address] 02/13/2025 11:30 AM EDT Imaging Radiology [facility] [address] [place] [phone] 04/25/2025 10:00 AM EST Office Visit Dermatology [facility] 200 [facility] [place] [address] Michael Tamayo MD [address] [place] [address] Scheduled Orders Name Type Priority Associated Diagnoses Orde r Schedule NM MYOCARD PERF IMG SPECT MULT STUDIES WITH PHARM INTERV Cardiology Routine Preoperative cardiovascular examination Elevated troponin SVT (supraventricular tachycardia) (HCC) HTN, goal below 140/90 Chronic low back pain Spinal stenosis of lumbar region with neurogenic claudication Expected: 10/04/2024 (Approximate), Expires: 10/27/2025 Scheduled Procedures Name Priority Associated Diagnoses Date/Ti [...] kyphoscoliosis), idiopathic Vertebrogenic low back pain Preoperative cardiovascular examination- Primary Pre-operative cardiovascular examination Elevated troponin Other abnormal blood chemistry SVT (supraventricular tachycardia) (HCC) Other specified cardiac dysrhythmias HTN, goal below 140/90 Unspecified essential hypertension Chronic low back pain Lumbago Spinal stenosis of lumbar region with neurogenic claudication Spinal stenosis, lumbar region, with neurogenic claudication Lumbar spine pain Lumbago Scoliosis of lumbar [...] Power of Attor diallo? No Care Teams Millinery Blocker Relationship Specialty Start Date End Date Pierre Hill DO [address] [place] [address] PCP - General Internal Medicine 06/24/24 documented as of this encounter
--- OUTSIDE RECORDS SUMMARY | 2024-09-29 17:37 | External Medical Summary | Summary of Care ---
Author Name Unknown Organization [facility] Address [address] [place] [address] Phone [phone] Care Team Providers Care Biological Science Aide Name Role Phone Mitchell Hill DO Primary Care Provider [phone] Reason for Visit * Reason Onset Date Comments Medication Refill 09/26/2024 Encounter Details Date Type Department Care Team (Late st Contact Info) Description 09/26/2024 Refill Family Practice [address], [place] [address] [place] [phone] Mitchell Hill DO [address] [place], [place] [phone] Episode of recurrent major depressive disorder, unspecified [...] morning. 100 Tablet 2 09/27/19 25 Active buPROPion HCl ER (XL) 150 [...] Active Problems Problem Noted Date Diagnosed Date Lumbar spine pain 09/01/2024 Scoliosis of lumbar spine 09/01/2024 Hepatitis C virus infection without hepatic [...] mRNA, LNP-s, No Pre serve, 2-Dose Series ([employer] 08/31/2022,08/30/2020,07/30/2020 COVID-19, MRNA-LNP, PF, 30 M CG/0.3 mL, 12 YRS AND ABOVE, IM ([employer]) 03/14/2024 Covid-19, Mrna, Lnp-s, Pf, B ivalent, 30 Mcg, IM, 12 yrs and above ([employer] 09/23/2022 Pneumococcal Conjugate Vacc, 13 Valent (Prevnar) 05/23/2015 Pneumococcal Conjugate Vacci ne, 20-valent ([id number]) 06/24/2024 Pneumococcal Polysaccharide PPV23 (Pneumovax) 02/16/2014,04/25/2008 RSV [...] Telephone Encounter - Mitchell Hill DO - 09/26/2024 4:41 PM EDTSigned Prescriptions: Disp Refills buPROPion HCl ER (XL) 150 MG Oral Tablet E*100 Ta*2 Sig: Take 1 Tablet by mouth in the morning.Authorizing Provider: MITCHELL HILL * Telephone Encounter - Araceli Aggarwal LPN - 09/26/2024 3:10 PM EDTPending Prescriptions: Disp Refills buPROPion HCl ER (XL) 150 MG Oral Tablet E*100 Ta*2 Sig: Take 1 Tablet by mouth in the morning. * Telephone Encounter - Yuki Chua OSA - 09/26/2024 2:40 PM EDT Did you pend patient's preferred pharmacy and medication before forwarding? Pharmacy: [facility] Pending Prescriptions: Disp Refills buPROPion HCl ER (XL) 150 MG Oral Tablet *90 Tab*2 Sig: Take 1 Tablet by mouth in the morning. Last Visit: 08/01/2024 (in office), 08/08/2024 (telemedicine) Next Visit: Visit date not found [...] 09/28/2024 1:00 PM EDT Laboratory Lab [address] [address] [address] [place] [address] 09/30/2024 1:00 PM EDT Office Visit Orthopaedics Spine Surgery [facility] [address] [place] [phone] Jarek Hough MD [address] [place] [phone] 10/07/2024 10:30 AM EDT Office Visit Otol[facility] [place] [address] Nanci Schwarz MD [facility] [place] [address] Jovanna Salcedo Au.D. [facility] [place] [address] 10/10/2024 11:45 AM EDT Imaging Radiology [facility] 1st [facility] [address] [place] [phone] 10/10/2024 12:40 PM EDT Hospital Encounter OR [facility], Operating Room, [facility] - 4th Floor [address] [place] [phone] Jarek Hough MD [address] [place] [address] 10/10/2024 12:40 PM EDT - 10/10/2024 2:49 PM EDT Surgery OR [facility], Operating Room, [facility] Floor [address] [place] [address] Jarek Hough MD [address] [place] [address] THERMAL DESTRUCTION OF INTRAOSSEOUS BASIVERTEBRAL NERVE, INCLUDING ALL IMAGING GUIDANCE; FIRST 2 VERTEBRAL BODIES, LUMBAR OR SACRAL 10/17/2024 3:30 PM EDT Office Visit Orthopaedics, Tyron Hernandez [address] [place] [address] [place] [address] Everardo Ventura MD [address] [place] [address] 10/21/2024 1:00 PM EDT Office Visit Orthopaedics Spine Surgery [facility] [address] [place] [phone] Hallie Faria CRNP [address] [place] [phone] 11/01/2024 10:00 AM EDT Office Visit Pharmacy, [facility] [address] [place] [address] [facility] [address] [place] [address] 11/10/2024 9:00 AM EDT Office Visit Pharmacy, [facility] [address] [place] [address] [facility] [address] [place] [address] 11/10/2024 1:30 PM EDT Office Visit Orthopaedics [facility] [address] [place] [phone] Sergio Thomas, [address] [place] [phone] 11/14/2024 11:30 AM EDT Telemedicine Psychology Miguel Ángel Hlal [address] [place] [phone] Kristi Marlow [facility] 9 [place] [address] 12/29/2024 1:00 PM EDT Office Visit Family Practice 65 [facility], [place] 293 [place] [address] Mitchell Hill DO 293 [place] [address] 02/13/2025 11:30 AM EDT Imaging Radiology [facility] [address] [place] [phone] 04/25/2025 10:00 AM EST Office Visit Dermatology [facility] 200 [facility] [address] Michael Tamayo MD [address] [place] [address] Scheduled Procedures Name Priority Associated Diagnoses Date/Ti me THERMAL DESTRUCTION OF INTRAOSSEOUS BASIVERTEBRAL NERVE, INCLUDING ALL IMAGING GUIDANCE; FIRST 2 VERTEBRAL BODIES, LUMBAR OR SACRAL Lumbar spine pain Scoliosis of lumbar spine, unspecified scoliosis type Vertebrogenic low back pain 10/10/2024 12:40 PM EDT THERMAL DESTRUCTION OF INTRAOSSEOUS BASIVERTEBRAL NERVE, INCLUDING ALL IMAGING GUIDANCE; EACH ADD'L VERTEBRAL BODY, LUMBAR OR SACRAL Lumbar spine pain Scoliosis of lumbar spine, unspecified scoliosis type Vertebrogenic low back pain 10/10/2024 12:40 PM EDT Health Maintenance Due Date Last [...] of lumbar spine Scoliosis (and kyphoscoliosis), idiopathic Episode of recurrent major depressive disorder, unspecified depression episode severity (HCC) Lumbar spine pain Lumbago Scoliosis of lumbar [...] Power of Attor diallo? No Care Teams Biological Science Aide Relationship Specialty Start Date End Date Mitchell Hill DO [address] [place] [address] PCP - General Internal Medicine 06/24/24 documented as of this encounter
--- OUTSIDE RECORDS SUMMARY | 2024-09-29 17:38 | External Medical Summary | Summary of Care ---
Author Name Unknown Organization [facility] Address [address] [place] [address] Phone [phone] Care Team Providers Care Wall Mirror Department Supervisor Name Role Phone Pierre Hill DO Primary Care Provider [phone] Reason for Visit * Reason Onset Date Comments Advice 09/22/2024 Encounter Details Date Type Department Care Team (Late st Contact Info) Description 09/22/2024 Telephone Orthopaedics Spine Surgery, Electric Tyron Puente [address] [place] [address] Jarek Hough MD [address] [place] [address] Advice Allergies Active Allergy Reactions Criticality Noted Date [...] as of this encounter (statuses as of 09/22/2024) Medications buPROPion HCl ER (XL) 300 MG [...] 1,800 mg Oral BID (.AM/PM), Reported on 08/08/2024 EPINEPHrine 0.3 MG/0.3ML Injection Solution Auto-injector (Autoinjector) [...] mouth in the morning. 90 Tablet 2 09/20/19 25 Active documented as of this encounter (statuses as of 09/22/2024) Active Problems Problem Noted Date Diagnosed Date [...] as of this encounter (statuses as of 09/22/2024) Resolved Problems Problem Noted Date Diagnosed Date [...] as of this encounter (statuses as of 09/22/2024) Immunizations Name Administration Dates Next Due COVID-19 mRNA, LNP-s, No Pre serve, 2-Dose Series (EquityNet) 08/31/2022,08/30/2020,07/30/2020 COVID-19, MRNA-LNP, PF, 30 M CG/0.3 mL, 12 YRS AND ABOVE, IM (PFIZER-Comirnaty) 03/14/2024 Covid-19, Mrna, Lnp-s, Pf, B ivalent, 30 Mcg, IM, 12 yrs and above (Pfizer) 09/23/2022 Pneumococcal Conjugate Vacc, 13 Valent (Prevnar) 05/23/2015 Pneumococcal Conjugate Vacci ne, 20-valent ([id number]) 06/24/2024 Pneumococcal Polysaccharide PPV23 (Pneumovax) 02/16/2014,04/25/2008 RSV [...] No 06/24/2024 Does the household have a [facility] source [facility] income? (Household - for ages [...] encounter Miscellaneous Notes * Telephone Encounter - Jeni Hadley OSA - 09/22/2024 4:22 PM EDT LMOM to call office to discuss * Telephone Encounter - Jeni Hadley OSA - 09/22/2024 4:00 PM EDT PT calling inquiring speaking with medical. [facility] regarding obtaining injection in lower back [phone] documented in this encounter Plan of Treatment Upcoming Encounters Date Type Department Care Team (Latest Contact Info) Description 09/23/2024 1:45 PM EDT Laboratory Lab [address], [place] 293 [facility] [place] [address] [place], [facility] 65 [facility] 293 [facility] [place] [address] 09/23/2024 3:00 PM EDT Telemedicine Orthopaedics Spine Surgery [facility] [address] [place] [phone] Jarek Hough MD [address] [place] [address] 09/26/2024 2:40 PM EDT Office Visit Family Practice [address] [place] [address] 293 [facility] [place] [address] Pierre Hill, 293 [place] [address] 09/30/2024 1:00 PM EDT Office Visit Orthopaedics Spine Surgery [facility] [address] [place] [phone] Jarek Hough MD [address] [place] [address] 10/07/2024 10:30 AM EDT Office Visit Otolaryngology [facility] [address] [place] [address] Nanci Schwarz MD [address] [place] [address] Jovanna Salcedo Au.D. [address] [place] [address] 10/10/2024 11:45 AM EDT Imaging Radiology [address] [place] [phone] 10/10/2024 12:40 PM EDT Hospital Encounter OR [facility], Operating Room, [facility] - 4th Floor [address] [place] [address] Jarek Hough MD [address] [place] [address] 10/10/2024 12:40 PM EDT - 10/10/2024 2:49 PM EDT Surgery OR [facility], Operating Room, [facility] - 4th Floor [address] [place] [address] Jarek Hough MD [address] [place] [address] THERMAL DESTRUCTION OF INTRAOSSEOUS BASIVERTEBRAL NERVE, INCLUDING ALL IMAGING GUIDANCE; FIRST 2 VERTEBRAL BODIES, LUMBAR OR SACRAL 10/14/2024 11:45 AM EDT Office Visit Cardiology, [facility] [address] [place] [phone] Leighann Lilly, DO [address] [place] [address] 10/21/2024 1:00 PM EDT Office Visit Orthopaedics Spine Surgery [facility] [address] [place] [address] Hallie Faria CRNP [address] [place] [address] 11/01/2024 10:00 AM EDT Office Visit Pharmacy, [facility] [address] [place] [address] El[facility]o [facility] [place] [address] 11/10/2024 9:00 AM EDT Office Visit Pharmacy, [facility] [address] [place] [address] Eliseo [facility] [address] [place] [address] 11/10/2024 1:30 PM EDT Office Visit Orthopaedics [facility] [address] [place] [address] Sergio Thomas, [address] [place] [phone] 11/14/2024 11:30 AM EDT Telemedicine Psychology [place] [address] [place] [address] Kristi Marlow, [facility] [address] [place] [address] 02/13/2025 11:30 AM EDT Imaging Radiology [facility] [address] [place] [address] 04/25/2025 10:00 AM EST Office Visit [facility]ermatology [facility] [address] [place] [address] Michael Tamayo MD [address] [place] [address] Scheduled Procedures Name Priority Associated Diagnoses Date/Ti [...] 08/31/2022, Additional history exists GFR 06/24/2025 06/24/2024, 1012/2023, 03/07/2024, Additional history [...] Power of Attor diallo? No Care Teams Wall Mirror Department Supervisor Relationship Specialty Start Date End Date Pierre Hill DO [address] [place] [address] PCP - General Internal Medicine 06/24/24 documented as of this encounter
--- OUTSIDE RECORDS SUMMARY | 2024-09-29 17:38 | External Medical Summary | Summary of Care ---
Author Name Unknown Organization [facility] Address [address] [place] [address] Phone [phone] Care Team Providers Care Water Tanker Driver Name Role Phone Pierre Hill DO Primary Care Provider [phone] Reason for Referral * Evaluate & Treat - Unlimited Visits (Within 10 days (routine)) - Authorized Specialty Diagnoses / Procedures Referred By Dmitri pitts Referred To Contact Orthopaedic Surgery / Orthopedics Diagnoses Chronic pain of left knee History of revision of total replacement of left knee joint Sergio Thomas DO [address] [place] [address] Phone: tel: fax: Everardo Ventura MD [address] [place] [address] Phone: tel: fax: Referral ID Status Reason Start Date Expiration Date Visits Requested Visits Authorized [id number] Authorized Specialty Services Required 09/22/2024 999 999 Question Answer Referral Priority Within 10 days (routine) Where should this appointment be scheduled? [facility] What body part is the patient being seen for? Thigh/Knee What condition is the patient being seen for? Arthritis including related infection Reason for Visit * Reason Comments Follow Up Left knee painS/P TK A x2 Encounter Details Date Type Department Care Team (Late st Contact Info) Description 09/22/2024 11:15 AM EDT Office Visit Orthopaedics [facility] [address] [place] [address] Sergio Thomas, [address] [place] [phone] Chronic pain of left knee*; History of total knee arthroplasty, left; History of revision of total replacement of left knee joint Allergies Active Allergy Reactions Criticality Noted Date [...] mRNA, LNP-s, No Pre serve, 2-Dose Series (Agiliance) 08/31/2022,08/30/2020,07/30/2020 COVID-19, MRNA-LNP, PF, 30 M CG/0.3 mL, 12 YRS AND ABOVE, IM (PFIZER-Comirnaty) 03/14/2024 Covid-19, Mrna, Lnp-s, Pf, B ivalent, 30 Mcg, IM, 12 yrs and above (Pfizer) 09/23/2022 Pneumococcal Conjugate Vacc, 13 Valent (Prevnar) 05/23/2015 Pneumococcal Conjugate Vacci ne, 20-valent ([id number]) 06/24/2024 Pneumococcal Polysaccharide PPV23 (Pneumovax) 02/16/2014,04/25/2008 RSV [...] documented in this encounter Progress Notes * Sergio Thomas, DO - 09/22/2024 11:42 AM EDT ORTHOPAEDIC SURGERY - Clinic Note SUBJECTIVE: Milagros Mcgraw is a 68 year old female. Chief Complaint Patient presents with Follow Up Left knee pain S/P TKA x2 HPI: She presents today for follow-up of her left knee pain and history of revision total knee replacement. She saw Dr. Lugo in January of 2024 and was recommended physical therapy. She states her symptoms were made worse with physical therapy. Due to driving restrictions she was unable to return to see him in [place]. She presents today for follow-up evaluation. In the interim she has been evaluated for lumbar spine related issues and is awaiting injection therapy after seeing ortho spine. Review of Systems: Constitutional ROS: No fevers, sweats, or chills Cardiovascular ROS: No chest pain Gastrointestinal ROS: No abdominal pain Musculoskeletal/Extremities ROS: Pain Neurologic ROS: No numbness or tingling Review of patient's allergies indicates: Allergen Reactions Bee Venom Anaphylaxis Other reaction(s): Other (document details in comments), Unspecified anaphylasis Sulfamethoxazole-Trimethoprim Anaphylaxis and Hives Other reaction(s): Other (document details in comments) Ciprofloxacin Other reaction(s): Other (See Comments) nightmares Milk (Cow) Other reaction(s): Other (See Comments) Bloating, IBS Other Allergy (See Comments) Adhesive Tape Current Outpatient Medications Medication Sig Dispense Refill [...] mouth in the morning. 90 Tablet 2 No current facility-administered medications for this visit. Patient Active Problem List Diagnosis Chronic low [...] Lumbar spine pain Scoliosis of lumbar spine Vertebrogenic low back pain Past Medical History: Diagnosis Date Attention-deficit hyperactivity disorder, predominantly inattentive type 03/14/2024 Chronic low back pain 03/04/2020 Chronic pain syndrome 04/08/2024 DDD (degenerative disc disease), cervical 03/14/2024 Depression Gastric bypass status for obesity 06/24/2024 Gastroesophageal reflux disease without esophagitis 04/08/2024 GI bleed Hypertension Migraine 03/04/2020 Personal history of gastric bypass Severe episode of recurrent major depressive disorder, without psychotic features (HCC) 06/24/2024 Spinal stenosis of lumbar region with neurogenic claudication 03/14/2024 Status post total left knee replacement 06/24/2024 SVT (supraventricular tachycardia) (HCC) 06/24/2024 Upper gastrointestinal bleed 03/04/2020 historical Past Surgical History: Procedure Laterality Date ARTHROPLASTY KNEE TOTAL Left EGD, FLEXIBLE, DIAGNOSTIC N/A 03/05/2020 ESOPHAGOGASTRODUODENOSCOPY (EGD), FLEXIBLE, TRANSORAL, DIAGNOSTIC performed by Cruz Cano DO at ENDOSCOPY [facility] GASTRIC BYPASS FOR OBESITY 2010 MISCELLANEOUS ORDER Right Ankle fracture repair PARTIAL HYSTERECTOMY NV APPENDECTOMY N/A NV ARTHROPLASTY GLENOHUMERAL JOINT TOTAL SHOULDER Right NV CHOLECYSTECTOMY TOTAL HIP REPLACEMENT & PROSTHESIS Right Social History Tobacco Use Smoking status: Never Smokeless tobacco: Never Vaping Use Vaping status: Never Used Substance Use Topics Alcohol use: Not Currently Comment: occasional Drug use: Not Currently Family history: Noncontributory OBJECTIVE: Diagnostic Testing: None today Vital Signs: LMP (LMP Unknown) Physical Exam: Examination left knee is unchanged from previous evaluation. Well-healed surgical scar. No significant effusion. Range of motion at baseline. No evidence of instability. She currently presents today wheelchair. Gait assessment was not performed. She is distally neurovascularly intact. ASSESSMENT: Chronic pain of left knee (Primary) - ORTHOPAEDICS REFERRAL OP History of total knee arthroplasty, left History of revision of total replacement of left knee joint - ORTHOPAEDICS REFERRAL OP Follow Up: Return if symptoms worsen or fail to improve. PLAN: We once again discussed her prior imaging and concern for loosening of her tibial component. At this point she is not able to return to [place] for follow-up. Recommendation was to continue follow-up care with adult recon specialist. I offered her an appointment with Dr. Ventura locally as he will be returning in September. She was in agreement. A referral was placed. All questions answered. This chart was completed in part utilizing [employer] Speech Voice Recognition Software. Grammatical errors, random word insertions, pronoun errors, and incomplete sentences are an occasional consequence of this system due to software limitations, ambient noise, and hardware issues. Any formal questions or concerns about the content, text, or information contained within the body of this dictation should be directly addressed to the provider for clarification. Sergio Thomas DO 09/22/2024 11:42 AM documented in this encounter Nursing Notes * Annette Phillips CMA - 09/22/2024 11:00 AM EDT Chief Complaint Patient presents with Follow Up Left knee pain S/P TKA x2 documented in this encounter Plan of Treatment Upcoming Encounters Date Type Department Care Team (Latest Contact Info) Description 09/23/2024 1:45 PM EDT Laboratory Lab 65 [facility] 293 [place] [address] [place], Lab [address] [place] [address] 09/23/2024 3:00 PM EDT Telemedicine Orthopaedics Spine Surgery [facility] [address] [place] [phone] Jarek Hough MD [address] [place] [address] 09/26/2024 2:40 PM EDT Office Visit Family Practice [address] [place] [address] 293 [place] [address] Pierre Hill, 293 [place] [address] 09/30/2024 1:00 PM EDT Office Visit Orthopaedics Spine Surgery [facility] [address] [place] [phone] Jarek Hough MD [address] [place] [address] 10/07/2024 10:30 AM EDT Office Visit Otolaryngology [facility] [address] [place] [address] Nanci Schwarz MD [address] [place] [address] Jovanna Salcedo Au.D. [address] [place] [address] 10/10/2024 11:45 AM EDT Imaging Radiology [address] [place] [address] 10/10/2024 12:40 PM EDT Hospital Encounter OR [facility], Operating Room, [facility] - 4th Floor [address] [place] [address] Jarek Hough MD [address] [place] [address] 10/10/2024 12:40 PM EDT - 10/10/2024 2:49 PM EDT Surgery OR [facility], Operating Room, [facility] - 4th Floor [address] [place] [address] Jarek Hough MD [address] [place] [address] THERMAL DESTRUCTION OF INTRAOSSEOUS BASIVERTEBRAL NERVE, INCLUDING ALL IMAGING GUIDANCE; FIRST 2 VERTEBRAL BODIES, LUMBAR OR SACRAL 10/14/2024 11:45 AM EDT Office Visit Cardiology, [facility] [address] [place] [address] Leighann Lilly DO [address] [place] [address] 10/21/2024 1:00 PM EDT Office Visit Orthopaedics Spine Surgery [facility] [address] [place] [address] Hallie Faria CRNP [address] [place] [phone] 11/01/2024 10:00 AM EDT Office Visit Pharmacy, [facility] [address] [place] [address] Eliseo [facility] [address] [place] [address] 11/10/2024 9:00 AM EDT Office Visit Pharmacy, [facility] [address] [facility] [place] [address] [facility] [address] [place], [place] [address] 11/10/2024 1:30 PM EDT Office Visit Orthopaedics [facility] [address] [facility] [place] [address] Sergio Thomas, [address] [facility] [place] [address] 11/14/2024 11:30 AM EDT Telemedicine Psychology [facility] 9 [place] [address] Kristi Marlow, [facility] [address] [place] [address] 02/13/2025 11:30 AM EDT Imaging Radiology [facility] [address] [facility] [place] [phone] 04/25/2025 10:00 AM EST Office Visit Dermatology [facility] 200 [facility] [place] [address] Michael Tamayo MD [address] [place] [address] Scheduled Procedures Name Priority Associated Diagnoses Date/Ti [...] low back pain 10/10/2024 12:40 PM EDT Scheduled Referrals Name Type Priority Associated Diagnoses Orde r Schedule ORTHOPAEDICS REFERRAL OP Referral Within 10 days (routine) Chronic pain of left knee History of revision of total replacement of left knee joint Ordered: 09/22/2024 Health Maintenance Due Date Last Done Comments [...] (and kyphoscoliosis), idiopathic Vertebrogenic low back pain Chronic pain of left knee- Primary Pain in joint, lower leg History of total knee arthroplasty, left History of revision of total replacement of left knee joint Lumbar spine pain Lumbago Scoliosis of lumbar [...] Power of Attor diallo? No Care Teams Water Tanker Driver Relationship Specialty Start Date End Date Pierre Hill DO [address] [place] [address] PCP - General Internal Medicine 06/24/24 documented as of this encounter
--- OUTSIDE RECORDS SUMMARY | 2024-09-29 17:38 | External Medical Summary | Summary of Care ---
Author Name Unknown Organization [facility] Address [address] [place] [address] Phone [phone] Care Team Providers Care Hand Cutter Name Role Phone Pierre Hill DO Primary Care Provider [phone] Reason for Visit * Reason Onset Date Comments Advice 09/22/2024 Encounter Details Date Type Department Care Team (Late st Contact Info) Description 09/22/2024 Telephone Orthopaedics Spine Surgery, Electric Tyron Puente [address] [place] [address] Jarek Hough MD [address] [place] [address] Advice Allergies Active Allergy Reactions [...] mRNA, LNP-s, No Pre serve, 2-Dose Series (TriNovus) 08/31/2022,08/30/2020,07/30/2020 COVID-19, MRNA-LNP, PF, 30 M CG/0.3 mL, 12 YRS AND ABOVE, IM (PFIZER-Comirnaty) 03/14/2024 Covid-19, Mrna, Lnp-s, Pf, B ivalent, 30 Mcg, IM, 12 yrs and above (Pfizer) 09/23/2022 Pneumococcal Conjugate Vacc, 13 Valent (Prevnar) 05/23/2015 Pneumococcal Conjugate Vacci ne, 20-valent ([id number]) 06/24/2024 Pneumococcal Polysaccharide PPV23 (Pneumovax) 02/16/2014,04/25/2008 RSV [...] No 06/24/2024 Does the household have a [facility] source of income? (Household - [...] EDT PT calling inquiring speaking with medical. [facility] regarding obtaining injection in lower back [phone] documented in this encounter Plan of Treatment Upcoming Encounters Date Type Department Care Team (Latest Contact Info) Description 09/23/2024 1:45 PM EDT Laboratory Lab [address] [place] 293 [place] [address] [place] 65 [facility] 293 [place] [address] 09/23/2024 3:00 PM EDT Telemedicine Orthopaedics Spine Surgery [facility] [address] [place] [address] Jarek Hough MD [address] [place] [address] 09/26/2024 2:40 PM EDT Office Visit Family Practice [address] [place] [address] 293 [place] [address] Pierre Hill, 293 [place] [address] 09/30/2024 1:00 PM EDT Office Visit Orthopaedics Spine Surgery [facility] [address] [place] [phone] Jarek Hough MD [address] [place] [address] 10/07/2024 10:30 AM EDT Office Visit Otolaryngology [facility] [address] [place] [address] Nanci Schwarz MD [address] [place] [address] Jovanna Salcedo Au.D. [address] [place] [address] 10/10/2024 11:45 AM EDT Imaging Radiology [address] [place] [address] 10/10/2024 12:40 PM EDT Hospital Encounter [facility], Operating Room, [facility] - 4th Floor [address] [place] [address] Jarek Hough MD [address] [place] [address] 10/10/2024 12:40 PM EDT - 10/10/2024 2:49 PM EDT Surgery OR [facility], Operating Room, [facility] - 4th Floor [address] [place] [address] Jarek Hough MD [address] [place] [address] THERMAL DESTRUCTION OF INTRAOSSEOUS BASIVERTEBRAL NERVE, INCLUDING ALL IMAGING GUIDANCE; FIRST 2 VERTEBRAL BODIES, LUMBAR OR SACRAL 10/14/2024 11:45 AM EDT Office Visit Cardiology, [facility] [address] [place] [phone] Leighann Lilly, DO [address] [place] [address] 10/21/2024 1:00 PM EDT Office Visit Orthopaedics Spine Surgery [facility] [address] [place] [address] Hallie Faria CRNP [address] [place] [address] 11/01/2024 10:00 AM EDT Office Visit Pharmacy, [facility] [address] [place] [address] El[facility] [facility] [place] [address] 11/10/2024 9:00 AM EDT Office Visit Pharmacy, [facility] [address] [place] [address] El[place] [facility] [address] [place] [address] 11/10/2024 1:30 PM EDT Office Visit Orthopaedics [facility] [address] [place] [address] Sergio Thomas, [address] [place] [phone] 11/14/2024 11:30 AM EDT Telemedicine Psychology [place] [address] [place] [address] Kristi Marlow, [facility] [address] [place] [address] 02/13/2025 11:30 AM EDT Imaging Radiology [facility] [address] [place] [address] 04/25/2025 10:00 AM EST Office Visit [facility]ermatology [facility] [address] [place] [address] Michael Tamayo MD [address] [place] [address] Scheduled Procedures Name Priority Associated Diagnoses Date/Ti [...] of Attor diallo? No Care Teams Hand Cutter Relationship Specialty Start Date End Date Pierre Hill DO [address] [place] [address] PCP - General Internal Medicine 06/24/24 documented as of this encounter
--- OUTSIDE RECORDS SUMMARY | 2024-09-29 17:38 | External Medical Summary | Summary of Care ---
Author Name Unknown Organization [facility] Address [address] [place] [address] Phone [phone] Care Team Providers Care Hand Cigar Making Supervisor Name Role Phone Pierre Hill DO Primary Care Provider [phone] Reason for Visit * Reason Onset Date Comments Appointment 09/17/2024 Encounter Details Date Type Department Care Team ([facility] st Contact Info) Description 09/17/2024 Telephone Radiology, [address] [address] Diego Diaz, RT Appointment Allergies Active Allergy Reactions Criticality Noted [...] as of this encounter (statuses as of 09/17/2024) Medications buPROPion HCl ER (XL) 300 MG [...] before bedtime. 60 Tablet 08/27/19 25 Active documented as of this encounter (statuses as of 09/17/2024) Active Problems Problem Noted Date Diagnosed Date [...] as of this encounter (statuses as of 09/17/2024) Resolved Problems Problem Noted Date Diagnosed Date [...] as of this encounter (statuses as of 09/17/2024) Immunizations Name Administration Dates Next Due COVID-19 mRNA, LNP-s, No Pre serve, 2-Dose Series (Elixserve) 08/31/2022,08/30/2020,07/30/2020 COVID-19, MRNA-LNP, PF, 30 M CG/0.3 mL, 12 YRS AND ABOVE, IM (PFIZER-Comirnat) 03/14/2024 Covid-19, Mrna, Lnp-s, Pf, B ivalent, 30 Mcg, IM, 12 yrs and above (Pfizer) 09/23/2022 Pneumococcal Conjugate Vacc, 13 Valent (Prevnar) 05/23/2015 Pneumococcal Conjugate Vacci ne, 20-valent ([id number]) 06/24/2024 Pneumococcal Polysaccharide PPV23 (Pneumovax) 02/16/2014,04/25/2008 RSV [...] No 06/24/2024 Does the household have a [facility] cent[facility] source of income? (Household - for ages [...] encounter Miscellaneous Notes * Telephone Encounter - Diego Diaz RT - 09/17/2024 4:19 PM EDT Left message for mri questions documented in this encounter Plan of Treatment Upcoming Encounters Date Type Department Care Team (Latest Contact Info) Description 09/19/2024 11:20 AM EDT Office Visit Family Practice [address], [place] 293 [place] [address] Pierre Hill, DO 293 [facility] [place] [place] [address] 09/20/2024 12:30 PM EDT Appointment Radiology, [address] [place] [id number] 09/21/2024 10:00 AM EDT Office Visit Dermatology [facility] [address] [place], [place] [address] Arianna Perez PA-C 200 [facility] [place] [address] 09/21/2024 12:40 PM EDT Laboratory Lab 65 [facility] [place] 293 [place] [address] [place], Lab [address] [place] [address], [place] [address] 09/22/2024 11:15 AM EDT Office Visit Orthopaedics [facility] [address] [place] [address] Sergio Thomas DO [address] [place] [address] 09/23/2024 3:00 PM EDT Telemedicine Orthopaedics Spine Surgery [facility] [address] [place] [address] Jarek Hough MD [address] [place] [address] 09/30/2024 1:00 PM EDT Office Visit Orthopaedics Spine Surgery [facility] [address] [place] [phone] Jarek Hough MD [address] [place] [address] 10/07/2024 10:30 AM EDT Office Visit Otolaryngology [facility] [address] [place] [address] Nanci Schwarz MD [address] [place] [address] Jovanna Salcedo Au.D. [address] [place] [address] 10/10/2024 1:20 PM EDT Hospital Encounter OR [facility], Operating Room, [facility] - 4th Floor [address] [place] [phone] Jarek Hough MD [address] [place] [address] 10/10/2024 1:20 PM EDT - 10/10/2024 3:29 PM EDT Surgery OR [facility], Operating Room, [facility] - 4th Floor [address] [place] [phone] Jarek Hough MD [address] [place] [address] THERMAL DESTRUCTION OF INTRAOSSEOUS BASIVERTEBRAL NERVE, INCLUDING ALL IMAGING GUIDANCE; FIRST 2 VERTEBRAL BODIES, LUMBAR OR SACRAL 10/14/2024 11:45 AM EDT Office Visit Cardiology, [facility] [address] [place] [phone] Leighann Lilly, DO [address] [place] [address] 10/21/2024 1:00 PM EDT Office Visit Orthopaedics Spine Surgery [facility] [address] [place] [address] Hallie Faria CRNP [address] [place] [address] 11/01/2024 10:00 AM EDT Office Visit Pharmacy, [facility] [address] [place] [address] Eliseo [facility] [address] [address] 11/10/2024 9:00 AM EDT Office Visit Pharmacy, [facility] [place] [address] Eliseo [facility] [place] [address] 11/10/2024 1:30 PM EDT Office Visit Orthopaedics [facility] [address] [place] [phone] Sergio Thomas, DO 132 [facility] [place] [address] 11/14/2024 11:30 AM EDT Telemedicine Psychology Miguel Ángel Hall [address] [place] [address] Kristi Marlow, [facility] [address] [place] [address] 02/13/2025 11:30 AM EDT Imaging Radiology [facility] [address] [place] [phone] Scheduled Procedures Name Priority Associated Diagnoses Date/Ti me THERMAL DESTRUCTION OF INTRAOSSEOUS BASIVERTEBRAL NERVE, INCLUDING ALL IMAGING GUIDANCE; FIRST 2 VERTEBRAL BODIES, LUMBAR OR SACRAL Lumbar spine pain Scoliosis of lumbar spine, unspecified scoliosis type Vertebrogenic low back pain 10/10/2024 1:20 PM EDT THERMAL DESTRUCTION OF INTRAOSSEOUS BASIVERTEBRAL NERVE, INCLUDING ALL IMAGING GUIDANCE; EACH ADD'L VERTEBRAL BODY, LUMBAR OR SACRAL Lumbar spine pain Scoliosis of lumbar spine, unspecified scoliosis type Vertebrogenic low back pain 10/10/2024 1:20 PM EDT Health Maintenance Due Date Last [...] of Attor diallo? No Care Teams Hand Cigar Making Supervisor Relationship Specialty Start Date End Date Pierre Hill DO [address] [place] [address] PCP - General Internal Medicine 06/24/24 documented as of this encounter
--- OUTSIDE RECORDS SUMMARY | 2024-09-29 17:38 | External Medical Summary | Summary of Care ---
Author Name Unknown Organization [facility] Address [address] [place] [address] Phone [phone] Care Team Providers Care Methods And Procedures Analyst Name Role Phone Pierre Hill DO Primary Care Provider [phone] Reason for Visit * Reason Onset Date Comments Appointment 09/22/2024 Encounter Details Date Type Department Care Team ([facility] Contact Info) Description 09/22/2024 Telephone Access Center, [address] *DO NOT REMOVE THIS DEPARTMENT* [place] [address] Services, Scheduling [address] [place] [address] Appointment Allergies Active Allergy Reactions Criticality Noted [...] as of this encounter (statuses as of 09/23/2024) Medications buPROPion HCl ER (XL) 300 MG [...] as of this encounter (statuses as of 09/23/2024) Active Problems Problem Noted Date Diagnosed Date [...] as of this encounter (statuses as of 09/23/2024) Resolved Problems Problem Noted Date Diagnosed Date [...] as of this encounter (statuses as of 09/23/2024) Immunizations Name Administration Dates Next Due COVID-19 mRNA, LNP-s, No Pre serve, 2-Dose Series (Proviation) 08/31/2022,08/30/2020,07/30/2020 COVID-19, MRNA-LNP, PF, 30 M CG/0.3 mL, 12 YRS AND ABOVE, IM (PFIZER-Comirnaty) 03/14/2024 Covid-19, Mrna, Lnp-s, Pf, B ivalent, 30 Mcg, IM, 12 yrs and above (Pfizer) 09/23/2022 Pneumococcal Conjugate Vacc, 13 Valent (Prevnar) 05/23/2015 Pneumococcal Conjugate Vacci ne, 20-valent ([id number]) 06/24/2024 Pneumococcal Polysaccharide PPV23 (Pneumovax) 02/16/2014,04/25/2008 RSV [...] encounter Miscellaneous Notes * Telephone Encounter - Anna Hutchinson OSA - 09/23/2024 8:26 AM EDT Pt is scheduled for 10/17/24 @ 3:30 pm. Called pt but couldn't leave a voicemail. Did send pt a [employer] message regarding the appt. * Telephone Encounter - Jeni Hadley OSA - 09/22/2024 3:54 PM EDT PT calling to make appt for her referral to see Dr. Ventura. Please advise [phone] documented in this encounter Plan of Treatment Upcoming Encounters Date Type Department Care Team (Latest Contact Info) Description 09/23/2024 1:45 PM EDT Laboratory Lab [address], [place] 293 [place] [address] [place], Lab [address] [place] [address] 293 [place] [address] 09/23/2024 3:00 PM EDT Telemedicine Orthopaedics Spine Surgery [facility] [address] [place] [address] Jarek Hough MD [address] [place] [id number] 09/26/2024 2:40 PM EDT Office Visit Family Practice [address] [place] [address] 293 [place] [address] Pierre Hill, 293 [facility] [place] [address] 09/30/2024 1:00 PM EDT Office Visit Orthopaedics Spine Surgery [facility] [address] [place] [phone] Jarek Hough MD [address] [place] [id number] 10/07/2024 10:30 AM EDT Office Visit Otolaryngology [facility] [address] [place] [address] Nanci Schwarz MD [address] [place] [address] Jovanna Salcedo Au.D. [address] [place] [address] 10/10/2024 11:45 AM EDT Imaging Radiology [address] [place] [address] 10/10/2024 12:40 PM EDT Hospital Encounter OR [facility], Operating Room, [facility] - 4th Floor [address] [place] [address] Jarek Hough MD 310 [place] [address] 10/10/2024 12:40 PM EDT - 10/10/2024 2:49 PM EDT Surgery OR [facility], Operating Room, [facility] - 4th Floor [address] [place] [address] Jarek Hough MD [address] [place] [address] THERMAL DESTRUCTION OF INTRAOSSEOUS BASIVERTEBRAL NERVE, INCLUDING ALL IMAGING GUIDANCE; FIRST 2 VERTEBRAL BODIES, LUMBAR OR SACRAL 10/14/2024 11:45 AM EDT Office Visit Cardiology, [facility] [address] [place] [address] Leighann Lilly, [address] [place] [address] 10/17/2024 3:30 PM EDT Office Visit Orthopaedics, Tyron Hernandez [address] [place] [address] Everardo Ventura MD [address] [place] [address] 10/21/2024 1:00 PM EDT Office Visit Orthopaedics Spine Surgery [facility] [address] [place] [phone] Hallie Faria CRNP [address] [place] [phone] 11/01/2024 10:00 AM EDT Office Visit Pharmacy, [facility] [address] [facility] [address] [facility] [address] [place] [address] 11/10/2024 9:00 AM EDT Office Visit Pharmacy, [facility] [address] [facility] [place] [address] [facility] [address] [place] [address] 11/10/2024 1:30 PM EDT Office Visit Orthopaedics [facility] [address] [place] [address] Sergio Thomas, [address] [place] [address] 11/14/2024 11:30 AM EDT Telemedicine Psychology Miguel Ángel Hall [address] [place] [address] Kristi Marlow, [facility] [address] [place] [address] 02/13/2025 11:30 AM EDT Imaging Radiology [facility] [address] [facility] [place] [address] 04/25/2025 10:00 AM EST Office Visit Dermatology [facility] [address] [place] [address] Michael Tamayo MD [address] [place] [address] Scheduled Procedures Name Priority Associated Diagnoses Date/Ti [...] Power of Attor diallo? No Care Teams Methods And Procedures Analyst Relationship Specialty Start Date End Date Pierre Hill DO [address] [place] [address] PCP - General Internal Medicine 06/24/24 documented as of this encounter
--- OUTSIDE RECORDS SUMMARY | 2024-09-29 17:38 | External Medical Summary | Summary of Care ---
Author Name Unknown Organization [facility] Address [address] [place] [address] Phone [phone] Care Team Providers Care Supervisor Tank Storage Name Role Phone Pierre Hill DO Primary Care Provider [phone] Reason for Visit * Reason Comments Follow Up Lumbar Encounter Details Date Type Department Care Team (Late st Contact Info) Description 09/23/2024 3:00 PM EDT Telemedicine Orthopaedics Spine Surgery [facility] [address] [place] [address] Jarek Hough MD [address] [facility] [place] [address] Lumbar spine pain*; Vertebrogenic low back pain; Scoliosis of lumbar spine, unspecified scoliosis type; Spinal stenosis of lumbar region, unspecified whether neurogenic claudication present Allergies Active Allergy Reactions Criticality Noted Date [...] mRNA, LNP-s, No Pre serve, 2-Dose Series (BUYSTAND) 08/31/2022,08/30/2020,07/30/2020 COVID-19, MRNA-LNP, PF, 30 M CG/0.3 mL, 12 YRS AND ABOVE, IM (Rated People-ComirnatSalient Pharmaceuticals) 03/14/2024 Covid-19, Mrna, Lnp-s, Pf, B ivalent, 30 Mcg, IM, 12 yrs and above (BUYSTAND) 09/23/2022 Pneumococcal Conjugate Vacc, 13 Valent (Prevnar) 05/23/2015 Pneumococcal Conjugate Vacci ne, 20-valent ([id number]) 06/24/2024 Pneumococcal Polysaccharide PPV23 (Pneumovax) 02/16/2014,04/25/2008 RSV [...] Author No 03/07/2024 3:06 PM EDT Kiki Lagn RN * Because of a physical, mental, [...] Progress Notes * Jarek Hough MD - 09/23/2024 1:13 PM EDT As per patient preference, connection with the [...] the same has been conveyed that the data input clerk. Radiological imaging: I independently reviewed the relevant [...] and wants to proceed with the intervention. documented in this encounter Nursing Notes * Yadi Szymanski LPN - 09/23/2024 12:51 PM EDT F/U Lumbar back pain, radiculopathy L3-4, L4-5 possible L5-S1 basivertebral nerve ablation and related procedures as indicated intraoperatively 10/10/2024 MRI not completed Morphine PT for back was helping and knee 07/28/2024 stopped d/t pain of knee Pain management last injection was years ago in [facility] not recent . documented in this encounter Plan of Treatment Upcoming Encounters Date Type Department Care Team (Latest Contact Info) Description 09/26/2024 2:40 PM EDT Office Visit Family Practice [address] [facility] [place] 293 [place] [address] Pierre Hill DO 293 [facility] [address] 09/30/2024 1:00 PM EDT Office Visit Orthopaedics Spine Surgery [facility] [address] [place] [address] Jarek Hough MD [address] [place] [address] 10/07/2024 10:30 AM EDT Office Visit Otolaryngology [facility] [address] [place] [address] Nanci Schwarz MD [address] [place] [address] Jovanna Salcedo Au.D. [address] [place] [address] 10/10/2024 11:45 AM EDT Imaging Radiology [address] [place] [address] 10/10/2024 12:40 PM EDT Hospital Encounter OR [facility], Operating Room, [facility] Floor [address] [place] [address] Jarek Hough MD [address] [place] [address] 10/10/2024 12:40 PM EDT - 10/10/2024 2:49 PM EDT Surgery OR [facility], Operating Room, [facility] Floor [address] [place] [address] Jarek Hough MD [address] [place] [address] THERMAL DESTRUCTION OF INTRAOSSEOUS BASIVERTEBRAL NERVE, INCLUDING ALL IMAGING GUIDANCE; FIRST 2 VERTEBRAL BODIES, LUMBAR OR SACRAL 10/14/2024 11:45 AM EDT Office Visit Cardiology, [facility] [address] [place] [phone] Leighann Lilly, DO [address] [place] [address] 10/17/2024 3:30 PM EDT Office Visit Orthopaedics, [facility] [address] [place] [address] [place] [address] Everardo Ventura MD [address] [place] [phone] 10/21/2024 1:00 PM EDT Office Visit Orthopaedics Spine Surgery [facility] [address] [place] [phone] Hallie Faria CRNP [address] [place] [address] 11/01/2024 10:00 AM EDT Office Visit Pharmacy, [facility] [address] [place] [address] [facility] [address] [place], [place] [address] 11/10/2024 9:00 AM EDT Office Visit Pharmacy, [facility] [address] [place] [address] [facility] [address] [place], [place] [address] 11/10/2024 1:30 PM EDT Office Visit Orthopaedics [facility] [address] [place] [phone] Sergio Thomas, DO [address] [place] [phone] 11/14/2024 11:30 AM EDT Telemedicine Psychology Miguel Ángel Hall [address] [place] [address] Kristi Marlow, BRAKE RELINER [address] [place] [address] 02/13/2025 11:30 AM EDT Imaging Radiology [facility] [address] [place] [address] 04/25/2025 10:00 AM EST Office Visit Dermatology [facility] 200 [facility] [place] [address] Michael Tamayo MD [address] [place] [address] Scheduled Procedures Name Priority Associated Diagnoses Date/Ti [...] (and kyphoscoliosis), idiopathic Vertebrogenic low back pain Lumbar spine pain- Primary Lumbago Vertebrogenic low back pain Scoliosis of lumbar spine, unspecified scoliosis type Spinal stenosis of lumbar region, unspecified whether neurogenic claudication present Lumbar spine pain Lumbago Scoliosis of lumbar [...] Power of Attor diallo? No Care Teams Supervisor Tank Storage Relationship Specialty Start Date End Date Pierre Hill DO [address] [facility] [place] [address] PCP - General Internal Medicine 06/24/24 documented as of this encounter
--- OUTSIDE RECORDS SUMMARY | 2024-09-29 17:38 | External Medical Summary | Summary of Care ---
Author Name Unknown Organization [facility] Address [address] [place] [address] Phone [phone] Care Team Providers Care Head Banquet Waiter/Waitress Name Role Phone Pierre Hill DO Primary Care Provider [phone] Reason for Visit * Reason Onset Date Comments Appointment 09/22/2024 Encounter Details Date Type Department Care Team ([facility] Contact Info) Description 09/22/2024 Telephone Access Center, [address] *DO NOT REMOVE THIS DEPARTMENT* [place] [address] Services, Scheduling [address] [place] [address] Appointment Allergies Active Allergy Reactions Criticality Noted [...] mRNA, LNP-s, No Pre serve, 2-Dose Series (GT Nexus) 08/31/2022,08/30/2020,07/30/2020 COVID-19, MRNA-LNP, PF, 30 M CG/0.3 mL, 12 YRS AND ABOVE, IM (PFIZER-Comirnaty) 03/14/2024 Covid-19, Mrna, Lnp-s, Pf, B ivalent, 30 Mcg, IM, 12 yrs and above (Pfizer) 09/23/2022 Pneumococcal Conjugate Vacc, 13 Valent (Prevnar) 05/23/2015 Pneumococcal Conjugate Vacci ne, 20-valent ([id number]) 06/24/2024 Pneumococcal Polysaccharide PPV23 (Pneumovax) 02/16/2014,04/25/2008 RSV [...] referral to see Dr. Ventura. Please advise [phone] documented in this encounter Plan of Treatment Upcoming Encounters Date Type Department Care Team (Latest Contact Info) Description 09/23/2024 1:45 PM EDT Laboratory Lab 65 [facility] 293 [facility] [address] [place], [address], [place] [address] 09/23/2024 3:00 PM EDT Telemedicine Orthopaedics Spine Surgery [facility] [address] [place] [phone] Jarek Hough MD [address] [place] [address] 09/26/2024 2:40 PM EDT Office Visit Family Practice [address] [place] 293 [place] [address] Pierre Hill, 293 [facility] [place] [address] 09/30/2024 1:00 PM EDT Office Visit Orthopaedics Spine Surgery [facility] [address] [place] [phone] Jarek Hough MD [address] [place] [address] 10/07/2024 10:30 AM EDT Office Visit Otolaryngology [facility] [address] [place] [address] Nanci Schwarz MD [address] [place] [address] Jovanna Salcedo Au.D. [address] [place] [address] 10/10/2024 11:45 AM EDT Imaging Radiology [facility] [address] [place] [address] 10/10/2024 12:40 PM EDT Hospital Encounter OR [facility], [facility], [facility] [address] [place] [phone] Jarek Hough MD [address] [place] [address] 10/10/2024 12:40 PM EDT - 10/10/2024 2:49 PM EDT Surgery OR [facility], Operating Room, [facility] - 4th Floor [address] [place] [phone] Jarek Hough MD [address] [place] [address] THERMAL DESTRUCTION OF INTRAOSSEOUS BASIVERTEBRAL NERVE, INCLUDING ALL IMAGING GUIDANCE; FIRST 2 VERTEBRAL BODIES, LUMBAR OR SACRAL 10/14/2024 11:45 AM EDT Office Visit Cardiology, [facility] [address] [place] [phone] Leighann Lilly, DO [address] [place] [address] 10/21/2024 1:00 PM EDT Office Visit Orthopaedics Spine Surgery [facility] [address] [place] [phone] Hallie Faria CRNP [address] [place] [phone] 11/01/2024 10:00 AM EDT Office Visit Pharmacy, [facility] [address] [place] [address] [facility] [address] [place] [address] 11/10/2024 9:00 AM EDT Office Visit Pharmacy, [facility] [address] [place] [address] [facility] [address] [place] [address] 11/10/2024 1:30 PM EDT Office Visit Orthopaedics [facility] [address] [place] [phone] Sergio Thomas, DO [address] [place] [address] 11/14/2024 11:30 AM EDT Telemedicine Psychology Maico Bazzi, Miguel Ángel [address] [place] [address] Kristi Marlow, J2EE ENGINEER [address] [place] [address] 02/13/2025 11:30 AM EDT Imaging Radiology [facility] [address] [place] [phone] 04/25/2025 10:00 AM EST Office Visit Dermatology [facility] [address] [place] [address] Michael Tamayo MD [address] [place] [address] Scheduled Procedures Name Priority Associated Diagnoses Date/Ti [...] Power of Attor diallo? No Care Teams Head Banquet Waiter/Waitress Relationship Specialty Start Date End Date Pierre Hill DO [address] [place] [address] PCP - General Internal Medicine 06/24/24 documented as of this encounter
--- OUTSIDE RECORDS SUMMARY | 2024-09-29 17:38 | External Medical Summary | Summary of Care ---
Author Name Unknown Organization [facility] Address [address] [place] [address] Phone [phone] Care Team Providers Care Blender Laborer Name Role Phone Mitchell Hill DO Primary Care Provider Reason for Visit * Reason Comments Medication Refill Encounter Details Date Type Department Care Team (Late st Contact Info) Description 09/19/2024 Refill Family Practice [address], [place] [address] [place] [address] Mitchell Hill DO [address] [place], [place] [id number] Episode of recurrent major depressive disorder, unspecified [...] as of this encounter (statuses as of 09/20/2024) Medications buPROPion HCl ER (XL) 300 MG [...] morning. 90 Tablet 2 09/20/19 25 Active buPROPion HCl ER (XL) 150 MG Oral Tablet Extended Release 24 Hour (Wellbutrin XL)Indications:Epi sode of recurrent major depressive disorder, unspecified depression episode severity (HCC) Take 1 Tablet by mouth in the morning. 90 Tablet 3 06/03/19 25 025 Discontin ued(Refil l) documented as of this encounter (statuses as of 09/20/2024) Active Problems Problem Noted Date Diagnosed Date [...] as of this encounter (statuses as of 09/20/2024) Resolved Problems Problem Noted Date Diagnosed Date [...] as of this encounter (statuses as of 09/20/2024) Immunizations Name Administration Dates Next Due COVID-19 mRNA, LNP-s, No Pre serve, 2-Dose Series ([employer]) 08/31/2022,08/30/2020,07/30/2020 COVID-19, MRNA-LNP, PF, 30 M CG/0.3 mL, 12 YRS AND ABOVE, IM ([employer]) 03/14/2024 Covid-19, Mrna, Lnp-s, Pf, B ivalent, 30 Mcg, IM, 12 yrs and above (Pfizer) 09/23/2022 Pneumococcal Conjugate Vacc, 13 Valent (Prevnar) 05/23/2015 Pneumococcal Conjugate Vacci ne, 20-valent ([id number]) 06/24/2024 Pneumococcal Polysaccharide PPV23 (Pneumovax) 02/16/2014,04/25/2008 RSV [...] encounter Miscellaneous Notes * Telephone Encounter - Lesli Krishnan [facility] - 09/19/2024 8:29 PM EDTSigned Prescriptions: Disp Refills buPROPion HCl ER (XL) 150 MG Oral Tablet E*90 Tab*2 Sig: Take 1 Tablet by mouth in the morning. Authorizing Provider: MITCHELL HILL Ordering User: LESLI KRISHNAN * Telephone Encounter - Emani Macias CPhT - 09/19/2024 4:23 PM EDT Please reroute Rx to [facility]. Pending Prescriptions: Disp Refills buPROPion HCl ER (XL) 150 MG Oral Tablet *90 Tab*2 Sig: Take 1 Tablet by mouth in the morning. Last Visit: 08/01/2024 (in office), 08/08/2024 (telemedicine) 09/26/2024 If no future appointments scheduled, and last appointment is greater than a year ago, please schedule patient for a follow-up appointment Last date the medication was ordered: 06/03/24 Patient Phone Numbers Labs: Lab Results Component [...] Department Care Team (Latest Contact Info) Description 09/21/2024 10:00 AM EDT Office Visit Dermatology Yanelis [facility] [place] [address] [place] [address] Arianna Perez PA-C [address] [place] [address] 09/21/2024 12:40 PM EDT Laboratory Lab 65 [facility] [address] Raud[address] [place] [address] [place] [address] 09/22/2024 11:15 AM EDT Office Visit Orthopaedics [facility] [address] [place] [phone] Sergio Thomas, DO [address] [place] [address] 09/23/2024 3:00 PM EDT Telemedicine Orthopaedics Spine Surgery [facility] [address] [place] [address] Jarek Hough MD [address] [place] [address] 09/26/2024 2:40 PM EDT Office Visit Family Practice [address] [place] [address] 293 [place] [address] Mitchell Hill, DO 293 [facility] [place] [address] 09/30/2024 1:00 PM EDT Office Visit Orthopaedics Spine Surgery [facility] [address] [place] [phone] Jarek Hough MD [address] [id number] 10/07/2024 10:30 AM EDT Office Visit Otolaryngology [facility] [address] [place] [address] Nanci Schwarz MD [address] [place] [address] Jovanna Salcedo Au.D. [address] [place] [address] 10/10/2024 11:45 AM EDT Imaging Radiology [facility] [address] [place] [phone] 10/10/2024 1:20 PM EDT Hospital Encounter OR [facility], Operating Room, [facility] - 4th Floor [address] [place] [phone] Jarek Hough MD [address] [place] [address] 10/10/2024 1:20 PM EDT - 10/10/2024 3:29 PM EDT Surgery OR [facility], Operating Room, [facility] - 4th Floor [address] [place] [address] Jarek Hough MD [address] [place] [address] THERMAL DESTRUCTION OF INTRAOSSEOUS BASIVERTEBRAL NERVE, INCLUDING ALL IMAGING GUIDANCE; FIRST 2 VERTEBRAL BODIES, LUMBAR OR SACRAL 10/14/2024 11:45 AM EDT Office Visit Cardiology, [facility] [address] [place] [phone] Leighann Lilly, DO [address] [place] [address] 10/21/2024 1:00 PM EDT Office Visit Orthopaedics Spine Surgery [facility] [address] [place] [phone] Hallie Faria CRNP [address] [place] [phone] 11/01/2024 10:00 AM EDT Office Visit Pharmacy, [facility] [address] [place] [address] [facility] [address] [place] [address] 11/10/2024 9:00 AM EDT Office Visit Pharmacy, [facility] [address] [place] [address] [facility] [address] [place], [place] [address] 11/10/2024 1:30 PM EDT Office Visit Orthopaedics [facility] [address] [place] [phone] Sergio Thomas, [address] [place] [phone] 11/14/2024 11:30 AM EDT Telemedicine Psychology Miguel Ángel Hall [address] [place] [address] Kristi Marlow, [facility] [address] [place] [address] 02/13/2025 11:30 AM EDT Imaging Radiology [facility] [address] [place] [place] [phone] Scheduled Procedures Name Priority Associated Diagnoses Date/Ti [...] (and kyphoscoliosis), idiopathic Vertebrogenic low back pain Episode of recurrent major depressive disorder, unspecified [...] Power of Attor diallo? No Care Teams Blender Laborer Relationship Specialty Start Date End Date Mitchell Hill DO [address] [facility] [place] [address] PCP - General Internal Medicine 06/24/24 documented as of this encounter
--- OUTSIDE RECORDS SUMMARY | 2024-09-29 17:38 | External Medical Summary | Summary of Care ---
Author Name Unknown Organization [facility] Address [address] [place] [address] Phone [phone] Care Team Providers Care Planner/Scheduler Name Role Phone Pierre Hill DO Primary Care Provider [phone] Reason for Visit * Reason Comments Follow Up Lumbar Encounter Details Date Type Department Care Team (Late st Contact Info) Description 09/23/2024 3:00 PM EDT Telemedicine Orthopaedics Spine Surgery [facility] [address] [place] [address] Jarek Hough MD [address] [facility] [place] [address] Lumbar spine [...] mRNA, LNP-s, No Pre serve, 2-Dose Series (Personal) 08/31/2022,08/30/2020,07/30/2020 COVID-19, MRNA-LNP, PF, 30 M CG/0.3 mL, 12 YRS AND ABOVE, IM ([employer]irnatLoSo) 03/14/2024 Covid-19, Mrna, Lnp-s, Pf, B ivalent, 30 Mcg, IM, 12 yrs and above (Personal) 09/23/2022 Pneumococcal Conjugate Vacc, 13 Valent (Prevnar) 05/23/2015 Pneumococcal Conjugate Vacci ne, 20-valent ([id number]) 06/24/2024 Pneumococcal Polysaccharide PPV23 (Pneumovax) 02/16/2014,04/25/2008 RSV [...] same has been conveyed that the surgical scrub technologist. Radiological imaging: I independently reviewed the relevant [...] management last injection was years ago in [facility] not recent . documented in this encounter Plan of Treatment Upcoming Encounters Date Type Department Care Team (Latest Contact Info) Description 09/26/2024 2:40 PM EDT Office Visit Family Practice 65 [facility] [place] 293 [place] [address] Peirre Hill DO 293 [facility] [address] 09/30/2024 1:00 PM EDT Office Visit Orthopaedics Spine Surgery [facility] [address] [place] [address] Jarek Hough MD [address] [place] [address] 10/07/2024 10:30 AM EDT Office Visit Otolaryngology [facility] [address] [place] [address] Nanci Schwarz MD [address] [place] [address] Jovanna Salcedo Au.D. [address] [place] [address] 10/10/2024 11:45 AM EDT Imaging Radiology [address] [place] [address] 10/10/2024 12:40 PM EDT Hospital Encounter OR [facility], Operating Room, [facility] Floor [address] [place] [address] Jarek Hough MD [address] [place] [address] 10/10/2024 12:40 PM EDT - 10/10/2024 2:49 PM EDT Surgery OR [facility], Operating Room, [facility] Floor [address] [place] [address] Jarek Hough MD [address] [place] [address] THERMAL DESTRUCTION OF INTRAOSSEOUS BASIVERTEBRAL NERVE, INCLUDING ALL IMAGING GUIDANCE; FIRST 2 VERTEBRAL BODIES, LUMBAR OR SACRAL 10/14/2024 11:45 AM EDT Office Visit Cardiology, [facility] [address] [place] [phone] Leighann Lilly, DO [address] [place] [address] 10/17/2024 3:30 PM EDT Office Visit Orthopaedics, [place] [address] [place] [address] [place] [address] Everardo Ventura MD [address] [place] [phone] 10/21/2024 1:00 PM EDT Office Visit Orthopaedics Spine Surgery [facility] [address] [place] [phone] Hallie Faria CRNP [address] [place] [phone] 11/01/2024 10:00 AM EDT Office Visit Pharmacy, [facility] [address] [place] [address] [facility] [address] [place], [place] [address] 11/10/2024 9:00 AM EDT Office Visit Pharmacy, [facility] [address] [place] [address] [facility] [address] [place], [place] [address] 11/10/2024 1:30 PM EDT Office Visit Orthopaedics [facility] [address] [place] [phone] Sergio Thomas, DO [address] [place] [phone] 11/14/2024 11:30 AM EDT Telemedicine Psychology Miguel Ángel Hall 9 [place] [address] Kristi Marlow, MACHINE DESIGN ENGINEER [address] [place] [address] 02/13/2025 11:30 AM EDT Imaging Radiology [facility] [address] [place] [address] 04/25/2025 10:00 AM EST Office Visit Dermatology [facility] 200 [facility] [place] [address] Michael Tamayo MD [address] [place] [address] Scheduled Procedures Name Priority Associated Diagnoses Date/Ti [...] Power of Attor diallo? No Care Teams Planner/Scheduler Relationship Specialty Start Date End Date Pierre Hill DO [address] [facility] [address] PCP - General Internal Medicine 06/24/24 documented as of this encounter
--- OUTSIDE RECORDS SUMMARY | 2024-09-29 17:39 | External Medical Summary | Summary of Care ---
Author Name Unknown Organization [facility] Address [address] [place] [address] Phone [phone] Care Team Providers Care Simulation Specialist Name Role Phone Pierre Hill DO Primary Care Provider [phone] Reason for Visit * Reason Onset Date Comments Emergency Department Follow-Up 09/07/2024 Encounter Details Date Type Department Care Team (Late st Contact Info) Description 09/07/2024 1:30 PM EDT Scheduled Telephone Family Practice [address], [place] [address] [place] [address] Marlene Manning RN [address] [place], [place] [phone] Allergies Active Allergy Reactions Criticality Noted Date [...] as of this encounter (statuses as of 09/12/2024) Medications buPROPion HCl ER (XL) 300 MG [...] as of this encounter (statuses as of 09/12/2024) Active Problems Problem Noted Date Diagnosed Date [...] as of this encounter (statuses as of 09/12/2024) Resolved Problems Problem Noted Date Diagnosed Date [...] as of this encounter (statuses as of 09/12/2024) Immunizations Name Administration Dates Next Due COVID-19 mRNA, LNP-s, No Pre serve, 2-Dose Series ([employer]) 08/31/2022,08/30/2020,07/30/2020 COVID-19, MRNA-LNP, PF, 30 M CG/0.3 mL, 12 YRS AND ABOVE, IM ([facility]) 03/14/2024 Covid-19, Mrna, Lnp-s, Pf, B ivalent, 30 Mcg, IM, 12 yrs and above (Pfizer) 09/23/2022 Pneumococcal Conjugate Vacc, 13 Valent (Prevnar) 05/23/2015 Pneumococcal Conjugate Vacci ne, 20-valent ([id number]) 06/24/2024 Pneumococcal Polysaccharide PPV23 (Pneumovax) 02/16/2014,04/25/2008 RSV [...] encounter Miscellaneous Notes * Telephone Encounter - Marlene Manning RN - 09/12/2024 8:53 AM EDT Third attempt to call for fall follow up. LVM requesting call back. Has follow up here on 09/19/24 * Telephone Encounter - Marlene Manning RN - 09/09/2024 9:49 AM EDT LVM x 2 requesting call back [phone] Next PCP follow up is 09/19/24 however if she calls office she could be offered a sooner appt given recent fall with headaches. * Telephone Encounter - Marlene Manning RN - 09/07/2024 1:41 PM EDT LVM x 1 requesting call back to discuss recent fall and S/P ED util. [phone] documented in this encounter Plan of Treatment Upcoming Encounters Date Type Department Care Team (Latest Contact Info) Description 09/13/2024 12:00 PM EDT Laboratory Laboratory, R[facility]al Bazzi 226 [facility] [place] [phone] [facility] [address] [place] [address] 09/14/2024 9:00 AM EDT Office Visit Pharmacy, [facility] 132 [facility] [place] [address] [facility] [place] [address] 09/15/2024 12:40 PM EDT Laboratory Lab 65 [facility] [address], [place] [address] 09/19/2024 11:20 AM EDT Office Visit Family Practice 65 [facility] 293 [facility], [place] [address] Pierre Hill, 293 [facility], [place] [address] 09/20/2024 12:30 PM EDT Appointment Radiology, [address] [place] [address] 09/21/2024 10:00 AM EDT Office Visit Dermatology [facility] [place] 200 [place] [address] Arianna Perez PA-C [address] [place] [address] 09/22/2024 11:15 AM EDT Office Visit Orthopaedics [facility] [address] [place] [phone] Sergio Thomas DO [address] [place] [address] 09/23/2024 3:00 PM EDT Telemedicine Orthopaedics Spine Surgery [facility] [address] [place] [phone] Jarek Hough MD 310 [facility] [place] [phone] 09/30/2024 1:00 PM EDT Office Visit Orthopaedics Spine Surgery [facility] [address] [place] [phone] Jarek Hough MD [address] [facility] [address] 10/07/2024 10:30 AM EDT Office Visit Otolaryngology [facility] [address] [place] [address] Nanci Schwarz MD [address] [place] [address] Jovanna Salcedo Au.D. [address] [place] [address] 10/10/2024 1:20 PM EDT Hospital Encounter OR [facility], Operating Room, [facility] - 4[facility] Floor [address] [place] [address] Jarek Hough MD [address] [place] [address] 10/10/2024 1:20 PM EDT - 10/10/2024 3:29 PM EDT Surgery OR [facility], Operating Room, [facility] - 4th Floor [address] [place] [address] Jarek Hough MD [address] [place] [address] THERMAL DESTRUCTION OF INTRAOSSEOUS BASIVERTEBRAL NERVE, INCLUDING ALL IMAGING GUIDANCE; FIRST 2 VERTEBRAL BODIES, LUMBAR OR SACRAL 10/14/2024 11:45 AM EDT Office Visit Cardiology, [facility] [address] [place] [phone] Leighann Lilly, DO [address] [place] [address] 10/21/2024 1:00 PM EDT Office Visit Orthopaedics Spine Surgery [facility] [address] [place] [phone] Hallie Faria CRNP [address] [place] [address] 11/01/2024 10:00 AM EDT Office Visit Pharmacy, [facility] [address] [place] [address] [facility] [address] [place] [address] 11/10/2024 1:30 PM EDT Office Visit Orthopaedics [facility] [address] [place] [phone] Sergio Thomas, DO [address] [place] [address] 11/14/2024 11:30 AM EDT Telemedicine Psychology Maico BazziMiguel Ángel [address] [place] [address] Princessangbrandi Ching, FOOD SERVICE UTILITY WORKER [address] [place] Miguel [place] [address] 02/13/2025 11:30 AM EDT Imaging Radiology [facility] [address] [place] [address] Scheduled Procedures Name Priority Associated Diagnoses Date/Ti [...] Power of Attor diallo? No Care Teams Simulation Specialist Relationship Specialty Start Date End Date Pierre Hill DO 293 [place] [address] PCP - General Internal Medicine 06/24/24 documented as of this encounter
--- OUTSIDE RECORDS SUMMARY | 2024-09-29 17:39 | External Medical Summary | Summary of Care ---
Author Name Unknown Organization [facility] Address [address] [place] [address] Phone [phone] Care Team Providers Care Fence Post Driver Name Role Phone Pierre Hill DO Primary Care Provider [phone] Reason for Visit * Reason Onset Date Comments Emergency Department Follow-Up 09/07/2024 Encounter Details Date Type Department Care Team (Late st Contact Info) Description 09/07/2024 1:30 PM EDT Scheduled Telephone Family Practice [address], [place] [address] [place] [address] Marlene Manning RN [address] [place], [place] [phone] Allergies Active Allergy Reactions Criticality Noted Date [...] as of this encounter (statuses as of 09/09/2024) Medications buPROPion HCl ER (XL) 300 MG [...] as of this encounter (statuses as of 09/09/2024) Active Problems Problem Noted Date Diagnosed Date [...] as of this encounter (statuses as of 09/09/2024) Resolved Problems Problem Noted Date Diagnosed Date [...] as of this encounter (statuses as of 09/09/2024) Immunizations Name Administration Dates Next Due COVID-19 mRNA, LNP-s, No Pre serve, 2-Dose Series ([employer]us [employer]dos) 08/31/2022,08/30/2020,07/30/2020 COVID-19, MRNA-LNP, PF, 30 M CG/0.3 mL, 12 YRS AND ABOVE, IM ([facility]) 03/14/2024 Covid-19, Mrna, Lnp-s, Pf, B ivalent, 30 Mcg, IM, 12 yrs and above (Pfizer) 09/23/2022 Pneumococcal Conjugate Vacc, 13 Valent (Prevnar) 05/23/2015 Pneumococcal Conjugate Vacci ne, 20-valent ([id number]) 06/24/2024 Pneumococcal Polysaccharide PPV23 (Pneumovax) 02/16/2014,04/25/2008 RSV [...] EDT LVM x 2 requesting call back [phone] Next PCP follow up is 09/19/24 however if she calls office she could be offered a sooner appt given recent fall with headaches. * Telephone Encounter - Marlene Manning RN - 09/07/2024 1:41 PM EDT LVM x 1 requesting call back to discuss recent fall and S/P ED util. [phone] documented in this encounter Plan of Treatment Upcoming Encounters Date Type Department Care Team (Latest Contact Info) Description 09/13/2024 12:00 PM EDT Laboratory Laboratory, Racheal Bazzi [address] [place] [address] [facility] [address] [place] [address] 09/14/2024 9:00 AM EDT Office Visit Pharmacy, [facility] 132 [facility] [place] [address] Eliseo [facility] 132 [facility] [place] [address] 09/19/2024 11:20 AM EDT Office Visit Family Practice [address] [place] [address] [facility] [address] Pierre Hill DO 293 [facility] [address] 09/20/2024 12:30 PM EDT Appointment Radiology, [address] [place] [address] 09/22/2024 11:15 AM EDT Office Visit Orthopaedics [facility] [address] [place] [phone] Sergio Thomas DO [address] [place] [address] 09/23/2024 3:00 PM EDT Telemedicine Orthopaedics Spine Surgery [facility] [address] [place] [phone] Jarek Hough MD [address] [place] [address] [place] [address] 09/30/2024 1:00 PM EDT Office Visit Orthopaedics Spine Surgery [facility] [address] [place] [address] Jarek Hough MD [address] [place] [address] 10/07/2024 10:30 AM EDT Office Visit Otolaryngology [facility] [address] [place] [address] Nanci Schwarz MD [address] [place] [address] Jovanna Salcedo Au.D. [address] [place] [address] 10/10/2024 1:20 PM EDT Hospital Encounter OR [facility], Operating Room, [facility] - 4th Floor [address] [place] [address] Jarek Hough MD [address] [place] [address] 10/10/2024 1:20 PM EDT - 10/10/2024 3:29 PM EDT Surgery OR [facility], Operating Room, [facility] - 4th Floor [address] [place] [address] Jarek Hough MD [address] [place] [address] THERMAL DESTRUCTION OF INTRAOSSEOUS BASIVERTEBRAL NERVE, INCLUDING ALL IMAGING GUIDANCE; FIRST 2 VERTEBRAL BODIES, LUMBAR OR SACRAL 10/14/2024 11:45 AM EDT Office Visit Cardiology, [facility] [address] [place] [phone] Leighann Lilly DO [address] [place] [address] 10/21/2024 1:00 PM EDT Office Visit Orthopaedics Spine Surgery [facility] [address] [place] [phone] Hallie Faria CRNP 310 [facility] [place] [address] 11/01/2024 10:00 AM EDT Office Visit Pharmacy, [facility] [place] [address] [facility] [address] [place] [address] 11/10/2024 1:30 PM EDT Office Visit Orthopaedics [facility] [address] [place] [phone] Sergio Thomas, DO [address] [place] [address] 11/14/2024 11:30 AM EDT Telemedicine Psychology [place] [address] [place] [address] Kristi Marlow, [facility] [address] [place] [address] 12/16/2024 10:20 AM EDT Office Visit Dermatology Yanelis Garcia [place] 200 [address] [place] [address] Arianna Perez PA-C [address] [place] [address] 02/13/2025 11:30 AM EDT Imaging Radiology [facility] [address] [place] [phone] Scheduled Procedures Name Priority Associated Diagnoses Date/Ti [...] Power of Attor diallo? No Care Teams Fence Post Driver Relationship Specialty Start Date End Date Pierre Hill DO 293 [place] [address] PCP - General Internal Medicine 06/24/24 documented as of this encounter
--- OUTSIDE RECORDS SUMMARY | 2024-09-29 17:39 | External Medical Summary | Summary of Care ---
Author Name Unknown Organization [facility] Address [address] [place] [address] Phone [phone] Care Team Providers Care Human Resources Benefits Coordinator Name Role Phone Pierre Hill DO Primary Care Provider [phone] Reason for Visit * Reason Onset Date Comments Emergency Department Follow-Up 09/07/2024 Encounter Details Date Type Department Care Team (Late st Contact Info) Description 09/07/2024 1:30 PM EDT Scheduled Telephone Family Practice [address], [place] [address] [place] [address] Marlene Manning RN [address] [place], [place] [id number] Allergies Active Allergy Reactions Criticality Noted Date [...] as of this encounter (statuses as of 09/07/2024) Medications buPROPion HCl ER (XL) 300 MG [...] as of this encounter (statuses as of 09/07/2024) Active Problems Problem Noted Date Diagnosed Date [...] as of this encounter (statuses as of 09/07/2024) Resolved Problems Problem Noted Date Diagnosed Date [...] as of this encounter (statuses as of 09/07/2024) Immunizations Name Administration Dates Next Due COVID-19 mRNA, LNP-s, No Pre serve, 2-Dose Series (Naartjie) 08/31/2022,08/30/2020,07/30/2020 COVID-19, MRNA-LNP, PF, 30 M CG/0.3 mL, 12 YRS AND ABOVE, IM ([facility]) 03/14/2024 Covid-19, Mrna, Lnp-s, Pf, B ivalent, 30 Mcg, IM, 12 yrs and above (Pfizer) 09/23/2022 Pneumococcal Conjugate Vacc, 13 Valent (Prevnar) 05/23/2015 Pneumococcal Conjugate Vacci ne, 20-valent ([id number]) 06/24/2024 Pneumococcal Polysaccharide PPV23 (Pneumovax) 02/16/2014,04/25/2008 RSV [...] discuss recent fall and S/P ED util. [phone] documented in this encounter Plan of Treatment Upcoming Encounters Date Type Department Care Team (Latest Contact Info) Description 09/08/2024 12:30 PM EDT Office Visit Orthopaedics [facility] [address] [place] [phone] Sergio Thomas, [address] [place] [address] 09/13/2024 12:00 PM EDT Laboratory Laboratory, Racheal Bazzi [address] [place] [phone] [place], Laboratory [address] [place] [address] 09/19/2024 11:20 AM EDT Office Visit Family Practice [facility], [place] [address] [facility] [place] [address] Pierre Hill, DO [address] [facility], [place] [address] 09/20/2024 12:30 PM EDT Appointment Radiology, [address] [address] 09/22/2024 11:15 AM EDT Office Visit Orthopaedics [facility] [address] [place] [phone] Sergio Thomas, [address] [place] [address] 09/23/2024 3:00 PM EDT Telemedicine Orthopaedics Spine Surgery [facility] [address] [place] [phone] Jarek Hough MD [address] [facility] [address] 09/30/2024 1:00 PM EDT Office Visit Orthopaedics Spine Surgery [facility] [address] [place] [phone] Jarek Hough MD [address] [facility] [place] [address] 10/07/2024 10:30 AM EDT Office Visit Otolaryngology [facility] [address] [place] [address] Nanci Schwarz MD [address] [place] [address] Jovanna Salcedo Au.D. [address] [place] [address] 10/10/2024 1:20 PM EDT Hospital Encounter OR [facility], Operating Room, [facility] - 4th Floor [address] [place] [phone] Jarek Hough MD [address] [place] [address] 10/10/2024 1:20 PM EDT - 10/10/2024 3:29 PM EDT Surgery OR [facility], Operating Room, [facility] - 4th Floor [address] [place] [phone] Jarek Hough MD [address] [place] [address] THERMAL DESTRUCTION OF INTRAOSSEOUS BASIVERTEBRAL NERVE, INCLUDING ALL IMAGING GUIDANCE; FIRST 2 VERTEBRAL BODIES, LUMBAR OR SACRAL 10/14/2024 11:45 AM EDT Office Visit Cardiology, [facility] [address] [place] [phone] Leighann Lilly DO [address] [place] [address] 10/21/2024 1:00 PM EDT Office Visit Orthopaedics Spine Surgery [facility] [address] [place] [phone] Hallie Faria CRNP [address] [place] [address] 11/01/2024 10:00 AM EDT Office Visit Pharmacy, [facility] [address] [facility] [address] [facility] [place] [address] 11/14/2024 11:30 AM EDT Telemedicine Psychology [facility] [place] [address] [place] [address] Kristi Marlow, [facility] [address] [place] [address] 12/16/2024 10:20 AM EDT Office Visit Dermatology [facility] [address] [place] [address] Arianna Perez PA-C [address] [place] [address] 02/13/2025 11:30 AM EDT Imaging Radiology [facility] 132 [facility] [place] [phone] Scheduled Procedures Name Priority Associated Diagnoses Date/Ti [...] Power of Attor diallo? No Care Teams Human Resources Benefits Coordinator Relationship Specialty Start Date End Date Pierre Hill DO [address] [place] [address] PCP - General Internal Medicine 06/24/24 documented as of this encounter
--- OUTSIDE RECORDS SUMMARY | 2024-09-29 17:39 | External Medical Summary | Summary of Care ---
Author Name Unknown Organization [facility] Address [address] [place] [address] Phone [phone] Care Team Providers Care Financial Planning Consultant Name Role Phone Pierre Hill DO Primary Care Provider [phone] Reason for Visit * Reason Onset Date Comments Information 09/14/2024 Encounter Details Date Type Department Care Team ([facility] st Contact Info) Description 09/14/2024 Telephone Pharmacy, [facility] [address] [facility] [place] [address] [facility] [address] [place] [address] Information Allergies Active Allergy Reactions Criticality Noted Date [...] as of this encounter (statuses as of 09/14/2024) Medications buPROPion HCl ER (XL) 300 MG [...] as of this encounter (statuses as of 09/14/2024) Active Problems Problem Noted Date Diagnosed Date [...] as of this encounter (statuses as of 09/14/2024) Resolved Problems Problem Noted Date Diagnosed Date [...] as of this encounter (statuses as of 09/14/2024) Immunizations Name Administration Dates Next Due COVID-19 mRNA, LNP-s, No Pre serve, 2-Dose Series (TRELYS) 08/31/2022,08/30/2020,07/30/2020 COVID-19, MRNA-LNP, PF, 30 M CG/0.3 mL, 12 YRS AND ABOVE, IM (PFIZER-Comirnaty) 03/14/2024 Covid-19, Mrna, Lnp-s, Pf, B ivalent, 30 Mcg, IM, 12 yrs and above (Pfizer) 09/23/2022 Pneumococcal Conjugate Vacc, 13 Valent (Prevnar) 05/23/2015 Pneumococcal Conjugate Vacci ne, 20-valent ([id number]) 06/24/2024 Pneumococcal Polysaccharide PPV23 (Pneumovax) 02/16/2014,04/25/2008 RSV [...] No 06/24/2024 Does the household have a [facility] hospit[facility] source of income? (Household - for ages [...] Assessment Author No 03/07/2024 3:06 PM EDT Treva Lang RN * Are you blind or [...] Telephone Encounter - Pierre Hill DO - 09/14/2024 12:19 PM EDT Noted * Telephone Encounter - Hallie Randolph RPh - 09/14/2024 9:39 AM EDT Kevin, Patient has been scheduled with MTM pain 3 times and has not been seen to date due to cancellations. Since patient has not show for appointment, recommended for pcp to contact patient to discuss. MTDM will consider re-referral after surgery. Thank you, Hallie Randolph, Pharm D, BCACP Clinical Pharmacist 09/14/2024, 9:42 AM documented in this encounter Plan of Treatment Upcoming Encounters Date Type Department Care Team (Latest Contact Info) Description 09/15/2024 12:40 PM EDT Laboratory Lab [facility] 293 [place] [address] College, Lab [address] [place] [address] 09/19/2024 11:20 AM EDT Office Visit Family Practice 65 [facility] 293 [place] [address] Pierre Hill, DO [address] [place] [address] 09/20/2024 12:30 PM EDT Appointment Radiology, [address] [place] [address] 09/21/2024 10:00 AM EDT Office Visit [facility] [address] [facility] [place] [address] Arianna Perez PA-C [address] [facility] [place] [address] 09/22/2024 11:15 AM EDT Office Visit Orthopaedics [facility] [address] [place] [phone] Sergio Thomas, [address] [place] [address] 09/23/2024 3:00 PM EDT Telemedicine Orthopaedics Spine Surgery [facility] [address] [place] [phone] Jarek Hough MD [address] [place] [address] [place] [address] 09/30/2024 1:00 PM EDT Office Visit Orthopaedics Spine Surgery [facility] [address] [place] [phone] Jarek Hough MD [address] [place] [address] 10/07/2024 10:30 AM EDT Office Visit Otolaryngology [facility] [address] [place] [address] Nanci Schwarz MD [address] [place] [address] Jovanna Salcedo Au.D. [address] [place] [address] 10/10/2024 1:20 PM EDT Hospital Encounter OR [facility], Operating Room, [facility] - 4th Floor [address] [place] [address] Jarek Hough MD [address] [place] [address] 10/10/2024 1:20 PM EDT - 10/10/2024 3:29 PM EDT Surgery OR [facility], Operating Room, [facility] - 4th Floor [address] [place] [address] Jarek Hough MD [address] [place] [address] THERMAL DESTRUCTION OF INTRAOSSEOUS BASIVERTEBRAL NERVE, INCLUDING ALL IMAGING GUIDANCE; FIRST 2 VERTEBRAL BODIES, LUMBAR OR SACRAL 10/14/2024 11:45 AM EDT Office Visit Cardiology, [facility] [address] [place] [phone] Leighann Lilly DO [address] [place] [place] [address] 10/21/2024 1:00 PM EDT Office Visit Orthopaedics Spine Surgery [facility] [address] [place] [phone] Hallie Faria, AEROBICS INSTRUCTOR [address] [place] [phone] 11/01/2024 10:00 AM EDT Office Visit Pharmacy, [facility] [place] [address] [facility] [place] [address] 11/10/2024 9:00 AM EDT Office Visit Pharmacy, [facility] [place] [address] [facility] [address] [facility] [address] 11/10/2024 1:30 PM EDT Office Visit Orthopaedics [facility] [address] [place] [phone] Sergio Thomas, [address] [facility] [place], [place] [address] 11/14/2024 11:30 AM EDT Telemedicine Psychology [facility]ng[facility] Hall [address] [place] [address] Kristi Marlow, [facility] [address] [place] [address] 02/13/2025 11:30 AM EDT Imaging Radiology [facility] [address] [place] [phone] Scheduled Procedures Name Priority Associated Diagnoses Date/Ti [...] 08/31/2022, Additional history exists GFR 06/24/2025 06/24/2024, 100 12/2023, 03/07/2024, Additional history exists Depression Monitoring [...] Power of Attor diallo? No Care Teams Financial Planning Consultant Relationship Specialty Start Date End Date Pierre Hill DO [address] [place] [address] PCP - General Internal Medicine 06/24/24 documented as of this encounter
[2024-09-29] MEDS: ACETAMINOPHEN 325 MG TAB PO SCH (18:14)
[2024-09-29] MEDS: FAMOTIDINE 20 MG TAB PO PRN (18:18)
[2024-09-29] MEDS: oxyCODONE HCL IR 5 MG TAB (IMMEDIATE RELEASE) PO PRN (18:21)
[2024-09-29] MEDS: DICLOFENAC SOD 1% GEL 100 GM TUBE EXT SCH (18:46)
[2024-09-29] MEDS: diphenhydrAMINE Capsule 25 MG CAP PO PRN (19:42)
[2024-09-29] MEDS: GABAPENTIN 600 MG TAB PO SCH (21:21)
[2024-09-29] MEDS: MoRPHine SULFATE CR 15 MG TABCR PO SCH (21:21)
[2024-09-29] MEDS: METOPROLOL SUCC 25MG EXT REL TAB PO SCH (21:22)
[2024-09-29] MEDS: PANTOprazole 40 MG TAB PO SCH (23:40)
[2024-09-30] MEDS: SUMAtriptan succinate 100 MG TAB PO STA ×2 (00:30→20:39)
[2024-09-30] MEDS: [UNRECOGNIZED DRUG - REMARK] SCH (00:55)
[2024-09-30] MEDS ORDERED: diphenhydrAMINE 2%/ZINC 0.1% CREAM 28.4GM TUBE EXT PRN (02:28)
[2024-09-30] MEDS: LORATADINE 10 MG TAB PO ONE (04:00)
[2024-09-30] MEDS: LIDOCAINE 1% LOCAL 20 ML VIAL INFIL STA (07:45)
[2024-09-30] MEDS: CALCIUM CARBONATE 500 MG CHEWABLE TAB PO SCH (09:25)
[2024-09-30] MEDS: DULoxetine HCL 20 MG CAP PO SCH (09:25)
[2024-09-30] MEDS: buPROPion XL 300 MG TABCR PO SCH (09:25)
[2024-09-30] MEDS: buPROPion XL 150 MG TABCR PO SCH (09:25)
[2024-09-30] MEDS: LOSARTAN POTASSIUM 25 MG TAB PO SCH (09:25)
[2024-09-30] MEDS: ENOXAPARIN INJ 40 MG/0.4 ML SYR SQ SCH (09:26)
[2024-09-30] MEDS: TIMOLOL MALEATE 0.5% OP SOLN 5 ML BTL OPB SCH (09:26)
[2024-09-30 10:54] LABS: Hematocrit (blood only) 34.1 % (37.0-47.0); Hemoglobin 10.7 g/dl (12.0-16.0); Mean Corpuscular Hemoglobin 24.5 pg (25.0-34.0); Mean Corpuscular Hgb Conc 31.4 g/dL (32.0-36.0); Mean Corpuscular Volume 78.2 fL (80.0-100.0); Mean Platelet Volume 9.1 fL (9.4-12.4); Platelet Count 266 K/uL (130-400); RDW Coefficient of Variation 15.5 % (11.5-14.5); RDW Standard Deviation 44.3 fL (36.4-46.3); Red Blood Count 4.36 M/uL (4.20-5.40); White Blood Count 5.16 K/ul (4.8-10.8)
[2024-09-30 11:06] LABS: BUN Creatinine Ratio 12.2 (10-20); Calcium 8.8 mg/dl (8.6-10.3); Creatinine Clr Calc Pharmacy 114.8 ml/min; Magnesium 1.8 mg/dl (1.7-2.4); Potassium 4.4 mmol/L (3.5-5.1)
--- NOTE | 2024-09-30 12:32 | Hospitalist Progress Note ---
Date of Service September 30, 2024 Assessment & Plan (1) Ambulatory dysfunction: (2) History of left knee replacement: Plan This is a 68-year-old female who has significant past medical history of HTN, history of SVT, vitamin D deficiency, GERD, history of gastric bypass, hepatitis C, chronic left knee pain, chronic low back pain, chronic pain syndrome, POAG, and depression who presents to ED secondary to knee pain and inability to walk. Ambulatory dysfunction Chronic left knee pain in setting of prior replacement in 2009 and revision in 2011 in [place], [place] Loosening of hardware in L knee replacement Consult ortho Dr Aceves Pt reports she does not have any means to obtain transportation to [facility] or [place] - will need to talk to CM about options PT/OT- pt agreeable to rehab pt reports taking her chronic Morphine ER, heat, tylenol and 2,500mg of ASA BID for pain at home continue Morphine ER, will schedule tylenol, prn Oxy for mod-severe pain esr/crp elevated Appreciate ortho HTN Hx of SVT continue metoprolol and losartan Depression with anx continue cymbalta, wellbutrin Chronic pain syndrome 2/2 to back and knee pdmp reviewed scheduled for ablation with Dr. Hough 10/12 Hx of hep C s/p treatment DVT ppx: SQ lovenox FULL CODE PCP: Dr. Hill Dispo: admit to medical, await ortho input, pt/ot, possible rehab? if pt a greeable Admission and Anticipated Discharge Date Admission Date: September 29, 2024 Subjective pt was seen laying in bed States that L knee still painful Review of Systems Review of Systems: All systems reviewed & are unremarkable except as noted in Subjective Physical Exam Physical Exam: General: Alert, oriented. No acute distress HEENT: NC/AT CV: RRR Resp: Breath sounds clear bilaterally, no increased effort of breathing Abdomen: Soft, nontender Extremities: L knee wrapped with GIGI wrap Results & Data Results & Data Vital Signs (Past 12 Hours) Vital Signs Temp Pulse Resp BP Pulse Ox O2 Del Method 09/30/24 11:26 36.7 C 71 18 162/88 H 95 Room Air 09/30/24 09:25 36.7 C 63 14 130/64 93 Room Air
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
--- OUTSIDE RECORDS SUMMARY | 2024-09-30 16:38 | External Medical Summary | Summary of Care ---
Author Name Unknown Organization [facility] Address [address] [place] [address] Phone [phone] Care Team Providers Care Professional Security Officer Name Role Phone Pierre Hill DO Primary Care Provider [phone] Reason for Visit * Reason Onset Date Comments Surgery 09/30/2024 Encounter Details Date Type Department Care Team (Late st Contact Info) Description 09/30/2024 Telephone Orthopaedics Spine Surgery, [facility] Tyron Puente [address] [place] [address] Jarek Hough MD [address] [place] [address] Surgery Allergies Active Allergy Reactions Criticality Noted Date [...] as of this encounter (statuses as of 09/30/2024) Medications EPINEPHrine 0.3 MG/0.3ML Injection Solution Auto-injector (Autoinjector) [...] knee brace 1 Each 08/25/19 25 Active buPROPion HCl ER (XL) 300 MG Oral Tablet Extended Release 24 Hour (Wellbutrin XL) take 1 tablet by mouth every day in the [facility] with 150mg to make 450mg 90 Tablet 2 09/30/19 25 Active Gabapentin 600 MG Oral Tablet (Neurontin) take 2 tablets by mouth three times daily 540 Tablet 1 09/30/19 25 Active buPROPion HCl ER (XL) 150 MG Oral Tablet Extended Release 24 Hour (Wellbutrin XL)Indications:Epi sode of recurrent major depressive disorder, unspecified depression episode severity (HCC) Take 1 Tablet by mouth in the morning. 100 Tablet 2 09/27/19 25 Active Morphine Sulfate ER 15 MG Oral Tablet Extended Release (Ms Contin)Indications :Chronic pain syndrome,Chronic pain of left knee Take 1 Tablet by mouth in the morning and 1 Tablet before bedtime. 60 Tablet 09/30/19 25 Active documented as of this encounter (statuses as of 09/30/2024) Active Problems Problem Noted Date Diagnosed Date [...] as of this encounter (statuses as of 09/30/2024) Resolved Problems Problem Noted Date Diagnosed Date [...] as of this encounter (statuses as of 09/30/2024) Immunizations Name Administration Dates Next Due COVID-19 mRNA, LNP-s, No Pre serve, 2-Dose Series ([employer]) 08/31/2022,08/30/2020,07/30/2020 COVID-19, MRNA-LNP, PF, 30 M CG/0.3 mL, 12 YRS AND ABOVE, IM (PFIZER-Comirnat) 03/14/2024 Covid-19, Mrna, Lnp-s, Pf, B ivalent, 30 Mcg, IM, 12 yrs and above (Pfizer) 09/23/2022 Pneumococcal Conjugate Vacc, 13 Valent (Prevnar) 05/23/2015 Pneumococcal Conjugate Vacci ne, 20-valent ([id number]) 06/24/2024 Pneumococcal Polysaccharide PPV23 (Pneumovax) 02/16/2014,04/25/2008 RSV [...] Telephone Encounter - Jeni Hadley OSA - 09/30/2024 9:22 AM EDT PT called in requesting to speak with medical. States regarding canceling surgery w/ Dr. Hough. PT mention she is admitted and will be going to inpatient therapy then having knee surgery after. Please contact PT to discuss documented in this encounter Plan of Treatment Upcoming Encounters Date Type Department Care Team (Latest Contact Info) Description 09/30/2024 1:00 PM EDT Office Visit Orthopaedics Spine Surgery [facility] [address] [place] [address] Jarek Hough MD [address] [place] [address] 10/07/2024 10:30 AM EDT Office Visit Otolaryngology [facility] [address] [place] [address] Nanci Schwarz MD [address] [place] [address] Jovanna Salcedo Au.D. [address] [place] [address] 10/10/2024 11:45 AM EDT Imaging Radiology [facility] 1st [facility] [address] [place] [phone] 2024 2:43 PM EDT Hospital Encounter OR [facility], Operating Room, [facility] Floor [address] [place] [address] Jarek Hough MD [address] [place] [address] 2024 2:43 PM EDT - 2024 4:52 PM EDT Surgery OR [facility], Operating Room, [facility] Floor [address] [place] [address] Jarek Hough MD [address] [place] [address] [address] THERMAL DESTRUCTION OF INTRAOSSEOUS BASIVERTEBRAL NERVE, INCLUDING ALL IMAGING GUIDANCE; FIRST 2 VERTEBRAL BODIES, LUMBAR OR SACRAL 10/17/2024 3:30 PM EDT Office [place] [facility] [address] [place] [address] Everardo Ventura MD [address] [place] [address] 10/21/2024 1:00 PM EDT Office Visit Orthopaedics Spine Surgery [facility] [address] [place] [phone] Hallie Faria CRNP [address] [place] [address] 11/01/2024 10:00 AM EDT Office Visit Pharmacy, [facility] [address] [place] [address] [facility] [address] [place] [address] 11/10/2024 9:00 AM EDT Office Visit Pharmacy, [facility] [address] [place] [address] [facility] [address] [facility] [place] [address] 11/10/2024 1:30 PM EDT Office Visit Orthopaedics [facility] [address] [place] [phone] Sergio Thomas, DO [address] [place] [phone] 11/14/2024 11:30 AM EDT Telemedicine Psychology Miguel [facility]ngel Hall [address] [place] [address] Kristi Marlow, [facility] [address] [place] [address] 12/29/2024 1:00 PM EDT Office Visit Family Practice [address] [place] [address] [address] [place] [address] Pierre Hill, DO [address] [place] [address] 02/13/2025 11:30 AM EDT Imaging Radiology [facility] [address] [place] [address] 04/25/2025 10:00 AM EST Office Visit Dermatology [facility] [employer] [address] [facility] [place] [address] Michael Tamayo MD [address] [facility] [place] [address] Scheduled Procedures Name Priority Associated Diagnoses Date/Ti me THERMAL DESTRUCTION OF INTRAOSSEOUS BASIVERTEBRAL NERVE, INCLUDING ALL IMAGING GUIDANCE; FIRST 2 VERTEBRAL BODIES, LUMBAR OR SACRAL Lumbar spine pain Scoliosis of lumbar spine, unspecified scoliosis type Vertebrogenic low back pain 2024 2:43 PM EDT THERMAL DESTRUCTION OF INTRAOSSEOUS BASIVERTEBRAL NERVE, INCLUDING ALL IMAGING GUIDANCE; EACH ADD'L VERTEBRAL BODY, LUMBAR OR SACRAL Lumbar spine pain Scoliosis of lumbar spine, unspecified scoliosis type Vertebrogenic low back pain 2024 2:43 PM EDT Health Maintenance Due Date Last [...] Power of Attor diallo? No Care Teams Professional Security Officer Relationship Specialty Start Date End Date Pierre Hill DO [address] [place] [address] PCP - General Internal Medicine 06/24/24 documented as of this encounter
--- OUTSIDE RECORDS SUMMARY | 2024-09-30 16:38 | External Medical Summary | Summary of Care ---
Author Name Unknown Organization [facility] Address [address] [place] [address] Phone [phone] Care Team Providers Care School Guidance Counselor Name Role Phone Pierre Hill DO Primary Care Provider [phone] Reason for Visit * Reason Onset Date Comments Surgery 09/30/2024 Encounter Details Date Type Department Care Team (Late st Contact Info) Description 09/30/2024 Telephone Orthopaedics Spine Surgery, [facility] Tyron Puente [address] [place] [address] Jarek Hough MD [address] [place] [address] Surgery Allergies Active Allergy Reactions [...] tablet by mouth every day in the [facility] with 150mg to make 450mg [...] mRNA, LNP-s, No Pre serve, 2-Dose Series ([employer]) 08/31/2022,08/30/2020,07/30/2020 COVID-19, MRNA-LNP, PF, 30 M CG/0.3 mL, 12 YRS AND ABOVE, IM (PFIZER-Comirnat) 03/14/2024 Covid-19, Mrna, Lnp-s, Pf, B ivalent, 30 Mcg, IM, 12 yrs and above (Pfizer) 09/23/2022 Pneumococcal Conjugate Vacc, 13 Valent (Prevnar) 05/23/2015 Pneumococcal Conjugate Vacci ne, 20-valent ([id number]) 06/24/2024 Pneumococcal Polysaccharide PPV23 (Pneumovax) 02/16/2014,04/25/2008 RSV [...] PM EDT Office Visit Orthopaedics Spine Surgery [facility] [address] [place] [address] Jarek Hough MD [address] [place] [address] 10/07/2024 10:30 AM EDT Office Visit Otolaryngology [facility] [address] [place] [address] Nanci Schwarz MD [address] [place] [address] Jovanna Salcedo Au.D. [address] [place] [address] 10/10/2024 11:45 AM EDT Imaging Radiology [facility] 1st [facility] [address] [place] [phone] 2024 2:43 PM EDT Hospital Encounter OR [facility], Operating Room, [facility] Floor [address] [place] [address] Jarek Hough MD [address] [place] [address] 2024 2:43 PM EDT - 2024 4:52 PM EDT Surgery OR [facility], Operating Room, [facility] Floor [address] [place] [address] Jarek Hough MD [address] [place] [address] THERMAL DESTRUCTION OF INTRAOSSEOUS BASIVERTEBRAL NERVE, INCLUDING ALL IMAGING GUIDANCE; FIRST 2 VERTEBRAL BODIES, LUMBAR OR SACRAL 10/17/2024 3:30 PM EDT Office Visit [place] [place] [address] [place] [address] Everardo Ventura MD [address] [place] [address] 10/21/2024 1:00 PM EDT Office Visit Orthopaedics Spine Surgery [facility] [address] [place] [phone] Hallie Faria CRNP [address] [place] [address] 11/01/2024 10:00 AM EDT Office Visit Pharmacy, [facility] [address] [facility] [place] [address] [facility] [address] [facility] [place] [address] 11/10/2024 9:00 AM EDT Office Visit Pharmacy, [facility] [address] [facility] [place] [address] [facility] [address] [facility] [place] [address] 11/10/2024 1:30 PM EDT Office Visit Orthopaedics [facility] [address] [place] [phone] Sergio Thomas, DO [address] [place] [phone] 11/14/2024 11:30 AM EDT Telemedicine Psychology Miguel Ángel Hall [address] [place] [address] Kristi Marlow, [facility] [address] [place] [address] 12/29/2024 1:00 PM EDT Office Visit Family Practice [address] [place] [address] [address] [place] [address] Pierre Hill, DO [address] [place] [address] 02/13/2025 11:30 AM EDT Imaging Radiology [facility] [address] [place] [address] 04/25/2025 10:00 AM EST Office Visit Dermatology [facility] Radha Showell [address] [facility] [place] [address] Michael Tamayo MD [address] [facility] [place] [address] Scheduled Procedures Name Priority Associated Diagnoses Date/Ti [...] Power of Attor diallo? No Care Teams School Guidance Counselor Relationship Specialty Start Date End Date Pierre Hill DO [address] [place] [address] PCP - General Internal Medicine 06/24/24 documented as of this encounter
--- OUTSIDE RECORDS SUMMARY | 2024-09-30 16:38 | External Medical Summary | Summary of Care ---
Author Name Unknown Organization [facility] Address [address] [place] [address] Phone [phone] Care Team Providers Care Assistant To The President Name Role Phone Pierre Hill DO Primary Care Provider [phone] Reason for Visit * Reason Onset Date Comments Surgery 09/30/2024 Encounter Details Date Type Department Care Team (Late st Contact Info) Description 09/30/2024 Telephone Orthopaedics Spine Surgery, [facility] Tyron Puente [address] [place] [address] Jarek Hough MD [address] [place] [address] Surgery Allergies Active Allergy Reactions [...] tablet by mouth every day in the [facility] with 150mg to make 450mg 90 Tablet [...] mRNA, LNP-s, No Pre serve, 2-Dose Series (TRAKLOK) 08/31/2022,08/30/2020,07/30/2020 COVID-19, MRNA-LNP, PF, 30 M CG/0.3 mL, 12 YRS AND ABOVE, IM (PFIZER-Comirnat) 03/14/2024 Covid-19, Mrna, Lnp-s, Pf, B ivalent, 30 Mcg, IM, 12 yrs and above (Pfizer) 09/23/2022 Pneumococcal Conjugate Vacc, 13 Valent (Prevnar) 05/23/2015 Pneumococcal Conjugate Vacci ne, 20-valent ([id number]) 06/24/2024 Pneumococcal Polysaccharide PPV23 (Pneumovax) 02/16/2014,04/25/2008 RSV [...] PM EDT Office Visit Orthopaedics Spine Surgery [facility] [address] [place] [address] Jarek Hough MD [address] [place] [address] 10/07/2024 10:30 AM EDT Office Visit Otolaryngology [facility] [address] [place] [address] Nanci Schwarz MD [address] [place] [address] Jovanna Salcedo Au.D. [address] [place] [address] 10/10/2024 11:45 AM EDT Imaging Radiology [facility] 1st [facility] [address] [place] [phone] 2024 2:43 PM EDT Hospital Encounter OR [facility], Operating Room, [place] [facility] Floor [address] [place] [address] Jarek Hough MD [address] [place] [address] 2024 2:43 PM EDT - 2024 4:52 PM EDT Surgery OR [facility], Operating Room, [place] [facility] Floor [address] [place] [address] Jarek Hough MD [address] [place] [address] THERMAL DESTRUCTION OF INTRAOSSEOUS BASIVERTEBRAL NERVE, INCLUDING ALL IMAGING GUIDANCE; FIRST 2 VERTEBRAL BODIES, LUMBAR OR SACRAL 10/17/2024 3:30 PM EDT Office [place] [address] [place] [address] Everardo Ventura MD [address] [place] [address] 10/21/2024 1:00 PM EDT Office Visit Orthopaedics Spine Surgery [facility] [address] [place] [phone] Hallie Faria CRNP [address] [place] [address] 11/01/2024 10:00 AM EDT Office Visit Pharmacy, [facility] [address] [facility] [place] [address] [facility] [address] [place] [address] 11/10/2024 9:00 AM EDT Office Visit Pharmacy, [facility] [address] [facility] [place] [address] [facility] [address] [place] [address] 11/10/2024 1:30 PM EDT Office Visit Orthopaedics [facility] [address] [facility] [place] [address] Sergio Thomas, DO [address] [place] [address] 11/14/2024 11:30 AM EDT Telemedicine Psychology Miguel Ángel Hall [address] [place] [address] Kristi Marlow, [facility] [address] [place] [address] 12/29/2024 1:00 PM EDT Office Visit Family Practice [address] [place] [address] [address] [place] [address] Pierre Hill, DO [address] [place] [address] 02/13/2025 11:30 AM EDT Imaging Radiology [facility] [address] [place] [address] 04/25/2025 10:00 AM EST Office Visit Dermatology [facility] Radha Mohawk [address] [facility] [place] [address] Michael Tamayo MD 200 [facility] [place] [address] Scheduled Procedures Name Priority Associated Diagnoses Date/Ti [...] Power of Attor diallo? No Care Teams Assistant To The President Relationship Specialty Start Date End Date Pierre Hill DO 293 [place] [address] PCP - General Internal Medicine 06/24/24 documented as of this encounter
--- OUTSIDE RECORDS SUMMARY | 2024-09-30 16:39 | External Medical Summary | Summary of Care ---
Author Name Unknown Organization [facility] Address [address] [place] [address] Phone [phone] Care Team Providers Care Erp Developer Name Role Phone Mitchell Hill DO Primary Care Provider [phone] Reason for Visit * Reason Comments Medication Refill Encounter Details Date Type Department Care Team (Late st Contact Info) Description 09/26/2024 Refill Family Practice [address] [place] [address] [place] [address] Mitchell Hill DO [address] [place], [place] [id number] Allergies Active Allergy Reactions Criticality Noted Date [...] as of this encounter (statuses as of 09/29/2024) Medications EPINEPHrine 0.3 MG/0.3ML Injection Solution Auto-injector [...] tablet by mouth every day in the moring with 150mg to make 450mg 90 Tablet [...] 09/27/19 25 Active buPROPion HCl ER (XL) 300 MG Oral Tablet Extended Release 24 Hour (Wellbutrin XL) take 1 tablet by mouth every day in the am with 150mg to make 450mg 90 Tablet 2 5 12:05 PM EST 08/19/19 24 025 Discontin ued(Refil l) Gabapentin 600 MG Oral Tablet (Neurontin) take 2 tablets by mouth three times daily 540 Tablet 1 5 12:01 PM EST 09/11/19 24 025 Discontin ued(Refil l) Morphine Sulfate ER 15 MG Oral Tablet Extended Release (Ms Contin)Indications :Chronic pain syndrome,Chronic pain of left knee Take 1 Tablet by mouth in the morning and 1 Tablet before bedtime. 60 Tablet 08/27/19 25 025 Discontin ued(Refil l) documented as of this encounter (statuses as of 09/29/2024) Active Problems Problem Noted Date Diagnosed Date [...] as of this encounter (statuses as of 09/29/2024) Resolved Problems Problem Noted Date Diagnosed Date [...] as of this encounter (statuses as of 09/29/2024) Immunizations Name Administration Dates Next Due COVID-19 mRNA, LNP-s, No Pre serve, 2-Dose Series (GliaCure) 08/31/2022,08/30/2020,07/30/2020 COVID-19, MRNA-LNP, PF, 30 M CG/0.3 mL, 12 YRS AND ABOVE, IM ([facility]) 03/14/2024 Covid-19, Mrna, Lnp-s, Pf, B ivalent, 30 Mcg, IM, 12 yrs and above (GliaCure) 09/23/2022 Pneumococcal Conjugate Vacc, 13 Valent (Prevnar) 05/23/2015 Pneumococcal Conjugate Vacci ne, 20-valent ([id number]) 06/24/2024 Pneumococcal Polysaccharide PPV23 (Pneumovax) 02/16/2014,04/25/2008 RSV [...] Telephone Encounter - Mitchell Hill DO - 09/29/2024 2:08 PM EDTSigned Prescriptions: Disp Refills buPROPion HCl ER (XL) 300 MG Oral Tablet E*90 Tab*2 Sig: take 1 tablet by mouth every day in the am with 150mg to make 450mg Authorizing Provider: MITCHELL HILL Gabapentin 600 MG Oral Tablet (Neurontin) 540 Ta*1 Sig: take 2 tablets by mouth three times daily Authorizing Provider: MITCHELL HILL * Telephone Encounter - Mitchell Hill DO - 09/29/2024 2:08 PM EDTSigned Prescriptions: Disp Refills buPROPion HCl ER (XL) 300 MG Oral Tablet E*90 Tab*2 Sig: take 1 tablet by mouth every day in the am with 150mg to make 450mg Authorizing Provider: MITCHELL HILL Gabapentin 600 MG Oral Tablet (Neurontin) 540 Ta*1 Sig: take 2 tablets by mouth three times daily Authorizing Provider: MITCHELL HILL * Telephone Encounter - Lubna Brownlee CPhT - 09/29/2024 1:23 PM EDT Did you pend patient's preferred pharmacy and medication before forwarding?yes Pharmacy: [facility] Pending Prescriptions: Disp Refills buPROPion HCl ER (XL) 300 MG Oral Tablet *90 Tab*2 Sig: take 1 tablet by mouth every day in the am with 150mg to make 450mg Gabapentin 600 MG Oral Tablet (Neurontin) 540 Ta*1 Sig: take 2 tablets by mouth three times daily Last Visit: 08/01/2024 (in office), 08/08/2024 (telemedicine) Next Visit: 12/29/2024 If no future appointments scheduled, and last appointment is greater than a year ago, please schedule patient for a follow-up appointment Last date the medication was ordered: 08/19/2023 Is this request for a controlled substance?No Urine Drug Screen: Results for orders placed [...] 02:43 PM ALT 16 03/04/2020 07:18 PM * Telephone Encounter - Antoinette Schrader, ice skating coach - 09/26/2024 2:25 PM EDTPending Prescriptions: Disp Refills buPROPion HCl ER (XL) 300 MG Oral Tablet E*90 Tab*2 Sig: take 1tablet by mouth every day in the am with 150mg to make 450mg Gabapentin 600 MG Oral Tablet (Neurontin) 540 Ta*1 Sig: take 2 tablets by mouth three times daily documented in this encounter Plan of Treatment Upcoming Encounters Date Type Department Care Team (Latest Contact Info) Description 09/30/2024 1:00 PM EDT Office Visit Orthopaedics Spine Surgery [facility] [address] [place] [address] Jarek Hough MD [address] [place] [address] 10/07/2024 10:30 AM EDT Office Visit Otolaryngology [facility] [address] [place] [address] Nanci Schwarz MD [address] [place] [address] Jovanna Salcedo Au.D. [address] [place] [address] 10/10/2024 11:45 AM EDT Imaging Radiology [facility]st [facility] [address] [place] [address] 2024 2:43 PM EDT Hospital Encounter OR [facility], Operating Room, [facility] - 4th Floor [address] [place] [phone] Jarek Hough MD [address] [place] [address] 2024 2:43 PM EDT - 2024 4:52 PM EDT Surgery OR [facility], Operating Room, [facility] Floor [address] [place] [address] Jarek Hough MD [address] [place] [address] THERMAL DESTRUCTION OF INTRAOSSEOUS BASIVERTEBRAL NERVE, INCLUDING ALL IMAGING GUIDANCE; FIRST 2 VERTEBRAL BODIES, LUMBAR OR SACRAL 10/17/2024 3:30 PM EDT Office Visit Orthopaedics, Tyron Hernandez [address] [place] [place] [address] [place] [address] Everardo Ventura MD [address] [place] [address] 10/21/2024 1:00 PM EDT Office Visit Orthopaedics Spine Surgery [facility] [address] [place] [phone] Hallie Faria CRNP [address] [place] [phone] 11/01/2024 10:00 AM EDT Office Visit Pharmacy, [facility] [address] [place] [address] [facility] [address] [place] [address] 11/10/2024 9:00 AM EDT Office Visit Pharmacy, [facility] [address] [facility] [place] [place] [address] 11/10/2024 1:30 PM EDT Office Visit Orthopaedics [facility] [address] [facility] [address] Sergio Thomas, DO [address] [place] [address] 11/14/2024 11:30 AM EDT Telemedicine Psychology Miguel Ángel Hall [address] [place] [address] Kristi Marlow, WELFARE VISITOR [address] [place] [address] 12/29/2024 1:00 PM EDT Office Visit Family Practice [address] [place] [address] 293 [place] [address] Mitchell Hill, DO 293 [place] [address] 02/13/2025 11:30 AM EDT Imaging Radiology [facility] [address] [facility] [place] [phone] 04/25/2025 10:00 AM EST Office Visit Dermatology [facility] [address] [place], [place] [address] Michael Tamayo MD [address] [place], [place] [address] Scheduled Procedures Name Priority Associated Diagnoses Date/Ti [...] Power of Attor diallo? No Care Teams Erp Developer Relationship Specialty Start Date End Date Mitchell Hill DO 293 [place] [address] PCP - General Internal Medicine 06/24/24 documented as of this encounter
--- OUTSIDE RECORDS SUMMARY | 2024-09-30 16:39 | External Medical Summary | Summary of Care ---
Author Name Unknown Organization [facility] Address [address] [place] [address] Phone [phone] Care Team Providers Care Hand Shaper Name Role Phone Mitchell Hill DO Primary Care Provider [phone] Reason for Visit * Reason Onset Date Comments Medication Refill 09/29/2024 Encounter Details Date Type Department Care Team (Late st Contact Info) Description 09/29/2024 Refill Family Practice [address], [place] [address] [place] [phone] Mitchell Hill DO [address] [place] [address] Chronic pain syndrome; Chronic pain of left [...] 08/25/19 25 Active buPROPion HCl ER (XL) 150 [...] before bedtime. 60 Tablet 09/30/19 25 Active Morphine Sulfate ER 15 MG [...] mRNA, LNP-s, No Pre serve, 2-Dose Series (You[employer] Beauty) 08/31/2022,08/30/2020,07/30/2020 COVID-19, MRNA-LNP, PF, 30 M CG/0.3 mL, 12 YRS AND ABOVE, IM (PFIZER-Comirnaty) 03/14/2024 Covid-19, Mrna, Lnp-s, Pf, B ivalent, 30 Mcg, IM, 12 yrs and above (Pfizer) 09/23/2022 Pneumococcal Conjugate Vacc, 13 Valent (Prevnar) 05/23/2015 Pneumococcal Conjugate Vacci ne, 20-valent ([id number]) 06/24/2024 Pneumococcal Polysaccharide PPV23 (Pneumovax) 02/16/2014,04/25/2008 RSV [...] No 06/24/2024 Does the household have a [facility] source of income? (Household - [...] 03/07/2024 3:06 PM EDT Kiki Lang, RN * Are you blind or do [...] Encounter - Mitchell Hill DO - 09/29/2024 4:23 PM EDTSigned Prescriptions: Disp Refills Morphine Sulfate ER 15 MG Oral Tablet Exte*60 Tab*0 Sig: Take 1 Tablet by mouth in the morning and 1 Tablet before bedtime.Authorizing Provider: MITCHELL HILL----- * Telephone Encounter - Mitchell Hill DO - 09/29/2024 4:22 PM EDT I have reviewed the patient’s controlled substance dispensing history in the Prescription Drug Monitoring Program in compliance with the [facility] regulations before prescribing a controlled substance. [...] testing is available upon request. Medication due 09/24/2024 * Telephone Encounter - Flora Arroyo [facility] - 09/29/2024 9:15 AM EDT Pending Prescriptions: Disp Refills Morphine Sulfate ER 15 MG Oral Tablet Exte*60 Tab*0 Sig: Take 1 Tablet by mouth in the morning and 1 Tablet before bedtime. * Telephone Encounter - Flora Arroyo [facility] - 09/29/2024 9:10 AM EDT I have reviewed the patient’s controlled substance dispensing history in the Prescription Drug Monitoring Program in compliance with the [facility] regulations before prescribing a controlled substance. PDMP checked on 09/29/2024. Pending Prescriptions: Disp Refills Morphine Sulfate ER 15 MG Oral Tablet Ext*60 Tab*0 Sig: Take 1 Tablet by mouth in the morning and 1 Tablet before bedtime. Last Visit: 09/26/2024 (in office), 08/08/2024 (telemedicine) Next Visit: 12/29/2024 Date medication was last filled: 08/26/24 Date medication is due for refill: 09/24 Pharmacy: [id number] Is this request for a controlled substance? [...] available upon request. Please approve if appropriate. Thank you, Flora Arroyo PharmD Clinical Pharmacist [facility] ([facility]) [phone] 09/29/2024, 9:10 AM * Telephone Encounter - Katie Murillo PHARM Tech - 09/29/2024 8:55 AM EDT Pt stated she is out,please advise Did you pend patient's preferred pharmacy and medication before forwarding?yes Pharmacy: [id number] [address] [place] [address] Pending Prescriptions: Disp Refills Morphine Sulfate ER 15 MG Oral Tablet Ext*60 Tab*0 Sig: Take 1 Tablet by mouth in the morning and 1 Tablet before bedtime. Last Visit: 09/26/2024 (in office), 08/08/2024 (telemedicine) Next Visit: 12/29/2024 If no future appointments scheduled, and last appointment is greater than a year ago, please schedule patient for a follow-up appointment Last date the medication was ordered: 08-26-24 Is this request for a controlled substance?Yes, What was the last refill date 08-26-24 w/ quantity 60 and dosage 15 mg and Urine Drug Screen was completed Urine [...] [facility] [address] [place] [phone] Jarek Hough MD [address] [place] [address] 10/07/2024 10:30 AM EDT Office Visit Otolaryngology [facility] [address] [place] [address] Nanci Schwarz MD [address] [place] [address] Jovanna Salcedo Au.D. [address] [place] [address] 10/10/2024 11:45 AM EDT Imaging Radiology [facility] 1st [facility] [address] [place] [address] 2024 2:43 PM EDT Hospital Encounter OR [facility], Operating Room, [facility] - 4th Floor [address] [place] [address] Jarek Hough MD [address] [place] [address] 2024 2:43 PM EDT - 2024 4:52 PM EDT Surgery OR [facility], Operating Room, [facility] - 4th Floor [address] [place] [phone] Jarek Hough MD [address] [place] [address] THERMAL DESTRUCTION OF INTRAOSSEOUS BASIVERTEBRAL NERVE, INCLUDING ALL IMAGING GUIDANCE; FIRST 2 VERTEBRAL BODIES, LUMBAR OR SACRAL 10/17/2024 3:30 PM EDT Office Visit Orthopaedics, Tyron Hernandez [address] [place] [address] Everardo Ventura MD [address] [place] [address] 10/21/2024 1:00 PM EDT Office Visit Orthopaedics Spine Surgery [facility] [address] [place] [phone] Hallie Faria CRNP [address] [place] [phone] 11/01/2024 10:00 AM EDT Office Visit Pharmacy, [facility] [address] [place] [address] [facility] [address] [place] [address] 11/10/2024 9:00 AM EDT Office Visit Pharmacy, [facility] [address] [facility] [place] [address] [facility] [address] [place] [address] 11/10/2024 1:30 PM EDT Office Visit Orthopaedics [facility] [address] [place] [phone] Sergio Thomas DO [address] [place] [address] 11/14/2024 11:30 AM EDT Telemedicine Psychology [address] [place] [address] Kristi Marlow, DONATO [address] [place] [address] 12/29/2024 1:00 PM EDT Office Visit Family Practice [address], [place] [address] [place] [address] Mitchell Hill, [address] [place] [address] 02/13/2025 11:30 AM EDT Imaging Radiology [facility] [address] [place] [address] 04/25/2025 10:00 AM EST Office [facility]ology [facility] 200 [facility] [place] [address] Michael Tamayo MD 200 [facility] [place] [address] Scheduled Procedures Name Priority Associated Diagnoses Date/Ti [...] idiopathic Vertebrogenic low back pain Chronic pain syndrome Chronic pain of left knee Pain in joint, lower leg Lumbar spine pain Lumbago Scoliosis of lumbar [...] patient have Health Care Power of Attor daillo? No Care Teams Hand Shaper Relationship Specialty Start Date End Date Mitchell Hill DO [address] [place] [address] PCP - General Internal Medicine 06/24/24 documented as of this encounter
--- NOTE | 2024-09-30 21:13 | Procedure Note ---
Procedure Note Date of Service September 30, 2024 Note Procedure: Left knee arthrocentesis Surgeon: Pierre Aceves DO Pre-op diagnosis: Left knee pain Postop diagnosis: Left knee pain Indications: 68-year-old female with painful left total knee arthroplasty. She has evidence of loosening on x-ray and elevated ESR CRP. Patient has had previous R centesis which did not result in any growth, but due to her continued pain my recommendation would be for an arthrocentesis. I discussed with the patient the risks of this including inconclusive results, dry tap, pain, introduction of infection. Patient understood and wished to proceed. Procedure: 5 cc of 1% lidocaine without epinephrine were used in the subcutaneous tissues. Once adequate analgesia was achieved and the left knee was prepped and draped in standard sterile fashion using Betadine. An 18-gauge spinal needle was introduced into the knee joint, the stylette then removed, and attempted aspiration of the knee was attempted. Only about 0.1 cc of bloody fluid was able to be returned despite multiple attempts. We did attempt 2 different locations including lateral parapatellar and lateral suprapatellar without return of any fluid. I was willing to attempt again, but the patient stated she would not consent to another attempt. We then cleansed her leg, placed a Band-Aid, and wrapped her with an Dylan wrap. Coding
[2024-09-30] MEDS: MELATONIN 3 MG TAB PO PRN (22:12)
[2024-10-01 06:21] LABS: Hematocrit (blood only) 34.6 % (37.0-47.0); Hemoglobin 10.9 g/dl (12.0-16.0); Mean Corpuscular Hemoglobin 24.8 pg (25.0-34.0); Mean Corpuscular Hgb Conc 31.5 g/dL (32.0-36.0); Mean Corpuscular Volume 78.6 fL (80.0-100.0); Mean Platelet Volume 9.1 fL (9.4-12.4); Platelet Count 269 K/uL (130-400); RDW Coefficient of Variation 15.2 % (11.5-14.5); RDW Standard Deviation 43.7 fL (36.4-46.3); White Blood Count 4.83 K/ul (4.8-10.8)
[2024-10-01 06:46] LABS: BUN Creatinine Ratio 16.3 (10-20); Calcium 8.8 mg/dl (8.6-10.3); Creatinine Clr Calc Pharmacy 114.8 ml/min; Potassium 4.3 mmol/L (3.5-5.1)
[2024-10-01 08:29] LABS: Appearance Urine Clear (Clear); Bacteria Urine Automated 1+ (None Seen); Bilirubin Urine Negative (Negative); Blood Urine Negative (Negative); Cast Urine Automated 0-2 /lpf (0-2); Color Urine Yellow; Epithelial Cell Urine Auto 0-2 /hpf (0-2); Glucose Urine UA Negative (Negative); Ketones Urine Negative (Negative); Leukocyte Esterase Urine Trace (Negative); Nitrite Urine Negative (Negative); Protein Urine Negative (Negative); Specific Gravity Urine 1.012 (1.000-1.030); Urobilinogen Urine Positive (Negative); WBC Urine Automated 0-5 /hpf (0-5)
[2024-10-01] MEDS: ONDANSETRON INJ 2 MG/ML 2 ML VIAL IV PRN (09:46)
--- NOTE | 2024-10-01 14:06 | Hospitalist Progress Note ---
Date of Service October 01, 2024 Assessment & Plan (1) Ambulatory dysfunction: (2) History of left knee replacement: Plan This is a 68-year-old female who has significant past medical history of HTN, history of SVT, vitamin D deficiency, GERD, history of gastric bypass, hepatitis C, chronic left knee pain, chronic low back pain, chronic pain syndrome, POAG, and depression who presents to ED secondary to knee pain and inability to walk. Ambulatory dysfunction Chronic left knee pain in setting of prior replacement in 2009 and revision in 2011 in [place], [place] Loosening of hardware in L knee replacement Consult ortho Dr Aceves Pt reports she does not have any means to obtain transportation to [facility] [place] - will need to talk to CM about options PT/OT- pt agreeable to rehab pt reports taking her chronic Morphine ER, heat, tylenol and 2,500mg of ASA BID for pain at home continue Morphine ER, will schedule tylenol, prn Oxy for mod-severe pain esr/crp elevated Appreciate ortho recs -s/p Left knee arthrocentesis on 10/01 -recommending acute rehab -surgery with her [place] joint specialist HTN Hx of SVT continue metoprolol and losartan Depression with anx continue cymbalta, wellbutrin Chronic pain syndrome 2/2 to back and knee pdmp reviewed scheduled for ablation with Dr. Hough 10/12 Currently on gabapentin 1800mg BID, MS contin 15mg BID, receiving oxycodone 10mg q6h ordered prn but on schedule Hx of hep C s/p treatment DVT ppx: SQ lovenox FULL CODE PCP: Dr. Hill Dispo: acute rehab, awaiting placement Admission and Anticipated Discharge Date Admission Date: September 30, 2024 Subjective pt was seen sitting up in bed knee pain at the end of exam agreeable to rehab Review of Systems Review of Systems: All systems reviewed & are unremarkable except as noted in Subjective Physical Exam Physical Exam: General: Alert, oriented. No acute distress HEENT: NC/AT CV: RRR Resp: Breath sounds clear bilaterally, no increased effort of breathing Abdomen: Soft, nontender Extremities: L knee wrapped with GIGI wrap Results & Data Results & Data Vital Signs (Past 12 Hours) Vital Signs Temp Pulse Resp BP Pulse Ox O2 Del Method 10/01/24 07:25 36.8 C 68 18 119/63 94 Room Air
[2024-10-01] MEDS: LACTASE 3000 UNIT TAB PO SCH (14:32)
[2024-10-02 07:10] LABS: Hematocrit (blood only) 34.4 % (37.0-47.0); Hemoglobin 10.8 g/dl (12.0-16.0); Mean Corpuscular Hemoglobin 24.7 pg (25.0-34.0); Mean Corpuscular Hgb Conc 31.4 g/dL (32.0-36.0); Mean Corpuscular Volume 78.5 fL (80.0-100.0); Mean Platelet Volume 9.3 fL (9.4-12.4); Platelet Count 286 K/uL (130-400); RDW Coefficient of Variation 15.1 % (11.5-14.5); RDW Standard Deviation 42.9 fL (36.4-46.3); Red Blood Count 4.38 M/uL (4.20-5.40); White Blood Count 5.51 K/ul (4.8-10.8)
[2024-10-02 07:37] LABS: Creatinine Clr Calc Pharmacy 112.5 ml/min
--- NOTE | 2024-10-02 12:15 | XRay Report ---
HISTORY: Abdominal pain. TECHNIQUE: Supine AP abdominal radiographs. COMPARISON: CT of the abdomen pelvis without contrast dated 08/04/2024. FINDINGS: Large volume of formed stool in the colon. No gas-filled dilated loops of small bowel. Surgical clips throughout the upper abdomen. Severe lumbar degenerative spondylosis. As shaped lumbar scoliosis. Right hip arthroplasty. Included lung bases are clear. IMPRESSION: * No acute findings. * Severe lumbar scoliosis and degenerative spondylosis. * Additional chronic and/or incidental findings as above. Electronically signed by Malcolm Sevilla 10-02-2024 12:14 PM
--- NOTE | 2024-10-02 14:02 | Hospitalist Progress Note ---
Date of Service October 02, 2024 Assessment & Plan (1) Ambulatory dysfunction: (2) History of left knee replacement: Plan This is a 68-year-old female who has significant past medical history of HTN, history of SVT, vitamin D deficiency, GERD, history of gastric bypass, hepatitis C, chronic left knee pain, chronic low back pain, chronic pain syndrome, POAG, and depression who presents to ED secondary to knee pain and inability to walk. Ambulatory dysfunction Chronic left knee pain in setting of prior replacement in 2009 and revision in 2011 in [place], [place] Loosening of hardware in L knee replacement Consult ortho Dr Aceves Pt reports she does not have any means to obtain transportation to [facility] [place] - will need to talk to CM about options PT/OT- pt agreeable to rehab pt reports taking her chronic Morphine ER, heat, tylenol and 2,500mg of ASA BID for pain at home continue Morphine ER, will schedule tylenol, prn Oxy for mod-severe pain esr/crp elevated Appreciate ortho recs -s/p Left knee arthrocentesis on 10/01 -recommending acute rehab -surgery with her [place] joint specialist Constipation Pt with Nausea on 10/02 Abd tender On narcs so KUB ordered to r/o SBO Notes large amount of formed stool Daily bowel regimen Antiemetics prn HTN Hx of SVT continue metoprolol and losartan Depression with anx continue cymbalta, wellbutrin Chronic pain syndrome 2/2 to back and knee pdmp reviewed scheduled for ablation with Dr. Hough 10/12 Currently on gabapentin 1800mg BID, MS contin 15mg BID, receiving oxycodone 10mg q6h ordered prn but on schedule Hx of hep C s/p treatment DVT ppx: SQ lovenox FULL CODE PCP: Dr. Hill Dispo: acute rehab, awaiting placement Admission and Anticipated Discharge Date Admission Date: September 30, 2024 Subjective pt was seen laying in bed nauseous today Awaiting rehab placement Review of Systems Review of Systems: All systems reviewed & are unremarkable except as noted in Subjective Physical Exam Physical Exam: General: Alert, oriented. No acute distress HEENT: NC/AT CV: RRR Resp: Breath sounds clear bilaterally, no increased effort of breathing Abdomen: Soft,tender Extremities: L knee wrapped with GIGI wrap Results & Data Results & Data Vital Signs (Past 12 Hours) Vital Signs Temp Pulse Resp BP Pulse Ox O2 Del Method 10/02/24 07:23 36.6 C 61 16 156/83 H 93 Room Air
[2024-10-02] MEDS: POLYETHYLENE (MIRALAX) 17 GM PACK PO SCH (16:35)
[2024-10-02] MEDS: CEFDINIR 300 MG CAP PO SCH (19:26)
[2024-10-02] MEDS: DOCUSATE SODIUM 100 MG CAP PO SCH (19:27)
[2024-10-03] MEDS: PROMETHAZINE 6.25 MG/50.25 ML BAG IV PRN (05:52)
[2024-10-03 09:07] LABS: Hematocrit (blood only) 38.3 % (37.0-47.0); Mean Corpuscular Hemoglobin 24.6 pg (25.0-34.0); Mean Corpuscular Hgb Conc 31.3 g/dL (32.0-36.0); Mean Corpuscular Volume 78.5 fL (80.0-100.0); Mean Platelet Volume 8.7 fL (9.4-12.4); Platelet Count 317 K/uL (130-400); RDW Coefficient of Variation 15.3 % (11.5-14.5); RDW Standard Deviation 43.3 fL (36.4-46.3); Red Blood Count 4.88 M/uL (4.20-5.40); White Blood Count 5.93 K/ul (4.8-10.8)
[2024-10-03 09:24] LABS: BUN Creatinine Ratio 16.7 (10-20); Calcium 9.4 mg/dl (8.6-10.3); Creatinine Clr Calc Pharmacy 104.2 ml/min; Potassium 3.9 mmol/L (3.5-5.1)
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
[2024-10-03 14:28] VITALS: BP 122/70; PULSE 64; RESP 18; TEMP 98.2; O2SAT 92
== END 2024-10-03 15:54 | DRG 560 ==
LOC: ED 13:00 → 3W 13:00 → SUATTDRO 15:53 → 3W 17:02 → 3N 10-02 18:21

== ENCOUNTER 2024-11-20 17:33 | Inpatient (IN) ==
--- NOTE | 2024-11-20 17:43 | Emergency Department Note ---
Impression & Plan Intractable nausea and vomiting, Gastroenteritis, Abdominal pain ED Provider Note NAME: IRVIN CERRATO AGE: 69 SEX: F : 1955 ARRIVES VIA: Ambulance INFORMANT: Patient ED PROVIDER(S): Asa Burnett MD CHIEF COMPLAINT: Nausea, vomiting, diarrhea. PLAN: Disposition: Admit MEDICAL DECISION MAKING: The patient is a pleasant 69-year-old woman with a past medical history of acid reflux, PUD, history of gastric bypass, chronic pain on chronic narcotics who presents to the emergency department via EMS for evaluation of ongoing nausea, vomiting, diarrhea for the past 2 weeks where she reports being seen at [facility] last week and had unremarkable blood work, CT imaging and stool studies. Patient reports she has not had any improvement in her symptoms and presents for evaluation. She denies any recent antibiotics. She denies any fevers. She denies any cough, yesterday, chest pain or shortness of breath. Patient reports she has not followed up with her primary care doctor due to being in the process of reestablishing care with a primary care doctor as she did not like her prior PCP and stopped seeing them several months ago. On evaluation patient is no acute distress, afebrile with blood pressure 160/70s and vital signs otherwise stable. She appears clinically dry. She has generalized abdominal discomfort without discrete tenderness. EKG without overt acute ischemia. CXR negative for acute cardiopulmonary process per my personal preliminary review/interpretation. WBC, H/H and platelets within normal limits. Chemistry without metabolic acidosis. Electrolytes LFTs unremarkable. High-sensitivity troponin 3.3, within normal limits. Lipase is not elevated. UA without infection. CT of the abdomen pelvis was performed and was negative for acute abnormalities. Post gastric bypass changes are noted and unchanged. Patient was treated with IV hydration, IV famotidine, Zofran as well as IM dicyclomine and Phenergan. Unfortunately, the patient did have nausea and vomiting in the emergency department. While the patient's blood work and imaging are unremarkable given her report of inability to tolerate oral intake the patient was referred to the hospital service for further management. Case was discussed with Dr. Rodriguez, [facility] hospitalist, who will evaluate the patient for admission. Further management per admitting team. Triage Nursing notes reviewed and agree them. Prior/external medical records reviewed Vital Signs: reviewed Differential diagnosis: Gastroenteritis, food borne illness, infections, appendicitis, diverticulitis, inflammatory bowel disease, obstruction, GI bleed, biliary pathology, volvulus, as well as other pathologies. ER treatment provided: See below. Diagnostics interpreted by me: ECG: Normal sinus rhythm, 67 bpm, no ectopy, no overt ST elevation or depression, LVH, QTc 443, QRS 102. Cardiac Monitoring: An order for continuous cardiac monitoring was placed and demonstrated Normal sinus rhythm, 67 bpm, no ectopy Laboratory studies: See below Imaging studies: See below Consultation(s): Dr. Rodriguez, [facility] hospitalist HPI: Per MDM. ROS: See above HPI for pertinent positives & negatives. A total of 10 systems reviewed and were otherwise negative. VITALS:See Below PHYSICAL EXAMINATION: GENERAL: Awake, alert, in no distress, BMI 31.1. HENT: Normocephalic, atraumatic. Oropharynx with dry mucous membranes and otherwise unremarkable. EYES: Normal conjunctiva. Sclera non-icteric. NECK: Supple. No nuchal rigidity. FROM. No JVD. RESPIRATORY: Clear to auscultation. CARDIAC: Regular rate, normal rhythm. Extremities warm and well perfused. Pulses equal. ABDOMEN: Soft, non-distended. Generalized discomfort without discrete tenderness to palpation. No rebound or guarding. No masses. MUSCULOSKELETAL: Chest examination reveals no tenderness. The back is symmetrical on inspection without obvious abnormality. There is no CVA tenderness to palpation. No joint edema. LOWER EXTREMITIES: Calves are equal size bilaterally and non-tender. No edema. No discoloration. NEURO: Normal sensorium. No sensory or motor deficits noted. SKIN: No rash or jaundice noted. Asa Burnett MD Past Med/Surg History Problem List (Updated 11/21/24 @ 00:27 by Bill Rodriguez MD) Excessive use of nonsteroidal anti-inflammatory drug (NSAID) Staph aureus infection Abdominal pain (Acute) Gastroenteritis (Acute) Intractable nausea and vomiting (Acute) 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 Weakness (Acute) Ambulatory dysfunction (Acute) Acute knee pain (Acute) History of left knee replacement Ambulatory dysfunction Palpitations Shortness of breath (Acute) Elevated troponin (Acute) Sustained SVT (Acute) Current use of aspirin (Acute) SVT (supraventricular tachycardia) (Acute) Elevated troponin (Acute) Elevated erythrocyte sedimentation rate CRP elevated Anastomotic ulcer Depression Hypertension hx Chronic pain syndrome Painful total knee replacement, left (Acute) Epigastric pain Acute encephalopathy Hypoxia Generalized pain Bilateral knee pain (Acute) Bilateral hip pain (Acute) Back pain (Acute) Rhabdomyolysis (Acute) Fall (Acute) Iron deficiency Acute alteration in mental status (Acute) Hypokalemia Painful total knee replacement Ulcer at site of surgical anastomosis following bypass of stomach Adenoma Red blood cell antibody positive, compatible PRBC difficult to obtain Vitamin D insufficiency Anxiety Osteoarthritis Neuropathy Chronic pain Anemia (Acute) Medical History Acute hypoxemic respiratory failure Altered mental status Gastric ulcer Left wrist fracture Left wrist pain Gastritis Medical marijuana use has not used several years Diarrhea Encounter for pre-operative examination Melena Acute hypotension Acute GI bleeding Hx MRSA infection dx [facility] years ago, "it was in her blood" Irritable bowel syndrome with constipation Hepatitis C hx - treated History of anesthesia reaction hx of waking up during procedures Bulging discs Scoliosis Spinal stenosis Glaucoma Attention deficit disorder (ADD) Migraine GI bleed admitted to [facility] 06/2022; no current problems Surgical History H/O gastric bypass History of partial hysterectomy History of bilateral breast reduction surgery History of bilateral tubal ligation Status post right foot surgery x7--hardware in place Status post left foot surgery x7-hardware in place History of open reduction and internal fixation (ORIF) procedure right ankle--hardware in place History of fusion of cervical spine C4-C5--normal ROM History of right shoulder replacement History of total right hip replacement History of total left knee replacement (TKR) x2 History of colonoscopy History of esophagogastroduodenoscopy (EGD) History of cholecystectomy History of appendectomy History of mandibular surgery 1978--wired shut History of tooth extraction History of wisdom tooth extraction History of eye surgery right---scar tissue from cataract sx History of bilateral cataract extraction History of cardiac cath [address] [facility]---"fistula in heart between 2 valves"--no stents; no cardio, just PCP History of lung biopsy right side--benign Family History Mother Colorectal cancer Father Lung cancer Family history of esophageal cancer Brother Family history of esophageal cancer Grandfather (Maternal) Family history of esophageal cancer Other No family history of adverse response to anesthesia Social History (Updated 11/21/24 @ 00:17 by Bill Rodriguez MD) Smoking Status: Never smoker Second Hand Exposure: No; Do You Dip or Chew Tobacco: No; Hx Alcohol Use: No Hx Substance Use: No Preferred Language: Romanian Communication Ability: Effective Nuclear Engineering Technician Required: No Beliefs That Will Affect Care: None marital status: Single Current Living Situation: Alone Current Living Situation Comment: live in one story home with her two cats current occupational status: retired How many Children do You have: 1 Feels Safe at Home: Yes Assistive Devices: Cane and Walker Allergies Allergies Allergy/AdvReac Type Severity Reaction Status Date / Time bee venom protein (honey bee) Allergy Severe Anaphylaxis Verified 11/20/24 18:38 sulfamethoxazole Allergy Unknown at age 20, Verified 11/20/24 18:38 can not remember what happened trimethoprim Allergy Unknown at age 20, Verified 11/20/24 18:38 can not remember what happened aripiprazole [From Abilify] AdvReac Severe Tremors Verified 11/20/24 18:38 lactose AdvReac Intermediate MILK & ICE Verified 11/20/24 18:38 CREAM--DIARRHEA metoclopramide [From Reglan] AdvReac Intermediate TONGUE Verified 11/20/24 18:38 "TICS" Home Meds Home Medications Medication Instructions Recorded Confirmed bupropion HCl 150 mg 24 hr tablet, 150 mg PO QAM 06/03/22 11/20/24 extended release (Wellbutrin XL) bupropion HCl 300 mg 24 hr tablet, 300 mg PO QAM 06/03/22 11/20/24 extended release (Wellbutrin XL) bismuth subsalicylate 262 mg 524 mg PO QID PRN Gi Upset 09/24/23 11/20/24 tablet (Pepto-Bismol) tafluprost (PF) 0.0015 % eye drops 2 drp OPB HS 09/24/23 11/20/24 in a dropperette timolol maleate 0.5 % eye drops 1 drp OPB QAM 09/24/23 11/20/24 epinephrine 0.3 mg/0.3 mL 0.3 mg IM DIRECTED PRN Allergic 11/29/23 11/20/24 injection, auto-injector (EpiPen) Reaction loperamide 2 mg capsule (Imodium 2 mg PO Q6H PRN Diarrhea 06/17/24 11/20/24 A-D) duloxetine 20 mg capsule,delayed 20 mg PO QAM 08/03/24 11/20/24 release triamcinolone acetonide 0.1 % 1 applic topical BID PRN SKIN 08/03/24 11/20/24 topical ointment IRRITATIONS gabapentin 600 mg tablet 1,800 mg PO BID 08/04/24 11/20/24 aspirin 500 mg tablet 2,500 mg PO BID 09/06/24 11/20/24 calcium carbonate (Tums) 300 mg PO BID 09/06/24 11/20/24 diphenhydramine HCl 25 mg capsule 25 mg PO DAILY PRN Allergy Symptoms 09/06/24 11/20/24 (Benadryl) lactase 3,000 unit tablet 3,000 unit PO TIDM PRN WITH MILK 11/20/24 11/20/24 (Dairy-Aid) PRODUCTS NEEDED Previous Rx's Medication Instructions Recorded pantoprazole 40 mg tablet,delayed 40 mg PO BID 90 days #180 tabs 06/08/24 release sumatriptan succinate 100 mg tablet 100 mg PO DAILY PRN Migraine 10/28/24 Headache #10 tabs losartan 25 mg tablet 25 mg PO QAM #30 tabs 11/01/24 metoprolol succinate 25 mg 25 mg PO BID #60 tabs 11/01/24 tablet,extended release 24 hr oxycodone 5 mg tablet 10 mg (2 x 5 mg) PO Q6H PRN pain 11/01/24 #180 tabs sumatriptan succinate 50 mg tablet 50 mg PO DAILY PRN migraine 11/01/24 headache #30 tabs Results & Data (ED) Vital Signs Vital Signs - 24 hr 11/20/24 17:48 11/20/24 17:56 11/20/24 19:25 Temperature 36.6 C Temperature Source Oral Pulse Rate 73 71 67 Respiratory Rate 18 18 Blood Pressure 167/78 H 150/79 H Blood Pressure Mean 107 102 Pulse Oximetry 95 95 Oxygen Delivery Method Room Air Sepsis Recent Fever Within 48 Hours No Sepsis New/Unexplained Change in Mental Status No Sepsis Action Taken by Nursing No Action Required 11/20/24 20:44 11/20/24 21:37 11/20/24 22:41 Temperature Temperature Source Pulse Rate 71 72 78 Respiratory Rate 20 18 Blood Pressure 153/86 H 153/86 H Blood Pressure Mean 108 108 Pulse Oximetry 98 99 Oxygen Delivery Method Sepsis Recent Fever Within 48 Hours Sepsis New/Unexplained Change in Mental Status Sepsis Action Taken by Nursing Laboratory Data Attestation: I reviewed the patient's lab results. 11/20/24 17:51 11/20/24 17:51 Lab Results 11/20/24 Range/Units 17:51 WBC 8.70 (4.8-10.8) K/ul RBC 5.04 (4.20-5.40) M/uL Hgb 12.8 (12.0-16.0) g/dl Hct 38.5 (37.0-47.0) % MCV 76.4 L (80.0-100.0) fL MCH 25.4 (25.0-34.0) pg MCHC 33.2 (32.0-36.0) g/dL RDW Std Deviation 42.8 (36.4-46.3) fL RDW Coeff of Faizan 15.7 H (11.5-14.5) % Plt Count 382 (130-400) K/uL MPV 8.6 L (9.4-12.4) fL Immature Gran % (Auto) 0.3 % Neut % (Auto) 72.1 % Lymph % (Auto) 21.5 % Valley % (Auto) 5.1 % Eos % (Auto) 0.7 % Baso % (Auto) 0.3 % Neut # (Auto) 6.27 (1.40-6.50) K/uL Lymph # (Auto) 1.87 (1.20-3.40) K/uL Valley # (Auto) 0.44 (0.11-0.59) K/uL Eos # (Auto) 0.06 (0.00-0.50) K/uL Baso # (Auto) 0.03 (0.00-0.20) K/uL Immature Gran # (Auto) 0.03 (0.01-0.20) K/uL ESR 55 H (0-30) mm/hr Sodium 134 L (136-145) mmol/L Potassium 3.6 (3.5-5.1) mmol/L Chloride 100 (98-107) mmol/L Carbon Dioxide 24 (21-32) mmol/L Anion Gap 10 (3-11) BUN 8 (6-23) mg/dl Creatinine 0.48 L (0.6-1.2) mg/dl Est Cr Clr Drug Dosing 120.6 ml/min eGFR 103.11 BUN/Creatinine Ratio 16.7 (10-20) Glucose 108 H (70-99(Fasting)) mg/dl Calcium 9.4 (8.6-10.3) mg/dl Magnesium 1.7 (1.7-2.4) mg/dl Total Bilirubin 0.4 (0.2-1.0) mg/dl Direct Bilirubin 0.1 (0-0.2) mg/dl AST 15 (13-39) U/L ALT 9 (7-52) U/L Alkaline Phosphatase 85 (34-104) U/L Troponin I High Sens 3.3 (0-14) pg/ml C-Reactive Protein 0.52 H (0-0.5) mg/dl Total Protein 7.7 (6.0-8.3) gm/dl Albumin 3.8 (3.4-5.0) gm/dl Globulin 3.9 (2.5-4.0) gm/dl Albumin/Globulin Ratio 1.0 (0.9-2) Lipase 9 L (11-82) U/L Urine Color Yellow Urine Appearance Clear (Clear) Urine pH 6.0 (4.5-7.5) Ur Specific Norman 1.010 (1.000-1.030) Urine Protein Negative (Negative) Urine Glucose (UA) Negative (Negative) Urine Ketones Negative (Negative) Urine Blood Negative (Negative) Urine Nitrite Negative (Negative) Urine Bilirubin Negative (Negative) Urine Urobilinogen Negative (Negative) Ur Leukocyte Esterase Negative (Negative) Urine Comment Administered Medications Discontinued Medications Dicyclomine HCl (Dicyclomine Hcl 10 Mg/Ml 2 Ml Amp/Vial) 20 mg IM NOW ONE Stop: 11/20/24 21:05 Last Admin: 11/20/24 21:13 Dose: 20 mg Documented By: MANNY Sodium Chloride (Nss) 1,000 mls @ 999 mls/hr IV .Q1H1M ONE Stop: 11/20/24 18:41 Last Infusion: 11/20/24 19:08 Dose: Infused Documented By: Admin: 11/20/24 18:05 Dose: 999 mls/hr Documented By: NRB Famotidine (Pepcid 20mg Iv Push) 20 mg in 5 mls @ 2.5 mls/min IV NOW STA Stop: 11/20/24 17:42 Last Admin: 11/20/24 18:04 Dose: 2.5 mls/min Documented By: NRB Promethazine HCl (Phenergan) 25 mg in 51 mls @ 204 mls/hr IV NOW STA Stop: 11/20/24 21:18 Last Infusion: 11/20/24 21:36 Dose: Infused Documented By: Admin: 11/20/24 21:13 Dose: 204 mls/hr Documented By: LAF Pantoprazole Sodium (Protonix) 40 mg in 10 mls @ 5 mls/min IV NOW ONE Stop: 11/20/24 23:01 Last Admin: 11/20/24 23:04 Dose: 5 mls/min Documented By: MANNY Ioversol (Optiray 320 100ml) 92 ml IV ONCE ONE Stop: 11/20/24 19:27 Last Admin: 11/20/24 19:27 Dose: 92 ml Documented By: KARENK Morphine Sulfate (Morphine Sulfate 2 Mg/Ml Carp) 2 mg IV NOW STA Stop: 11/20/24 22:45 Last Admin: 11/20/24 23:05 Dose: 2 mg Documented By: MANNY Ondansetron HCl (Ondansetron Inj 2 Mg/Ml 2 Ml Vial) 4 mg IV NOW STA Stop: 11/20/24 17:42 Last Admin: 11/20/24 18:04 Dose: 4 mg Documented By: [email or web address] Imaging Data Radiologist's Impression: Chest X-Ray 11/20/24 17:41 Chest radiograph, one view History: Chest pain. Comparison: September 06, 2024. Findings: Lower cervical spine fusion hardware. Right shoulder arthroplasty changes. Cardiomediastinal silhouette is within normal limits. Pulmonary vasculature is within normal limits. Lungs are clear. Pleural spaces are within normal limits. Advanced degenerative changes left glenohumeral joint. Impression: Stable exam. No findings to indicate source for patient's symptoms. Electronically signed by Heladio Lua 11-20-2024 7:00 PM Abdomen/Pelvis CT 11/20/24 18:45 EXAMINATION: CT of the abdomen and pelvis performed after the administration of IV contrast. TECHNIQUE: Helical CT images from the lung bases through the symphysis pubis were obtained with contrast. Coronal and sagittal reformatted images were generated at a workstation for further assessment. Dose reduction techniques were achieved by using automatic exposure control and/or adjustment of mA and/or kV according to patient size and/or use of iterative reconstruction technique. HISTORY: Nausea vomiting and diarrhea. COMPARISON: Noncontrast exam August 04, 2024 and contrast exam September 24, 2023. FINDINGS: Electric Dolly Operator film demonstrates right hip arthroplasty changes. Lung windows demonstrate mild subsegmental atelectasis. Soft tissue windows demonstrate gastric bypass changes. Thoracic migration of the gastric pouch and fundus of the gastric viscus. Findings similar to prior study. No obstruction. Cholecystectomy changes. Subcentimeter hypodensities left kidney likely representing cysts. Findings similar to prior study. Streak artifact from right hip arthroplasty hardware limits pelvic evaluation. Uterus not identified. Likely right ovarian cyst. No adnexal mass. This does not appear to be significantly changed. Radiopaque densities within the large bowel. Question enteric contrast. Additional densities within the small bowel. Findings may represent residual radiopaque medicinal debris. Appendix is not identified. No secondary findings of appendiceal disease. Remaining solid and hollow organs of the abdomen and pelvis are within normal limits. No free air or free fluid. Enlarged left groin lymph nodes. These are likely reactive. Bone windows demonstrate advanced degenerative changes lumbar spine difficulty appreciating significant interval change when compared to most recent exam. IMPRESSION: 1. Gastric bypass changes with radiation of the gastric pouch and portions of the gastric fundus. Findings are unchanged. No obstruction. 2. No additional findings to indicate source of patient's symptoms. Please see above for details. Electronically signed by Heladio Lua 11-20-2024 8:41 PM Discharge Plan Visit Data Chief Complaint: Vomiting Stated Complaint: NAUSEA, VOMITING, DIARRHEA ED Provider: Asa Burnett Discharge Problem: Intractable nausea and vomiting, Gastroenteritis, Abdominal pain Patient Disposition: Admitted As Inpatient Condition: Fair Discharge Problem: Abdominal pain Qualifiers: Abdominal location: generalized Qualified Code(s): R10.84 - Generalized abdominal pain
[2024-11-20 18:05] LABS: Basophils # (auto) 0.03 K/uL (0.00-0.20); Basophils % (auto) 0.3 %; Eosinophils # (auto) 0.06 K/uL (0.00-0.50); Eosinophils % (auto) 0.7 %; Hematocrit (blood only) 38.5 % (37.0-47.0); Hemoglobin 12.8 g/dl (12.0-16.0); Immature Granulocytes # (auto) 0.03 K/uL (0.01-0.20); Immature Granulocytes % (auto) 0.3 %; Lymphocytes # (auto) 1.87 K/uL (1.20-3.40); Lymphocytes % (auto) 21.5 %; Mean Corpuscular Hemoglobin 25.4 pg (25.0-34.0); Mean Corpuscular Hgb Conc 33.2 g/dL (32.0-36.0); Mean Corpuscular Volume 76.4 fL (80.0-100.0); Mean Platelet Volume 8.6 fL (9.4-12.4); Monocytes # (auto) 0.44 K/uL (0.11-0.59); Monocytes % (auto) 5.1 %; Neutrophils # (auto) 6.27 K/uL (1.40-6.50); Neutrophils % (auto) 72.1 %; Platelet Count 382 K/uL (130-400); RDW Coefficient of Variation 15.7 % (11.5-14.5); RDW Standard Deviation 42.8 fL (36.4-46.3); Red Blood Count 5.04 M/uL (4.20-5.40)
[2024-11-20 18:17] LABS: Appearance Urine Clear (Clear); Bilirubin Urine Negative (Negative); Blood Urine Negative (Negative); Color Urine Yellow; Glucose Urine UA Negative (Negative); Ketones Urine Negative (Negative); Leukocyte Esterase Urine Negative (Negative); Nitrite Urine Negative (Negative); Protein Urine Negative (Negative); Urobilinogen Urine Negative (Negative)
[2024-11-20 18:22] LABS: Albumin Level 3.8 gm/dl (3.4-5.0); BUN Creatinine Ratio 16.7 (10-20); Bilirubin Direct 0.1 mg/dl (0-0.2); Bilirubin,Total 0.4 mg/dl (0.2-1.0); Calcium 9.4 mg/dl (8.6-10.3); Creatinine Clr Calc Pharmacy 120.6 ml/min; Globulin 3.9 gm/dl (2.5-4.0); Magnesium 1.7 mg/dl (1.7-2.4); Potassium 3.6 mmol/L (3.5-5.1); Total Protein 7.7 gm/dl (6.0-8.3)
[2024-11-20 18:27] LABS: Troponin I High Sensitivity 3.3 pg/ml (0-14)
--- NOTE | 2024-11-20 19:00 | XRay Report ---
Chest radiograph, one view History: Chest pain. Comparison: September 06, 2024. Findings: Lower cervical spine fusion hardware. Right shoulder arthroplasty changes. Cardiomediastinal silhouette is within normal limits. Pulmonary vasculature is within normal limits. Lungs are clear. Pleural spaces are within normal limits. Advanced degenerative changes left glenohumeral joint. Impression: Stable exam. No findings to indicate source for patient's symptoms. Electronically signed by Heladio Lua 11-20-2024 7:00 PM
--- NOTE | 2024-11-20 20:41 | CT Scan Report ---
EXAMINATION: CT of the abdomen and pelvis performed after the administration of IV contrast. TECHNIQUE: Helical CT images from the lung bases through the symphysis pubis were obtained with contrast. Coronal and sagittal reformatted images were generated at a workstation for further assessment. Dose reduction techniques were achieved by using automatic exposure control and/or adjustment of mA and/or kV according to patient size and/or use of iterative reconstruction technique. HISTORY: Nausea vomiting and diarrhea. COMPARISON: Noncontrast exam August 04, 2024 and contrast exam September 24, 2023. FINDINGS: Cassandra Consultant film demonstrates right hip arthroplasty changes. Lung windows demonstrate mild subsegmental atelectasis. Soft tissue windows demonstrate gastric bypass changes. Thoracic migration of the gastric pouch and fundus of the gastric viscus. Findings similar to prior study. No obstruction. Cholecystectomy changes. Subcentimeter hypodensities left kidney likely representing cysts. Findings similar to prior study. Streak artifact from right hip arthroplasty hardware limits pelvic evaluation. Uterus not identified. Likely right ovarian cyst. No adnexal mass. This does not appear to be significantly changed. Radiopaque densities within the large bowel. Question enteric contrast. Additional densities within the small bowel. Findings may represent residual radiopaque medicinal debris. Appendix is not identified. No secondary findings of appendiceal disease. Remaining solid and hollow organs of the abdomen and pelvis are within normal limits. No free air or free fluid. Enlarged left groin lymph nodes. These are likely reactive. Bone windows demonstrate advanced degenerative changes lumbar spine difficulty appreciating significant interval change when compared to most recent exam. IMPRESSION: 1. Gastric bypass changes with radiation of the gastric pouch and portions of the gastric fundus. Findings are unchanged. No obstruction. 2. No additional findings to indicate source of patient's symptoms. Please see above for details. Electronically signed by Heladio Lua 11-20-2024 8:41 PM
--- NOTE | 2024-11-20 23:00 | History & Physical Report ---
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: (5) Painful total knee replacement, left: (6) Staph aureus infection: (7) Depression: (8) Hypertension: (9) Chronic pain syndrome: (10) Neuropathy: (11) Glaucoma: (12) Excessive use of nonsteroidal anti-inflammatory drug (NSAID): Plan 69yo female with history of gastric bypass status, gastric ulcer in 2022 due to NSAIDs, chronic narcotic dependence, chronic left knee pain with loosening of TKR hardware, SVT, neuropathy, HTN, and depression presents with 2 weeks of severe diarrhea, then the development of nausea with numerous episodes of vomiting and epigastric abdominal pain over the last 3-4 days. Pain is worse with attempting to eat/drink. She has been taking loperamide and pepto for the diarrhea, and uses chronically large quantities of both aspirin and motrin for arthritic pain. The motrin has been more recent, taking in excess of 2000mg/day of motrin for the last 1-2 weeks. Over the last 48 hours she has been unable to keep most liquids/foodstuffs down. #nausea, vomiting, abdominal pain, diarrhea - -CT abd/pelvis without acute findings -LFTs wnl -lipase normal -u/a wnl -at risk of c.diff given recent antibiotic usage (clindamycin followed by doxycyline) -c.diff test was negative at [facility] on 11/10/24 -[id number] will retest for c.diff given ongoing, severe diarrhea -also send stool for stool BioFire -nausea/vomiting - could be related to a gastroenteritis/infectious process -she had a significant gastric ulcer in 2022 due to NSAIDs and she continues with large quantities of NSAIDs/aspirin; thus gastritis and/or recurrent PUD is very possible -doxycycline may have contributed to GI upset as well -abdominal pain - epigastric - worrisome for gastritis vs PUD as above -pain could also be due to infectious gastroenteritis -due to the severity of the pain will keep NPO tonight except for meds, place on IV PPI twice daily, add carafate 1gm QID -stop all NSAID and aspirin use -await c.diff testing and stool BioFire results -strongly consider GI consultation if abdominal pain worsens or persists #dehydration - -mild hyponatremia -thus, use D5NS with KCL at 100cc/hr -repeat BMP am #known loosening of left TKR hardware and ongoing left knee pain - -during prior hospitalization in September an attempt was made to perform arthrocentesis of the joint w/o success -sed rate/crp have been elevated, and there has been concern for chronic infection of this joint -just saw [facility] in [place] - they expressed concern for infection as well -in light of hot/cold chills, feeling unwell, etc will obtain blood cx's x 2 sets -will ask ortho to see her again tomorrow to reassess the knee -Dr Pierre Aceves saw her during the September admission; will ask Dr Aceves to re- eval tomorrow #diffuse ulcerative/pustular rash with culture + for MSSA - -recent clindamycin then doxycycline courses for this infection -the rash improved but did not resolve -once blood cx's are drawn start IV ancef for the MSSA #chronic pain syndrome / chronic narcotic dependence - -it appears she was weaned off morphine ER in the last 1-2 months based on the PDMP (she confirms the morphine indeed was stopped) -she has been getting prescriptions for oxycodone to use for her chronic arthritic pains -since she will initially be NPO will use morphine IV prn for severe pain #HTN - -cont metoprolol, but will the extended release form be absorbed in the setting of her gastric bypass? switch to meto tartrate? -cont losartan #neuropathy - -cont gabapentin at home doses (1800mg BID) #depression/anxiety - -cont wellbutrin and cymbalta #glaucoma - -cont typical home drops #gastric bypass status #DVT proph - -following ortho consult for the left knee - if no procedure is planned - then start chemical DVT proph at that time History of Present Illness Chief Complaint: nausea, vomiting, diarrhea, abdominal pain, left knee pain Primary Care Provider: NO PCP 69yo female with history of gastric bypass status, gastric ulcer in 2022 due to NSAIDs, chronic narcotic dependence, chronic left knee pain with loosening of TKR hardware, SVT, neuropathy, HTN, and depression presents with 2 weeks of severe diarrhea, then the development of nausea with numerous episodes of vomiting over the last 3-4 days. Denies any BRBPR or melena stool. Has had about 5 loose stools/day when the illness started. The stool has severe malodor. In addition she has had about 3-4 days of upper abdominal pain. Pain is worse with attempting to eat/drink. She has been taking loperamide and pepto for the diarrhea, and uses chronically large quantities of both aspirin and motrin for chronic arthritic pain. The motrin has been more recent, taking in excess of 2000mg/day of motrin for the last 1-2 weeks. Over the last 48 hours she has been unable to keep most liquids/foodstuffs down. She hardly had any PO intake today. On November 01 she was initiated on a course of clindamycin for a diffuse rash on her arms, legs, and neck region. A culture taken of one of the skin lesions grew methicillin-sensitive staph aureus. It appears she was changed to doxycycline on November 04 when the culture finalized. About November 06 or the diarrhea began. She was seen at [facility] for the diarrhea on November 10 and a cdiff test was dispatched. She never received the results. I called [facility] this evening and verified with their lab that the cdiff test was indeed negative. Patient denies any recent travel although she was in [place] last week seeing [facility] for her left knee. They expressed concerns that there may be chronic infection in the left knee. No sick contacts. Allergies Allergy/AdvReac Type Severity Reaction Status Date / Time bee venom protein (honey bee) Allergy Severe Anaphylaxis Verified 11/20/24 18:38 sulfamethoxazole Allergy Unknown at age 20, Verified 11/20/24 18:38 can not remember what happened trimethoprim Allergy Unknown at age 20, Verified 11/20/24 18:38 can not remember what happened aripiprazole [From Abilify] AdvReac Severe Tremors Verified 11/20/24 18:38 lactose AdvReac Intermediate MILK & ICE Verified 11/20/24 18:38 CREAM--DIARRHEA metoclopramide [From Reglan] AdvReac Intermediate TONGUE Verified 11/20/24 18:38 "TICS" Home Medications Medication Instructions Recorded Confirmed Type bupropion HCl 150 mg 24 hr tablet, 150 mg PO QAM 06/03/22 11/20/24 History extended release (Wellbutrin XL) bupropion HCl 300 mg 24 hr tablet, 300 mg PO QAM 06/03/22 11/20/24 History extended release (Wellbutrin XL) bismuth subsalicylate 262 mg 524 mg PO QID PRN Gi Upset 09/24/23 11/20/24 Histor y tablet (Pepto-Bismol) tafluprost (PF) 0.0015 % eye drops 2 drp OPB HS 09/24/23 11/20/24 History in a dropperette timolol maleate 0.5 % eye drops 1 drp OPB QAM 09/24/23 11/20/24 History epinephrine 0.3 mg/0.3 mL 0.3 mg IM DIRECTED PRN Allergic 11/29/23 11/20/24 History injection, auto-injector (EpiPen) Reaction pantoprazole 40 mg tablet,delayed 40 mg PO BID 90 days #180 tabs 06/08/24 11/20/24 Rx release loperamide 2 mg capsule (Imodium 2 mg PO Q6H PRN Diarrhea 06/17/24 11/20/24 History A-D) duloxetine 20 mg capsule,delayed 20 mg PO QAM 08/03/24 11/20/24 History release triamcinolone acetonide 0.1 % 1 applic topical BID PRN SKIN 08/03/24 11/20/24 History topical ointment IRRITATIONS gabapentin 600 mg tablet 1,800 mg PO BID 08/04/24 11/20/24 History aspirin 500 mg tablet 2,500 mg PO BID 09/06/24 11/20/24 History calcium carbonate (Tums) 300 mg PO BID 09/06/24 11/20/24 History diphenhydramine HCl 25 mg capsule 25 mg PO DAILY PRN Allergy Symptoms 09/06/24 11/20/24 History (Benadryl) sumatriptan succinate 100 mg tablet 100 mg PO DAILY PRN Migraine 10/28/24 11/20/24 Rx Headache #10 tabs losartan 25 mg tablet 25 mg PO QAM #30 tabs 11/01/24 11/20/24 Rx metoprolol succinate 25 mg 25 mg PO BID #60 tabs 11/01/24 11/20/24 Rx tablet,extended release 24 hr oxycodone 5 mg tablet 10 mg (2 x 5 mg) PO Q6H PRN pain 11/01/24 11/20/24 Rx #180 tabs sumatriptan succinate 50 mg tablet 50 mg PO DAILY PRN migraine 11/01/24 11/20/24 Rx headache #30 tabs lactase 3,000 unit tablet 3,000 unit PO TIDM PRN WITH MILK 11/20/24 11/20/24 History (Dairy-Aid) PRODUCTS NEEDED Past Med/Surg History Problem List (Updated 11/21/24 @ 00:27 by Bill Rodriguez MD) Excessive use of nonsteroidal anti-inflammatory drug (NSAID) Staph aureus infection Abdominal pain (Acute) Gastroenteritis (Acute) Intractable nausea and vomiting (Acute) 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 Weakness (Acute) Ambulatory dysfunction (Acute) Acute knee pain (Acute) History of left knee replacement Ambulatory dysfunction Palpitations Shortness of breath (Acute) Elevated troponin (Acute) Sustained SVT (Acute) Current use of aspirin (Acute) SVT (supraventricular tachycardia) (Acute) Elevated troponin (Acute) Elevated erythrocyte sedimentation rate CRP elevated Anastomotic ulcer Depression Hypertension hx Chronic pain syndrome Painful total knee replacement, left (Acute) Epigastric pain Acute encephalopathy Hypoxia Generalized pain Bilateral knee pain (Acute) Bilateral hip pain (Acute) Back pain (Acute) Rhabdomyolysis (Acute) Fall (Acute) Iron deficiency Acute alteration in mental status (Acute) Hypokalemia Painful total knee replacement Ulcer at site of surgical anastomosis following bypass of stomach Adenoma Red blood cell antibody positive, compatible PRBC difficult to obtain Vitamin D insufficiency Anxiety Osteoarthritis Neuropathy Chronic pain Anemia (Acute) Medical History Acute hypoxemic respiratory failure Altered mental status Gastric ulcer Left wrist fracture Left wrist pain Gastritis Medical marijuana use has not used several years Diarrhea Encounter for pre-operative examination Melena Acute hypotension Acute GI bleeding Hx MRSA infection [facility] years ago, "it was in her blood" Irritable bowel syndrome with constipation Hepatitis C hx - treated History of anesthesia reaction hx of waking up during procedures Bulging discs Scoliosis Spinal stenosis Glaucoma Attention deficit disorder (ADD) Migraine GI bleed admitted to [facility] 06/2022; no current problems Surgical History H/O gastric bypass History of partial hysterectomy History of bilateral breast reduction surgery History of bilateral tubal ligation Status post right foot surgery x7--hardware in place Status post left foot surgery x7-hardware in place History of open reduction and internal fixation (ORIF) procedure right ankle--hardware in place History of fusion of cervical spine C4-C5--normal ROM History of right shoulder replacement History of total right hip replacement History of total left knee replacement (TKR) x2 History of colonoscopy History of esophagogastroduodenoscopy (EGD) History of cholecystectomy History of appendectomy History of mandibular surgery 1978--wired shut History of tooth extraction History of wisdom tooth extraction History of eye surgery right---scar tissue from cataract sx History of bilateral cataract extraction History of cardiac cath 2005 [facility]---"fistula in heart between 2 valves"--no stents; no cardio, just PCP History of lung biopsy right side--benign Family History Mother Colorectal cancer Father Lung cancer Family history of esophageal cancer Brother Family history of esophageal cancer Grandfather (Maternal) Family history of esophageal cancer Other No family history of adverse response to anesthesia Social History (Updated 11/21/24 @ 00:17 by Bill Rodriguez MD) Smoking Status: Never smoker Second Hand Exposure: No; Do You Dip or Chew Tobacco: No; Hx Alcohol Use: No Hx Substance Use: No Preferred Language: Ethiopian Communication Ability: Effective Technology Officer Required: No Beliefs That Will Affect Care: None marital status: Single Current Living Situation: Alone Current Living Situation Comment: live in one story home with her two cats current occupational status: retired How many Children do You have: 1 Feels Safe at Home: Yes Assistive Devices: Cane and Walker Review of Systems 2 Review of Systems: gen - no fevers, but has had hold/cold chills for 2 weeks; poor po intake last week eyes - no visual change HENT - denies sores in nose or mouth; no nasal congestion CV - no chest pain pulm - cough for several weeks, largely dry; no dyspnea GI - nausea, vomiting, diarrhea, abd pain; no BRBPR or melena - no dysuria musculo - severe left knee pain, severe back pain; this limits ambulation; walks very little at home; uses wheelchair neuro - some headaches last 1-2 weeks skin - pruritic rash for several weeks on arms, legs, face, neck, etc endo - no diabetes Physical Exam Physical Exam: gen - looks weak & tired, when attempting to move she has pain in her left knee; she also holds her stomach at times due to pain eyes - PERRL HENT - MM dry, no thrush or lesions; nose clear, no lesions neck - no JVD, no lymph nodes, no obvious goiter heart - RRR, s1 s2, 1/6 STEPHANIE LSB lungs - focal dry rales R base, cleared with taking large breaths; otherwise CTA b/l with good air movement abd - tender epigastric region, no HSM; no peritoneal signs, BS+, ND, large scar midline ext - no peripheral edema of legs/feet vascular - pulses b/l feet 2+ neuro - no facial droop, strength 5/5 x 4 exts, DTRs upper ext 1+ b/l musculo - left knee - mild effusion, warm to touch; tender to palpation and tender with active/passive ROM; no redness; vertical scar over the joint present skin - diffuse rash consisting of small ulcers, ulcers with crust, and papules/pustules on arms, legs, neck, face, and minimal on abdomen; hands/feet spared, no burrowing psych - awake/alert Results & Data Results & Data Vital Signs (Past 12 Hours) Vital Signs Temp Pulse Resp BP Pulse Ox O2 Del Method 11/20/24 22:41 78 18 153/86 H 99 11/20/24 21:37 72 11/20/24 20:44 71 20 153/86 H 98 11/20/24 19:25 67 18 150/79 H 95 11/20/24 17:56 36.6 C 71 18 167/78 H 95 Room Air 11/20/24 17:48 73 Laboratory Results Laboratory Results - last 24 hr 11/20/24 17:51 WBC 8.70 RBC 5.04 Hgb 12.8 Hct 38.5 MCV 76.4 L MCH 25.4 MCHC 33.2 RDW Std Deviation 42.8 RDW Coeff of Faizan 15.7 H Plt Count 382 MPV 8.6 L Immature Gran % (Auto) 0.3 Neut % (Auto) 72.1 Lymph % (Auto) 21.5 Starr % (Auto) 5.1 Eos % (Auto) 0.7 Baso % (Auto) 0.3 Neut # (Auto) 6.27 Lymph # (Auto) 1.87 Starr # (Auto) 0.44 Eos # (Auto) 0.06 Baso # (Auto) 0.03 Immature Gran # (Auto) 0.03 ESR 55 H Sodium 134 L Potassium 3.6 Chloride 100 Carbon Dioxide 24 Anion Gap 10 BUN 8 Creatinine 0.48 L Est Cr Clr Drug Dosing 120.6 eGFR 103.11 BUN/Creatinine Ratio 16.7 Glucose 108 H Calcium 9.4 Magnesium 1.7 Total Bilirubin 0.4 Direct Bilirubin 0.1 AST 15 ALT 9 Alkaline Phosphatase 85 Troponin I High Sens 3.3 C-Reactive Protein 0.52 H Total Protein 7.7 Albumin 3.8 Globulin 3.9 Albumin/Globulin Ratio 1.0 Lipase 9 L Urine Color Yellow Urine Appearance Clear Urine pH 6.0 Ur Specific Leonard 1.010 Urine Protein Negative Urine Glucose (UA) Negative Urine Ketones Negative Urine Blood Negative Urine Nitrite Negative Urine Bilirubin Negative Urine Urobilinogen Negative Ur Leukocyte Esterase Negative Urine Comment Diagnostic Findings Chest X-Ray 11/20/24 17:41 Chest radiograph, one view History: Chest pain. Comparison: September 06, 2024. Findings: Lower cervical spine fusion hardware. Right shoulder arthroplasty changes. Cardiomediastinal silhouette is within normal limits. Pulmonary vasculature is within normal limits. Lungs are clear. Pleural spaces are within normal limits. Advanced degenerative changes left glenohumeral joint. Impression: Stable exam. No findings to indicate source for patient's symptoms. Electronically signed by Heladio Lua 11-20-2024 7:00 PM Abdomen/Pelvis CT 11/20/24 18:45 EXAMINATION: CT of the abdomen and pelvis performed after the administration of IV contrast. TECHNIQUE: Helical CT images from the lung bases through the symphysis pubis were obtained with contrast. Coronal and sagittal reformatted images were generated at a workstation for further assessment. Dose reduction techniques were achieved by using automatic exposure control and/or adjustment of mA and/or kV according to patient size and/or use of iterative reconstruction technique. HISTORY: Nausea vomiting and diarrhea. COMPARISON: Noncontrast exam August 04, 2024 and contrast exam September 24, 2023. FINDINGS: Computer Systems Analyst film demonstrates right hip arthroplasty changes. Lung windows demonstrate mild subsegmental atelectasis. Soft tissue windows demonstrate gastric bypass changes. Thoracic migration of the gastric pouch and fundus of the gastric viscus. Findings similar to prior study. No obstruction. Cholecystectomy changes. Subcentimeter hypodensities left kidney likely representing cysts. Findings similar to prior study. Streak artifact from right hip arthroplasty hardware limits pelvic evaluation. Uterus not identified. Likely right ovarian cyst. No adnexal mass. This does not appear to be significantly changed. Radiopaque densities within the large bowel. Question enteric contrast. Additional densities within the small bowel. Findings may represent residual radiopaque medicinal debris. Appendix is not identified. No secondary findings of appendiceal disease. Remaining solid and hollow organs of the abdomen and pelvis are within normal limits. No free air or free fluid. Enlarged left groin lymph nodes. These are likely reactive. Bone windows demonstrate advanced degenerative changes lumbar spine difficulty appreciating significant interval change when compared to most recent exam. IMPRESSION: 1. Gastric bypass changes with radiation of the gastric pouch and portions of the gastric fundus. Findings are unchanged. No obstruction. 2. No additional findings to indicate source of patient's symptoms. Please see above for details. Electronically signed by Heladio Lua 11-20-2024 8:41 PM EKG - my reading - NSR, no ST changes; large R wave lead V2 Code Status & VTE Plan Code Status full code, but would not want prolonged intubation/mech ventilation VTE Prophylaxis Plan VTE Prophylaxis will be ordered: Yes PG Care Time/CCT Total # of Minutes Spent Total Time Spent with Patient: Total time spent is greater than 50% in coordination of care (as documented) at patient's floor/unit and/or counseling patient: Coding Level of Care Code 96882 INT INP/OBS CARE 3/75MIN Diagnoses Intractable nausea and vomiting R11.2 Abdominal pain R10.84 Abdominal location: generalized Diarrhea R19.7 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 T84.033A Painful total knee replacement, left T84.84XA; Z96.652 Encounter type: initial encounter Staph aureus infection A49.01 Depression F32.9 Essential hypertension I10 Hypertension type: essential hypertension Chronic pain syndrome G89.4 Neuropathy G62.9 Glaucoma H40.9 Excessive use of nonsteroidal anti-inflammatory drug (NSAID) F19.90 (2) Abdominal pain Abdominal location: generalized Qualified Code(s): R10.84 - Generalized abdominal pain (5) Painful total knee replacement, left Encounter type: initial encounter Qualified Code(s): T84.84XA - Pain due to internal orthopedic prosthetic devices, implants and grafts, initial encounter; Z96.652 - Presence of left artificial knee joint (8) Hypertension Hypertension type: essential hypertension Qualified Code(s): I10 - Essential (primary) hypertension
[2024-11-20 23:29] LABS: C Reactive Protein 0.52 mg/dl (0-0.5)
--- NOTE | 2024-11-21 12:16 | Hospitalist Progress Note ---
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: (5) Painful total knee replacement, left: (6) Staph aureus infection: (7) Depression: (8) Hypertension: (9) Chronic pain syndrome: (10) Neuropathy: (11) Glaucoma: (12) Excessive use of nonsteroidal anti-inflammatory drug (NSAID): Plan 69yo female with history of gastric bypass status, gastric ulcer in 2022 due to NSAIDs, chronic narcotic dependence, chronic left knee pain with loosening of TKR hardware, SVT, neuropathy, HTN, and depression presents with 2 weeks of severe diarrhea, then the development of nausea with numerous episodes of vomiting and epigastric abdominal pain over the last 3-4 days. Pain is worse with meals. She takes supratherapeutic doses of ibuprofen up to 2000 mg oncetwice a day, and 2500 mg of aspirin up to oncetwice a day despite history of gastric bypass and gastric ulcers. #N/V/D, suspected gastritis. DDx includes C. diff, viral gastritis -CT abd/pelvis without acute findings -LFTs wnl.lipase normal -u/a wnl C. difficile testing pending. Recently negative at [facility] 11/10/2024 Differential includes gastroenteritis/infectious process, and gastritis/PUD with extremely high NSAID use. Additionally with recent doxycycline use which may be contributing to gastritis Continue PPI IV twice daily therapy, Carafate. Stop all NSAIDs Hemoglobin is fortunately normal and she is not tachycardic or hypotensive. If any signs of acute bleeding develop then consult GI for scope, for now we will continue medical management with IV PPI therapy Hemoglobin normal, no tachycardia or hypotension. Will advance to clears. If worsening clinically or hemoglobin drops make strict n.p.o. at that time #known loosening of left TKR hardware and ongoing left knee pain - -during prior hospitalization in September an attempt was made to perform arthrocentesis of the joint w/o success -sed rate/crp have been elevated, and there has been concern for chronic infection of this joint -just saw Donna Rodriguez in [place] - they expressed concern for infection as well Blood cultures pending x 2. Ortho consulted for reevaluation Cefazolin continued Cellulitis, MSSA with suspected insect/flea involvement Patient with past culture positive for MSSA Patient reports that when she awakens in her recliner she has noticed tiny black spots and areas of bites/pustules which sometimes "fly off ", but are very tiny in size and difficult to tell if they are bugs. He does have cats in the home. She has multiple areas suspicious for bites on her right arm, and leg. Suspect she may be having flea/insect bites and occasional superimposed pustular reaction versus cellulitis Contact precautions No track manning in webspaces to suggest scabies. Suspect fleas based on description, will place patient in isolation for now Overlying pustules and erythema have resolved with Keflex which is continued as noted Patient will contact professional services for evaluation of home environment and pest control as appropriate #chronic pain syndrome / chronic narcotic dependence - -it appears she was weaned off morphine ER in the last 1-2 months based on the PDMP (she confirms the morphine indeed was stopped) -she has been getting prescriptions for oxycodone to use for her chronic a rthritic pains Home oxycodone resumed. If patient needs to be made strict n.p.o. then switch to multimodal pain control with scaled morphine #HTN - -cont metoprolol -cont losartan #neuropathy - -cont gabapentin at home doses (1800mg BID) #depression/anxiety - -cont wellbutrin and cymbalta #glaucoma - -cont typical home drops #gastric bypass status Avoid all NSAIDs Continue to monitor for bleeding, if hemoglobin drops or clinical bleeding develops consult GI #DVT proph - -following ortho consult for the left knee - if no procedure is planned and hgb stable - then start lovenox Admission and Anticipated Discharge Date Admission Date: November 20, 2024 Subjective Milagros seen at the bedside this morning. Initially had expressed some frustration due to noise in the room and had expressed a nursing want to leave [facility]. Following provider visit discussing plan of various treatment she expresses appreciation and willingness to engage in plan, noting was more just frustrated with the hospital environment. She reports that she has had diarrhea 510 bowel movements per day loose/liquid for several weeks. She did not have any bowel movements overnight, last was yesterday but notes she has not been eating anything. She is not sure if her bowel movements have been bloody/melanic, she reports she does use Pepto-Bismol which causes them to be dark at times. She is using a very large amount of NSAIDs, she endorses taking 2500 mg of aspirin twice daily in addition to ibuprofen 200 mg tablets up to 10 tablets twice daily for pain. Counseled that any NSAID use is high risk given her history of Manolo-en-Y bypass, and certainly her doses are far supratherapeutic and are much more likely to cause her significant harm or potentially life-threatening harm or she develop a perforated ulcer. Agreeable to hold these for now, although notes that narcotics have poorly controlled her pain in the past. Ultimately is planning on having left hardware revised with [facility] Physical Exam Physical Exam: General: A&Ox3. NAD. Cooperative. HEENT: Atraumatic, normocephalic. Pulm: CTAB A&P. -wheezes, -rales, -rhonchi. Symmetrical chest rise. No increase in work of breathing. No respiratory distress. Cardiac: RRR, -mrg. Radial pulses intact and symmetrical. Abdominal: Mildly tender in the epigastrium. No rigidity. No rebound/guarding Extremities: Warm, dry. Left knee is with proximal tibial tenderness to pal pation, no overlying demarcated erythema. Pain on attempted flexion/extension. Intact/healed surgical incision. Results & Data Results & Data Vital Signs (Past 12 Hours) Vital Signs Temp Pulse Pulse Resp BP BP Pulse Ox 11/21/24 12:04 36.8 C 56 L 18 165/88 H 96 11/21/24 09:20 64 11/21/24 08:43 36.7 C 58 L 18 154/75 H 95 11/21/24 07:39 61 11/21/24 03:56 36.6 C 63 16 148/74 H 95 11/21/24 00:15 36.8 C 16 171/74 H 94 11/21/24 00:11 71 O2 Del Method 11/21/24 12:04 Room Air 11/21/24 09:20 11/21/24 08:43 Room Air 11/21/24 07:39 11/21/24 03:56 Room Air 11/21/24 00:15 Room Air 11/21/24 00:11 PG Care Time/CCT Total # of Minutes Spent Total Time Spent with Patient: Total time spent is greater than 50% in coordination of care (as documented) at patient's floor/unit and/or counseling patient: Coding Level of Care Code 52628 SUB INP/OBS CARE 3/50MIN Diagnoses Intractable nausea and vomiting R11.2 Abdominal pain R10.84 Abdominal location: generalized Diarrhea R19.7 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 T84.033A Painful total knee replacement, left T84.84XA; Z96.652 Encounter type: initial encounter Staph aureus infection A49.01 Depression F32.9 Essential hypertension I10 Hypertension type: essential hypertension Chronic pain syndrome G89.4 Neuropathy G62.9 Glaucoma H40.9 Excessive use of nonsteroidal anti-inflammatory drug (NSAID) F19.90 (2) Abdominal pain Abdominal location: generalized Qualified Code(s): R10.84 - Generalized abdominal pain (5) Painful total knee replacement, left Encounter type: initial encounter Qualified Code(s): T84.84XA - Pain due to internal orthopedic prosthetic devices, implants and grafts, initial encounter; Z96.652 - Presence of left artificial knee joint (8) Hypertension Hypertension type: essential hypertension Qualified Code(s): I10 - Essential (primary) hypertension
--- NOTE | 2024-11-21 14:59 | Orthopedic Consultation ---
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 Recommend continued follow-up with [facility] orthopedic team, scheduled for appointment in November for aspiration prior to revision surgery * Minimal effusion on exam, very slightly elevated ESR and CRP, do not recommend aspiration at this time * Disposition: TBD * Daily treatment: Physical Therapy/ Occupational Therapy per protocol * Weight bearing status: As tolerated * Pain control * Remainder care per primary team * Ortho team will follow peripherally, again recommend close follow-up with vascular team as scheduled. Please contact with further questions. History of Present Illness Reason for Consultation: .Left knee pain Requesting Physician: . Attending Physician: Ellis Villarreal MD . .Patient is a 69y/o female with left knee pain. PMH including HTN, history of SVT, vitamin D deficiency, GERD, history of gastric bypass, hepatitis C, chronic left knee pain, chronic low back pain, chronic pain syndrome, POAG, and depression. Patient is known to [facility] Ortho team,recently seen in consult in June 2024 secondary to chronic left knee pain, referred to tertiary center for revision specialist. Since then she has been established with Donna, seen last week and has an appointment again in November for revision surgery planning. Currently admitted to hospital medicine team with intractable nausea vomiting and ongoing GI symptoms for approximately 2 weeks, persistent left knee pain. Recent labs demonstrate a slightly elevated ESR and CRP, no leukocytosis. Orthopedics consulted for evaluation and management recommendations. Lying comfortably in bed, no acute distress. Endorses at time of exam patient chronic pain of her left knee that is currently at her baseline, states that she has had no significant change in pain or function over the past several weeks to months. Pain with ambulation, movement. Otherwise denies recent changes in swelling, drainage, lower extremity erythema. Allergies Allergy/AdvReac Type Severity Reaction Status Date / Time bee venom protein (honey bee) Allergy Severe Anaphylaxis Verified 11/20/24 18:38 sulfamethoxazole Allergy Unknown at age 20, Verified 11/20/24 18:38 can not remember what happened trimethoprim Allergy Unknown at age 20, Verified 11/20/24 18:38 can not remember what happened aripiprazole [From Abilify] AdvReac Severe Tremors Verified 11/20/24 18:38 lactose AdvReac Intermediate MILK & ICE Verified 11/20/24 18:38 CREAM--DIARRHEA metoclopramide [From Reglan] AdvReac Intermediate TONGUE Verified 11/20/24 18:38 "TICS" Home Medications Medication Instructions Recorded Confirmed Type bupropion HCl 150 mg 24 hr tablet, 150 mg PO QAM 06/03/22 11/20/24 History extended release (Wellbutrin XL) bupropion HCl 300 mg 24 hr tablet, 300 mg PO QAM 06/03/22 11/20/24 History extended release (Wellbutrin XL) bismuth subsalicylate 262 mg 524 mg PO QID PRN Gi Upset 09/24/23 11/20/24 History tablet (Pepto-Bismol) tafluprost (PF) 0.0015 % eye drops 2 drp OPB HS 09/24/23 11/20/24 History in a dropperette timolol maleate 0.5 % eye drops 1 drp OPB QAM 09/24/23 11/20/24 History epinephrine 0.3 mg/0.3 mL 0.3 mg IM DIRECTED PRN Allergic 11/29/23 11/20/24 History injection, auto-injector (EpiPen) Reaction pantoprazole 40 mg tablet,delayed 40 mg PO BID 90 days #180 tabs 06/08/24 11/20/24 Rx release loperamide 2 mg capsule (Imodium 2 mg PO Q6H PRN Diarrhea 06/17/24 11/20/24 History A-D) duloxetine 20 mg capsule,delayed 20 mg PO QAM 08/03/24 11/20/24 History release triamcinolone acetonide 0.1 % 1 applic topical BID PRN SKIN 08/03/24 11/20/24 History topical ointment IRRITATIONS gabapentin 600 mg tablet 1,800 mg PO BID 08/04/24 11/20/24 History aspirin 500 mg tablet 2,500 mg PO BID 09/06/24 11/20/24 History calcium carbonate (Tums) 300 mg PO BID 09/06/24 11/20/24 History diphenhydramine HCl 25 mg capsule 25 mg PO DAILY PRN Allergy Symptoms 09/06/24 11/20/24 History (Benadryl) sumatriptan succinate 100 mg tablet 100 mg PO DAILY PRN Migraine 05/30/25 06/22/25 Rx Headache #10 tabs losartan 25 mg tablet 25 mg PO QAM #30 tabs 11/01/24 11/20/24 Rx metoprolol succinate 25 mg 25 mg PO BID #60 tabs 11/01/24 11/20/24 Rx tablet,extended release 24 hr oxycodone 5 mg tablet 10 mg (2 x 5 mg) PO Q6H PRN pain 11/01/24 11/20/24 Rx #180 tabs sumatriptan succinate 50 mg tablet 50 mg PO DAILY PRN migraine 11/01/24 11/20/24 Rx headache #30 tabs lactase 3,000 unit tablet 3,000 unit PO TIDM PRN WITH MILK 11/20/24 11/20/24 History (Dairy-Aid) PRODUCTS NEEDED Past Med/Surg History Problem List (Updated 11/21/24 @ 00:27 by Bill Rodriguez MD) Excessive use of nonsteroidal anti-inflammatory drug (NSAID) Staph aureus infection Abdominal pain (Acute) Gastroenteritis (Acute) Intractable nausea and vomiting (Acute) 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 Weakness (Acute) Ambulatory dysfunction (Acute) Acute knee pain (Acute) History of left knee replacement Ambulatory dysfunction Palpitations Shortness of breath (Acute) Elevated troponin (Acute) Sustained SVT (Acute) Current use of aspirin (Acute) SVT (supraventricular tachycardia) (Acute) Elevated troponin (Acute) Elevated erythrocyte sedimentation rate CRP elevated Anastomotic ulcer Depression Hypertension hx Chronic pain syndrome Painful total knee replacement, left (Acute) Epigastric pain Acute encephalopathy Hypoxia Generalized pain Bilateral knee pain (Acute) Bilateral hip pain (Acute) Back pain (Acute) Rhabdomyolysis (Acute) Fall (Acute) Iron deficiency Acute alteration in mental status (Acute) Hypokalemia Painful total knee replacement Ulcer at site of surgical anastomosis following bypass of stomach Adenoma Red blood cell antibody positive, compatible PRBC difficult to obtain Vitamin D insufficiency Anxiety Osteoarthritis Neuropathy Chronic pain Anemia (Acute) Medical History Acute hypoxemic respiratory failure Altered mental status Gastric ulcer Left wrist fracture Left wrist pain Gastritis Medical marijuana use has not used several years Diarrhea Encounter for pre-operative examination Melena Acute hypotension Acute GI bleeding Hx MRSA infection [facility] years ago, "it was in her blood" Irritable bowel syndrome with constipation Hepatitis C hx - treated History of anesthesia reaction hx of waking up during procedures Bulging discs Scoliosis Spinal stenosis Glaucoma Attention deficit disorder (ADD) Migraine GI bleed admitted to [facility] 06/2022; no current problems Surgical History H/O gastric bypass History of partial hysterectomy History of bilateral breast reduction surgery History of bilateral tubal ligation Status post right foot surgery x7--hardware in place Status post left foot surgery x7-hardware in place History of open reduction and internal fixation (ORIF) procedure right ankle--hardware in place History of fusion of cervical spine C4-C5--normal ROM History of right shoulder replacement History of total right hip replacement History of total left knee replacement (TKR) x2 History of colonoscopy History of esophagogastroduodenoscopy (EGD) History of cholecystectomy History of appendectomy History of mandibular surgery 1978--wired shut History of tooth extraction History of wisdom tooth extraction History of eye surgery right---scar tissue from cataract sx History of bilateral cataract extraction History of cardiac cath 2005 [facility]---"fistula in heart between 2 valves"--no stents; no cardio, just PCP History of lung biopsy right side--benign Family History Mother Colorectal cancer Father Lung cancer Family history of esophageal cancer Brother Family history of esophageal cancer Grandfather (Maternal) Family history of esophageal cancer Other No family history of adverse response to anesthesia Social History (Updated 11/21/24 @ 00:17 by Bill Rodriguez MD) Smoking Status: Never smoker Second Hand Exposure: No; Do You Dip or Chew Tobacco: No; Hx Alcohol Use: No Hx Substance Use: No Preferred Language: Belgian Communication Ability: Effective Streetsweeper Operator Required: No Beliefs That Will Affect Care: None marital status: Single Current Living Situation: Alone Current Living Situation Comment: live in one story home with her two cats current occupational status: retired How many Children do You have: 1 Feels Safe at Home: Yes Assistive Devices: Wheelchair Review of Systems All systems reviewed & are unremarkable except as noted in HPI & below. Physical Exam . * General: Alert and oriented, no acute distress * Constitutional: well-developed, well-nourished. * Respiratory: Normal respiratory effort, no distress * Gastrointestinal: No tenderness to palpation, no rigidity or guarding. * Skin: No rash or lesion. * Neurologic: Grossly normal * Musculoskeletal: Left lower extremity held in a slightly flexed position. Surgical incision CDI, open wounds or drainage. Chronic. Induration and soft tissue swelling around the left knee region. Otherwise no obvious deformity or overlying skin changes left lower extremity. Diffuse TTP patellofemoral region, medial and lateral knee joints, distal thigh. ROM knee not assessed secondary to pain. AROM foot/ankle intact. Sensation intact plantar/dorsal foot. Brisk capillary refill. Results & Data Results & Data Laboratory Results . 11/21/24 00:15 Aerobic Blood Culture - Pending Blood Anaerobic Blood Culture - Pending 11/21/24 00:21 Aerobic Blood Culture - Pending Blood Anaerobic Blood Culture - Pending 11/20/24 17:51 WBC 8.70 RBC 5.04 Hgb 12.8 Hct 38.5 MCV 76.4 L MCH 25.4 MCHC 33.2 RDW Std Deviation 42.8 RDW Coeff of Faizan 15.7 H Plt Count 382 MPV 8.6 L Immature Gran % (Auto) 0.3 Neut % (Auto) 72.1 Lymph % (Auto) 21.5 Kerr % (Auto) 5.1 Eos % (Auto) 0.7 Baso % (Auto) 0.3 Neut # (Auto) 6.27 Lymph # (Auto) 1.87 Kerr # (Auto) 0.44 Eos # (Auto) 0.06 Baso # (Auto) 0.03 Immature Gran # (Auto) 0.03 ESR 55 H Sodium 134 L Potassium 3.6 Chloride 100 Carbon Dioxide 24 Anion Gap 10 BUN 8 Creatinine 0.48 L Est Cr Clr Drug Dosing 120.6 eGFR 103.11 BUN/Creatinine Ratio 16.7 Glucose 108 H Calcium 9.4 Magnesium 1.7 Total Bilirubin 0.4 Direct Bilirubin 0.1 AST 15 ALT 9 Alkaline Phosphatase 85 Troponin I High Sens 3.3 C-Reactive Protein 0.52 H Total Protein 7.7 Albumin 3.8 Globulin 3.9 Albumin/Globulin Ratio 1.0 Lipase 9 L Urine Color Yellow Urine Appearance Clear Urine pH 6.0 Ur Specific Lincoln 1.010 Urine Protein Negative Urine Glucose (UA) Negative Urine Ketones Negative Urine Blood Negative Urine Nitrite Negative Urine Bilirubin Negative Urine Urobilinogen Negative Ur Leukocyte Esterase Negative Urine Comment Diagnostic Findings . Chest X-Ray 11/20/24 17:41 Chest radiograph, one view History: Chest pain. Comparison: September 06, 2024. Findings: Lower cervical spine fusion hardware. Right shoulder arthroplasty changes. Cardiomediastinal silhouette is within normal limits. Pulmonary vasculature is within normal limits. Lungs are clear. Pleural spaces are within normal limits. Advanced degenerative changes left glenohumeral joint. Impression: Stable exam. No findings to indicate source for patient's symptoms. Electronically signed by Heladio Lua 11-20-2024 7:00 PM Abdomen/Pelvis CT 11/20/24 18:45 EXAMINATION: CT of the abdomen and pelvis performed after the administration of IV contrast. TECHNIQUE: Helical CT images from the lung bases through the symphysis pubis were obtained with contrast. Coronal and sagittal reformatted images were generated at a workstation for further assessment. Dose reduction techniques were achieved by using automatic exposure control and/or adjustment of mA and/or kV according to patient size and/or use of iterative reconstruction technique. HISTORY: Nausea vomiting and diarrhea. COMPARISON: Noncontrast exam August 04, 2024 and contrast exam September 24, 2023. FINDINGS: Desktop Support Manager film demonstrates right hip arthroplasty changes. Lung windows demonstrate mild subsegmental atelectasis. Soft tissue windows demonstrate gastric bypass changes. Thoracic migration of the gastric pouch and fundus of the gastric viscus. Findings similar to prior study. No obstruction. Cholecystectomy changes. Subcentimeter hypodensities left kidney likely representing cysts. Findings similar to prior study. Streak artifact from right hip arthroplasty hardware limits pelvic evaluation. Uterus not identified. Likely right ovarian cyst. No adnexal mass. This does not appear to be significantly changed. Radiopaque densities within the large bowel. Question enteric contrast. Additional densities within the small bowel. Findings may represent residual radiopaque medicinal debris. Appendix is not identified. No secondary findings of appendiceal disease. Remaining solid and hollow organs of the abdomen and pelvis are within normal limits. No free air or free fluid. Enlarged left groin lymph nodes. These are likely reactive. Bone windows demonstrate advanced degenerative changes lumbar spine difficulty appreciating significant interval change when compared to most recent exam. IMPRESSION: 1. Gastric bypass changes with radiation of the gastric pouch and portions of the gastric fundus. Findings are unchanged. No obstruction. 2. No additional findings to indicate source of patient's symptoms. Please see above for details. 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
[2024-11-21 15:14] LABS: C. diff 027-NAP1-BI NEGATIVE; Cdiff Toxin B Gene (2yr or >) Negative Cdiff Gene (Neg)
[2024-11-21 15:48] LABS: Adenovirus F 40/41 PCR Not Detected (NotDetected); Astrovirus PCR Not Detected (NotDetected); Campylobacter PCR Not Detected (NotDetected); Cryptosporidium PCR Not Detected (NotDetected); Cyclospora cayetanensis PCR Not Detected (NotDetected); Entamoeba histolytica PCR Not Detected (NotDetected); Enteroaggregative E.coli(EAEC) Not Detected (NotDetected); Enteropathogenic E.coli (EPEC) Not Detected (NotDetected); Enterotoxigenic E.coli (ETEC) Not Detected (NotDetected); Giardia lamblia PCR Not Detected (NotDetected); Norovirus GI/GII PCR Not Detected (NotDetected); Plesiomonas shigelloides PCR Not Detected (NotDetected); Rotavirus A PCR Not Detected (NotDetected); Salmonella PCR Not Detected (NotDetected); Sapovirus PCR Not Detected (NotDetected); Shiga-like Toxin E.coli (STEC) Not Detected (NotDetected); Shigella/Enteroinvasive E.coli Not Detected (NotDetected); Vibrio cholerae PCR Not Detected (NotDetected); Vibrio species PCR Not Detected (NotDetected); Yersinia enterocolitica PCR Not Detected (NotDetected)
[2024-11-22 07:01] LABS: Basophils # (auto) 0.02 K/uL (0.00-0.20); Basophils % (auto) 0.4 %; Eosinophils # (auto) 0.16 K/uL (0.00-0.50); Eosinophils % (auto) 3.5 %; Hematocrit (blood only) 36.1 % (37.0-47.0); Hemoglobin 11.5 g/dl (12.0-16.0); Immature Granulocytes # (auto) 0.01 K/uL (0.01-0.20); Immature Granulocytes % (auto) 0.2 %; Lymphocytes # (auto) 1.74 K/uL (1.20-3.40); Lymphocytes % (auto) 37.9 %; Mean Corpuscular Hemoglobin 25.3 pg (25.0-34.0); Mean Corpuscular Hgb Conc 31.9 g/dL (32.0-36.0); Mean Corpuscular Volume 79.3 fL (80.0-100.0); Mean Platelet Volume 8.8 fL (9.4-12.4); Monocytes % (auto) 13.1 %; Neutrophils # (auto) 2.06 K/uL (1.40-6.50); Neutrophils % (auto) 44.9 %; Platelet Count 286 K/uL (130-400); RDW Coefficient of Variation 15.8 % (11.5-14.5); RDW Standard Deviation 45.1 fL (36.4-46.3); Red Blood Count 4.55 M/uL (4.20-5.40); White Blood Count 4.59 K/ul (4.8-10.8)
[2024-11-22 07:28] LABS: Calcium 8.8 mg/dl (8.6-10.3); Potassium 3.6 mmol/L (3.5-5.1)
[2024-11-22 07:33] LABS: BUN Creatinine Ratio 6.8 (10-20); Creatinine Clr Calc Pharmacy 126.3 ml/min
--- NOTE | 2024-11-22 11:20 | Hospitalist Progress Note ---
Date of Service November 22, 2024 Assessment & Plan (1) Intractable nausea and vomiting: Plan: Differential includes gastroenteritis/infectious process, and gastritis/PUD with extremely high NSAID use. Additionally with recent doxycycline use which may be contributing to gastritis Continue PPI IV twice daily therapy, Carafate. 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: Plan: -ortho consult appreciated -no current intervention (5) Staph aureus infection: Plan: Overlying pustules and erythema have resolved with Keflex which is continued as noted (6) Depression: Plan: -cont wellbutrin and cymbalta (7) Hypertension: Plan: cont metoprolol -cont losartan (8) Chronic pain syndrome: Plan: -oxycodone (9) Neuropathy: Plan: -cont gabapentin at home doses (1800mg BID) Plan 69yo female with history of gastric bypass status, gastric ulcer in 2022 due to NSAIDs, chronic narcotic dependence, chronic left knee pain with loosening of TKR hardware, SVT, neuropathy, HTN, and depression presents with 2 weeks of severe diarrhea, then the development of nausea with numerous episodes of vomiting and epigastric abdominal pain over the last 3-4 days. Pain is worse with meals. She takes supratherapeutic doses of ibuprofen up to 2000 mg oncetwice a day, and 2500 mg of aspirin up to oncetwice a day despite history of gastric bypass and gastric ulcers. Admission and Anticipated Discharge Date Admission Date: November 20, 2024 Subjective No events overnight. Pt still complaining of nasuea, unable to keep anything down. Review of Systems Review of Systems: CONST: Negative for fever, body aches and chills. HENT: Negative for neck pain/stiffness, headache, congestion, sore throat, swelling. EYES: Negative for discharge/pain or vision changes. RESP: Negative for cough/hemoptysis and shortness of breath. CV: Negative chest pain, difficulty breathing, palpitations. ABD: Negative pain, nausea, vomiting. : Negative increase frequency, dysuria, blood in urine or stool. MUSC: Negative for muscle aches, edema. SKIN: Negative rash, lesions/sores. NEURO: Negative headache, dizziness, weakness. Physical Exam Physical Exam: GENERAL APPEARANCE NAD, activity normal for age, well developed/ well nourished, no cyanosis, pallor, or diaphoresis. EYES lids/conjunctiva normal. EARS/NOSE/THROAT Mucous membranes moist, nares normal, lips/teeth normal uvula midline without oral pharyngeal erythema, exudate or swelling TMs normal bilaterally. No lymphangitis/lymphedema. HEAD/NECK normocephalic atraumatic, no facial trauma, neck is supple. RESPIRATORY respiratory effort normal, speaks in full sentences, no tripod position, no accessory muscle use. Lungs clear to auscultation without rhonchi, wheezes, rales CARDIAC Regular rate and rhythm, no edema. ABDOMINAL Soft, ND/NT. No evidence of fluid wave. No pulsatile masses on exam, rebound tenderness, Bateman sign or pain over Mcburney's point. MUSCLES/EXTREMITIES No abnormal range of motion, no swelling. SKIN Warm, pink and dry. No rashes, dermatoses, petechiae or lesions. NEUROLOGICAL Speech is clear and appropriate. Normal level of consciousness. Gait and coordination are normal. 5/5 strength in all extremities. PSYCH Normal mood and affect. Judgement/competence is appropriate Results & Data Results & Data Vital Signs (Past 12 Hours) Vital Signs Temp Pulse Pulse Resp BP Pulse Ox O2 Del Method 11/22/24 10:20 57 L 11/22/24 08:24 Room Air 11/22/24 07:45 36.4 C L 64 18 175/85 H 97 Room Air 11/22/24 04:17 36.6 C 56 L 16 152/79 H 95 Room Air 11/21/24 23:28 36.6 C 60 16 162/84 H 95 Room Air PG Care Time/CCT Total # of Minutes Spent Total Time Spent with Patient: Total time spent is greater than 50% in coordination of care (as documented) at patient's floor/unit and/or counseling patient: Coding Level of Care Code 64914 SUB INP/OBS CARE 2/35MIN Diagnoses Intractable nausea and vomiting R11.2 Abdominal pain R10.84 Abdominal location: generalized Diarrhea R19.7 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
--- NOTE | 2024-11-22 11:52 | Gastrointestinal Consultation ---
Date of Consultation November 22, 2024 Assessment & Plan (1) Excessive use of nonsteroidal anti-inflammatory drug (NSAID): (2) Abdominal pain: Plan Patient is admitted with complaints of diarrhea, nausea, vomiting, and abdominal pain over the past month in the setting of chronic nsaid use and recent antibiotic use for a skin infection. She has a history of gastric ulcer that needed to be injected and clipped in 2022. She is requesting an EGD to further evaluate. - set up EGD for tomorrow to further evaluate. - continue with protonix 40mg bid and carafate 1 gm qid. - we discussed avoidance of nsaids. she seems unwilling to do so. Supervising Physician Co-Signing Physician Notes I agree with the advanced practitioner's documentation above regarding review of case, evaluation, and assessment and plan unless outlined below. This was a shared visit in which I was present during all aspects of the case including evaluation, discussion of case, review of data and test results, interpretation of data and test results, complex medical decision making, coordination of care, communication with patient and family and direction of ancillary services. The patient has nausea and vomiting in the setting of significant NSAID use and a history of peptic ulcer disease. Upper endoscopy is indicated to rule out active peptic ulcer disease. Alternative methods of pain control would be beneficial including local injection to help the patient reduce her overall NSAID use. In the meantime thorough gastroprotection with proton pump inhibitor twice daily is advised. History of Present Illness Reason for Consultation: Mitchell Esteban MD Requesting Physician: PUD ? EGD Attending Physician: Mitchell Esteban MD History of Present Illness Patient is a 69 year old female with a history of gastric bypass status, gastric ulcer in 2022 due to NSAIDs, chronic narcotic dependence, chronic left knee pain with loosening of TKR hardware, SVT, neuropathy, HTN, and depression who presented to the ED on 11/20 with numerous episodes of nausea/vomiting, pain, and changes in bowels over the last month. She has had about 5 loose stools per day associated with epigastric abdominal pain. Pain is worse with attempting to eat/drink. She has been taking loperamide and pepto for the diarrhea, and chronically uses large quantities of both aspirin and ibuprofen for chronic arthritic pain in her knees. She admits that symptoms started after she was started on an antibiotics for skin infection (clindamycin / doxycycline). she has not been able to tell if she has blood in her stools or black stool as she uses a bedside commode at home that is lined with a black bag. she has been started on protonix 40mg BID and carafate 1 gm QID which she feels has helped some. She is requesting an EGD to further evaluate. EGD 2022 gastric ulcer with visible vessel that was injected and had clip placed. 11/20/24 hgb 12.8, hct 38.5. stool studies unremarkable. 11/22/24 hgb 11.5, hct 36.1, BUN 3, Creatinine 0.44. CT 11/20/24 Gastric bypass changes with radiation of the gastric pouch and portions of the gastric fundus. Findings are unchanged. No obstruction. No additional findings to indicate source of patient's symptoms. Allergies Allergy/AdvReac Type Severity Reaction Status Date / Time bee venom protein (honey bee) Allergy Severe Anaphylaxis Verified 11/20/24 18:38 sulfamethoxazole Allergy Unknown at age 20, Verified 11/20/24 18:38 can not remember what happened trimethoprim Allergy Unknown at age 20, Verified 11/20/24 18:38 can not remember what happened aripiprazole [From Abilify] AdvReac Severe Tremors Verified 11/20/24 18:38 lactose AdvReac Intermediate MILK & ICE Verified 11/20/24 18:38 CREAM--DIARRHEA metoclopramide [From Reglan] AdvReac Intermediate TONGUE Verified 11/20/24 18:38 "TICS" Home Medications Medication Instructions Recorded Confirmed Type bupropion HCl 150 mg 24 hr tablet, 150 mg PO QAM 06/03/22 11/20/24 History extended release (Wellbutrin XL) bupropion HCl 300 mg 24 hr tablet, 300 mg PO QAM 06/03/22 11/20/24 History extended release (Wellbutrin XL) bismuth subsalicylate 262 mg 524 mg PO QID PRN Gi Upset 09/24/23 11/20/24 History tablet (Pepto-Bismol) tafluprost (PF) 0.0015 % eye drops 2 drp OPB HS 09/24/23 11/20/24 History in a dropperette timolol maleate 0.5 % eye drops 1 drp OPB QAM 09/24/23 11/20/24 History epinephrine 0.3 mg/0.3 mL 0.3 mg IM DIRECTED PRN Allergic 11/29/23 11/20/24 History injection, auto-injector (EpiPen) Reaction pantoprazole 40 mg tablet,delayed 40 mg PO BID 90 days #180 tabs 06/08/24 11/20/24 Rx release loperamide 2 mg capsule (Imodium 2 mg PO Q6H PRN Diarrhea 06/17/24 11/20/24 History A-D) duloxetine 20 mg capsule,delayed 20 mg PO QAM 08/03/24 11/20/24 History release triamcinolone acetonide 0.1 % 1 applic topical BID PRN SKIN 08/03/24 11/20/24 History topical ointment IRRITATIONS gabapentin 600 mg tablet 1,800 mg PO BID 08/04/24 11/20/24 History aspirin 500 mg tablet 2,500 mg PO BID 09/06/24 11/20/24 History calcium carbonate (Tums) 300 mg PO BID 09/06/24 11/20/24 History diphenhydramine HCl 25 mg capsule 25 mg PO DAILY PRN Allergy Symptoms 09/06/24 11/20/24 History (Benadryl) sumatriptan succinate 100 mg tablet 100 mg PO DAILY PRN Migraine 10/28/24 11/20/24 Rx Headache #10 tabs losartan 25 mg tablet 25 mg PO QAM #30 tabs 11/01/24 11/20/24 Rx metoprolol succinate 25 mg 25 mg PO BID #60 tabs 11/01/24 11/20/24 Rx tablet,extended release 24 hr oxycodone 5 mg tablet 10 mg (2 x 5 mg) PO Q6H PRN pain 11/01/24 11/20/24 Rx #180 tabs sumatriptan succinate 50 mg tablet 50 mg PO DAILY PRN migraine 11/01/24 11/20/24 Rx headache #30 tabs lactase 3,000 unit tablet 3,000 unit PO TIDM PRN WITH MILK 11/20/24 11/20/24 History (Dairy-Aid) PRODUCTS NEEDED Patient History Medical History Acute hypoxemic respiratory failure Altered mental status Gastric ulcer Left wrist fracture Left wrist pain Gastritis Medical marijuana use has not used several years Diarrhea Encounter for pre-operative examination Melena Acute hypotension Acute GI bleeding Hx MRSA infection dx [facility] years ago, "it was in her blood" Irritable bowel syndrome with constipation Hepatitis C hx - treated History of anesthesia reaction hx of waking up during procedures Bulging discs Scoliosis Spinal stenosis Glaucoma Attention deficit disorder (ADD) Migraine GI bleed admitted to [facility] 06/2022; no current problems Surgical History H/O gastric bypass History of partial hysterectomy History of bilateral breast reduction surgery History of bilateral tubal ligation Status post right foot surgery x7--hardware in place Status post left foot surgery x7-hardware in place History of open reduction and internal fixation (ORIF) procedure right ankle--hardware in place History of fusion of cervical spine C4-C5--normal ROM History of right shoulder replacement History of total right hip replacement History of total left knee replacement (TKR) x2 History of colonoscopy History of esophagogastroduodenoscopy (EGD) History of cholecystectomy History of appendectomy History of mandibular surgery 1978--wired shut History of tooth extraction History of wisdom tooth extraction History of eye surgery right---scar tissue from cataract sx History of bilateral cataract extraction History of cardiac cath 2005 @ [facility]---"fistula in heart between 2 valves"--no stents; no cardio, just PCP History of lung biopsy right side--benign Family History Mother Colorectal cancer Father Lung cancer Family history of esophageal cancer Brother Family history of esophageal cancer Grandfather (Maternal) Family history of esophageal cancer Other No family history of adverse response to anesthesia Social History (Updated 11/21/24 @ 00:17 by Bill Rodriguez MD) Smoking Status: Never smoker Second Hand Exposure: No; Do You Dip or Chew Tobacco: No; Hx Alcohol Use: No Hx Substance Use: No Preferred Language: Serbian Communication Ability: Effective Mail List Librarian Required: No Beliefs That Will Affect Care: None marital status: Single Current Living Situation: Alone Current Living Situation Comment: live in one story home with her two cats current occupational status: retired How many Children do You have: 1 Feels Safe at Home: Yes Assistive Devices: Wheelchair Review of Systems Review of Systems: All systems reviewed & are unremarkable except as noted in HPI & below Physical Exam Constitutional: WD/WN, vitals as above Respiratory: normal respiratory effort, lungs clear to auscultation Cardiovascular: Rate/Rhythm: regular rate and regular rhythm Gastrointestinal (Abdomen): normal bowel sounds, soft, nontender, no hepatosplenomegaly Psychiatric: Orientation: alert and oriented x 3 Affect: euthymic affect Results & Data Vital Signs (Past 12 Hours) Vital Signs Temp Pulse Pulse Resp BP Pulse Ox O2 Del Method 11/22/24 11:31 97.5 F L 60 18 150/83 H 97 Room Air 11/22/24 10:20 57 L 11/22/24 08:24 Room Air 11/22/24 07:45 97.5 F L 64 18 175/85 H 97 Room Air 11/22/24 04:17 98 F 56 L 16 152/79 H 95 Room Air Coding Level of Care Code 59276 INT INP/OBS CARE 2/55MIN Diagnoses Excessive use of nonsteroidal anti-inflammatory drug (NSAID) F19.90 Abdominal pain R10.84 Abdominal location: generalized (2) Abdominal pain Abdominal location: generalized Qualified Code(s): R10.84 - Generalized abdominal pain
[2024-11-23 05:55] LABS: Basophils # (auto) 0.03 K/uL (0.00-0.20); Basophils % (auto) 0.7 %; Eosinophils # (auto) 0.18 K/uL (0.00-0.50); Eosinophils % (auto) 4.2 %; Hematocrit (blood only) 34.7 % (37.0-47.0); Hemoglobin 10.9 g/dl (12.0-16.0); Immature Granulocytes # (auto) 0.02 K/uL (0.01-0.20); Immature Granulocytes % (auto) 0.5 %; Lymphocytes # (auto) 1.91 K/uL (1.20-3.40); Lymphocytes % (auto) 44.1 %; Mean Corpuscular Hemoglobin 25.1 pg (25.0-34.0); Mean Corpuscular Hgb Conc 31.4 g/dL (32.0-36.0); Mean Platelet Volume 9.2 fL (9.4-12.4); Monocytes # (auto) 0.54 K/uL (0.11-0.59); Monocytes % (auto) 12.5 %; Neutrophils # (auto) 1.65 K/uL (1.40-6.50); Platelet Count 294 K/uL (130-400); RDW Coefficient of Variation 15.6 % (11.5-14.5); Red Blood Count 4.34 M/uL (4.20-5.40); White Blood Count 4.33 K/ul (4.8-10.8)
[2024-11-23 06:14] LABS: BUN Creatinine Ratio 5.3 (10-20); Calcium 8.8 mg/dl (8.6-10.3); Creatinine Clr Calc Pharmacy 97.7 ml/min; Potassium 3.4 mmol/L (3.5-5.1)
--- NOTE | 2024-11-23 09:43 | Hospitalist Progress Note ---
Date of Service November 23, 2024 Assessment & Plan (1) Intractable nausea and vomiting: Plan: Differential includes gastroenteritis/infectious process, and gastritis/PUD with extremely high NSAID use. Additionally with recent doxycycline use which may be contributing to gastritis Continue PPI IV twice daily therapy, Carafate. 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: Plan: -ortho consult appreciated -no current intervention (5) Staph aureus infection: Plan: Overlying pustules and erythema have resolved with Keflex which is continued as noted (6) Depression: Plan: -cont wellbutrin and cymbalta (7) Hypertension: Plan: cont metoprolol -cont losartan (8) Chronic pain syndrome: Plan: -oxycodone (9) Neuropathy: Plan: -cont gabapentin at home doses (1800mg BID) Plan 69yo female with history of gastric bypass status, gastric ulcer in 2022 due to NSAIDs, chronic narcotic dependence, chronic left knee pain with loosening of TKR hardware, SVT, neuropathy, HTN, and depression presents with 2 weeks of severe diarrhea, then the development of nausea with numerous episodes of vomiting and epigastric abdominal pain over the last 3-4 days. Pain is worse with meals. She takes supratherapeutic doses of ibuprofen up to 2000 mg oncetwice a day, and 2500 mg of aspirin up to oncetwice a day despite history of gastric bypass and gastric ulcers. Admission and Anticipated Discharge Date Admission Date: November 20, 2024 Subjective No events overnight. Pt awaiting EGD this am. Review of Systems Review of Systems: CONST: Negative for fever, body aches and chills. HENT: Negative for neck pain/stiffness, headache, congestion, sore throat, swelling. EYES: Negative for discharge/pain or vision changes. RESP: Negative for cough/hemoptysis and shortness of breath. CV: Negative chest pain, difficulty breathing, palpitations. ABD: Negative pain, nausea, vomiting. : Negative increase frequency, dysuria, blood in urine or stool. MUSC: Negative for muscle aches, edema. SKIN: Negative rash, lesions/sores. NEURO: Negative headache, dizziness, weakness. Physical Exam Physical Exam: GENERAL APPEARANCE NAD, activity normal for age, well developed/ well nourished, no cyanosis, pallor, or diaphoresis. EYES lids/conjunctiva normal. EARS/NOSE/THROAT Mucous membranes moist, nares normal, lips/teeth normal uvula midline without oral pharyngeal erythema, exudate or swelling TMs normal bilaterally. No lymphangitis/lymphedema. HEAD/NECK normocephalic atraumatic, no facial trauma, neck is supple. RESPIRATORY respiratory effort normal, speaks in full sentences, no tripod position, no accessory muscle use. Lungs clear to auscultation without rhonchi, wheezes, rales CARDIAC Regular rate and rhythm, no edema. ABDOMINAL Soft, ND/NT. No evidence of fluid wave. No pulsatile masses on exam, rebound tenderness, Bateman sign or pain over Mcburney's point. MUSCLES/EXTREMITIES No abnormal range of motion, no swelling. SKIN Warm, pink and dry. No rashes, dermatoses, petechiae or lesions. NEUROLOGICAL Speech is clear and appropriate. Normal level of consciousness. Gait and coordination are normal. 5/5 strength in all extremities. PSYCH Normal mood and affect. Judgement/competence is appropriate Results & Data Results & Data Vital Signs (Past 12 Hours) Vital Signs Temp Pulse Pulse Resp BP Pulse Ox O2 Del Method 11/23/24 07:41 36.8 C 57 L 18 163/79 H 93 Room Air 11/23/24 03:38 36.6 C 62 16 156/76 H 95 Room Air 11/23/24 02:03 60 11/23/24 00:14 37.1 C 62 16 151/76 H 96 Room Air PG Care Time/CCT Total # of Minutes Spent Total Time Spent with Patient: Total time spent is greater than 50% in coordination of care (as documented) at patient's floor/unit and/or counseling patient: Coding Level of Care Code 58106 SUB INP/OBS CARE 2/35MIN Diagnoses Intractable nausea and vomiting R11.2 Abdominal pain R10.84 Abdominal location: generalized Diarrhea R19.7 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
--- NOTE | 2024-11-23 09:58 | History & Physical Bridge Note ---
Date of Service November 23, 2024 History & Physical Bridge Note I have examined the patient, reviewed the History & Physical and in the interval since the performance of the History & Physical I have noted the following changes of clinical significance: no changes noted. patient still with ongoing epigastric pain. rest of GI ros unremarkable. she has been NPO. no chest pain or sob. - will plan for EGD today to further evaluate. Supervising Physician Co-Signing Physician Notes Patient data reviewed and discussed with the GI physicians assistant to the dean. EGD to follow with further recommendations thereafter
--- NOTE | 2024-11-23 10:57 | Anesthesiology Consultation ---
Date of Service November 23, 2024 Assessment & Plan ASA ASA2 Proposed Anesthesia Anesthesia Type: MAC Risk / Benefits Reviewed With: PT / POA / Parent / Guardian, Accepts Plan and Informed Consent Obtained History Surgery Operation Date: 11/23/24 16:55 Proposed Procedures p Esophagogastroduodenoscopy Dr. Villarreal - Sergio Villarreal MD Height/Weight Height: 5 ft 4 in Weight: 81.82 kg Allergies Allergy/AdvReac Type Severity Reaction Status Date / Time bee venom protein (honey bee) Allergy Severe Anaphylaxis Verified 11/20/24 18:38 sulfamethoxazole Allergy Unknown at age 20, Verified 11/20/24 18:38 can not remember what happened trimethoprim Allergy Unknown at age 20, Verified 11/20/24 18:38 can not remember what happened aripiprazole [From Abilify] AdvReac Severe Tremors Verified 11/20/24 18:38 lactose AdvReac Intermediate MILK & ICE Verified 11/20/24 18:38 CREAM--DIARRHEA metoclopramide [From Reglan] AdvReac Intermediate TONGUE Verified 11/20/24 18:38 "TICS" Medications Home Medications Medication Instructions Recorded Confirmed Last Taken bupropion HCl 150 mg 24 hr tablet, 150 mg PO QAM 06/03/22 11/20/24 11/20/24 extended release (Wellbutrin XL) bupropion HCl 300 mg 24 hr tablet, 300 mg PO QAM 06/03/22 11/20/24 11/20/24 extended release (Wellbutrin XL) bismuth subsalicylate 262 mg 524 mg PO QID PRN Gi Upset 09/24/23 11/20/24 12/11/23 tablet (Pepto-Bismol) tafluprost (PF) 0.0015 % eye drops 2 drp OPB HS 09/24/23 11/20/24 11/19/24 in a dropperette timolol maleate 0.5 % eye drops 1 drp OPB QAM 09/24/23 11/20/24 11/20/24 epinephrine 0.3 mg/0.3 mL 0.3 mg IM DIRECTED PRN Allergic 11/29/23 11/20/24 Unknown injection, auto-injector (EpiPen) Reaction pantoprazole 40 mg tablet,delayed 40 mg PO BID 90 days #180 tabs 06/08/24 11/20/24 11/20/24 08:00 release loperamide 2 mg capsule (Imodium 2 mg PO Q6H PRN Diarrhea 06/17/24 11/20/24 Unknown A-D) duloxetine 20 mg capsule,delayed 20 mg PO QAM 08/03/24 11/20/24 11/20/24 release triamcinolone acetonide 0.1 % 1 applic topical BID PRN SKIN 08/03/24 11/20/24 09/27/24 topical ointment IRRITATIONS gabapentin 600 mg tablet 1,800 mg PO BID 08/04/24 11/20/24 11/20/24 08:00 aspirin 500 mg tablet 2,500 mg PO BID 09/06/24 11/20/24 11/20/24 08:00 calcium carbonate (Tums) 300 mg PO BID 09/06/24 11/20/24 11/20/24 08:00 diphenhydramine HCl 25 mg capsule 25 mg PO DAILY PRN Allergy Symptoms 09/06/24 11/20/24 Unknown (Benadryl) sumatriptan succinate 100 mg tablet 100 mg PO DAILY PRN Migraine 10/28/24 11/20/24 Unknown Headache #10 tabs losartan 25 mg tablet 25 mg PO QAM #30 tabs 11/01/24 11/20/24 11/20/24 metoprolol succinate 25 mg 25 mg PO BID #60 tabs 11/01/24 11/20/24 11/20/24 08:00 tablet,extended release 24 hr oxycodone 5 mg tablet 10 mg (2 x 5 mg) PO Q6H PRN pain 11/01/24 11/20/24 Unknown #180 tabs sumatriptan succinate 50 mg tablet 50 mg PO DAILY PRN migraine 11/01/24 11/20/24 Unknown headache #30 tabs lactase 3,000 unit tablet 3,000 unit PO TIDM PRN WITH MILK 11/20/24 11/20/24 Unknown (Dairy-Aid) PRODUCTS NEEDED Active Medications Generic Name Dose Route Start Last Admin Trade Name Freq PRN Reason Stop Dose Admin Acetaminophen 1,000 mg 11/21/24 00:26 11/22/24 14:17 Acetaminophen 500 Mg Tab PO 12/21/24 00:25 1,000 mg Q6H PRN Administration Pain or Fever Bupropion HCl 300 mg 11/21/24 09:00 11/23/24 08:59 Bupropion Xl 300 Mg Tabcr PO 12/21/24 08:59 300 mg QAM TON Administration Bupropion HCl 150 mg 11/21/24 09:00 11/23/24 08:59 Bupropion Xl 150 Mg Tabcr PO 12/21/24 08:59 150 mg QAM TON Administration Duloxetine HCl 20 mg 11/21/24 09:00 11/23/24 08:59 Duloxetine Hcl 20 Mg Cap PO 12/21/24 08:59 20 mg QAM TON Administration Gabapentin 1,800 mg 11/21/24 09:00 11/23/24 08:59 Gabapentin 600 Mg Tab PO 12/21/24 08:59 1,800 mg BID TON Administration Potassium Chloride/Dextrose/Sod Cl 20 meq in 1,000 mls @ 100 mls/hr 11/20/24 23:00 11/23/24 10:20 D5nss + 20meq Kcl IV 11/23/24 22:59 0 mls/hr .Q10H TON Infusion Pantoprazole Sodium 40 mg in 10 mls @ 5 mls/min 11/21/24 09:00 11/23/24 08:57 Protonix IV 12/21/24 08:59 5 mls/min BID TON Administration Cefazolin Sodium 2,000 mg in 15 mls @ 3.75 mls/min 11/21/24 02:00 11/23/24 02:22 Ancef 2000mg IV 11/28/24 01:59 3.75 mls/min Q8H TON Administration Losartan Potassium 25 mg 11/21/24 09:00 11/23/24 08:59 Losartan Potassium 25 Mg Tab PO 12/21/24 08:59 25 mg QAM TON Administration Metoprolol Succinate 25 mg 11/21/24 09:00 11/23/24 08:59 Metoprolol Succ 25mg Ext Rel Tab PO 12/21/24 08:59 Not Given BID TON Miscellaneous 1 each 11/21/24 08:00 11/23/24 08:30 Tafluprost (Pf) 0.0015% - Order Awaiting Action N/A 12/21/24 07:59 Not Given QS TON Ondansetron HCl 4 mg 11/21/24 00:26 11/22/24 15:49 Ondansetron Inj 2 Mg/Ml 2 Ml Vial IV 12/21/24 00:25 4 mg Q6H PRN Administration Nausea Oxycodone/Acetaminophen 2 tab 11/21/24 00:46 11/23/24 06:42 Oxycodone/Acetaminophen 5mg/325mg Tab PO 12/05/24 00:45 2 tab Q6H PRN Administration Pain Promethazine HCl 25 mg 11/21/24 19:43 11/22/24 14:18 Promethazine Hcl 25 Mg Tab PO 12/21/24 19:42 25 mg Q6H PRN Administration Nausea And Vomiting Sucralfate 1 gm 11/21/24 00:26 11/23/24 09:00 Sucralfate 1 Gm/10 Ml Udc PO 12/21/24 00:25 Not Given QID TON Sumatriptan Succinate 100 mg 11/21/24 11:17 11/22/24 05:36 Sumatriptan Succinate 100 Mg Tab PO 12/21/24 11:16 100 mg DAILY PRN Administration Migraine Headache Sumatriptan Succinate 50 mg 11/22/24 19:33 11/23/24 08:58 Sumatriptan Succinate 50 Mg Tab PO 12/22/24 19:32 50 mg DAILY PRN Administration Migraine Headache Timolol Maleate 1 drops 11/21/24 09:00 11/23/24 09:00 Timolol Maleate 0.5% Op Soln 5 Ml Btl OPB 12/21/24 08:59 1 drops QAM TON Administration NPO Date Last Intake of Fluids: 11/23/24 Time Last Intake of Fluids: 09:00 Last Intake of Fluids Comment: sip with meds Last Intake of Solids Comment: clears since admission Past Medical History Medical History Acute hypoxemic respiratory failure Altered mental status Gastric ulcer Left wrist fracture Left wrist pain Gastritis Medical marijuana use has not used several years Diarrhea Encounter for pre-operative examination Melena Acute hypotension Acute GI bleeding Hx MRSA infection [facility] years ago, "it was in her blood" Irritable bowel syndrome with constipation Hepatitis C hx - treated History of anesthesia reaction hx of waking up during procedures Bulging discs Scoliosis Spinal stenosis Glaucoma Attention deficit disorder (ADD) Migraine GI bleed admitted to [facility] 06/2022; no current problems Exercise / Class Metabolic Activity II 4-5 Yardwork/Stairs/Walk up hill Past Family History Family History Mother Colorectal cancer Father Lung cancer Family history of esophageal cancer Brother Family history of esophageal cancer Grandfather (Maternal) Family history of esophageal cancer Other No family history of adverse response to anesthesia Past Surgical History Surgical History H/O gastric bypass History of partial hysterectomy History of bilateral breast reduction surgery History of bilateral tubal ligation Status post right foot surgery x7--hardware in place Status post left foot surgery x7-hardware in place History of open reduction and internal fixation (ORIF) procedure right ankle--hardware in place History of fusion of cervical spine C4-C5--normal ROM History of right shoulder replacement History of total right hip replacement History of total left knee replacement (TKR) x2 History of colonoscopy History of esophagogastroduodenoscopy (EGD) History of cholecystectomy History of appendectomy History of mandibular surgery 1978--wired shut History of tooth extraction History of wisdom tooth extraction History of eye surgery right---scar tissue from cataract sx History of bilateral cataract extraction History of cardiac cath 2005 [facility]---"fistula in heart between 2 valves"--no stents; no cardio, just PCP History of lung biopsy right side--benign Past Anesthesia History No Hx of Anesthesia Complications and No Family Hx of Anesthesia Complications History of PONV No Hx of PONV and No Hx of Motion Sickness Social History Smoking Status: Never smoker Do You Dip or Chew Tobacco: No Hx Alcohol Use: No Alcohol type: beer alcohol intake frequency: holidays/special occasions only Hx Substance Use: No substance use type: does not use Review of Systems denies fever/cough/ colds/ chest pain/ SOB/ AAYUSH denies AAYUSH Physical Exam Vital Signs Last Vital Signs Temp 36.7 C 11/23/24 10:44 Pulse 56 L 11/23/24 10:44 Resp 18 11/23/24 10:44 BP 165/77 H 11/23/24 10:44 Pulse Ox 97 11/23/24 10:44 O2 Del Method Room Air 11/23/24 10:44 ENMT Mouth: no TMJ abnormality and no dentition abnormality Thyromental Distance: > or= 3.5 Finger Breadths Mallampati Class: II Neck neck extension not limited Respiratory normal respiratory effort; no respiratory distress Auscultation: lungs clear to auscultation bilaterally Cardiovascular Rate/Rhythm: regular rate and regular rhythm Neurologic moves all extremities Psychiatric Orientation: alert and oriented x 3 Testing Laboratory Results 11/23/24 04:55 11/23/24 04:55 Urine Color Yellow 11/20/24 17:51 Urine Appearance Clear (Clear) 11/20/24 17:51 Urine pH 6.0 (4.5-7.5) 11/20/24 17:51 Ur Specific Marydel 1.010 (1.000-1.030) 11/20/24 17:51 Urine Protein Negative (Negative) 11/20/24 17:51 Urine Glucose (UA) Negative (Negative) 11/20/24 17:51 Urine Ketones Negative (Negative) 11/20/24 17:51 Urine Nitrite Negative (Negative) 11/20/24 17:51 Ur Leukocyte Esterase Negative (Negative) 11/20/24 17:51 11/21/24 00:21 Aerobic Blood Culture - Preliminary Blood No growth in Aerobic bottle after 48 hours. Anaerobic Blood Culture - Preliminary No growth in Anaerobic bottle after 48 hours. 11/21/24 00:15 Aerobic Blood Culture - Preliminary Blood No growth in Aerobic bottle after 48 hours. Anaerobic Blood Culture - Preliminary No growth in Anaerobic bottle after 48 hours.
--- NOTE | 2024-11-23 11:35 | GI REPORT ---
[facility] Patient: IRVIN CERRATO : 1955 Sex at : Female Age: 69 Years Procedure: Upper GI endoscopy Date: 11/23/2024 Attending Physician: Sergio Villarreal MD Referring MD: Mitchell Esteban MD Indications: - Dyspepsia - Nausea with vomiting - Diarrhea - Exclusion of chronic peptic ulcer Medications: - See the Anesthesia note for documentation of the administered medications Complications: - No immediate complications. Estimated Blood Loss: - Estimated blood loss was minimal. Procedure: - ASA Grade Assessment: II - A patient with mild systemic disease. - The heart rate, respiratory rate, oxygen saturations, blood pressure, adequacy of pulmonary ventilation, and response to care were monitored throughout the procedure. - The egd scope was introduced through the mouth and advanced to the jejunum. - The upper GI endoscopy was accomplished without difficulty. - The patient tolerated the procedure well. Findings: - The examined jejunum was normal. Biopsies were taken with a cold forceps for histology. 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 The gastrojejunal anastomosis was characterized by healthy appearing mucosa. This was traversed. The tvsbc-ky-ozlmaam limb was characterized by healthy appearing mucosa. The zpliynft-zm-kjzujme limb was not examined as it could not be reached. The excluded stomach was not examined as it could not be reached. - The entire examined stomach was normal. Biopsies were taken with a cold forceps for histology. - The Z-line was regular and was found 32 cm from the incisors. This was biopsied with a cold forceps for evaluation to rule out Krishnamurthy's Esophagus. - The examined esophagus was normal. This was biopsied with a cold forceps for evaluation of eosinophilic esophagitis. Impression: - Normal examined jejunum. Biopsied. - Manolo-en-Y gastrojejunostomy with gastrojejunal anastomosis characterized by healthy appearing mucosa. - Normal stomach. Biopsied. - Z-line regular, 32 cm from the incisors. Biopsied. - Normal esophagus. Biopsied. Recommendation: - Await pathology results. - Maintain patient on PPI twice daily - Consider alternative pain medication regimen -- suspect NSAID induced dyspepsia. - Patient may benefit from amitriptyline at bedtime for symptoms. - Advance diet as tolerated - gastroparesis diet. In light of normal exam, gastroenteritis with exacerbation of gastric delay (vagal denervation from bypass) could be at play. May benefit from prokinetic therapy. - Recall GI service as needed. Procedure Code(s): - 12662, Esophagogastroduodenoscopy, flexible, transoral; with biopsy, single or multiple Diagnosis Code(s): - R10.13, Epigastric pain - R11.2, Nausea with vomiting, unspecified - R19.7, Diarrhea, unspecified - Z98.0, Intestinal bypass and anastomosis status CPT(R) - 2023 copyright [employer]. All Rights Reserved. The CPT codes, CCI edits and ICD codes generated are intended as suggestions and were generated based on input data. These codes are preliminary and upon physician recruiter review may be revised to meet current compliance and payer requirements. The provider is responsible for the final determination of appropriate codes, and modifiers. Sergio Villarreal MD This document has been electronically signed. Note Initiated:11/23/2024 Note Completed:11/23/2024 11:34 AM \\[id number]
--- NOTE | 2024-11-23 11:42 | Anesthesiology Progress Note ---
Date of Service November 23, 2024 Anesthesia Post Procedure Vital Signs Vital Signs: Temp Pulse Pulse Resp BP Pulse Ox O2 Del Method 11/23/24 11:22 59 L 15 136/61 98 Room Air 11/23/24 10:44 36.7 C 56 L 18 165/77 H 97 Room Air 11/23/24 07:41 36.8 C 57 L 18 163/79 H 93 Room Air 11/23/24 03:38 36.6 C 62 16 156/76 H 95 Room Air 11/23/24 02:03 60 11/23/24 00:14 37.1 C 62 16 151/76 H 96 Room Air 11/22/24 20:48 60 160/81 H 11/22/24 19:49 36.8 C 58 L 16 158/77 H 95 Room Air 11/22/24 17:04 74 Pain Intensity Left Knee: Pain Intensity: 8 Transfer of Care Handoff Completed per policy Notes Mental Status: alert / awake / arousable and participated in evaluation Patient Amnestic to Procedure: Yes Nausea / Vomiting: adequately controlled Pain: adequately controlled Airway Patency, RR, SpO2: stable & adequate BP & HR: stable & adequate Hydration State: stable & adequate Anesthetic Complications: no major complications apparent and Pt Satisfied with anesthetic care
--- NOTE | 2024-11-23 12:44 | Electrocardiogram Report ---
Test Reason : Blood Pressure : */* mmHG Vent. Rate : 67 BPM Atrial Rate : 67 BPM P-R Int : 186 ms QRS Dur : 102 ms QT Int : 420 ms P-R-T Axes : 43 -10 34 degrees QTcB Int : 443 ms Normal sinus rhythm Minimal voltage criteria for LVH, may be normal variant ( Christoph product ) Cannot rule out Anterior infarct , age undetermined Abnormal ECG When compared with ECG of 06-Sep-2024 07:40, No significant change was found Confirmed by Shantanu Corona ([id number]) on 11/23/2024 12:44:49 PM Referred By: REFERRED SELF Confirmed By: Shantanu Corona
[2024-11-24 08:37] LABS: Basophils # (auto) 0.03 K/uL (0.00-0.20); Basophils % (auto) 0.7 %; Eosinophils # (auto) 0.16 K/uL (0.00-0.50); Eosinophils % (auto) 3.7 %; Hematocrit (blood only) 36.3 % (37.0-47.0); Hemoglobin 11.5 g/dl (12.0-16.0); Immature Granulocytes # (auto) 0.01 K/uL (0.01-0.20); Immature Granulocytes % (auto) 0.2 %; Lymphocytes # (auto) 1.67 K/uL (1.20-3.40); Lymphocytes % (auto) 38.9 %; Mean Corpuscular Hemoglobin 24.9 pg (25.0-34.0); Mean Corpuscular Hgb Conc 31.7 g/dL (32.0-36.0); Mean Corpuscular Volume 78.6 fL (80.0-100.0); Mean Platelet Volume 8.8 fL (9.4-12.4); Monocytes # (auto) 0.37 K/uL (0.11-0.59); Monocytes % (auto) 8.6 %; Neutrophils # (auto) 2.05 K/uL (1.40-6.50); Neutrophils % (auto) 47.9 %; Platelet Count 293 K/uL (130-400); RDW Coefficient of Variation 15.5 % (11.5-14.5); Red Blood Count 4.62 M/uL (4.20-5.40); White Blood Count 4.29 K/ul (4.8-10.8)
[2024-11-24 08:54] LABS: BUN Creatinine Ratio 10.8 (10-20); Calcium 8.9 mg/dl (8.6-10.3); Creatinine Clr Calc Pharmacy 152.1 ml/min; Potassium 3.7 mmol/L (3.5-5.1)
--- NOTE | 2024-11-24 11:12 | Hospitalist Progress Note ---
Date of Service November 24, 2024 Assessment & Plan (1) Intractable nausea and vomiting: Plan: Differential includes gastroenteritis/infectious process, and gastritis/PUD with extremely high NSAID use. Additionally with recent doxycycline use which may be contributing to gastritis Continue PPI IV twice daily therapy, Carafate. 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: Plan: -ortho consult appreciated -no current intervention (5) Staph aureus infection: Plan: Overlying pustules and erythema have resolved with Keflex which is continued as noted (6) Depression: Plan: -cont wellbutrin and cymbalta (7) Hypertension: Plan: cont metoprolol -cont losartan (8) Chronic pain syndrome: Plan: -oxycodone (9) Neuropathy: Plan: -cont gabapentin at home doses (1800mg BID) Plan 69yo female with history of gastric bypass status, gastric ulcer in 2022 due to NSAIDs, chronic narcotic dependence, chronic left knee pain with loosening of TKR hardware, SVT, neuropathy, HTN, and depression presents with 2 weeks of severe diarrhea, then the development of nausea with numerous episodes of vomiting and epigastric abdominal pain over the last 3-4 days. Pain is worse with meals. She takes supratherapeutic doses of ibuprofen up to 2000 mg oncetwice a day, and 2500 mg of aspirin up to oncetwice a day despite history of gastric bypass and gastric ulcers. Admission and Anticipated Discharge Date Admission Date: November 20, 2024 Review of Systems Review of Systems: CONST: Negative for fever, body aches and chills. HENT: Negative for neck pain/stiffness, headache, congestion, sore throat, swelling. EYES: Negative for discharge/pain or vision changes. RESP: Negative for cough/hemoptysis and shortness of breath. CV: Negative chest pain, difficulty breathing, palpitations. ABD: Negative pain, nausea, vomiting. : Negative increase frequency, dysuria, blood in urine or stool. MUSC: Negative for muscle aches, edema. SKIN: Negative rash, lesions/sores. NEURO: Negative headache, dizziness, weakness. Physical Exam Physical Exam: GENERAL APPEARANCE NAD, activity normal for age, well developed/ well nourished, no cyanosis, pallor, or diaphoresis. EYES lids/conjunctiva normal. EARS/NOSE/THROAT Mucous membranes moist, nares normal, lips/teeth normal uvula midline without oral pharyngeal erythema, exudate or swelling TMs normal bilaterally. No lymphangitis/lymphedema. HEAD/NECK normocephalic atraumatic, no facial trauma, neck is supple. RESPIRATORY respiratory effort normal, speaks in full sentences, no tripod position, no accessory muscle use. Lungs clear to auscultation without rhonchi, wheezes, rales CARDIAC Regular rate and rhythm, no edema. ABDOMINAL Soft, ND/NT. No evidence of fluid wave. No pulsatile masses on exam, rebound tenderness, Bateman sign or pain over Mcburney's point. MUSCLES/EXTREMITIES No abnormal range of motion, no swelling. SKIN Warm, pink and dry. No rashes, dermatoses, petechiae or lesions. NEUROLOGICAL Speech is clear and appropriate. Normal level of consciousness. Gait and coordination are normal. 5/5 strength in all extremities. PSYCH Normal mood and affect. Judgement/competence is appropriate Results & Data Results & Data Vital Signs (Past 12 Hours) Vital Signs Temp Pulse Pulse Resp BP BP Pulse Ox 11/24/24 07:53 36.6 C 54 L 18 156/79 H 95 11/24/24 03:25 36.7 C 61 16 158/77 H 97 11/24/24 00:38 56 L O2 Del Method 11/24/24 07:53 Room Air 11/24/24 03:25 Room Air 11/24/24 00:38 PG Care Time/CCT Total # of Minutes Spent Total Time Spent with Patient: Total time spent is greater than 50% in coordination of care (as documented) at patient's floor/unit and/or counseling patient: Coding Level of Care Code None Diagnoses Intractable nausea and vomiting R11.2 Abdominal pain R10.84 Abdominal location: generalized Diarrhea R19.7 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
--- NOTE | 2024-11-24 11:13 | Discharge Summary ---
Discharge Summary Date of Service November 24, 2024 Principal Dx & Hospital Course #1 = Principal Diagnosis (1) Intractable nausea and vomiting: Differential includes gastroenteritis/infectious process, and gastritis/PUD with extremely high NSAID use. Additionally with recent doxycycline use which may be contributing to gastritis Continue PPI IV twice daily therapy, Carafate. 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: -ortho consult appreciated -no current intervention (5) Staph aureus infection: Overlying pustules and erythema have resolved with Keflex which is continued as noted (6) Depression: -cont wellbutrin and cymbalta (7) Hypertension: cont metoprolol -cont losartan (8) Chronic pain syndrome: -oxycodone (9) Neuropathy: -cont gabapentin at home doses (1800mg BID) Plan 69yo female with history of gastric bypass status, gastric ulcer in 2022 due to NSAIDs, chronic narcotic dependence, 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 Pain is worse with meals. She takes supratherapeutic doses of ibuprofen up to 2000 mg oncetwice a day, and 2500 mg of aspirin up to oncetwice a day despite history of gastric bypass and gastric ulcers. Admission HPI Per Admitting Provider 69yo female with history of gastric bypass status, gastric ulcer in 2022 due to NSAIDs, chronic narcotic dependence, chronic left knee pain with loosening of TKR hardware, SVT, neuropathy, HTN, and depression presents with 2 weeks of severe diarrhea, then the development of nausea with numerous episodes of vomiting over the last 3-4 days. Denies any BRBPR or melena stool. Has had about 5 loose stools/day when the illness started. The stool has severe malodo r. In addition she has had about 3-4 days of upper abdominal pain. Pain is worse with attempting to eat/drink. She has been taking loperamide and pepto for the diarrhea, and uses chronically large quantities of both aspirin and motrin for chronic arthritic pain. The motrin has been more recent, taking in excess of 2000mg/day of motrin for the last 1-2 weeks. Over the last 48 hours she has been unable to keep most liquids/foodstuffs down. She hardly had any PO intake today. On November 01 she was initiated on a course of clindamycin for a diffuse rash on her arms, legs, and neck region. A culture taken of one of the skin lesions grew methicillin-sensitive staph aureus. It appears she was changed to doxycycline on November 04 when the culture finalized. About November 06 or the diarrhea began. She was seen at [facility] for the diarrhea on November 10 and a cdiff test was dispatched. She never received the results. I called [facility] this evening and verified with their lab that the cdiff test was indeed negative. Patient denies any recent travel although she was in [place] last week seeing [facility] for her left knee. They expressed concerns that there may be chronic infection in the left knee. No sick contacts. Discharge Exam GENERAL APPEARANCE NAD, activity normal for age, well developed/ well nourished, no cyanosis, pallor, or diaphoresis. EYES lids/conjunctiva normal. EARS/NOSE/THROAT Mucous membranes moist, nares normal, lips/teeth normal uvula midline without oral pharyngeal erythema, exudate or swelling TMs normal bilaterally. No lymphangitis/lymphedema. HEAD/NECK normocephalic atraumatic, no facial trauma, neck is supple. RESPIRATORY respiratory effort normal, speaks in full sentences, no tripod position, no accessory muscle use. Lungs clear to auscultation without rhonchi, wheezes, rales CARDIAC Regular rate and rhythm, no edema. ABDOMINAL Soft, ND/NT. No evidence of fluid wave. No pulsatile masses on exam, rebound tenderness, Bateman sign or pain over Mcburney's point. MUSCLES/EXTREMITIES No abnormal range of motion, no swelling. SKIN Warm, pink and dry. No rashes, dermatoses, petechiae or lesions. NEUROLOGICAL Speech is clear and appropriate. Normal level of consciousness. Gait and coordination are normal. 5/5 strength in all extremities. PSYCH Normal mood and affect. Judgement/competence is appropriate Discharge Plan Discharge Items Patient Disposition: Home - Self-Care Reason For Visit: NAUSEA/VOMITING/ABD PAIN/DEHYDRATION/DIARRHEA Discharge Diagnosis: Intractable nausea/vomiting Condition on Discharge: Fair Activity: Resume your previous activity Non-emergency contact: Primary Care Provider Call non-emergency contact if: you have any medication questions Follow-up/Referrals: Ketty Cardoso PA-C [Physician Track Hoe Operator] - 12/01/24 3:00 pm PCP,NO [Primary Care Provider] - Diet: Regular Addtl Attending Provider Instructions: Follow up with PMD in 2 weeks Pending Studies at Discharge: No Stand-Alone Forms: My [facility] [employer], Smoking Cessation Medications and DC Order Prescriptions: Continued pantoprazole 40 mg tablet,delayed release (DR/EC) 40 mg PO BID 90 Days Qty: 180 1RF Hold Instructions: Resume on 06/28/24. resume after you completed antibiotics losartan 25 mg tablet 25 mg PO QAM Qty: 30 3RF metoprolol succinate 25 mg tablet extended release 24 hr 25 mg PO BID Qty: 60 3RF sumatriptan succinate 50 mg tablet 50 mg PO DAILY PRN (Reason: migraine headache) Qty: 30 1RF Rx Instructions: do not exceed 4 doses per 24 hrs loperamide [Imodium A-D] 2 mg capsule 2 mg PO Q6H PRN (Reason: Diarrhea) sumatriptan succinate 100 mg tablet 100 mg PO DAILY PRN (Reason: Migraine Headache) Qty: 10 0RF oxycodone 5 mg tablet 10 mg PO Q6H PRN (Reason: pain) Qty: 180 0RF bupropion HCl [Wellbutrin XL] 300 mg Tablet Extended Release 24 Hr 300 mg PO QAM Rx Instructions: TOTAL DOSE 450 MG--TAKES WITH 150 MG TAB. bupropion HCl [Wellbutrin XL] 150 mg Tablet Extended Release 24 Hr 150 mg PO QAM Rx Instructions: TOTAL DOSE 450 MG--TAKES WITH 300 MG TAB. epinephrine [EpiPen] 0.3 mg/0.3 mL Auto-Injector 0.3 mg IM DIRECTED PRN (Reason: Allergic Reaction) triamcinolone acetonide 0.1 % ointment 1 applic TOPICAL BID PRN (Reason: SKIN IRRITATIONS) duloxetine 20 mg capsule,delayed release(DR/EC) 20 mg PO QAM gabapentin 600 mg tablet 1,800 mg PO BID lactase [Dairy-Aid] 3,000 unit tablet 3,000 unit PO TIDM PRN (Reason: WITH MILK PRODUCTS NEEDED) Pepto-Bismol 262 mg Tablet 524 mg PO QID PRN (Reason: Gi Upset) timolol maleate 0.5 % drops 1 drp OPB QAM tafluprost (PF) 0.0015 % dropperette 2 drp OPB HS Tums 300 mg (750 mg) Tablet,Chewable 300 mg PO BID aspirin 500 mg Tablet 2,500 mg PO BID diphenhydramine HCl [Benadryl] 25 mg Capsule 25 mg PO DAILY PRN (Reason: Allergy Symptoms) Admission Data Admit Date/Time: 11/20/24 22:59 Attending Provider: Mitchell Esteban Admit Provider: Bill Rodriguez Primary Care Provider: PCP,NO Other Providers: Bill Rodriguez; Daniel Valdes; [facility]; Sergio Villarreal Other Interventions: Discharge Summary Assessment (RN) Last Done: 11/23/24 11:37 Hospital Stay Data Consultations 11/20/24 21:55 ED Decision to Admit Stat 11/21/24 08:00 Consult Orthopedic Surgery Routine 11/22/24 11:13 Consult Gastroenterology Routine Procedures Performed Operation Date: 11/23/24 16:55 Actual Procedures p EGD Biopsy Cytology - Sergio Villarreal MD Diagnostic Imagining Performed 11/20/24 18:45 CT abd pelvis IV con only Stat Pending Results Patient Have Any Pending Studies at Discharge: No Discharge Instructions Given to Patient (Per Discharging Provider) Follow up with PMD in 2 weeks Total Time Total Time Spent Total Time Spent (In Minutes): 50 Coding Level of Care Code 24300 INP/OBS DISCH >30 MIN Diagnoses Intractable nausea and vomiting R11.2 Abdominal pain R10.84 Abdominal location: generalized Diarrhea R19.7 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
[2024-11-24 23:26] VITALS: RESP 16; TEMP 98.1
[2024-11-25 03:44] VITALS: O2SAT 97
[2024-11-25 07:40] LABS: Basophils # (auto) 0.02 K/uL (0.00-0.20); Basophils % (auto) 0.4 %; Eosinophils # (auto) 0.17 K/uL (0.00-0.50); Hemoglobin 12.1 g/dl (12.0-16.0); Immature Granulocytes # (auto) 0.02 K/uL (0.01-0.20); Immature Granulocytes % (auto) 0.4 %; Lymphocytes % (auto) 33.5 %; Mean Corpuscular Hgb Conc 31.8 g/dL (32.0-36.0); Mean Corpuscular Volume 78.5 fL (80.0-100.0); Mean Platelet Volume 9.1 fL (9.4-12.4); Monocytes # (auto) 0.53 K/uL (0.11-0.59); Monocytes % (auto) 9.3 %; Neutrophils # (auto) 3.03 K/uL (1.40-6.50); Neutrophils % (auto) 53.4 %; Platelet Count 315 K/uL (130-400); RDW Coefficient of Variation 15.4 % (11.5-14.5); RDW Standard Deviation 43.7 fL (36.4-46.3); Red Blood Count 4.84 M/uL (4.20-5.40); White Blood Count 5.67 K/ul (4.8-10.8)
[2024-11-25 07:58] LABS: BUN Creatinine Ratio 18.2 (10-20); Calcium 8.9 mg/dl (8.6-10.3); Creatinine Clr Calc Pharmacy 127.4 ml/min; Potassium 3.5 mmol/L (3.5-5.1)
--- NOTE | 2024-11-25 09:44 | Hospitalist Progress Note ---
Date of Service November 25, 2024 Assessment & Plan (1) Intractable nausea and vomiting: Plan: Differential includes gastroenteritis/infectious process, and gastritis/PUD with extremely high NSAID use. Additionally with recent doxycycline use which may be contributing to gastritis Continue PPI IV twice daily therapy, Carafate. Stop all NSAIDs -GI consult appreciated -EGD negative -d/c home once able to tolerate diet. 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: Plan: -ortho consult appreciated -no current intervention (5) Staph aureus infection: Plan: Overlying pustules and erythema have resolved with Keflex which is continued as noted (6) Depression: Plan: -cont wellbutrin and cymbalta (7) Hypertension: Plan: cont metoprolol -cont losartan (8) Chronic pain syndrome: Plan: -oxycodone (9) Neuropathy: Plan: -cont gabapentin at home doses (1800mg BID) Plan 69yo female with history of gastric bypass status, gastric ulcer in 2022 due to NSAIDs, chronic narcotic dependence, chronic left knee pain with loosening of TKR hardware, SVT, neuropathy, HTN, and depression presents with 2 weeks of severe diarrhea, then the development of nausea with numerous episodes of vomiting and epigastric abdominal pain over the last 3-4 days. Pain is worse with meals. She takes supratherapeutic doses of ibuprofen up to 2000 mg oncetwice a day, and 2500 mg of aspirin up to oncetwice a day despite history of gastric bypass and gastric ulcers. Admission and Anticipated Discharge Date Admission Date: November 20, 2024 Subjective Pt tolerating diet today, ready to go home. Review of Systems Review of Systems: CONST: Negative for fever, body aches and chills. HENT: Negative for neck pain/stiffness, headache, congestion, sore throat, swelling. EYES: Negative for discharge/pain or vision changes. RESP: Negative for cough/hemoptysis and shortness of breath. CV: Negative chest pain, difficulty breathing, palpitations. ABD: Negative pain, nausea, vomiting. : Negative increase frequency, dysuria, blood in urine or stool. MUSC: Negative for muscle aches, edema. SKIN: Negative rash, lesions/sores. NEURO: Negative headache, dizziness, weakness. Physical Exam Physical Exam: GENERAL APPEARANCE NAD, activity normal for age, well developed/ well nourished, no cyanosis, pallor, or diaphoresis. EYES lids/conjunctiva normal. EARS/NOSE/THROAT Mucous membranes moist, nares normal, lips/teeth normal uvula midline without oral pharyngeal erythema, exudat e or swelling TMs normal bilaterally. No lymphangitis/lymphedema. HEAD/NECK normocephalic atraumatic, no facial trauma, neck is supple. RESPIRATORY respiratory effort normal, speaks in full sentences, no tripod position, no accessory muscle use. Lungs clear to auscultation without rhonchi, wheezes, rales CARDIAC Regular rate and rhythm, no edema. ABDOMINAL Soft, ND/NT. No evidence of fluid wave. No pulsatile masses on exam, rebound tenderness, Bateman sign or pain over Mcburney's point. MUSCLES/EXTREMITIES No abnormal range of motion, no swelling. SKIN Warm, pink and dry. No rashes, dermatoses, petechiae or lesions. NEUROLOGICAL Speech is clear and appropriate. Normal level of consciousness. Gait and coordination are normal. 5/5 strength in all extremities. PSYCH Normal mood and affect. Judgement/competence is appropriate Results & Data Results & Data Vital Signs (Past 12 Hours) Vital Signs Temp Pulse Pulse Resp BP Pulse Ox O2 Del Method 11/25/24 07:40 63 11/25/24 03:41 36.7 C 73 16 155/79 H 97 Room Air 11/25/24 00:20 63 11/24/24 23:23 36.7 C 65 16 153/77 H 95 Room Air PG Care Time/CCT Total # of Minutes Spent Total Time Spent with Patient: Total time spent is greater than 50% in coordination of care (as documented) at patient's floor/unit and/or counseling patient: Coding Level of Care Code 82257 SUB INP/OBS CARE 2/35MIN Diagnoses Intractable nausea and vomiting R11.2 Abdominal pain R10.84 Abdominal location: generalized Diarrhea R19.7 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
[2024-11-25 10:50] VITALS: BP 158/77; PULSE 73
== END 2024-11-25 11:37 | disposition home health service (06) | DRG 392 ==
LOC: ED 17:33 → 2N 22:59 → SUATTDRO 22:59 → 2N 11-21 00:30 → 2W 11-21 12:50

== ENCOUNTER 2025-02-10 14:44 | Inpatient (IN) ==
[2025-02-10 15:32] LABS: Hematocrit (blood only) 37.9 % (37.0-47.0); Hemoglobin 12.3 g/dl (12.0-16.0); Immature Granulocytes # (auto) 0.03 K/uL (0.01-0.20); Immature Granulocytes % (auto) 0.4 %; Mean Corpuscular Hemoglobin 26.9 pg (25.0-34.0); Mean Corpuscular Volume 82.9 fL (80.0-100.0); Platelet Count 321 K/uL (130-400); RDW Standard Deviation 47.0 fL (36.4-46.3); Red Blood Count 4.57 M/uL (4.20-5.40); White Blood Count 7.92 K/ul (4.8-10.8)
[2025-02-10 15:49] LABS: Alanine Aminotransferase 11.0 U/L (7-52); Albumin Globulin Ratio 1.1 (0.9-2); Alkaline Phosphatase 83.0 U/L (34-104); Anion Gap 8.0 (3-11); Bilirubin,Total 0.5 mg/dl (0.2-1.0); Blood Urea Nitrogen 20.0 mg/dl (6-23); Calcium 8.8 mg/dl (8.6-10.3); Carbon Dioxide 27.0 mmol/L (21-32); Chloride 106.0 mmol/L (98-107); Creatinine Clr Calc Pharmacy 76.7 ml/min; Globulin 3.2 gm/dl (2.5-4.0); Glucose 89.0 mg/dl (70-99(Fasting)); Lipase 17.0 U/L (11-82); Potassium 3.9 mmol/L (3.5-5.1); Sodium 141.0 mmol/L (136-145); Total Protein 6.8 gm/dl (6.0-8.3)
--- NOTE | 2025-02-10 16:00 | XRay Report ---
XR chest 1V portable CLINICAL HISTORY: Chest pain, nonspecific COMPARISON STUDY: 11/20/2024 FINDINGS: Heart size and pulmonary vasculature are normal. No consolidation or pleural effusion. No p neumothorax. IMPRESSION: No acute findings. ACT 112: Negative or not required by law. Electronically signed by: Paulino Bell M.D. 02/10/2025 3:58 PM
[2025-02-10] MEDS: KETOROLAC TROMETHAMINE 15 MG/ML VIAL IV ONE (16:17)
--- NOTE | 2025-02-10 16:17 | History & Physical Report ---
Date of Service February 10, 2025 Assessment & Plan (1) SVT (supraventricular tachycardia): (2) Burning with urination: (3) Painful total knee replacement, left: (4) Chronic pain: (5) Depression: Plan This patient is a 69-year-old female with PMH of recurrent SVTs who presented on 02/10 for acute onset of chest palpitations, chest pain, SOB, dizziness, and vision changes. She was found to be in SVT at 160 bpm on EMS arrival. Patient received adenosine 6 mg IV x 1 en route. #SVT | chest pain Patient is hemodynamically stable at time of admission EKG revealed NSR without acute ischemic changes when compared to October 2024 Troponin elevated 81.8 -> 497 on arrival; trend q6h to peak Suspect this is secondary to ischemia in the setting of tachyarrhythmia Touched base with [facility] cardiology; will defer IV heparin at this time Repeat EKG ordered, pending Last echocardiogram on 06/22/2024 revealed LVEF at 60-65%; grade 1 diastolic dysfunction Repeat echocardiogram ordered, pending [facility] cardiology consult appreciated; was reportedly set to see Dr. Lilly OP in September 2024 Patient is unsure what triggers her episodes of SVT, but possible culprits include (1) back pain/spasm that proceeded episode, (2) recurrence of UTI, and (3) financial stressors, among other etiologies Continuous telemetry to monitor for reoccurrence Keep K >4, mag >2 If SVT recurs, attempt vasovagal maneuver and recommend repeating the last effective dose of adenosine (6 mg IV) If SVT is refractory to adenosine 6 mg/12 mg/18 mg IV x 3, administer AV rayne blocking agent #Burning with urination | recent UTI [place] hospitalization 01/29 - 02/01 for acute UTI UCx 01/28 grew Klebsiella pneumonia with sensitivity to cephalosporins Treated with p.o. cephalexin while in the hospital Recurrence of urinary symptoms on arrival (burning with urination) Repeat urinalysis ordered, pending ? Potential trigger for SVT #Loosening of left TKR hardware | left knee pain Left knee is large and swollen when compared to the right knee on clinical exam Not warm to touch, not erythematous; no joint effusion appreciated CRP and ESR ordered, pending Seen by orthopedics during her most recent admission 01/29 Consistent with aseptic loosening at that time Would benefit from revision of total left knee arthroplasty #Chronic pain syndrome | narcotic dependence Verified in PDMP; continue home oxycodone PRN for chronic arthritic pains #HTN Continue metoprolol, losartan #Neuropathy Continue gabapentin at home doses (1800mg BID) # Depression and anxiety Continue Wellbutrin, Cymbalta It should be noted that patient was on suicide precautions during her most recent admission Cleared by psych on 01/30 #Glaucoma Continue home drops or substitutions #History of gastric bypass Noted Disposition: Admit to PCU telemetry VTE PPx: Lovenox 40 mg SQ q24h History of Present Illness Chief Complaint: Cardiac assessment Primary Care Provider: MERNA Gracia Mrs. Mcgraw is a 69-year-old female with PMH of anxiety, iron deficiency anemia, depression, anastomotic ulcer, and SVTs. She presented via EMS on 02/10 after going into an episode of SVT. This occurred at approximately 11:16 AM. Patient was sitting on her couch watching TV, when she suddenly felt diaphoretic and sweaty. She then went into chest palpitations, chest pain, lightheadedness, and exhibited difficulty breathing. She reports that this was different than prior episodes of SVT, because she could not catch her breath, and her vision was "black around the edges". Any movement would "wear [her] out instantly". Her chest pain was an 8 out of 10 at the time, with radiation down the left arm. No personal history of MIs. She does have history of a cardiac ablation in 2002 at [facility]. No family history of MIs, but does have a maternal grandmother who of a stroke. Patient reports that the pain in her left chest is still present at a 3 out of 10, and she characterizes it as an aching pain in her left chest wall and shoulder. While patient is unsure what triggers her episodes of SVT, she does report that she woke up with significant back pain this morning, and was having a back/muscle spasm just prior to the onset of this episode. Patient denies caffeine usage. She does endorse recent life stressors: Her cat needs to have 2 teeth removed, and her Social Security was recently docked leading to financial stress. No sick contacts to her knowledge. However, she does have burning with urination, and was recently hospitalized at [facility] for a UTI. Patient's first episode of SVT was approximately 2 years ago; since that time, the frequency of these episodes has been increasing, to the point where an episode might occur every couple months. Patient did not take her regular morning medications today. She reports no missed doses with her medications over the past week. She is not currently on blood thinners. No recent injuries to the chest wall or muscle strains. Patient denies smoking, tobacco use, alcohol use, or IV drug use. VSS at time of admission. EMS course: BP was reportedly 74/54 on EMS arrival. HR ~160bpm, and SVT was seen on rhythm strip. Patient received adenosine 6 mg IV en route and converted to NSR. She was also given 100 mcg of fentanyl en route. ED course: Toradol 15 mg IV Oxycodone 5 mg p.o. ROS: Patient endorses feeling feverish / sweating just prior to onset of episode, chest pain (resolved), SOB (resolved), mild pleuritic CP, back pain/spasm just prior to episode, productive cough x 2 week (green sputum production), nausea, burning with urination, and diarrhea. Patient denies hemoptysis, abdominal pain, or numbness/tingling in the arms. Allergies Allergy/AdvReac Type Severity Reaction Status Date / Time bee venom protein (honey bee) Allergy Severe Anaphylaxis Verified 01/05/25 12:36 sulfamethoxazole Allergy Unknown at age 20, Verified 01/05/25 12:36 can not remember what happened trimethoprim Allergy Unknown at age 20, Verified 01/05/25 12:36 can not remember what happened aripiprazole [From Abilify] AdvReac Severe Tremors Verified 01/05/25 12:36 lactose AdvReac Intermediate MILK & ICE Verified 01/05/25 12:36 CREAM--DIARRHEA metoclopramide [From Reglan] AdvReac Intermediate TONGUE Verified 01/05/25 12:36 "TICS" Home Medications Medication Instructions Recorded Confirmed Type bupropion HCl 150 mg 24 hr tablet, 150 mg PO QAM 06/03/22 02/10/25 History extended release (Wellbutrin XL) bupropion HCl 300 mg 24 hr tablet, 300 mg PO QAM 06/03/22 02/10/25 History extended release (Wellbutrin XL) tafluprost (PF) 0.0015 % eye drops 2 drp OPB HS 09/24/23 02/10/25 History in a dropperette timolol maleate 0.5 % eye drops 1 drp OPB QAM 09/24/23 02/10/25 History epinephrine 0.3 mg/0.3 mL 0.3 mg IM DIRECTED PRN Allergic 11/29/23 02/10/25 History injection, auto-injector (EpiPen) Reaction loperamide 2 mg capsule (Imodium 2 mg PO Q6H PRN Diarrhea 06/17/24 02/10/25 History A-D) duloxetine 20 mg capsule,delayed 20 mg PO QAM 08/03/24 02/10/25 History release gabapentin 600 mg tablet 1,800 mg PO BID 08/04/24 02/10/25 History diphenhydramine HCl 25 mg capsule 25 mg PO DAILY PRN Allergy Symptoms 09/06/24 02/10/25 History (Benadryl) sumatriptan succinate 50 mg tablet 50 mg PO DAILY PRN migraine 11/01/24 02/10/25 Rx headache #30 tabs lactase 3,000 unit tablet 3,000 unit PO TIDM PRN WITH MILK 11/20/24 02/10/25 History (Dairy-Aid) PRODUCTS NEEDED sumatriptan succinate 100 mg tablet 100 mg PO DAILY PRN Migraine 12/16/24 02/10/25 Rx Headache #30 tabs losartan 25 mg tablet 25 mg PO QAM #90 tabs 12/22/24 02/10/25 Rx metoprolol succinate 25 mg 25 mg PO BID #180 tabs 12/22/24 02/10/25 Rx tablet,extended release 24 hr ondansetron 8 mg disintegrating 8 mg PO Q8H #90 tabs 01/05/25 02/10/25 Rx tablet acetaminophen 325 mg tablet 650 mg (2 x 325 mg) PO Q4H PRN 02/01/25 02/10/25 Rx fever or pain #60 tabs hydroxyzine HCl 10 mg tablet 10 mg PO HS PRN itching #30 tabs 02/01/25 02/10/25 Rx oxycodone 5 mg tablet 10 mg (2 x 5 mg) PO Q6H PRN pain 02/01/25 02/10/25 Rx #40 tabs pantoprazole 40 mg tablet,delayed 40 mg PO BID #60 tabs 02/01/25 02/10/25 Rx release sennosides 8.6 mg tablet (Senna 8.6 mg PO HS #30 tabs 02/01/25 02/10/25 Rx Laxative) Past Med/Surg History Problem List (Updated 02/10/25 @ 17:32 by Darci Gonzales PA-C) Burning with urination Food insecurity Housing insecurity Adjustment disorder with depressed mood Acute pain of left knee (Acute) Acute UTI (Acute) Depression (Acute) Nausea History of adenomatous and serrated colon polyps Tremor MRSA (methicillin resistant Staphylococcus aureus) infection Excessive use of nonsteroidal anti-inflammatory drug (NSAID) Gastroenteritis (Acute) 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 Weakness (Acute) Ambulatory dysfunction (Acute) History of left knee replacement Ambulatory dysfunction Palpitations Shortness of breath (Acute) Elevated troponin (Acute) Current use of aspirin (Acute) SVT (supraventricular tachycardia) (Acute) Elevated troponin (Acute) CRP elevated Anastomotic ulcer Depression Hypertension hx Chronic pain syndrome Painful total knee replacement, left (Acute) Iron deficiency Hypokalemia Painful total knee replacement Adenoma Red blood cell antibody positive, compatible PRBC difficult to obtain Vitamin D insufficiency Anxiety Osteoarthritis Neuropathy Chronic pain Anemia (Acute) Medical History Gastric ulcer Gastritis Medical marijuana use has not used several years Diarrhea Melena Hx MRSA infection [facility] years ago, "it was in her blood" Irritable bowel syndrome with constipation Hepatitis C hx - treated History of anesthesia reaction hx of waking up during procedures Bulging discs Scoliosis Spinal stenosis Glaucoma Attention deficit disorder (ADD) Migraine GI bleed admitted to [facility] 06/2022; no current problems Surgical History H/O gastric bypass History of partial hysterectomy History of bilateral breast reduction surgery History of bilateral tubal ligation Status post right foot surgery x7--hardware in place Status post left foot surgery x7-hardware in place History of open reduction and internal fixation (ORIF) procedure right ankle--hardware in place History of fusion of cervical spine C4-C5--normal ROM History of right shoulder replacement History of total right hip replacement History of total left knee replacement (TKR) x2 History of colonoscopy History of esophagogastroduodenoscopy (EGD) History of cholecystectomy History of appendectomy History of mandibular surgery 1978--wired shut History of tooth extraction History of wisdom tooth extraction History of eye surgery right---scar tissue from cataract sx History of bilateral cataract extraction History of cardiac cath [facility]---"fistula in heart between 2 valves"--no stents; no cardio, just PCP History of lung biopsy right side--benign Family History Mother Colorectal cancer Father Lung cancer Family history of esophageal cancer Brother Family history of esophageal cancer Grandfather (Maternal) Family history of esophageal cancer Other No family history of adverse response to anesthesia Denies family history of Ovarian cancer Prostate cancer Myocardial infarction Breast cancer Social History Smoking Status: Never smoker Second Hand Exposure: No; Do You Dip or Chew Tobacco: No; Tobacco Cessation Education Requested by Patient: No Hx Alcohol Use: Yes Alcohol type: beer Hx Substance Use: No Preferred Language: Colombian Communication Ability: Effective Visual Impairment: Limited Hearing Ability: Normal Mail Carrier And Clerk Required: No Beliefs That Will Affect Care: None marital status: Single Current Living Situation: Alone Current Living Situation Comment: live in one story home with her two cats current occupational status: retired How many Children do You have: 1 Other Information That Helps Us Care for You: No Feels Safe at Home: Yes Safety Concerns: Feels Safe At This Time Childhood Exposure to Second-Hand Smoke: No Diet: regular caffeine: No during the past year weight has: remained stable Dental Care, Regularly: Yes Physical Activity Frequency: 1-2 Times per Week Seatbelt Use: always Sunscreen Use: Yes Do you think of yourself as: straight/heterosexual Sexual Activity: has been sexually active, but not for at least 12 months Gender Identity: Female Assistive Devices: Cane, Glasses and Wheelchair Review of Systems Review of Systems: See HPI above Physical Exam Physical Exam: General: no acute distress; pleasant affect; non-toxic appearing; well-nouris hed; cooperative; SpO2 95% on RA HEENT: normocephalic, atraumatic; no scleral icterus; PERRLA w/ EOMs intact; vision and hearing intact Neck: supple; trachea midline Skin: warm, dry without signs of tenting; no cyanosis; no rashes, bruising, lesions, or erythema noted CV: Left side of chest wall is mildly TTP; no rashes appreciated in the chest wall; RRR around 80 bpm; S1/S2 normal; no murmurs/rubs/gallops; pulses intact and symmetric at radial, DP, and PT Lungs: no acute respiratory distress; symmetrical chest wall expansion; clear breath sounds across all lung arthur w/o adventitious sounds; no wheezing ABD: Soft, NTP; BS present; no rebound/guarding; no distention Back: Mid back is TTP; no rashes or bruising appreciated in the back or abdominal flanks bilaterally MSK: no tics or fasciculations; no edema noted in the LEs b/l, nonerythematous; patient's left knee is large/swollen when compared to the right, not warm to touch, nonerythematous; no joint effusion appreciated Neuro: A&Ox3; normal mood and affect; fluent speech; no focal deficits; diminished sensation in the right lower extremity when compared to the left (assessed via light touch at the knees) Results & Data Results & Data Vital Signs (Past 12 Hours) Vital Signs Temp Pulse Resp BP Pulse Ox O2 Del Method 02/10/25 15:05 79 02/10/25 14:54 37.3 C 83 18 101/63 95 Room Air Laboratory Results Abnormal lab results 02/10/25 Range/Units 15:02 RDW Std Deviation 47.0 H (36.4-46.3) fL RDW Coeff of Faizan 15.6 H (11.5-14.5) % MPV 9.1 L (9.4-12.4) fL Oliver # (Auto) 0.69 H (0.11-0.59) K/uL BUN/Creatinine Ratio 26.7 H (10-20) Troponin I High Sens 81.8 H* (0-14) pg/ml Diagnostic Findings Chest X-Ray 02/10/25 15:16 XR chest 1V portable CLINICAL HISTORY: Chest pain, nonspecific COMPARISON STUDY: 11/20/2024 FINDINGS: Heart size and pulmonary vasculature are normal. No consolidation or pleural effusion. No pneumothorax. IMPRESSION: No acute findings. ACT 112: Negative or not required by law. Electronically signed by: Paulino Bell M.D. 02/10/2025 3:58 PM ECG Additional Comments: ECG on arrival revealed NSR at 83 bpm; QTc 415 Was unable to find / obtain EMS strips depicting SVT prior to arrival Code Status & VTE Plan Code Status Full code (note: Patient reports that she would want everything done in the emergency situation, which could include intubation and mechanical ventilation; however she makes it very clear that she would not want long-term care on a mechanical ventilator) VTE Prophylaxis Plan VTE Prophylaxis will be ordered: Yes Supervising Physician Co-Signing Physician Notes REFUGIO Supervision Note: I personally saw and examined the patient. I verified all delacruz points and agree with REFUGIO Gonzales with the following exceptions and/or additions: S-patient presents after having SVT x 2 hours with associated chest pain, lightheadedness, and shortness of breath. She was given adenosine 6 mg x 1 in the ambulance and it resolved. She has no further chest pain and is feeling better. She admits that she typically takes 5 Chelsea back and body aspirin/caffeine 500 mg/32.5 mg tablets 3 times a day for severe knee pain-this is a total of 2500 mg of aspirin 3 times a day and 160 mg of caffeine 3 times a day. She reports she used to be on long-acting morphine but her new PCP would not prescribe it for her since September. She has an appointment coming up with pain management on Thursday that she does not want to miss O- Vitals reviewed Gen: AAOx3, NAD, obese HEENT: Anicteric sclerae, EOMI CV: RRR no mgr nl S1S2 Pulm: CTAB no wcr Abd: +BS soft NT ND no masses or hernias Ext: No edema, left knee effusion and positive tenderness to palpation diffusely around joint Skin: No rashes, warm/dry CBC, BMP, troponin, LFTs reviewed A/Y-19-wagj-old female here with SVT that was symptomatic with angina and possibly with hypotension given lightheadedness with episode. She reports heart rates were in the 160s. Strip is not available for review from EMS. It went away with adenosine. She has never seen a cheese tester for this despite having 6 times in the past except for when she was in the hospital. SVT likely precipitated by excessive caffeine use in part. She likely has some underlying CAD given elevated troponin - Keep n.p.o. after midnight in case need for cardiac catheterization on 9/13 - Consult cardiology - Continue home metoprolol - Check echo - Adenosine as needed for SVT - Restart morphine ER 15 mg p.o. twice daily for short-term supply until she sees pain management on Wednesday 02/14-strongly advised against taking the massive amounts of aspirin that she is taking especially in the setting of gastric bypass surgery where she has high risk for anastomotic ulcers. Can use oxycodone as needed for breakthrough pain PG Care Time/CCT Total # of Minutes Spent Total Time Spent with Patient: Total time spent is greater than 50% in coordination of care (as documented) at patient's floor/unit and/or counseling patient: Coding [place] [address] INT INP/OBS CARE MIN Patient Type Established Medical Decision Making High Complexity Diagnoses SVT (supraventricular tachycardia) I47.10 Burning with urination R30.0 Painful total knee replacement, left T84.84XA; Z96.652 Encounter type: initial encounter Other chronic pain G89.29 Chronic pain type: other chronic pain Depression, unspecified depression type F32.A Depression Type: unspecified (3) Painful total knee replacement, left Encounter type: initial encounter Qualified Code(s): T84.84XA - Pain due to internal orthopedic prosthetic devices, implants and grafts, initial encounter; Z96.652 - Presence of left artificial knee joint (4) Chronic pain Chronic pain type: other chronic pain Qualified Code(s): G89.29 - Other chronic pain (5) Depression Depression Type: unspecified Qualified Code(s): F32.A - Depression, unspecified
[2025-02-10 17:52] LABS: Magnesium 2.1 mg/dl (1.7-2.4)
[2025-02-10] MEDS ORDERED: MELATONIN 3 MG TAB PO PRN (18:07)
[2025-02-10] MEDS ORDERED: ACETAMINOPHEN 325 MG TAB PO PRN (18:07)
[2025-02-10] MEDS ORDERED: EPINEPHrine INJ 1 MG/ML AMP IM PRN (18:19)
[2025-02-10] MEDS ORDERED: PNEUMOCOCCAL VACCINE (PCV20) 20-VAL CONJ-DIP CRM/PF 0.5 ML SYR IM ONE (18:35)
[2025-02-10] MEDS: ONDANSETRON INJ 2 MG/ML 2 ML VIAL IV PRN (18:49)
[2025-02-10] MEDS: POTASSIUM CHLORIDE / WTR 10 MEQ/100 ML PLCT IV ONE (20:00)
[2025-02-10] MEDS: HYDROmorphone INJ 0.5 MG/0.5 ML SYR IV STA (20:30)
[2025-02-10] MEDS: METOPROLOL SUCC 25MG EXT REL TAB PO SCH (20:32)
[2025-02-10 20:33] LABS: Appearance Urine Turbid (Clear); Bacteria Urine Automated 4+ (None Seen); Epithelial Cell Urine Auto 0-2 /hpf (0-2); Glucose Urine UA Negative (Negative); RBC Urine Automated >20 /hpf (0-2); WBC Urine Automated 21-50 /hpf (0-5)
[2025-02-10] MEDS: GABAPENTIN 600 MG TAB PO SCH (20:34)
[2025-02-10] MEDS: SENNA 8.6 MG TAB PO SCH (20:34)
[2025-02-10] MEDS: ENOXAPARIN INJ 40 MG/0.4 ML SYR SQ SCH (20:35)
[2025-02-10] MEDS: cefTRIAXone SODIUM 2,000 MG/50 ML BAG IV SCH (21:46)
[2025-02-10] MEDS: MoRPHine SULFATE CR 15 MG TABCR PO SCH (21:53)
--- NOTE | 2025-02-10 23:46 | Emergency Department Note ---
Impression & Plan Elevated troponin, H/O supraventricular tachycardia ED Provider Note NAME: IRVIN CERRATO AGE: 69 SEX: F : 1955 ARRIVES VIA: Ambulance INFORMANT: Patient, ED PROVIDER(S): Melissa Santillan MD CHIEF COMPLAINT: SVT, chest pain HPI: This is a 69-year-old female presenting for SVT/chest pain. Patient was in SVT prior to arrival to ER. She was in SVT at rate in the 160s as per EMS. She had a chest pain during this time patient notes that her vision was tunneling and she felt very dizzy and lightheaded. She did SVT numerous times before and this is the first time it is felt this severe. She had no associated chest pain or lightheadedness/dizziness with her episodes. She was given 6 mg of adenosine in the field with conversion to normal sinus rhythm. She noted persistent chest pain/shoulder pain in the ER upon arrival. Upon my interview, patient she has resolved symptoms. She reports persistent, chronic low back pain for which she is seeing pain management. ROS: See above HPI for pertinent positives & negatives. A total of 10 systems reviewed and were otherwise negative. PAST MEDICAL HISTORY: See Below PAST SURGICAL HISTORY: See Below FAMILY HISTORY: See Below SOCIAL HISTORY: See Below HOME MEDICATIONS: See Below ALLERGIES: See Below VITALS: See Below PHYSICAL EXAMINATION: General: resting comfortably in no acute distress Head: Normocephalic and atraumatic Eyes: Normal inspection, extraocular muscles intact Ear, nose, throat: Normal external exam Neck: Normal range of motion Respiratory: lungs clear to auscultation bilaterally Cardiovascular: Regular rate/rhythm, no murmur GI: soft, nontender, no guarding or rebound Extremities: nontender, moves all extremities Neuro: The patient awake and alert, appropriately conversive, no focal deficits, symmetric faces Skin: Warm, dry, and intact MEDICAL DECISION MAKING: This is a 69-year-old female sent for SVT/chest pain. Patient has resolved SVT here. She has chest pain upon arrival to the ER but resolved while I interviewed her. Will do screening EKG, blood work, troponin. - ECG independently interpreted by me with normal sinus rhythm, rate of 67, normal axis, normal MA, normal QRS, normal QTc, no ST segment elevations consistent with STEMI criteria - Bloodwork is reviewed showing no significant leukocytosis, anemia, electrolyte or creatinine abnormality - Initial troponin elevated at 81.8. She states she never had symptoms this severe with previous SVT episodes. Will admit for this elevated troponin - Chest Xray independently interpreted by me showing no pneumothorax, focal opacity, or pleural effusions. Differential diagnosis: ACS, PE, angina Independent History obtained from: EMS Diagnostics interpreted by me: ECG: See above Cardiac Monitoring: An order was placed for continuous cardiac monitoring. The monitor shows a rate of 68 with sinus rhythm. 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 Weakness (Acute) Ambulatory dysfunction (Acute) History of left knee replacement Ambulatory dysfunction Palpitations Shortness of breath (Acute) Elevated troponin (Acute) Current use of aspirin (Acute) SVT (supraventricular tachycardia) (Acute) Elevated troponin (Acute) CRP elevated Anastomotic ulcer Depression Hypertension hx Chronic pain syndrome Painful total knee replacement, left (Acute) Iron deficiency Hypokalemia Painful total knee replacement Adenoma Red blood cell antibody positive, compatible PRBC difficult to obtain Vitamin D insufficiency Anxiety Osteoarthritis Neuropathy Chronic pain Anemia (Acute) Medical History Gastric ulcer Gastritis Medical marijuana use has not used several years Diarrhea Melena Hx MRSA infection [facility] years ago, "it was in her blood" Irritable bowel syndrome with constipation Hepatitis C hx - treated History of anesthesia reaction hx of waking up during procedures Bulging discs Scoliosis Spinal stenosis Glaucoma Attention deficit disorder (ADD) Migraine GI bleed admitted to [facility] 06/2022; no current problems Surgical History H/O gastric bypass History of partial hysterectomy History of bilateral breast reduction surgery History of bilateral tubal ligation Status post right foot surgery x7--hardware in place Status post left foot surgery x7-hardware in place History of open reduction and internal fixation (ORIF) procedure right ankle--hardware in place History of fusion of cervical spine C4-C5--normal ROM History of right shoulder replacement History of total right hip replacement History of total left knee replacement (TKR) x2 History of colonoscopy History of esophagogastroduodenoscopy (EGD) History of cholecystectomy History of appendectomy History of mandibular surgery 1978--wired shut History of tooth extraction History of wisdom tooth extraction History of eye surgery right---scar tissue from cataract sx History of bilateral cataract extraction History of cardiac cath 2005 [facility]---"fistula in heart between 2 valves"--no stents; no cardio, just PCP History of lung biopsy right side--benign Family History Mother Colorectal cancer Father Lung cancer Family history of esophageal cancer Brother Family history of esophageal cancer Grandfather (Maternal) Family history of esophageal cancer Other No family history of adverse response to anesthesia Denies family history of Ovarian cancer Prostate cancer Myocardial infarction Breast cancer Social History Smoking Status: Never smoker Second Hand Exposure: No; Do You Dip or Chew Tobacco: No; Tobacco Cessation Education Requested by Patient: No Hx Alcohol Use: Yes Alcohol type: beer Hx Substance Use: No Preferred Language: Bruneian Communication Ability: Effective Visual Impairment: Limited Hearing Ability: Normal Dairy Quality Assurance Officer Required: No Beliefs That Will Affect Care: None marital status: Single Current Living Situation: Alone Current Living Situation Comment: live in one story home with her two cats current occupational status: retired How many Children do You have: 1 Other Information That Helps Us Care for You: No Feels Safe at Home: Yes Safety Concerns: Feels Safe At This Time Childhood Exposure to Second-Hand Smoke: No Diet: regular caffeine: No during the past year weight has: remained stable Dental Care, Regularly: Yes Physical Activity Frequency: 1-2 Times per Week Seatbelt Use: always Sunscreen Use: Yes Do you think of yourself as: straight/heterosexual Sexual Activity: has been sexually active, but not for at least 12 months Gender Identity: Female Assistive Devices: Cane, Glasses and Wheelchair Allergies Allergies Allergy/AdvReac Type Severity Reaction Status Date / Time bee venom protein (honey bee) Allergy Severe Anaphylaxis Verified 01/05/25 12:36 sulfamethoxazole Allergy Unknown at age 20, Verified 01/05/25 12:36 can not remember what happened trimethoprim Allergy Unknown at age 20, Verified 01/05/25 12:36 can not remember what happened aripiprazole [From Abilify] AdvReac Severe Tremors Verified 01/05/25 12:36 lactose AdvReac Intermediate MILK & ICE Verified 01/05/25 12:36 CREAM--DIARRHEA metoclopramide [From Reglan] AdvReac Intermediate TONGUE Verified 01/05/25 12:36 "TICS" Home Meds Home Medications Medication Instructions Recorded Confirmed bupropion HCl 150 mg 24 hr tablet, 150 mg PO QAM 06/03/22 02/10/25 extended release (Wellbutrin XL) bupropion HCl 300 mg 24 hr tablet, 300 mg PO QAM 06/03/22 02/10/25 extended release (Wellbutrin XL) tafluprost (PF) 0.0015 % eye drops 2 drp OPB HS 09/24/23 02/10/25 in a dropperette timolol maleate 0.5 % eye drops 1 drp OPB QAM 09/24/23 02/10/25 epinephrine 0.3 mg/0.3 mL 0.3 mg IM DIRECTED PRN Allergic 11/29/23 02/10/25 injection, auto-injector (EpiPen) Reaction loperamide 2 mg capsule (Imodium 2 mg PO Q6H PRN Diarrhea 06/17/24 02/10/25 A-D) duloxetine 20 mg capsule,delayed 20 mg PO QAM 08/03/24 02/10/25 release gabapentin 600 mg tablet 1,800 mg PO BID 08/04/24 02/10/25 diphenhydramine HCl 25 mg capsule 25 mg PO DAILY PRN Allergy Symptoms 09/06/24 02/10/25 (Benadryl) lactase 3,000 unit tablet 3,000 unit PO TIDM PRN WITH MILK 11/20/24 02/10/25 (Dairy-Aid) PRODUCTS NEEDED Previous Rx's Medication Instructions Recorded sumatriptan succinate 50 mg tablet 50 mg PO DAILY PRN migraine 11/01/24 headache #30 tabs sumatriptan succinate 100 mg tablet 100 mg PO DAILY PRN Migraine 12/16/24 Headache #30 tabs losartan 25 mg tablet 25 mg PO QAM #90 tabs 12/22/24 metoprolol succinate 25 mg 25 mg PO BID #180 tabs 12/22/24 tablet,extended release 24 hr ondansetron 8 mg disintegrating 8 mg PO Q8H #90 tabs 01/05/25 tablet acetaminophen 325 mg tablet 650 mg (2 x 325 mg) PO Q4H PRN 02/01/25 fever or pain #60 tabs hydroxyzine HCl 10 mg tablet 10 mg PO HS PRN itching #30 tabs 02/01/25 oxycodone 5 mg tablet 10 mg (2 x 5 mg) PO Q6H PRN pain 02/01/25 #40 tabs pantoprazole 40 mg tablet,delayed 40 mg PO BID #60 tabs 02/01/25 release sennosides 8.6 mg tablet (Senna 8.6 mg PO HS #30 tabs 02/01/25 Laxative) Results & Data (ED) Vital Signs Vital Signs - 24 hr 02/10/25 14:54 02/10/25 15:05 02/10/25 16:03 Temperature 37.3 C Temperature Source Oral Pulse Rate 83 79 74 Respiratory Rate 18 20 Respiratory Effort / Characteristics Non-Labored Spontaneous Respiratory Depth Normal Respiratory Pattern Regular Blood Pressure 101/63 139/69 Blood Pressure Mean 75 92 Pulse Oximetry 95 96 Oxygen Delivery Method Room Air Sepsis Recent Fever Within 48 Hours No Sepsis New/Unexplained Change in Mental Status No Sepsis Action Taken by Nursing No Action Required 02/10/25 17:00 Temperature Temperature Source Pulse Rate 76 Respiratory Rate 17 Respiratory Effort / Characteristics Respiratory Depth Respiratory Pattern Blood Pressure 113/77 Blood Pressure Mean 89 Pulse Oximetry Oxygen Delivery Method Sepsis Recent Fever Within 48 Hours Sepsis New/Unexplained Change in Mental Status Sepsis Action Taken by Nursing Laboratory Data 02/10/25 15:02 02/10/25 15:02 Lab Results 02/10/25 Range/Units 15:02 WBC 7.92 (4.8-10.8) K/ul RBC 4.57 (4.20-5.40) M/uL Hgb 12.3 (12.0-16.0) g/dl Hct 37.9 (37.0-47.0) % MCV 82.9 (80.0-100.0) fL MCH 26.9 (25.0-34.0) pg MCHC 32.5 (32.0-36.0) g/dL RDW Std Deviation 47.0 H (36.4-46.3) fL RDW Coeff of Faizan 15.6 H (11.5-14.5) % Plt Count 321 (130-400) K/uL MPV 9.1 L (9.4-12.4) fL Immature Gran % (Auto) 0.4 % Neut % (Auto) 64.7 % Lymph % (Auto) 24.0 % [place] % (Auto) 8.7 % Eos % (Auto) 1.9 % Baso % (Auto) 0.3 % Neut # (Auto) 5.13 (1.40-6.50) K/uL Lymph # (Auto) 1.90 (1.20-3.40) K/uL [place] # (Auto) 0.69 H (0.11-0.59) K/uL Eos # (Auto) 0.15 (0.00-0.50) K/uL Baso # (Auto) 0.02 (0.00-0.20) K/uL Immature Gran # (Auto) 0.03 (0.01-0.20) K/uL Sodium 141 (136-145) mmol/L Potassium 3.9 (3.5-5.1) mmol/L Chloride 106 (98-107) mmol/L Carbon Dioxide 27 (21-32) mmol/L Anion Gap 8 (3-11) BUN 20 (6-23) mg/dl Creatinine 0.75 (0.6-1.2) mg/dl Est Cr Clr Drug Dosing 76.7 ml/min eGFR 86.67 BUN/Creatinine Ratio 26.7 H (10-20) Glucose 89 (70-99(Fasting)) mg/dl Calcium 8.8 (8.6-10.3) mg/dl Magnesium 2.1 (1.7-2.4) mg/dl Total Bilirubin 0.5 (0.2-1.0) mg/dl AST 15 (13-39) U/L ALT 11 (7-52) U/L Alkaline Phosphatase 83 (34-104) U/L Troponin I High Sens 81.8 H* (0-14) pg/ml C-Reactive Protein 0.54 H (0-0.5) mg/dl Total Protein 6.8 (6.0-8.3) gm/dl Albumin 3.6 (3.4-5.0) gm/dl Globulin 3.2 (2.5-4.0) gm/dl Albumin/Globulin Ratio 1.1 (0.9-2) Lipase 17 (11-82) U/L Administered Medications Enoxaparin Sodium (Enoxaparin Inj 40 Mg/0.4 Ml Syr) 40 mg SQ Q24H TON Stop: 03/12/25 20:59 Last Admin: 02/10/25 20:35 Dose: 40 mg Documented By: DOUGLAS Gabapentin (Gabapentin 600 Mg Tab) 1,800 mg PO BID TON Stop: 03/12/25 20:59 Last Admin: 02/10/25 20:34 Dose: 1,800 mg Documented By: DOUGLAS Hydroxyzine HCl (Hydroxyzine Hcl 10 Mg Tab) 10 mg PO HS PRN PRN Reason: itching Stop: 03/12/25 18:06 Last Admin: 02/10/25 23:20 Dose: 10 mg Documented By: DOUGLAS Ceftriaxone Sodium (Rocephin) 2,000 mg in 50 mls @ 100 mls/hr IV Q24H TON Stop: 02/15/25 20:59 Last Infusion: 02/10/25 22:16 Dose: Infused Documented By: Admin: 02/10/25 21:46 Dose: 100 mls/hr Documented By: DOUGLAS Metoprolol Succinate (Metoprolol Succ 25mg Ext Rel Tab) 25 mg PO BID TON Stop: 03/12/25 20:59 Last Admin: 02/10/25 20:32 Dose: Not Given Documented By: DOUGLAS Miscellaneous (Order Awaiting Action) 1 each N/A QS TON Stop: 03/12/25 18:29 Last Admin: 02/10/25 20:19 Dose: Not Given Documented By: DOUGLAS Morphine Sulfate (Morphine Sulfate Cr 15 Mg Tabcr) 15 mg PO Q12H TON Stop: 02/24/25 21:44 Last Admin: 02/10/25 21:53 Dose: 15 mg Documented By: DOUGLAS Ondansetron HCl (Ondansetron Inj 2 Mg/Ml 2 Ml Vial) 4 mg IV Q6H PRN PRN Reason: Nausea Stop: 03/12/25 18:06 Last Admin: 02/10/25 18:49 Dose: 4 mg Documented By: CHAVO Oxycodone HCl (Oxycodone Hcl Ir 5 Mg Tab (Immediate Release)) 10 mg PO Q6H PRN PRN Reason: pain Stop: 02/24/25 18:06 Last Admin: 02/10/25 18:50 Dose: 10 mg Documented By: CHAVO Pantoprazole Sodium (Pantoprazole 40 Mg Tab) 40 mg PO BID TON Stop: 03/12/25 20:59 Last Admin: 02/10/25 20:34 Dose: 40 mg Documented By: DOUGLAS Sennosides (Senna 8.6 Mg Tab) 8.6 mg PO HS TON Stop: 03/12/25 20:59 Last Admin: 02/10/25 20:34 Dose: 8.6 mg Documented By: DOUGLAS Discontinued Medications Hydromorphone HCl (Hydromorphone Inj 0.5 Mg/0.5 Ml Syr) 0.25 mg IV NOW STA Stop: 02/10/25 20:21 Last Admin: 02/10/25 20:30 Dose: 0.25 mg Documented By: DOUGLAS Potassium Chloride (K Magdy / Wtr) 10 meq in 100 mls @ 100 mls/hr IV ONE ONE Stop: 02/10/25 20:00 Last Infusion: 02/10/25 21:00 Dose: Infused Documented By: Admin: 02/10/25 20:00 Dose: 100 mls/hr Documented By: DOUGLAS Ketorolac Tromethamine (Ketorolac Tromethamine 15 Mg/Ml Vial) 15 mg IV NOW ONE Stop: 02/10/25 16:02 Last Admin: 02/10/25 16:17 Dose: 15 mg Documented By: DELIA Oxycodone HCl (Oxycodone Hcl Ir 5 Mg Tab (Immediate Release)) 5 mg PO NOW STA Stop: 02/10/25 16:02 Last Admin: 02/10/25 16:17 Dose: 5 mg Documented By: DELIA Imaging Data Radiologist's Impression: Chest X-Ray 02/10/25 15:16 XR chest 1V portable CLINICAL HISTORY: Chest pain, nonspecific COMPARISON STUDY: 11/20/2024 FINDINGS: Heart size and pulmonary vasculature are normal. No consolidation or pleural effusion. No pneumothorax. IMPRESSION: No acute findings. ACT 112: Negative or not required by law. Electronically signed by: Paulino Bell M.D. 02/10/2025 3:58 PM Discharge Plan Visit Data Chief Complaint: Cardiac Assessment ED Provider: Melissa Santillan Discharge Problem: Elevated troponin, H/O supraventricular tachycardia Patient Disposition: Admitted As Inpatient Condition: Fair Discharge Instructions Interventions: ED Discharge Assessment Last Done: 02/10/25 17:27
[2025-02-11] MEDS ORDERED: ACETAMINOPHEN 500 MG TAB PO PRN (00:47)
[2025-02-11] MEDS: HYDROmorphone INJ 0.5 MG/0.5 ML SYR IV STA ×2 (01:07→04:00)
[2025-02-11] MEDS: ACETAMINOPHEN 1,000 MG/100 ML VIAL IV PRN (01:08)
[2025-02-11 05:44] LABS: Hematocrit (blood only) 33.7 % (37.0-47.0); Hemoglobin 11.0 g/dl (12.0-16.0); Immature Granulocytes # (auto) 0.02 K/uL (0.01-0.20); Immature Granulocytes % (auto) 0.4 %; Mean Corpuscular Hemoglobin 27.0 pg (25.0-34.0); Mean Corpuscular Volume 82.8 fL (80.0-100.0); Platelet Count 237 K/uL (130-400); RDW Standard Deviation 46.6 fL (36.4-46.3); Red Blood Count 4.07 M/uL (4.20-5.40); White Blood Count 4.73 K/ul (4.8-10.8)
[2025-02-11 05:59] LABS: Magnesium 2.0 mg/dl (1.7-2.4)
--- NOTE | 2025-02-11 06:01 | Electrocardiogram Report ---
Test Reason : Blood Pressure : */* mmHG Vent. Rate : 83 BPM Atrial Rate : 83 BPM P-R Int : 172 ms QRS Dur : 72 ms QT Int : 354 ms P-R-T Axes : 10 -8 22 degrees QTcB Int : 415 ms Normal sinus rhythm Normal ECG When compared with ECG of 20-Nov-2024 18:08, QRS duration has decreased Confirmed by Dayton Hagan ([id number]) on 02/11/2025 6:01:44 AM Referred By: Confirmed By: Dayton Hagan
[2025-02-11 06:57] LABS: Anion Gap 5.0 (3-11); Calcium 8.7 mg/dl (8.6-10.3); Carbon Dioxide 29.0 mmol/L (21-32); Chloride 105.0 mmol/L (98-107); Potassium 4.1 mmol/L (3.5-5.1); Sodium 139.0 mmol/L (136-145)
[2025-02-11 07:03] LABS: Blood Urea Nitrogen 17.0 mg/dl (6-23); Creatinine Clr Calc Pharmacy 84.1 ml/min; Glucose 106.0 mg/dl (70-99(Fasting))
[2025-02-11] MEDS: SODIUM CHLORIDE 0.9% 500 ML IV SCH (08:35)
[2025-02-11] MEDS: LOSARTAN POTASSIUM 25 MG TAB PO SCH (08:36)
[2025-02-11] MEDS: TIMOLOL MALEATE 0.5% OP SOLN 5 ML BTL OPB SCH (08:37)
--- NOTE | 2025-02-11 11:19 | Hospitalist Progress Note ---
"Date of Service February 11, 2025 Assessment & Plan (1) SVT (supraventricular tachycardia): (2) Painful total knee replacement, left: (3) Chronic pain: (4) Depression: (5) Caffeine use: (6) Excessive use of nonsteroidal anti-inflammatory drug (NSAID): (7) Acute UTI: Plan This patient is a 69-year-old female with PMH of recurrent SVTs who presented on 02/10 for acute onset of chest palpitations, chest pain, SOB, dizziness, and vision changes. She was found to be in SVT at 160 bpm on EMS arrival. Patient received adenosine 6 mg IV x 1 en route. #Episode of SVT | elevated troponin Patient remains hemodynamically stable; chest pain free on 02/11 EKG on arrival revealed NSR without acute ischemic changes when compared to October 2024 Repeat EKG revealed no acute changes ischemic changes or ST elevations approximate 5 hours after initial EKG was taken Troponin trend: 81 -> 497 -> 526 -> 395 Suspect this is secondary to ischemia in the setting of tachyarrhythmia Last echocardiogram on 06/22/2024 revealed LVEF at 60-65%; grade 1 diastolic dysfunction Repeat echocardiogram still pending Patient is unsure what triggers her episodes of SVT, but possible culprits include (1) back pain/spasm that proceeded episode, (2) recurrence of UTI, and (3) financial stressors, among other etiologies Continuous telemetry to monitor for reoccurrence Keep K >4, mag >2 If SVT recurs, attempt vasovagal maneuver and recommend repeating the last effective dose of adenosine (6 mg IV) If SVT is refractory to adenosine 6 mg/12 mg/18 mg IV x 3, administer AV rayne blocking agent [facility] consult appreciated #Caffeine use | excessive use of NSAIDs Patient reports that she was using Chelsea back & body extra strength tablets at home (5 tablets TID for a total of 15 tabs daily) This medication includes aspirin 500 mg and caffeine 32.5 mg per tablet Per review of admission from October 2024, patient does have history of significant gastric ulcer in 2022 due to large amount of NSAID/aspirin use High risk for PUD/gastritis Suspect caffeine may also be contributing to her recurrent SVT Continue Protonix 40 mg twice daily for GI PPx Strongly recommended that the patient discontinue this medication upon discharge # Acute UTI [place] hospitalization 01/29 - 02/01 for acute UTI UCx 01/28 grew Klebsiella pneumonia with sensitivity to cephalosporins Treated with p.o. cephalexin while in the hospital Recurrence of urinary symptoms on arrival (burning with urination) UA positive with 4+ bacteria on arrival Initiate ceftriaxone 2000 mg IV q24h Follow current UCx ? Potential trigger for SVT #Loosening of left TKR hardware | left knee pain Left knee is large and swollen when compared to the right knee on clinical exam Not warm to touch, not erythematous; no joint effusion appreciated ESR WNL and CRP minimally L Seen by orthopedics during her most recent admission 01/29 Consistent with aseptic loosening at that time Would benefit from revision of total left knee arthroplasty #Chronic pain syndrome | narcotic dependence Patient requesting p.o. morphine rather than oxycodone as this has worked better for her in the past Verified in PDMP that she has had p.o. morphine in the past Morphine 15 mg p.o. q12h PRN while in the hospital #HTN Continue metoprolol, losartan #Neuropathy Continue gabapentin at home doses (1800mg BID) # Depression and anxiety Continue Wellbutrin, Cymbalta It should be noted that patient was on suicide precautions during her most recent admission Cleared by psych on 01/30 #Glaucoma Continue home drops or substitutions #History of gastric bypass Noted Disposition: Continued stay on PCU telemetry VTE PPx: Lovenox 40 mg SQ q24h Admission and Anticipated Discharge Date Admission Date: February 10, 2025 Supervising Physician Co-Signing Physician Notes Attending Attestation - Chart reviewed, care plan d/w REFUGIO Gonzales. I agree w/ the delacruz components of his documentation. Bill Rodriguez MD Subjective Mrs. Mcgraw is upset this morning, she was made n.p.o. without being told why. Explained that patient's troponin levels showed up to >500 overnight, and she was empirically made n.p.o. in the event that she would require a cardiac catheterization today. Patient appreciative of update. She denies any recurrence of chest palpitations overnight. Patient is chest pain-free this morning. She is still exhibiting burning with urination, but reports it is better this morning than compared to yesterday. No BMs. She had difficulty sleeping last night. In regard to her home regimen for pain control, she reports that morphine p.o. tends to work better than oxycodone. She also endorses that she has been using Chelsea back and body x 2 years. She was taking 15 tablets of this per day up until recently. Strongly encouraged patient to stop taking this medication upon discharge. ROS: Patient endorses mild abdominal bloating, and burning with urination (which is improving from prior). Patient denies fever, chills, night sweats, chest pain, chest palpitations, SOB, cough, abdominal pain, N/V/D, or numbness or tingling in the arms. Review of Systems Review of Systems: See HPI above Physical Exam Physical Exam: General: no acute distress; non-toxic appearing; well-nourished; cooperative; SpO2 95% on RA HEENT: normocephalic, atraumatic; no scleral icterus; PERRLA; vision and hearing intact Neck: supple; trachea midline Skin: warm, dry without signs of tenting; no cyanosis; no rashes, bruising, lesions, or erythema noted CV: Left side of chest wall is mildly TTP; no rashes appreciated in the chest wall; RRR around 60 bpm; pulses intact and symmetric at radial, DP, and PT Lungs: no acute respiratory distress; symmetrical chest wall expansion; clear breath sounds across all lung arthur w/o adventitious sounds; no wheezing ABD: Soft, mildly TTP in the epigastric region; BS present; no rebound/guarding; no distention MSK: no tics or fasciculations; no edema noted in the LEs b/l, nonerythematous; patient's left knee is large/swollen when compared to the right, not warm to touch, nonerythematous; no joint effusion appreciated Neuro: A&Ox3; normal mood and affect; fluent speech; no focal deficits; diminished sensation in the right lower extremity when compared to the left (assessed via light touch at the knees) Results & Data Results & Data Vital Signs (Past 12 Hours) Vital Signs Temp Pulse Pulse Resp BP BP Pulse Ox 02/11/25 11:04 59 L 02/11/25 07:22 36.5 C 67 18 110/64 94 02/11/25 04:09 76 02/11/25 03:16 36.4 C L 64 16 109/62 94 02/10/25 23:40 36.8 C 68 16 100/64 95 O2 Del Method 02/11/25 11:04 02/11/25 07:22 Room Air 02/11/25 04:09 02/11/25 03:16 Room Air 02/10/25 23:40 Room Air PG Care Time/CCT Total # of Minutes Spent Total Time Spent with Patient: Total time spent is greater than 50% in coordination of care (as documented) at patient's floor/unit and/or counseling patient: Coding [place] [address] SUB INP/OBS CARE 3/50MIN Patient Type Established Medical Decision Making High Complexity Diagnoses SVT (supraventricular tachycardia) I47.10 Painful total knee replacement, left T84.84XA; Z96.652 Encounter type: initial encounter Other chronic pain G89.29 Chronic pain type: other chronic pain Depression, unspecified depression type F32.A Depression Type: unspecified Caffeine use Z78.9 Excessive use of nonsteroidal anti-inflammatory drug (NSAID) F19.90 Acute UTI N39.0 (2) Painful total knee replacement, left Encounter type: initial encounter Qualified Code(s): T84.84XA - Pain due to internal orthopedic prosthetic devices, implants and grafts, initial encounter; Z96.652 - Presence of left artificial knee joint (3) Chronic pain Chronic pain type: other chronic pain Qualified Code(s): G89.29 - Other chronic pain (4) Depression Depression Type: unspecified Qualified Code(s): F32.A - Depression, unspecified"
--- NOTE | 2025-02-11 11:46 | Cardiology Consultation ---
<Statement entered by Leighann Lilly, DO - 02/11/25 15:27> I have reviewed the advanced practitioner's documentation and agree with the plan of care. I accept the responsibility for the associated risk. Pt seen in cardiology consultation due to recurrent symptomatic SVT requiring adenosine; pt has sudden on set of symptoms and her SVT is associated with CP, lightheadedness. She is having an increase frequency of them. She reports in 2001 having some cardiac procedure in [place] (sounds like possible cath) where she was told she has some fistula and needs to always have antibiotics prior to dental work. I have asked her to get me those records if she can. From a cardiac perspective she needs to have an outpatient EPS and possible ablation; but I would first recommend at minimum a cardiac CT given the high degree of topronin levels she has wtih the episodes. Echo today looked good normal EF no segmental wall motion abnormality. Would monitor her overnight and then if still doing well discharge home. She has an appointment to see me this upcoming week. I discussed the case and my recommendations with the hospitalist over the phone and he agreed with my plan My Nurse practioner and I spent a total of [90] minutes coordinating, documenting, and providing care for this patient excluding time spent in the performance of separately billed services or time spent by another provider/QHP. 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: (5) Chronic pain syndrome: (6) Painful total knee replacement, left: Plan -HR and BP currently well controlled -SVT managed prior to arrival with adenosine, no ECG currently available to review of the elevated HR during the event - symptoms that she had during this episode were more severe than her previous episodes of SVT -troponin also markedly elevated which has peaked and is now downtrending, likely due to tachycardia -ECGs reviewed from yesterday indicate NSR with stable intervals, no acute ischemic changes noted -will likely benefit from EPS but would be best done as an outpatient and after full review of her prior cardiac records. -reports some low BP reading with dizziness at home, decrease to 12.5 mg losartan at discharge -continue to monitor on tele for one more night to be sure there are no recurrent episodes of SVT -if no recurrence can d/c to home tomorrow with outpatient follow up in the EP clinic planned for 02/17/25, patient is aware and agreeable to the plan Case discussed with Dr. Lilly. Please see attestation for additional recommendations. [facility] [place] Department of Cardiology, [facility] This chart was completed in part utilizing Speech Voice Recognition Software. Grammatical errors, random word insertions, pronoun errors, and incomplete sentences are an occasional consequence of this system due to software limitations, ambient noise, and hardware issues. Any formal questions or conc erns about the content, text, or information contained within the body of this dictation should be directly addressed to the provider for clarification. History of Present Illness Reason for Consultation: SVT Requesting Physician: Hospitalist Attending Physician: Bill Rodriguez MD History of Present Illness 69 year old female seen in consultation today in regard to SVT. She presented to the emergency room yesterday developing chest pain, lightheadedness, dizziness with vision changes prompting her to call EMS. When they arrived they found her to be in SVT which they managed with 6 mg of IV adenosine and she subsequently started to sinus rhythm. Even after this she had persistent chest and shoulder pain after arrival to the emergency room however her symptoms did alleviate after she was given pain medication. She has had previous episodes of SVT most recent episode was beginning of this year also managed with IV adenosine. Did have worse back pain yesterday than her typical chronic pain and had a severe spasm just prior to the onset of the episode of SVT. Denies caffeine use but does have some increased life stress due to financial changes with her Social Security benefits. Reports a prior cardiac workup at [facility]. Allergies Allergy/AdvReac Type Severity Reaction Status Date / Time bee venom protein (honey bee) Allergy Severe Anaphylaxis Verified 01/05/25 12:36 sulfamethoxazole Allergy Unknown at age 20, Verified 01/05/25 12:36 can not remember what happened trimethoprim Allergy Unknown at age 20, Verified 01/05/25 12:36 can not remember what happened aripiprazole [From Abilify] AdvReac Severe Tremors Verified 01/05/25 12:36 lactose AdvReac Intermediate MILK & ICE Verified 01/05/25 12:36 CREAM--DIARRHEA metoclopramide [From Reglan] AdvReac Intermediate TONGUE Verified 01/05/25 12:36 "TICS" Home Medications Medication Instructions Recorded Confirmed Type bupropion HCl 150 mg 24 hr tablet, 150 mg PO QAM 06/03/22 02/10/25 History extended release (Wellbutrin XL) bupropion HCl 300 mg 24 hr tablet, 300 mg PO QAM 06/03/22 02/10/25 History extended release (Wellbutrin XL) tafluprost (PF) 0.0015 % eye drops 2 drp OPB HS 09/24/23 02/10/25 History in a dropperette timolol maleate 0.5 % eye drops 1 drp OPB QAM 09/24/23 02/10/25 History epinephrine 0.3 mg/0.3 mL 0.3 mg IM DIRECTED PRN Allergic 11/29/23 02/10/25 History injection, auto-injector (EpiPen) Reaction loperamide 2 mg capsule (Imodium 2 mg PO Q6H PRN Diarrhea 06/17/24 02/10/25 History A-D) duloxetine 20 mg capsule,delayed 20 mg PO QAM 08/03/24 02/10/25 History release gabapentin 600 mg tablet 1,800 mg PO BID 08/04/24 02/10/25 History diphenhydramine HCl 25 mg capsule 25 mg PO DAILY PRN Allergy Symptoms 09/06/24 02/10/25 History (Benadryl) sumatriptan succinate 50 mg tablet 50 mg PO DAILY PRN migraine 11/01/24 02/10/25 Rx headache #30 tabs lactase 3,000 unit tablet 3,000 unit PO TIDM PRN WITH MILK 11/20/24 02/10/25 History (Dairy-Aid) PRODUCTS NEEDED sumatriptan succinate 100 mg tablet 100 mg PO DAILY PRN Migraine 12/16/24 02/10/25 Rx Headache #30 tabs losartan 25 mg tablet 25 mg PO QAM #90 tabs 12/22/24 02/10/25 Rx metoprolol succinate 25 mg 25 mg PO BID #180 tabs 12/22/24 02/10/25 Rx tablet,extended release 24 hr ondansetron 8 mg disintegrating 8 mg PO Q8H #90 tabs 01/05/25 02/10/25 Rx tablet acetaminophen 325 mg tablet 650 mg (2 x 325 mg) PO Q4H PRN 02/01/25 02/10/25 Rx fever or pain #60 tabs hydroxyzine HCl 10 mg tablet 10 mg PO HS PRN itching #30 tabs 02/01/25 02/10/25 Rx oxycodone 5 mg tablet 10 mg (2 x 5 mg) PO Q6H PRN pain 02/01/25 02/10/25 Rx #40 tabs pantoprazole 40 mg tablet,delayed 40 mg PO BID #60 tabs 02/01/25 02/10/25 Rx release sennosides 8.6 mg tablet (Senna 8.6 mg PO HS #30 tabs 02/01/25 02/10/25 Rx Laxative) Patient History Medical History Gastric ulcer Gastritis Medical marijuana use has not used several years Diarrhea Melena Hx MRSA infection dx [facility] years ago, "it was in her blood" Irritable bowel syndrome with constipation Hepatitis C hx - treated History of anesthesia reaction hx of waking up during procedures Bulging discs Scoliosis Spinal stenosis Glaucoma Attention deficit disorder (ADD) Migraine GI bleed admitted to [facility] 06/2022; no current problems Surgical History H/O gastric bypass History of partial hysterectomy History of bilateral breast reduction surgery History of bilateral tubal ligation Status post right foot surgery x7--hardware in place Status post left foot surgery x7-hardware in place History of open reduction and internal fixation (ORIF) procedure right ankle--hardware in place History of fusion of cervical spine C4-C5--normal ROM History of right shoulder replacement History of total right hip replacement History of total left knee replacement (TKR) x2 History of colonoscopy History of esophagogastroduodenoscopy (EGD) History of cholecystectomy History of appendectomy History of mandibular surgery 1978--wired shut History of tooth extraction History of wisdom tooth extraction History of eye surgery right---scar tissue from cataract sx History of bilateral cataract extraction History of cardiac cath 2005 @ [facility]---"fistula in heart between 2 valves"--no stents; no cardio, just PCP History of lung biopsy right side--benign Family History Mother Colorectal cancer Father Lung cancer Family history of esophageal cancer Brother Family history of esophageal cancer Grandfather (Maternal) Family history of esophageal cancer Other No family history of adverse response to anesthesia Denies family history of Ovarian cancer Prostate cancer Myocardial infarction Breast cancer Social History Smoking Status: Never smoker Second Hand Exposure: No; Do You Dip or Chew Tobacco: No; Tobacco Cessation Education Requested by Patient: No Hx Alcohol Use: Yes Alcohol type: beer Hx Substance Use: No Preferred Language: Martiniquais Communication Ability: Effective Visual Impairment: Limited Hearing Ability: Normal Floor Press Operator Required: No Beliefs That Will Affect Care: None marital status: Single Current Living Situation: Alone Current Living Situation Comment: live in one story home with her two cats current occupational status: retired How many Children do You have: 1 Other Information That Helps Us Care for You: No Feels Safe at Home: Yes Safety Concerns: Feels Safe At This Time Childhood Exposure to Second-Hand Smoke: No Diet: regular caffeine: No during the past year weight has: remained stable Dental Care, Regularly: Yes Physical Activity Frequency: 1-2 Times per Week Seatbelt Use: always Sunscreen Use: Yes Do you think of yourself as: straight/heterosexual Sexual Activity: has been sexually active, but not for at least 12 months Gender Identity: Female Assistive Devices: Cane, Glasses and Wheelchair Review of Systems Review of Systems: All systems reviewed & are unremarkable except as noted in HPI & below Physical Exam Constitutional: WD/WN, vitals as above well developed and well nourished; no acute distress Eyes: PERRL, conjunctivae normal, anicteric sclerae Neck: trachea midline, no thyromegaly Respiratory: normal respiratory effort, lungs clear to auscultation Cardiovascular: Rate/Rhythm: regular rate and regular rhythm Heart Sounds: normal S1 and normal S2; no murmur Gastrointestinal (Abdomen): normal bowel sounds, soft, nontender, no hepatosplenomegaly Musculoskeletal: no cyanosis or clubbing, extremities motor strength 5/5 Skin: no rashes, warm and dry Results & Data Vital Signs (Past 12 Hours) Vital Signs Temp Pulse Pulse Resp BP BP Pulse Ox 02/11/25 11:04 59 L 02/11/25 07:22 36.5 C 67 18 110/64 94 02/11/25 04:09 76 02/11/25 03:16 36.4 C L 64 16 109/62 94 02/10/25 23:40 36.8 C 68 16 100/64 95 O2 Del Method 02/11/25 11:04 02/11/25 07:22 Room Air 02/11/25 04:09 02/11/25 03:16 Room Air 02/10/25 23:40 Room Air Laboratory Results Cardiac Enzymes 02/10/25 02/10/25 02/10/25 Range/Units 15:02 17:50 23:21 AST 15 (13-39) U/L Troponin I High Sens 81.8 H* 497.6 H* D 526.6 H* (0-14) pg/ml 02/11/25 Range/Units 05:24 AST (13-39) U/L Troponin I High Sens 395.1 H* D (0-14) pg/ml CBC 02/10/25 02/11/25 Range/Units 15:02 05:24 WBC 7.92 4.73 L (4.8-10.8) K/ul RBC 4.57 4.07 L (4.20-5.40) M/uL Hgb 12.3 11.0 L (12.0-16.0) g/dl Hct 37.9 33.7 L (37.0-47.0) % Plt Count 321 237 (130-400) K/uL Neut # (Auto) 5.13 1.97 (1.40-6.50) K/uL Lymph # (Auto) 1.90 2.01 (1.20-3.40) K/uL [place] # (Auto) 0.69 H 0.49 (0.11-0.59) K/uL Eos # (Auto) 0.15 0.21 (0.00-0.50) K/uL Baso # (Auto) 0.02 0.03 (0.00-0.20) K/uL Comprehensive Metabolic Panel 02/10/25 02/11/25 Range/Units 15:02 05:24 Sodium 141 139 (136-145) mmol/L Potassium 3.9 4.1 (3.5-5.1) mmol/L Chloride 106 105 (98-107) mmol/L Carbon Dioxide 27 29 (21-32) mmol/L BUN 20 17 (6-23) mg/dl Creatinine 0.75 0.68 (0.6-1.2) mg/dl Glucose 89 106 H (70-99(Fasting)) mg/dl Calcium 8.8 8.7 (8.6-10.3) mg/dl AST 15 (13-39) U/L ALT 11 (7-52) U/L Alkaline Phosphatase 83 (34-104) U/L Total Protein 6.8 (6.0-8.3) gm/dl Albumin 3.6 (3.4-5.0) gm/dl Intake and Output 02/10/25 02/11/25 02/11/25 22:59 06:59 14:59 Intake Total 150 / 250 100 / 250 Balance 150 / 250 100 / 250 Intake: IV 150 / 250 100 / 250 Acetaminophen 1,000 mg In 100 100 / 100 ml @ 400 mls/hr IV Q8H PRN Rx#: [id number] Potassium Chloride / Wtr 10 meq 100 / 100 In 100 ml @ 100 mls/hr IV ONE ONE Rx#:[id number] cefTRIAXone SODIUM 2,000 mg In 50 / 50 50 ml @ 100 mls/hr IV Q24H TON Rx#:[id number] Other: # Unmeasured Voids 1 Weight 84.368 kg Weight Measurement Method Built in [facility] Diagnostic Findings Laboratory Results WBC 4.73 K/ul (4.8-10.8) L 02/11/25 05:24 RBC 4.07 M/uL (4.20-5.40) L 02/11/25 05:24 Hgb 11.0 g/dl (12.0-16.0) L 02/11/25 05:24 Hct 33.7 % (37.0-47.0) L 02/11/25 05:24 MCV 82.8 fL (80.0-100.0) 02/11/25 05:24 MCH 27.0 pg (25.0-34.0) 02/11/25 05:24 MCHC 32.6 g/dL (32.0-36.0) 02/11/25 05:24 RDW Std Deviation 46.6 fL (36.4-46.3) H 02/11/25 05:24 RDW Coeff of Faizan 15.3 % (11.5-14.5) H 02/11/25 05:24 Plt Count 237 K/uL (130-400) 02/11/25 05:24 MPV 8.5 fL (9.4-12.4) L 02/11/25 05:24 Immature Gran % (Auto) 0.4 % 02/11/25 05:24 Neut % (Auto) 41.7 % 02/11/25 05:24 Lymph % (Auto) 42.5 % 02/11/25 05:24 [place] % (Auto) 10.4 % 02/11/25 05:24 Eos % (Auto) 4.4 % 02/11/25 05:24 Baso % (Auto) 0.6 % 02/11/25 05:24 Neut # (Auto) 1.97 K/uL (1.40-6.50) 02/11/25 05:24 Lymph # (Auto) 2.01 K/uL (1.20-3.40) 02/11/25 05:24 [place] # (Auto) 0.49 K/uL (0.11-0.59) 02/11/25 05:24 Eos # (Auto) 0.21 K/uL (0.00-0.50) 02/11/25 05:24 Baso # (Auto) 0.03 K/uL (0.00-0.20) 02/11/25 05:24 Immature Gran # (Auto) 0.02 K/uL (0.01-0.20) 02/11/25 05:24 ESR 20 mm/hr (0-30) 02/10/25 17:50 Sodium 139 mmol/L (136-145) 02/11/25 05:24 Potassium 4.1 mmol/L (3.5-5.1) 02/11/25 05:24 Chloride 105 mmol/L (98-107) 02/11/25 05:24 Carbon Dioxide 29 mmol/L (21-32) 02/11/25 05:24 Anion Gap 5 (3-11) 02/11/25 05:24 BUN 17 mg/dl (6-23) 02/11/25 05:24 Creatinine 0.68 mg/dl (0.6-1.2) 02/11/25 05:24 Est Cr Clr Drug Dosing 84.1 ml/min 02/11/25 05:24 eGFR 94.81 02/11/25 05:24 BUN/Creatinine Ratio 25.0 (10-20) H 02/11/25 05:24 Glucose 106 mg/dl (70-99(Fasting)) H 02/11/25 05:24 Calcium 8.7 mg/dl (8.6-10.3) 02/11/25 05:24 Magnesium 2.0 mg/dl (1.7-2.4) 02/11/25 05:24 Total Bilirubin 0.5 mg/dl (0.2-1.0) 02/10/25 15:02 AST 15 U/L (13-39) 02/10/25 15:02 ALT 11 U/L (7-52) 02/10/25 15:02 Alkaline Phosphatase 83 U/L (34-104) 02/10/25 15:02 Troponin I High Sens 395.1 pg/ml (0-14) H* D 02/11/25 05:24 C-Reactive Protein 0.54 mg/dl (0-0.5) H 02/10/25 15:02 Total Protein 6.8 gm/dl (6.0-8.3) 02/10/25 15:02 Albumin 3.6 gm/dl (3.4-5.0) 02/10/25 15:02 Globulin 3.2 gm/dl (2.5-4.0) 02/10/25 15:02 Albumin/Globulin Ratio 1.1 (0.9-2) 02/10/25 15:02 Lipase 17 U/L (11-82) 02/10/25 15:02 Urine Color Dark Yellow 02/10/25 Unknown Urine Appearance Turbid (Clear) A 02/10/25 Unknown Urine pH 5.5 (4.5-7.5) 02/10/25 Unknown Ur Specific [place] 1.024 (1.000-1.030) 02/10/25 Unknown Urine Protein 2+ (Negative) H 02/10/25 Unknown Urine Glucose (UA) Negative (Negative) 02/10/25 Unknown Urine Ketones Trace (Negative) H 02/10/25 Unknown Urine Blood Negative (Negative) 02/10/25 Unknown Urine Nitrite Positive (Negative) A 02/10/25 Unknown Urine Bilirubin Negative (Negative) 02/10/25 Unknown Urine Urobilinogen Negative (Negative) 02/10/25 Unknown Ur Leukocyte Esterase 2+ (Negative) H 02/10/25 Unknown Urine WBC (Auto) 21-50 /hpf (0-5) H 02/10/25 Unknown Urine RBC (Auto) >20 /hpf (0-2) H 02/10/25 Unknown U Hyaline Cast (Auto) 6-10 /lpf (0-2) H 02/10/25 Unknown U Epithel Cells (Auto) 0-2 /hpf (0-2) 02/10/25 Unknown Urine Bacteria (Auto) 4+ (None Seen) H 02/10/25 Unknown Calcium Oxalate Crystal Present (None Prsent) A 02/10/25 Unknown Urine Comment 02/10/25 Unknown Impressions Chest X-Ray 02/10/25 15:16 XR chest 1V portable CLINICAL HISTORY: Chest pain, nonspecific COMPARISON STUDY: 11/20/2024 FINDINGS: Heart size and pulmonary vasculature are normal. No consolidation or pleural effusion. No pneumothorax. IMPRESSION: No acute findings. ACT 112: Negative or not required by law. Electronically signed by: Paulino Bell M.D. 02/10/2025 3:58 PM Medications Administered Current Inpatient Medications Bupropion HCl (Bupropion Xl 300 Mg Tabcr) 300 mg PO QAM [facility] Stop: 03/13/25 08:59 Last Admin: 02/11/25 08:37 Dose: 300 mg Bupropion HCl (Bupropion Xl 150 Mg Tabcr) 150 mg PO QAM [facility] Stop: 03/13/25 08:59 Last Admin: 02/11/25 08:36 Dose: 150 mg Duloxetine HCl (Duloxetine Hcl 20 Mg Cap) 20 mg PO QAM [facility] Stop: 03/13/25 08:59 Last Admin: 02/11/25 08:36 Dose: 20 mg Enoxaparin Sodium (Enoxaparin Inj 40 Mg/0.4 Ml Syr) 40 mg SQ Q24H [facility] Stop: 03/12/25 20:59 Last Admin: 02/10/25 20:35 Dose: 40 mg Epinephrine HCl (Epinephrine Inj 1 Mg/Ml Amp) 0.3 mg IM DAILY PRN PRN Reason: Allergic Reaction Stop: 03/12/25 18:18 Gabapentin (Gabapentin 600 Mg Tab) 1,800 mg PO BID [facility] Stop: 03/12/25 20:59 Last Admin: 02/11/25 08:36 Dose: 1,800 mg Hydroxyzine HCl (Hydroxyzine Hcl 10 Mg Tab) 10 mg PO HS PRN PRN Reason: itching Stop: 03/12/25 18:06 Last Admin: 02/10/25 23:20 Dose: 10 mg Ceftriaxone Sodium (Rocephin) 2,000 mg in 50 mls @ 100 mls/hr IV Q24H TON Stop: 02/15/25 20:59 Last Infusion: 02/10/25 22:16 Dose: Infused Acetaminophen (Ofirmev) 1,000 mg in 100 mls @ 400 mls/hr IV Q8H PRN PRN Reason: Pain or Fever Stop: 02/14/25 00:53 Last Infusion: 02/11/25 01:23 Dose: Infused Sodium Chloride (Nss) 500 mls @ 80 mls/hr IV .Q6H15M [facility] Stop: 02/11/25 14:14 Last Admin: 02/11/25 08:35 Dose: 80 mls/hr Losartan Potassium (Losartan Potassium 25 Mg Tab) 25 mg PO QAM [facility] Stop: 03/13/25 08:59 Last Admin: 02/11/25 08:36 Dose: 25 mg Melatonin (Melatonin 3 Mg Tab) 3 mg PO HS PRN PRN Reason: Sleep Stop: 03/12/25 18:06 Metoprolol Succinate (Metoprolol Succ 25mg Ext Rel Tab) 25 mg PO BID [facility] Stop: 03/12/25 20:59 Last Admin: 02/11/25 08:36 Dose: 25 mg Miscellaneous (Order Awaiting Action) 1 each N/A QS [facility] Stop: 03/12/25 18:29 Last Admin: 02/11/25 07:36 Dose: Not Given Morphine Sulfate (Morphine Sulfate Cr 15 Mg Tabcr) 15 mg PO Q12H [facility] Stop: 02/24/25 21:44 Last Admin: 02/11/25 09:50 Dose: 15 mg Ondansetron HCl (Ondansetron Inj 2 Mg/Ml 2 Ml Vial) 4 mg IV Q6H PRN PRN Reason: Nausea Stop: 03/12/25 18:06 Last Admin: 02/10/25 18:49 Dose: 4 mg Oxycodone HCl (Oxycodone Hcl Ir 5 Mg Tab (Immediate Release)) 10 mg PO Q6H PRN PRN Reason: pain Stop: 02/24/25 18:06 Last Admin: 02/11/25 08:35 Dose: 10 mg Pantoprazole Sodium (Pantoprazole 40 Mg Tab) 40 mg PO BID TON Stop: 03/12/25 20:59 Last Admin: 02/11/25 08:36 Dose: 40 mg Sennosides (Senna 8.6 Mg Tab) 8.6 mg PO HS TON Stop: 03/12/25 20:59 Last Admin: 02/10/25 20:34 Dose: 8.6 mg Sumatriptan Succinate (Sumatriptan Succinate 50 Mg Tab) 50 mg PO DAILY PRN PRN Reason: migraine headache (mild) Stop: 03/12/25 18:06 Sumatriptan Succinate (Sumatriptan Succinate 100 Mg Tab) 100 mg PO DAILY PRN PRN Reason: Migraine Headache (severe) Stop: 03/12/25 18:06 Timolol Maleate (Timolol Maleate 0.5% Op Soln 5 Ml Btl) 1 drops OPB QAM TON Stop: 03/13/25 08:59 Last Admin: 02/11/25 08:37 Dose: 1 drops PG Care Time/CCT Total # of Minutes Spent Total Time Spent with Patient: Total time spent is greater than 50% in coordination of care (as documented) at patient's floor/unit and/or counseling patient: [place] [address] IN/OBS CONSULT LVL 5,80M Patient Type New Medical Decision Making High Complexity Diagnoses SVT (supraventricular tachycardia) I47.10 Elevated troponin R79.89 Acute UTI N39.0 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
--- NOTE | 2025-02-11 13:50 | XCELERA ---
[id number] [id number]
[2025-02-11] MEDS: ACETAMINOPHEN 325 MG TAB PO PRN (15:09)
--- NOTE | 2025-02-12 18:05 | Hospitalist Progress Note ---
"Date of Service February 12, 2025 Assessment & Plan (1) SVT (supraventricular tachycardia): (2) Painful total knee replacement, left: (3) Chronic pain: (4) Depression: (5) Caffeine use: (6) Excessive use of nonsteroidal anti-inflammatory drug (NSAID): (7) Acute UTI: Plan This patient is a 69-year-old female with PMH of recurrent SVTs who presented on 02/10 for acute onset of chest palpitations, chest pain, SOB, dizziness, and vision changes. She was found to be in SVT at 160 bpm on EMS arrival. Patient received adenosine 6 mg IV x 1 en route. #Episode of SVT | elevated troponin Patient remains hemodynamically stable; chest pain free on 02/11 EKG on arrival revealed NSR without acute ischemic changes when compared to October 2024 Repeat EKG revealed no acute changes ischemic changes or ST elevations approximate 5 hours after initial EKG was taken Troponin trend: 81 -> 497 -> 526 -> 395 Suspect this is secondary to ischemia in the setting of tachyarrhythmia Last echocardiogram on 06/22/2024 revealed LVEF at 60-65%; grade 1 diastolic dysfunction Repeat echocardiogram still pending Patient is unsure what triggers her episodes of SVT, but possible culprits include (1) back pain/spasm that proceeded episode, (2) recurrence of UTI, and (3) financial stressors, among other etiologies Continuous telemetry to monitor for reoccurrence Keep K >4, mag >2 If SVT recurs, attempt vasovagal maneuver and recommend repeating the last effective dose of adenosine (6 mg IV) If SVT is refractory to adenosine 6 mg/12 mg/18 mg IV x 3, administer AV rayne blocking agent [facility] consult appreciated Patient will require outpatient EPS and possible ablation Upcoming appointment with Dr. Lilly on Saturday 02/17 #Caffeine use | excessive use of NSAIDs | H/o gastric bypass Patient reports that she was using [place] back & body extra strength tablets at home (5 tablets TID for a total of 15 tabs daily) This medication includes aspirin 500 mg and caffeine 32.5 mg per tablet In other words, patient's daily aspirin intake has been ~7500 mg daily H/p significant gastric ulcer / bleed in 2022 due to large amount of NSAID/aspirin use High risk for PUD/gastritis Suspect caffeine may also be contributing to her recurrent SVT Continue Protonix 40 mg twice daily for GI PPx Strongly recommended that the patient discontinue this medication upon discharge Last EGD 11/23/2024 revealed normal jejunum and healthy appearing mucosa of the gastrojejunal anastomosis; suspected NSAID induced dyspepsia at the time However, recurrent episodes of 10/10 epigastric pain in the hospital on 02/12; first episode occurred 30-45min after eating; ? Peptic ulcer vs. dyspepsia Gastroenterology consult appreciated # Acute UTI [facility] hospitalization 01/29 - 02/01 for acute UTI UCx 01/28 grew Klebsiella pneumonia with sensitivity to cephalosporins Treated with p.o. cephalexin while in the hospital Recurrence of urinary symptoms on arrival (burning with urination) UA positive with 4+ bacteria on arrival Initiate ceftriaxone 2000 mg IV q24h Follow current UCx ? Potential trigger for SVT #Loosening of left TKR hardware | left knee pain Left knee is large and swollen when compared to the right knee on clinical exam Not warm to touch, not erythematous; no joint effusion appreciated ESR WNL and CRP minimally L Seen by orthopedics during her most recent admission 01/29 Consistent with aseptic loosening at that time Would benefit from revision of total left knee arthroplasty Significant setback/pain when walking on the left knee on 02/12 PT evaluation appreciated for discharge disposition #Chronic pain syndrome | narcotic dependence Patient requesting p.o. morphine rather than oxycodone as this has worked better for her in the past Verified in PDMP that she has had p.o. morphine in the past Upcoming appointment with pain management clinic on Wednesday 02/14 Plan for d/c morphine on 15 mg p.o. q12h PRN (2-3 tabs) to help get through to this pain management appointment #HTN Continue metoprolol Decrease losartan 25 -> 12.5 QAM Continue 12.5 on discharge #Neuropathy Continue gabapentin at home doses (1800mg BID) # Depression and anxiety Continue Wellbutrin, Cymbalta It should be noted that patient was on suicide precautions during her most recent admission Cleared by psych on 01/30 #Glaucoma Continue home drops or substitutions Disposition: Continued stay on PCU telemetry due to recurrence of epigastric pain on 02/12, as well as difficulty walking on her left knee VTE PPx: Lovenox 40 mg SQ q24h Admission and Anticipated Discharge Date Admission Date: February 10, 2025 Supervising Physician Co-Signing Physician Notes Attending Attestation - Chart reviewed, care plan d/w REFUGIO Gonzales. I agree w/ the delacruz components of his documentation. Bill Rodriguez MD Subjective Mrs. Mcgraw reports that she had difficulty sleeping last night. She is having significant pain in the left knee and lower back this morning. She believes this was due to ambulating to and from the bathroom multiple times yesterday. Patient normally uses a walker and wheelchair at home. She reports the pain in her left knee is worse today when compared to yesterday, and that the p.o. morphine is not helping. Pain is mainly confined to the superior and medial knee. Exacerbated when bearing weight.patient is on the fence about going home today. She is requesting a physical therapy evaluation at this time, and does report that she would be open to rehab if needed. However, she would like to keep her pain management appointment scheduled for Wednesday 02/14 if possible. She also reports that she has a follow-up appointment with cardiology (Dr. Lilly) on Saturday 02/17 to discuss a cardiac ablation. Patient denies recurrence of SVT like symptoms, she did have 1 episode of chest pain transverse across the lower rib cage bilateral that lasted approximately 1 minute yesterday. ROS: Patient endorses 1 episode of brief chest pain, severe left knee pain (worse with ambulation), lower back pain, productive cough (green sputum production), burning with urination, and increased urinary frequency. Patient denies fever, chest palpitations, or SOB. Addendum at 1200: Alerted by nursing staff that the patient had awoken from sleep with 10 out of 10 chest pain. Assessed patient at bedside. Stat EKG did not reveal any acute ischemic changes. Troponin was ordered (continues to downtrend 395 -> 179 from prior). Patient reports that this pain lasted for approximately 1 to 2 minutes. In terms of location, she reports it was epigastric with radiation under her ribs. No radiation to the left side of the chest wall, left shoulder, or down left arm. Patient reports that this occurred approximately 30 to 45 minutes after eating. Review of Systems Review of Systems: See HPI above Physical Exam Physical Exam: General: no acute distress; non-toxic appearing; well-nourished; cooperative; SpO2 95% on RA HEENT: normocephalic, atraumatic; no scleral icterus; PERRLA; vision and hearing intact Neck: supple; trachea midline Skin: warm, dry without signs of tenting; no cyanosis; no rashes, bruising, lesions, or erythema noted CV: Left side of chest wall is mildly TTP; no rashes appreciated in the chest wall; RRR around 60 bpm; pulses intact and symmetric at radial, DP, and PT Lungs: no acute respiratory distress; symmetrical chest wall expansion; clear breath sounds across all lung arthur w/o adventitious sounds; no wheezing ABD: Soft, mildly TTP in the epigastric region; BS present; no rebound/guarding; no distention MSK: no tics or fasciculations; no edema noted in the LEs b/l, nonerythematous; patient's left knee is large/swollen when compared to the right, not warm to touch, nonerythematous; no joint effusion appreciated Neuro: A&Ox3; normal mood and affect; fluent speech; no focal deficits; diminished sensation in the right lower extremity when compared to the left (assessed via light touch at the knees) Results & Data Results & Data Vital Signs (Past 12 Hours) Vital Signs Temp Pulse Pulse Resp BP Pulse Ox O2 Del Method 02/12/25 15:09 36.9 C 65 16 129/81 93 Room Air 02/12/25 11:16 36.7 C 65 18 116/60 94 Room Air 02/12/25 07:25 36.7 C 71 18 115/66 94 Room Air 02/12/25 07:24 72 PG Care Time/CCT Total # of Minutes Spent Total Time Spent with Patient: Total time spent is greater than 50% in coordination of care (as documented) at patient's floor/unit and/or counseling patient: Coding [place] [address] SUB INP/OBS CARE 3/50MIN Patient Type Established Medical Decision Making High Complexity Diagnoses SVT (supraventricular tachycardia) I47.10 Painful total knee replacement, left T84.84XA; Z96.652 Encounter type: initial encounter Other chronic pain G89.29 Chronic pain type: other chronic pain Depression, unspecified depression type F32.A Depression Type: unspecified Caffeine use Z78.9 Excessive use of nonsteroidal anti-inflammatory drug (NSAID) F19.90 Acute UTI N39.0 (2) Painful total knee replacement, left Encounter type: initial encounter Qualified Code(s): T84.84XA - Pain due to internal orthopedic prosthetic devices, implants and grafts, initial encounter; Z96.652 - Presence of left artificial knee joint (3) Chronic pain Chronic pain type: other chronic pain Qualified Code(s): G89.29 - Other chronic pain (4) Depression Depression Type: unspecified Qualified Code(s): F32.A - Depression, unspecified"
[2025-02-12] MEDS: ACETAMINOPHEN 1,000 MG/100 ML VIAL IV STA (20:00)
[2025-02-13] MEDS: LOSARTAN POTASSIUM 25 MG TAB PO SCH (08:51)
--- NOTE | 2025-02-13 10:21 | Discharge Summary ---
Discharge Summary Date of Service February 13, 2025 Principal Dx & Hospital Course #1 = Principal Diagnosis (1) SVT (supraventricular tachycardia): (2) Painful total knee replacement, left: (3) Chronic pain: (4) Depression: (5) Caffeine use: (6) Excessive use of nonsteroidal anti-inflammatory drug (NSAID): (7) Acute UTI: Plan #Episode of SVT | elevated troponin This patient is a 69-year-old female with PMH of recurrent SVTs who presented on 02/10 for acute onset of chest palpitations, chest pain, SOB, dizziness, and vision changes. She was found to be in SVT at 160 bpm on EMS arrival. Patient received adenosine 6 mg IV x 1 en route. No recurrance of SVT while she was here, but was refusing to wear monitor for most of her stay. Troponin peaked at 526 and downtrending, likely secondary to ischemia in the setting of tachyarrhythmia. Echo showed normal LV function, bordeline LA dilation, normal EF. [facility] cardiology consulted - rec decrease lisinopril, OP appointment for EPS and possible ablation, appointment 02/17. Patient is unsure what triggers her episodes of SVT, but possible culprits include (1) back pain/spasm that proceeded episode, (2) recurrence of UTI, and (3) financial stressors, among other etiologies #Caffeine use | excessive use of NSAIDs | H/o gastric bypass Patient reports that she was using Chelsea back & body extra strength tablets at home (5 tablets TID for a total of 15 tabs daily) that would be aboout ~7500 mg daily of aspirin. Does have a hx of gastric ulcer. Patient having epigastric pain - GI consulted, no acute intevention, working on referral to teritary care. Continue BID PPI. Decrease aspiring use. # Acute UTI [facility] hospitalization 01/29 - 02/01 for acute UTI. Still with urinary symptoms, UC with klebsiella. Given Ceftiaxone - transition to augmentin on discharge. #Loosening of left TKR hardware | left knee pain Left knee is large and swollen when compared to the right knee on clinical exam - no signs of infection, ESR WNL and CRP minimally elevated. Seen by orthopedics during her most recent admission 01/29 - Consistent with aseptic loosening at that time, Would benefit from revision of total left knee arthroplasty. OP ortho follow up. #Chronic pain syndrome | narcotic dependence Patient requesting p.o. morphine rather than oxycodone as this has worked better for her in the past - Upcoming appointment with pain management clinic on Wednesday 02/14. Given 3 tabs of PO morphine to get to her follow up appointment. #HTN- Continue metoprolol. Decrease losartan 25 -> 12.5 QAM #Neuropathy - Continue gabapentin at home doses (1800mg BID) # Depression and anxiety - Continue Wellbutrin, Cymbalta #Glaucoma - Continue home drops Disposition: discharge to home today Notes For Next Care Provider Medication Changes From Visit should stop taking so much aspirin lisinopril decreased course of augmentin Admission HPI Per Admitting Provider Mrs. Mcgraw is a 69-year-old female with PMH of anxiety, iron deficiency anemia, depression, anastomotic ulcer, and SVTs. She presented via EMS on 02/10 after going into an episode of SVT. This occurred at approximately 11:16 AM. Patient was sitting on her couch watching TV, when she suddenly felt diaphoretic and sweaty. She then went into chest palpitations, chest pain, lightheadedness, and exhibited difficulty breathing. She reports that this was different than prior episodes of SVT, because she could not catch her breath, and her vision was "black around the edges". Any movement would "wear [her] out instantly". Her chest pain was an 8 out of 10 at the time, with radiation down the left arm. No personal history of MIs. She does have history of a cardiac ablation in 2002 at [facility]. No family history of MIs, but does have a maternal grandmother who of a stroke. Patient reports that the pain in her left chest is still present at a 3 out of 10, and she characterizes it as an aching pain in her left chest wall and shoulder. While patient is unsure what triggers her episodes of SVT, she does report that she woke up with significant back pain this morning, and was having a back/muscle spasm just prior to the onset of this episode. Patient denies caffeine usage. She does endorse recent life stressors: Her cat needs to have 2 teeth removed, and her Social Security was recently docked leading to financial stress. No sick contacts to her knowledge. However, she does have burning with urination, and was recently hospitalized at [facility] for a UTI. Patient's first episode of SVT was approximately 2 years ago; since that time, the frequency of these episodes has been increasing, to the point where an episode might occur every couple months. Patient did not take her regular morning medications today. She reports no missed doses with her medications over the past week. She is not currently on blood thinners. No recent injuries to the chest wall or muscle strains. Patient denies smoking, tobacco use, alcohol use, or IV drug use. VSS at time of admission. EMS course: BP was reportedly 74/54 on EMS arrival. HR ~160bpm, and SVT was seen on rhythm strip. Patient received adenosine 6 mg IV en route and converted to NSR. She was also given 100 mcg of fentanyl en route. ED course: Toradol 15 mg IV Oxycodone 5 mg p.o. ROS: Patient endorses feeling feverish / sweating just prior to onset of episode, chest pain (resolved), SOB (resolved), mild pleuritic CP, back pain/spasm just prior to episode, productive cough x 2 week (green sputum production), nausea, burning with urination, and diarrhea. Patient denies hemoptysis, abdominal pain, or numbness/tingling in the arms. Discharge Exam General: NAD, VS as above Resp: normal respiratory effort, lungs clear to auscultation CV: RRR, no murmur, Abd: normal bowel sounds, non tender, no hepatosplenomegaly Extremities: Moves all extremities, no edema Neuro: A&O x3, Skin: intact, no lesions noted Discharge Plan Discharge Items Patient Disposition: Home - Self-Care Reason For Visit: SVT + CHEST PAIN Discharge Diagnosis: SVT Condition on Discharge: Fair Activity: Resume your previous activity Non-emergency contact: Primary Care Provider Call non-emergency contact if: you have any medication questions, your symptoms worsen, your pain is not controlled and you have a fever Follow-up/Referrals: Sera Oliver CRNP [Primary Care Provider] - (follow up within one week ) Leighann Lilly DO [Physician] - (Keep appointment 02/17) Diet: Regular Addtl Attending Provider Instructions: Ms. Mcgraw, You were hospitalized after having an irregular heart rythym at home, called SVT. This improved with adenosine and thankfully we did not see any recurrence during the time you were willing to wear a heart monitor. [facility] this week to continue your workup. Your losartan has been decreased t0 12.5mg daily. There was also concerns about your epigastric pain - you were seen by GI and they are following up on your referral to tertiary care. There is also concerns with the amount of Chelsea back & body extra stength that includes a large amount of Aspirin. With the amount you are taking, the amount of Aspirin you are recieving is WAY over the max daily dose, espeically in someone who has had gastric bypass which puts you extra high risk for ulcer. Please cut back on this usage. Very important that you are taking your protonix twice daily. You will be given Augmentin for your UTI. Take the first dose PM 9/15. Please take this with food. You will be given a few tabs of extended release morphine to get your to your pain management appointment tomorrow. Activity: You can do normal everyday activities as your body allows. Take rest breaks if you feel tired. Do not overexert. Stop activity if you have pain, shortness of breath or feel dizzy. Follow-up appointments: Make an appointment with your primary care physician within one week of discharge. A copy of this summary will be sent to them. Every time you see your primary care physician, or any other doctor, bring your medication list, and a list of questions. CONTACT YOUR PRIMARY CARE PROVIDER if you experience any of the following: Shortness of breath or difficulty breathing Fevers or chills Feeling tired with normal activity or experiencing dizziness or fainting Difficulty following your treatment plan, or difficulty taking medications CALL 911 OR GO TO THE EMERGENCY DEPARTMENT if you experience any of the following: Severe abdominal pain or nausea/vomiting Severe chest pain, or chest pain that radiates (moves) to your jaw or arm Sudden, severe shortness of breath or difficulty breathing Thank you for allowing us to participate in your care. Pending Studies at Discharge: No Stand-Alone Forms: My [facility] Medications and DC Order Prescriptions: New losartan 25 mg Tablet 12.5 mg PO QAM 30 Days Qty: 15 0RF morphine 15 mg Tablet Extended Release 15 mg PO Q12H Qty: 3 0RF amoxicillin-pot clavulanate 875-125 mg tablet 1 tab PO BID Qty: 8 0RF Continued sumatriptan succinate 50 mg tablet 50 mg PO DAILY PRN (Reason: migraine headache) Qty: 30 1RF Rx Instructions: do not exceed 4 doses per 24 hrs sumatriptan succinate 100 mg tablet 100 mg PO DAILY PRN (Reason: Migraine Headache) Qty: 30 3RF metoprolol succinate 25 mg tablet extended release 24 hr 25 mg PO BID Qty: 180 3RF loperamide [Imodium A-D] 2 mg capsule 2 mg PO Q6H PRN (Reason: Diarrhea) ondansetron 8 mg tablet,disintegrating 8 mg PO Q8H Qty: 90 3RF bupropion HCl [Wellbutrin XL] 300 mg Tablet Extended Release 24 Hr 300 mg PO QAM Rx Instructions: TOTAL DOSE 450 MG--TAKES WITH 150 MG TAB. bupropion HCl [Wellbutrin XL] 150 mg Tablet Extended Release 24 Hr 150 mg PO QAM Rx Instructions: TOTAL DOSE 450 MG--TAKES WITH 300 MG TAB. epinephrine [EpiPen] 0.3 mg/0.3 mL Auto-Injector 0.3 mg IM DIRECTED PRN (Reason: Allergic Reaction) duloxetine 20 mg capsule,delayed release(DR/EC) 20 mg PO QAM gabapentin 600 mg tablet 1,800 mg PO BID lactase [Dairy-Aid] 3,000 unit tablet 3,000 unit PO TIDM PRN (Reason: WITH MILK PRODUCTS NEEDED) timolol maleate 0.5 % drops 1 drp OPB QAM tafluprost (PF) 0.0015 % dropperette 2 drp OPB HS diphenhydramine HCl [Benadryl] 25 mg Capsule 25 mg PO DAILY PRN (Reason: Allergy Symptoms) acetaminophen 325 mg Tablet 650 mg PO Q4H PRN (Reason: fever or pain) Qty: 60 0RF hydroxyzine HCl 10 mg Tablet 10 mg PO HS PRN (Reason: itching ) Qty: 30 0RF pantoprazole 40 mg Tablet,Delayed Release (Dr/Ec) 40 mg PO BID Qty: 60 0RF sennosides [Senna Laxative] 8.6 mg tablet 8.6 mg PO HS Qty: 30 0RF oxycodone 5 mg Tablet 10 mg PO Q6H PRN (Reason: pain) Qty: 40 0RF Discontinued losartan 25 mg tablet 25 mg PO QAM Qty: 90 3RF Discharge Orders: Discharge Order (Routine); Ordered 02/13/25 Ordered By: Denise Reyes/Other Patient Handouts: Supraventricular Tachycardia Tx Admission Data Admit Date/Time: 02/10/25 17:04 Attending Provider: Bill Rodriguez Admit Provider: Anne Villegas Primary Care Provider: Sera Oliver Other Providers: Anne Villegas; Leighann Lilly; Nomi Gonzalez Jr Hospital Stay Data Consultations 02/10/25 16:55 ED Decision to Admit Stat 02/10/25 17:10 Consult Cardiology Routine 02/12/25 18:06 Consult Gastroenterology Routine Diagnostic Imagining Performed Chest X-Ray 02/10/25 15:16 XR chest 1V portable CLINICAL HISTORY: Chest pain, nonspecific COMPARISON STUDY: 11/20/2024 FINDINGS: Heart size and pulmonary vasculature are normal. No consolidation or pleural effusion. No pneumothorax. IMPRESSION: No acute findings. ACT 112: Negative or not required by law. Electronically signed by: Paulino Bell M.D. 02/10/2025 3:58 PM Pending Results Patient Have Any Pending Studies at Discharge: No Discharge Instructions Given to Patient (Per Discharging Provider) Ms. Mcgraw, You were hospitalized after having an irregular heart rythym at home, called S VT. This improved with adenosine and thankfully we did not see any recurrence during the time you were willing to wear a heart monitor. You were seen by cardiology who has scheduled an appointment this week to continue your workup. Your losartan has been decreased t0 12.5mg daily. There was also concerns about your epigastric pain - you were seen by GI and they are following up on your referral to tertiary care. There is also concerns with the amount of Chelsea back & body extra stength that includes a large amount of Aspirin. With the amount you are taking, the amount of Aspirin you are recie ving is WAY over the max daily dose, espeically in someone who has had gastric bypass which puts you extra high risk for ulcer. Please cut back on this usage. Very important that you are taking your protonix twice daily. You will be given Augmentin for your UTI. Take the first dose PM 02/13. Please take this with food. You will be given a few tabs of extended release morphine to get your to your pain management appointment tomorrow. Activity: You can do normal everyday activities as your body allows. Take rest breaks if you feel tired. Do not overexert. Stop activity if you have pain, shortness of breath or feel dizzy. Follow-up appointments: Make an appointment with your primary care physician within one week of discharge. A copy of this summary will be sent to them. Every time you see your primary care physician, or any other doctor, bring your medication list, and a list of questions. CONTACT YOUR PRIMARY CARE PROVIDER if you experience any of the following: Shortness of breath or difficulty breathing Fevers or chills Feeling tired with normal activity or experiencing dizziness or fainting Difficulty following your treatment plan, or difficulty taking medications CALL 911 OR GO TO THE EMERGENCY DEPARTMENT if you experience any of the following: Severe abdominal pain or nausea/vomiting Severe chest pain, or chest pain that radiates (moves) to your jaw or arm Sudden, severe shortness of breath or difficulty breathing Thank you for allowing us to participate in your care. Total Time Total Time Spent Total Time Spent (In Minutes): Time spent day of discharge 36 minutes including direct patient care, medication reconciliation, documentation, review of labs and images, and coordination of care. Case discussed with GI Coding Level of Care Code 28257 INP/OBS DISCH >30 MIN Diagnoses SVT (supraventricular tachycardia) I47.10 Painful total knee replacement, left T84.84XA; Z96.652 Encounter type: initial encounter Other chronic pain G89.29 Chronic pain type: other chronic pain Depression, unspecified depression type F32.A Depression Type: unspecified Caffeine use Z78.9 Excessive use of nonsteroidal anti-inflammatory drug (NSAID) F19.90 Acute UTI N39.0
--- NOTE | 2025-02-13 11:06 | Gastrointestinal Consultation ---
Date of Consultation February 13, 2025 Assessment & Plan (1) Nausea: Plan Patient admitted for episode of SVT which she has has had in the past. 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 she currently does not offer GI concerns currently. Primary team is discharging this afternoon. - recommend avoidance of nsaids. - recommend she continue with protonix 40mg bid as outpatient. - would also start famotidine 40mg qhs - she never started this after her last outpatient GI appointment. - recommend outpatient tertiary evaluation given chronic nausea as planned. I am having our office looking into the status of this. Supervising Physician Co-Signing Physician Notes Hospital labs, data, records and imaging reviewed. The case was discussed with the GI HERIBERTO at length and I agree with his assessment and plan as outlined above. The patient was discharged prior to my ability to examine the patient physically. History of Present Illness Reason for Consultation: nsaid induced dyspepsia Requesting Physician: Darci TOM Attending Physician: Bill Rodriguez MD History of Present Illness Patient is a 69 year old female with a past medical history of recurrent SVTs who presented to the ED on 02/10/25 for acute onset of chest palpitations, chest pain, SOB, dizziness, and vision changes. She was found to be in SVT at 160 bpm on EMS arrival. Patient received adenosine 6 mg IV x 1 en route via [place]ah. She has issues with chronic nausea over the past year. she notes episodes can be worse when she has SVT episodes. She can have episodes of vomiting a few times a week. she also can get some heartburn at times. In the outpatient setting she had been given an H2 maren to take with her PPI, but she never started this. It was also advised she consider a tertiary evaluation, but she has not had set up yet. Currently, she tells me that she is feeling well and GI ros are unremarkable. no nsaids. EGD 11/23/24 normal examined jejunum, roma-en- y gastrojejunostomy with gastrojejunal anastomosis characterized by healthy appearing mucosa. normal stomach. z line regular. normal esophagus. Pathology: Small bowel (biopsy): - Multiple benign strips of small bowel mucosa with no pathologic diagnoses are seen. - Villous architecture is maintained. - The clinical history of nausea, vomiting and diarrhea is noted. Stomach (biopsy): - Mild, focal, chronic, inactive gastritis is seen. - Atrophy and intestinal metaplasia are not seen. - An immunohistochemical stain for the Helicobacter pylori organisms is negative. 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 Esophagus, "Z-line biopsy at 32 cm" (biopsy): - Moderately inflamed benign gastric mucosa entirely lacking intestinal metaplasia is seen. - Stratified squamous epithelium is not present on levels x 3. Esophagus, mid (biopsy): - Multiple benign strips of stratified squamous epithelium with no pathologic diagnoses are seen. Allergies Allergy/AdvReac Type Severity Reaction Status Date / Time bee venom protein (honey bee) Allergy Severe Anaphylaxis Verified 01/05/25 12:36 sulfamethoxazole Allergy Unknown at age 20, Verified 01/05/25 12:36 can not remember what happened trimethoprim Allergy Unknown at age 20, Verified 01/05/25 12:36 can not remember what happened aripiprazole [From Abilify] AdvReac Severe Tremors Verified 01/05/25 12:36 lactose AdvReac Intermediate MILK & ICE Verified 01/05/25 12:36 CREAM--DIARRHEA metoclopramide [From Reglan] AdvReac Intermediate TONGUE Verified 01/05/25 12:36 "TICS" Home Medications Medication Instructions Recorded Confirmed Type bupropion HCl 150 mg 24 hr tablet, 150 mg PO QAM 06/03/22 02/10/25 History extended release (Wellbutrin XL) bupropion HCl 300 mg 24 hr tablet, 300 mg PO QAM 06/03/22 02/10/25 History extended release (Wellbutrin XL) tafluprost (PF) 0.0015 % eye drops 2 drp OPB HS 09/24/23 02/10/25 History in a dropperette timolol maleate 0.5 % eye drops 1 drp OPB QAM 09/24/23 02/10/25 History epinephrine 0.3 mg/0.3 mL 0.3 mg IM DIRECTED PRN Allergic 11/29/23 02/10/25 History injection, auto-injector (EpiPen) Reaction loperamide 2 mg capsule (Imodium 2 mg PO Q6H PRN Diarrhea 06/17/24 02/10/25 History A-D) duloxetine 20 mg capsule,delayed 20 mg PO QAM 08/03/24 02/10/25 History release gabapentin 600 mg tablet 1,800 mg PO BID 08/04/24 02/10/25 History diphenhydramine HCl 25 mg capsule 25 mg PO DAILY PRN Allergy Symptoms 09/06/24 02/10/25 History (Benadryl) sumatriptan succinate 50 mg tablet 50 mg PO DAILY PRN migraine 11/01/24 02/10/25 Rx headache #30 tabs lactase 3,000 unit tablet 3,000 unit PO TIDM PRN WITH MILK 11/20/24 02/10/25 History (Dairy-Aid) PRODUCTS NEEDED sumatriptan succinate 100 mg tablet 100 mg PO DAILY PRN Migraine 12/16/24 02/10/25 Rx Headache #30 tabs metoprolol succinate 25 mg 25 mg PO BID #180 tabs 12/22/24 02/10/25 Rx tablet,extended release 24 hr ondansetron 8 mg disintegrating 8 mg PO Q8H #90 tabs 01/05/25 02/10/25 Rx tablet acetaminophen 325 mg tablet 650 mg (2 x 325 mg) PO Q4H PRN 02/01/25 02/10/25 Rx fever or pain #60 tabs hydroxyzine HCl 10 mg tablet 10 mg PO HS PRN itching #30 tabs 02/01/25 02/10/25 Rx oxycodone 5 mg tablet 10 mg (2 x 5 mg) PO Q6H PRN pain 02/01/25 02/10/25 Rx #40 tabs pantoprazole 40 mg tablet,delayed 40 mg PO BID #60 tabs 02/01/25 02/10/25 Rx release sennosides 8.6 mg tablet (Senna 8.6 mg PO HS #30 tabs 02/01/25 02/10/25 Rx Laxative) amoxicillin 875 mg-potassium 1 tab PO BID #8 tabs 02/13/25 Rx clavulanate 125 mg tablet losartan 25 mg tablet 12.5 mg (1/2 x 25 mg) PO QAM 30 02/13/25 Rx days #15 tabs morphine 15 mg tablet,extended 15 mg PO Q12H #3 tabs 02/13/25 Rx release Patient History Medical History Gastric ulcer Gastritis Medical marijuana use has not used several years Diarrhea Melena Hx MRSA infection [facility] years ago, "it was in her blood" Irritable bowel syndrome with constipation Hepatitis C hx - treated History of anesthesia reaction hx of waking up during procedures Bulging discs Scoliosis Spinal stenosis Glaucoma Attention deficit disorder (ADD) Migraine GI bleed admitted to [facility] 06/2022; no current problems Surgical History H/O gastric bypass History of partial hysterectomy History of bilateral breast reduction surgery History of bilateral tubal ligation Status post right foot surgery x7--hardware in place Status post left foot surgery x7-hardware in place History of open reduction and internal fixation (ORIF) procedure right ankle--hardware in place History of fusion of cervical spine C4-C5--normal ROM History of right shoulder replacement History of total right hip replacement History of total left knee replacement (TKR) x2 History of colonoscopy History of esophagogastroduodenoscopy (EGD) History of cholecystectomy History of appendectomy History of mandibular surgery 1978--wired shut History of tooth extraction History of wisdom tooth extraction History of eye surgery right---scar tissue from cataract sx History of bilateral cataract extraction History of cardiac cath 2005 @ [facility]---"fistula in heart between 2 valves"--no stents; no cardio, just PCP History of lung biopsy right side--benign Family History Mother Colorectal cancer Father Lung cancer Family history of esophageal cancer Brother Family history of esophageal cancer Grandfather (Maternal) Family history of esophageal cancer Other No family history of adverse response to anesthesia Denies family history of Ovarian cancer Prostate cancer Myocardial infarction Breast cancer Social History Smoking Status: Never smoker Second Hand Exposure: No; Do You Dip or Chew Tobacco: No; Hx Alcohol Use: Yes Alcohol type: beer Hx Substance Use: No Preferred Language: Sami Communication Ability: Effective Visual Impairment: Limited Hearing Ability: Normal [employer] 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 [employer]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: No Beliefs That Will Affect Care: None marital status: Single Current Living Situation: Alone Current Living Situation Comment: live in one story home with her two cats current occupational status: retired How many Children do You have: 1 Feels Safe at Home: Yes Childhood Exposure to Second-Hand Smoke: No Diet: regular caffeine: No during the past year weight has: remained stable Dental Care, Regularly: Yes Physical Activity Frequency: 1-2 Times per Week Seatbelt Use: always Sunscreen Use: Yes Do you think of yourself as: straight/heterosexual Sexual Activity: has been sexually active, but not for at least 12 months Gender Identity: Female Assistive Devices: Cane, Walker and Wheelchair Review of Systems Review of Systems: All systems reviewed & are unremarkable except as noted in HPI & below Physical Exam Constitutional: WD/WN, vitals as above Respiratory: normal respiratory effort, lungs clear to auscultation Cardiovascular: Rate/Rhythm: regular rate and regular rhythm Gastrointestinal (Abdomen): mild mid epigastric tenderness to palpation, no guarding, soft, normal bowel sounds. Psychiatric: Orientation: alert and oriented x 3 Affect: euthymic affect Results & Data Vital Signs (Past 12 Hours) Vital Signs Temp Pulse Pulse Resp BP BP Pulse Ox 02/13/25 10:31 97.5 F L 63 16 124/71 157/80 H 91 02/13/25 07:00 97.5 F L 63 16 157/80 H 91 02/13/25 03:28 98.1 F 65 20 124/71 93 02/12/25 23:43 59 L O2 Del Method 02/13/25 10:31 02/13/25 07:00 Room Air 02/13/25 03:28 Room Air 02/12/25 23:43 Coding Level of Care Code 35105 INT INP/OBS CARE 2/55MIN Diagnoses Nausea R11.0
[2025-02-13 11:20] VITALS: BP 144/82; PULSE 60; RESP 18; TEMP 97.9; O2SAT 94
--- NOTE | 2025-02-13 12:59 | Electrocardiogram Report ---
Test Reason : Blood Pressure : */* mmHG Vent. Rate : 67 BPM Atrial Rate : 67 BPM P-R Int : 196 ms QRS Dur : 80 ms QT Int : 392 ms P-R-T Axes : 13 -6 19 degrees QTcB Int : 414 ms Normal sinus rhythm Normal ECG When compared with ECG of 10-Feb-2025 14:51, No significant change was found Confirmed by Shantanu Corona ([id number]) on 02/13/2025 12:58:27 PM Referred By: REFERRED SELF Confirmed By: Shantanu Corona
--- NOTE | 2025-02-15 10:54 | Electrocardiogram Report ---
Test Reason : Blood Pressure : */* mmHG Vent. Rate : 64 BPM Atrial Rate : 64 BPM P-R Int : 196 ms QRS Dur : 86 ms QT Int : 400 ms P-R-T Axes : 35 -7 22 degrees QTcB Int : 412 ms Normal sinus rhythm Normal ECG When compared with ECG of 10-Feb-2025 19:06, No significant change was found Confirmed by Shantanu Corona ([id number]) on 02/15/2025 10:54:03 AM Referred By: REFERRED SELF Confirmed By: Shantanu Corona
--- NOTE | 2025-02-15 11:51 | Electrocardiogram Report ---
Test Reason : Blood Pressure : */* mmHG Vent. Rate : 63 BPM Atrial Rate : 63 BPM P-R Int : 186 ms QRS Dur : 82 ms QT Int : 404 ms P-R-T Axes : 20 -17 21 degrees QTcB Int : 413 ms Normal sinus rhythm Normal ECG When compared with ECG of 11-Feb-2025 13:57, (unconfirmed) No significant change was found Confirmed by Shantanu Corona ([id number]) on 02/15/2025 11:51:16 AM Referred By: REFERRED SELF Confirmed By: Shantanu Corona
== END 2025-02-13 14:40 | disposition home or self-care (01) | DRG 309 ==
LOC: ED 14:44 → SUATTDRO 17:04 → 2S 17:04